=== PATIENT | male | born 1970 | race Caucasian/White ===

== ENCOUNTER 2017-10-17 17:39 | Emergency (ER) | payer MEDICAID, SELFPAY ==
[2017-10-17 17:40] VITALS: BP 142/98; PULSE 127; RESP 16; TEMP 36.4; O2SAT 98; BMI 27.8
[2017-10-17 18:51] LABS: Absolute Lymphocyte Count 3.68 X10^3/ul (0.83-4.51); Absolute Neutrophil Count 2.9 X10^3/uL (2.0-7.7); Basophil# 0.07 X10^3/uL; Eosinophil# 0.08 X10^3/uL; Eosinophils% 1.1 % (0-5); Hematocrit 49.2 % (40-54); Hemoglobin 17.4 g/dl (13.0-16.5); Lymphocyte # 3.68 X10^3/ul (4.0); Lymphocyte % 50.8 % (19-41); Mean Corp Hgb Conc 35.4 g/gl (32-36); Mean Corpuscular Hgb 30.7 pg (27.0-32.0); Mean Corpuscular Volume 86.9 fL (80-94); Mean Platelet Vol. 9.2 fl (6.2-12.0); Monocyte# 0.54 X10^3/uL; Monocyte% 7.4 % (0-10); Neutrophil # 2.88 X10^3/uL (2.7-7.7); Neutrophil % 39.7 % (47-70); Platelet Count 320 K/mm3 (150-450); RBC Distribution Width CV 14.2 % (11.6-14.6); RBC Distribution Width SD 45.2 fl (35.1-43.9); Red Blood Count 5.66 M/mm3 (4.6-6.2); White Blood Count 7.3 K/mm3 (4.4-11.0)
[2017-10-17 18:55] LABS: ALB/GLOB Ratio 0.8 RATIO (0.9-2.4); AST(SGOT) 22 U/L (15-37); Alanine Aminotransfer ALT/SGPT 29 U/L (16-61); Albumin, Serum 3.9 g/dL (3.2-5.0); Alkaline Phosphatase 132 U/L (45-117); Anion Gap 9 (5-15); BUN 7 mg/dL (7-18); BUN/Creat Ratio 7.9 RATIO (10-20); Calcium,Total 8.8 mg/dL (8.5-10.1); Chloride 102 mmol/L (98-107); Creatinine, Serum 0.88 mg/dL (0.70-1.30); EST Glomerular Filtration Rate 99 mL/min (>60); Est Glom Filt Rate - Afr Amer 120 mL/min (>60); Estimated Creatinine Clearance 111.71 ml/min; Globulin 4.6 g/dL (2.2-4.2); Glucose 233 mg/dL (74-106); Potassium 3.8 mmol/L (3.5-5.1); Protein, Total 8.5 g/dL (6.4-8.2); Sodium Level 135 mmol/L (136-145)
[2017-10-17 18:59] LABS: POSITIVE COUNT NO; POSITIVE DIFFERENTIAL NO; POSITIVE MORPHOLOGY NO
--- NOTE | 2017-10-17 19:07 | ED.RN ---
DR GONZALES NOTIFIED OF ETOH RESULTS
[2017-10-17] MEDS: LORazepam 2 MG/ML Syringe 1 MG IV (19:34)
[2017-10-17 19:46] VITALS: PULSE 105; RESP 18; O2SAT 98
--- NOTE | 2017-10-17 19:57 | ED.VISSUMM ---
- ER Visit Summary Date of Service: 10/17/17 Chief Complaint: Alcoholism History of Present Illness: The patient is a 47 M who presents with alcoholism. He has been an alcoholic for at least 30 years. He feels anxious. He states I am drinking myself to . He is not suicidal or homicidal. He has been through detox before with [facility]. He states he drinks at least a 12 pack of beer per day. His last drink was about an hour before presentation. He otherwise denies fevers chest pain shortness of breath nausea vomiting diarrhea. Physical Examination: Afebrile initial heart rate 127 otherwise unremarkable Moist mucous membranes Heart regular rhythm tachycardia Lungs are clear Abdomen soft Alert Patient is very anxious and tearful Test Results: CBC normal. Chemistry notable for glucose 233 sodium 135. Alkaline phosphatase 132. Alcohol 361. Emergency Department Course and Treatment: Patient is currently severely intoxicated. His tachycardia is not due to alcohol withdrawal. It is related to his anxiety. He was given a dose of IV Ativan here for anxiety. He is much more calm and cooperative on reevaluation. Heart rate is normal on evaluation. He is currently intoxicated and not an alcohol withdrawal so does not meet admission criteria. Therefore he was advised to follow-up as an outpatient with [facility]. He was instructed on signs and symptoms to monitor for, conditions under which to return to the emergency department was discharged home. He is agreeable to this plan. Treatment Plan: [] Disposition: Discharge Impression: Acute alcohol intoxication Anxiety This note was generated with WeShow dictation software. It may contain incorrect words, spelling, and punctuation that were not noted in review of the chart prior to signing ED Disposition - Plan for ED Patient: Chief Complaint: Substance Abuse Referrals: Jose Enrique Shoemaker MD [Primary Care Provider] -
--- NOTE | 2017-10-17 19:59 | ED.DEP ---
ED Disposition - Plan for ED Patient: Chief Complaint: Substance Abuse Instructions: ED Alcohol Abuse Referrals: Jose Enrique Shoemaker MD [Primary Care Provider] - [facility] [GROUP OF PHYSICIANS] -
[2017-10-17 20:06] VITALS: BP 164/88; PULSE 105; RESP 16; O2SAT 98
[2017-10-17 20:18] LABS: Amphetamine Urine VISTA NEGATIVE (<1000 ng/mL); Barbiturate Urine VISTA NEGATIVE (< 200 ng/mL); Benzodiazepine Urine VISTA NEGATIVE (< 200 ng/mL); Cocaine Urine VISTA NEGATIVE (< 300 ng/mL); Ecstacy Urine VISTA NEGATIVE (< 500 ng/mL); Methadone Urine VISTA NEGATIVE (< 300 ng/mL); PCP Urine VISTA NEGATIVE (< 25 ng/mL); THC Urine VISTA NEGATIVE (< 50 ng/mL); Vista UDS pH Range 7
== END 2017-10-17 20:10 | disposition home or self-care (01) ==
LOC: ED 18:53
PROVIDERS: Emergency Provider Emergency Medicine; Family Provider Family Medicine; PCP Family Medicine
DX: F10.229 Alcohol dependence with intoxication, unspecified (principal); Y90.8 Blood alcohol level of 240 mg/100 ml or more; F41.9 Anxiety disorder, unspecified; K21.9 Gastro-esophageal reflux disease without esophagitis; E11.9 Type 2 diabetes mellitus without complications; I10 Essential (primary) hypertension; E78.00 Pure hypercholesterolemia, unspecified
CPT/HCPCS: 80053; 80307; 80320; 85025; 96374; 99284; A4216; G0480

== ENCOUNTER 2017-11-04 09:46 | Inpatient (IN) | payer MEDICAID, SELFPAY ==
[2017-11-04] VITALS (21 sets, daily range): BP systolic 127–185; BP diastolic 78–126; PULSE 73–109; RESP 14–29; TEMP 36.3–37.3; O2SAT 93–99; BMI 30.3
[2017-11-04] MEDS: LORazepam 2 MG/ML Syringe 1 MG IV (10:18)
--- NOTE | 2017-11-04 10:18 | ED.DCSUM_ITS ---
- ER Visit Summary Date of Service: 11/04/17 Chief Complaint: Alcohol withdrawal History of Present Illness: The patient is a 47 M with a history of alcoholism. He drinks 18-24 beers per day. His last use was yesterday evening around 9 PM , approximately 13 hours ago. He is having headache, anxiety, and tremors. He has a history of DTs and withdrawal seizures. Physical Examination: Afebrile. Heart rate 109 and blood pressure 163/107. Otherwise vitals unremarkable. He appears anxious and has a diffuse 2 Hz tremor. No focal or lateralizing neurologic abnormalities. Skin appears normal without jaundice. Heart tachycardic but regular. Lungs clear. Abdomen soft and nontender. No suicidal or homicidal ideation. Test Results: CBC, CMP, tox screen, alcohol testing are pending. EKG showed sinus rhythm at a rate of 96 with a left anterior fascicular block. Emergency Department Course and Treatment: Patient placed on a monitor. He had seizure precautions. He was treated with Ativan while awaiting results. Workup was unremarkable. Glucose is 302. He received additional Ativan, but his vitals and symptoms improved. Patient was discussed with the hospitalist and will be admitted to PCU. Treatment Plan: As above Disposition: Admission Impression: 1. Alcohol withdrawal This note was generated with WakeMate dictation software. It may contain incorrect words, spelling, and punctuation that were not noted in review of the chart prior to signing ED Disposition - Plan for ED Patient: Chief Complaint: Substance Abuse Referrals: Jose Enrique Shoemaker MD [Primary Care Provider] -
[2017-11-04 10:22] LABS: Absolute Lymphocyte Count 2.78 X10^3/ul (0.83-4.51); Absolute Neutrophil Count 6.4 X10^3/uL (2.0-7.7); Basophil# 0.09 X10^3/uL; Basophil% 0.9 % (0-1); Hematocrit 40.5 % (40-54); Hemoglobin 13.9 g/dl (13.0-16.5); Lymphocyte # 2.78 X10^3/ul (4.0); Mean Corp Hgb Conc 34.3 g/gl (32-36); Mean Corpuscular Hgb 30.5 pg (27.0-32.0); Mean Corpuscular Volume 88.8 fL (80-94); Mean Platelet Vol. 9.2 fl (6.2-12.0); Monocyte# 0.96 X10^3/uL; Monocyte% 9.3 % (0-10); Neutrophil # 6.35 X10^3/uL (2.7-7.7); Neutrophil % 61.5 % (47-70); POSITIVE COUNT NO; POSITIVE DIFFERENTIAL NO; POSITIVE MORPHOLOGY NO; Platelet Count 437 K/mm3 (150-450); RBC Distribution Width CV 14.9 % (11.6-14.6); RBC Distribution Width SD 47.6 fl (35.1-43.9); Red Blood Count 4.56 M/mm3 (4.6-6.2); White Blood Count 10.3 K/mm3 (4.4-11.0)
[2017-11-04 10:38] LABS: AST(SGOT) 14 U/L (15-37); Alanine Aminotransfer ALT/SGPT 28 U/L (16-61); Alkaline Phosphatase 109 U/L (45-117); Anion Gap 13 (5-15); BUN 12 mg/dL (7-18); BUN/Creat Ratio 15.6 RATIO (10-20); Chloride 101 mmol/L (98-107); Creatinine, Serum 0.77 mg/dL (0.70-1.30); EST Glomerular Filtration Rate 115 mL/min (>60); Est Glom Filt Rate - Afr Amer 140 mL/min (>60); Estimated Creatinine Clearance 127.67 ml/min; Globulin 3.9 g/dL (2.2-4.2); Glucose 302 mg/dL (74-106); Potassium 4.1 mmol/L (3.5-5.1); Protein, Total 7.9 g/dL (6.4-8.2); Sodium Level 138 mmol/L (136-145)
[2017-11-04 11:14] LABS: Alcohol, Blood (Medical)-Serum < 3.0 mg/dL
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
[2017-11-04] MEDS: 0.9% Normal Saline 1,000 ML 75 ML IV (14:32)
[2017-11-04] MEDS: hydroCHLOROthiazide 25 MG Tablet PO (14:37)
[2017-11-04] MEDS: Lisinopril 20 MG Tablet PO (14:37)
[2017-11-04] MEDS: amLODIPine 5 MG Tablet PO (14:37)
[2017-11-04] MEDS: Multivitamins,Ther W-Minerals Tablet 1 TABLET PO (14:37)
[2017-11-04] MEDS: Enoxaparin 40 MG/0.4 ML Syringe SC (14:38)
[2017-11-04] MEDS: LORazepam 2 MG/ML Syringe IV ×3 (14:57→21:12)
[2017-11-04 15:07] LABS: M R Staph aureus DNA By PCR Negative (Negative); Probe Check PASS; Specimen Processing Control PASS
[2017-11-04] MEDS: Insulin Lispro 100 UNIT/ML INSULN.PEN SC ×2 (16:19→21:07)
[2017-11-04 16:20] LABS: Bedside Glucose 263 mg/dL (70-110)
[2017-11-04] MEDS: LORazepam 1 MG Tablet 2 MG PO (19:46)
[2017-11-04] MEDS: 0.9% NaCl Peripheral Flush Adult/Peds IV (21:12)
[2017-11-04 21:15] LABS: Bedside Glucose 328 mg/dL (70-110)
[2017-11-05] VITALS (29 sets, daily range): BP systolic 98–156; BP diastolic 68–136; PULSE 70–109; RESP 12–30; TEMP 35.8–36.6; O2SAT 90–100
[2017-11-05 00:40] LABS: Amphetamine Urine VISTA NEGATIVE (<1000 ng/mL); Barbiturate Urine VISTA POSITIVE (< 200 ng/mL); Benzodiazepine Urine VISTA NEGATIVE (< 200 ng/mL); Cocaine Urine VISTA NEGATIVE (< 300 ng/mL); Ecstacy Urine VISTA NEGATIVE (< 500 ng/mL); Methadone Urine VISTA NEGATIVE (< 300 ng/mL); PCP Urine VISTA NEGATIVE (< 25 ng/mL); THC Urine VISTA NEGATIVE (< 50 ng/mL); Vista UDS pH Range 6
[2017-11-05] MEDS: LORazepam 2 MG/ML Syringe IV ×7 (02:12→23:47)
[2017-11-05] MEDS: 0.9% NaCl Peripheral Flush Adult/Peds IV ×8 (04:53→23:48)
[2017-11-05 05:01] LABS: Absolute Neutrophil Count 5.8 X10^3/uL (2.0-7.7); Basophil# 0.09 X10^3/uL; Basophil% 0.9 % (0-1); Eosinophils% 2.9 % (0-5); Hematocrit 42.5 % (40-54); Hemoglobin 14.6 g/dl (13.0-16.5); Lymphocyte % 33.2 % (19-41); Mean Corp Hgb Conc 34.4 g/gl (32-36); Mean Corpuscular Hgb 30.7 pg (27.0-32.0); Mean Corpuscular Volume 89.3 fL (80-94); Mean Platelet Vol. 9.5 fl (6.2-12.0); Monocyte# 0.69 X10^3/uL; Monocyte% 6.7 % (0-10); Neutrophil # 5.75 X10^3/uL (2.7-7.7); Neutrophil % 56.1 % (47-70); POSITIVE COUNT NO; POSITIVE DIFFERENTIAL NO; POSITIVE MORPHOLOGY NO; Platelet Count 452 K/mm3 (150-450); RBC Distribution Width CV 14.7 % (11.6-14.6); RBC Distribution Width SD 47.6 fl (35.1-43.9); Red Blood Count 4.76 M/mm3 (4.6-6.2); White Blood Count 10.3 K/mm3 (4.4-11.0)
[2017-11-05 06:31] LABS: Anion Gap 10 (5-15); BUN 14 mg/dL (7-18); BUN/Creat Ratio 19.6 RATIO (10-20); Calcium,Total 8.7 mg/dL (8.5-10.1); Chloride 98 mmol/L (98-107); Creatinine, Serum 0.72 mg/dL (0.70-1.30); EST Glomerular Filtration Rate 125 mL/min (>60); Est Glom Filt Rate - Afr Amer 152 mL/min (>60); Estimated Creatinine Clearance 136.54 ml/min; Glucose 227 mg/dL (74-106); Potassium 3.8 mmol/L (3.5-5.1); Sodium Level 137 mmol/L (136-145)
[2017-11-05 06:50] LABS: Bedside Glucose 238 mg/dL (70-110)
--- NOTE | 2017-11-05 06:54 | PN_ITS ---
Subjective: Patient did okay overnight. Patient did require 6 mg of Ativan in addition to 2 doses of Librium as directed by CICO protocol. Patient recently dosed with Ativan and is not very interactive at this time. Nursing staff did note significant snoring and periods of obstructive sleep apnea overnight. General: No apparent distress, - - RASS -2. Appears older than stated age. HEENT: Atraumatic, PERRLA, EOMI, Normocephalic, - - Scleral injection without icterus Oral: Moist Mucosa, No Gingival or Mucosal Lesions/ Ulcerations Neck: Supple, No JVD, No Nodes, Trachea Midline Lungs: Clear to auscultation, Normal air movement, No rhonchi, No wheeze, No rales, - - Symmetric expansion. No dullness to percussion. Cardiovascular: Regular rate, Regular Rhythm, Normal S1, Normal S2, No murmurs, No rub noted, No Gallop Abdomen: Bowel Sounds Present, Soft, Non Tender, Non-Distended, Obese Extremities: No clubbing, No cyanosis, Edema - Trace lower extremity Skin: No rashes, No breakdown Musculoskeletal: No Tenderness to Palpation of Joints or Extremities Lymphatic: No Cervical, Supraclavicular, or Inguinal Adenopathy Neurological: Cranial nerves II-XII grossly intact, Neuro grossly intact Psych/Mental Status: Flat Affect, Restless Vital Signs Temp Pulse Resp BP Pulse Ox 35.8 C L 72 18 150/103 H 90 11/05/17 04:00 11/05/17 06:00 11/05/17 06:00 11/05/17 06:00 11/05/17 06:12 Oxygen Flow Rate (L/min) 2 Oxygen Delivery Method Nasal Cannula Weight: 98 kg Body Mass Index (BMI) 30.0 Intake and Output for Last 24 Hours 11/03/17 11/04/17 11/05/17 23:59 23:59 23:59 Intake Total 1621 / 1621 317 / 317 Output Total 1350 / 1350 500 / 500 Balance 271 / 271 -183 / -183 Labs (Last 48 Hours) 11/04/17 11/04/17 11/04/17 13:45 16:14 21:05 WBC RBC Hgb Hct MCV MCH MCHC RDW RDW Differential Plt Count MPV Immature Gran % (Auto) Neut % (Auto) Lymph % (Auto) [place] % (Auto) Eos % (Auto) Baso % (Auto) Absolute Neuts (auto) Absolute Lymphs (auto) Total Counted Sodium Potassium Chloride Carbon Dioxide Anion Gap BUN Creatinine Estim Creat Clear Calc Est GFR (MDRD) Af Amer Est GFR (MDRD) Non-Af BUN/Creatinine Ratio Glucose Calcium Urine Opiates Screen Urine Methadone Screen Ur Barbiturates Screen Ur Phencyclidine Scrn Ur Amphetamines Screen U Methamphetamin-MDMA U Benzodiazepines Scrn Urine Cocaine Screen U Cannabinoids Screen Ur Drug Screen Comment MRSA (PCR) Negative POC Glucose 263 H 328 H 11/05/17 11/05/17 11/05/17 00:10 04:45 04:45 WBC 10.3 RBC 4.76 Hgb 14.6 Hct 42.5 MCV 89.3 MCH 30.7 MCHC 34.4 RDW 14.7 H RDW Differential 47.6 H Plt Count 452 H MPV 9.5 Immature Gran % (Auto) 0.200 Neut % (Auto) 56.1 Lymph % (Auto) 33.2 [place] % (Auto) 6.7 Eos % (Auto) 2.9 Baso % (Auto) 0.9 Absolute Neuts (auto) 5.8 Absolute Lymphs (auto) 3.40 Total Counted Not Reportable Sodium Cancelled Potassium Cancelled Chloride Cancelled Carbon Dioxide Cancelled Anion Gap Cancelled BUN Cancelled Creatinine Cancelled Estim Creat Clear Calc Cancelled Est GFR (MDRD) Af Amer Cancelled Est GFR (MDRD) Non-Af Cancelled BUN/Creatinine Ratio Cancelled Glucose Cancelled Calcium Cancelled Urine Opiates Screen NEGATIVE Urine Methadone Screen NEGATIVE Ur Barbiturates Screen POSITIVE H Ur Phencyclidine Scrn NEGATIVE Ur Amphetamines Screen NEGATIVE U Methamphetamin-MDMA NEGATIVE U Benzodiazepines Scrn NEGATIVE Urine Cocaine Screen NEGATIVE U Cannabinoids Screen NEGATIVE Ur Drug Screen Comment MRSA (PCR) POC Glucose 11/05/17 06:00 WBC RBC Hgb Hct MCV MCH MCHC RDW RDW Differential Plt Count MPV Immature Gran % (Auto) Neut % (Auto) Lymph % (Auto) [place] % (Auto) Eos % (Auto) Baso % (Auto) Absolute Neuts (auto) Absolute Lymphs (auto) Total Counted Sodium 137 Potassium 3.8 Chloride 98 Carbon Dioxide 29.0 Anion Gap 10 BUN 14 Creatinine 0.72 Estim Creat Clear Calc 136.54 Est GFR (MDRD) Af Amer 152 Est GFR (MDRD) Non-Af 125 BUN/Creatinine Ratio 19.6 Glucose 227 H Calcium 8.7 Urine Opiates Screen Urine Methadone Screen Ur Barbiturates Screen Ur Phencyclidine Scrn Ur Amphetamines Screen U Methamphetamin-MDMA U Benzodiazepines Scrn Urine Cocaine Screen U Cannabinoids Screen Ur Drug Screen Comment MRSA (PCR) POC Glucose Medical Necessity - Tobacco Use Smoking Status: Current every day smoker Tobacco Use: Cigarettes Assessment/Plan All Active Problems Alcohol withdrawal (Acute) RECOMMENDATIONS: 1. Continue Librium therapy as needed and CIWA protocol 2. Supplemental oxygen as necessary with sleep 3. Reinitiate baseline antihypertensive medications 4. Continue basal insulin with sliding scale insulin 5. Seizure precautions IMPRESSIONS: 1. Alcohol withdrawal with history of DTs Patient appears to be responding well to Librium and Ativan therapy. Anticipate peak symptoms in the next 24-48 hours. Increase in oxygen demand likely secondary to the development of sleep apnea that would be exacerbated by Librium and Ativan. No seizure activity or other complications have been noted that this time. Anticipate transfer from the intensive care unit tomorrow. 2. 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 Patient is on 50 units of Lantus with sliding scale insulin at home. Patient appears to be tolerating elevated dose of Lantus well. Continue to use sliding scale insulin as necessary. 3. Obesity/anxiety/depression/hypertension/tobacco abuse Complicates care, management, recovery and prognosis. Reinitiated patient 's baseline antihypertensive medications. Patient will be offered a nicotine patch. Code Visit Inpatient E&M: 03316 [facility] Hosp L3
[2017-11-05] MEDS: Insulin Lispro 100 UNIT/ML INSULN.PEN SC ×4 (07:49→21:53)
[2017-11-05] MEDS: Multivitamins,Ther W-Minerals Tablet 1 TABLET PO (07:55)
[2017-11-05] MEDS: hydroCHLOROthiazide 25 MG Tablet PO (07:55)
[2017-11-05] MEDS: Lisinopril 20 MG Tablet PO (07:56)
[2017-11-05] MEDS: amLODIPine 5 MG Tablet PO (07:56)
[2017-11-05] MEDS: Enoxaparin 40 MG/0.4 ML Syringe SC (07:56)
--- NOTE | 2017-11-05 08:29 | PCM.PROGNOTE ---
Subjective: Chief complaint: Follow-up after admission for acute alcohol withdrawal. Patient seen and examined. No acute events overnight. He still symptomatic, complaining of anxiety, restlessness, tremors and feeling jittery. He denies any more abdominal cramps or diarrhea. All over, he mentioned that there is no significant improvement. He received a total of 16 mg of IV Ativan since admission. This morning, he is slightly tachycardic, blood pressure on the higher side, other vital signs are stable. - Physical Exam General: Alert, Oriented x3, Cooperative, - - Restless, tremulous. HEENT: Atraumatic, PERRLA, EOMI, Normocephalic Oral: Moist Mucosa, No Gingival or Mucosal Lesions/ Ulcerations Neck: Supple, No JVD, Negative Carotid Bruits, Trachea Midline, Thyroid Normal Size and Texture Lungs: Clear to auscultation, Normal air movement, No rhonchi, No wheeze, No rales Cardiovascular: Regular rate, Regular Rhythm, Normal S1, Normal S2, PMI Normal Abdomen: Bowel Sounds Present, Soft, Non Tender, Non-Distended, No Hepato-splenomegaly Extremities: No clubbing, No cyanosis, No edema Skin: No rashes, No breakdown Lymphatic: No Cervical, Supraclavicular, or Inguinal Adenopathy Neurological: Cranial nerves II-XII grossly intact, Motor Exam 5/5 strength throughout Psych/Mental Status: Anxious, Restless, Alert and oriented to time, place, person, mood and affect Vital Signs Temp Pulse Resp BP Pulse Ox 97.6 F L 79 16 150/136 H 93 11/05/17 07:30 11/05/17 08:00 11/05/17 08:00 11/05/17 08:00 11/05/17 08:00 Oxygen Flow Rate (L/min) 2 Oxygen Delivery Method Room Air Weight: 216 lb 0.848 oz Body Mass Index (BMI) 30.0 Intake and Output for Last 24 Hours 11/03/17 11/04/17 11/05/17 23:59 23:59 23:59 Intake Total 1621 / 1621 317 / 317 Output Total 1350 / 1350 500 / 500 Balance 271 / 271 -183 / -183 Laboratory Tests Past 24 Hrs 11/04/17 11/05/17 11/05/17 13:45 00:10 04:45 WBC 10.3 RBC 4.76 Hgb 14.6 Hct 42.5 MCV 89.3 MCH 30.7 MCHC 34.4 RDW 14.7 H RDW Differential 47.6 H Plt Count 452 H MPV 9.5 Immature Gran % (Auto) 0.200 Neut % (Auto) 56.1 Lymph % (Auto) 33.2 [place] % (Auto) 6.7 Eos % (Auto) 2.9 Baso % (Auto) 0.9 Absolute Neuts (auto) 5.8 Absolute Lymphs (auto) 3.40 Total Counted Not Reportable Sodium Potassium Chloride Carbon Dioxide Anion Gap BUN Creatinine Estim Creat Clear Calc Est GFR (MDRD) Af Amer Est GFR (MDRD) Non-Af BUN/Creatinine Ratio Glucose Calcium Urine Opiates Screen NEGATIVE Urine Methadone Screen NEGATIVE Ur Barbiturates Screen POSITIVE H Ur Phencyclidine Scrn NEGATIVE Ur Amphetamines Screen NEGATIVE U Methamphetamin-MDMA NEGATIVE U Benzodiazepines Scrn NEGATIVE Urine Cocaine Screen NEGATIVE U Cannabinoids Screen NEGATIVE Ur Drug Screen Comment MRSA (PCR) Negative 11/05/17 11/05/17 04:45 06:00 WBC RBC Hgb Hct MCV MCH MCHC RDW RDW Differential Plt Count MPV Immature Gran % (Auto) Neut % (Auto) Lymph % (Auto) [place] % (Auto) Eos % (Auto) Baso % (Auto) Absolute Neuts (auto) Absolute Lymphs (auto) Total Counted Sodium Cancelled 137 Potassium Cancelled 3.8 Chloride Cancelled 98 Carbon Dioxide Cancelled 29.0 Anion Gap Cancelled 10 BUN Cancelled 14 Creatinine Cancelled 0.72 Estim Creat Clear Calc Cancelled 136.54 Est GFR (MDRD) Af Amer Cancelled 152 Est GFR (MDRD) Non-Af Cancelled 125 BUN/Creatinine Ratio Cancelled 19.6 Glucose Cancelled 227 H Calcium Cancelled 8.7 Urine Opiates Screen Urine Methadone Screen Ur Barbiturates Screen Ur Phencyclidine Scrn Ur Amphetamines Screen U Methamphetamin-MDMA U Benzodiazepines Scrn Urine Cocaine Screen U Cannabinoids Screen Ur Drug Screen Comment MRSA (PCR) POC Glucose 11/05/17 11/04/17 11/04/17 06:47 21:05 16:14 POC Glucose 238 H 328 H 263 H Medical Necessity - Tobacco Use Smoking Status: Current every day smoker Tobacco Use: Cigarettes Assessment/Plan All Active Problems Alcohol withdrawal (Acute) This is a 47 years old male patient presented to the medicine because of anxiety, restlessness, tremors, abdominal cramps and diarrhea as well as nausea and vomiting due to alcohol withdrawal and he requested to be admitted for stabilization. #1 acute alcohol withdrawal: He is on IV Ativan protocol, thiamine and folic acid supplement, on Librium, Bentyl, Vistaril and methocarbamol. He is still symptomatic, tremulous, anxious and restless. Slightly tachycardic, blood pressure on the higher side. Repeat routine blood work from today reviewed, was unremarkable. Urine drug screen was positive for barbiturates. Plan to continue same treatment. #2 alcohol abuse/history of alcohol withdrawal seizure: Plan as above, continue same treatment, close monitoring, seizure precautions. #3 type 2 diabetes mellitus: Uncontrolled, hemoglobin A1c was 10.9 on February,. Blood sugar has been in the range of 200-300. Continue ADA diet, Accu-Cheks, insulin sliding scale, Lantus insulin. #4 hypertension: Blood pressure is elevated which is likely secondary to alcohol withdrawal. continue Norvasc, continue IV labetalol as needed. #5 Anxiety/depression: Continue Seroquel. #6 DVT prophylaxis: Subcu Lovenox. This note was generated with [employer] dictation software. It may contain incorrect words, spelling, and punctuation that were not noted in checking the note before signing. Code Visit Inpatient E&M: 16161 Subs Hosp L2
--- NOTE | 2017-11-05 08:34 | PN_ITS ---
Subjective: Chief complaint: Follow-up after admission for acute alcohol withdrawal. Patient seen and examined. No acute events overnight. He still symptomatic, complaining of anxiety, restlessness, tremors and feeling jittery. He denies any more abdominal cramps or diarrhea. All over, he mentioned that there is no significant improvement. He received a total of 16 mg of IV Ativan since admission. This morning, he is slightly tachycardic, blood pressure on the higher side, other vital signs are stable. - Physical Exam General: Alert, Oriented x3, Cooperative, - - Restless, tremulous. HEENT: Atraumatic, PERRLA, EOMI, Normocephalic Oral: Moist Mucosa, No Gingival or Mucosal Lesions/ Ulcerations Neck: Supple, No JVD, Negative Carotid Bruits, Trachea Midline, Thyroid Normal Size and Texture Lungs: Clear to auscultation, Normal air movement, No rhonchi, No wheeze, No rales Cardiovascular: Regular rate, Regular Rhythm, Normal S1, Normal S2, PMI Normal Abdomen: Bowel Sounds Present, Soft, Non Tender, Non-Distended, No Hepato- splenomegaly Extremities: No clubbing, No cyanosis, No edema Skin: No rashes, No breakdown Lymphatic: No Cervical, Supraclavicular, or Inguinal Adenopathy Neurological: Cranial nerves II-XII grossly intact, Motor Exam 5/5 strength throughout Psych/Mental Status: Anxious, Restless, Alert and oriented to time, place, person, mood and affect Vital Signs Temp Pulse Resp BP Pulse Ox 97.6 F L 79 16 150/136 H 93 11/05/17 07:30 11/05/17 08:00 11/05/17 08:00 11/05/17 08:00 11/05/17 08:00 Oxygen Flow Rate (L/min) 2 Oxygen Delivery Method Room Air Weight: 216 lb 0.848 oz Body Mass Index (BMI) 30.0 Intake and Output for Last 24 Hours 11/03/17 11/04/17 11/05/17 23:59 23:59 23:59 Intake Total 1621 / 1621 317 / 317 Output Total 1350 / 1350 500 / 500 Balance 271 / 271 -183 / -183 Laboratory Tests Past 24 Hrs 11/04/17 11/05/17 11/05/17 13:45 00:10 04:45 WBC 10.3 RBC 4.76 Hgb 14.6 Hct 42.5 MCV 89.3 MCH 30.7 MCHC 34.4 RDW 14.7 H RDW Differential 47.6 H Plt Count 452 H MPV 9.5 Immature Gran % (Auto) 0.200 Neut % (Auto) 56.1 Lymph % (Auto) 33.2 [place] % (Auto) 6.7 Eos % (Auto) 2.9 Baso % (Auto) 0.9 Absolute Neuts (auto) 5.8 Absolute Lymphs (auto) 3.40 Total Counted Not Reportable Sodium Potassium Chloride Carbon Dioxide Anion Gap BUN Creatinine Estim Creat Clear Calc Est GFR (MDRD) Af Amer Est GFR (MDRD) Non-Af BUN/Creatinine Ratio Glucose Calcium Urine Opiates Screen NEGATIVE Urine Methadone Screen NEGATIVE Ur Barbiturates Screen POSITIVE H Ur Phencyclidine Scrn NEGATIVE Ur Amphetamines Screen NEGATIVE U Methamphetamin-MDMA NEGATIVE U Benzodiazepines Scrn NEGATIVE Urine Cocaine Screen NEGATIVE U Cannabinoids Screen NEGATIVE Ur Drug Screen Comment MRSA (PCR) Negative 11/05/17 11/05/17 04:45 06:00 WBC RBC Hgb Hct MCV MCH MCHC RDW RDW Differential Plt Count MPV Immature Gran % (Auto) Neut % (Auto) Lymph % (Auto) [place] % (Auto) Eos % (Auto) Baso % (Auto) Absolute Neuts (auto) Absolute Lymphs (auto) Total Counted Sodium Cancelled 137 Potassium Cancelled 3.8 Chloride Cancelled 98 Carbon Dioxide Cancelled 29.0 Anion Gap Cancelled 10 BUN Cancelled 14 Creatinine Cancelled 0.72 Estim Creat Clear Calc Cancelled 136.54 Est GFR (MDRD) Af Amer Cancelled 152 Est GFR (MDRD) Non-Af Cancelled 125 BUN/Creatinine Ratio Cancelled 19.6 Glucose Cancelled 227 H Calcium Cancelled 8.7 Urine Opiates Screen Urine Methadone Screen Ur Barbiturates Screen Ur Phencyclidine Scrn Ur Amphetamines Screen U Methamphetamin-MDMA U Benzodiazepines Scrn Urine Cocaine Screen U Cannabinoids Screen Ur Drug Screen Comment MRSA (PCR) POC Glucose 11/05/17 11/04/17 11/04/17 06:47 21:05 16:14 POC Glucose 238 H 328 H 263 H Medical Necessity - Tobacco Use Smoking Status: Current every day smoker Tobacco Use: Cigarettes Assessment/Plan All Active Problems Alcohol withdrawal (Acute) This is a 47 years old male patient presented to the medicine because of anxiety , restlessness, tremors, abdominal cramps and diarrhea as well as nausea and vomiting due to alcohol withdrawal and he requested to be admitted for stabilization. #1 acute alcohol withdrawal: He is on IV Ativan protocol, thiamine and folic acid supplement, on Librium, Bentyl, Vistaril and methocarbamol. He is still symptomatic, tremulous, anxious and restless. Slightly tachycardic, blood pressure on the higher side. Repeat routine blood work from today reviewed, was unremarkable. Urine drug screen was positive for barbiturates. Plan to continue same treatment. #2 alcohol abuse/history of alcohol withdrawal seizure: Plan as above, continue same treatment, close monitoring, seizure precautions. #3 type 2 diabetes mellitus: Uncontrolled, hemoglobin A1c was 10.9 on February,. Blood sugar has been in the range of 200-300. Continue ADA diet, Accu- Cheks, insulin sliding scale, Lantus insulin. #4 hypertension: Blood pressure is elevated which is likely secondary to alcohol withdrawal. continue Norvasc, continue IV labetalol as needed. #5 Anxiety/depression: Continue Seroquel. #6 DVT prophylaxis: Subcu Lovenox. This note was generated with [employer] dictation software. It may contain incorrect words, spelling, and punctuation that were not noted in checking the note before signing. Code Visit Inpatient E&M: 30382 Subs Hosp L2
[2017-11-05] MEDS: 0.9% NaCl IVPB Med Flush (250 mL) 15 ML IV (10:21)
[2017-11-05] MEDS: Glucerna Shake 120 ML LIQUID PO ×4 (10:22→21:49)
[2017-11-05 11:26] LABS: Bedside Glucose 296 mg/dL (70-110)
--- NOTE | 2017-11-05 12:21 | CASEMGMT ---
SOCIAL WORK: Referral received from teacher assistant this date for SW consult due to admitting diagnosis of alcohol withdrawal. Collaboration with RN who reports that patient had hoped to be admitted under [facility] however due to risk factors of seizures and intubation he was not a candidate. This SW met with patient in his room to introduce self and SW role at [facility]. Patient reports that he lives at home with Carin and that he has a good support system. He states that he is active with [facility] already and that he attends 12 Step Meetings. He has a sponsor however has not talked to him in quite awhile. SW encouraged patient to call sponsor while he is here to re-connect and make plans to meet after discharge; he agreed to do so. Patient states that he is able to work and drive when he is not drinking. He has history of being sober for 1.5 years however is not currently in recovery. His goal is to attend the IOP at [facility] upon hospital discharge. PLAN: Patient denies any needs or concerns for SW intervention. He is already active with [facility] and plans to attend their IOP upon hospital discharge. SW encouraged patient to contact his sponsor. Reina FERRIS,MONY
[2017-11-05] MEDS: LORazepam 1 MG Tablet 2 MG PO (15:08)
[2017-11-05 17:26] LABS: Bedside Glucose 302 mg/dL (70-110)
[2017-11-05 22:11] LABS: Bedside Glucose 255 mg/dL (70-110)
[2017-11-06] VITALS (22 sets, daily range): BP systolic 106–133; BP diastolic 68–110; PULSE 74–101; RESP 16–26; TEMP 35.9–37.3; O2SAT 91–99
[2017-11-06] MEDS: 0.9% NaCl Peripheral Flush Adult/Peds IV ×10 (01:48→23:18)
[2017-11-06] MEDS: LORazepam 2 MG/ML Syringe IV ×6 (01:48→23:17)
[2017-11-06 05:26] LABS: Absolute Lymphocyte Count 3.42 X10^3/ul (0.83-4.51); Absolute Neutrophil Count 7.2 X10^3/uL (2.0-7.7); Basophil# 0.09 X10^3/uL; Basophil% 0.7 % (0-1); Eosinophil# 0.34 X10^3/uL; Eosinophils% 2.8 % (0-5); Hematocrit 44.2 % (40-54); Hemoglobin 15.7 g/dl (13.0-16.5); Lymphocyte # 3.42 X10^3/ul (4.0); Mean Corp Hgb Conc 35.5 g/gl (32-36); Mean Corpuscular Volume 87.4 fL (80-94); Mean Platelet Vol. 9.6 fl (6.2-12.0); Monocyte# 1.07 X10^3/uL; Monocyte% 8.8 % (0-10); Platelet Count 478 K/mm3 (150-450); RBC Distribution Width CV 15.2 % (11.6-14.6); RBC Distribution Width SD 48.2 fl (35.1-43.9); Red Blood Count 5.06 M/mm3 (4.6-6.2); White Blood Count 12.2 K/mm3 (4.4-11.0)
[2017-11-06 05:27] LABS: POSITIVE COUNT NO; POSITIVE DIFFERENTIAL NO; POSITIVE MORPHOLOGY NO
[2017-11-06 05:52] LABS: Anion Gap 11 (5-15); BUN 18 mg/dL (7-18); BUN/Creat Ratio 24.5 RATIO (10-20); Chloride 97 mmol/L (98-107); Creatinine, Serum 0.74 mg/dL (0.70-1.30); EST Glomerular Filtration Rate 122 mL/min (>60); Est Glom Filt Rate - Afr Amer 147 mL/min (>60); Estimated Creatinine Clearance 132.85 ml/min; Glucose 213 mg/dL (74-106); Magnesium 1.9 mg/dL (1.6-2.6); Phosphorus 4.7 mg/dL (2.5-4.9); Sodium Level 135 mmol/L (136-145)
--- NOTE | 2017-11-06 06:29 | PCM.PN.INT ---
Subjective: Patient did okay overnight. Patient has had tremor noted and is reporting mild nausea. No emesis has been reported. No seizure activity has been reported. Patient has been tolerating a full diet without complications. Nursing continues to use 2 L nasal cannula with sleep and reports clinical sleep apnea. Objective: Patient has received 22 mg of Ativan and 3 as needed doses of Librium over the last 24 hours. General: Alert, Oriented x3, Cooperative, No apparent distress, - - RASS -1. Appears older than stated age. HEENT: Atraumatic, PERRLA, EOMI, - - No scleral icterus or injection noted. Oral: Moist Mucosa, No Gingival or Mucosal Lesions/ Ulcerations Neck: Supple, No JVD, No Nodes, Trachea Midline Lungs: Clear to auscultation, Normal air movement, No rhonchi, No wheeze, No rales, - - Symmetric expansion. No dullness to percussion. Cardiovascular: Regular rate, Regular Rhythm, Normal S1, Normal S2, No murmurs, No rub noted, No Gallop Abdomen: Bowel Sounds Present, Soft, Non Tender, Non-Distended Extremities: No clubbing, No cyanosis, No edema, Capillary Refill Less than 3 Seconds Skin: No rashes, No breakdown Musculoskeletal: No Tenderness to Palpation of Joints or Extremities Lymphatic: No Cervical, Supraclavicular, or Inguinal Adenopathy Neurological: Cranial nerves II-XII grossly intact, Neuro grossly intact, - - Slight tremor noted with movement. Psych/Mental Status: Flat Affect, Restless Vital Signs Temp Pulse Resp BP Pulse Ox 36.0 C L 74 26 H 114/93 H 91 11/06/17 00:00 11/06/17 05:00 11/06/17 05:00 11/06/17 05:00 11/06/17 05:00 Oxygen Flow Rate (L/min) 2 Oxygen Delivery Method Nasal Cannula Weight: 96.4 kg Body Mass Index (BMI) 30.0 Intake and Output for Last 24 Hours 11/04/17 11/05/17 11/06/17 23:59 23:59 23:59 Intake Total 1621 / 1621 1397 / 1397 Output Total 1350 / 1350 3350 / 3350 Balance 271 / 271 -1953 / -1952 Labs (Last 48 Hours) 11/04/17 11/04/17 11/04/17 13:45 16:14 21:05 WBC RBC Hgb Hct MCV MCH MCHC RDW RDW Differential Plt Count MPV Immature Gran % (Auto) Neut % (Auto) Lymph % (Auto) [place] % (Auto) Eos % (Auto) Baso % (Auto) Absolute Neuts (auto) Absolute Lymphs (auto) Total Counted Sodium Potassium Chloride Carbon Dioxide Anion Gap BUN Creatinine Estim Creat Clear Calc Est GFR (MDRD) Af Amer Est GFR (MDRD) Non-Af BUN/Creatinine Ratio Glucose Calcium Phosphorus Magnesium Urine Opiates Screen Urine Methadone Screen Ur Barbiturates Screen Ur Phencyclidine Scrn Ur Amphetamines Screen U Methamphetamin-MDMA U Benzodiazepines Scrn Urine Cocaine Screen U Cannabinoids Screen Ur Drug Screen Comment MRSA (PCR) Negative POC Glucose 263 H 328 H 11/05/17 11/05/17 11/05/17 00:10 04:45 04:45 WBC 10.3 RBC 4.76 Hgb 14.6 Hct 42.5 MCV 89.3 MCH 30.7 MCHC 34.4 RDW 14.7 H RDW Differential 47.6 H Plt Count 452 H MPV 9.5 Immature Gran % (Auto) 0.200 Neut % (Auto) 56.1 Lymph % (Auto) 33.2 [place] % (Auto) 6.7 Eos % (Auto) 2.9 Baso % (Auto) 0.9 Absolute Neuts (auto) 5.8 Absolute Lymphs (auto) 3.40 Total Counted Not Reportable Sodium Cancelled Potassium Cancelled Chloride Cancelled Carbon Dioxide Cancelled Anion Gap Cancelled BUN Cancelled Creatinine Cancelled Estim Creat Clear Calc Cancelled Est GFR (MDRD) Af Amer Cancelled Est GFR (MDRD) Non-Af Cancelled BUN/Creatinine Ratio Cancelled Glucose Cancelled Calcium Cancelled Phosphorus Magnesium Urine Opiates Screen NEGATIVE Urine Methadone Screen NEGATIVE Ur Barbiturates Screen POSITIVE H Ur Phencyclidine Scrn NEGATIVE Ur Amphetamines Screen NEGATIVE U Methamphetamin-MDMA NEGATIVE U Benzodiazepines Scrn NEGATIVE Urine Cocaine Screen NEGATIVE U Cannabinoids Screen NEGATIVE Ur Drug Screen Comment MRSA (PCR) POC Glucose 11/05/17 11/05/17 11/05/17 06:00 06:47 11:23 WBC RBC Hgb Hct MCV MCH MCHC RDW RDW Differential Plt Count MPV Immature Gran % (Auto) Neut % (Auto) Lymph % (Auto) [place] % (Auto) Eos % (Auto) Baso % (Auto) Absolute Neuts (auto) Absolute Lymphs (auto) Total Counted Sodium 137 Potassium 3.8 Chloride 98 Carbon Dioxide 29.0 Anion Gap 10 BUN 14 Creatinine 0.72 Estim Creat Clear Calc 136.54 Est GFR (MDRD) Af Amer 152 Est GFR (MDRD) Non-Af 125 BUN/Creatinine Ratio 19.6 Glucose 227 H Calcium 8.7 Phosphorus Magnesium Urine Opiates Screen Urine Methadone Screen Ur Barbiturates Screen Ur Phencyclidine Scrn Ur Amphetamines Screen U Methamphetamin-MDMA U Benzodiazepines Scrn Urine Cocaine Screen U Cannabinoids Screen Ur Drug Screen Comment MRSA (PCR) POC Glucose 238 H 296 H 11/05/17 11/05/17 11/06/17 17:22 21:52 05:05 WBC 12.2 H RBC 5.06 Hgb 15.7 Hct 44.2 MCV 87.4 MCH 31.0 MCHC 35.5 RDW 15.2 H RDW Differential 48.2 H Plt Count 478 H MPV 9.6 Immature Gran % (Auto) 0.700 Neut % (Auto) 59.0 Lymph % (Auto) 28.0 [place] % (Auto) 8.8 Eos % (Auto) 2.8 Baso % (Auto) 0.7 Absolute Neuts (auto) 7.2 Absolute Lymphs (auto) 3.42 Total Counted Not Reportable Sodium Potassium Chloride Carbon Dioxide Anion Gap BUN Creatinine Estim Creat Clear Calc Est GFR (MDRD) Af Amer Est GFR (MDRD) Non-Af BUN/Creatinine Ratio Glucose Calcium Phosphorus Magnesium Urine Opiates Screen Urine Methadone Screen Ur Barbiturates Screen Ur Phencyclidine Scrn Ur Amphetamines Screen U Methamphetamin-MDMA U Benzodiazepines Scrn Urine Cocaine Screen U Cannabinoids Screen Ur Drug Screen Comment MRSA (PCR) POC Glucose 302 H 255 H 11/06/17 05:05 WBC RBC Hgb Hct MCV MCH MCHC RDW RDW Differential Plt Count MPV Immature Gran % (Auto) Neut % (Auto) Lymph % (Auto) [place] % (Auto) Eos % (Auto) Baso % (Auto) Absolute Neuts (auto) Absolute Lymphs (auto) Total Counted Sodium 135 L Potassium 4.0 Chloride 97 L Carbon Dioxide 27.0 Anion Gap 11 BUN 18 Creatinine 0.74 Estim Creat Clear Calc 132.85 Est GFR (MDRD) Af Amer 147 Est GFR (MDRD) Non-Af 122 BUN/Creatinine Ratio 24.5 H Glucose 213 H Calcium 9.0 Phosphorus 4.7 Magnesium 1.9 Urine Opiates Screen Urine Methadone Screen Ur Barbiturates Screen Ur Phencyclidine Scrn Ur Amphetamines Screen U Methamphetamin-MDMA U Benzodiazepines Scrn Urine Cocaine Screen U Cannabinoids Screen Ur Drug Screen Comment MRSA (PCR) POC Glucose Medical Necessity - Tobacco Use Smoking Status: Current every day smoker Tobacco Use: Cigarettes Assessment/Plan All Active Problems Alcohol withdrawal (Acute) RECOMMENDATIONS: 1. Continue Librium therapy as needed and CIWA protocol 2. Supplemental oxygen as necessary with sleep 3. Continue baseline antihypertensive medications 4. Increase basal insulin with sliding scale insulin 5. Seizure precautions 6. Okay to leave the intensive care unit 7. Hemodynamically stable on room air. Will sign off from a critical care perspective IMPRESSIONS: 1. Alcohol withdrawal with history of DTs Patient has required 22 mg of Ativan and 3 as needed doses of Librium over the last 24 hours. That being said, patient has not had any seizure activity or airway compromise. Nocturnal oxygen likely secondary to untreated sleep apnea. Patient can likely be transferred to the PCU to continue weaning of Ativan therapy. 2. 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 Patient is on 50 units of Lantus with sliding scale insulin at home. Blood sugars have been somewhat elevated throughout the hospital stay. Despite reported nausea, patient is taking a full diet. Will increase to 60 units of Lantus. 3. Obesity/anxiety/depression/hypertension/tobacco abuse Complicates care, management, recovery and prognosis. Reinitiated patient's baseline antihypertensive medications. Patient will be offered a nicotine patch. Code Visit Inpatient E&M: 16832 Subs Hosp L2
[2017-11-06 06:55] LABS: Bedside Glucose 207 mg/dL (70-110)
--- NOTE | 2017-11-06 08:06 | PCM.PROGNOTE ---
Subjective: Chief complaint: Follow-up after admission for acute alcohol withdrawal. Patient seen and examined. No acute events overnight. Today, he felt better, less anxious and shaky. All over, he is improving. His vital signs are stable. - Physical Exam General: Alert, Oriented x3, Cooperative, No apparent distress HEENT: Atraumatic, PERRLA, EOMI, Normocephalic Oral: Moist Mucosa, No Gingival or Mucosal Lesions/ Ulcerations Neck: Supple, No JVD, Negative Carotid Bruits, Trachea Midline, Thyroid Normal Size and Texture Lungs: Clear to auscultation, Normal air movement, No rhonchi, No wheeze, No rales Cardiovascular: Regular rate, Regular Rhythm, Normal S1, Normal S2, No murmurs Abdomen: Bowel Sounds Present, Soft, Non Tender, Non-Distended, No Hepato-splenomegaly Extremities: No clubbing, No cyanosis, No edema Skin: No rashes, No breakdown Lymphatic: No Cervical, Supraclavicular, or Inguinal Adenopathy Neurological: Cranial nerves II-XII grossly intact, Neuro grossly intact Psych/Mental Status: Normal Affect, Appropriate, Alert and oriented to time, place, person, mood and affect Vital Signs Temp Pulse Resp BP Pulse Ox 96.6 F L 94 23 H 121/84 H 95 11/06/17 06:00 11/06/17 07:00 11/06/17 06:00 11/06/17 07:00 11/06/17 07:00 Oxygen Flow Rate (L/min) 2 Oxygen Delivery Method Nasal Cannula Weight: 212 lb 8.41 oz Body Mass Index (BMI) 30.0 Intake and Output for Last 24 Hours 11/04/17 11/05/17 11/06/17 23:59 23:59 23:59 Intake Total 1621 / 1621 1397 / 1397 Output Total 1350 / 1350 3350 / 3350 Balance 271 / 271 -1953 / -1952 Laboratory Tests Past 24 Hrs 11/06/17 11/06/17 05:05 05:05 WBC 12.2 H RBC 5.06 Hgb 15.7 Hct 44.2 MCV 87.4 MCH 31.0 MCHC 35.5 RDW 15.2 H RDW Differential 48.2 H Plt Count 478 H MPV 9.6 Immature Gran % (Auto) 0.700 Neut % (Auto) 59.0 Lymph % (Auto) 28.0 [place] % (Auto) 8.8 Eos % (Auto) 2.8 Baso % (Auto) 0.7 Absolute Neuts (auto) 7.2 Absolute Lymphs (auto) 3.42 Total Counted Not Reportable Sodium 135 L Potassium 4.0 Chloride 97 L Carbon Dioxide 27.0 Anion Gap 11 BUN 18 Creatinine 0.74 Estim Creat Clear Calc 132.85 Est GFR (MDRD) Af Amer 147 Est GFR (MDRD) Non-Af 122 BUN/Creatinine Ratio 24.5 H Glucose 213 H Calcium 9.0 Phosphorus 4.7 Magnesium 1.9 POC Glucose 11/06/17 11/05/17 11/05/17 06:52 21:52 17:22 POC Glucose 207 H 255 H 302 H 11/05/17 11:23 POC Glucose 296 H Medical Necessity - Tobacco Use Smoking Status: Current every day smoker Tobacco Use: Cigarettes Assessment/Plan All Active Problems Alcohol withdrawal (Acute) This is a 47 years old male patient presented to the medicine because of anxiety, restlessness, tremors, abdominal cramps and diarrhea as well as nausea and vomiting due to alcohol withdrawal and he requested to be admitted for stabilization. #1 acute alcohol withdrawal: He is on IV Ativan protocol, as needed Librium, thiamine and folic acid supplement, on Librium, Bentyl, Vistaril and methocarbamol. Today, he reported improvement of his symptoms, feeling less anxious and less restless. His vital signs are stable. Urine drug screen was positive for barbiturates. Plan: Transfer to [place] [id number] with telemetry. #2 alcohol abuse/history of alcohol withdrawal seizure: Plan as above, continue same treatment, close monitoring, seizure precautions. #3 type 2 diabetes mellitus: Uncontrolled, hemoglobin A1c was 10.9 on February,. Blood sugar has been in the range of 200-300. Continue ADA diet, Accu-Cheks, insulin sliding scale, Lantus insulin. Dose of Lantus increased to 60 units daily, plan to monitor. #4 hypertension: Blood pressure under better control, continue Norvasc, continue IV labetalol as needed. #5 Anxiety/depression: Continue Seroquel. #6 DVT prophylaxis: Subcu Lovenox. This note was generated with [employer] software. It may contain incorrect words, spelling, and punctuation that were not noted in checking the note before signing. Code Visit Inpatient E&M: 24988 Subs Hosp L2
--- NOTE | 2017-11-06 08:09 | PN_ITS ---
Subjective: Chief complaint: Follow-up after admission for acute alcohol withdrawal. Patient seen and examined. No acute events overnight. Today, he felt better, less anxious and shaky. All over, he is improving. His vital signs are stable. - Physical Exam General: Alert, Oriented x3, Cooperative, No apparent distress HEENT: Atraumatic, PERRLA, EOMI, Normocephalic Oral: Moist Mucosa, No Gingival or Mucosal Lesions/ Ulcerations Neck: Supple, No JVD, Negative Carotid Bruits, Trachea Midline, Thyroid Normal Size and Texture Lungs: Clear to auscultation, Normal air movement, No rhonchi, No wheeze, No rales Cardiovascular: Regular rate, Regular Rhythm, Normal S1, Normal S2, No murmurs Abdomen: Bowel Sounds Present, Soft, Non Tender, Non-Distended, No Hepato- splenomegaly Extremities: No clubbing, No cyanosis, No edema Skin: No rashes, No breakdown Lymphatic: No Cervical, Supraclavicular, or Inguinal Adenopathy Neurological: Cranial nerves II-XII grossly intact, Neuro grossly intact Psych/Mental Status: Normal Affect, Appropriate, Alert and oriented to time, place, person, mood and affect Vital Signs Temp Pulse Resp BP Pulse Ox 96.6 F L 94 23 H 121/84 H 95 11/06/17 06:00 11/06/17 07:00 11/06/17 06:00 11/06/17 07:00 11/06/17 07:00 Oxygen Flow Rate (L/min) 2 Oxygen Delivery Method Nasal Cannula Weight: 212 lb 8.41 oz Body Mass Index (BMI) 30.0 Intake and Output for Last 24 Hours 11/04/17 11/05/17 11/06/17 23:59 23:59 23:59 Intake Total 1621 / 1621 1397 / 1397 Output Total 1350 / 1350 3350 / 3350 Balance 271 / 271 -1953 / -1952 Laboratory Tests Past 24 Hrs 11/06/17 11/06/17 05:05 05:05 WBC 12.2 H RBC 5.06 Hgb 15.7 Hct 44.2 MCV 87.4 MCH 31.0 MCHC 35.5 RDW 15.2 H RDW Differential 48.2 H Plt Count 478 H MPV 9.6 Immature Gran % (Auto) 0.700 Neut % (Auto) 59.0 Lymph % (Auto) 28.0 [place] % (Auto) 8.8 Eos % (Auto) 2.8 Baso % (Auto) 0.7 Absolute Neuts (auto) 7.2 Absolute Lymphs (auto) 3.42 Total Counted Not Reportable Sodium 135 L Potassium 4.0 Chloride 97 L Carbon Dioxide 27.0 Anion Gap 11 BUN 18 Creatinine 0.74 Estim Creat Clear Calc 132.85 Est GFR (MDRD) Af Amer 147 Est GFR (MDRD) Non-Af 122 BUN/Creatinine Ratio 24.5 H Glucose 213 H Calcium 9.0 Phosphorus 4.7 Magnesium 1.9 POC Glucose 11/06/17 11/05/17 11/05/17 06:52 21:52 17:22 POC Glucose 207 H 255 H 302 H 11/05/17 11:23 POC Glucose 296 H Medical Necessity - Tobacco Use Smoking Status: Current every day smoker Tobacco Use: Cigarettes Assessment/Plan All Active Problems Alcohol withdrawal (Acute) This is a 47 years old male patient presented to the medicine because of anxiety , restlessness, tremors, abdominal cramps and diarrhea as well as nausea and vomiting due to alcohol withdrawal and he requested to be admitted for stabilization. #1 acute alcohol withdrawal: He is on IV Ativan protocol, as needed Librium, thiamine and folic acid supplement, on Librium, Bentyl, Vistaril and methocarbamol. Today, he reported improvement of his symptoms, feeling less anxious and less restless. His vital signs are stable. Urine drug screen was positive for barbiturates. Plan: Transfer to [place] [id number] with telemetry. #2 alcohol abuse/history of alcohol withdrawal seizure: Plan as above, continue same treatment, close monitoring, seizure precautions. #3 type 2 diabetes mellitus: Uncontrolled, hemoglobin A1c was 10.9 on February,. Blood sugar has been in the range of 200-300. Continue ADA diet, Accu- Cheks, insulin sliding scale, Lantus insulin. Dose of Lantus increased to 60 units daily, plan to monitor. #4 hypertension: Blood pressure under better control, continue Norvasc, continue IV labetalol as needed. #5 Anxiety/depression: Continue Seroquel. #6 DVT prophylaxis: Subcu Lovenox. This note was generated with [employer] software. It may contain incorrect words, spelling, and punctuation that were not noted in checking the note before signing. Code Visit Inpatient E&M: 78952 Subs Hosp L2
[2017-11-06] MEDS: hydroCHLOROthiazide 25 MG Tablet PO (08:18)
[2017-11-06] MEDS: amLODIPine 5 MG Tablet PO (08:18)
[2017-11-06] MEDS: Enoxaparin 40 MG/0.4 ML Syringe SC (08:18)
[2017-11-06] MEDS: Multivitamins,Ther W-Minerals Tablet 1 TABLET PO (08:18)
[2017-11-06] MEDS: Lisinopril 20 MG Tablet PO (08:18)
[2017-11-06] MEDS: Insulin Lispro 100 UNIT/ML INSULN.PEN SC ×4 (08:19→21:32)
[2017-11-06] MEDS: 0.9% NaCl IVPB Med Flush (250 mL) 15 ML IV (11:23)
[2017-11-06] MEDS: hydrOXYzine PAM 25 MG Capsule 50 MG PO (11:33)
[2017-11-06 12:15] LABS: Bedside Glucose 297 mg/dL (70-110)
[2017-11-06] MEDS: Glucerna Shake 120 ML LIQUID PO ×3 (14:29→21:34)
[2017-11-06] MEDS: LORazepam 1 MG Tablet 2 MG PO ×2 (14:38→18:12)
[2017-11-06 16:31] LABS: Bedside Glucose 320 mg/dL (70-110)
[2017-11-06] MEDS: Methocarbamol 750 MG Tablet PO (20:23)
[2017-11-06 21:25] LABS: Bedside Glucose 195 mg/dL (70-110)
[2017-11-06] MEDS: Acetaminophen 325 MG Tablet 650 MG PO (23:14)
[2017-11-07] VITALS (16 sets, daily range): BP systolic 97–121; BP diastolic 65–84; PULSE 43–93; RESP 16–24; TEMP 36.1–37.2; O2SAT 92–100
--- NOTE | 2017-11-07 01:06 | NURSING ---
applied O2 at 2L nc d/t sat 92% and has hx of sleep apnea. Does not have cpap here
[2017-11-07] MEDS: LORazepam 1 MG Tablet 2 MG PO (05:05)
[2017-11-07] MEDS: Acetaminophen 325 MG Tablet 650 MG PO (05:13)
[2017-11-07 06:50] LABS: Bedside Glucose 117 mg/dL (70-110)
--- NOTE | 2017-11-07 08:27 | PCM.PROGNOTE ---
Subjective: Chief complaint: Follow-up after admission for acute alcohol withdrawal. Patient seen and examined. No acute events overnight. He mentioned that he is getting better every day, having less anxiety and restlessness. His vital signs are stable, less tachycardic and blood pressure under better control. - Physical Exam General: Alert, Oriented x3, Cooperative, No apparent distress HEENT: Atraumatic, PERRLA, EOMI, Normocephalic Oral: Moist Mucosa, No Gingival or Mucosal Lesions/ Ulcerations Neck: Supple, No JVD, Negative Carotid Bruits, Trachea Midline, Thyroid Normal Size and Texture Lungs: Clear to auscultation, No rhonchi, No wheeze, No rales Cardiovascular: Regular rate, Regular Rhythm, Normal S1, Normal S2, PMI Normal Abdomen: Bowel Sounds Present, Soft, Non Tender, Non-Distended, No Hepato-splenomegaly Extremities: No clubbing, No cyanosis, No edema Skin: No rashes, No breakdown Lymphatic: No Cervical, Supraclavicular, or Inguinal Adenopathy Neurological: Cranial nerves II-XII grossly intact, Motor Exam 5/5 strength throughout Psych/Mental Status: Normal Affect, Appropriate Vital Signs Temp Pulse Resp BP Pulse Ox 97.7 F L 70 16 97/68 94 11/07/17 06:43 11/07/17 07:30 11/07/17 06:43 11/07/17 06:43 11/07/17 07:37 Oxygen Flow Rate (L/min) 2 Oxygen Delivery Method Nasal Cannula Weight: 216 lb 14.958 oz Body Mass Index (BMI) 30.0 Intake and Output for Last 24 Hours 11/05/17 11/06/17 11/07/17 23:59 23:59 23:59 Intake Total 1397 / 1397 220 / 220 1250 / 1250 Output Total 3350 / 3350 400 / 400 Balance -1953 / -1953 -180 / -180 1250 / 1250 POC Glucose 11/07/17 11/06/17 11/06/17 06:41 21:19 16:28 POC Glucose 117 H 195 H 320 H 11/06/17 11:43 POC Glucose 297 H Medical Necessity - Tobacco Use Smoking Status: Current every day smoker Tobacco Use: Cigarettes Assessment/Plan All Active Problems Alcohol withdrawal (Acute) This is a 47 years old male patient presented to the medicine because of anxiety, restlessness, tremors, abdominal cramps and diarrhea as well as nausea and vomiting due to alcohol withdrawal and he requested to be admitted for stabilization. #1 acute alcohol withdrawal: He is on IV Ativan protocol, as needed Librium, thiamine and folic acid supplement, on Librium, Bentyl, Vistaril and methocarbamol. His symptoms continued to improve every day. His vital signs are stable. Urine drug screen was positive for barbiturates. Because of his alcohol abuse and heavy drinking, recurrent admissions for alcohol withdrawal and delirium tremens as well as history of withdrawal seizure, I think patient should stay 1 more day and probably can avoid relapse. Plan: Continue same treatment, anticipate discharge home tomorrow. #2 alcohol abuse/history of alcohol withdrawal seizure: Plan as above, continue same treatment, close monitoring, seizure precautions. #3 type 2 diabetes mellitus: Uncontrolled, hemoglobin A1c was 10.9 on February,. Blood sugar has been in the range of 200-300. Continue ADA diet, Accu-Cheks, insulin sliding scale, Lantus insulin. Dose of Lantus increased to 60 units daily, plan to monitor. #4 hypertension: Blood pressure under better control, continue Norvasc, continue IV labetalol as needed. #5 Anxiety/depression: Continue Seroquel. #6 DVT prophylaxis: Subcu Lovenox. This note was generated with [employer] dictation software. It may contain incorrect words, spelling, and punctuation that were not noted in checking the note before signing. Code Visit Inpatient E&M: 87198 Subs Hosp L2
[2017-11-07] MEDS: 0.9% NaCl Peripheral Flush Adult/Peds IV ×5 (10:05→20:23)
[2017-11-07] MEDS: Glucerna Shake 120 ML LIQUID PO ×4 (10:06→22:15)
[2017-11-07] MEDS: amLODIPine 5 MG Tablet PO (10:12)
[2017-11-07] MEDS: hydroCHLOROthiazide 25 MG Tablet PO (10:12)
[2017-11-07] MEDS: Lisinopril 20 MG Tablet PO (10:12)
[2017-11-07] MEDS: Methocarbamol 750 MG Tablet PO ×2 (10:12→22:20)
[2017-11-07] MEDS: Multivitamins,Ther W-Minerals Tablet 1 TABLET PO (10:12)
[2017-11-07] MEDS: Enoxaparin 40 MG/0.4 ML Syringe SC (10:13)
[2017-11-07] MEDS: Dicyclomine 10 MG Capsule 20 MG PO ×2 (10:25→16:24)
[2017-11-07] MEDS: LORazepam 2 MG/ML Syringe IV ×4 (10:26→20:22)
[2017-11-07] MEDS: Insulin Lispro 100 UNIT/ML INSULN.PEN SC ×3 (11:37→22:14)
[2017-11-07 12:16] LABS: Bedside Glucose 249 mg/dL (70-110)
--- NOTE | 2017-11-07 14:15 | CHAPLAIN ---
Type of Pastoral Visit _x__ Initial Visit ___ Follow-up Visit ___ On-call Visit ___ General Patient Visit ___ Spiritual Assessment ___ Family Conference ___ Bereavement ___ Rapid Response ___ Code Blue ___ Other (describe below) Pastoral Care Referral From _x__ Patient ___ Family ___ Nurse ___ Physician ___ Child Specialist ___ Instructor Technical Training ___ Other (describe below) Sacrament/Intervention _x__ Active listening ___ Anointing ___ Bahai ___ Bereavement ___ Communion _x__ Sarina exploration ___ _x__ Life review _x__ Prayer ___ Reconciliation ___ Sacrament of Sick _x__ Supportive presence ___ Wedding ___ Other (describe below) Pastoral Comments Patient has good understanding of his problem and what can be effective for him but admits to needing help in follow through; pt describes some life history, spiritual perspective, and where he gets his support; pt seeks spiritual support and prayer; pt asks about finding a local holiness in [place] rather than driving out of [facility] for his former holiness
[2017-11-07 16:36] LABS: Bedside Glucose 268 mg/dL (70-110)
[2017-11-07] MEDS: Famotidine 20 MG Tablet PO (22:14)
[2017-11-07 22:21] LABS: Bedside Glucose 212 mg/dL (70-110)
[2017-11-08] VITALS (8 sets, daily range): BP systolic 103–117; BP diastolic 75–87; PULSE 67–82; RESP 16–18; TEMP 36.2–36.7; O2SAT 95–98
[2017-11-08] MEDS: LORazepam 2 MG/ML Syringe IV (02:33)
[2017-11-08] MEDS: 0.9% NaCl Peripheral Flush Adult/Peds IV (02:33)
[2017-11-08 07:15] LABS: Bedside Glucose 146 mg/dL (70-110)
[2017-11-08] MEDS: LORazepam 1 MG Tablet 2 MG PO (07:24)
[2017-11-08] MEDS: hydroCHLOROthiazide 25 MG Tablet PO (08:20)
[2017-11-08] MEDS: Multivitamins,Ther W-Minerals Tablet 1 TABLET PO (08:20)
[2017-11-08] MEDS: Thiamine Hydrochloride 100 MG Tablet PO (08:20)
[2017-11-08] MEDS: Folic Acid 1 MG Tablet PO (08:20)
[2017-11-08] MEDS: Famotidine 20 MG Tablet PO (08:21)
[2017-11-08] MEDS: amLODIPine 5 MG Tablet PO (08:21)
[2017-11-08] MEDS: Lisinopril 20 MG Tablet PO (08:21)
[2017-11-08] MEDS: Glucerna Shake 120 ML LIQUID PO (08:24)
--- NOTE | 2017-11-08 09:37 | PCM.DC ---
You will use the following diet at home:: Calorie/Carbohydrate Controlled (specify 1200, 1400, etc) - 1800 rocío., Cardiac Your food should be the consistency of: Regular Discharge Activity: Return to Normal Activity Weight Bearing Status: Full weight bearing Call your doctor if you observe: Fever of 101 or Higher, Shortness of breath, Dizziness, Fainting spells, Chest pain, Increased palpitations (irregular heartbeat), Uncontrolled pain Instructions: Diabetes and Alcohol Consumption, Alcoholism: How to be Part of the Solution, Alcohol Withdrawal: What to Expect Allergies/Adverse Reactions: Allergies bupropion HCl [From Wellbutrin] Allergy (Verified 11/04/17 09:47) Other seizures Medications to take at Discharge Amlodipine [Norvasc] 5 mg PO DAILY 09/05/13 Insulin Regular, Human [Humulin R] See Protocol SC TID 09/05/13 Lisinopril/Hydrochlorothiazide [Zestoretic 20/25 Tablet] 1 tablet PO DAILY 09/05/13 Omeprazole [Prilosec] 20 mg PO DAILY 09/05/13 Methocarbamol 250 mg PO DAILY 04/16/17 Meloxicam 15 mg PO BID 10/17/17 Insulin Glargine,Hum.rec.anlog [Lantus] 50 unit SQ QHS 11/04/17 Seroquel 50 mg PO QHS PRN 11/04/17 Chlordiazepoxide [Librium] 10 mg PO TID PRN PRN #30 cap 11/08/17 Folic Acid 1 mg PO DAILY@0800 #30 tab 11/08/17 Thiamine Hydrochloride [Vitamin B1] 100 mg PO DAILYCM #30 tab 11/08/17 The following prescriptions were given: Chlordiazepoxide [Librium] 10 mg PO TID PRN PRN #30 cap PRN Reason: Alcohol Withdrawal Folic Acid 1 mg PO DAILY@0800 #30 tab Thiamine Hydrochloride [Vitamin B1] 100 mg PO DAILYCM #30 tab Primary Care Physician: Jose Enrique Shoemaker MD [Primary Care Provider] - Please follow up with your Primary Care Physician in: 1-2 weeks. Test Results: Test results from this visit will be discussed in further detail at your follow-up appointment, if applicable.
--- NOTE | 2017-11-08 12:45 | PCM.DC.SUM ---
Discharge Date and Diagnosis Date of Admission: 11/04/17 Date of Discharge: 11/08/17 - Primary Discharge Diagnosis #1 acute alcohol withdrawal. #2 uncontrolled type 2 diabetes mellitus. - Secondary Discharge Diagnosis Chronic Problems Alcoholic hepatitis (Chronic) Alcohol-induced seizure (Chronic) Anxiety and depression (Chronic) Obesity (BMI 30.0-34.9) (Chronic) Chronic pain syndrome (Chronic) Diabetes mellitus, type II (Chronic) HTN (hypertension) (Chronic) HLD (hyperlipidemia) (Chronic) Alcohol abuse (Chronic) Hospital Course and Treatment Dr. Ross, critical care. Operations: None Procedures: None Summary of Care Provided: Patient seen and examined on the day of discharge and appeared to be stable to be discharged home. He remained comfortable, resting and able to sleep overnight. He is less anxious and restless. His vital signs are stable. - Physical Exam General: Alert, Oriented x3, Cooperative, No apparent distress. HEENT: Atraumatic, PERRLA, EOMI. Neck: Supple, No JVD, Negative Carotid Bruits, Trachea Midline, Thyroid Normal. Lungs: Clear to auscultation, Normal air movement, No rhonchi, No wheeze, No rales. Cardiovascular: Regular rate, Regular Rhythm, Normal S1, Normal S2, PMI Normal. Abdomen: Bowel Sounds Present, Soft, Non Tender, Non-Distended, No Hepato-splenomegaly. Extremities: No clubbing, No cyanosis, No edema Skin: No rashes, No breakdown Neurological: Neuro grossly intact Vital Signs are stable. Hospital course: The patient is a 47 year old M with past medical history including alcohol abuse, recurrent alcohol withdrawal with recurrent admissions as well as alcohol withdrawal seizure admitted for symptoms of anxiety, restlessness, tremors, abdominal cramps and diarrhea secondary to acute alcohol withdrawal. Initially, patient was admitted to intensive care unit for treatment of acute alcohol withdrawal because of history of withdrawal seizure as well as need for intubation and sedation for alcohol withdrawal in the past. He was treated with Ativan as needed, Librium as needed, folic acid and thiamine supplement as well as multivitamins, methocarbamol, Bentyl and Vistaril. His routine blood work was unremarkable. His LFT was normal. His urine drug screen was positive for barbiturates. His EKG revealed sinus tachycardia, no acute changes. Blood alcohol level was less than 3. Patient remained in the intensive care unit for 2 days because of significant restlessness, anxiety and tremors as well as tachycardia and hypertension. With treatment, patient symptoms improved and he was transferred to the [facility] floor. He was continued on above-mentioned treatment and his symptoms continue to improve. His vital signs have been stable and normal tachycardia hypertension for the last 24 hours. Anxiety, restlessness and tremors significantly improved. He does have history of type 2 diabetes mellitus and his blood sugar has been not well controlled. At home, patient has been on Lantus 50 units nightly as well as insulin sliding scale. During this admission, blood sugar has been in the range of 200-300. Dose of Lantus increased to 60 units nightly. Patient's discharged home in a stable medical condition, discharged on thiamine and folic acid supplement as well as multivitamin, discharged on Librium as needed, dose of Lantus increased to 60 units nightly, continued his other chronic home medication without any changes, recommended follow-up with PCP in 1-2 weeks. Discharge Activity: Return to Normal Activity Weight Bearing Status: Full weight bearing Call your doctor if you observe: Fever of 101 or Higher, Shortness of breath, Dizziness, Fainting spells, Chest pain, Increased palpitations (irregular heartbeat), Uncontrolled pain Home Medications: Medications to take at Discharge Amlodipine [Norvasc] 5 mg PO DAILY 09/05/13 Insulin Regular, Human [Humulin R] See Protocol SC TID 09/05/13 Lisinopril/Hydrochlorothiazide [Zestoretic 20/25 Tablet] 1 tablet PO DAILY 09/05/13 Omeprazole [Prilosec] 20 mg PO DAILY 09/05/13 Methocarbamol 250 mg PO DAILY 04/16/17 Meloxicam 15 mg PO BID 10/17/17 Insulin Glargine,Hum.rec.anlog [Lantus] 50 unit SQ QHS 11/04/17 Seroquel 50 mg PO QHS PRN 11/04/17 Chlordiazepoxide [Librium] 10 mg PO TID PRN PRN #30 cap 11/08/17 Folic Acid 1 mg PO DAILY@0800 #30 tab 11/08/17 Thiamine Hydrochloride [Vitamin B1] 100 mg PO DAILYCM #30 tab 11/08/17 Following Prescrptions Were Given to Patient: Chlordiazepoxide [Librium] 10 mg PO TID PRN PRN #30 cap PRN Reason: Alcohol Withdrawal Folic Acid 1 mg PO DAILY@0800 #30 tab Thiamine Hydrochloride [Vitamin B1] 100 mg PO DAILYCM #30 tab Primary Care Physician: Jose Enrique Shoemaker MD [Primary Care Provider] - Please follow up with your Primary Care Physician in: 1-2 weeks. Patient Instructions: Diabetes and Alcohol Consumption, Alcoholism: How to be Part of the Solution, Alcohol Withdrawal: What to Expect Disposition: Home Minutes spent on discharge:: 32 Patient Condition:: Stable Medical Necessity - Tobacco Use Smoking Status: Current every day smoker Tobacco Use: Cigarettes Meaningful Use Info Meaningful Use Diagnoses (Choose all that apply): None applicable Code Visit Inpatient E&M: 92276 Disch Hosp
== END 2017-11-08 09:58 | disposition home or self-care (01) | DRG 434 ==
LOC: ED 11:03 → ICU 15:48 → MS3 11-07 04:58 → ICU 11-07 11:41 → MS3 11-07 11:41
PROVIDERS: Internal Medicine Critical Care Medicine; Admitting Provider Hospitalist; Emergency Provider Emergency Medicine; Family Provider Family Medicine; PCP Family Medicine; Visit Provider Hospitalist
DX: F10.239 Alcohol dependence with withdrawal, unspecified (principal); E11.65 Type 2 diabetes mellitus with hyperglycemia; G89.4 Chronic pain syndrome; E78.5 Hyperlipidemia, unspecified; I10 Essential (primary) hypertension; E66.9 Obesity, unspecified; Z68.30 Body mass index [BMI] 30.0-30.9, adult; F41.9 Anxiety disorder, unspecified; F32.9 Major depressive disorder, single episode, unspecified; Z79.4 Long term (current) use of insulin; F17.210 Nicotine dependence, cigarettes, uncomplicated
CPT/HCPCS: 80048; 80053; 80307; 80320; 82962; 83735; 84100; 85025; 87641; 93005; 99283; 99406; J7030; J7050; A4216; G0480; J3490

== ENCOUNTER 2017-12-06 18:13 | Inpatient (IN) | payer MEDICAID, SELFPAY ==
[2017-12-06] VITALS (7 sets, daily range): BP systolic 132–149; BP diastolic 82–105; PULSE 100–131; RESP 12–19; TEMP 37.2–37.3; O2SAT 94–98; BMI 31.5; BMI 29.9
[2017-12-06] MEDS: 0.9% Normal Saline 1,000 ML 150 ML IV (19:38)
[2017-12-06] MEDS: 0.9% Normal Saline 1,000 ML 1000 ML IV (19:38)
[2017-12-06] MEDS: LORazepam 2 MG/ML Syringe IV ×2 (19:38→23:55)
[2017-12-06 20:25] LABS: Absolute Lymphocyte Count 2.07 X10^3/ul (0.83-4.51); Absolute Neutrophil Count 4.4 X10^3/uL (2.0-7.7); Basophil# 0.04 X10^3/uL; Basophil% 0.5 % (0-1); Hemoglobin 15.4 g/dl (13.0-16.5); Lymphocyte # 2.07 X10^3/ul (4.0); Lymphocyte % 28.2 % (19-41); Mean Corp Hgb Conc 35.8 g/gl (32-36); Mean Corpuscular Hgb 31.2 pg (27.0-32.0); Mean Corpuscular Volume 87.2 fL (80-94); Mean Platelet Vol. 9.8 fl (6.2-12.0); Monocyte# 0.82 X10^3/uL; Monocyte% 11.2 % (0-10); Neutrophil # 4.42 X10^3/uL (2.7-7.7); Neutrophil % 60.1 % (47-70); Platelet Count 228 K/mm3 (150-450); RBC Distribution Width CV 14.1 % (11.6-14.6); RBC Distribution Width SD 45.1 fl (35.1-43.9); Red Blood Count 4.93 M/mm3 (4.6-6.2); White Blood Count 7.4 K/mm3 (4.4-11.0)
[2017-12-06 20:28] LABS: POSITIVE COUNT NO; POSITIVE DIFFERENTIAL NO; POSITIVE MORPHOLOGY NO
[2017-12-06 20:33] LABS: Partial Thromboplast Time 28.3 Seconds (24.1-36.2); Prothrombin Time (Protime)PT. 13.6 SECONDS (11.7-14.9)
[2017-12-06 20:38] LABS: AST(SGOT) 58 U/L (15-37); Alanine Aminotransfer ALT/SGPT 48 U/L (16-61); Alkaline Phosphatase 143 U/L (45-117); Anion Gap 19 (5-15); BUN 9 mg/dL (7-18); Bilirubin, Direct 0.29 mg/dL (0.00-0.30); Calcium,Total 8.2 mg/dL (8.5-10.1); Chloride 90 mmol/L (98-107); EST Glomerular Filtration Rate 86 mL/min (>60); Est Glom Filt Rate - Afr Amer 104 mL/min (>60); Globulin 4.5 g/dL (2.2-4.2); Glucose 332 mg/dL (74-106); Lipase 1040 U/L (73-393); Potassium 3.6 mmol/L (3.5-5.1); Protein, Total 8.5 g/dL (6.4-8.2); Sodium Level 128 mmol/L (136-145)
[2017-12-06 21:03] LABS: Amphetamine Urine VISTA NEGATIVE (<1000 ng/mL); Barbiturate Urine VISTA NEGATIVE (< 200 ng/mL); Benzodiazepine Urine VISTA POSITIVE (< 200 ng/mL); Cocaine Urine VISTA NEGATIVE (< 300 ng/mL); Ecstacy Urine VISTA NEGATIVE (< 500 ng/mL); Methadone Urine VISTA NEGATIVE (< 300 ng/mL); PCP Urine VISTA NEGATIVE (< 25 ng/mL); THC Urine VISTA NEGATIVE (< 50 ng/mL); Vista UDS pH Range 6
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
[2017-12-06] MEDS: LORazepam 2 MG/ML Syringe 1 MG IV (22:02)
[2017-12-06] MEDS: Lactated Ringers 1,000 ML 250 ML IV (23:30)
[2017-12-06 23:35] LABS: Bedside Glucose 264 mg/dL (70-110)
[2017-12-06] MEDS: 0.9% NaCl Peripheral Flush Adult/Peds IV (23:55)
[2017-12-07] VITALS (30 sets, daily range): BP systolic 117–173; BP diastolic 69–106; PULSE 50–109; RESP 15–29; TEMP 36.4–37.3; O2SAT 90–98
[2017-12-07] MEDS: Insulin Lispro 100 UNIT/ML INSULN.PEN SQ ×5 (00:08→23:28)
[2017-12-07] MEDS: LORazepam 2 MG/ML Syringe IV ×6 (01:46→23:23)
[2017-12-07] MEDS: Lactated Ringers 1,000 ML 250 ML IV ×2 (03:29→07:31)
[2017-12-07 04:13] LABS: Hematocrit 36.6 % (40-54); Mean Corp Hgb Conc 35.5 g/gl (32-36); Mean Corpuscular Hgb 31.2 pg (27.0-32.0); Mean Corpuscular Volume 87.8 fL (80-94); Mean Platelet Vol. 9.3 fl (6.2-12.0); Platelet Count 170 K/mm3 (150-450); RBC Distribution Width CV 14.3 % (11.6-14.6); RBC Distribution Width SD 45.8 fl (35.1-43.9); Red Blood Count 4.17 M/mm3 (4.6-6.2); White Blood Count 8.5 K/mm3 (4.4-11.0)
[2017-12-07 04:14] LABS: Scan Indicated on CBC? Y/N NO
[2017-12-07 04:21] LABS: Anion Gap 15 (5-15); BUN 7 mg/dL (7-18); BUN/Creat Ratio 11.1 RATIO (10-20); Calcium,Total 7.7 mg/dL (8.5-10.1); Chloride 98 mmol/L (98-107); Creatinine, Serum 0.63 mg/dL (0.70-1.30); EST Glomerular Filtration Rate 146 mL/min (>60); Est Glom Filt Rate - Afr Amer 176 mL/min (>60); Estimated Creatinine Clearance 156.04 ml/min; Glucose 170 mg/dL (74-106); Potassium 3.3 mmol/L (3.5-5.1); Sodium Level 138 mmol/L (136-145)
[2017-12-07 04:49] LABS: Magnesium 1.9 mg/dL (1.6-2.6)
[2017-12-07] MEDS: Heparin Injection (Vial) 5,000 UNIT/ML VIAL 5000 UNIT SC ×3 (05:12→21:59)
[2017-12-07 05:31] LABS: Bedside Glucose 157 mg/dL (70-110)
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
[2017-12-07 07:26] LABS: Lipase 496 U/L (73-393)
--- NOTE | 2017-12-07 07:34 | PCM.PN.HOSP ---
Patient Problems: Active and Suspected Problems Alcohol intoxication (Acute) Pancreatitis (Acute) Subjective: 47-year-old gentleman with history of alcohol dependence who presented with abdominal pain. Patient was found to be intoxicated with alcohol levels of 465. He was also found to have acute pancreatitis admitted to the intensive care unit for subsequent management Objective: GENERAL: appears restless HEENT: Clear conjunctiva, moist oral mucosa NECK; supple, normal thyroid, no distended JVD. CHEST: Clear to auscultation bilaterally, HEART: Regular S1 S2, tachycardic ABDOMEN: soft, non-tender, normoactive bowel sounds, RECTAL: deferred EXTREMITIES: No edema, no clubbing, no cyanosis. 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 SKIN: No Rash Vitals/I&O's: Vital Signs Temp Pulse Resp BP Pulse Ox 99.1 F 98 20 H 132/88 H 95 12/07/17 00:00 12/07/17 06:00 12/07/17 06:00 12/07/17 06:00 12/07/17 06:00 Oxygen Delivery Method Room Air Weight: 98.1 kg Body Mass Index (BMI) 29.9 Intake and Output for Last 24 Hours 12/05/17 12/06/17 12/07/17 23:59 23:59 23:59 Intake Total 2125 / 2125 1391.3 / 1391.3 Output Total 250 / 250 Balance 2125 / 2125 1141.3 / 1141.3 Laboratory Results 12/06/17 23:27: POC Glucose 264 H 12/07/17 04:00: Sodium 138, Potassium 3.3 L, Chloride 98, Carbon Dioxide 25.0, Anion Gap 15, BUN 7, Creatinine 0.63 L, Estim Creat Clear Calc 156.04, Est GFR (MDRD) Af Amer 176, Est GFR (MDRD) Non-Af 146, BUN/Creatinine Ratio 11.1, Glucose 170 H, Calcium 7.7 L 12/07/17 04:00: WBC 8.5, RBC 4.17 L, Hgb 13.0, Hct 36.6 L, MCV 87.8, MCH 31.2, MCHC 35.5, RDW 14.3, RDW Differential 45.8 H, Plt Count 170, MPV 9.3 12/07/17 04:00: Magnesium 1.9 12/07/17 04:00: Lipase 496 H 12/07/17 05:17: POC Glucose 157 H Current Medications Amlodipine Besylate (Norvasc) 5 mg PO DAILY [facility] Bisacodyl (Dulcolax) 5 mg PO DAILY PRN PRN PRN Reason: Constipation Dextrose (D50w Syringe) 0 gm IV X1 PRN; Protocol PRN Reason: Hypoglycemia Fluoxetine HCl (Prozac) 60 mg PO DAILY [facility] Folic Acid (Folic Acid) 1 mg PO DAILYCM [facility] Glucagon () 1 mg IM .X1 PRN PRN Reason: Hypoglycemia Heparin Sodium (Porcine) (Heparin Na) 5,000 unit SC Q8 [facility] Last Admin: 12/07/17 05:12 Dose: 5,000 unit Hydrochlorothiazide (Hctz) 25 mg PO DAILY [facility] Lactated Ringer's () 1,000 mls @ 250 mls/hr IV .Q4H [facility] Stop: 12/07/17 11:21 Last Admin: 12/07/17 07:31 Dose: 250 mls/hr Thiamine HCl 200 mg/ Sodium (Chloride) 52 mls @ 200 mls/hr IV DAILY [facility] Potassium Chloride (Kcl 10meq/100ml) 10 meq in 100 mls @ 100 mls/hr IV BOLUS Q1H [facility] Stop: 12/07/17 08:59 Last Admin: 12/07/17 06:19 Dose: 100 mls/hr Insulin Glargine (Lantus (Bkc)) 50 units SC QHS [facility] Insulin Human Lispro (Humalog Kwikpen (Bkc)) 0 unit SQ Q6 [facility] PRN Reason: Protocol Last Admin: 12/07/17 05:17 Dose: 2 units Lisinopril (Zestril) 20 mg PO DAILY [facility] Lorazepam (Ativan) 2 mg PO Q2H PRN PRN; Protocol PRN Reason: CIWA score > 8 but <15 Lorazepam (Ativan) 2 mg PO UD PRN; Protocol PRN Reason: CIWA score >/=15. Lorazepam (Ativan) 2 mg IV Q2H PRN PRN; Protocol PRN Reason: CIWA score > 8 but <15 Lorazepam (Ativan) 2 mg IV UD PRN; Protocol PRN Reason: CIWA score >/=15. Last Admin: 12/07/17 01:46 Dose: 2 mg Magnesium Hydroxide (Milk Of Magnesia) 30 ml PO DAILY PRN PRN PRN Reason: Constipation Meloxicam (Mobic) 15 mg PO BID [facility] Methocarbamol (Robaxin) 250 mg PO DAILY [facility] Multivitamins (Multivitamin) 1 tablet PO DAILYCM [facility] Nicotine (Nicoderm Cq (Pbkc)) 21 mg TRANSDERM. DAILY [facility] Ondansetron HCl (Zofran) 4 mg IV Q6H PRN PRN PRN Reason: NAUSEA/VOMITING Pantoprazole Sodium (Protonix) 20 mg PO DAILY [facility] Quetiapine Fumarate (Seroquel) 50 mg PO QHS PRN PRN Reason: insomnia Sodium Chloride () 5 - 30 ml IV UD PRN PRN Reason: SALINE FLUSH Last Admin: 12/06/17 23:55 Dose: 20 ml Medical Necessity - Tobacco Use Smoking Status: Current every day smoker - Smokes cigarettes. Assessment/Plan All Active Problems Alcohol intoxication (Acute) Pancreatitis (Acute) Alcohol withdrawal (Acute) 47-year-old gentleman with history of alcohol dependence who presented with abdominal pain. Patient was found to be intoxicated with alcohol levels of 465. He was also found to have acute pancreatitis admitted to the intensive care unit for subsequent management 1. Abdominal pain secondary to alcohol induced pancreatitis admitted to intensive care unit where patient is currently being managed conservatively 2. Chronic alcohol dependence with acute intoxication upon presentation 3. Early withdrawal; be managed with Lorazepam using the CIWA protocol patient was also placed on multivitamin thiamine as well as folic acid 4. Diabetes mellitus type II: uncontrolle. Placed on long acting insulin, Accu-Cheks a.c. and at bedtime and covered with sliding scale insulin 5. Hypertension-blood pressure controlled, home medications continued with dose adjustment as needed 6. Depression with anxiety patient is on SSRI as well as Seroquel 7. Obesity with BMI of 30.2 8. DVT prophylaxis SC heparin Active Medications Amlodipine Besylate (Norvasc) 5 mg PO DAILY [facility] Bisacodyl (Dulcolax) 5 mg PO DAILY PRN PRN PRN Reason: Constipation Dextrose (D50w Syringe) 0 gm IV X1 PRN; Protocol PRN Reason: Hypoglycemia Fluoxetine HCl (Prozac) 60 mg PO DAILY [facility] Folic Acid (Folic Acid) 1 mg PO DAILYCM [facility] Glucagon () 1 mg IM .X1 PRN PRN Reason: Hypoglycemia Heparin Sodium (Porcine) (Heparin Na) 5,000 unit SC Q8 [facility] Last Admin: 12/07/17 05:12 Dose: 5,000 unit Hydrochlorothiazide (Hctz) 25 mg PO DAILY [facility] Lactated Ringer's () 1,000 mls @ 250 mls/hr IV .Q4H [facility] Stop: 12/07/17 11:21 Last Admin: 12/07/17 07:31 Dose: 250 mls/hr Thiamine HCl 200 mg/ Sodium (Chloride) 52 mls @ 200 mls/hr IV DAILY [facility] Potassium Chloride (Kcl 10meq/100ml) 10 meq in 100 mls @ 100 mls/hr IV BOLUS Q1H [facility] Stop: 12/07/17 08:59 Last Admin: 12/07/17 06:19 Dose: 100 mls/hr Insulin Glargine (Lantus (Bkc)) 50 units SC QHS [facility] Insulin Human Lispro (Humalog Kwikpen (Bkc)) 0 unit SQ Q6 [facility] PRN Reason: Protocol Last Admin: 12/07/17 05:17 Dose: 2 units Lisinopril (Zestril) 20 mg PO DAILY [facility] Lorazepam (Ativan) 2 mg PO Q2H PRN PRN; Protocol PRN Reason: CIWA score > 8 but <15 Lorazepam (Ativan) 2 mg PO UD PRN; Protocol PRN Reason: CIWA score >/=15. Lorazepam (Ativan) 2 mg IV Q2H PRN PRN; Protocol PRN Reason: CIWA score > 8 but <15 Lorazepam (Ativan) 2 mg IV UD PRN; Protocol PRN Reason: CIWA score >/=15. Last Admin: 12/07/17 01:46 Dose: 2 mg Magnesium Hydroxide (Milk Of Magnesia) 30 ml PO DAILY PRN PRN PRN Reason: Constipation Meloxicam (Mobic) 15 mg PO BID [facility] Methocarbamol (Robaxin) 250 mg PO DAILY [facility] Multivitamins ([facility]itamin) [facility] Nicotine (Nicoderm Cq (Pbkc)) 21 mg TRANSDERM. DAILY [facility] Ondansetron HCl (Zofran) 4 mg IV Q6H PRN PRN PRN Reason: NAUSEA/VOMITING Pantoprazole Sodium (Protonix) 20 mg PO DAILY [facility] Quetiapine Fumarate (Seroquel) 50 mg PO QHS PRN PRN Reason: insomnia Sodium Chloride () 5 - 30 ml IV UD PRN PRN Reason: SALINE FLUSH Last Admin: 12/06/17 23:55 Dose: 20 ml Code Visit Inpatient E&M: 05260 Subs Hosp L3
[2017-12-07 07:37] LABS: Osmolality, Serum 381 mOsm/KG (275-295)
--- NOTE | 2017-12-07 07:39 | PN_ITS ---
Patient Problems: Active and Suspected Problems Alcohol intoxication (Acute) Pancreatitis (Acute) Subjective: 47-year-old gentleman with history of alcohol dependence who presented with abdominal pain. Patient was found to be intoxicated with alcohol levels of 465. He was also found to have acute pancreatitis admitted to the intensive care unit for subsequent management Objective: GENERAL: appears restless HEENT: Clear conjunctiva, moist oral mucosa NECK; supple, normal thyroid, no distended JVD. CHEST: Clear to auscultation bilaterally, HEART: Regular S1 S2, tachycardic ABDOMEN: soft, non-tender, normoactive bowel sounds, RECTAL: deferred EXTREMITIES: No edema, no clubbing, no cyanosis. 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 SKIN: No Rash Vitals/I&O's: Vital Signs Temp Pulse Resp BP Pulse Ox 99.1 F 98 20 H 132/88 H 95 12/07/17 00:00 12/07/17 06:00 12/07/17 06:00 12/07/17 06:00 12/07/17 06:00 Oxygen Delivery Method Room Air Weight: 98.1 kg Body Mass Index (BMI) 29.9 Intake and Output for Last 24 Hours 12/05/17 12/06/17 12/07/17 23:59 23:59 23:59 Intake Total 2125 / 2125 1391.3 / 1391.3 Output Total 250 / 250 Balance 2125 / 2125 1141.3 / 1141.3 Laboratory Results 12/06/17 23:27: POC Glucose 264 H 12/07/17 04:00: Sodium 138, Potassium 3.3 L, Chloride 98, Carbon Dioxide 25.0, Anion Gap 15, BUN 7, Creatinine 0.63 L, Estim Creat Clear Calc 156.04, Est GFR ( MDRD) Af Amer 176, Est GFR (MDRD) Non-Af 146, BUN/Creatinine Ratio 11.1, Glucose 170 H, Calcium 7.7 L 12/07/17 04:00: WBC 8.5, RBC 4.17 L, Hgb 13.0, Hct 36.6 L, MCV 87.8, MCH 31.2, MCHC 35.5, RDW 14.3, RDW Differential 45.8 H, Plt Count 170, MPV 9.3 12/07/17 04:00: Magnesium 1.9 12/07/17 04:00: Lipase 496 H 12/07/17 05:17: POC Glucose 157 H Current Medications Amlodipine Besylate (Norvasc) 5 mg PO DAILY [facility] Bisacodyl (Dulcolax) 5 mg PO DAILY PRN PRN PRN Reason: Constipation Dextrose (D50w Syringe) 0 gm IV X1 PRN; Protocol PRN Reason: Hypoglycemia Fluoxetine HCl (Prozac) 60 mg PO DAILY [facility] Folic Acid (Folic Acid) 1 mg PO DAILYCM [facility] Glucagon () 1 mg IM .X1 PRN PRN Reason: Hypoglycemia Heparin Sodium (Porcine) (Heparin Na) 5,000 unit SC Q8 [facility] Last Admin: 12/07/17 05:12 Dose: 5,000 unit Hydrochlorothiazide (Hctz) 25 mg PO DAILY [facility] Lactated Ringer's () 1,000 mls @ 250 mls/hr IV .Q4H [facility] Stop: 12/07/17 11:21 Last Admin: 12/07/17 07:31 Dose: 250 mls/hr Thiamine HCl 200 mg/ Sodium (Chloride) 52 mls @ 200 mls/hr IV DAILY [facility] Potassium Chloride (Kcl 10meq/100ml) 10 meq in 100 mls @ 100 mls/hr IV BOLUS Q1H [facility] Stop: 12/07/17 08:59 Last Admin: 12/07/17 06:19 Dose: 100 mls/hr Insulin Glargine (Lantus (Bkc)) 50 units SC QHS [facility] Insulin Human Lispro (Humalog Kwikpen (Bkc)) 0 unit SQ Q6 [facility] PRN Reason: Protocol Last Admin: 12/07/17 05:17 Dose: 2 units Lisinopril (Zestril) 20 mg PO DAILY [facility] Lorazepam (Ativan) 2 mg PO Q2H PRN PRN; Protocol PRN Reason: CIWA score > 8 but <15 Lorazepam (Ativan) 2 mg PO UD PRN; Protocol PRN Reason: CIWA score >/=15. Lorazepam (Ativan) 2 mg IV Q2H PRN PRN; Protocol PRN Reason: CIWA score > 8 but <15 Lorazepam (Ativan) 2 mg IV UD PRN; Protocol PRN Reason: CIWA score >/=15. Last Admin: 12/07/17 01:46 Dose: 2 mg Magnesium Hydroxide (Milk Of Magnesia) 30 ml PO DAILY PRN PRN PRN Reason: Constipation Meloxicam (Mobic) 15 mg PO BID [facility] Methocarbamol (Robaxin) 250 mg PO DAILY [facility] Multivitamins (Multivitamin) 1 tablet PO DAILYCM [facility] Nicotine (Nicoderm Cq (Pbkc)) 21 mg TRANSDERM. DAILY [facility] Ondansetron HCl (Zofran) 4 mg IV Q6H PRN PRN PRN Reason: NAUSEA/VOMITING Pantoprazole Sodium (Protonix) 20 mg PO DAILY [facility] Quetiapine Fumarate (Seroquel) 50 mg PO QHS PRN PRN Reason: insomnia Sodium Chloride () 5 - 30 ml IV UD PRN PRN Reason: SALINE FLUSH Last Admin: 12/06/17 23:55 Dose: 20 ml Medical Necessity - Tobacco Use Smoking Status: Current every day smoker - Smokes cigarettes. Assessment/Plan All Active Problems Alcohol intoxication (Acute) Pancreatitis (Acute) Alcohol withdrawal (Acute) 47-year-old gentleman with history of alcohol dependence who presented with abdominal pain. Patient was found to be intoxicated with alcohol levels of 465. He was also found to have acute pancreatitis admitted to the intensive care unit for subsequent management 1. Abdominal pain secondary to alcohol induced pancreatitis admitted to intensive care unit where patient is currently being managed conservatively 2. Chronic alcohol dependence with acute intoxication upon presentation 3. Early withdrawal; be managed with Lorazepam using the CIWA protocol patient was also placed on multivitamin thiamine as well as folic acid 4. Diabetes mellitus type II: uncontrolle. Placed on long acting insulin, Accu -Cheks a.c. and at bedtime and covered with sliding scale insulin 5. Hypertension-blood pressure controlled, home medications continued with dose adjustment as needed 6. Depression with anxiety patient is on SSRI as well as Seroquel 7. Obesity with BMI of 30.2 8. DVT prophylaxis SC heparin Active Medications Amlodipine Besylate (Norvasc) 5 mg PO DAILY [facility] Bisacodyl (Dulcolax) 5 mg PO DAILY PRN PRN PRN Reason: Constipation Dextrose (D50w Syringe) 0 gm IV X1 PRN; Protocol PRN Reason: Hypoglycemia Fluoxetine HCl (Prozac) 60 mg PO DAILY [facility] Folic Acid (Folic Acid) 1 mg PO DAILYCM [facility] Glucagon () 1 mg IM .X1 PRN PRN Reason: Hypoglycemia Heparin Sodium (Porcine) (Heparin Na) 5,000 unit SC Q8 [facility] Last Admin: 12/07/17 05:12 Dose: 5,000 unit Hydrochlorothiazide (Hctz) 25 mg PO DAILY [facility] Lactated Ringer's () 1,000 mls @ 250 mls/hr IV .Q4H [facility] Stop: 12/07/17 11:21 Last Admin: 12/07/17 07:31 Dose: 250 mls/hr Thiamine HCl 200 mg/ Sodium (Chloride) 52 mls @ 200 mls/hr IV DAILY [facility] Potassium Chloride (Kcl 10meq/100ml) 10 meq in 100 mls @ 100 mls/hr IV BOLUS Q1H [facility] Stop: 12/07/17 08:59 Last Admin: 12/07/17 06:19 Dose: 100 mls/hr Insulin Glargine (Lantus (Bkc)) 50 units SC QHS [facility] Insulin Human Lispro (Humalog Kwikpen (Bkc)) 0 unit SQ Q6 [facility] PRN Reason: Protocol Last Admin: 12/07/17 05:17 Dose: 2 units Lisinopril (Zestril) 20 mg PO DAILY [facility] Lorazepam (Ativan) 2 mg PO Q2H PRN PRN; Protocol PRN Reason: CIWA score > 8 but <15 Lorazepam (Ativan) 2 mg PO UD PRN; Protocol PRN Reason: CIWA score >/=15. Lorazepam (Ativan) 2 mg IV Q2H PRN PRN; Protocol PRN Reason: CIWA score > 8 but <15 Lorazepam (Ativan) 2 mg IV UD PRN; Protocol PRN Reason: CIWA score >/=15. Last Admin: 12/07/17 01:46 Dose: 2 mg Magnesium Hydroxide (Milk Of Magnesia) 30 ml PO DAILY PRN PRN PRN Reason: Constipation Meloxicam (Mobic) 15 mg PO BID [facility] Methocarbamol (Robaxin) 250 mg PO DAILY [facility]) [facility] Nicotine (Nicoderm Cq (Pbkc)) 21 mg TRANSDERM. DAILY [facility] Ondansetron HCl (Zofran) 4 mg IV Q6H PRN PRN PRN Reason: NAUSEA/VOMITING Pantoprazole Sodium (Protonix) 20 mg PO DAILY [facility] Quetiapine Fumarate (Seroquel) 50 mg PO QHS PRN PRN Reason: insomnia Sodium Chloride () 5 - 30 ml IV UD PRN PRN Reason: SALINE FLUSH Last Admin: 12/06/17 23:55 Dose: 20 ml Code Visit Inpatient E&M: [id number] Subs Hosp L3
--- NOTE | 2017-12-07 09:59 | CASEMGMT ---
Addendum entered by Kenyetta Worthy 12/07/17 12:41: Vamshi from [employer] gave this SW a list of inpt programs that may be options for this pt. Vamshi states pt will need to call himself however. SW attempted to speak w/pt, however he is asleep at present. SW will follow up w/pt when he is able to speak w/this SW. BARRINGTON Junior, PASSENGER ATTENDANT Original Note: Vamshi from [employer] will go see pt for resources regarding alcohol abuse. BARRINGTON Junior, PASSENGER ATTENDANT
[2017-12-07] MEDS: Ondansetron 4 MG/2 ML Vial IV (10:00)
[2017-12-07] MEDS: 0.9% NaCl Peripheral Flush Adult/Peds IV ×3 (10:04→23:25)
[2017-12-07] MEDS: CHLORHEXIDINE GLUC 2% CLOTH 1 EACH TOWELETTE TOPICAL (10:26)
[2017-12-07 10:42] LABS: Urine Sodium 58 mmol/L (Not Establ.)
[2017-12-07] MEDS: Lactated Ringers 1,000 ML 125 ML IV ×2 (11:42→19:56)
[2017-12-07 11:46] LABS: Osmolality, Urine 473 mOsm/KG
[2017-12-07 11:51] LABS: Bedside Glucose 166 mg/dL (70-110)
[2017-12-07 18:31] LABS: Bedside Glucose 184 mg/dL (70-110)
[2017-12-07 22:11] LABS: Bedside Glucose 191 mg/dL (70-110)
[2017-12-07 23:36] LABS: Bedside Glucose 185 mg/dL (70-110)
[2017-12-08] VITALS (45 sets, daily range): BP systolic 87–165; BP diastolic 59–114; PULSE 51–79; RESP 12–30; TEMP 36.2–37; O2SAT 92–100
[2017-12-08] MEDS: LORazepam 2 MG/ML Syringe IV ×3 (01:54→08:10)
[2017-12-08] MEDS: 0.9% NaCl Peripheral Flush Adult/Peds IV ×5 (01:56→08:10)
[2017-12-08 04:01] LABS: Hematocrit 38.3 % (40-54); Hemoglobin 13.7 g/dl (13.0-16.5); Mean Corp Hgb Conc 35.8 g/gl (32-36); Mean Corpuscular Hgb 31.4 pg (27.0-32.0); Mean Corpuscular Volume 87.8 fL (80-94); Mean Platelet Vol. 10.2 fl (6.2-12.0); Platelet Count 171 K/mm3 (150-450); RBC Distribution Width CV 13.8 % (11.6-14.6); RBC Distribution Width SD 43.9 fl (35.1-43.9); Red Blood Count 4.36 M/mm3 (4.6-6.2); White Blood Count 7.9 K/mm3 (4.4-11.0)
[2017-12-08 04:07] LABS: Scan Indicated on CBC? Y/N NO
[2017-12-08] MEDS: Lactated Ringers 1,000 ML 125 ML IV (04:17)
[2017-12-08 04:24] LABS: AST(SGOT) 57 U/L (15-37); Alanine Aminotransfer ALT/SGPT 46 U/L (16-61); Albumin, Serum 3.3 g/dL (3.2-5.0); Alkaline Phosphatase 113 U/L (45-117); Anion Gap 12 (5-15); BUN 9 mg/dL (7-18); Calcium,Total 8.4 mg/dL (8.5-10.1); Chloride 97 mmol/L (98-107); EST Glomerular Filtration Rate 153 mL/min (>60); Est Glom Filt Rate - Afr Amer 186 mL/min (>60); Estimated Creatinine Clearance 163.85 ml/min; Globulin 3.9 g/dL (2.2-4.2); Glucose 129 mg/dL (74-106); Magnesium 1.8 mg/dL (1.6-2.6); Potassium 3.4 mmol/L (3.5-5.1); Protein, Total 7.2 g/dL (6.4-8.2); Sodium Level 137 mmol/L (136-145)
[2017-12-08] MEDS: Heparin Injection (Vial) 5,000 UNIT/ML VIAL 5000 UNIT SC ×3 (04:52→21:18)
[2017-12-08] MEDS: Ondansetron 4 MG/2 ML Vial IV (05:14)
[2017-12-08 06:10] LABS: Bedside Glucose 142 mg/dL (70-110)
--- NOTE | 2017-12-08 07:12 | PN_ITS ---
Subjective: The patient was seen and examined at the bedside this morning. Events from the last 24 hours have been reviewed. The patient is currently afebrile, hemodynamically stable and maintaining appropriate oxygen saturations on room air. The patient has been experiencing significant restlessness, agitation and hallucinations overnight. He is currently on Precedex at 1.1 mcg. Despite this , CIWA scores remain elevated. Fortunately, despite the patient's agitation, he remains largely redirectable at this time. Objective: The patient's most recent lab work, culture data and imaging studies have all been personally reviewed. General: Alert, Confused, Disoriented HEENT: Atraumatic, PERRLA, Normocephalic Oral: No Gingival or Mucosal Lesions/ Ulcerations Neck: Supple, No Nodes, Trachea Midline Lungs: No rhonchi, No wheeze, No rales, Diminished Cardiovascular: Regular rate, Regular Rhythm, Normal S1, Normal S2, No murmurs Abdomen: Bowel Sounds Present, Soft, Non Tender Extremities: No clubbing, No cyanosis, No edema Skin: No breakdown Musculoskeletal: No Muscle Wasting Lymphatic: No Cervical, Supraclavicular, or Inguinal Adenopathy Neurological: - - No focal neurological deficits. Psych/Mental Status: Agitated, Hallucinations, Impulsive, Restless Vital Signs Temp Pulse Resp BP Pulse Ox 97.9 F 59 L 21 H 120/91 H 92 12/08/17 04:00 12/08/17 06:00 12/08/17 06:00 12/08/17 06:00 12/08/17 06:00 Oxygen Delivery Method Room Air Weight: 216 lb 7.903 oz Body Mass Index (BMI) 29.9 Intake and Output for Last 24 Hours 12/06/17 12/07/17 12/08/17 23:59 23:59 23:59 Intake Total 2125 / 2125 4920.2 / 4920.2 866 / 866 Output Total 3200 / 3200 1000 / 1000 Balance 2125 1720.2 / 1720.2 -134 / -134 Labs (Last 48 Hours) 12/06/17 12/07/17 12/07/17 23:27 04:00 04:00 WBC 8.5 RBC 4.17 L Hgb 13.0 Hct 36.6 L MCV 87.8 MCH 31.2 MCHC 35.5 RDW 14.3 RDW Differential 45.8 H Plt Count 170 MPV 9.3 Sodium 138 Potassium 3.3 L Chloride 98 Carbon Dioxide 25.0 Anion Gap 15 BUN 7 Creatinine 0.63 L Estim Creat Clear Calc 156.04 Est GFR (MDRD) Af Amer 176 Est GFR (MDRD) Non-Af 146 BUN/Creatinine Ratio 11.1 Glucose 170 H Calcium 7.7 L Magnesium Total Bilirubin Direct Bilirubin AST ALT Alkaline Phosphatase Total Protein Albumin Globulin Lipase Urine Osmolality Ur Random Sodium POC Glucose 264 H 12/07/17 12/07/17 12/07/17 04:00 04:00 05:17 WBC RBC Hgb Hct MCV MCH MCHC RDW RDW Differential Plt Count MPV Sodium Potassium Chloride Carbon Dioxide Anion Gap BUN Creatinine Estim Creat Clear Calc Est GFR (MDRD) Af Amer Est GFR (MDRD) Non-Af BUN/Creatinine Ratio Glucose Calcium Magnesium 1.9 Total Bilirubin Direct Bilirubin AST ALT Alkaline Phosphatase Total Protein Albumin Globulin Lipase 496 H Urine Osmolality Ur Random Sodium POC Glucose 157 H 12/07/17 12/07/17 12/07/17 09:50 09:50 11:41 WBC RBC Hgb Hct MCV MCH MCHC RDW RDW Differential Plt Count MPV Sodium Potassium Chloride Carbon Dioxide Anion Gap BUN Creatinine Estim Creat Clear Calc Est GFR (MDRD) Af Amer Est GFR (MDRD) Non-Af BUN/Creatinine Ratio Glucose Calcium Magnesium Total Bilirubin Direct Bilirubin AST ALT Alkaline Phosphatase Total Protein Albumin Globulin Lipase Urine Osmolality 473 Ur Random Sodium 58 POC Glucose 166 H 12/07/17 12/07/17 12/07/17 18:22 22:00 23:28 WBC RBC Hgb Hct MCV MCH MCHC RDW RDW Differential Plt Count MPV Sodium Potassium Chloride Carbon Dioxide Anion Gap BUN Creatinine Estim Creat Clear Calc Est GFR (MDRD) Af Amer Est GFR (MDRD) Non-Af BUN/Creatinine Ratio Glucose Calcium Magnesium Total Bilirubin Direct Bilirubin AST ALT Alkaline Phosphatase Total Protein Albumin Globulin Lipase Urine Osmolality Ur Random Sodium POC Glucose 184 H 191 H 185 H 12/08/17 12/08/17 12/08/17 03:50 03:50 06:05 WBC 7.9 RBC 4.36 L Hgb 13.7 Hct 38.3 L MCV 87.8 MCH 31.4 MCHC 35.8 RDW 13.8 RDW Differential 43.9 Plt Count 171 MPV 10.2 Sodium 137 Potassium 3.4 L Chloride 97 L Carbon Dioxide 28.0 Anion Gap 12 BUN 9 Creatinine 0.60 L Estim Creat Clear Calc 163.85 Est GFR (MDRD) Af Amer 186 Est GFR (MDRD) Non-Af 153 BUN/Creatinine Ratio 15.0 Glucose 129 H Calcium 8.4 L Magnesium 1.8 Total Bilirubin 1.70 H Direct Bilirubin 0.50 H AST 57 H ALT 46 Alkaline Phosphatase 113 Total Protein 7.2 Albumin 3.3 Globulin 3.9 Lipase Urine Osmolality Ur Random Sodium POC Glucose 142 H Medical Necessity - Tobacco Use Smoking Status: Current every day smoker - Smokes cigarettes. Assessment/Plan All Active Problems Alcohol intoxication (Acute) Pancreatitis (Acute) Alcohol withdrawal (Acute) RECOMMENDATIONS: 1. Obtain arterial blood gas in [address] patient on Unasyn for empiric coverage for aspiration pneumonia. 3. Obtain sputum culture. 4. Transition from Precedex to propofol for sedation, given that the patient is now intubated. 5. Obtain nutrition recommendations with regards to tube feed initiation. 6. Continue appropriate ICU prophylaxis. IMPRESSIONS: 1. Alcoholic pancreatitis Patient to remain n.p.o. for now with supplemental IV fluid hydration. Trend lipase levels and monitor for improvement in abdominal pain complaints. Alcohol cessation is strongly advised. The patient's mentation and active alcohol withdrawal symptoms, will limit his ability for his diet to be advanced. 2. Chronic alcohol dependency with acute withdrawal Continue monitoring with CIWA protocol. Continue thiamine and folate repletion. Continue Precedex as ordered. 3. Hypokalemia Electrolyte repletion underway. Given the patient's prolonged alcohol dependence history, he will be at risk for refeeding syndrome. Recommend checking magnesium and phosphorus levels as well and repeating as necessary. 4. Diabetes mellitus/hypertension/depression/anxiety tobacco dependency Complicates care, management, recovery and prognosis. The patient's baseline antihypertensive medications are currently on hold, given his n.p.o. status. Continue Lantus and sliding scale insulin coverage every 6 hours. Continue nicotine replacement therapy. ADDENDUM: Over the course of this morning, the patient continued to experience progressive hallucinations, agitation and restlessness. His Precedex infusion rate was maximized. Despite this, the patient became difficult to control and could not be redirected. Therefore, the decision was made to proceed with elective intubation, given the profound agitation noted. Bedside Intubation Note: The patient was placed in appropriate positioning. He was premedicated with a small amount of propofol. Preoxygenation was accomplished with bag valve mask ventilation. Rapid sequence intubation was performed using succinylcholine. Video laryngoscopy revealed a grade 1 view with a significant amount of dried, purulent appearing secretions in the patient's posterior oropharynx, partially obstructing the view of the patient's vocal cords. Despite this, a #8 endotracheal tube was able to be placed without complication. Good color change was noted along with bilateral breath sounds. TIME: 45 minutes of critical care time, inclusive of procedures, was spent addressing the patient's acute alcohol withdrawal/delirium tremens, alcoholic pancreatitis , hypokalemia, diabetes mellitus, review of all data and collaboration with the care team. ([id number]) Code Visit [id number]: [id number] Critical care first hour
--- NOTE | 2017-12-08 07:30 | PCM.PN.HOSP ---
Patient Problems: Active and Suspected Problems Alcohol intoxication (Acute) Pancreatitis (Acute) Subjective: Patient went into full-blown delirium tremens. Currently on Precedex per nursing staff patient has remained agitated restless and apparently hallucinating Objective: GENERAL: Lethargic HEENT: Clear conjunctiva, NECK; supple, normal thyroid, . CHEST: Clear to auscultation bilaterally, HEART: Regular S1 S2, ABDOMEN: soft, normoactive bowel sounds, RECTAL: deferred EXTREMITIES: No edema, no clubbing, no cyanosis. 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 assess SKIN: No Rash Vitals/I&O's: Vital Signs Temp Pulse Resp BP Pulse Ox 97.9 F 59 L 21 H 120/91 H 92 12/08/17 04:00 12/08/17 06:00 12/08/17 06:00 12/08/17 06:00 12/08/17 06:00 Oxygen Delivery Method Room Air Weight: 98.2 kg Body Mass Index (BMI) 29.9 Intake and Output for Last 24 Hours 12/06/17 12/07/17 12/08/17 23:59 23:59 23:59 Intake Total 2125 / 2125 4920.2 / 4920.2 866 / 866 Output Total 3200 / 3200 1000 / 1000 Balance 2125 / 2125 1720.2 / 1720.2 -134 / -134 Laboratory Results 12/07/17 09:50: Urine Osmolality 473 12/07/17 09:50: Ur Random Sodium 58 12/07/17 11:41: POC Glucose 166 H 12/07/17 18:22: POC Glucose 184 H 12/07/17 22:00: POC Glucose 191 H 12/07/17 23:28: POC Glucose 185 H 12/08/17 03:50: WBC 7.9, RBC 4.36 L, Hgb 13.7, Hct 38.3 L, MCV 87.8, MCH 31.4, MCHC 35.8, RDW 13.8, RDW Differential 43.9, Plt Count 171, MPV 10.2 12/08/17 03:50: Sodium 137, Potassium 3.4 L, Chloride 97 L, Carbon Dioxide 28.0, Anion Gap 12, BUN 9, Creatinine 0.60 L, Estim Creat Clear Calc 163.85, Est GFR (MDRD) Af Amer 186, Est GFR (MDRD) Non-Af 153, BUN/Creatinine Ratio 15.0, Glucose 129 H, Calcium 8.4 L, Magnesium 1.8, Total Bilirubin 1.70 H, Direct Bilirubin 0.50 H, AST 57 H, ALT 46, Alkaline Phosphatase 113, Total Protein 7.2, Albumin 3.3, Globulin 3.9 12/08/17 06:05: POC Glucose 142 H Current Medications Bisacodyl (Dulcolax) 5 mg PO DAILY PRN PRN PRN Reason: Constipation Chlorhexidine Gluconate () 1 each TOPICAL DAILY [facility] Last Admin: 12/07/17 10:26 Dose: 1 each Dextrose (D50w Syringe) 0 gm IV X1 PRN; Protocol PRN Reason: Hypoglycemia Folic Acid (Folic Acid) 1 mg PO DAILYCM [facility] Last Admin: 12/07/17 08:27 Dose: Not Given Glucagon () 1 mg IM .X1 PRN PRN Reason: Hypoglycemia Heparin Sodium (Porcine) (Heparin Na) 5,000 unit SC Q8 [facility] Last Admin: 12/08/17 04:52 Dose: 5,000 unit Thiamine HCl 200 mg/ Sodium (Chloride) 52 mls @ 200 mls/hr IV DAILY [facility] Last Admin: 12/07/17 10:33 Dose: 200 mls/hr Dexmedetomidine HCl 400 mcg/ (Sodium Chloride) 100 mls @ 12.26 mls/hr IV .Q8H10M NIRMAL; 0.5 MCG/KG/HR PRN Reason: Protocol Last Admin: 12/08/17 07:28 Dose: 12.26 mls/hr Potassium Chloride (Kcl 10meq/100ml) 10 meq in 100 mls @ 100 mls/hr IV BOLUS Q1H NIRMAL Stop: 12/08/17 11:59 Potassium Chloride/Dextrose/Sod Cl (Kcl 20meq In D5.45ns 1000ml) 1,000 mls @ 125 mls/hr IV .Q8H [facility] Last Admin: 12/08/17 07:27 Dose: 125 mls/hr Magnesium Sulfate 2 gm/ Sodium (Chloride) 104 mls @ 52 mls/hr IV X1 ONE Stop: 12/08/17 09:59 Insulin Glargine (Lantus (Bkc)) 25 units SC QHS [facility] Last Admin: 12/07/17 22:01 Dose: 25 units Insulin Human Lispro (Humalog Kwikpen (Bkc)) 0 unit SQ Q6 NIRMAL PRN Reason: Protocol Last Admin: 12/08/17 06:07 Dose: Not Given Lorazepam (Ativan) 2 mg PO Q2H PRN PRN; Protocol PRN Reason: CIWA score > 8 but <15 Lorazepam (Ativan) 2 mg PO UD PRN; Protocol PRN Reason: CIWA score >/=15. Lorazepam (Ativan) 2 mg IV Q2H PRN PRN; Protocol PRN Reason: CIWA score > 8 but <15 Last Admin: 12/08/17 01:54 Dose: 2 mg Lorazepam (Ativan) 2 mg IV UD PRN; Protocol PRN Reason: CIWA score >/=15. Last Admin: 12/08/17 03:01 Dose: 2 mg Magnesium Hydroxide (Milk Of Magnesia) 30 ml PO DAILY PRN PRN PRN Reason: Constipation [facility] Admin: 12/07/17 08:27 Dose: Not Given Nicotine (Nicoderm Cq (Pbkc)) 21 mg TRANSDERM. DAILY [facility] Last Admin: 12/07/17 07:53 Dose: 21 mg Ondansetron HCl (Zofran) 4 mg IV Q6H PRN PRN PRN Reason: NAUSEA/VOMITING Last Admin: 12/08/17 05:14 Dose: 4 mg Pantoprazole Sodium (Protonix) 20 mg PO DAILY [facility] Last Admin: 12/07/17 09:41 Dose: Not Given Sodium Chloride () 5 - 30 ml IV UD PRN PRN Reason: SALINE FLUSH Last Admin: 12/08/17 05:14 Dose: 10 ml Medical Necessity - Tobacco Use Smoking Status: Current every day smoker - Smokes cigarettes. Assessment/Plan All Active Problems Alcohol intoxication (Acute) Pancreatitis (Acute) Alcohol withdrawal (Acute) 47-year-old gentleman with history of alcohol dependence who presented with abdominal pain. Patient was found to be intoxicated with alcohol levels of 465. He was also found to have acute pancreatitis admitted to the intensive care unit for subsequent management 1. Abdominal pain secondary to alcohol induced pancreatitis admitted to intensive care unit where patient is currently being managed conservatively 2. Acute delirium tremens secondary to alcohol abuse; managed with Lorazepam using the CIWA protocol patient was also placed on multivitamin thiamine as well as folic acid patient managed on Precedex 3. Chronic alcohol dependence with acute intoxication upon presentation 4. Diabetes mellitus type II: uncontrolled. Placed on long acting insulin, Accu-Cheks a.c. and at bedtime and covered with sliding scale insulin 5. Hypertension-blood pressure controlled, home medications continued with dose adjustment as needed 6. Depression with anxiety patient is on SSRI as well as Seroquel 7. Obesity with BMI of 30.2 8. DVT prophylaxis SC heparin Active Medications Bisacodyl (Dulcolax) 5 mg PO DAILY PRN PRN PRN Reason: Constipation Chlorhexidine Gluconate () 1 each TOPICAL DAILY [facility] Last Admin: 12/07/17 10:26 Dose: 1 each Dextrose (D50w Syringe) 0 gm IV X1 PRN; Protocol PRN Reason: Hypoglycemia Folic Acid (Folic Acid) 1 mg PO DAILYCM [facility] Last Admin: 12/08/17 07:32 Dose: Not Given Glucagon () 1 mg IM .X1 PRN PRN Reason: Hypoglycemia Heparin Sodium (Porcine) (Heparin Na) 5,000 unit SC Q8 [facility] Last Admin: 12/08/17 04:52 Dose: 5,000 unit Thiamine HCl 200 mg/ Sodium (Chloride) 52 mls @ 200 mls/hr IV DAILY [facility] Last Admin: 12/07/17 10:33 Dose: 200 mls/hr Dexmedetomidine HCl 400 mcg/ (Sodium Chloride) 100 mls @ 12.26 mls/hr IV .Q8H10M NIRMAL; 0.5 MCG/KG/HR PRN Reason: Protocol Last Admin: 12/08/17 07:28 Dose: 12.26 mls/hr Potassium Chloride (Kcl 10meq/100ml) 10 meq in 100 mls @ 100 mls/hr IV BOLUS Q1H [facility] Stop: 12/08/17 11:59 Potassium Chloride/Dextrose/Sod Cl (Kcl 20meq In D5.45ns 1000ml) 1,000 mls @ 125 mls/hr IV .Q8H [facility] Last Admin: 12/08/17 07:27 Dose: 125 mls/hr Magnesium Sulfate 2 gm/ Sodium (Chloride) 104 mls @ 52 mls/hr IV X1 ONE Stop: 12/08/17 09:59 Insulin Glargine (Lantus (Bkc)) 25 units SC QHS [facility] Last Admin: 12/07/17 22:01 Dose: 25 units Insulin Human Lispro (Humalog Kwikpen (Bkc)) 0 unit SQ Q6 [facility] PRN Reason: Protocol Last Admin: 12/08/17 06:07 Dose: Not Given Lorazepam (Ativan) 2 mg PO Q2H PRN PRN; Protocol PRN Reason: CIWA score > 8 but <15 Lorazepam (Ativan) 2 mg PO UD PRN; Protocol PRN Reason: CIWA score >/=15. Lorazepam (Ativan) 2 mg IV Q2H PRN PRN; Protocol PRN Reason: CIWA score > 8 but <15 Last Admin: 12/08/17 01:54 Dose: 2 mg Lorazepam (Ativan) 2 mg IV UD PRN; Protocol PRN Reason: CIWA score >/=15. Last Admin: 12/08/17 03:01 Dose: 2 mg Magnesium Hydroxide (Milk Of Magnesia) 30 ml PO DAILY PRN PRN PRN Reason: Constipation [facility]ivit[facility] ([facility]amin) [facility] Last Admin: 12/08/17 07:33 Dose: Not Given Nicotine (Nicoderm Cq (Pbkc)) 21 mg TRANSDERM. DAILY [facility] Last Admin: 12/07/17 07:53 Dose: 21 mg Ondansetron HCl (Zofran) 4 mg IV Q6H PRN PRN PRN Reason: NAUSEA/VOMITING Last Admin: 12/08/17 05:14 Dose: 4 mg Pantoprazole Sodium (Protonix) 20 mg PO DAILY [facility] Last Admin: 12/07/17 09:41 Dose: Not Given Sodium Chloride () 5 - 30 ml IV UD PRN PRN Reason: SALINE FLUSH Last Admin: 12/08/17 05:14 Dose: 10 ml Code Visit Inpatient E&M: 34176 Subs Hosp L3
[2017-12-08 08:05] LABS: Lipase 474 U/L (73-393)
[2017-12-08] MEDS: CHLORHEXIDINE GLUC 2% CLOTH 1 EACH TOWELETTE TOPICAL (10:11)
--- NOTE | 2017-12-08 10:35 | NURSING ---
Dr. Sadler at bedside preparing to intubate 1040: Propofol drip initiated at 25 mcg/kg/min per MD order. 100mg Succinycholine given IVP. 1042: Intubated by Dr. Sadler without difficulty. #8 ETT, 22 at the lip. + color change. bilat breath sounds per RT 1045: ETT secured. OGT inserted and verified w/ auscultation. Stat CXR ordered for placement verification.
[2017-12-08] MEDS: Propofol 10MG/Ml 1,000 MG/100 ML Bottle 2.946 MG CONT INF ×3 (10:40→20:47)
[2017-12-08] MEDS: Succinylcholine Chloride 200 MG/10 ML Vial 100 MG IV (10:40)
--- NOTE | 2017-12-08 11:00 | RAD_ITS ---
STUDY: X-RAY CHEST REASON FOR EXAM: Male, 47 years old. Endotracheal tube and oral gastric tube placement. TECHNIQUE: Single AP portable view of the chest. COMPARISON: None. FINDINGS: An endotracheal tube is in situ. The tip is at 5 cm proximal to the lucila. An oral gastric tube is seen with tip in the fundal portion of the stomach. EKG electrodes are seen. Mild increased markings at the left lung base with blunting of the left costophrenic angle. This may represent either atelectasis and/or an early left basilar infiltrate. The right lung is clear. Normal size heart. Normal mediastinum and dinorah. Normal visualized pulmonary arteries. Normal visualized aortic arch and descending thoracic aorta. Normal visualized thoracic spine. Normal visualized ribs, clavicles, and shoulders. There is no demonstrated abnormality of the visualized soft tissue structures of the upper abdomen. RAD/Chest 1 View (Portable) IMPRESSION: The tip of the endotracheal tube is at 5 cm proximal to the lucila. The tip of the orogastric tube is in the fundal portion of the stomach. Increased markings at the left lung base with blunting of the left costophrenic angle. Electronically Signed: Karan Talbert MD at 11:22 EDT Tel [phone], Service support ,
[2017-12-08 11:50] LABS: Bedside Glucose 178 mg/dL (70-110)
[2017-12-08] MEDS: Insulin Lispro 100 UNIT/ML INSULN.PEN SQ ×3 (11:52→23:39)
[2017-12-08 12:20] LABS: CPK Total, Creatine Kinase 507 U/L (39-308); Triglycerides 327 mg/dL
--- NOTE | 2017-12-08 12:51 | NS ---
Rec Vital AF 1.2 at goal rate of 75cc/hour w/ 115cc flush every 4 hours to provide 2160 calories, 135 g protein, and 2150cc free fluid per day. Would start TF at 25cc/hour and increase by 20cc every 6 to 8 hours as pt tolerates until goal rate achieved.
[2017-12-08 12:56] LABS: Allen Test POS; Base Excess 3 mmol/L (-2 to +2); Bicarbonate 27.2 mmol/L (22-26); Blood Gas Specimen Type ART; FI02 50; Mode A-C; O2 Delivery Device Vent; PEEP 5; PO2 166 mmHG (75-100); RR 14; SITE R Radial; SO2 100 % (95-99); Time Given 1247; Total Carbon Dioxide 28 mmol/L; Vt 500; pCO2 38.4 mmHg (35-45); pH 7.46 (7.35-7.45)
[2017-12-08] MEDS: Famotidine 20 MG Tablet GT ×2 (12:58→21:18)
--- NOTE | 2017-12-08 13:16 | CASEMGMT ---
Pt is now intubated. SW will speak w/pt when appropriate regarding resources for alcohol abuse. BARRINGTON Junior, [employer] MECH[employer]IC
[2017-12-08] MEDS: Chlorhexidine 15 ML PO ×2 (13:37→21:18)
[2017-12-08 17:40] LABS: Bedside Glucose 187 mg/dL (70-110)
[2017-12-08] MEDS: Vital AF 1.2 Cal Liquid 1,000 ML 25 ML GT (19:32)
[2017-12-08] MEDS: Senna/Docusate Sodium 1 Tablet 2 TABLET GT (21:18)
[2017-12-08 21:46] LABS: Bedside Glucose 128 mg/dL (70-110)
[2017-12-08 23:56] LABS: Bedside Glucose 152 mg/dL (70-110)
[2017-12-09] VITALS (32 sets, daily range): BP systolic 97–137; BP diastolic 66–92; PULSE 63–94; RESP 12–19; TEMP 36.7–37.6; O2SAT 95–98
[2017-12-09] MEDS: Propofol 10MG/Ml 1,000 MG/100 ML Bottle 2.946 MG CONT INF ×6 (01:57→21:50)
[2017-12-09] MEDS: CHLORHEXIDINE GLUC 2% CLOTH 1 EACH TOWELETTE TOPICAL (04:14)
[2017-12-09 04:26] LABS: Hematocrit 38.3 % (40-54); Hemoglobin 13.4 g/dl (13.0-16.5); Mean Corpuscular Hgb 31.8 pg (27.0-32.0); Mean Corpuscular Volume 90.8 fL (80-94); Mean Platelet Vol. 10.4 fl (6.2-12.0); Platelet Count 156 K/mm3 (150-450); RBC Distribution Width CV 14.7 % (11.6-14.6); RBC Distribution Width SD 48.1 fl (35.1-43.9); Red Blood Count 4.22 M/mm3 (4.6-6.2); White Blood Count 12.7 K/mm3 (4.4-11.0)
[2017-12-09 04:27] LABS: Scan Indicated on CBC? Y/N NO
[2017-12-09 04:39] LABS: Anion Gap 9 (5-15); BUN 10 mg/dL (7-18); BUN/Creat Ratio 15.7 RATIO (10-20); Calcium,Total 8.1 mg/dL (8.5-10.1); Chloride 102 mmol/L (98-107); Creatinine, Serum 0.64 mg/dL (0.70-1.30); EST Glomerular Filtration Rate 144 mL/min (>60); Est Glom Filt Rate - Afr Amer 174 mL/min (>60); Estimated Creatinine Clearance 153.61 ml/min; Glucose 172 mg/dL (74-106); Magnesium 2.2 mg/dL (1.6-2.6); Potassium 3.4 mmol/L (3.5-5.1); Sodium Level 140 mmol/L (136-145)
[2017-12-09 04:58] LABS: Phosphorus 3.5 mg/dL (2.5-4.9)
[2017-12-09] MEDS: Insulin Lispro 100 UNIT/ML INSULN.PEN SQ ×4 (05:25→23:01)
[2017-12-09] MEDS: Heparin Injection (Vial) 5,000 UNIT/ML VIAL 5000 UNIT SC ×3 (05:25→21:51)
[2017-12-09 05:40] LABS: Bedside Glucose 191 mg/dL (70-110)
--- NOTE | 2017-12-09 07:49 | PN_ITS ---
Subjective: The patient was seen and examined at the bedside this morning. Events from the last 24 hours have been reviewed. The patient is currently afebrile, hemodynamically stable and maintaining appropriate oxygen saturations with an FiO2 requirement of 30%. The patient was electively intubated yesterday due to profound agitation, which was refractory to the use of Precedex. The patient is much more comfortable this morning, currently sedated with propofol and fentanyl. Upon intubation, the patient was noted to have thick, tenacious dried secretions in his posterior oropharynx. Therefore, he was placed empirically on Unasyn for possible aspiration. Objective: The patient's most recent lab work, culture data and imaging studies have all been personally reviewed. Sputum cultures currently pending. General: - - Intubated, sedated and mechanically ventilated. HEENT: Atraumatic, PERRLA, Normocephalic Oral: No Gingival or Mucosal Lesions/ Ulcerations, - - Endotracheal and OG tubes in place. Neck: Supple, No Nodes, Trachea Midline Lungs: No rhonchi, No wheeze, No rales, Diminished Cardiovascular: Regular rate, Regular Rhythm, Normal S1, Normal S2, No murmurs Abdomen: Bowel Sounds Present, Soft, Non Tender Extremities: No clubbing, No cyanosis, No edema Skin: No breakdown Musculoskeletal: No Tenderness to Palpation of Joints or Extremities Lymphatic: No Cervical, Supraclavicular, or Inguinal Adenopathy Neurological: - - No focal neurological deficits. Attempts to move extremities spontaneously. Psych/Mental Status: - - Intermittently agitated and restless Vital Signs Temp Pulse Resp BP Pulse Ox 99.0 F 79 12 110/76 98 12/09/17 04:00 12/09/17 06:30 12/09/17 06:30 12/09/17 06:00 12/09/17 06:30 Oxygen Delivery Method Mechanical Ventilator Weight: 207 lb 14.334 oz Body Mass Index (BMI) 29.9 Intake and Output for Last 24 Hours 12/07/17 12/08/17 12/09/17 23:59 23:59 23:59 Intake Total 4920.2 / 4920.2 4545.1 / 4545.1 1550.1 / 1550.1 Output Total 3200 / 3200 4730 / 4730 500 / 500 Balance 1720.2 / 1720.2 -184.9 / -184.9 1050.1 / 1050.1 Labs (Last 48 Hours) 12/07/17 12/07/17 12/07/17 09:50 09:50 11:41 WBC RBC Hgb Hct MCV MCH MCHC RDW RDW Differential Plt Count MPV Specimen Type Sample Site pH Bicarbonate Actual POC Total CO2 Base Excess O2 Saturation O2 % ABG pCO2 ABG pO2 Willi Test Respiration Rate O2 Delivery Device Minute Volume Vent Mode Tidal Volume POC PEEP Blood Gas Notified Whom Blood Gas Notified Time Sodium Potassium Chloride Carbon Dioxide Anion Gap BUN Creatinine Estim Creat Clear Calc Est GFR (MDRD) Af Amer Est GFR (MDRD) Non-Af BUN/Creatinine Ratio Glucose Calcium Phosphorus Magnesium Total Bilirubin Direct Bilirubin AST ALT Alkaline Phosphatase Total Creatine Kinase Total Protein Albumin Globulin Triglycerides Lipase Urine Osmolality 473 Ur Random Sodium 58 POC Glucose 166 H 12/07/17 12/07/17 12/07/17 18:22 22:00 23:28 WBC RBC Hgb Hct MCV MCH MCHC RDW RDW Differential Plt Count MPV Specimen Type Sample Site pH Bicarbonate Actual POC Total CO2 Base Excess O2 Saturation O2 % ABG pCO2 ABG pO2 Willi Test Respiration Rate O2 Delivery Device Minute Volume Vent Mode Tidal Volume POC PEEP Blood Gas Notified Whom Blood Gas Notified Time Sodium Potassium Chloride Carbon Dioxide Anion Gap BUN Creatinine Estim Creat Clear Calc Est GFR (MDRD) Af Amer Est GFR (MDRD) Non-Af BUN/Creatinine Ratio Glucose Calcium Phosphorus Magnesium Total Bilirubin Direct Bilirubin AST ALT Alkaline Phosphatase Total Creatine Kinase Total Protein Albumin Globulin Triglycerides Lipase Urine Osmolality Ur Random Sodium POC Glucose 184 H 191 H 185 H 12/08/17 12/08/17 12/08/17 03:50 03:50 03:50 WBC 7.9 RBC 4.36 L Hgb 13.7 Hct 38.3 L MCV 87.8 MCH 31.4 MCHC 35.8 RDW 13.8 RDW Differential 43.9 Plt Count 171 MPV 10.2 Specimen Type Sample Site pH Bicarbonate Actual POC Total CO2 Base Excess O2 Saturation O2 % ABG pCO2 ABG pO2 Willi Test Respiration Rate O2 Delivery Device Minute Volume Vent Mode Tidal Volume POC PEEP Blood Gas Notified Whom Blood Gas Notified Time Sodium 137 Potassium 3.4 L Chloride 97 L Carbon Dioxide 28.0 Anion Gap 12 BUN 9 Creatinine 0.60 L Estim Creat Clear Calc 163.85 Est GFR (MDRD) Af Amer 186 Est GFR (MDRD) Non-Af 153 BUN/Creatinine Ratio 15.0 Glucose 129 H Calcium 8.4 L Phosphorus 2.0 L Magnesium 1.8 Total Bilirubin 1.70 H Direct Bilirubin 0.50 H AST 57 H ALT 46 Alkaline Phosphatase 113 Total Creatine Kinase Total Protein 7.2 Albumin 3.3 Globulin 3.9 Triglycerides Lipase 474 H Urine Osmolality Ur Random Sodium POC Glucose 12/08/17 12/08/17 12/08/17 03:50 06:05 11:47 WBC RBC Hgb Hct MCV MCH MCHC RDW RDW Differential Plt Count MPV Specimen Type Sample Site pH Bicarbonate Actual POC Total CO2 Base Excess O2 Saturation O2 % ABG pCO2 ABG pO2 Willi Test Respiration Rate O2 Delivery Device Minute Volume Vent Mode Tidal Volume POC PEEP Blood Gas Notified Whom Blood Gas Notified Time Sodium Potassium Chloride Carbon Dioxide Anion Gap BUN Creatinine Estim Creat Clear Calc Est GFR (MDRD) Af Amer Est GFR (MDRD) Non-Af BUN/Creatinine Ratio Glucose Calcium Phosphorus Magnesium Total Bilirubin Direct Bilirubin AST ALT Alkaline Phosphatase Total Creatine Kinase 507 H Total Protein Albumin Globulin Triglycerides 327 H Lipase Urine Osmolality Ur Random Sodium POC Glucose 142 H 178 H 12/08/17 12/08/17 12/08/17 12:50 17:26 21:20 WBC RBC Hgb Hct MCV MCH MCHC RDW RDW Differential Plt Count MPV Specimen Type ART Sample Site R Radial pH 7.46 H Bicarbonate Actual 27.2 H POC Total CO2 28 Base Excess 3 H O2 Saturation 100 H O2 % 50 ABG pCO2 38.4 ABG pO2 166 H Willi Test POS Respiration Rate 14 O2 Delivery Device Vent Minute Volume 7.00 Vent Mode A-C Tidal Volume 500 POC PEEP 5 Blood Gas Notified Whom ICU MD Blood Gas Notified Time 1247 Sodium Potassium Chloride Carbon Dioxide Anion Gap BUN Creatinine Estim Creat Clear Calc Est GFR (MDRD) Af Amer Est GFR (MDRD) Non-Af BUN/Creatinine Ratio Glucose Calcium Phosphorus Magnesium Total Bilirubin Direct Bilirubin AST ALT Alkaline Phosphatase Total Creatine Kinase Total Protein Albumin Globulin Triglycerides Lipase Urine Osmolality Ur Random Sodium POC Glucose 187 H 128 H 12/08/17 12/09/17 12/09/17 23:38 04:15 04:15 WBC 12.7 H RBC 4.22 L Hgb 13.4 Hct 38.3 L MCV 90.8 MCH 31.8 MCHC 35.0 RDW 14.7 H RDW Differential 48.1 H Plt Count 156 MPV 10.4 Specimen Type Sample Site pH Bicarbonate Actual POC Total CO2 Base Excess O2 Saturation O2 % ABG pCO2 ABG pO2 Willi Test Respiration Rate O2 Delivery Device Minute Volume Vent Mode Tidal Volume POC PEEP Blood Gas Notified Whom Blood Gas Notified Time Sodium 140 Potassium 3.4 L Chloride 102 Carbon Dioxide 29.0 Anion Gap 9 BUN 10 Creatinine 0.64 L Estim Creat Clear Calc 153.61 Est GFR (MDRD) Af Amer 174 Est GFR (MDRD) Non-Af 144 BUN/Creatinine Ratio 15.7 Glucose 172 H Calcium 8.1 L Phosphorus Magnesium 2.2 Total Bilirubin Direct Bilirubin AST ALT Alkaline Phosphatase Total Creatine Kinase Total Protein Albumin Globulin Triglycerides Lipase Urine Osmolality Ur Random Sodium POC Glucose 152 H 12/09/17 12/09/17 04:15 05:25 WBC RBC Hgb Hct MCV MCH MCHC RDW RDW Differential Plt Count MPV Specimen Type Sample Site pH Bicarbonate Actual POC Total CO2 Base Excess O2 Saturation O2 % ABG pCO2 ABG pO2 Willi Test Respiration Rate O2 Delivery Device Minute Volume Vent Mode Tidal Volume POC PEEP Blood Gas Notified Whom Blood Gas Notified Time Sodium Potassium Chloride Carbon Dioxide Anion Gap BUN Creatinine Estim Creat Clear Calc Est GFR (MDRD) Af Amer Est GFR (MDRD) Non-Af BUN/Creatinine Ratio Glucose Calcium Phosphorus 3.5 Magnesium Total Bilirubin Direct Bilirubin AST ALT Alkaline Phosphatase Total Creatine Kinase Total Protein Albumin Globulin Triglycerides Lipase Urine Osmolality Ur Random Sodium POC Glucose 191 H Microbiology 12/08/17 11:07 Sputum, Induced/Lukens Gram Stain - Final Clinical Impression(s) from Imaging Studies Chest X-Ray 12/08/17 11:00 IMPRESSION: The tip of the endotracheal tube is at 5 cm proximal to the lucila. The tip of the orogastric tube is in the fundal portion of the stomach. Increased markings at the left lung base with blunting of the left costophrenic angle. Electronically Signed: Karan Talbert MD at 11:22 EDT Tel [phone], Service support , Medical Necessity - Tobacco Use Smoking Status: Current every day smoker - Smokes cigarettes. Assessment/Plan All Active Problems Alcohol intoxication (Acute) Pancreatitis (Acute) Alcohol withdrawal (Acute) RECOMMENDATIONS: 1. Continue current supportive measures with mechanical ventilation. 2. Continue propofol and fentanyl for sedation. 3. Perform spontaneous breathing trial tomorrow morning, as I anticipate that the patient should be out of his withdrawal window by that time. 4. Continue tube feeds as ordered. 5. Additional potassium repletion ordered 6. Continue thiamine and folate replacement 7. Continue Unasyn, pending infectious workup. 8. Continue appropriate ICU prophylaxis IMPRESSIONS: 1. Acute respiratory failure The patient was electively intubated on December 08, due to profound agitation and delirium in the setting of alcohol withdrawal, which was refractory to the use of Precedex. The patient was noted to have thick, tenacious dried secretions in his posterior oropharynx, raising the concern for aspiration. Therefore, he was placed empirically on Unasyn, pending infectious workup. He will be continued on propofol and fentanyl for sedation, with a goal to maintain a RASS of -1 to 1. We will plan to continue tube feeds as ordered. Plan for daily paired spontaneous awakening and breathing trials, beginning tomorrow. 2. Alcoholic pancreatitis The patient was initially treated with n.p.o. status and supplemental IV fluids. His pain and lipase levels improved. Following intubation, he was started on tube feeds, which he is currently tolerating. 3. Chronic alcohol dependency with acute withdrawal/delirium tremens The patient did have to be electively intubated on December 08, after he developed refractory agitation and delirium. He is currently much more comfortable and is sedated on propofol and fentanyl, which will be continued. Continue thiamine and folate. 4. Hypokalemia Electrolyte repletion underway. Given the patient's prolonged alcohol dependence history, he will be at risk for refeeding syndrome. 5. Diabetes mellitus/hypertension/depression/anxiety tobacco dependency Complicates care, management, recovery and prognosis. Continue Lantus and sliding scale insulin coverage. Continue nicotine replacement therapy. TIME: 38 minutes of critical care time, inclusive of procedures, was spent addressing the patient's acute alcohol withdrawal/delirium tremens, alcoholic pancreatitis , hypokalemia, diabetes mellitus, review of all data and collaboration with the care team. ([id number]) Code Visit [id number]: [id number] Critical care first hour
[2017-12-09 08:07] LABS: Lipase 537 U/L (73-393)
--- NOTE | 2017-12-09 08:18 | PCM.PN.HOSP ---
Patient Problems: Active and Suspected Problems Alcohol intoxication (Acute) Pancreatitis (Acute) Subjective: Patient is intubated on ventilator, 30% FiO2/500 mL tidal volume/03/01. Patient is on propofol and fentanyl drip but currently awake. Vitals/I&O's: Vital Signs Temp Pulse Resp BP Pulse Ox 99.0 F 79 12 110/76 98 12/09/17 04:00 12/09/17 06:30 12/09/17 06:30 12/09/17 06:00 12/09/17 06:30 Oxygen Delivery Method Mechanical Ventilator Weight: 207 lb 14.334 oz Body Mass Index (BMI) 29.9 Intake and Output for Last 24 Hours 12/07/17 12/08/17 12/09/17 23:59 23:59 23:59 Intake Total 4920.2 / 4920.2 4545.1 / 4545.1 1550.1 / 1550.1 Output Total 3200 / 3200 4730 / 4730 500 / 500 Balance 1720.2 / 1720.2 -184.9 / -184.9 1050.1 / 1050.1 General: Lethargic, - - Divided HEENT: Atraumatic, PERRLA, EOMI, Normocephalic Neck: Supple Lungs: Clear to auscultation, No rhonchi, No wheeze, No rales Cardiovascular: Regular rate, Regular Rhythm, Normal S1, No murmurs Abdomen: Bowel Sounds Present, Soft, Tender, - - Old midline surgical scar present in the upper abdomen Skin: No rashes, No breakdown Musculoskeletal: No Tenderness to Palpation of Joints or Extremities Neurological: Cranial nerves II-XII grossly intact, - - Currently on light sedation Microbiology Past 72 Hours 12/08/17 11:07 Sputum, Induced/Lukens Gram Stain - Final Laboratory Results 12/08/17 03:50: Total Creatine Kinase 507 H, Triglycerides 327 H 12/08/17 11:47: POC Glucose 178 H 12/08/17 12:50: Specimen Type ART, Sample Site R Radial, pH 7.46 H, Bicarbonate Actual 27.2 H, POC Total CO2 28, Base Excess 3 H, O2 Saturation 100 H, O2 % 50, ABG pCO2 38.4, ABG pO2 166 H, Willi Test POS, Respiration Rate 14, O2 Delivery Device Vent, Minute Volume 7.00, Vent Mode A-C, Tidal Volume 500, POC PEEP 5, Blood Gas Notified Whom ICU MD, Blood Gas Notified Time 1247 12/08/17 17:26: POC Glucose 187 H 12/08/17 21:20: POC Glucose 128 H 12/08/17 23:38: POC Glucose 152 H 12/09/17 04:15: WBC 12.7 H, RBC 4.22 L, Hgb 13.4, Hct 38.3 L, MCV 90.8, MCH 31.8, MCHC 35.0, RDW 14.7 H, RDW Differential 48.1 H, Plt Count 156, MPV 10.4 12/09/17 04:15: Sodium 140, Potassium 3.4 L, Chloride 102, Carbon Dioxide 29.0, Anion Gap 9, BUN 10, Creatinine 0.64 L, Estim Creat Clear Calc 153.61, Est GFR (MDRD) Af Amer 174, Est GFR (MDRD) Non-Af 144, BUN/Creatinine Ratio 15.7, Glucose 172 H, Calcium 8.1 L, Magnesium 2.2 12/09/17 04:15: Phosphorus 3.5 12/09/17 04:15: Lipase 537 H 12/09/17 05:25: POC Glucose 191 H Current Medications Bisacodyl (Dulcolax) 5 mg PO DAILY PRN PRN PRN Reason: Constipation Chlorhexidine Gluconate () 1 each TOPICAL DAILY [facility] Last Admin: 12/09/17 04:14 Dose: 1 each Chlorhexidine Gluconate () 15 ml PO BID [facility] Last Admin: 12/08/17 21:18 Dose: 15 ml Dextrose (D50w Syringe) 0 gm IV X1 PRN; Protocol PRN Reason: Hypoglycemia Famotidine (Pepcid) 20 mg GT BID [facility] Last Admin: 12/08/17 21:18 Dose: 20 mg Folic Acid (Folic Acid) 1 mg GT DAILYCM [facility] Glucagon () 1 mg IM .X1 PRN PRN Reason: Hypoglycemia Heparin Sodium (Porcine) (Heparin Na) 5,000 unit SC Q8 [facility] Last Admin: 12/09/17 05:25 Dose: 5,000 unit Ampicillin Sodium/Sulbactam (Sodium 3 gm/ Sodium Chloride) 112 mls @ 150 mls/hr IV Q6 [facility] Last Admin: 12/09/17 05:26 Dose: 150 mls/hr Propofol (Diprivan) 1,000 mg in 100 mls @ 2.946 mls/hr CONT INF .Q12H [facility]; 5 MCG/KG/MIN PRN Reason: Protocol Last Admin: 12/09/17 06:22 Dose: 2.946 mls/hr Fentanyl () 100 mls @ 5 mls/hr IV .Q20H [facility] PRN Reason: Protocol Last Admin: 12/09/17 06:43 Dose: 5 mls/hr Enteral Nutritional Formula (Vital Af 1.2 Alejandro Liquid) 1,000 mls @ 25 mls/hr GT .Q40H [facility] PRN Reason: Protocol Last Admin: 12/08/17 19:32 Dose: 25 mls/hr Potassium Chloride (Kcl 10meq/100ml) 10 meq in 100 mls @ 100 mls/hr IV BOLUS Q1H [facility] Stop: 12/09/17 13:59 Insulin Glargine (Lantus (Bkc)) 25 units SC QHS [facility] Last Admin: 12/08/17 21:18 Dose: 25 units Insulin Human Lispro (Humalog Kwikpen (Bkc)) 0 unit SQ Q6 [facility] PRN Reason: Protocol Last Admin: 12/09/17 05:25 Dose: 2 units Lorazepam (Ativan) 2 mg IV Q2H PRN PRN; Protocol PRN Reason: CIWA score > 8 but <15 Last Admin: 12/08/17 01:54 Dose: 2 mg Lorazepam (Ativan) 2 mg IV UD PRN; Protocol PRN Reason: CIWA score >/=15. Last Admin: 12/08/17 08:10 Dose: 2 mg Lorazepam (Ativan) 2 mg GT Q2H PRN PRN; Protocol PRN Reason: CIWA score > 8 but <15 Lorazepam (Ativan) 2 mg GT UD PRN; Protocol PRN Reason: CIWA score >/=15. Magnesium Hydroxide (Milk Of Magnesia) 30 ml GT DAILY PRN PRN PRN Reason: Constipation Multivitamins (Multivitamin) 1 tablet GT DAILYCM [facility] Nicotine (Nicoderm Cq (Pbkc)) 21 mg TRANSDERM. DAILY [facility] Last Admin: 12/08/17 10:11 Dose: 21 mg Ondansetron HCl (Zofran) 4 mg IV Q6H PRN PRN PRN Reason: NAUSEA/VOMITING Last Admin: 12/08/17 05:14 Dose: 4 mg Senna/Docusate Sodium (Senokot-S, Eugenie-Colace) 2 tablet GT BID [facility] Last Admin: 12/08/17 21:18 Dose: 2 tablet Sodium Chloride () 5 - 30 ml IV UD PRN PRN Reason: SALINE FLUSH Last Admin: 12/08/17 08:10 Dose: 10 ml Thiamine HCl (Vitamin B1) 200 mg GT DAILY [facility] Medical Necessity - Tobacco Use Smoking Status: Current every day smoker - Smokes cigarettes. Assessment/Plan All Active Problems Alcohol intoxication (Acute) Pancreatitis (Acute) Alcohol withdrawal (Acute) 47-year-old gentleman with history of alcohol dependence who presented with abdominal pain. Patient was found to be intoxicated with alcohol levels of 465. He was also found to have acute pancreatitis admitted to the intensive care unit for subsequent management 1. Acute alcoholol withdrawal/DT with chronic alcohol use and dependency: Initially, patient was managed with Ativan and then Precedex drip as he continued to be agitated, he was electively intubated. Currently patient is on 30% FiO2. On light sedation. On thiamine and folic acid. The patient was found to have thick secretions the posterior oropharynx which raised the concern for aspiration pneumonia; therefore started on Unasyn. Preliminary sputum Gram stain shows 2+ gram-positive cocci. Chest x-ray shows blunting of left costophrenic angle; may represent either atelectasis or early left basilar infiltrate. Mild hypokalemia: Potassium being monitored and replaced accordingly. 2. Acute alcoholic pancreatitis. Currently on tube feed after intubation. 3. Chronic alcohol dependence with acute intoxication upon presentation 4. Diabetes mellitus type II: uncontrolled. Placed on long acting insulin, Accu-Cheks a.c. and at bedtime and covered with sliding scale insulin 5. Hypertension-blood pressure controlled, home medications continued with dose adjustment as needed 6. Depression with anxiety patient is on SSRI as well as Seroquel 7. Obesity with BMI of 30.2 8. DVT prophylaxis SC heparin Active Medications Bisacodyl (Dulcolax) 5 mg PO DAILY PRN PRN PRN Reason: Constipation Chlorhexidine Gluconate () 1 each TOPICAL DAILY [facility] Last Admin: 12/09/17 04:14 Dose: 1 each Chlorhexidine Gluconate () 15 ml PO BID [facility] Last Admin: 12/08/17 21:18 Dose: 15 ml Dextrose (D50w Syringe) 0 gm IV X1 PRN; Protocol PRN Reason: Hypoglycemia Famotidine (Pepcid) 20 mg GT BID [facility] Last Admin: 12/08/17 21:18 Dose: 20 mg Folic Acid (Folic Acid) 1 mg GT DAILYCM [facility] Glucagon () 1 mg IM .X1 PRN PRN Reason: Hypoglycemia Heparin Sodium (Porcine) (Heparin Na) 5,000 unit SC Q8 [facility] Last Admin: 12/09/17 05:25 Dose: 5,000 unit Ampicillin Sodium/Sulbactam (Sodium 3 gm/ Sodium Chloride) 112 mls @ 150 mls/hr IV Q6 [facility] Last Admin: 12/09/17 05:26 Dose: 150 mls/hr Propofol (Diprivan) 1,000 mg in 100 mls @ 2.946 mls/hr CONT INF .Q12H [facility]; 5 MCG/KG/MIN PRN Reason: Protocol Last Admin: 12/09/17 06:22 Dose: 2.946 mls/hr Fentanyl () 100 mls @ 5 mls/hr IV .Q20H [facility] PRN Reason: Protocol Last Admin: 12/09/17 06:43 Dose: 5 mls/hr Enteral Nutritional Formula (Vital Af 1.2 Alejandro Liquid) 1,000 mls @ 25 mls/hr GT .Q40H [facility] PRN Reason: Protocol Last Admin: 12/08/17 19:32 Dose: 25 mls/hr Potassium Chloride (Kcl 10meq/100ml) 10 meq in 100 mls @ 100 mls/hr IV BOLUS Q1H [facility] Stop: 12/09/17 13:59 Insulin Glargine (Lantus (Bkc)) 25 units SC QHS [facility] Last Admin: 12/08/17 21:18 Dose: 25 units Insulin Human Lispro (Humalog Kwikpen (Bkc)) 0 unit SQ Q6 [facility] PRN Reason: Protocol Last Admin: 12/09/17 05:25 Dose: 2 units Lorazepam (Ativan) 2 mg IV Q2H PRN PRN; Protocol PRN Reason: CIWA score > 8 but <15 Last Admin: 12/08/17 01:54 Dose: 2 mg Lorazepam (Ativan) 2 mg IV UD PRN; Protocol PRN Reason: CIWA score >/=15. Last Admin: 12/08/17 08:10 Dose: 2 mg Lorazepam (Ativan) 2 mg GT Q2H PRN PRN; Protocol PRN Reason: CIWA score > 8 but <15 Lorazepam (Ativan) 2 mg GT UD PRN; Protocol PRN Reason: CIWA score >/=15. Magnesium Hydroxide (Milk Of Magnesia) 30 ml GT DAILY PRN PRN PRN Reason: Constipation Multivitamins (Multivitamin) 1 tablet GT DAILYCM [facility] Nicotine (Nicoderm Cq (Pbkc)) 21 mg TRANSDERM. DAILY [facility] Last Admin: 12/08/17 10:11 Dose: 21 mg Ondansetron HCl (Zofran) 4 mg IV Q6H PRN PRN PRN Reason: NAUSEA/VOMITING Last Admin: 12/08/17 05:14 Dose: 4 mg Senna/Docusate Sodium (Senokot-S, Eugenie-Colace) 2 tablet GT BID [facility] Last Admin: 12/08/17 21:18 Dose: 2 tablet Sodium Chloride () 5 - 30 ml IV UD PRN PRN Reason: SALINE FLUSH Last Admin: 12/08/17 08:10 Dose: 10 ml Thiamine HCl (Vitamin B1) 200 mg GT DAILY [facility] Clinical Impression(s) from Imaging Studies Chest X-Ray 12/08/17 11:00 IMPRESSION: The tip of the endotracheal tube is at 5 cm proximal to the lucila. The tip of the orogastric tube is in the fundal portion of the stomach. Increased markings at the left lung base with blunting of the left costophrenic angle. Microbiology Past 72 Hours 12/08/17 11:07 Sputum, Induced/Lukens Gram Stain - Final Laboratory Results 12/08/17 03:50: Total Creatine Kinase 507 H, Triglycerides 327 H 12/08/17 11:47: POC Glucose 178 H 12/08/17 12:50: Specimen Type ART, Sample Site R Radial, pH 7.46 H, Bicarbonate Actual 27.2 H, POC Total CO2 28, Base Excess 3 H, O2 Saturation 100 H, O2 % 50, ABG pCO2 38.4, ABG pO2 166 H, Willi Test POS, Respiration Rate 14, O2 Delivery Device Vent, Minute Volume 7.00, Vent Mode A-C, Tidal Volume 500, POC PEEP 5, Blood Gas Notified Whom ICU , Blood Gas Notified Time 1247 12/08/17 17:26: POC Glucose 187 H 12/08/17 21:20: POC Glucose 128 H 12/08/17 23:38: POC Glucose 152 H 12/09/17 04:15: WBC 12.7 H, RBC 4.22 L, Hgb 13.4, Hct 38.3 L, MCV 90.8, MCH 31.8, MCHC 35.0, RDW 14.7 H, RDW Differential 48.1 H, Plt Count 156, MPV 10.4 12/09/17 04:15: Sodium 140, Potassium 3.4 L, Chloride 102, Carbon Dioxide 29.0, Anion Gap 9, BUN 10, Creatinine 0.64 L, Estim Creat Clear Calc 153.61, Est GFR (MDRD) Af Amer 174, Est GFR (MDRD) Non-Af 144, BUN/Creatinine Ratio 15.7, Glucose 172 H, Calcium 8.1 L, Magnesium 2.2 12/09/17 04:15: Phosphorus 3.5 12/09/17 04:15: Lipase 537 H 12/09/17 05:25: POC Glucose 191 H Code Visit Inpatient E&M: 73824 Init Hosp L3
--- NOTE | 2017-12-09 08:28 | PN_ITS ---
Patient Problems: Active and Suspected Problems Alcohol intoxication (Acute) Pancreatitis (Acute) Subjective: Patient is intubated on ventilator, 30% FiO2/500 mL tidal volume/03/01. Patient is on propofol and fentanyl drip but currently awake. Vitals/I&O's: Vital Signs Temp Pulse Resp BP Pulse Ox 99.0 F 79 12 110/76 98 12/09/17 04:00 12/09/17 06:30 12/09/17 06:30 12/09/17 06:00 12/09/17 06:30 Oxygen Delivery Method Mechanical Ventilator Weight: 207 lb 14.334 oz Body Mass Index (BMI) 29.9 Intake and Output for Last 24 Hours 12/07/17 12/08/17 12/09/17 23:59 23:59 23:59 Intake Total 4920.2 / 4920.2 4545.1 / 4545.1 1550.1 / 1550.1 Output Total 3200 / 3200 4730 / 4730 500 / 500 Balance 1720.2 / 1720.2 -184.9 / -184.9 1050.1 / 1050.1 General: Lethargic, - - Divided HEENT: Atraumatic, PERRLA, EOMI, Normocephalic Neck: Supple Lungs: Clear to auscultation, No rhonchi, No wheeze, No rales Cardiovascular: Regular rate, Regular Rhythm, Normal S1, No murmurs Abdomen: Bowel Sounds Present, Soft, Tender, - - Old midline surgical scar present in the upper abdomen Skin: No rashes, No breakdown Musculoskeletal: No Tenderness to Palpation of Joints or Extremities Neurological: Cranial nerves II-XII grossly intact, - - Currently on light sedation Microbiology Past 72 Hours 12/08/17 11:07 Sputum, Induced/Lukens Gram Stain - Final Laboratory Results 12/08/17 03:50: Total Creatine Kinase 507 H, Triglycerides 327 H 12/08/17 11:47: POC Glucose 178 H 12/08/17 12:50: Specimen Type ART, Sample Site R Radial, pH 7.46 H, Bicarbonate Actual 27.2 H, POC Total CO2 28, Base Excess 3 H, O2 Saturation 100 H, O2 % 50, ABG pCO2 38.4, ABG pO2 166 H, Willi Test POS, Respiration Rate 14, O2 Delivery Device Vent, Minute Volume 7.00, Vent Mode A-C, Tidal Volume 500, POC PEEP 5, Blood Gas Notified Whom ICU MD, Blood Gas Notified Time 1247 12/08/17 17:26: POC Glucose 187 H 12/08/17 21:20: POC Glucose 128 H 12/08/17 23:38: POC Glucose 152 H 12/09/17 04:15: WBC 12.7 H, RBC 4.22 L, Hgb 13.4, Hct 38.3 L, MCV 90.8, MCH 31.8 , MCHC 35.0, RDW 14.7 H, RDW Differential 48.1 H, Plt Count 156, MPV 10.4 12/09/17 04:15: Sodium 140, Potassium 3.4 L, Chloride 102, Carbon Dioxide 29.0, Anion Gap 9, BUN 10, Creatinine 0.64 L, Estim Creat Clear Calc 153.61, Est GFR ( MDRD) Af Amer 174, Est GFR (MDRD) Non-Af 144, BUN/Creatinine Ratio 15.7, Glucose 172 H, Calcium 8.1 L, Magnesium 2.2 12/09/17 04:15: Phosphorus 3.5 12/09/17 04:15: Lipase 537 H 12/09/17 05:25: POC Glucose 191 H Current Medications Bisacodyl (Dulcolax) 5 mg PO DAILY PRN PRN PRN Reason: Constipation Chlorhexidine Gluconate () 1 each TOPICAL DAILY [facility] Last Admin: 12/09/17 04:14 Dose: 1 each Chlorhexidine Gluconate () 15 ml PO BID [facility] Last Admin: 12/08/17 21:18 Dose: 15 ml Dextrose (D50w Syringe) 0 gm IV X1 PRN; Protocol PRN Reason: Hypoglycemia Famotidine (Pepcid) 20 mg GT BID [facility] Last Admin: 12/08/17 21:18 Dose: 20 mg Folic Acid (Folic Acid) 1 mg GT DAILYCM [facility] Glucagon () 1 mg IM .X1 PRN PRN Reason: Hypoglycemia Heparin Sodium (Porcine) (Heparin Na) 5,000 unit SC Q8 [facility] Last Admin: 12/09/17 05:25 Dose: 5,000 unit Ampicillin Sodium/Sulbactam (Sodium 3 gm/ Sodium Chloride) 112 mls @ 150 mls/ hr IV Q6 [facility] Last Admin: 12/09/17 05:26 Dose: 150 mls/hr Propofol (Diprivan) 1,000 mg in 100 mls @ 2.946 mls/hr CONT INF .Q12H [facility]; 5 MCG/KG/MIN PRN Reason: Protocol Last Admin: 12/09/17 06:22 Dose: 2.946 mls/hr Fentanyl () 100 mls @ 5 mls/hr IV .Q20H [facility] PRN Reason: Protocol Last Admin: 12/09/17 06:43 Dose: 5 mls/hr Enteral Nutritional Formula (Vital Af 1.2 Alejandro Liquid) 1,000 mls @ 25 mls/hr GT .Q40H [facility] PRN Reason: Protocol Last Admin: 12/08/17 19:32 Dose: 25 mls/hr Potassium Chloride (Kcl 10meq/100ml) 10 meq in 100 mls @ 100 mls/hr IV BOLUS Q1H [facility] Stop: 12/09/17 13:59 Insulin Glargine (Lantus (Bkc)) 25 units SC QHS [facility] Last Admin: 12/08/17 21:18 Dose: 25 units Insulin Human Lispro (Humalog Kwikpen (Bkc)) 0 unit SQ Q6 [facility] PRN Reason: Protocol Last Admin: 12/09/17 05:25 Dose: 2 units Lorazepam (Ativan) 2 mg IV Q2H PRN PRN; Protocol PRN Reason: CIWA score > 8 but <15 Last Admin: 12/08/17 01:54 Dose: 2 mg Lorazepam (Ativan) 2 mg IV UD PRN; Protocol PRN Reason: CIWA score >/=15. Last Admin: 12/08/17 08:10 Dose: 2 mg Lorazepam (Ativan) 2 mg GT Q2H PRN PRN; Protocol PRN Reason: CIWA score > 8 but <15 Lorazepam (Ativan) 2 mg GT UD PRN; Protocol PRN Reason: CIWA score >/=15. Magnesium Hydroxide (Milk Of Magnesia) 30 ml GT DAILY PRN PRN PRN Reason: Constipation Multivitamins (Multivitamin) 1 tablet GT DAILYCM [facility] Nicotine (Nicoderm Cq (Pbkc)) 21 mg TRANSDERM. DAILY [facility] Last Admin: 12/08/17 10:11 Dose: 21 mg Ondansetron HCl (Zofran) 4 mg IV Q6H PRN PRN PRN Reason: NAUSEA/VOMITING Last Admin: 12/08/17 05:14 Dose: 4 mg Senna/Docusate Sodium (Senokot-S, Eugenie-Colace) 2 tablet GT BID [facility] Last Admin: 12/08/17 21:18 Dose: 2 tablet Sodium Chloride () 5 - 30 ml IV UD PRN PRN Reason: SALINE FLUSH Last Admin: 12/08/17 08:10 Dose: 10 ml Thiamine HCl (Vitamin B1) 200 mg GT DAILY [facility] Medical Necessity - Tobacco Use Smoking Status: Current every day smoker - Smokes cigarettes. Assessment/Plan All Active Problems Alcohol intoxication (Acute) Pancreatitis (Acute) Alcohol withdrawal (Acute) 47-year-old gentleman with history of alcohol dependence who presented with abdominal pain. Patient was found to be intoxicated with alcohol levels of 465. He was also found to have acute pancreatitis admitted to the intensive care unit for subsequent management 1. Acute alcoholol withdrawal/DT with chronic alcohol use and dependency: Initially, patient was managed with Ativan and then Precedex drip as he continued to be agitated, he was electively intubated. Currently patient is on 30% FiO2. On light sedation. On thiamine and folic acid. The patient was found to have thick secretions the posterior oropharynx which raised the concern for aspiration pneumonia; therefore started on Unasyn. Preliminary sputum Gram stain shows 2+ gram-positive cocci. Chest x-ray shows blunting of left costophrenic angle; may represent either atelectasis or early left basilar infiltrate. Mild hypokalemia: Potassium being monitored and replaced accordingly. 2. Acute alcoholic pancreatitis. Currently on tube feed after intubation. 3. Chronic alcohol dependence with acute intoxication upon presentation 4. Diabetes mellitus type II: uncontrolled. Placed on long acting insulin, Accu-Cheks a.c. and at bedtime and covered with sliding scale insulin 5. Hypertension-blood pressure controlled, home medications continued with dose adjustment as needed 6. Depression with anxiety patient is on SSRI as well as Seroquel 7. Obesity with BMI of 30.2 8. DVT prophylaxis SC heparin Active Medications Bisacodyl (Dulcolax) 5 mg PO DAILY PRN PRN PRN Reason: Constipation Chlorhexidine Gluconate () 1 each TOPICAL DAILY [facility] Last Admin: 12/09/17 04:14 Dose: 1 each Chlorhexidine Gluconate () 15 ml PO BID [facility] Last Admin: 12/08/17 21:18 Dose: 15 ml Dextrose (D50w Syringe) 0 gm IV X1 PRN; Protocol PRN Reason: Hypoglycemia Famotidine (Pepcid) 20 mg GT BID [facility] Last Admin: 12/08/17 21:18 Dose: 20 mg Folic Acid (Folic Acid) 1 mg GT DAILYCM [facility] Glucagon () 1 mg IM .X1 PRN PRN Reason: Hypoglycemia Heparin Sodium (Porcine) (Heparin Na) 5,000 unit SC Q8 [facility] Last Admin: 12/09/17 05:25 Dose: 5,000 unit Ampicillin Sodium/Sulbactam (Sodium 3 gm/ Sodium Chloride) 112 mls @ 150 mls/ hr IV Q6 [facility] Last Admin: 12/09/17 05:26 Dose: 150 mls/hr Propofol (Diprivan) 1,000 mg in 100 mls @ 2.946 mls/hr CONT INF .Q12H [facility]; 5 MCG/KG/MIN PRN Reason: Protocol Last Admin: 12/09/17 06:22 Dose: 2.946 mls/hr Fentanyl () 100 mls @ 5 mls/hr IV .Q20H [facility] PRN Reason: Protocol Last Admin: 12/09/17 06:43 Dose: 5 mls/hr Enteral Nutritional Formula (Vital Af 1.2 Alejandro Liquid) 1,000 mls @ 25 mls/hr GT .Q40H [facility] PRN Reason: Protocol Last Admin: 12/08/17 19:32 Dose: 25 mls/hr Potassium Chloride (Kcl 10meq/100ml) 10 meq in 100 mls @ 100 mls/hr IV BOLUS Q1H [facility] Stop: 12/09/17 13:59 Insulin Glargine (Lantus (Bkc)) 25 units SC QHS [facility] Last Admin: 12/08/17 21:18 Dose: 25 units Insulin Human Lispro (Humalog Kwikpen (Bkc)) 0 unit SQ Q6 [facility] PRN Reason: Protocol Last Admin: 12/09/17 05:25 Dose: 2 units Lorazepam (Ativan) 2 mg IV Q2H PRN PRN; Protocol PRN Reason: CIWA score > 8 but <15 Last Admin: 12/08/17 01:54 Dose: 2 mg Lorazepam (Ativan) 2 mg IV UD PRN; Protocol PRN Reason: CIWA score >/=15. Last Admin: 12/08/17 08:10 Dose: 2 mg Lorazepam (Ativan) 2 mg GT Q2H PRN PRN; Protocol PRN Reason: CIWA score > 8 but <15 Lorazepam (Ativan) 2 mg GT UD PRN; Protocol PRN Reason: CIWA score >/=15. Magnesium Hydroxide (Milk Of Magnesia) 30 ml GT DAILY PRN PRN PRN Reason: Constipation Multivitamins (Multivitamin) 1 tablet GT DAILYCM [facility] Nicotine (Nicoderm Cq (Pbkc)) 21 mg TRANSDERM. DAILY [facility] Last Admin: 12/08/17 10:11 Dose: 21 mg Ondansetron HCl (Zofran) 4 mg IV Q6H PRN PRN PRN Reason: NAUSEA/VOMITING Last Admin: 12/08/17 05:14 Dose: 4 mg Senna/Docusate Sodium (Senokot-S, Eugenie-Colace) 2 tablet GT BID [facility] Last Admin: 12/08/17 21:18 Dose: 2 tablet Sodium Chloride () 5 - 30 ml IV UD PRN PRN Reason: SALINE FLUSH Last Admin: 12/08/17 08:10 Dose: 10 ml Thiamine HCl (Vitamin B1) 200 mg GT DAILY [facility] Clinical Impression(s) from Imaging Studies Chest X-Ray 12/08/17 11:00 IMPRESSION: The tip of the endotracheal tube is at 5 cm proximal to the lucila. The tip of the orogastric tube is in the fundal portion of the stomach. Increased markings at the left lung base with blunting of the left costophrenic angle. Microbiology Past 72 Hours 12/08/17 11:07 Sputum, Induced/Lukens Gram Stain - Final Laboratory Results 12/08/17 03:50: Total Creatine Kinase 507 H, Triglycerides 327 H 12/08/17 11:47: POC Glucose 178 H 12/08/17 12:50: Specimen Type ART, Sample Site R Radial, pH 7.46 H, Bicarbonate Actual 27.2 H, POC Total CO2 28, Base Excess 3 H, O2 Saturation 100 H, O2 % 50, ABG pCO2 38.4, ABG pO2 166 H, Willi Test POS, Respiration Rate 14, O2 Delivery Device Vent, Minute Volume 7.00, Vent Mode A-C, Tidal Volume 500, POC PEEP 5, Blood Gas Notified Whom ICU , Blood Gas Notified Time 1247 12/08/17 17:26: POC Glucose 187 H 12/08/17 21:20: POC Glucose 128 H 12/08/17 23:38: POC Glucose 152 H 12/09/17 04:15: WBC 12.7 H, RBC 4.22 L, Hgb 13.4, Hct 38.3 L, MCV 90.8, MCH 31.8 , MCHC 35.0, RDW 14.7 H, RDW Differential 48.1 H, Plt Count 156, MPV 10.4 12/09/17 04:15: Sodium 140, Potassium 3.4 L, Chloride 102, Carbon Dioxide 29.0, Anion Gap 9, BUN 10, Creatinine 0.64 L, Estim Creat Clear Calc 153.61, Est GFR ( MDRD) Af Amer 174, Est GFR (MDRD) Non-Af 144, BUN/Creatinine Ratio 15.7, Glucose 172 H, Calcium 8.1 L, Magnesium 2.2 12/09/17 04:15: Phosphorus 3.5 12/09/17 04:15: Lipase 537 H 12/09/17 05:25: POC Glucose 191 H Code Visit Inpatient E&M: 17105 Init Hosp L3
--- NOTE | 2017-12-09 09:35 | CASEMGMT ---
Pt is still on a vent at this time. SW will follow up w/pt regarding resources for alcohol abuse once appropriate. BARRINGTON Junior, HELP DESK COORDINATOR
[2017-12-09] MEDS: Folic Acid 1 MG Tablet GT (09:39)
[2017-12-09] MEDS: Famotidine 20 MG Tablet GT ×2 (09:39→21:51)
[2017-12-09] MEDS: Multivitamins,Therapeutic Tablet 1 TABLET GT (09:40)
[2017-12-09] MEDS: Chlorhexidine 15 ML PO ×2 (09:42→21:50)
[2017-12-09] MEDS: Thiamine Hydrochloride 100 MG Tablet 200 MG GT (09:43)
[2017-12-09] MEDS: Senna/Docusate Sodium 1 Tablet 2 TABLET GT ×2 (09:43→21:51)
[2017-12-09 10:38] LABS: M R Staph aureus DNA By PCR Negative (Negative); Probe Check PASS; Specimen Processing Control PASS
[2017-12-09 11:46] LABS: Bedside Glucose 164 mg/dL (70-110)
--- NOTE | 2017-12-09 15:52 | CASEMGMT ---
ARTURO GARCIA NOTE: Received voicemail message from BEN Clarke, @ [email or web address] @ [phone] re: discharge plan. ARTURO GARCIA returned call to her and message left stating discharge plan undetermined at this time as pt is still intubated. Call back number for this ARTURO GARCIA left as well. Teto GLOVER RN, CM
[2017-12-09] MEDS: Vital AF 1.2 Cal Liquid 1,000 ML 25 ML GT (18:17)
[2017-12-09 18:31] LABS: Bedside Glucose 164 mg/dL (70-110)
[2017-12-09] MEDS: LORazepam 2 MG/ML Syringe IV (23:46)
[2017-12-09] MEDS: 0.9% NaCl Peripheral Flush Adult/Peds IV (23:47)
[2017-12-10] VITALS (33 sets, daily range): BP systolic 99–138; BP diastolic 66–97; PULSE 57–91; RESP 12–21; TEMP 36.8–37.6; O2SAT 92–100
[2017-12-10 00:16] LABS: Bedside Glucose 190 mg/dL (70-110)
[2017-12-10] MEDS: Propofol 10MG/Ml 1,000 MG/100 ML Bottle 2.946 MG CONT INF ×7 (01:19→22:18)
[2017-12-10] MEDS: CHLORHEXIDINE GLUC 2% CLOTH 1 EACH TOWELETTE TOPICAL (04:20)
[2017-12-10] MEDS: 0.9% NaCl Peripheral Flush Adult/Peds IV ×3 (04:49→19:51)
[2017-12-10] MEDS: LORazepam 2 MG/ML Syringe IV ×3 (04:49→19:50)
[2017-12-10] MEDS: Heparin Injection (Vial) 5,000 UNIT/ML VIAL 5000 UNIT SC ×3 (05:13→21:47)
[2017-12-10 05:37] LABS: Anion Gap 7 (5-15); BUN 12 mg/dL (7-18); BUN/Creat Ratio 16.7 RATIO (10-20); Calcium,Total 8.4 mg/dL (8.5-10.1); Chloride 103 mmol/L (98-107); Creatinine, Serum 0.72 mg/dL (0.70-1.30); EST Glomerular Filtration Rate 125 mL/min (>60); Est Glom Filt Rate - Afr Amer 151 mL/min (>60); Estimated Creatinine Clearance 136.54 ml/min; Glucose 133 mg/dL (74-106); Sodium Level 143 mmol/L (136-145)
[2017-12-10 05:51] LABS: Bedside Glucose 129 mg/dL (70-110)
--- NOTE | 2017-12-10 06:58 | PN_ITS ---
Subjective: The patient was seen and examined at the bedside this morning. Events from the last 24 hours have been reviewed. The patient is currently afebrile, hemodynamically stable and maintaining appropriate oxygen saturations with an FiO2 requirement of 30%. The patient continues to experience significant withdrawal symptoms and elevated CIWA scores, despite current sedation regimen. He failed his spontaneous breathing trial this morning. Objective: The patient's most recent lab work, culture data and imaging studies have all been personally reviewed. Sputum Gram stain revealed 1+ staphylococcal species and 3+ Streptococcus group B. General: - - Remains intubated, sedated and mechanically ventilated. HEENT: Atraumatic, PERRLA, Normocephalic Oral: No Gingival or Mucosal Lesions/ Ulcerations, - - Endotracheal and OG tubes remain in place. Neck: Supple, No Nodes, Trachea Midline Lungs: No rhonchi, No wheeze, No rales, Diminished Cardiovascular: Regular rate, Regular Rhythm, Normal S1, Normal S2, No murmurs Abdomen: Bowel Sounds Present, Soft, Non Tender Extremities: No clubbing, No cyanosis, No edema Skin: No breakdown Musculoskeletal: No Tenderness to Palpation of Joints or Extremities, No Muscle Wasting Lymphatic: No Cervical, Supraclavicular, or Inguinal Adenopathy Neurological: - - No focal neurological deficits. Moves all extremities spontaneously. Easily arousable and agitated. Psych/Mental Status: Agitated, Restless Vital Signs Temp Pulse Resp BP Pulse Ox 98.9 F 83 12 110/75 93 12/10/17 04:00 12/10/17 06:00 12/10/17 06:00 12/10/17 06:00 12/10/17 06:00 Oxygen Delivery Method Mechanical Ventilator Weight: 207 lb 14.334 oz Body Mass Index (BMI) 29.9 Intake and Output for Last 24 Hours 12/08/17 12/09/17 12/10/17 23:59 23:59 23:59 Intake Total 4545.1 / 4545.1 5482.3 / 5482.3 797.7 / 797.7 Output Total 4730 / 4730 2625 / 2625 475 / 475 Balance -184.9 / -184.9 2857.3 / 2857.3 322.7 / 322.7 Labs (Last 48 Hours) 12/08/17 12/08/17 12/08/17 03:50 03:50 11:47 WBC RBC Hgb Hct MCV MCH MCHC RDW RDW Differential Plt Count MPV Specimen Type Sample Site pH Bicarbonate Actual POC Total CO2 Base Excess O2 Saturation O2 % ABG pCO2 ABG pO2 Willi Test Respiration Rate O2 Delivery Device Minute Volume Vent Mode Tidal Volume POC PEEP Blood Gas Notified Whom Blood Gas Notified Time Sodium Potassium Chloride Carbon Dioxide Anion Gap BUN Creatinine Estim Creat Clear Calc Est GFR (MDRD) Af Amer Est GFR (MDRD) Non-Af BUN/Creatinine Ratio Glucose Calcium Phosphorus 2.0 L Magnesium Total Creatine Kinase 507 H Triglycerides 327 H Lipase 474 H MRSA (PCR) POC Glucose 178 H 12/08/17 12/08/17 12/08/17 12:50 17:26 21:20 WBC RBC Hgb Hct MCV MCH MCHC RDW RDW Differential Plt Count MPV Specimen Type ART Sample Site R Radial pH 7.46 H Bicarbonate Actual 27.2 H POC Total CO2 28 Base Excess 3 H O2 Saturation 100 H O2 % 50 ABG pCO2 38.4 ABG pO2 166 H Willi Test POS Respiration Rate 14 O2 Delivery Device Vent Minute Volume 7.00 Vent Mode A-C Tidal Volume 500 POC PEEP 5 Blood Gas Notified Whom ICU MD Blood Gas Notified Time 1247 Sodium Potassium Chloride Carbon Dioxide Anion Gap BUN Creatinine Estim Creat Clear Calc Est GFR (MDRD) Af Amer Est GFR (MDRD) Non-Af BUN/Creatinine Ratio Glucose Calcium Phosphorus Magnesium Total Creatine Kinase Triglycerides Lipase MRSA (PCR) POC Glucose 187 H 128 H 12/08/17 12/09/17 12/09/17 23:38 04:15 04:15 WBC 12.7 H RBC 4.22 L Hgb 13.4 Hct 38.3 L MCV 90.8 MCH 31.8 MCHC 35.0 RDW 14.7 H RDW Differential 48.1 H Plt Count 156 MPV 10.4 Specimen Type Sample Site pH Bicarbonate Actual POC Total CO2 Base Excess O2 Saturation O2 % ABG pCO2 ABG pO2 Willi Test Respiration Rate O2 Delivery Device Minute Volume Vent Mode Tidal Volume POC PEEP Blood Gas Notified Whom Blood Gas Notified Time Sodium 140 Potassium 3.4 L Chloride 102 Carbon Dioxide 29.0 Anion Gap 9 BUN 10 Creatinine 0.64 L Estim Creat Clear Calc 153.61 Est GFR (MDRD) Af Amer 174 Est GFR (MDRD) Non-Af 144 BUN/Creatinine Ratio 15.7 Glucose 172 H Calcium 8.1 L Phosphorus Magnesium 2.2 Total Creatine Kinase Triglycerides Lipase MRSA (PCR) POC Glucose 152 H 12/09/17 12/09/17 12/09/17 04:15 04:15 05:25 WBC RBC Hgb Hct MCV MCH MCHC RDW RDW Differential Plt Count MPV Specimen Type Sample Site pH Bicarbonate Actual POC Total CO2 Base Excess O2 Saturation O2 % ABG pCO2 ABG pO2 Willi Test Respiration Rate O2 Delivery Device Minute Volume Vent Mode Tidal Volume POC PEEP Blood Gas Notified Whom Blood Gas Notified Time Sodium Potassium Chloride Carbon Dioxide Anion Gap BUN Creatinine Estim Creat Clear Calc Est GFR (MDRD) Af Amer Est GFR (MDRD) Non-Af BUN/Creatinine Ratio Glucose Calcium Phosphorus 3.5 Magnesium Total Creatine Kinase Triglycerides Lipase 537 H MRSA (PCR) POC Glucose 191 H 12/09/17 12/09/17 12/09/17 08:30 11:43 18:15 WBC RBC Hgb Hct MCV MCH MCHC RDW RDW Differential Plt Count MP Specimen Type Sample Site pH Bicarbonate Actual POC Total CO2 Base Excess O2 Saturation O2 % ABG pCO2 ABG pO2 Willi Test Respiration Rate O2 Delivery Device Minute Volume Vent Mode Tidal Volume POC PEEP Blood Gas Notified Whom Blood Gas Notified Time Sodium Potassium Chloride Carbon Dioxide Anion Gap BUN Creatinine Estim Creat Clear Calc Est GFR (MDRD) Af Amer Est GFR (MDRD) Non-Af BUN/Creatinine Ratio Glucose Calcium Phosphorus Magnesium Total Creatine Kinase Triglycerides Lipase MRSA (PCR) Negative POC Glucose 164 H 164 H 12/09/17 12/10/17 12/10/17 23:00 05:05 05:11 WBC RBC Hgb Hct MCV MCH MCHC RDW RDW Differential Plt Count MPV Specimen Type Sample Site pH Bicarbonate Actual POC Total CO2 Base Excess O2 Saturation O2 % ABG pCO2 ABG pO2 Willi Test Respiration Rate O2 Delivery Device Minute Volume Vent Mode Tidal Volume POC PEEP Blood Gas Notified Whom Blood Gas Notified Time Sodium 143 Potassium 4.0 Chloride 103 Carbon Dioxide 33.0 H Anion Gap 7 BUN 12 Creatinine 0.72 Estim Creat Clear Calc 136.54 Est GFR (MDRD) Af Amer 151 Est GFR (MDRD) Non-Af 125 BUN/Creatinine Ratio 16.7 Glucose 133 H Calcium 8.4 L Phosphorus Magnesium Total Creatine Kinase Triglycerides Lipase MRSA (PCR) POC Glucose 190 H 129 H Microbiology 12/08/17 11:07 Sputum, Induced/Lukens Gram Stain - Final 12/08/17 11:07 Sputum, Induced/Lukens Respiratory Culture - Preliminary Staphylococcus species Streptococcus group B Clinical Impression(s) from Imaging Studies Chest X-Ray 12/08/17 11:00 IMPRESSION: The tip of the endotracheal tube is at 5 cm proximal to the lucila. The tip of the orogastric tube is in the fundal portion of the stomach. Increased markings at the left lung base with blunting of the left costophrenic angle. Electronically Signed: Karan Talbert MD at 11:22 EDT Tel [phone], Service support , Medical Necessity - Tobacco Use Smoking Status: Current every day smoker - Smokes cigarettes. Assessment/Plan All Active Problems Alcohol intoxication (Acute) Pancreatitis (Acute) Alcohol withdrawal (Acute) RECOMMENDATIONS: 1. Continue current supportive measures with mechanical ventilation. 2. Continue propofol and fentanyl for sedation. 3. Continue tube feeds as ordered. 4. Continue thiamine and folate replacement 5. Continue Unasyn, pending finalized infectious workup. 6. Continue appropriate ICU prophylaxis IMPRESSIONS: 1. Acute respiratory failure The patient was electively intubated on December 08, due to profound agitation and delirium in the setting of alcohol withdrawal, which was refractory to the use of Precedex. The patient was noted to have thick, tenacious dried secretions in his posterior oropharynx, raising the concern for aspiration. Therefore, he was placed empirically on Unasyn, pending infectious workup. He will be continued on propofol and fentanyl for sedation, with a goal to maintain a RASS of -1 to 1. We will plan to continue tube feeds as ordered. Plan for daily paired spontaneous awakening and breathing trials. Active withdrawal symptoms currently preclude attempts at liberation from mechanical ventilation. 2. Alcoholic pancreatitis The patient was initially treated with n.p.o. status and supplemental IV fluids. His pain and lipase levels improved. Following intubation, he was started on tube feeds, which he is currently tolerating. 3. Chronic alcohol dependency with acute withdrawal/delirium tremens The patient did have to be electively intubated on December 08, after he developed refractory agitation and delirium. He is currently much more comfortable and is sedated on propofol and fentanyl, which will be continued. Continue thiamine and folate. 4. Diabetes mellitus/hypertension/depression/anxiety tobacco dependency Complicates care, management, recovery and prognosis. Continue Lantus and sliding scale insulin coverage. Continue nicotine replacement therapy. TIME: 35 minutes of critical care time, inclusive of procedures, was spent addressing the patient's acute alcohol withdrawal/delirium tremens, alcoholic pancreatitis , diabetes mellitus, review of all data and collaboration with the care team. ( [id number]) Code Visit 9xxxx: [id number] Critical care first hour
--- NOTE | 2017-12-10 09:34 | PCM.PN.HOSP ---
Patient Problems: Active and Suspected Problems Alcohol intoxication (Acute) Pancreatitis (Acute) Subjective: Overall, patient is still agitated and restless and requires intermittent Ativan even on IV propofol and fentanyl drip. On FiO2 30%. Patient was taking high amount of liquor and currently still on DT with elevated CIWA score Vitals/I&O's: Vital Signs Temp Pulse Resp BP Pulse Ox 98.9 F 74 15 110/75 96 12/10/17 04:00 12/10/17 09:00 12/10/17 09:00 12/10/17 06:00 12/10/17 09:00 Oxygen Delivery Method Mechanical Ventilator Weight: 207 lb 14.334 oz Body Mass Index (BMI) 29.9 Intake and Output for Last 24 Hours 12/08/17 12/09/17 12/10/17 23:59 23:59 23:59 Intake Total 4545.1 / 4545.1 5482.3 / 5482.3 797.7 / 797.7 Output Total 4730 / 4730 2625 / 2625 475 / 475 Balance -184.9 / -184.9 2857.3 / 2857.3 322.7 / 322.7 General: Cooperative, Confused, Disoriented, - - Restless HEENT: Atraumatic, PERRLA, EOMI, Normocephalic Oral: - - With ET tube and OG tube Neck: Supple, No JVD, Negative Carotid Bruits Lungs: Clear to auscultation, No rhonchi, No wheeze, No rales, - - On vent support Cardiovascular: Regular rate, Regular Rhythm, Normal S1, Normal S2, No murmurs Abdomen: Bowel Sounds Present, Soft, Non Tender, Non-Distended Extremities: No edema, Capillary Refill Less than 3 Seconds, Edema, - - Mattson catheter Skin: No rashes, No breakdown Musculoskeletal: No Tenderness to Palpation of Joints or Extremities Neurological: Cranial nerves II-XII grossly intact Psych/Mental Status: Normal Affect, Appropriate Microbiology Past 72 Hours 12/08/17 11:07 Sputum, Induced/Lukens Gram Stain - Final 12/08/17 11:07 Sputum, Induced/Lukens Respiratory Culture - Preliminary Staphylococcus aureus Streptococcus group B Laboratory Results 12/09/17 08:30: MRSA (PCR) Negative 12/09/17 11:43: POC Glucose 164 H 12/09/17 18:15: POC Glucose 164 H 12/09/17 23:00: POC Glucose 190 H 12/10/17 05:05: Sodium 143, Potassium 4.0, Chloride 103, Carbon Dioxide 33.0 H, Anion Gap 7, BUN 12, Creatinine 0.72, Estim Creat Clear Calc 136.54, Est GFR (MDRD) Af Amer 151, Est GFR (MDRD) Non-Af 125, BUN/Creatinine Ratio 16.7, Glucose 133 H, Calcium 8.4 L 12/10/17 05:11: POC Glucose 129 H Current Medications Bisacodyl (Dulcolax) 5 mg PO DAILY PRN PRN PRN Reason: Constipation Chlorhexidine Gluconate () 1 each TOPICAL DAILY [facility] Last Admin: 12/10/17 04:20 Dose: 1 each Chlorhexidine Gluconate () 15 ml PO BID [facility] Last Admin: 12/09/17 21:50 Dose: 15 ml Dextrose (D50w Syringe) 0 gm IV X1 PRN; Protocol PRN Reason: Hypoglycemia Famotidine (Pepcid) 20 mg GT BID [facility] Last Admin: 12/09/17 21:51 Dose: 20 mg Folic Acid (Folic Acid) 1 mg GT DAILYCM [facility] Last Admin: 12/09/17 09:39 Dose: 1 mg Glucagon () 1 mg IM .X1 PRN PRN Reason: Hypoglycemia Heparin Sodium (Porcine) (Heparin Na) 5,000 unit SC Q8 [facility] Last Admin: 12/10/17 05:13 Dose: 5,000 unit Ampicillin Sodium/Sulbactam (Sodium 3 gm/ Sodium Chloride) 112 mls @ 150 mls/hr IV Q6 [facility] Last Admin: 12/10/17 05:12 Dose: 150 mls/hr Propofol (Diprivan) 1,000 mg in 100 mls @ 2.946 mls/hr CONT INF .Q12H [facility]; 5 MCG/KG/MIN PRN Reason: Protocol Last Admin: 12/10/17 08:31 Dose: 2.946 mls/hr Fentanyl () 100 mls @ 5 mls/hr IV .Q20H [facility] PRN Reason: Protocol Last Admin: 12/09/17 23:55 Dose: 5 mls/hr Enteral Nutritional Formula (Vital Af 1.2 Alejandro Liquid) 1,000 mls @ 25 mls/hr GT .Q40H [facility] PRN Reason: Protocol Last Admin: 12/10/17 09:20 Dose: Not Given Insulin Glargine (Lantus (Bkc)) 25 units SC QHS [facility] Last Admin: 12/09/17 23:02 Dose: 25 units Insulin Human Lispro (Humalog Kwikpen (Bkc)) 0 unit SQ Q6 [facility] PRN Reason: Protocol Last Admin: 12/10/17 05:12 Dose: Not Given Lorazepam (Ativan) 2 mg IV Q2H PRN PRN; Protocol PRN Reason: CIWA score > 8 but <15 Last Admin: 12/10/17 09:10 Dose: 2 mg Lorazepam (Ativan) 2 mg IV UD PRN; Protocol PRN Reason: CIWA score >/=15. Last Admin: 12/08/17 08:10 Dose: 2 mg Lorazepam (Ativan) 2 mg GT Q2H PRN PRN; Protocol PRN Reason: CIWA score > 8 but <15 Lorazepam (Ativan) 2 mg GT UD PRN; Protocol PRN Reason: CIWA score >/=15. Magnesium Hydroxide (Milk Of Magnesia) 30 ml GT DAILY PRN PRN PRN Reason: Constipation [facility] Last Admin: 12/09/17 09:40 Dose: 1 tablet Nicotine (Nicoderm Cq (Pbkc)) 21 mg TRANSDERM. DAILY [facility] Last Admin: 12/09/17 09:44 Dose: 21 mg Ondansetron HCl (Zofran) 4 mg IV Q6H PRN PRN PRN Reason: NAUSEA/VOMITING Last Admin: 12/08/17 05:14 Dose: 4 mg Senna/Docusate Sodium (Senokot-S, Eugenie-Colace) 2 tablet GT BID [facility] Last Admin: 12/09/17 21:51 Dose: 2 tablet Sodium Chloride () 5 - 30 ml IV UD PRN PRN Reason: SALINE FLUSH Last Admin: 12/10/17 09:10 Dose: 10 ml Thiamine HCl (Vitamin B1) 200 mg GT DAILY [facility] Last Admin: 12/09/17 09:43 Dose: 200 mg Medical Necessity - Tobacco Use Smoking Status: Current every day smoker - Smokes cigarettes. Assessment/Plan All Active Problems Alcohol intoxication (Acute) Pancreatitis (Acute) Alcohol withdrawal (Acute) 47-year-old gentleman with history of alcohol dependence who presented with abdominal pain. Patient was found to be intoxicated with alcohol levels of 465. He was also found to have acute pancreatitis admitted to the intensive care unit for subsequent management 1. Acute alcohol withdrawal/DT with chronic alcohol use and dependency: Initially, patient was managed with Ativan and then Precedex drip as he continued to be agitated, he was electively intubated. Currently patient is on 30% FiO2. CIWA score is high. Requires intermittent Ativan on top of IV propofol and fentanyl drip. On thiamine and folic acid. Concern of possible aspiration pneumonia: The patient was found to have thick secretions the posterior oropharynx which raised the concern for aspiration pneumonia; therefore started on Unasyn. Preliminary sputum Gram stain shows 2+ gram-positive cocci showing staph aureus and strep group B. Chest x-ray shows blunting of left costophrenic angle; may represent either atelectasis or early left basilar infiltrate. Mild hypokalemia: Potassium being monitored and replaced accordingly. 2. Acute alcoholic pancreatitis. Currently on tube feed after intubation. 3. Chronic alcohol dependence with acute intoxication upon presentation 4. Diabetes mellitus type II: uncontrolled. Placed on long acting insulin, Accu-Cheks a.c. and at bedtime and covered with sliding scale insulin 5. Hypertension-blood pressure controlled, home medications continued with dose adjustment as needed 6. Depression with anxiety patient is on SSRI as well as Seroquel 7. Obesity with BMI of 30.2 8. DVT prophylaxis SC heparin Microbiology Past 72 Hours 12/08/17 11:07 Sputum, Induced/Lukens Gram Stain - Final 12/08/17 11:07 Sputum, Induced/Lukens Respiratory Culture - Preliminary Staphylococcus aureus Streptococcus group B Laboratory Results 12/09/17 08:30: MRSA (PCR) Negative 12/09/17 11:43: POC Glucose 164 H 12/09/17 18:15: POC Glucose 164 H 12/09/17 23:00: POC Glucose 190 H 12/10/17 05:05: Sodium 143, Potassium 4.0, Chloride 103, Carbon Dioxide 33.0 H, Anion Gap 7, BUN 12, Creatinine 0.72, Estim Creat Clear Calc 136.54, Est GFR (MDRD) Af Amer 151, Est GFR (MDRD) Non-Af 125, BUN/Creatinine Ratio 16.7, Glucose 133 H, Calcium 8.4 L 12/10/17 05:11: POC Glucose 129 H Active Medications Bisacodyl (Dulcolax) 5 mg PO DAILY PRN PRN PRN Reason: Constipation Chlorhexidine Gluconate () 1 each TOPICAL DAILY [facility] Last Admin: 12/10/17 04:20 Dose: 1 each Chlorhexidine Gluconate () 15 ml PO BID [facility] Last Admin: 12/09/17 21:50 Dose: 15 ml Dextrose (D50w Syringe) 0 gm IV X1 PRN; Protocol PRN Reason: Hypoglycemia Famotidine (Pepcid) 20 mg GT BID [facility] Last Admin: 12/09/17 21:51 Dose: 20 mg Folic Acid (Folic Acid) 1 mg GT DAILYCM [facility] Last Admin: 12/09/17 09:39 Dose: 1 mg Glucagon () 1 mg IM .X1 PRN PRN Reason: Hypoglycemia Heparin Sodium (Porcine) (Heparin Na) 5,000 unit SC Q8 [facility] Last Admin: 12/10/17 05:13 Dose: 5,000 unit Ampicillin Sodium/Sulbactam (Sodium 3 gm/ Sodium Chloride) 112 mls @ 150 mls/hr IV Q6 [facility] Last Admin: 12/10/17 05:12 Dose: 150 mls/hr Propofol (Diprivan) 1,000 mg in 100 mls @ 2.946 mls/hr CONT INF .Q12H [facility]; 5 MCG/KG/MIN PRN Reason: Protocol Last Admin: 12/10/17 08:31 Dose: 2.946 mls/hr Fentanyl () 100 mls @ 5 mls/hr IV .Q20H [facility] PRN Reason: Protocol Last Admin: 12/09/17 23:55 Dose: 5 mls/hr Enteral Nutritional Formula (Vital Af 1.2 Alejandro Liquid) 1,000 mls @ 25 mls/hr GT .Q40H [facility] PRN Reason: Protocol Last Admin: 12/10/17 09:20 Dose: Not Given Insulin Glargine (Lantus (Bkc)) 25 units SC QHS [facility] Last Admin: 12/09/17 23:02 Dose: 25 units Insulin Human Lispro (Humalog Kwikpen (Bk)) 0 unit SQ Q6 [facility] PRN Reason: Protocol Last Admin: 12/10/17 05:12 Dose: Not Given Lorazepam (Ativan) 2 mg IV Q2H PRN PRN; Protocol PRN Reason: CIWA score > 8 but <15 Last Admin: 12/10/17 09:10 Dose: 2 mg Lorazepam (Ativan) 2 mg IV UD PRN; Protocol PRN Reason: CIWA score >/=15. Last Admin: 12/08/17 08:10 Dose: 2 mg Lorazepam (Ativan) 2 mg GT Q2H PRN PRN; Protocol PRN Reason: CIWA score > 8 but <15 Lorazepam (Ativan) 2 mg GT UD PRN; Protocol PRN Reason: CIWA score >/=15. Magnesium Hydroxide (Milk Of Magnesia) 30 ml GT DAILY PRN PRN PRN Reason: Constipation [facility]) [facility] Last Admin: 12/09/17 09:40 Dose: 1 tablet Nicotine (Nicoderm Cq (Pbkc)) 21 mg TRANSDERM. DAILY [facility] Last Admin: 12/09/17 09:44 Dose: 21 mg Ondansetron HCl (Zofran) 4 mg IV Q6H PRN PRN PRN Reason: NAUSEA/VOMITING Last Admin: 12/08/17 05:14 Dose: 4 mg Senna/Docusate Sodium (Senokot-S, Eugenie-Colace) 2 tablet GT BID [facility] Last Admin: 12/09/17 21:51 Dose: 2 tablet Sodium Chloride () 5 - 30 ml IV UD PRN PRN Reason: SALINE FLUSH Last Admin: 12/10/17 09:10 Dose: 10 ml Thiamine HCl (Vitamin B1) 200 mg GT DAILY [facility] Last Admin: 12/09/17 09:43 Dose: 200 mg This note was generated with [employer] dictation software. Every effort was made to ensure accuracy, however computerized shop mechanic mistakes may persist. Code Visit Inpatient E&M: 77254 Subs Hosp L3
--- NOTE | 2017-12-10 09:39 | PN_ITS ---
Patient Problems: Active and Suspected Problems Alcohol intoxication (Acute) Pancreatitis (Acute) Subjective: Overall, patient is still agitated and restless and requires intermittent Ativan even on IV propofol and fentanyl drip. On FiO2 30%. Patient was taking high amount of liquor and currently still on DT with elevated CIWA score Vitals/I&O's: Vital Signs Temp Pulse Resp BP Pulse Ox 98.9 F 74 15 110/75 96 12/10/17 04:00 12/10/17 09:00 12/10/17 09:00 12/10/17 06:00 12/10/17 09:00 Oxygen Delivery Method Mechanical Ventilator Weight: 207 lb 14.334 oz Body Mass Index (BMI) 29.9 Intake and Output for Last 24 Hours 12/08/17 12/09/17 12/10/17 23:59 23:59 23:59 Intake Total 4545.1 / 4545.1 5482.3 / 5482.3 797.7 / 797.7 Output Total 4730 / 4730 2625 / 2625 475 / 475 Balance -184.9 / -184.9 2857.3 / 2857.3 322.7 / 322.7 General: Cooperative, Confused, Disoriented, - - Restless HEENT: Atraumatic, PERRLA, EOMI, Normocephalic Oral: - - With ET tube and OG tube Neck: Supple, No JVD, Negative Carotid Bruits Lungs: Clear to auscultation, No rhonchi, No wheeze, No rales, - - On vent support Cardiovascular: Regular rate, Regular Rhythm, Normal S1, Normal S2, No murmurs Abdomen: Bowel Sounds Present, Soft, Non Tender, Non-Distended Extremities: No edema, Capillary Refill Less than 3 Seconds, Edema, - - Mattson catheter Skin: No rashes, No breakdown Musculoskeletal: No Tenderness to Palpation of Joints or Extremities Neurological: Cranial nerves II-XII grossly intact Psych/Mental Status: Normal Affect, Appropriate Microbiology Past 72 Hours 12/08/17 11:07 Sputum, Induced/Lukens Gram Stain - Final 12/08/17 11:07 Sputum, Induced/Lukens Respiratory Culture - Preliminary Staphylococcus aureus Streptococcus group B Laboratory Results 12/09/17 08:30: MRSA (PCR) Negative 12/09/17 11:43: POC Glucose 164 H 12/09/17 18:15: POC Glucose 164 H 12/09/17 23:00: POC Glucose 190 H 12/10/17 05:05: Sodium 143, Potassium 4.0, Chloride 103, Carbon Dioxide 33.0 H, Anion Gap 7, BUN 12, Creatinine 0.72, Estim Creat Clear Calc 136.54, Est GFR ( MDRD) Af Amer 151, Est GFR (MDRD) Non-Af 125, BUN/Creatinine Ratio 16.7, Glucose 133 H, Calcium 8.4 L 12/10/17 05:11: POC Glucose 129 H Current Medications Bisacodyl (Dulcolax) 5 mg PO DAILY PRN PRN PRN Reason: Constipation Chlorhexidine Gluconate () 1 each TOPICAL DAILY [facility] Last Admin: 12/10/17 04:20 Dose: 1 each Chlorhexidine Gluconate () 15 ml PO BID [facility] Last Admin: 12/09/17 21:50 Dose: 15 ml Dextrose (D50w Syringe) 0 gm IV X1 PRN; Protocol PRN Reason: Hypoglycemia Famotidine (Pepcid) 20 mg GT BID [facility] Last Admin: 12/09/17 21:51 Dose: 20 mg Folic Acid (Folic Acid) 1 mg GT DAILYCM [facility] Last Admin: 12/09/17 09:39 Dose: 1 mg Glucagon () 1 mg IM .X1 PRN PRN Reason: Hypoglycemia Heparin Sodium (Porcine) (Heparin Na) 5,000 unit SC Q8 [facility] Last Admin: 12/10/17 05:13 Dose: 5,000 unit Ampicillin Sodium/Sulbactam (Sodium 3 gm/ Sodium Chloride) 112 mls @ 150 mls/ hr IV Q6 [facility] Last Admin: 12/10/17 05:12 Dose: 150 mls/hr Propofol (Diprivan) 1,000 mg in 100 mls @ 2.946 mls/hr CONT INF .Q12H [facility]; 5 MCG/KG/MIN PRN Reason: Protocol Last Admin: 12/10/17 08:31 Dose: 2.946 mls/hr Fentanyl () 100 mls @ 5 mls/hr IV .Q20H [facility] PRN Reason: Protocol Last Admin: 12/09/17 23:55 Dose: 5 mls/hr Enteral Nutritional Formula (Vital Af 1.2 Alejandro Liquid) 1,000 mls @ 25 mls/hr GT .Q40H [facility] PRN Reason: Protocol Last Admin: 12/10/17 09:20 Dose: Not Given Insulin Glargine (Lantus (Bkc)) 25 units SC QHS [facility] Last Admin: 12/09/17 23:02 Dose: 25 units Insulin Human Lispro (Humalog Kwikpen (Bkc)) 0 unit SQ Q6 [facility] PRN Reason: Protocol Last Admin: 12/10/17 05:12 Dose: Not Given Lorazepam (Ativan) 2 mg IV Q2H PRN PRN; Protocol PRN Reason: CIWA score > 8 but <15 Last Admin: 12/10/17 09:10 Dose: 2 mg Lorazepam (Ativan) 2 mg IV UD PRN; Protocol PRN Reason: CIWA score >/=15. Last Admin: 12/08/17 08:10 Dose: 2 mg Lorazepam (Ativan) 2 mg GT Q2H PRN PRN; Protocol PRN Reason: CIWA score > 8 but <15 Lorazepam (Ativan) 2 mg GT UD PRN; Protocol PRN Reason: CIWA score >/=15. Magnesium Hydroxide (Milk Of Magnesia) 30 ml GT DAILY PRN PRN PRN Reason: Constipation [facility]ivitamins ([facility]ivitamin) [facility] Last Admin: 12/09/17 09:40 Dose: 1 tablet Nicotine (Nicoderm Cq (Pbkc)) 21 mg TRANSDERM. DAILY [facility] Last Admin: 12/09/17 09:44 Dose: 21 mg Ondansetron HCl (Zofran) 4 mg IV Q6H PRN PRN PRN Reason: NAUSEA/VOMITING Last Admin: 12/08/17 05:14 Dose: 4 mg Senna/Docusate Sodium (Senokot-S, Eugenie-Colace) 2 tablet GT BID [facility] Last Admin: 12/09/17 21:51 Dose: 2 tablet Sodium Chloride () 5 - 30 ml IV UD PRN PRN Reason: SALINE FLUSH Last Admin: 12/10/17 09:10 Dose: 10 ml Thiamine HCl (Vitamin B1) 200 mg GT DAILY [facility] Last Admin: 12/09/17 09:43 Dose: 200 mg Medical Necessity - Tobacco Use Smoking Status: Current every day smoker - Smokes cigarettes. Assessment/Plan All Active Problems Alcohol intoxication (Acute) Pancreatitis (Acute) Alcohol withdrawal (Acute) 47-year-old gentleman with history of alcohol dependence who presented with abdominal pain. Patient was found to be intoxicated with alcohol levels of 465. He was also found to have acute pancreatitis admitted to the intensive care unit for subsequent management 1. Acute alcohol withdrawal/DT with chronic alcohol use and dependency: Initially, patient was managed with Ativan and then Precedex drip as he continued to be agitated, he was electively intubated. Currently patient is on 30% FiO2. CIWA score is high. Requires intermittent Ativan on top of IV propofol and fentanyl drip. On thiamine and folic acid. Concern of possible aspiration pneumonia: The patient was found to have thick secretions the posterior oropharynx which raised the concern for aspiration pneumonia; therefore started on Unasyn. Preliminary sputum Gram stain shows 2+ gram-positive cocci showing staph aureus and strep group B. Chest x-ray shows blunting of left costophrenic angle; may represent either atelectasis or early left basilar infiltrate. Mild hypokalemia: Potassium being monitored and replaced accordingly. 2. Acute alcoholic pancreatitis. Currently on tube feed after intubation. 3. Chronic alcohol dependence with acute intoxication upon presentation 4. Diabetes mellitus type II: uncontrolled. Placed on long acting insulin, Accu-Cheks a.c. and at bedtime and covered with sliding scale insulin 5. Hypertension-blood pressure controlled, home medications continued with dose adjustment as needed 6. Depression with anxiety patient is on SSRI as well as Seroquel 7. Obesity with BMI of 30.2 8. DVT prophylaxis SC heparin Microbiology Past 72 Hours 12/08/17 11:07 Sputum, Induced/Lukens Gram Stain - Final 12/08/17 11:07 Sputum, Induced/Lukens Respiratory Culture - Preliminary Staphylococcus aureus Streptococcus group B Laboratory Results 12/09/17 08:30: MRSA (PCR) Negative 12/09/17 11:43: POC Glucose 164 H 12/09/17 18:15: POC Glucose 164 H 12/09/17 23:00: POC Glucose 190 H 12/10/17 05:05: Sodium 143, Potassium 4.0, Chloride 103, Carbon Dioxide 33.0 H, Anion Gap 7, BUN 12, Creatinine 0.72, Estim Creat Clear Calc 136.54, Est GFR ( MDRD) Af Amer 151, Est GFR (MDRD) Non-Af 125, BUN/Creatinine Ratio 16.7, Glucose 133 H, Calcium 8.4 L 12/10/17 05:11: POC Glucose 129 H Active Medications Bisacodyl (Dulcolax) 5 mg PO DAILY PRN PRN PRN Reason: Constipation Chlorhexidine Gluconate () 1 each TOPICAL DAILY [facility] Last Admin: 12/10/17 04:20 Dose: 1 each Chlorhexidine Gluconate () 15 ml PO BID [facility] Last Admin: 12/09/17 21:50 Dose: 15 ml Dextrose (D50w Syringe) 0 gm IV X1 PRN; Protocol PRN Reason: Hypoglycemia Famotidine (Pepcid) 20 mg GT BID [facility] Last Admin: 12/09/17 21:51 Dose: 20 mg Folic Acid (Folic Acid) 1 mg GT DAILYCM [facility] Last Admin: 12/09/17 09:39 Dose: 1 mg Glucagon () 1 mg IM .X1 PRN PRN Reason: Hypoglycemia Heparin Sodium (Porcine) (Heparin Na) 5,000 unit SC Q8 [facility] Last Admin: 12/10/17 05:13 Dose: 5,000 unit Ampicillin Sodium/Sulbactam (Sodium 3 gm/ Sodium Chloride) 112 mls @ 150 mls/ hr IV Q6 [facility] Last Admin: 12/10/17 05:12 Dose: 150 mls/hr Propofol (Diprivan) 1,000 mg in 100 mls @ 2.946 mls/hr CONT INF .Q12H [facility]; 5 MCG/KG/MIN PRN Reason: Protocol Last Admin: 12/10/17 08:31 Dose: 2.946 mls/hr Fentanyl () 100 mls @ 5 mls/hr IV .Q20H [facility] PRN Reason: Protocol Last Admin: 12/09/17 23:55 Dose: 5 mls/hr Enteral Nutritional Formula (Vital Af 1.2 Alejandro Liquid) 1,000 mls @ 25 mls/hr GT .Q40H [facility] PRN Reason: Protocol Last Admin: 12/10/17 09:20 Dose: Not Given Insulin Glargine (Lantus (Bkc)) 25 units SC QHS [facility] Last Admin: 12/09/17 23:02 Dose: 25 units Insulin Human Lispro (Humalog Kwikpen (Bk)) 0 unit SQ Q6 [facility] PRN Reason: Protocol Last Admin: 12/10/17 05:12 Dose: Not Given Lorazepam (Ativan) 2 mg IV Q2H PRN PRN; Protocol PRN Reason: CIWA score > 8 but <15 Last Admin: 12/10/17 09:10 Dose: 2 mg Lorazepam (Ativan) 2 mg IV UD PRN; Protocol PRN Reason: CIWA score >/=15. Last Admin: 12/08/17 08:10 Dose: 2 mg Lorazepam (Ativan) 2 mg GT Q2H PRN PRN; Protocol PRN Reason: CIWA score > 8 but <15 Lorazepam (Ativan) 2 mg GT UD PRN; Protocol PRN Reason: CIWA score >/=15. Magnesium Hydroxide (Milk Of Magnesia) 30 ml GT DAILY PRN PRN PRN Reason: Constipation Multivitamins (Multivitamin) [facility] Last Admin: 12/09/17 09:40 Dose: 1 tablet Nicotine (Nicoderm Cq (Pbkc)) 21 mg TRANSDERM. DAILY [facility] Last Admin: 12/09/17 09:44 Dose: 21 mg Ondansetron HCl (Zofran) 4 mg IV Q6H PRN PRN PRN Reason: NAUSEA/VOMITING Last Admin: 12/08/17 05:14 Dose: 4 mg Senna/Docusate Sodium (Senokot-S, Eugenie-Colace) 2 tablet GT BID [facility] Last Admin: 12/09/17 21:51 Dose: 2 tablet Sodium Chloride () 5 - 30 ml IV UD PRN PRN Reason: SALINE FLUSH Last Admin: 12/10/17 09:10 Dose: 10 ml Thiamine HCl (Vitamin B1) 200 mg GT DAILY [facility] Last Admin: 12/09/17 09:43 Dose: 200 mg This note was generated with [employer] dictation software. Every effort was made to ensure accuracy, however computerized retail sales representative mistakes may persist. Code Visit Inpatient E&M: 16153 Subs Hosp L3
[2017-12-10] MEDS: Senna/Docusate Sodium 1 Tablet 2 TABLET GT ×2 (10:31→21:48)
[2017-12-10] MEDS: Folic Acid 1 MG Tablet GT (10:31)
[2017-12-10] MEDS: Thiamine Hydrochloride 100 MG Tablet 200 MG GT (10:31)
[2017-12-10] MEDS: Famotidine 20 MG Tablet GT ×2 (10:31→21:48)
[2017-12-10] MEDS: Multivitamins,Therapeutic Tablet 1 TABLET GT (10:31)
--- NOTE | 2017-12-10 11:51 | CASEMGMT ---
SOCIAL WORK: Chart reviewed. Patient failed spontaneous breathing trial and continues to require mechanical ventilation with Propofol and Fentanyl. Discharge needs uncertain at this time. Social work will continue to follow and assess. MONY Shaw
[2017-12-10] MEDS: Chlorhexidine 15 ML PO ×2 (12:02→21:47)
[2017-12-10] MEDS: Insulin Lispro 100 UNIT/ML INSULN.PEN SQ ×2 (12:08→23:08)
[2017-12-10 12:10] LABS: Bedside Glucose 198 mg/dL (70-110)
[2017-12-10] MEDS: Vital AF 1.2 Cal Liquid 1,000 ML 25 ML GT (16:11)
[2017-12-10 19:01] LABS: Bedside Glucose 143 mg/dL (70-110)
[2017-12-10 22:11] LABS: Bedside Glucose 168 mg/dL (70-110)
[2017-12-10 23:16] LABS: Bedside Glucose 187 mg/dL (70-110)
[2017-12-11] VITALS (39 sets, daily range): BP systolic 90–143; BP diastolic 65–105; PULSE 57–70; RESP 12–17; TEMP 36.7–37.1; O2SAT 92–97
[2017-12-11] MEDS: Propofol 10MG/Ml 1,000 MG/100 ML Bottle 2.946 MG CONT INF ×6 (01:46→20:06)
[2017-12-11] MEDS: CHLORHEXIDINE GLUC 2% CLOTH 1 EACH TOWELETTE TOPICAL (02:45)
--- NOTE | 2017-12-11 04:24 | NURSING ---
At 0400 patient was RASS -1 resting relaxed and calm in bed, propofol and fentanyl was placed on hold. At 0415 patient became restless and agitated, thrashing in bed, and attempting to pull out ETT, propofol and fentanyl restarted.
[2017-12-11 04:25] LABS: Absolute Lymphocyte Count 3.23 X10^3/ul (0.83-4.51); Absolute Neutrophil Count 3.3 X10^3/uL (2.0-7.7); Basophil# 0.05 X10^3/uL; Basophil% 0.6 % (0-1); Eosinophil# 0.43 X10^3/uL; Eosinophils% 5.5 % (0-5); Hemoglobin 11.7 g/dl (13.0-16.5); Lymphocyte # 3.23 X10^3/ul (4.0); Lymphocyte % 41.3 % (19-41); Mean Corp Hgb Conc 32.5 g/gl (32-36); Mean Corpuscular Hgb 30.9 pg (27.0-32.0); Monocyte% 10.2 % (0-10); Neutrophil % 42.1 % (47-70); POSITIVE COUNT NO; POSITIVE DIFFERENTIAL NO; POSITIVE MORPHOLOGY NO; Platelet Count 155 K/mm3 (150-450); RBC Distribution Width CV 15.6 % (11.6-14.6); RBC Distribution Width SD 53.8 fl (35.1-43.9); Red Blood Count 3.79 M/mm3 (4.6-6.2); White Blood Count 7.8 K/mm3 (4.4-11.0)
[2017-12-11] MEDS: Heparin Injection (Vial) 5,000 UNIT/ML VIAL 5000 UNIT SC ×3 (05:00→22:20)
[2017-12-11] MEDS: Insulin Lispro 100 UNIT/ML INSULN.PEN SQ ×4 (05:00→23:10)
[2017-12-11 05:01] LABS: Bedside Glucose 172 mg/dL (70-110)
[2017-12-11 05:20] LABS: Anion Gap 9 (5-15); BUN 10 mg/dL (7-18); BUN/Creat Ratio 15.6 RATIO (10-20); Calcium,Total 8.4 mg/dL (8.5-10.1); Chloride 106 mmol/L (98-107); Creatinine, Serum 0.64 mg/dL (0.70-1.30); EST Glomerular Filtration Rate 142 mL/min (>60); Est Glom Filt Rate - Afr Amer 172 mL/min (>60); Estimated Creatinine Clearance 153.61 ml/min; Glucose 193 mg/dL (74-106); Magnesium 2.2 mg/dL (1.6-2.6); Phosphorus 4.3 mg/dL (2.5-4.9); Potassium 3.6 mmol/L (3.5-5.1); Sodium Level 146 mmol/L (136-145)
[2017-12-11] MEDS: Vital AF 1.2 Cal Liquid 1,000 ML 25 ML GT ×2 (05:57→19:26)
[2017-12-11] MEDS: LORazepam 2 MG/ML Syringe IV (06:01)
--- NOTE | 2017-12-11 06:49 | PCM.PN.INT ---
Subjective: Patient did okay overnight. Patient did fail his SAT this morning, so no spontaneous breathing trial was attempted. Patient remains on high sedation, but continually attempts to extubate himself. Patient has been noted to have several PVCs overnight, but electrolytes were acceptable. No fever is been reported. Patient tolerating tube feeds. General: - - Intubated and sedated. RASS -2. Appears older than stated age. No jaundice appreciated. HEENT: Atraumatic, PERRLA, EOMI, Normocephalic, - - No scleral icterus or injection noted. Oral: Moist Mucosa, No Gingival or Mucosal Lesions/ Ulcerations Neck: Supple, No JVD, No Nodes, Trachea Midline Lungs: Clear to auscultation, Normal air movement, No rhonchi, No wheeze, No rales Cardiovascular: Regular rate, Regular Rhythm, Normal S1, Normal S2, No murmurs, No rub noted, No Gallop Abdomen: Bowel Sounds Present, Soft, Non Tender, Non-Distended Extremities: No clubbing, No cyanosis, Edema Skin: No rashes, No breakdown Musculoskeletal: No Tenderness to Palpation of Joints or Extremities Lymphatic: No Cervical, Supraclavicular, or Inguinal Adenopathy Neurological: Cranial nerves II-XII grossly intact, Neuro grossly intact, Motor Exam 5/5 strength throughout Psych/Mental Status: Flat Affect Vital Signs Temp Pulse Resp BP Pulse Ox 36.7 C 59 L 13 96/69 97 12/11/17 00:00 12/11/17 06:00 12/11/17 06:00 12/11/17 06:00 12/11/17 06:00 Oxygen Delivery Method Mechanical Ventilator Weight: 98.1 kg Body Mass Index (BMI) 29.9 Intake and Output for Last 24 Hours 12/09/17 12/10/17 12/11/17 23:59 23:59 23:59 Intake Total 5482.3 / 5482.3 3126.7 / 3126.7 2156.6 / 2156.6 Output Total 2625 / 2625 2225 / 2225 1200 / 1200 Balance 2857.3 / 2857.3 901.7 / 901.7 956.6 / 956.6 Labs (Last 48 Hours) 12/09/17 12/09/17 12/09/17 04:15 08:30 11:43 WBC RBC Hgb Hct MCV MCH MCHC RDW RDW Differential Plt Count MPV Immature Gran % (Auto) Neut % (Auto) Lymph % (Auto) [place] % (Auto) Eos % (Auto) Baso % (Auto) Absolute Neuts (auto) Absolute Lymphs (auto) Total Counted Sodium Potassium Chloride Carbon Dioxide Anion Gap BUN Creatinine Estim Creat Clear Calc Est GFR (MDRD) Af Amer Est GFR (MDRD) Non-Af BUN/Creatinine Ratio Glucose Calcium Phosphorus Magnesium Lipase 537 H MRSA (PCR) Negative POC Glucose 164 H 18 12/09/17 12/10/17 18:15 23:00 05:05 WBC RBC Hgb Hct MCV MCH MCHC RDW RDW Differential Plt Count MPV Immature Gran % (Auto) Neut % (Auto) Lymph % (Auto) [place] % (Auto) Eos % (Auto) Baso % (Auto) Absolute Neuts (auto) Absolute Lymphs (auto) Total Counted Sodium 143 Potassium 4.0 Chloride 103 Carbon Dioxide 33.0 H Anion Gap 7 BUN 12 Creatinine 0.72 Estim Creat Clear Calc 136.54 Est GFR (MDRD) Af Amer 151 Est GFR (MDRD) Non-Af 125 BUN/Creatinine Ratio 16.7 Glucose 133 H Calcium 8.4 L Phosphorus Magnesium Lipase MRSA (PCR) POC Glucose 164 H 190 H 12/10/17 12/10/17 12/10/17 05:11 12:08 18:54 WBC RBC Hgb Hct MCV MCH MCHC RDW RDW Differential Plt Count MPV Immature Gran % (Auto) Neut % (Auto) Lymph % (Auto) [place] % (Auto) Eos % (Auto) Baso % (Auto) Absolute Neuts (auto) Absolute Lymphs (auto) Total Counted Sodium Potassium Chloride Carbon Dioxide Anion Gap BUN Creatinine Estim Creat Clear Calc Est GFR (MDRD) Af Amer Est GFR (MDRD) Non-Af BUN/Creatinine Ratio Glucose Calcium Phosphorus Magnesium Lipase MRSA (PCR) POC Glucose 129 H 198 H 143 H 12/10/17 12/10/17 12/11/17 21:55 23:07 04:10 WBC 7.8 RBC 3.79 L Hgb 11.7 L Hct 36.0 L MCV 95.0 H MCH 30.9 MCHC 32.5 RDW 15.6 H RDW Differential 53.8 H Plt Count 155 MPV 10.0 Immature Gran % (Auto) 0.300 Neut % (Auto) 42.1 L Lymph % (Auto) 41.3 H [place] % (Auto) 10.2 H Eos % (Auto) 5.5 H Baso % (Auto) 0.6 Absolute Neuts (auto) 3.3 Absolute Lymphs (auto) 3.23 Total Counted Not Reportable Sodium Potassium Chloride Carbon Dioxide Anion Gap BUN Creatinine Estim Creat Clear Calc Est GFR (MDRD) Af Amer Est GFR (MDRD) Non-Af BUN/Creatinine Ratio Glucose Calcium Phosphorus Magnesium Lipase MRSA (PCR) POC Glucose 168 H 187 H 12/11/17 12/11/17 04:10 04:54 WBC RBC Hgb Hct MCV MCH MCHC RDW RDW Differential Plt Count MPV Immature Gran % (Auto) Neut % (Auto) Lymph % (Auto) [place] % (Auto) Eos % (Auto) Baso % (Auto) Absolute Neuts (auto) Absolute Lymphs (auto) Total Counted Sodium 146 H Potassium 3.6 Chloride 106 Carbon Dioxide 31.0 Anion Gap 9 BUN 10 Creatinine 0.64 L Estim Creat Clear Calc 153.61 Est GFR (MDRD) Af Amer 172 Est GFR (MDRD) Non-Af 142 BUN/Creatinine Ratio 15.6 Glucose 193 H Calcium 8.4 L Phosphorus 4.3 Magnesium 2.2 Lipase MRSA (PCR) POC Glucose 172 H Microbiology 12/08/17 11:07 Sputum, Induced/Lukens Gram Stain - Final 12/08/17 11:07 Sputum, Induced/Lukens Respiratory Culture - Preliminary Staphylococcus aureus Streptococcus group B Medical Necessity - Tobacco Use Smoking Status: Current every day smoker - Smokes cigarettes. Assessment/Plan All Active Problems Alcohol intoxication (Acute) Pancreatitis (Acute) Alcohol withdrawal (Acute) RECOMMENDATIONS: 1. Continue current supportive measures with mechanical ventilation. 2. Continue propofol and fentanyl for sedation. Add Librium and Precedex 3. Continue tube feeds as ordered. 4. Okay to discontinue thiamine and folate given 5 days replacement 5. Continue Unasyn, pending finalized infectious workup. 6. Continue appropriate ICU prophylaxis IMPRESSIONS: 1. Acute respiratory failure Patient continues to be very difficult to sedate. Patient currently on propofol at high doses, despite the use of supplemental Ativan therapy. Patient is also on a fentanyl drip. Patient unable to have a spontaneous breathing trial this morning, but oxygenating well. Patient does have staph and strep growing in his sputum and is on Unasyn therapy. Will attempt to transition to Precedex therapy. Add Librium. 2. Alcoholic pancreatitis The patient was initially treated with n.p.o. status and supplemental IV fluids. His pain and lipase levels improved. Following intubation, he was started on tube feeds, which he is currently tolerating. 3. Chronic alcohol dependency with acute withdrawal/delirium tremens The patient did have to be electively intubated on December 08, after he developed refractory agitation and delirium. Patient is still having significant difficulty with agitation. It is unclear how much of this is related to active withdrawal and how much is related to intolerance of the endotracheal tube. Will attempt to transition to Precedex therapy with Librium to allow for dissociative effect. 4. Diabetes mellitus/hypertension/depression/anxiety tobacco dependency Complicates care, management, recovery and prognosis. Continue Lantus and sliding scale insulin coverage. Continue nicotine replacement therapy. TIME: 34 minutes of critical care time, inclusive of procedures, was spent addressing the patient's acute alcohol withdrawal/delirium tremens, alcoholic pancreatitis, diabetes mellitus, review of all data and collaboration with the care team. (6 AM to 7 AM) Code Visit 9xxxx: [id number] Critical care first hour
[2017-12-11] MEDS: Multivitamins,Therapeutic Tablet 1 TABLET GT (08:30)
[2017-12-11] MEDS: chlordiazePOXIDE 25 MG Capsule GT ×3 (08:30→22:19)
[2017-12-11] MEDS: 0.9% NaCl Peripheral Flush Adult/Peds IV ×3 (08:39→14:04)
[2017-12-11] MEDS: Chlorhexidine 15 ML PO ×2 (10:11→22:20)
[2017-12-11] MEDS: Famotidine 20 MG Tablet GT ×2 (10:12→22:19)
[2017-12-11] MEDS: Senna/Docusate Sodium 1 Tablet 2 TABLET GT ×2 (10:12→22:19)
--- NOTE | 2017-12-11 11:54 | PCM.RX.CS ---
Consult Pharmacy has been consulted to manage selected antiobiotic: Vancomycin Type of Consult: New start Suspected Infection: Other Labs: Sodium 146 mmol/L (136-145) H 12/11/17 04:10 Potassium 3.6 mmol/L (3.5-5.1) 12/11/17 04:10 Chloride 106 mmol/L (98-107) 12/11/17 04:10 Carbon Dioxide 31.0 mmol/L (21.0-32.0) 12/11/17 04:10 Anion Gap 9 (5-15) 12/11/17 04:10 BUN 10 mg/dL (7-18) 12/11/17 04:10 Creatinine 0.64 mg/dL (0.70-1.30) L 12/11/17 04:10 Est GFR (MDRD) Af Amer 172 mL/min (>60) 12/11/17 04:10 Est GFR (MDRD) Non-Af 142 mL/min (>60) 12/11/17 04:10 BUN/Creatinine Ratio 15.6 RATIO (10-20) 12/11/17 04:10 Glucose 193 mg/dL (74-106) H 12/11/17 04:10 Microbiology: Microbiology 12/08/17 11:07 Sputum, Induced/Lukens Gram Stain - Final 12/08/17 11:07 Sputum, Induced/Lukens Respiratory Culture - Final Meth. resistant Staph. aureus Streptococcus agalactiae (B) Weight used for dosin.1 kg Estimated Creatinine Clearance: 154 ML/MIN Goal Trough: 15-20 mcg/mL Pharmacy Plan for Drug Dosing: Load with 2000mg IV x1, then continue with 1250mg IV q8h. Obtain trough before the 4th total dose. Pharmacy Service will continue to monitor and adjust dosing as required. Follow-Up Labs: Trough Vancomycin Labs to be done on [date and time ordered]: 12/12/17 at 10:30 before the dose at 11:00
[2017-12-11 11:55] LABS: Bedside Glucose 160 mg/dL (70-110)
--- NOTE | 2017-12-11 11:55 | PCM.PN.HOSP ---
Patient Problems: Active and Suspected Problems Alcohol intoxication (Acute) Pancreatitis (Acute) Subjective: Patient is still intubated. Patient has been agitated and required intermittent Ativan even on high-dose propofol and fentanyl drip. Started on Precedex drip in the morning. Currently being sedated. Patient had PVCs intermittently last night. Vitals/I&O's: Vital Signs Temp Pulse Resp BP Pulse Ox 98.7 F 62 15 126/91 H 96 12/11/17 10:00 12/11/17 11:15 12/11/17 11:00 12/11/17 11:00 12/11/17 11:00 Oxygen Delivery Method Mechanical Ventilator Weight: 216 lb 4.375 oz Body Mass Index (BMI) 29.9 Intake and Output for Last 24 Hours 12/09/17 12/10/17 12/11/17 23:59 23:59 23:59 Intake Total 5482.3 / 5482.3 3126.7 / 3126.7 2386.6 / 2386.6 Output Total 2625 / 2625 2225 / 2225 1200 / 1200 Balance 2857.3 / 2857.3 901.7 / 901.7 1186.6 / 1186.6 General: - - Sedated on propofol, fentanyl and Precedex drip HEENT: Atraumatic, PERRLA, EOMI, Normocephalic Neck: Supple, No JVD, Negative Carotid Bruits Lungs: No rhonchi, No wheeze, - - On vent support Cardiovascular: Regular rate, Normal S1, Normal S2, No murmurs, - - PVCs on monitor Abdomen: Bowel Sounds Present, Soft, Non Tender Extremities: Capillary Refill Less than 3 Seconds, Edema Skin: No rashes, No breakdown Musculoskeletal: No Tenderness to Palpation of Joints or Extremities Neurological: Cranial nerves II-XII grossly intact Psych/Mental Status: Normal Affect, Appropriate Microbiology Past 72 Hours 12/08/17 11:07 Sputum, Induced/Lukens Gram Stain - Final 12/08/17 11:07 Sputum, Induced/Lukens Respiratory Culture - Final Meth. resistant Staph. aureus Streptococcus agalactiae (B) Laboratory Results 12/10/17 12:08: POC Glucose 198 H 12/10/17 18:54: POC Glucose 143 H 12/10/17 21:55: POC Glucose 168 H 12/10/17 23:07: POC Glucose 187 H 12/11/17 04:10: WBC 7.8, RBC 3.79 L, Hgb 11.7 L, Hct 36.0 L, MCV 95.0 H, MCH 30.9, MCHC 32.5, RDW 15.6 H, RDW Differential 53.8 H, Plt Count 155, MPV 10.0, Immature Gran % (Auto) 0.300, Neut % (Auto) 42.1 L, Lymph % (Auto) 41.3 H, [place] % (Auto) 10.2 H, Eos % (Auto) 5.5 H, Baso % (Auto) 0.6, Absolute Neuts (auto) 3.3, Absolute Lymphs (auto) 3.23, Total Counted Not Reportable 12/11/17 04:10: Sodium 146 H, Potassium 3.6, Chloride 106, Carbon Dioxide 31.0, Anion Gap 9, BUN 10, Creatinine 0.64 L, Estim Creat Clear Calc 153.61, Est GFR (MDRD) Af Amer 172, Est GFR (MDRD) Non-Af 142, BUN/Creatinine Ratio 15.6, Glucose 193 H, Calcium 8.4 L, Phosphorus 4.3, Magnesium 2.2 12/11/17 04:54: POC Glucose 172 H Current Medications Bisacodyl (Dulcolax) 5 mg PO DAILY PRN PRN PRN Reason: Constipation Chlordiazepoxide (Librium) 25 mg GT Q8 [facility] Last Admin: 12/11/17 08:30 Dose: 25 mg Chlorhexidine Gluconate () 1 each TOPICAL DAILY [facility] Last Admin: 12/11/17 02:45 Dose: 1 each Chlorhexidine Gluconate () 15 ml PO BID [facility] Last Admin: 12/11/17 10:11 Dose: 15 ml Dextrose (D50w Syringe) 0 gm IV X1 PRN; Protocol PRN Reason: Hypoglycemia Famotidine (Pepcid) 20 mg GT BID [facility] Last Admin: 12/11/17 10:12 Dose: 20 mg Glucagon () 1 mg IM .X1 PRN PRN Reason: Hypoglycemia Heparin Sodium (Porcine) (Heparin Na) 5,000 unit SC Q8 [facility] Last Admin: 12/11/17 05:00 Dose: 5,000 unit Propofol (Diprivan) 1,000 mg in 100 mls @ 2.946 mls/hr CONT INF .Q12H [facility]; 5 MCG/KG/MIN PRN Reason: Protocol Last Admin: 12/11/17 08:54 Dose: 2.946 mls/hr Fentanyl () 100 mls @ 5 mls/hr IV .Q20H [facility] PRN Reason: Protocol Last Admin: 12/11/17 09:12 Dose: 5 mls/hr Enteral Nutritional Formula (Vital Af 1.2 Alejandro Liquid) 1,000 mls @ 25 mls/hr GT .Q40H [facility] PRN Reason: Protocol Last Admin: 12/11/17 05:57 Dose: 25 mls/hr Dexmedetomidine HCl 400 mcg/ (Sodium Chloride) 100 mls @ 12.26 mls/hr IV .Q8H10M [facility] PRN Reason: 0.5 MCG/KG/HR Last Admin: 12/11/17 06:31 Dose: 12.26 mls/hr Vancomycin IV Pharmacy to Dose (1 ea/ Sodium Chloride) 500 mls @ 250 mls/hr IV X1 PRN; Protocol PRN Reason: Rx to Dose Vancomycin HCl 1,250 mg/ (Sodium Chloride) 275 mls @ 167 mls/hr IV Q8H [facility] Insulin Glargine (Lantus (Bkc)) 25 units SC QHS [facility] Last Admin: 12/10/17 21:48 Dose: 25 units Insulin Human Lispro (Humalog Kwikpen (Bkc)) 0 unit SQ Q6 [facility] PRN Reason: Protocol Last Admin: 12/11/17 05:00 Dose: 2 units Lorazepam (Ativan) 2 mg IV Q2H PRN PRN; Protocol PRN Reason: CIWA score > 8 but <15 Last Admin: 12/11/17 06:01 Dose: 2 mg Lorazepam (Ativan) 2 mg IV UD PRN; Protocol PRN Reason: CIWA score >/=15. Last Admin: 12/08/17 08:10 Dose: 2 mg Lorazepam (Ativan) 2 mg GT Q2H PRN PRN; Protocol PRN Reason: CIWA score > 8 but <15 Lorazepam (Ativan) 2 mg GT UD PRN; Protocol PRN Reason: CIWA score >/=15. Magnesium Hydroxide (Milk Of Magnesia) 30 ml GT DAILY PRN PRN PRN Reason: Constipation Multivitamins (Multivitamin) 1 tablet GT DAILYCM [facility] Last Admin: 12/11/17 08:30 Dose: 1 tablet Nicotine (Nicoderm Cq (Pbkc)) 21 mg TRANSDERM. DAILY [facility] Last Admin: 12/11/17 10:12 Dose: 21 mg Ondansetron HCl (Zofran) 4 mg IV Q6H PRN PRN PRN Reason: NAUSEA/VOMITING Last Admin: 12/08/17 05:14 Dose: 4 mg Senna/Docusate Sodium (Senokot-S, Eugenie-Colace) 2 tablet GT BID [facility] Last Admin: 12/11/17 10:12 Dose: 2 tablet Sodium Chloride () 5 - 30 ml IV UD PRN PRN Reason: SALINE FLUSH Last Admin: 12/11/17 10:17 Dose: 10 ml Medical Necessity - Tobacco Use Smoking Status: Current every day smoker - Smokes cigarettes. Assessment/Plan All Active Problems Alcohol intoxication (Acute) Pancreatitis (Acute) Alcohol withdrawal (Acute) 47-year-old gentleman with history of alcohol dependence who presented with abdominal pain. Patient was found to be intoxicated with alcohol levels of 465. He was also found to have acute pancreatitis admitted to the intensive care unit for subsequent management 1. Acute alcohol withdrawal/DT with chronic alcohol use and dependency: Initially, patient was managed with Ativan a Currently patient is on 30% FiO2. CIWA score is high. Yesterday, patient requires intermittent Ativan on top of IV propofol and fentanyl drip and therefore Precedex drip added. On thiamine and folic acid. Concern of possible aspiration pneumonia: The patient was found to have thick secretions the posterior oropharynx which raised the concern for aspiration pneumonia; therefore was on Unasyn. Respiratory culture shows MRSA and strep group B. Chest x-ray shows blunting of left costophrenic angle; may represent either atelectasis or early left basilar infiltrate. Started on vancomycin and Unasyn discontinued Mild hypokalemia: Potassium being monitored and replaced accordingly. 2. Acute alcoholic pancreatitis. Currently on tube feed after intubation. 3. Chronic alcohol dependence with acute intoxication upon presentation 4. Diabetes mellitus type II: uncontrolled. Placed on long acting insulin, Accu-Cheks a.c. and at bedtime and covered with sliding scale insulin 5. Hypertension-blood pressure controlled, home medications continued with dose adjustment as needed 6. Depression with anxiety patient is on SSRI as well as Seroquel 7. Obesity with BMI of 30.2 8. DVT prophylaxis SC heparin Microbiology Past 72 Hours 12/08/17 11:07 Sputum, Induced/Lukens Gram Stain - Final 12/08/17 11:07 Sputum, Induced/Lukens Respiratory Culture - Final Meth. resistant Staph. aureus Streptococcus agalactiae (B) Laboratory Results 12/10/17 12:08: POC Glucose 198 H 12/10/17 18:54: POC Glucose 143 H 12/10/17 21:55: POC Glucose 168 H 12/10/17 23:07: POC Glucose 187 H 12/11/17 04:10: WBC 7.8, RBC 3.79 L, Hgb 11.7 L, Hct 36.0 L, MCV 95.0 H, MCH 30.9, MCHC 32.5, RDW 15.6 H, RDW Differential 53.8 H, Plt Count 155, MPV 10.0, Immature Gran % (Auto) 0.300, Neut % (Auto) 42.1 L, Lymph % (Auto) 41.3 H, [place] % (Auto) 10.2 H, Eos % (Auto) 5.5 H, Baso % (Auto) 0.6, Absolute Neuts (auto) 3.3, Absolute Lymphs (auto) 3.23, Total Counted Not Reportable 12/11/17 04:10: Sodium 146 H, Potassium 3.6, Chloride 106, Carbon Dioxide 31.0, Anion Gap 9, BUN 10, Creatinine 0.64 L, Estim Creat Clear Calc 153.61, Est GFR (MDRD) Af Amer 172, Est GFR (MDRD) Non-Af 142, BUN/Creatinine Ratio 15.6, Glucose 193 H, Calcium 8.4 L, Phosphorus 4.3, Magnesium 2.2 12/11/17 04:54: POC Glucose 172 H 12/11/17 11:44: POC Glucose 160 H Active Medications Bisacodyl (Dulcolax) 5 mg PO DAILY PRN PRN PRN Reason: Constipation Chlordiazepoxide (Librium) 25 mg GT Q8 [facility] Last Admin: 12/11/17 08:30 Dose: 25 mg Chlorhexidine Gluconate () 1 each TOPICAL DAILY [facility] Last Admin: 12/11/17 02:45 Dose: 1 each Chlorhexidine Gluconate () 15 ml PO BID [facility] Last Admin: 12/11/17 10:11 Dose: 15 ml Dextrose (D50w Syringe) 0 gm IV X1 PRN; Protocol PRN Reason: Hypoglycemia Famotidine (Pepcid) 20 mg GT BID [facility] Last Admin: 12/11/17 10:12 Dose: 20 mg Glucagon () 1 mg IM .X1 PRN PRN Reason: Hypoglycemia Heparin Sodium (Porcine) (Heparin Na) 5,000 unit SC Q8 [facility] Last Admin: 12/11/17 05:00 Dose: 5,000 unit Propofol (Diprivan) 1,000 mg in 100 mls @ 2.946 mls/hr CONT INF .Q12H [facility]; 5 MCG/KG/MIN PRN Reason: Protocol Last Admin: 12/11/17 08:54 Dose: 2.946 mls/hr Fentanyl () 100 mls @ 5 mls/hr IV .Q20H [facility] PRN Reason: Protocol Last Admin: 12/11/17 09:12 Dose: 5 mls/hr Enteral Nutritional Formula (Vital Af 1.2 Alejandro Liquid) 1,000 mls @ 25 mls/hr GT .Q40H [facility] PRN Reason: Protocol Last Admin: 12/11/17 05:57 Dose: 25 mls/hr Dexmedetomidine HCl 400 mcg/ (Sodium Chloride) 100 mls @ 12.26 mls/hr IV .Q8H10M [facility] PRN Reason: 0.5 MCG/KG/HR Last Admin: 12/11/17 06:31 Dose: 12.26 mls/hr Vancomycin IV Pharmacy to Dose (1 ea/ Sodium Chloride) 500 mls @ 250 mls/hr IV X1 PRN; Protocol PRN Reason: Rx to Dose Vancomycin HCl 1,250 mg/ (Sodium Chloride) 275 mls @ 167 mls/hr IV Q8H [facility] Insulin Glargine (Lantus (Bkc)) 25 units SC QHS [facility] Last Admin: 12/10/17 21:48 Dose: 25 units Insulin Human Lispro (Humalog Kwikpen (Bkc)) 0 unit SQ Q6 [facility] PRN Reason: Protocol Last Admin: 12/11/17 05:00 Dose: 2 units Lorazepam (Ativan) 2 mg IV Q2H PRN PRN; Protocol PRN Reason: CIWA score > 8 but <15 Last Admin: 12/11/17 06:01 Dose: 2 mg Lorazepam (Ativan) 2 mg IV UD PRN; Protocol PRN Reason: CIWA score >/=15. Last Admin: 12/08/17 08:10 Dose: 2 mg Lorazepam (Ativan) 2 mg GT Q2H PRN PRN; Protocol PRN Reason: CIWA score > 8 but <15 Lorazepam (Ativan) 2 mg GT UD PRN; Protocol PRN Reason: CIWA score >/=15. Magnesium Hydroxide (Milk Of Magnesia) 30 ml GT DAILY PRN PRN PRN Reason: Constipation Multivitamins (Multivitamin) 1 tablet GT DAILYCM [facility] Last Admin: 12/11/17 08:30 Dose: 1 tablet Nicotine (Nicoderm Cq (Pbkc)) 21 mg TRANSDERM. DAILY [facility] Last Admin: 12/11/17 10:12 Dose: 21 mg Ondansetron HCl (Zofran) 4 mg IV Q6H PRN PRN PRN Reason: NAUSEA/VOMITING Last Admin: 12/08/17 05:14 Dose: 4 mg Senna/Docusate Sodium (Senokot-S, Eugenie-Colace) 2 tablet GT BID [facility] Last Admin: 12/11/17 10:12 Dose: 2 tablet Sodium Chloride () 5 - 30 ml IV UD PRN PRN Reason: SALINE FLUSH Last Admin: 12/11/17 10:17 Dose: 10 ml Code Visit Inpatient E&M: 23651 Subs Hosp L3
[2017-12-11 18:46] LABS: Bedside Glucose 189 mg/dL (70-110)
--- NOTE | 2017-12-11 19:11 | NURSING ---
update given to Carin from [facility] Silva
[2017-12-11 22:51] LABS: Bedside Glucose 209 mg/dL (70-110)
[2017-12-12] VITALS (37 sets, daily range): BP systolic 90–151; BP diastolic 66–96; PULSE 63–80; RESP 12–16; TEMP 36.6–37.2; O2SAT 93–98
[2017-12-12] MEDS: Propofol 10MG/Ml 1,000 MG/100 ML Bottle 2.946 MG CONT INF ×4 (01:24→19:56)
[2017-12-12] MEDS: CHLORHEXIDINE GLUC 2% CLOTH 1 EACH TOWELETTE TOPICAL (03:51)
[2017-12-12] MEDS: Magnesium Hydroxide 30 ML UDC GT (03:51)
[2017-12-12 04:47] LABS: Absolute Lymphocyte Count 3.21 X10^3/ul (0.83-4.51); Absolute Neutrophil Count 3.9 X10^3/uL (2.0-7.7); Anion Gap 7 (5-15); BUN 13 mg/dL (7-18); BUN/Creat Ratio 18.2 RATIO (10-20); Basophil# 0.04 X10^3/uL; Basophil% 0.5 % (0-1); Calcium,Total 8.4 mg/dL (8.5-10.1); Chloride 105 mmol/L (98-107); Creatinine, Serum 0.71 mg/dL (0.70-1.30); EST Glomerular Filtration Rate 126 mL/min (>60); Eosinophil# 0.44 X10^3/uL; Est Glom Filt Rate - Afr Amer 152 mL/min (>60); Estimated Creatinine Clearance 138.46 ml/min; Glucose 221 mg/dL (74-106); Hematocrit 40.8 % (40-54); Hemoglobin 13.3 g/dl (13.0-16.5); Lymphocyte # 3.21 X10^3/ul (4.0); Lymphocyte % 36.2 % (19-41); Mean Corp Hgb Conc 32.6 g/gl (32-36); Mean Corpuscular Hgb 31.1 pg (27.0-32.0); Mean Corpuscular Volume 95.3 fL (80-94); Mean Platelet Vol. 10.4 fl (6.2-12.0); Monocyte# 1.28 X10^3/uL; Monocyte% 14.4 % (0-10); Neutrophil # 3.87 X10^3/uL (2.7-7.7); Neutrophil % 43.6 % (47-70); Phosphorus 3.4 mg/dL (2.5-4.9); Platelet Count 195 K/mm3 (150-450); Potassium 4.1 mmol/L (3.5-5.1); RBC Distribution Width CV 15.4 % (11.6-14.6); RBC Distribution Width SD 53.5 fl (35.1-43.9); Red Blood Count 4.28 M/mm3 (4.6-6.2); Sodium Level 142 mmol/L (136-145); White Blood Count 8.9 K/mm3 (4.4-11.0)
[2017-12-12 04:48] LABS: POSITIVE COUNT NO; POSITIVE DIFFERENTIAL NO; POSITIVE MORPHOLOGY NO
[2017-12-12] MEDS: Heparin Injection (Vial) 5,000 UNIT/ML VIAL 5000 UNIT SC ×3 (05:13→22:51)
[2017-12-12] MEDS: Insulin Lispro 100 UNIT/ML INSULN.PEN SQ ×4 (05:13→22:59)
[2017-12-12] MEDS: chlordiazePOXIDE 25 MG Capsule GT (05:14)
[2017-12-12 05:36] LABS: Bedside Glucose 237 mg/dL (70-110)
[2017-12-12] MEDS: chlordiazePOXIDE 25 MG Capsule PO (06:04)
--- NOTE | 2017-12-12 06:22 | PCM.PN.INT ---
Subjective: Patient did okay overnight. Patient has been initiated on Precedex therapy, but is still requiring propofol at 30, in addition to fentanyl at max dosing. Patient did receive Librium, but was unable to tolerate spontaneous awakening trial this morning. Nursing does report some endotracheal secretions. No hemodynamic instability is been reported. Patient's ectopy on telemetry is improved. General: - - RASS -2. Good ventilator synchrony. Slightly diaphoretic. HEENT: Atraumatic, PERRLA, EOMI, Normocephalic, - - No scleral icterus or injection noted. Oral: Moist Mucosa, No Gingival or Mucosal Lesions/ Ulcerations Neck: Supple, No JVD, No Nodes, Trachea Midline Lungs: No rhonchi, No wheeze, No rales, Diminished, - - Symmetric expansion. No dullness to percussion. Cardiovascular: Regular rate, Regular Rhythm, Normal S1, Normal S2, No murmurs, No rub noted, No Gallop Abdomen: Bowel Sounds Present, Soft, Non Tender, Distended, Obese Extremities: No clubbing, No cyanosis, Capillary Refill Less than 3 Seconds, Edema Skin: No rashes, No breakdown Musculoskeletal: No Tenderness to Palpation of Joints or Extremities Lymphatic: No Cervical, Supraclavicular, or Inguinal Adenopathy Neurological: Cranial nerves II-XII grossly intact, Neuro grossly intact Psych/Mental Status: Flat Affect, Impulsive Vital Signs Temp Pulse Resp BP Pulse Ox 36.9 C 67 12 133/81 H 94 12/12/17 00:00 12/12/17 06:00 12/12/17 06:00 12/12/17 06:00 12/12/17 06:00 Oxygen Delivery Method Mechanical Ventilator Weight: 99.1 kg Body Mass Index (BMI) 29.9 Intake and Output for Last 24 Hours 12/10/17 12/11/17 12/12/17 23:59 23:59 23:59 Intake Total 3126.7 / 3126.7 6609.0 / 6609.0 1212 / 1212 Output Total 2225 / 2225 3825 / 3825 350 / 350 Balance 901.7 / 901.7 2784.0 / 2784.0 862 / 862 Labs (Last 48 Hours) 12/10/17 12/10/17 12/10/17 12:08 18:54 21:55 WBC RBC Hgb Hct MCV MCH MCHC RDW RDW Differential Plt Count MPV Immature Gran % (Auto) Neut % (Auto) Lymph % (Auto) [place] % (Auto) Eos % (Auto) Baso % (Auto) Absolute Neuts (auto) Absolute Lymphs (auto) Total Counted Sodium Potassium Chloride Carbon Dioxide Anion Gap BUN Creatinine Estim Creat Clear Calc Est GFR (MDRD) Af Amer Est GFR (MDRD) Non-Af BUN/Creatinine Ratio Glucose Calcium Phosphorus Magnesium POC Glucose 198 H 143 H 168 H 12/10/17 12/11/17 12/11/17 23:07 04:10 04:10 WBC 7.8 RBC 3.79 L Hgb 11.7 L Hct 36.0 L MCV 95.0 H MCH 30.9 MCHC 32.5 RDW 15.6 H RDW Differential 53.8 H Plt Count 155 MPV 10.0 Immature Gran % (Auto) 0.300 Neut % (Auto) 42.1 L Lymph % (Auto) 41.3 H [place] % (Auto) 10.2 H Eos % (Auto) 5.5 H Baso % (Auto) 0.6 Absolute Neuts (auto) 3.3 Absolute Lymphs (auto) 3.23 Total Counted Not Reportable Sodium 146 H Potassium 3.6 Chloride 106 Carbon Dioxide 31.0 Anion Gap 9 BUN 10 Creatinine 0.64 L Estim Creat Clear Calc 153.61 Est GFR (MDRD) Af Amer 172 Est GFR (MDRD) Non-Af 142 BUN/Creatinine Ratio 15.6 Glucose 193 H Calcium 8.4 L Phosphorus 4.3 Magnesium 2.2 POC Glucose 187 H 12/11/17 12/11/17 12/11/17 04:54 11:44 18:25 WBC RBC Hgb Hct MCV MCH MCHC RDW RDW Differential Plt Count MPV Immature Gran % (Auto) Neut % (Auto) Lymph % (Auto) [place] % (Auto) Eos % (Auto) Baso % (Auto) Absolute Neuts (auto) Absolute Lymphs (auto) Total Counted Sodium Potassium Chloride Carbon Dioxide Anion Gap BUN Creatinine Estim Creat Clear Calc Est GFR (MDRD) Af Amer Est GFR (MDRD) Non-Af BUN/Creatinine Ratio Glucose Calcium Phosphorus Magnesium POC Glucose 172 H 160 H 189 H 12/11/17 12/12/17 12/12/17 22:26 04:20 04:20 WBC 8.9 RBC 4.28 L Hgb 13.3 Hct 40.8 MCV 95.3 H MCH 31.1 MCHC 32.6 RDW 15.4 H RDW Differential 53.5 H Plt Count 195 MPV 10.4 Immature Gran % (Auto) 0.300 Neut % (Auto) 43.6 L Lymph % (Auto) 36.2 [place] % (Auto) 14.4 H Eos % (Auto) 5.0 Baso % (Auto) 0.5 Absolute Neuts (auto) 3.9 Absolute Lymphs (auto) 3.21 Total Counted Not Reportable Sodium 142 Potassium 4.1 Chloride 105 Carbon Dioxide 30.0 Anion Gap 7 BUN 13 Creatinine 0.71 Estim Creat Clear Calc 138.46 Est GFR (MDRD) Af Amer 152 Est GFR (MDRD) Non-Af 126 BUN/Creatinine Ratio 18.2 Glucose 221 H Calcium 8.4 L Phosphorus 3.4 Magnesium 2.0 POC Glucose 209 H 12/12/17 05:13 WBC RBC Hgb Hct MCV MCH MCHC RDW RDW Differential Plt Count MPV Immature Gran % (Auto) Neut % (Auto) Lymph % (Auto) [place] % (Auto) Eos % (Auto) Baso % (Auto) Absolute Neuts (auto) Absolute Lymphs (auto) Total Counted Sodium Potassium Chloride Carbon Dioxide Anion Gap BUN Creatinine Estim Creat Clear Calc Est GFR (MDRD) Af Amer Est GFR (MDRD) Non-Af BUN/Creatinine Ratio Glucose Calcium Phosphorus Magnesium POC Glucose 237 H Microbiology 12/08/17 11:07 Sputum, Induced/Lukens Gram Stain - Final 12/08/17 11:07 Sputum, Induced/Lukens Respiratory Culture - Final Meth. resistant Staph. aureus Streptococcus agalactiae (B) Medical Necessity - Tobacco Use Smoking Status: Current every day smoker - Smokes cigarettes. Assessment/Plan All Active Problems Alcohol intoxication (Acute) Pancreatitis (Acute) Alcohol withdrawal (Acute) RECOMMENDATIONS: 1. Continue current supportive measures with mechanical ventilation. 2. Continue propofol, fentanyl, Precedex and Librium. Add Seroquel 3. Continue tube feeds as ordered. 4. Continue vancomycin for now 5. Continue Unasyn, pending finalized infectious workup. 6. Continue appropriate ICU prophylaxis IMPRESSIONS: 1. Acute respiratory failure Patient continues to be very difficult to sedate. Patient currently on propofol at high doses, despite the use of supplemental Ativan therapy. Patient is also on a fentanyl drip. Attempted adding Librium and Precedex yesterday, but still having episodes of agitation despite significant propofol dosing. Will initiate patient on Seroquel therapy and titrate up as QT will allow. Patient is growing MRSA in his sputum. Patient was initiated on vancomycin yesterday. 2. Alcoholic pancreatitis The patient was initially treated with n.p.o. status and supplemental IV fluids. His pain and lipase levels improved. Following intubation, he was started on tube feeds, which he is currently tolerating. Patient is on significant amounts of fentanyl. Patient has not had a bowel movement in quite some time. Will give MiraLAX. 3. Chronic alcohol dependency with acute withdrawal/delirium tremens The patient did have to be electively intubated on December 08, after he developed refractory agitation and delirium. Patient is still having significant difficulty with agitation. It is unclear how much of this is related to active withdrawal and how much is related to intolerance of the endotracheal tube. Sedative trials have not been very successful to this point. Unclear if patient will have to be woken up with acute discontinuation of endotracheal tube. 4. Diabetes mellitus/hypertension/depression/anxiety tobacco dependency Complicates care, management, recovery and prognosis. Continue Lantus and sliding scale insulin coverage. Continue nicotine replacement therapy. TIME: 32 minutes of critical care time, inclusive of procedures, was spent addressing the patient's acute alcohol withdrawal/delirium tremens, alcoholic pancreatitis, diabetes mellitus, review of all data and collaboration with the care team. (5:20 AM to 6:20 AM) Code Visit 9xxxx: [id number] Critical care first hour
[2017-12-12] MEDS: Polyethylene Glycol 3350 17 GM PACKET PO (06:40)
--- NOTE | 2017-12-12 07:25 | PCM.PN.HOSP ---
Patient Problems: Active and Suspected Problems Alcohol intoxication (Acute) Pancreatitis (Acute) Subjective: Patient was seen and examined. Remains intubated, on mechanical ventilator. and under sedation-propofol, fentanyl, Precedex. No acute events overnight. Objective: Physical exam: General: - - Sedated on propofol, fentanyl and Precedex drip HEENT: Atraumatic, PERRLA, EOMI, Normocephalic Neck: Supple, No JVD, Negative Carotid Bruits Lungs: No rhonchi, No wheeze, - - On vent support Cardiovascular: Regular rate, Normal S1, Normal S2, No murmurs, - - PVCs on monitor Abdomen: Bowel Sounds Present, Soft, Non Tender Extremities: Capillary Refill Less than 3 Seconds, Edema Skin: No rashes, No breakdown Musculoskeletal: No Tenderness to Palpation of Joints or Extremities Neurological: Cranial nerves II-XII grossly intact Psych/Mental Status: Normal Affect, Appropriate Vitals/I&O's: Vital Signs Temp Pulse Resp BP Pulse Ox 98.5 F 67 12 133/81 H 94 12/12/17 00:00 12/12/17 06:00 12/12/17 06:00 12/12/17 06:00 12/12/17 06:00 Oxygen Delivery Method Mechanical Ventilator Weight: 99.1 kg Body Mass Index (BMI) 29.9 Intake and Output for Last 24 Hours 12/10/17 12/11/17 12/12/17 23:59 23:59 23:59 Intake Total 3126.7 / 3126.7 6609.0 / 6609.0 1212 / 1212 Output Total 2225 / 2225 3825 / 3825 350 / 350 Balance 901.7 / 901.7 2784.0 / 2784.0 862 / 862 Microbiology Past 72 Hours 12/08/17 11:07 Sputum, Induced/Lukens Gram Stain - Final 12/08/17 11:07 Sputum, Induced/Lukens Respiratory Culture - Final Meth. resistant Staph. aureus Streptococcus agalactiae (B) Laboratory Results 12/11/17 11:44: POC Glucose 160 H 12/11/17 18:25: POC Glucose 189 H 12/11/17 22:26: POC Glucose 209 H 12/12/17 04:20: WBC 8.9, RBC 4.28 L, Hgb 13.3, Hct 40.8, MCV 95.3 H, MCH 31.1, MCHC 32.6, RDW 15.4 H, RDW Differential 53.5 H, Plt Count 195, MPV 10.4, Immature Gran % (Auto) 0.300, Neut % (Auto) 43.6 L, Lymph % (Auto) 36.2, [place] % (Auto) 14.4 H, Eos % (Auto) 5.0, Baso % (Auto) 0.5, Absolute Neuts (auto) 3.9, Absolute Lymphs (auto) 3.21, Total Counted Not Reportable 12/12/17 04:20: Sodium 142, Potassium 4.1, Chloride 105, Carbon Dioxide 30.0, Anion Gap 7, BUN 13, Creatinine 0.71, Estim Creat Clear Calc 138.46, Est GFR (MDRD) Af Amer 152, Est GFR (MDRD) Non-Af 126, BUN/Creatinine Ratio 18.2, Glucose 221 H, Calcium 8.4 L, Phosphorus 3.4, Magnesium 2.0 12/12/17 05:13: POC Glucose 237 H Current Medications Bisacodyl (Dulcolax) 5 mg PO DAILY PRN PRN PRN Reason: Constipation Chlordiazepoxide (Librium) 50 mg GT Q8 [facility] Chlorhexidine Gluconate () 1 each TOPICAL DAILY [facility] Last Admin: 12/12/17 03:51 Dose: 1 each Chlorhexidine Gluconate () 15 ml PO BID [facility] Last Admin: 12/11/17 22:20 Dose: 15 ml Dextrose (D50w Syringe) 0 gm IV X1 PRN; Protocol PRN Reason: Hypoglycemia Famotidine (Pepcid) 20 mg GT BID [facility] Last Admin: 12/11/17 22:19 Dose: 20 mg Glucagon () 1 mg IM .X1 PRN PRN Reason: Hypoglycemia Heparin Sodium (Porcine) (Heparin Na) 5,000 unit SC Q8 [facility] Last Admin: 12/12/17 05:13 Dose: 5,000 unit Propofol (Diprivan) 1,000 mg in 100 mls @ 2.946 mls/hr CONT INF .Q12H [facility]; 5 MCG/KG/MIN PRN Reason: Protocol Last Admin: 12/12/17 05:13 Dose: 2.946 mls/hr Fentanyl () 100 mls @ 5 mls/hr IV .Q20H [facility] PRN Reason: Protocol Last Admin: 12/12/17 07:03 Dose: 5 mls/hr Enteral Nutritional Formula (Vital Af 1.2 Alejandro Liquid) 1,000 mls @ 25 mls/hr GT .Q40H [facility] PRN Reason: Protocol Last Admin: 12/12/17 00:41 Dose: Not Given Dexmedetomidine HCl 400 mcg/ (Sodium Chloride) 100 mls @ 12.26 mls/hr IV .Q8H10M [facility] PRN Reason: 0.5 MCG/KG/HR Last Admin: 12/12/17 04:21 Dose: 12.26 mls/hr Vancomycin IV Pharmacy to Dose (1 ea/ Sodium Chloride) 500 mls @ 250 mls/hr IV X1 PRN; Protocol PRN Reason: Rx to Dose Vancomycin HCl 1,250 mg/ (Sodium Chloride) 275 mls @ 167 mls/hr IV Q8H [facility] Last Admin: 12/12/17 03:51 Dose: 167 mls/hr Insulin Glargine (Lantus (Bkc)) 25 units SC QHS [facility] Last Admin: 12/11/17 22:26 Dose: 25 units Insulin Human Lispro (Humalog Kwikpen (Bkc)) 0 unit SQ Q6 [facility] PRN Reason: Protocol Last Admin: 12/12/17 05:13 Dose: 4 units Lorazepam (Ativan) 2 mg IV Q2H PRN PRN; Protocol PRN Reason: CIWA score > 8 but <15 Last Admin: 12/11/17 06:01 Dose: 2 mg Lorazepam (Ativan) 2 mg IV UD PRN; Protocol PRN Reason: CIWA score >/=15. Last Admin: 12/08/17 08:10 Dose: 2 mg Lorazepam (Ativan) 2 mg GT Q2H PRN PRN; Protocol PRN Reason: CIWA score > 8 but <15 Lorazepam (Ativan) 2 mg GT UD PRN; Protocol PRN Reason: CIWA score >/=15. Magnesium Hydroxide (Milk Of Magnesia) 30 ml GT DAILY PRN PRN PRN Reason: Constipation Last Admin: 12/12/17 03:51 Dose: 30 ml Multivitamins (Multivitamin) 1 tablet GT DAILYCM [facility] Last Admin: 12/11/17 08:30 Dose: 1 tablet Nicotine (Nicoderm Cq (Pbkc)) 21 mg TRANSDERM. DAILY [facility] Last Admin: 12/11/17 10:12 Dose: 21 mg Ondansetron HCl (Zofran) 4 mg IV Q6H PRN PRN PRN Reason: NAUSEA/VOMITING Last Admin: 12/08/17 05:14 Dose: 4 mg Quetiapine Fumarate (Seroquel) 50 mg PO BID [facility] Senna/Docusate Sodium (Senokot-S, Eugenie-Colace) 2 tablet GT BID [facility] Last Admin: 12/11/17 22:19 Dose: 2 tablet Sodium Chloride () 5 - 30 ml IV UD PRN PRN Reason: SALINE FLUSH Last Admin: 12/11/17 14:04 Dose: 10 ml Medical Necessity - Tobacco Use Smoking Status: Current every day smoker - Smokes cigarettes. Assessment/Plan All Active Problems Alcohol intoxication (Acute) Pancreatitis (Acute) Alcohol withdrawal (Acute) 47-year-old male with history of alcohol dependence, hypertension, type II DM who was admitted on 12/06/2017 after a binge of alcohol with abdominal pain . He was found to be intoxicated with alcohol levels of 365, elevated lipase and also managed as acute pancreatitis in the ICU. He was initially started on Precedex, got progressively worse with worsening CIWA scores, subsequently got intubated and sedated. 1. Acute respiratory failure, patient electively intubated for worsening, difficult to control, alcohol withdrawal symptoms, and is intubated on propofol, fentanyl, Precedex. 2. Acute alcohol withdrawal/DT with chronic alcohol use and dependency, sedated, intubated, on Librium and also prn Ativan. 3. Possible aspiration pneumonia, CXR on 12/08/17 showed increased markings at left lung base with blunting of the left costophrenic angle, sputum is growing MRSA and strep agalactiae, previous nasopharyngeal cultures growing staph aureus and streptococcal pneumoniae Remains on vancomycin iv (day 2). Has remained afebrile, no leukocytosis Will repeat chest x-ray today. 3. Hypokalemia, resolved, will trend BMP in a.m 4. Acute alcoholic pancreatitis, resolving, on tube feeds 5. Diabetes mellitus type II, blood sugars are fairly uncontrolled, will increase Lantus to 27 units QHS as well as ISS with accuhecks. 6. Hypertension, controlled, not on medications 7. Depression, off Prozac, on home Seroquel 8. Obesity, BMI of 30.5 9. DVT prophylaxis - Heparin Sc Code Visit Inpatient E&M: 94661 Subs Hosp L2
[2017-12-12] MEDS: Famotidine 20 MG Tablet GT ×2 (09:12→22:49)
[2017-12-12] MEDS: Senna/Docusate Sodium 1 Tablet 2 TABLET GT ×2 (09:12→22:49)
[2017-12-12] MEDS: Multivitamins,Therapeutic Tablet 1 TABLET GT (09:13)
[2017-12-12] MEDS: QUEtiapine 25 MG Tablet 50 MG PO (09:16)
[2017-12-12] MEDS: Chlorhexidine 15 ML PO ×2 (09:17→22:51)
--- NOTE | 2017-12-12 10:25 | RAD_ITS ---
STUDY: X-RAY CHEST REASON FOR EXAM: Male, 47 years old. Pancreatitis. Shortness of breath. TECHNIQUE: Single AP portable view of the chest. COMPARISON: Comparison is made with prior examination dated December 08, 2017. FINDINGS: An endotracheal tube is in situ. The tip is at 4.4 cm proximal to the lucila. An orogastric tube is seen with the tip in the body of the stomach. EKG electrode are seen. Limited inspiratory effort. Left lower lobe atelectasis and/or infiltrate with a small left pleural effusion. Mild vascular congestion. There is moderate cardiac enlargement. Normal mediastinum and dinorah. Normal visualized pulmonary arteries. Normal visualized aortic arch and descending thoracic aorta. Normal visualized thoracic spine. Normal visualized ribs, clavicles, and shoulders. There is no demonstrated abnormality of the visualized soft tissue structures of the upper abdomen. RAD/Chest 1 View (Portable) IMPRESSION: All the support tubes are in good position. Left basilar atelectasis and/or infiltrate with small left pleural effusion. Mild degree of vascular congestion. Electronically Signed: Karan Talbert MD at 12:54 EDT Tel [phone], Service support ,
[2017-12-12] MEDS: Magnesium Citrate 300 ML 150 ML GT ×2 (11:49→14:26)
[2017-12-12] MEDS: Vital AF 1.2 Cal Liquid 1,000 ML 25 ML GT (11:49)
[2017-12-12 12:15] LABS: Bedside Glucose 254 mg/dL (70-110)
[2017-12-12] MEDS: chlordiazePOXIDE 25 MG Capsule 50 MG GT ×2 (14:15→22:50)
[2017-12-12 19:12] LABS: Vancomycin, Trough Level 11.7 ug/mL (5.0-15.0)
--- NOTE | 2017-12-12 19:55 | PCM.RX.CS ---
Consult Pharmacy has been consulted to manage selected antiobiotic: Vancomycin Type of Consult: Follow-up Labs: Sodium 142 mmol/L (136-145) 12/12/17 04:20 Potassium 4.1 mmol/L (3.5-5.1) 12/12/17 04:20 Chloride 105 mmol/L (98-107) 12/12/17 04:20 Carbon Dioxide 30.0 mmol/L (21.0-32.0) 12/12/17 04:20 Anion Gap 7 (5-15) 12/12/17 04:20 BUN 13 mg/dL (7-18) 12/12/17 04:20 Creatinine 0.71 mg/dL (0.70-1.30) 12/12/17 04:20 Est GFR (MDRD) Af Amer 152 mL/min (>60) 12/12/17 04:20 Est GFR (MDRD) Non-Af 126 mL/min (>60) 12/12/17 04:20 BUN/Creatinine Ratio 18.2 RATIO (10-20) 12/12/17 04:20 Glucose 221 mg/dL (74-106) H 12/12/17 04:20 Vancomycin Trough 11.7 ug/mL (5.0-15.0) 12/12/17 18:30 Microbiology: Microbiology 12/08/17 11:07 Sputum, Induced/Lukens Gram Stain - Final 12/08/17 11:07 Sputum, Induced/Lukens Respiratory Culture - Final Meth. resistant Staph. aureus Streptococcus agalactiae (B) Goal Trough: 15-20 mcg/mL Pharmacy Plan for Drug Dosing: Pharmacy Service will continue to monitor and adjust dosing as required. 12/12 18:30 Trough is 11.7. Will increase Vancomycin dose to 1250mg q6h and recheck trough on 12/13 at 18:30
[2017-12-12 20:15] LABS: Bedside Glucose 266 mg/dL (70-110)
[2017-12-12] MEDS: QUEtiapine 100 MG Tablet PO (22:49)
[2017-12-12 23:06] LABS: Bedside Glucose 213 mg/dL (70-110)
[2017-12-13] VITALS (38 sets, daily range): BP systolic 87–127; BP diastolic 47–89; PULSE 60–141; RESP 7–25; TEMP 36.6–37.3; O2SAT 90–100
[2017-12-13] MEDS: 0.9% NaCl Peripheral Flush Adult/Peds IV (02:01)
[2017-12-13] MEDS: LORazepam 2 MG/ML Syringe IV (02:01)
[2017-12-13] MEDS: Propofol 10MG/Ml 1,000 MG/100 ML Bottle 2.946 MG CONT INF ×2 (03:00→07:00)
[2017-12-13] MEDS: CHLORHEXIDINE GLUC 2% CLOTH 1 EACH TOWELETTE TOPICAL (03:01)
[2017-12-13] MEDS: chlordiazePOXIDE 25 MG Capsule 50 MG GT (05:11)
[2017-12-13] MEDS: Heparin Injection (Vial) 5,000 UNIT/ML VIAL 5000 UNIT SC ×3 (05:12→21:33)
[2017-12-13] MEDS: Insulin Lispro 100 UNIT/ML INSULN.PEN SQ ×2 (05:12→11:28)
[2017-12-13 05:15] LABS: Absolute Lymphocyte Count 2.77 X10^3/ul (0.83-4.51); Absolute Neutrophil Count 3.7 X10^3/uL (2.0-7.7); Basophil# 0.04 X10^3/uL; Basophil% 0.5 % (0-1); Eosinophil# 0.38 X10^3/uL; Eosinophils% 4.3 % (0-5); Hematocrit 39.3 % (40-54); Hemoglobin 12.9 g/dl (13.0-16.5); Lymphocyte # 2.77 X10^3/ul (4.0); Lymphocyte % 31.6 % (19-41); Mean Corp Hgb Conc 32.8 g/gl (32-36); Mean Corpuscular Hgb 31.1 pg (27.0-32.0); Mean Corpuscular Volume 94.7 fL (80-94); Mean Platelet Vol. 9.7 fl (6.2-12.0); Monocyte# 1.85 X10^3/uL; Monocyte% 21.1 % (0-10); Neutrophil # 3.65 X10^3/uL (2.7-7.7); Neutrophil % 41.7 % (47-70); Platelet Count 215 K/mm3 (150-450); RBC Distribution Width CV 15.1 % (11.6-14.6); RBC Distribution Width SD 51.8 fl (35.1-43.9); Red Blood Count 4.15 M/mm3 (4.6-6.2); White Blood Count 8.8 K/mm3 (4.4-11.0)
[2017-12-13 05:16] LABS: Differential Indicated SCAN CRITERIA MET; POSITIVE COUNT NO; POSITIVE DIFFERENTIAL YES; POSITIVE MORPHOLOGY NO
[2017-12-13 05:23] LABS: Anion Gap 10 (5-15); BUN 14 mg/dL (7-18); BUN/Creat Ratio 23.2 RATIO (10-20); Calcium,Total 8.8 mg/dL (8.5-10.1); Chloride 102 mmol/L (98-107); EST Glomerular Filtration Rate 153 mL/min (>60); Est Glom Filt Rate - Afr Amer 185 mL/min (>60); Estimated Creatinine Clearance 163.85 ml/min; Glucose 203 mg/dL (74-106); Potassium 4.1 mmol/L (3.5-5.1); Sodium Level 141 mmol/L (136-145)
[2017-12-13 05:41] LABS: Bedside Glucose 196 mg/dL (70-110)
[2017-12-13 05:49] LABS: Anisocytosis RARE; Macrocytosis RARE; Platelet Estimate ADEQUATE (ADEQ)
--- NOTE | 2017-12-13 06:34 | PCM.PN.INT ---
Subjective: Patient did okay overnight. Patient did receive significant bowel regimen yesterday and did have a bowel movement overnight. Patient continues to tolerate tube feeds. Attempts at coming off of the propofol have not been successful. Patient continues to have periodic impulsiveness with attempts to extubate himself. General: - - RASS -2. Good vent synchrony noted. Appears older than stated age. HEENT: Atraumatic, PERRLA, EOMI, Normocephalic, - - Slight scleral injection without icterus Oral: Moist Mucosa, No Gingival or Mucosal Lesions/ Ulcerations, - - Fair dentition Neck: Supple, No Nodes, Trachea Midline, JVD, Right Lungs: No rhonchi, No wheeze, Diminished, Rales - Left base, - - Symmetric expansion. No dullness to percussion. Cardiovascular: Regular rate, Regular Rhythm, Normal S1, Normal S2, No murmurs, No rub noted, No Gallop Abdomen: Bowel Sounds Present, Soft, Non Tender, Non-Distended, Obese Extremities: No clubbing, No cyanosis, Capillary Refill Less than 3 Seconds, Edema Skin: No rashes, No breakdown Musculoskeletal: No Tenderness to Palpation of Joints or Extremities Lymphatic: No Cervical, Supraclavicular, or Inguinal Adenopathy Neurological: Cranial nerves II-XII grossly intact, Neuro grossly intact, Motor Exam 5/5 strength throughout Psych/Mental Status: Flat Affect, Impulsive Vital Signs Temp Pulse Resp BP Pulse Ox 37.3 C H 63 12 117/85 H 95 12/13/17 06:00 12/13/17 06:00 12/13/17 06:00 12/13/17 06:00 12/13/17 06:00 Oxygen Delivery Method Mechanical Ventilator Weight: 98.6 kg Body Mass Index (BMI) 29.9 Intake and Output for Last 24 Hours 12/11/17 12/12/17 12/13/17 23:59 23:59 23:59 Intake Total 6609.0 / 6609.0 4582 / 4582 1710 / 1710 Output Total 3825 / 3825 1700 / 1700 500 / 500 Balance 2784.0 / 2784.0 2882 / 2882 1210 / 1210 Labs (Last 48 Hours) 12/11/17 12/11/17 12/11/17 11:44 18:25 22:26 WBC RBC Hgb Hct MCV MCH MCHC RDW RDW Differential Plt Count MPV Immature Gran % (Auto) Neut % (Auto) Lymph % (Auto) [place] % (Auto) Eos % (Auto) Baso % (Auto) Absolute Neuts (auto) Absolute Lymphs (auto) Total Counted Differential Comment Diff Path Review Platelet Estimate Anisocytosis Macrocytosis Sodium Potassium Chloride Carbon Dioxide Anion Gap BUN Creatinine Estim Creat Clear Calc Est GFR (MDRD) Af Amer Est GFR (MDRD) Non-Af BUN/Creatinine Ratio Glucose Calcium Phosphorus Magnesium Vancomycin Trough POC Glucose 160 H 189 H 209 H 12/12/17 12/12/17 12/12/17 04:20 04:20 05:13 WBC 8.9 RBC 4.28 L Hgb 13.3 Hct 40.8 MCV 95.3 H MCH 31.1 MCHC 32.6 RDW 15.4 H RDW Differential 53.5 H Plt Count 195 MPV 10.4 Immature Gran % (Auto) 0.300 Neut % (Auto) 43.6 L Lymph % (Auto) 36.2 [place] % (Auto) 14.4 H Eos % (Auto) 5.0 Baso % (Auto) 0.5 Absolute Neuts (auto) 3.9 Absolute Lymphs (auto) 3.21 Total Counted Not Reportable Differential Comment Diff Path Review Platelet Estimate Anisocytosis Macrocytosis Sodium 142 Potassium 4.1 Chloride 105 Carbon Dioxide 30.0 Anion Gap 7 BUN 13 Creatinine 0.71 Estim Creat Clear Calc 138.46 Est GFR (MDRD) Af Amer 152 Est GFR (MDRD) Non-Af 126 BUN/Creatinine Ratio 18.2 Glucose 221 H Calcium 8.4 L Phosphorus 3.4 Magnesium 2.0 Vancomycin Trough POC Glucose 237 H 12/12/17 12/12/17 12/12/17 11:53 18:26 18:30 WBC RBC Hgb Hct MCV MCH MCHC RDW RDW Differential Plt Count MPV Immature Gran % (Auto) Neut % (Auto) Lymph % (Auto) [place] % (Auto) Eos % (Auto) Baso % (Auto) Absolute Neuts (auto) Absolute Lymphs (auto) Total Counted Differential Comment Diff Path Review Platelet Estimate Anisocytosis Macrocytosis Sodium Potassium Chloride Carbon Dioxide Anion Gap BUN Creatinine Estim Creat Clear Calc Est GFR (MDRD) Af Amer Est GFR (MDRD) Non-Af BUN/Creatinine Ratio Glucose Calcium Phosphorus Magnesium Vancomycin Trough 11.7 POC Glucose 254 H 266 H 12/12/17 12/13/17 12/13/17 22:44 04:53 05:00 WBC 8.8 RBC 4.15 L Hgb 12.9 L Hct 39.3 L MCV 94.7 H MCH 31.1 MCHC 32.8 RDW 15.1 H RDW Differential 51.8 H Plt Count 215 MPV 9.7 Immature Gran % (Auto) 0.800 Neut % (Auto) 41.7 L Lymph % (Auto) 31.6 [place] % (Auto) 21.1 H Eos % (Auto) 4.3 Baso % (Auto) 0.5 Absolute Neuts (auto) 3.7 Absolute Lymphs (auto) 2.77 Total Counted Not Reportable Differential Comment SEE COMMENT Diff Path Review May foll Platelet Estimate ADEQUATE Anisocytosis RARE Macrocytosis RARE Sodium Potassium Chloride Carbon Dioxide Anion Gap BUN Creatinine Estim Creat Clear Calc Est GFR (MDRD) Af Amer Est GFR (MDRD) Non-Af BUN/Creatinine Ratio Glucose Calcium Phosphorus Magnesium Vancomycin Trough POC Glucose 213 H 196 H 12/13/17 05:00 WBC RBC Hgb Hct MCV MCH MCHC RDW RDW Differential Plt Count MPV Immature Gran % (Auto) Neut % (Auto) Lymph % (Auto) [place] % (Auto) Eos % (Auto) Baso % (Auto) Absolute Neuts (auto) Absolute Lymphs (auto) Total Counted Differential Comment Diff Path Review Platelet Estimate Anisocytosis Macrocytosis Sodium 141 Potassium 4.1 Chloride 102 Carbon Dioxide 29.0 Anion Gap 10 BUN 14 Creatinine 0.60 L Estim Creat Clear Calc 163.85 Est GFR (MDRD) Af Amer 185 Est GFR (MDRD) Non-Af 153 BUN/Creatinine Ratio 23.2 H Glucose 203 H Calcium 8.8 Phosphorus Magnesium Vancomycin Trough POC Glucose Microbiology 12/08/17 11:07 Sputum, Induced/Lukens Gram Stain - Final 12/08/17 11:07 Sputum, Induced/Lukens Respiratory Culture - Final Meth. resistant Staph. aureus Streptococcus agalactiae (B) Clinical Impression(s) from Imaging Studies Chest X-Ray 12/12/17 10:25 IMPRESSION: All the support tubes are in good position. Left basilar atelectasis and/or infiltrate with small left pleural effusion. Mild degree of vascular congestion. Electronically Signed: Karan Talbert MD at 12:54 EDT Tel [phone], Service support , Medical Necessity - Tobacco Use Smoking Status: Current every day smoker - Smokes cigarettes. Assessment/Plan All Active Problems Alcohol intoxication (Acute) Pancreatitis (Acute) Alcohol withdrawal (Acute) RECOMMENDATIONS: 1. Continue current supportive measures with mechanical ventilation. 2. Continue propofol, fentanyl, Precedex and Librium. Increase Seroquel 3. Continue tube feeds as ordered. 4. Initiate diuretic therapy 5. Continue vancomycin, dosing per pharmacy 6. Continue appropriate ICU prophylaxis IMPRESSIONS: 1. Acute respiratory failure Patient continues to be very difficult to sedate. Patient on multiple sedating medications at this time, but still has impulsive episodes where he tries to extubate himself. Patient is +12-13 L over the course of his hospitalization and fluid balance. Will attempt to increase Seroquel to facilitate a spontaneous awakening trial, but will also initiate diuretic therapy to approach dry weight. Patient may require extubation without full spontaneous breathing trial. Chest x-ray did show left basilar atelectasis versus effusion. 2. Alcoholic pancreatitis The patient was initially treated with n.p.o. status and supplemental IV fluids. His pain and lipase levels improved. Following intubation, he was started on tube feeds, which he is currently tolerating. Patient is on significant amounts of fentanyl. Patient did have bowel movement yesterday and continues to tolerate tube feeds. 3. Chronic alcohol dependency with acute withdrawal/delirium tremens The patient did have to be electively intubated on December 08, after he developed refractory agitation and delirium. Patient is still having significant difficulty with agitation. It is unclear how much of this is related to active withdrawal and how much is related to intolerance of the endotracheal tube. Sedative trials have not been very successful to this point. Unclear if patient will have to be woken up with acute discontinuation of endotracheal tube. 4. Diabetes mellitus/hypertension/depression/anxiety tobacco dependency Complicates care, management, recovery and prognosis. Continue Lantus and sliding scale insulin coverage. Continue nicotine replacement therapy. Addendum 1421: I was called to the patient's room emergently at 11:55 AM secondary to self extubation. Patient was evaluated and was noted to have decreased respiratory rate and hypoxemia. Patient was given blow-by oxygen with some improvement in oxygenation. No Narcan was given, but patient was saturating well. Later, patient started to have decreased respiratory rate, so BiPAP was added with backup rate. Patient has remained hemodynamically stable. Fentanyl, propofol, Precedex and Librium were all discontinued. TIME: 64 minutes of critical care time, inclusive of procedures, was spent addressing the patient's acute alcohol withdrawal/delirium tremens, alcoholic pancreatitis, diabetes mellitus, review of all data and collaboration with the care team. (5:30 AM to 6:30 AM, 12 PM to 1 PM) Code Visit 9xxxx: [id number] Critical care first hour
[2017-12-13] MEDS: Furosemide 20 MG/2 ML VIAL IV (07:00)
--- NOTE | 2017-12-13 08:07 | PN_ITS ---
Patient Problems: Active and Suspected Problems Alcohol intoxication (Acute) Pancreatitis (Acute) Subjective: Patient was seen and examined. Remains intubated. He failed attempts at weaning off ventilator, intermittently agitated. Objective: Physical exam: General: - - Sedated on propofol, fentanyl and Precedex drip HEENT: Atraumatic, PERRLA, EOMI, Normocephalic Neck: Supple, No JVD, Negative Carotid Bruits Lungs: No rhonchi, No wheeze, - - On vent support Cardiovascular: Regular rate, Normal S1, Normal S2, No murmurs, - - PVCs on monitor Abdomen: Bowel Sounds Present, Soft, Non Tender Extremities: Capillary Refill Less than 3 Seconds, Edema Skin: No rashes, No breakdown Musculoskeletal: No Tenderness to Palpation of Joints or Extremities Neurological: Cranial nerves II-XII grossly intact Psych/Mental Status: Normal Affect, Appropriate Vitals/I&O's: Vital Signs Temp Pulse Resp BP Pulse Ox 99.2 F H 64 16 105/73 93 12/13/17 06:00 12/13/17 08:00 12/13/17 08:00 12/13/17 08:00 12/13/17 08:00 Oxygen Delivery Method Mechanical Ventilator Weight: 98.6 kg Body Mass Index (BMI) 29.9 Intake and Output for Last 24 Hours 12/11/17 12/12/17 12/13/17 23:59 23:59 23:59 Intake Total 6609.0 / 6609.0 4582 / 4582 1710 / 1710 Output Total 3825 / 3825 1700 / 1700 500 / 500 Balance 2784.0 / 2784.0 2882 / 2882 1210 / 1210 Microbiology Past 72 Hours 12/08/17 11:07 Sputum, Induced/Lukens Gram Stain - Final 12/08/17 11:07 Sputum, Induced/Lukens Respiratory Culture - Final Meth. resistant Staph. aureus Streptococcus agalactiae (B) Laboratory Results 12/12/17 11:53: POC Glucose 254 H 12/12/17 18:26: POC Glucose 266 H 12/12/17 18:30: Vancomycin Trough 11.7 12/12/17 22:44: POC Glucose 213 H 12/13/17 04:53: POC Glucose 196 H 12/13/17 05:00: WBC 8.8, RBC 4.15 L, Hgb 12.9 L, Hct 39.3 L, MCV 94.7 H, MCH 31.1, MCHC 32.8, RDW 15.1 H, RDW Differential 51.8 H, Plt Count 215, MPV 9.7, Immature Gran % (Auto) 0.800, Neut % (Auto) 41.7 L, Lymph % (Auto) 31.6, [place] % (Auto) 21.1 H, Eos % (Auto) 4.3, Baso % (Auto) 0.5, Absolute Neuts (auto) 3.7, Absolute Lymphs (auto) 2.77, Total Counted Not Reportable, Differential Comment SEE COMMENT, Diff Path Review July foll, Platelet Estimate ADEQUATE, Anisocytosis RARE, Macrocytosis RARE 12/13/17 05:00: Sodium 141, Potassium 4.1, Chloride 102, Carbon Dioxide 29.0, Anion Gap 10, BUN 14, Creatinine 0.60 L, Estim Creat Clear Calc 163.85, Est GFR (MDRD) Af Amer 185, Est GFR (MDRD) Non-Af 153, BUN/Creatinine Ratio 23.2 H, Glucose 203 H, Calcium 8.8 Current Medications Bisacodyl (Dulcolax) 5 mg PO DAILY PRN PRN PRN Reason: Constipation Chlordiazepoxide (Librium) 50 mg GT Q8 [facility] Last Admin: 12/13/17 05:11 Dose: 50 mg Chlorhexidine Gluconate () 1 each TOPICAL DAILY [facility] Last Admin: 12/13/17 03:01 Dose: 1 each Chlorhexidine Gluconate () 15 ml PO BID [facility] Last Admin: 12/12/17 22:51 Dose: 15 ml Dextrose (D50w Syringe) 0 gm IV X1 PRN; Protocol PRN Reason: Hypoglycemia Famotidine (Pepcid) 20 mg GT BID [facility] Last Admin: 12/12/17 22:49 Dose: 20 mg Furosemide (Lasix) 20 mg IV Q8 [facility] Last Admin: 12/13/17 07:00 Dose: 20 mg Glucagon () 1 mg IM .X1 PRN PRN Reason: Hypoglycemia Heparin Sodium (Porcine) (Heparin Na) 5,000 unit SC Q8 [facility] Last Admin: 12/13/17 05:12 Dose: 5,000 unit Propofol (Diprivan) 1,000 mg in 100 mls @ 2.946 mls/hr CONT INF .Q12H [facility]; 5 MCG/KG/MIN PRN Reason: Protocol Last Admin: 12/13/17 07:00 Dose: 2.946 mls/hr Fentanyl () 100 mls @ 5 mls/hr IV .Q20H [facility] PRN Reason: Protocol Last Admin: 12/13/17 05:13 Dose: 5 mls/hr Enteral Nutritional Formula (Vital Af 1.2 Alejandro Liquid) 1,000 mls @ 25 mls/hr GT .Q40H [facility] PRN Reason: Protocol Last Admin: 12/12/17 11:49 Dose: 25 mls/hr Vancomycin IV Pharmacy to Dose (1 ea/ Sodium Chloride) 500 mls @ 250 mls/hr IV X1 PRN; Protocol PRN Reason: Rx to Dose Dexmedetomidine HCl 1,000 mcg/ (Sodium Chloride) 250 mls @ 12.26 mls/hr IV .[id number] [facility] PRN Reason: 0.5 MCG/KG/HR Last Admin: 12/13/17 03:01 Dose: 12.26 mls/hr Vancomycin HCl 1,250 mg/ (Sodium Chloride) 275 mls @ 167 mls/hr IV Q6H [facility] Last Admin: 12/13/17 07:00 Dose: 167 mls/hr Insulin Glargine (Lantus (Bkc)) 27 units SC QHS [facility] Last Admin: 12/12/17 22:50 Dose: 27 u Insulin Human Lispro (Humalog Kwikpen (Bkc)) 0 unit SQ Q6 [facility] PRN Reason: Protocol Last Admin: 12/13/17 05:12 Dose: 2 units Lorazepam (Ativan) 2 mg IV Q2H PRN PRN; Protocol PRN Reason: CIWA score > 8 but <15 Last Admin: 12/13/17 02:01 Dose: 2 mg Lorazepam (Ativan) 2 mg IV UD PRN; Protocol PRN Reason: CIWA score >/=15. Last Admin: 12/08/17 08:10 Dose: 2 mg Lorazepam (Ativan) 2 mg GT Q2H PRN PRN; Protocol PRN Reason: CIWA score > 8 but <15 Lorazepam (Ativan) 2 mg GT UD PRN; Protocol PRN Reason: CIWA score >/=15. Magnesium Hydroxide (Milk Of Magnesia) 30 ml GT DAILY PRN PRN PRN Reason: Constipation Last Admin: 12/12/17 03:51 Dose: 30 ml Multivitamins (Multivitamin) 1 tablet GT DAILYCM [facility] Last Admin: 12/12/17 09:13 Dose: 1 tablet Nicotine (Nicoderm Cq (Pbkc)) 21 mg TRANSDERM. DAILY [facility] Last Admin: 12/12/17 09:12 Dose: 21 mg Ondansetron HCl (Zofran) 4 mg IV Q6H PRN PRN PRN Reason: NAUSEA/VOMITING Last Admin: 12/08/17 05:14 Dose: 4 mg Quetiapine Fumarate 100 mg/ (Quetiapine Fumarate 50 mg) 150 mg PO BID [facility] Senna/Docusate Sodium (Senokot-S, Eugenie-Colace) 2 tablet GT BID [facility] Last Admin: 12/12/17 22:49 Dose: 2 tablet Sodium Chloride () 5 - 30 ml IV UD PRN PRN Reason: SALINE FLUSH Last Admin: 12/13/17 02:01 Dose: 10 ml Medical Necessity - Tobacco Use Smoking Status: Current every day smoker - Smokes cigarettes. Assessment/Plan All Active Problems Alcohol intoxication (Acute) Pancreatitis (Acute) Alcohol withdrawal (Acute) 47-year-old male with history of alcohol dependence, hypertension, type II DM who was admitted on 12/06/2017 after a binge of alcohol with abdominal pain . He was found to be intoxicated with alcohol levels of 365, elevated lipase and also managed as acute pancreatitis in the ICU. He was initially started on Precedex, got progressively worse with worsening CIWA scores, subsequently got intubated and sedated. 1. Acute respiratory failure, patient electively intubated for worsening, difficult to control, alcohol withdrawal symptoms, and is intubated on propofol , fentanyl, Precedex, active management per web operations lead team. 2. Acute alcohol withdrawal/DT with chronic alcohol use and dependency, sedated , intubated, on Librium and also prn Ativan. 3. Possible aspiration pneumonia, CXR on 12/08/17 showed increased markings at left lung base with blunting of the left costophrenic angle, Repeat chest x-ray shows left basilar atelectasis and/or infiltrate with small left pleural effusion Sputum is growing MRSA and strep agalactiae, previous nasopharyngeal cultures growing staph aureus and streptococcal pneumoniae, sensitive to both vancomycin. MRSA sensitive to early clindamycin for streptococcus agalactiae resistant to clindamycin, off vancomycin, 3. Hypokalemia, resolved 4. Acute alcoholic pancreatitis, resolving, on tube feeds 5. Diabetes mellitus type II, blood sugars are electively better controlled, will continue on Lantus to 27 units QHS as well as ISS with accuhecks. 6. Hypertension, controlled, not on medications 7. Depression, off Prozac, on home Seroquel 8. Obesity, BMI of 30.5 9. DVT prophylaxis - Heparin Sc Code Visit Inpatient E&M: 86204 Subs Hosp L2
[2017-12-13] MEDS: Vital AF 1.2 Cal Liquid 1,000 ML 25 ML GT (09:45)
[2017-12-13] MEDS: Chlorhexidine 15 ML PO (09:46)
[2017-12-13] MEDS: Famotidine 20 MG Tablet GT (09:46)
[2017-12-13] MEDS: Multivitamins,Therapeutic Tablet 1 TABLET GT (09:47)
[2017-12-13] MEDS: Senna/Docusate Sodium 1 Tablet 2 TABLET GT (09:48)
[2017-12-13 11:35] LABS: Bedside Glucose 174 mg/dL (70-110)
--- NOTE | 2017-12-13 11:55 | NURSING ---
Responded to vent alarm in patients room. Pt found to have self-extubated, OG tube and ETT both completely out and found in patients hand. Patient was placed on supplemental O2, sedation stopped and mouth suctioned while rn charge contact Dr Ross and respiratory therapy. Pt pulse ox increased from 80% on RA to 94% on 4L NC. Vitals remain stable,pt is breather spontaneously but is not responding appropriately at this time and does not follow commands. Dr Ross came to bedside and assessed patient, continue on NC at this time, continue holding sedation, wean oxygen if possible.
[2017-12-13 13:34] LABS: Pathologist Review Reviewed
--- NOTE | 2017-12-13 13:53 | CASEMGMT ---
ARTURO GARCIA NOTE: Tricia GARCIA from [facility] called to inquire about pt. Medical Update given. -Tricia GARCIA, from [facility] contact #: [phone]. Teto GLOVER RN CM
[2017-12-13] MEDS: Furosemide 40 MG/4 ML Vial IV ×2 (15:50→21:34)
[2017-12-13 19:31] LABS: Bedside Glucose 84 mg/dL (70-110)
[2017-12-13] MEDS: chlordiazePOXIDE 25 MG Capsule 50 MG PO (21:33)
[2017-12-13] MEDS: Senna/Docusate Sodium 1 Tablet 2 TABLET PO (21:33)
[2017-12-13] MEDS: Famotidine 20 MG Tablet PO (21:35)
[2017-12-13 23:35] LABS: Bedside Glucose 109 mg/dL (70-110)
[2017-12-14] VITALS (23 sets, daily range): BP systolic 108–165; BP diastolic 75–98; PULSE 56–114; RESP 12–24; TEMP 36.8–37.6; O2SAT 92–99
[2017-12-14 04:21] LABS: Absolute Lymphocyte Count 3.07 X10^3/ul (0.83-4.51); Absolute Neutrophil Count 5.8 X10^3/uL (2.0-7.7); Basophil# 0.03 X10^3/uL; Basophil% 0.3 % (0-1); Differential Indicated SCAN CRITERIA MET; Eosinophil# 0.16 X10^3/uL; Eosinophils% 1.4 % (0-5); Hematocrit 37.8 % (40-54); Hemoglobin 12.3 g/dl (13.0-16.5); Lymphocyte # 3.07 X10^3/ul (4.0); Lymphocyte % 26.5 % (19-41); Mean Corp Hgb Conc 32.5 g/gl (32-36); Mean Corpuscular Hgb 31.1 pg (27.0-32.0); Mean Corpuscular Volume 95.5 fL (80-94); Mean Platelet Vol. 9.8 fl (6.2-12.0); Monocyte# 2.49 X10^3/uL; Monocyte% 21.5 % (0-10); Neutrophil # 5.79 X10^3/uL (2.7-7.7); Neutrophil % 49.9 % (47-70); POSITIVE COUNT NO; POSITIVE DIFFERENTIAL YES; POSITIVE MORPHOLOGY NO; Platelet Count 261 K/mm3 (150-450); RBC Distribution Width CV 15.2 % (11.6-14.6); RBC Distribution Width SD 52.8 fl (35.1-43.9); Red Blood Count 3.96 M/mm3 (4.6-6.2); White Blood Count 11.6 K/mm3 (4.4-11.0)
[2017-12-14 04:29] LABS: Anion Gap 11 (5-15); BUN 19 mg/dL (7-18); BUN/Creat Ratio 15.6 RATIO (10-20); Chloride 96 mmol/L (98-107); Creatinine, Serum 1.22 mg/dL (0.70-1.30); EST Glomerular Filtration Rate 68 mL/min (>60); Est Glom Filt Rate - Afr Amer 82 mL/min (>60); Estimated Creatinine Clearance 80.58 ml/min; Glucose 91 mg/dL (74-106); Potassium 3.6 mmol/L (3.5-5.1); Sodium Level 140 mmol/L (136-145)
[2017-12-14 04:58] LABS: Anisocytosis RARE; Platelet Estimate ADEQUATE (ADEQ)
[2017-12-14 04:59] LABS: Macrocytosis RARE
[2017-12-14] MEDS: Furosemide 40 MG/4 ML Vial IV (05:01)
[2017-12-14] MEDS: CHLORHEXIDINE GLUC 2% CLOTH 1 EACH TOWELETTE TOPICAL (05:01)
[2017-12-14] MEDS: chlordiazePOXIDE 25 MG Capsule 50 MG PO (05:01)
[2017-12-14] MEDS: Heparin Injection (Vial) 5,000 UNIT/ML VIAL 5000 UNIT SC ×3 (05:01→21:39)
[2017-12-14] MEDS: 0.9% NaCl Peripheral Flush Adult/Peds IV (05:02)
[2017-12-14 05:16] LABS: Bedside Glucose 76 mg/dL (70-110)
--- NOTE | 2017-12-14 06:56 | PCM.PN.INT ---
Subjective: Patient self extubated yesterday. Patient did require BiPAP rescue transiently following extubation, but tolerated nasal cannula overnight. No as needed Ativan is been required. Patient does have some slight confusion. Patient was able to pass a bedside swallow evaluation. Patient denies any pain at this time. General: Alert, Cooperative, No apparent distress, - - Speaking in full sentences. Slightly mumbled voice without hoarseness. HEENT: Atraumatic, PERRLA, EOMI, Normocephalic, - - Pleural injection without icterus Oral: Moist Mucosa, No Gingival or Mucosal Lesions/ Ulcerations Neck: Supple, No Nodes, Trachea Midline, JVD, Right Lungs: No rhonchi, No wheeze, No rales, Diminished, - - Fair effort Cardiovascular: Regular rate, Regular Rhythm, Normal S1, Normal S2, No murmurs, No rub noted, No Gallop Abdomen: Bowel Sounds Present, Soft, Non Tender, Distended - Slightly Extremities: No clubbing, No cyanosis, Capillary Refill Less than 3 Seconds, Edema Skin: - - No significant change compared to previous Musculoskeletal: No Tenderness to Palpation of Joints or Extremities, No Muscle Wasting Lymphatic: No Cervical, Supraclavicular, or Inguinal Adenopathy Neurological: Cranial nerves II-XII grossly intact, Neuro grossly intact, Motor Exam 5/5 strength throughout, - - No asterixis appreciated Psych/Mental Status: Flat Affect, Restless Vital Signs Temp Pulse Resp BP Pulse Ox 37.2 C 101 H 12 111/82 H 93 12/14/17 06:00 12/14/17 06:00 12/14/17 06:00 12/14/17 06:00 12/14/17 06:00 Oxygen Flow Rate (L/min) 3 Oxygen Delivery Method Nasal Cannula Weight: 99.2 kg Body Mass Index (BMI) 29.9 Intake and Output for Last 24 Hours 12/12/17 12/13/17 12/14/17 23:59 23:59 23:59 Intake Total 4722 / 4722 3122 / 3122 385 / 385 Output Total 1700 / 1700 2850 / 2850 900 / 900 Balance 3022 / 3022 272 / 272 -515 / -515 Labs (Last 48 Hours) 12/12/17 12/12/17 12/12/17 11:53 18:26 18:30 WBC RBC Hgb Hct MCV MCH MCHC RDW RDW Differential Plt Count MPV Immature Gran % (Auto) Neut % (Auto) Lymph % (Auto) [place] % (Auto) Eos % (Auto) Baso % (Auto) Absolute Neuts (auto) Absolute Lymphs (auto) Total Counted Differential Comment Diff Path Review Platelet Estimate Anisocytosis Macrocytosis Sodium Potassium Chloride Carbon Dioxide Anion Gap BUN Creatinine Estim Creat Clear Calc Est GFR (MDRD) Af Amer Est GFR (MDRD) Non-Af BUN/Creatinine Ratio Glucose Calcium Vancomycin Trough 11.7 POC Glucose 254 H 266 H 12/12/17 12/13/17 12/13/17 22:44 04:53 05:00 WBC 8.8 RBC 4.15 L Hgb 12.9 L Hct 39.3 L MCV 94.7 H MCH 31.1 MCHC 32.8 RDW 15.1 H RDW Differential 51.8 H Plt Count 215 MPV 9.7 Immature Gran % (Auto) 0.800 Neut % (Auto) 41.7 L Lymph % (Auto) 31.6 [place] % (Auto) 21.1 H Eos % (Auto) 4.3 Baso % (Auto) 0.5 Absolute Neuts (auto) 3.7 Absolute Lymphs (auto) 2.77 Total Counted Not Reportable Differential Comment SEE COMMENT Diff Path Review Reviewed Platelet Estimate ADEQUATE Anisocytosis RARE Macrocytosis RARE Sodium Potassium Chloride Carbon Dioxide Anion Gap BUN Creatinine Estim Creat Clear Calc Est GFR (MDRD) Af Amer Est GFR (MDRD) Non-Af BUN/Creatinine Ratio Glucose Calcium Vancomycin Trough POC Glucose 213 H 196 H 12/13/17 12/13/17 12/13/17 05:00 11:27 18:30 WBC RBC Hgb Hct MCV MCH MCHC RDW RDW Differential Plt Count MPV Immature Gran % (Auto) Neut % (Auto) Lymph % (Auto) [place] % (Auto) Eos % (Auto) Baso % (Auto) Absolute Neuts (auto) Absolute Lymphs (auto) Total Counted Differential Comment Diff Path Review Platelet Estimate Anisocytosis Macrocytosis Sodium 141 Potassium 4.1 Chloride 102 Carbon Dioxide 29.0 Anion Gap 10 BUN 14 Creatinine 0.60 L Estim Creat Clear Calc 163.85 Est GFR (MDRD) Af Amer 185 Est GFR (MDRD) Non-Af 153 BUN/Creatinine Ratio 23.2 H Glucose 203 H Calcium 8.8 Vancomycin Trough POC Glucose 174 H 84 12/13/17 12/14/17 12/14/17 23:05 04:00 04:00 WBC 11.6 H RBC 3.96 L Hgb 12.3 L Hct 37.8 L MCV 95.5 H MCH 31.1 MCHC 32.5 RDW 15.2 H RDW Differential 52.8 H Plt Count 261 MPV 9.8 Immature Gran % (Auto) 0.400 Neut % (Auto) 49.9 Lymph % (Auto) 26.5 [place] % (Auto) 21.5 H Eos % (Auto) 1.4 Baso % (Auto) 0.3 Absolute Neuts (auto) 5.8 Absolute Lymphs (auto) 3.07 Total Counted Pending Differential Comment SEE COMMENT Diff Path Review May foll Platelet Estimate ADEQUATE Anisocytosis RARE Macrocytosis RARE Sodium 140 Potassium 3.6 Chloride 96 L Carbon Dioxide 33.0 H Anion Gap 11 BUN 19 H Creatinine 1.22 Estim Creat Clear Calc 80.58 Est GFR (MDRD) Af Amer 82 Est GFR (MDRD) Non-Af 68 BUN/Creatinine Ratio 15.6 Glucose 91 Calcium 9.0 Vancomycin Trough POC Glucose 109 12/14/17 04:50 WBC RBC Hgb Hct MCV MCH MCHC RDW RDW Differential Plt Count MPV Immature Gran % (Auto) Neut % (Auto) Lymph % (Auto) [place] % (Auto) Eos % (Auto) Baso % (Auto) Absolute Neuts (auto) Absolute Lymphs (auto) Total Counted Differential Comment Diff Path Review Platelet Estimate Anisocytosis Macrocytosis Sodium Potassium Chloride Carbon Dioxide Anion Gap BUN Creatinine Estim Creat Clear Calc Est GFR (MDRD) Af Amer Est GFR (MDRD) Non-Af BUN/Creatinine Ratio Glucose Calcium Vancomycin Trough POC Glucose 76 Medical Necessity - Tobacco Use Smoking Status: Current every day smoker - Smokes cigarettes. Assessment/Plan All Active Problems Alcohol intoxication (Acute) Pancreatitis (Acute) Alcohol withdrawal (Acute) RECOMMENDATIONS: 1. Wean oxygen as tolerated 2. Discontinue Seroquel and Lasix 3. Continue tube feeds as ordered. 4. Possibly reinitiate p.o. Lasix therapy tomorrow 5. Continue clindamycin 6. Okay to leave the intensive care unit from my perspective IMPRESSIONS: 1. Acute respiratory failure Patient self extubated yesterday, but appears to be doing well. Patient currently on minimal nasal cannula oxygen. We will continue with antibiotics. Patient would likely benefit from some diuresis, but creatinine elevated over the last 24 hours. Possibly reinitiate p.o. Lasix tomorrow. Encourage incentive spirometer. Will discontinue Seroquel. 2. Alcoholic pancreatitis The patient was initially treated with n.p.o. status and supplemental IV fluids. His pain and lipase levels improved. Following intubation, he was started on tube feeds, which he is currently tolerating. Patient is on significant amounts of fentanyl. Patient did have bowel movement yesterday and continues to tolerate tube feeds. 3. Chronic alcohol dependency with acute withdrawal/delirium tremens The patient did have to be electively intubated on December 08, after he developed refractory agitation and delirium. Patient is still having significant difficulty with agitation. Patient appears to be doing well. CIWA protocol still present, but likely discontinue tomorrow if no Ativan requirements 4. Diabetes mellitus/hypertension/depression/anxiety tobacco dependency Complicates care, management, recovery and prognosis. Transition to sliding scale insulin with meals only. Likely okay to discontinue insulin if blood sugars appropriate over the next 24 hours. Continue nicotine replacement therapy. Code Visit Inpatient E&M: 11100 Subs Hosp L3
[2017-12-14] MEDS: Multivitamins,Therapeutic Tablet 1 TABLET PO (07:42)
--- NOTE | 2017-12-14 07:51 | PN_ITS ---
Patient Problems: Active and Suspected Problems Alcohol intoxication (Acute) Pancreatitis (Acute) Subjective: Patient was seen and examined. He self extubated himself and was supported for a short time on BiPAP. No acute events overnight. Patient denied any new complaints, denied with any shortness of breath, chest pain, dizziness or palpitations. Appears to be on 4 L of oxygen. Vitals/I&O's: Vital Signs Temp Pulse Resp BP Pulse Ox 99.0 F 108 H 23 H 111/78 93 12/14/17 06:00 12/14/17 07:00 12/14/17 07:00 12/14/17 07:00 12/14/17 07:02 Oxygen Flow Rate (L/min) 2 Oxygen Delivery Method Nasal Cannula Weight: 99.2 kg Body Mass Index (BMI) 29.9 Intake and Output for Last 24 Hours 12/12/17 12/13/17 12/14/17 23:59 23:59 23:59 Intake Total 4722 / 4722 3122 / 3122 385 / 385 Output Total 1700 / 1700 2850 / 2850 900 / 900 Balance 3022 / 3022 272 / 272 -515 / -515 General: Alert, Oriented x3, Cooperative, - - Mild respiratory distress, on 4 L of oxygen HEENT: Atraumatic, PERRLA, EOMI, Normocephalic Oral: Moist Mucosa Neck: Supple, No JVD, Negative Carotid Bruits Lungs: Clear to auscultation, Normal air movement Cardiovascular: Regular rate, Regular Rhythm, Normal S1, Normal S2, No murmurs Abdomen: Bowel Sounds Present, Soft, Non Tender, Non-Distended, No Hepato- splenomegaly Extremities: No edema Skin: No rashes, No breakdown Musculoskeletal: No Tenderness to Palpation of Joints or Extremities Lymphatic: No Cervical, Supraclavicular, or Inguinal Adenopathy Neurological: Cranial nerves II-XII grossly intact Psych/Mental Status: Normal Affect, Appropriate Microbiology Past 72 Hours 12/08/17 11:07 Sputum, Induced/Lukens Gram Stain - Final 12/08/17 11:07 Sputum, Induced/Lukens Respiratory Culture - Final Meth. resistant Staph. aureus Streptococcus agalactiae (B) Laboratory Results 12/13/17 05:00: Diff Path Review Reviewed 12/13/17 11:27: POC Glucose 174 H 12/13/17 18:30: POC Glucose 84 12/13/17 23:05: POC Glucose 109 12/14/17 04:00: WBC 11.6 H, RBC 3.96 L, Hgb 12.3 L, Hct 37.8 L, MCV 95.5 H, MCH 31.1, MCHC 32.5, RDW 15.2 H, RDW Differential 52.8 H, Plt Count 261, MPV 9.8, Immature Gran % (Auto) 0.400, Neut % (Auto) 49.9, Lymph % (Auto) 26.5, [place] % ( Auto) 21.5 H, Eos % (Auto) 1.4, Baso % (Auto) 0.3, Absolute Neuts (auto) 5.8, Absolute Lymphs (auto) 3.07, Total Counted Pending, Differential Comment SEE COMMENT, Diff Path Review July foll, Platelet Estimate ADEQUATE, Anisocytosis RARE, Macrocytosis RARE 12/14/17 04:00: Sodium 140, Potassium 3.6, Chloride 96 L, Carbon Dioxide 33.0 H , Anion Gap 11, BUN 19 H, Creatinine 1.22, Estim Creat Clear Calc 80.58, Est GFR (MDRD) Af Amer 82, Est GFR (MDRD) Non-Af 68, BUN/Creatinine Ratio 15.6, Glucose 91, Calcium 9.0 12/14/17 04:50: POC Glucose 76 Current Medications Bisacodyl (Dulcolax) 5 mg PO DAILY PRN PRN PRN Reason: Constipation Chlordiazepoxide (Librium) 50 mg PO Q8 [facility] Last Admin: 12/14/17 05:01 Dose: 50 mg Chlorhexidine Gluconate () 1 each TOPICAL DAILY [facility] Last Admin: 12/14/17 05:01 Dose: 1 each Dextrose (D50w Syringe) 0 gm IV X1 PRN; Protocol PRN Reason: Hypoglycemia Famotidine (Pepcid) 20 mg PO BID [facility] Last Admin: 12/13/17 21:35 Dose: 20 mg Glucagon () 1 mg IM .X1 PRN PRN Reason: Hypoglycemia Heparin Sodium (Porcine) (Heparin Na) 5,000 unit SC Q8 [facility] Last Admin: 12/14/17 05:01 Dose: 5,000 unit Clindamycin Phosphate 600 mg/ (Dextrose) 54 mls @ 100 mls/hr IV Q8 [facility] Last Admin: 12/14/17 05:02 Dose: 100 mls/hr Insulin Human Lispro (Humalog Kwikpen (Bkc)) 0 unit SQ ACHS [facility] PRN Reason: Protocol Last Admin: 12/14/17 07:42 Dose: Not Given Lorazepam (Ativan) 2 mg IV Q2H PRN PRN; Protocol PRN Reason: CIWA score > 8 but <15 Last Admin: 12/13/17 02:01 Dose: 2 mg Lorazepam (Ativan) 2 mg IV UD PRN; Protocol PRN Reason: CIWA score >/=15. Last Admin: 12/08/17 08:10 Dose: 2 mg Lorazepam (Ativan) 2 mg PO Q2H PRN PRN; Protocol PRN Reason: CIWA score > 8 but <15 Lorazepam (Ativan) 2 mg PO UD PRN; Protocol PRN Reason: CIWA score >/=15. Magnesium Hydroxide (Milk Of Magnesia) 30 ml PO DAILY PRN PRN PRN Reason: Constipation Multivitamins (Multivitamin) 1 tablet PO DAILYCM [facility] Last Admin: 12/14/17 07:42 Dose: 1 tablet Nicotine (Nicoderm Cq (Pbkc)) 21 mg TRANSDERM. DAILY [facility] Last Admin: 12/13/17 09:45 Dose: 21 mg Ondansetron HCl (Zofran) 4 mg IV Q6H PRN PRN PRN Reason: NAUSEA/VOMITING Last Admin: 12/08/17 05:14 Dose: 4 mg Senna/Docusate Sodium (Senokot-S, Eugenie-Colace) 2 tablet PO BID [facility] Last Admin: 12/13/17 21:33 Dose: 2 tablet Sodium Chloride () 5 - 30 ml IV UD PRN PRN Reason: SALINE FLUSH Last Admin: 12/14/17 05:02 Dose: 10 ml Medical Necessity - Tobacco Use Smoking Status: Current every day smoker - Smokes cigarettes. Assessment/Plan All Active Problems Alcohol intoxication (Acute) Pancreatitis (Acute) Alcohol withdrawal (Acute) 47-year-old male with history of alcohol dependence, hypertension, type II DM who was admitted on 12/06/2017 after a binge of alcohol with abdominal pain . He was found to be intoxicated with alcohol levels of 365, elevated lipase and also managed as acute pancreatitis in the ICU. He was initially started on Precedex, got progressively worse with worsening CIWA scores, subsequently got intubated and sedated. 1. Acute respiratory failure, resolving, status post extubation, will continue to wean off oxygen, encourage use of incentive spirometer 2. Acute alcohol withdrawal/DT with chronic alcohol use and dependency, appears to be fairly stable, will continue on Ativan as needed as well as CIWA 3. Possible aspiration pneumonia, on clindamycin 3. Hypokalemia, resolved 4. Acute alcoholic pancreatitis, resolving, on tube feeds 5. Diabetes mellitus type II, blood sugars are electively better controlled, will continue on Lantus to 27 units QHS as well as ISS with accuhecks. 6. Hypertension, controlled, not on medications 7. Depression, off Prozac, on home Seroquel 8. Obesity, BMI of 30.5 9. DVT prophylaxis - Heparin Sc Code Visit Inpatient E&M: 76501 Subs Hosp L2
[2017-12-14 10:56] LABS: Magnesium 2.1 mg/dL (1.6-2.6)
[2017-12-14] MEDS: Famotidine 20 MG Tablet PO ×2 (11:05→21:39)
[2017-12-14] MEDS: Insulin Lispro 100 UNIT/ML INSULN.PEN SQ ×2 (11:06→21:39)
--- NOTE | 2017-12-14 11:52 | CASEMGMT ---
Addendum entered by Kenyetta Worthy 12/14/17 13:36: Pt did tell this SW if he were to go to alcohol rehab from here, his significant other would likely take him. BARRINGTON Junior, BIAS BINDING CUTTER Original Note: Addendum entered by Kenyetta Worthy 12/14/17 12:51: Pt will not need to be in contact precautions when he leaves here. BARRINGTON Junior, BIAS BINDING CUTTER Original Note: SW spoke w/pt in room in regard to discharge planning, home situation. Pt states had been living the last four months with his significant other Carin on [facility] in [place]. Pt does not think he can go back home however. Pt is interested in placement for his alcohol abuse. Pt was in [facility], he thinks in spring. Pt was to follow up with outpt services at [facility], but was not. Pt denies using any other drugs. Pt states he drinks 24 beers/day, has been drinking since the age of 17. Pt states has tried to stop drinking in the past. SW asked pt about depression and anxiety, pt confirms these diagnoses. Pt states has been to [facility] in the past, just recently had an assessment there and would like to follow up. He has not seen the psychiatrist yet, they were to call him with an appointment time, pt states they were very backed up. Pt states Dr. Shoemaker has put him on Prozac in the past but after a month it still did not help. Pt denies being suicidal, denies ever feeling suicidal. Pt states he has never had any hospitalizations for psychiatric reasons. SW asked about family, pt has a 12 year old son who stays with his mother, pt does owe child support and is trying to catch up. Otherwise, pt denies any Children's Services involvement. Pt agreeable to placement for alcohol rehab, but also asked about longterm placement, pt states his legs are atrophied. SW explained will see how pt does w/PT and OT. PT and OT did see pt, they state he walked about 10 feet. Pt has poor endurance but is strong. SW will check in w/pt regarding discharge plan, also need to find out if being on precautions for MRSA in the sputum will be a hindrance to getting pt placed in an alcohol rehab. SW called Vamshi from [facility], he states to call Roel Shore([phone]) from [facility] for options for this pt. SW will also check w/RN regarding how long pt needs to be on precautions, will follow up shortly. BARRINGTON Junior, BIAS BINDING CUTTER
[2017-12-14 12:30] LABS: Bedside Glucose 165 mg/dL (70-110)
--- NOTE | 2017-12-14 13:22 | CASEMGMT ---
SW spoke with patient and asked if he would like to go to a nursing facility for rehab or alcohol rehab. He said he [place] go [place] [facility] [place] and then [place] rehab. He had no preference for [place]. SW to work on [place] for patient. Jaylene CHACKO MSW
--- NOTE | 2017-12-14 13:31 | CASEMGMT ---
Addendum entered by Kenyetta Worthy 12/14/17 13:45: SCOUT also called [facility], amol w/Carin and faxed referral. BARRINGTON Junior, ENTRY LEVEL FINANCE Original Note: SCOUT called [facility] and faxed referral. SCOUT will continue to follow. BARRINGTON Junior, ENTRY LEVEL FINANCE
[2017-12-14] MEDS: Clindamycin HCl 150 MG Capsule 600 MG PO ×2 (13:36→21:39)
[2017-12-14 13:51] LABS: Pathologist Review Reviewed
[2017-12-14 16:40] LABS: Bedside Glucose 147 mg/dL (70-110)
[2017-12-14] MEDS: Acetaminophen 325 MG Tablet 650 MG PO (17:11)
[2017-12-14 21:51] LABS: Bedside Glucose 246 mg/dL (70-110)
[2017-12-15] VITALS (12 sets, daily range): BP systolic 127–141; BP diastolic 76–87; PULSE 66–87; RESP 14–23; TEMP 36.7–37.5; O2SAT 93–98
[2017-12-15] MEDS: Acetaminophen 325 MG Tablet 650 MG PO (00:34)
[2017-12-15] MEDS: Clindamycin HCl 150 MG Capsule 600 MG PO ×3 (05:40→22:08)
[2017-12-15] MEDS: Heparin Injection (Vial) 5,000 UNIT/ML VIAL 5000 UNIT SC ×3 (05:40→22:08)
[2017-12-15 06:23] LABS: Albumin, Serum 2.7 g/dL (3.2-5.0); BUN 21 mg/dL (7-18); BUN/Creat Ratio 17.1 RATIO (10-20); Calcium,Total 8.9 mg/dL (8.5-10.1); Chloride 100 mmol/L (98-107); Creatinine, Serum 1.23 mg/dL (0.70-1.30); EST Glomerular Filtration Rate 67 mL/min (>60); Est Glom Filt Rate - Afr Amer 81 mL/min (>60); Estimated Creatinine Clearance 79.93 ml/min; Glucose 242 mg/dL (74-106); Phosphorus 4.3 mg/dL (2.5-4.9); Potassium 3.7 mmol/L (3.5-5.1); Sodium Level 139 mmol/L (136-145)
[2017-12-15 06:25] LABS: Absolute Lymphocyte Count 2.64 X10^3/ul (0.83-4.51); Absolute Neutrophil Count 4.1 X10^3/uL (2.0-7.7); Basophil# 0.08 X10^3/uL; Basophil% 0.8 % (0-1); Eosinophil# 0.29 X10^3/uL; Hematocrit 36.1 % (40-54); Hemoglobin 12.2 g/dl (13.0-16.5); Lymphocyte # 2.64 X10^3/ul (4.0); Lymphocyte % 27.6 % (19-41); Mean Corp Hgb Conc 33.8 g/gl (32-36); Mean Corpuscular Hgb 31.8 pg (27.0-32.0); Mean Platelet Vol. 10.2 fl (6.2-12.0); Monocyte# 2.38 X10^3/uL; Monocyte% 24.9 % (0-10); Neutrophil # 4.11 X10^3/uL (2.7-7.7); Platelet Count 372 K/mm3 (150-450); RBC Distribution Width CV 14.4 % (11.6-14.6); RBC Distribution Width SD 47.9 fl (35.1-43.9); Red Blood Count 3.84 M/mm3 (4.6-6.2); White Blood Count 9.6 K/mm3 (4.4-11.0)
[2017-12-15 06:27] LABS: Differential Indicated SCAN CRITERIA MET; POSITIVE COUNT NO; POSITIVE DIFFERENTIAL YES; POSITIVE MORPHOLOGY NO
[2017-12-15 06:55] LABS: Bedside Glucose 219 mg/dL (70-110)
[2017-12-15] MEDS: Insulin Lispro 100 UNIT/ML INSULN.PEN SQ ×3 (07:42→22:08)
[2017-12-15] MEDS: Multivitamins,Therapeutic Tablet 1 TABLET PO (07:42)
[2017-12-15] MEDS: Famotidine 20 MG Tablet PO ×2 (07:42→22:10)
--- NOTE | 2017-12-15 10:03 | CASEMGMT ---
SCOUT faxed a referral to [facility]. SCOUT called [facility] and spoke with Rehana who is covering for Mary. She will get back to regarding patient. SCOUT then called [facility] and Carin was in her morning meeting. Jaylene CHACKO MSW
--- NOTE | 2017-12-15 10:24 | PN_ITS ---
Patient Problems: Active and Suspected Problems Alcohol intoxication (Acute) Pancreatitis (Acute) Subjective: Patient did well overnight. Patient was transferred from the intensive care unit was able to be weaned to room air. No complaints this morning. Patient tolerating p.o. diet. - Physical Exam General: Alert, Oriented x3, Cooperative, No apparent distress, - - Speaking in full sentences. HEENT: Atraumatic, PERRLA, EOMI, Normocephalic, - - Slight scleral injection without icterus Oral: Moist Mucosa, No Gingival or Mucosal Lesions/ Ulcerations Neck: Supple, No JVD, No Nodes, Trachea Midline Lungs: No rhonchi, No wheeze, No rales, Diminished, - - Symmetric expansion. No dullness to percussion. Cardiovascular: Regular rate, Regular Rhythm, Normal S1, Normal S2, No murmurs, No rub noted, No Gallop Abdomen: Bowel Sounds Present, Soft, Non Tender, Non-Distended Extremities: No clubbing, No cyanosis, Capillary Refill Less than 3 Seconds, Edema - Trace lower extremity Skin: No rashes, No breakdown Musculoskeletal: No Tenderness to Palpation of Joints or Extremities, No Muscle Wasting Lymphatic: No Cervical, Supraclavicular, or Inguinal Adenopathy Neurological: Cranial nerves II-XII grossly intact, Neuro grossly intact, Motor Exam 5/5 strength throughout Psych/Mental Status: Normal Affect, Appropriate Vital Signs Temp Pulse Resp BP Pulse Ox 36.7 C 68 16 133/84 H 94 12/15/17 08:00 12/15/17 08:00 12/15/17 08:00 12/15/17 08:00 12/15/17 08:00 Oxygen Flow Rate (L/min) 2 Oxygen Delivery Method Room Air Weight: 97.5 kg Body Mass Index (BMI) 29.9 Intake and Output for Last 24 Hours 12/13/17 12/14/17 12/15/17 23:59 23:59 23:59 Intake Total 3122 / 3122 1125 / 1125 360 / 360 Output Total 2850 / 2850 3125 / 3125 450 / 450 Balance 272 / 272 -1999 / -1999 - / Laboratory Tests Past 24 Hrs 12/14/17 12/14/17 12/15/17 04:00 04:00 05:30 WBC 9.6 RBC 3.84 L Hgb 12.2 L Hct 36.1 L MCV 94.0 MCH 31.8 MCHC 33.8 RDW 14.4 RDW Differential 47.9 H Plt Count 372 MPV 10.2 Immature Gran % (Auto) 0.700 Neut % (Auto) 43.0 L Lymph % (Auto) 27.6 [place] % (Auto) 24.9 H Eos % (Auto) 3.0 Baso % (Auto) 0.8 Absolute Neuts (auto) 4.1 Absolute Lymphs (auto) 2.64 Total Counted Not Reportable Not Reportable Diff Path Review Reviewed Sodium Potassium Chloride Carbon Dioxide BUN Creatinine Estim Creat Clear Calc Est GFR (MDRD) Af Amer Est GFR (MDRD) Non-Af BUN/Creatinine Ratio Glucose Calcium Phosphorus Magnesium 2.1 Albumin 12/15/17 05:30 WBC RBC Hgb Hct MCV MCH MCHC RDW RDW Differential Plt Count MPV Immature Gran % (Auto) Neut % (Auto) Lymph % (Auto) [place] % (Auto) Eos % (Auto) Baso % (Auto) Absolute Neuts (auto) Absolute Lymphs (auto) Total Counted Diff Path Review Sodium 139 Potassium 3.7 Chloride 100 Carbon Dioxide 30.0 BUN 21 H Creatinine 1.23 Estim Creat Clear Calc 79.93 Est GFR (MDRD) Af Amer 81 Est GFR (MDRD) Non-Af 67 BUN/Creatinine Ratio 17.1 Glucose 242 H Calcium 8.9 Phosphorus 4.3 Magnesium Albumin 2.7 L POC Glucose 12/15/17 12/14/17 12/14/17 06:45 21:37 16:29 POC Glucose 219 H 246 H 147 H 12/14/17 10:59 POC Glucose 165 H Medical Necessity - Tobacco Use Smoking Status: Current every day smoker - Smokes cigarettes. Assessment/Plan All Active Problems Alcohol intoxication (Acute) Pancreatitis (Acute) Alcohol withdrawal (Acute) RECOMMENDATIONS: 1. Walking oximetry prior to discharge 2. Continue with incentive spirometer 3. Hemodynamically stable on room air, will sign off from a critical care perspective 4. Transition to Omnicef given resistance pattern IMPRESSIONS: 1. Acute respiratory failure Patient self extubated, but appears to be doing well. Patient has been weaned to room air at rest. Patient will need a walking oximetry prior to discharge, but with aggressive incentive spirometer this will likely not require supplemental oxygen. No outpatient follow-up would be indicated. Hemodynamically stable on room air. Will sign off from a critical care perspective. 2. Alcoholic pancreatitis The patient was initially treated with n.p.o. status and supplemental IV fluids. His pain and lipase levels improved. Following intubation, he was started on tube feeds, which he is currently tolerating. Patient did have bowel movement yesterday and continues to tolerate tube feeds. 3. Chronic alcohol dependency with acute withdrawal/delirium tremens The patient did have to be electively intubated on December 08, after he developed refractory agitation and delirium. Patient is still having significant difficulty with agitation. Patient appears to be doing well. Likely okay to discontinue CIWA protocol 4. Diabetes mellitus/hypertension/depression/anxiety tobacco dependency Complicates care, management, recovery and prognosis. Transition to sliding scale insulin with meals only. Likely okay to discontinue insulin if blood sugars appropriate over the next 24 hours. Continue nicotine replacement therapy. Code Visit Inpatient E&M: 00931 Subs Hosp L2
[2017-12-15] MEDS: Cefdinir 300 MG Capsule PO ×2 (11:11→22:09)
[2017-12-15 11:15] LABS: Bedside Glucose 108 mg/dL (70-110)
--- NOTE | 2017-12-15 12:42 | PCM.PN.HOSP ---
Patient Problems: Active and Suspected Problems Alcohol intoxication (Acute) Pancreatitis (Acute) Subjective: Patient was seen and examined. He appears improved. Complained of heartburn, improved with mylanta. Waiting for insurance precertification for discharge to [facility] facility Objective: General: Alert, Oriented x3, Cooperative, off oxygen HEENT: Atraumatic, PERRLA, EOMI, Normocephalic Oral: Moist Mucosa Neck: Supple, No JVD, Negative Carotid Bruits Lungs: Clear to auscultation, Normal air movement Cardiovascular: Regular rate, Regular Rhythm, Normal S1, Normal S2, No murmurs Abdomen: Bowel Sounds Present, Soft, Non Tender, Non-Distended, No Hepato-splenomegaly Extremities: No edema Skin: No rashes, No breakdown Musculoskeletal: No Tenderness to Palpation of Joints or Extremities Lymphatic: No Cervical, Supraclavicular, or Inguinal Adenopathy Neurological: Cranial nerves II-XII grossly intact Psych/Mental Status: Normal Affect, Appropriate Vitals/I&O's: Vital Signs Temp Pulse Resp BP Pulse Ox 98.0 F 69 16 133/84 H 94 12/15/17 08:00 12/15/17 11:00 12/15/17 08:00 12/15/17 08:00 12/15/17 08:00 Oxygen Flow Rate (L/min) 2 Oxygen Delivery Method Room Air Weight: 97.5 kg Body Mass Index (BMI) 29.9 Intake and Output for Last 24 Hours 12/13/17 12/14/17 12/15/17 23:59 23:59 23:59 Intake Total 3122 / 3122 1125 / 1125 660 / 660 Output Total 2850 / 2850 3125 / 3125 800 / 800 Balance 272 / 272 -2000 / -2000 -140 / -140 Laboratory Results 12/14/17 04:00: Total Counted Not Reportable, Diff Path Review Reviewed 12/14/17 16:29: POC Glucose 147 H 12/14/17 21:37: POC Glucose 246 H 12/15/17 05:30: WBC 9.6, RBC 3.84 L, Hgb 12.2 L, Hct 36.1 L, MCV 94.0, MCH 31.8, MCHC 33.8, RDW 14.4, RDW Differential 47.9 H, Plt Count 372, MPV 10.2, Immature Gran % (Auto) 0.700, Neut % (Auto) 43.0 L, Lymph % (Auto) 27.6, Delta % (Auto) 24.9 H, Eos % (Auto) 3.0, Baso % (Auto) 0.8, Absolute Neuts (auto) 4.1, Absolute Lymphs (auto) 2.64, Total Counted Not Reportable 12/15/17 05:30: Sodium 139, Potassium 3.7, Chloride 100, Carbon Dioxide 30.0, BUN 21 H, Creatinine 1.23, Estim Creat Clear Calc 79.93, Est GFR (MDRD) Af Amer 81, Est GFR (MDRD) Non-Af 67, BUN/Creatinine Ratio 17.1, Glucose 242 H, Calcium 8.9, Phosphorus 4.3, Albumin 2.7 L 12/15/17 06:45: POC Glucose 219 H 12/15/17 11:09: POC Glucose 108 Current Medications Acetaminophen (Tylenol) 650 mg PO Q6H PRN PRN PRN Reason: PAIN Last Admin: 12/15/17 00:34 Dose: 650 mg Bisacodyl (Dulcolax) 5 mg PO DAILY PRN PRN PRN Reason: Constipation Cefdinir (Omnicef [Equiv]) 300 mg PO BID [facility] Last Admin: 12/15/17 11:11 Dose: 300 mg Clindamycin HCl (Cleocin) 600 mg PO Q8 [facility] Last Admin: 12/15/17 05:40 Dose: 600 mg Dextrose (D50w Syringe) 0 gm IV X1 PRN; Protocol PRN Reason: Hypoglycemia Famotidine (Pepcid) 20 mg PO BID [facility] Stop: 12/15/17 22:01 Last Admin: 12/15/17 07:42 Dose: 20 mg Glucagon () 1 mg IM .X1 PRN PRN Reason: Hypoglycemia Heparin Sodium (Porcine) (Heparin Na) 5,000 unit SC Q8 [facility] Last Admin: 12/15/17 05:40 Dose: 5,000 unit Insulin Human Lispro (Humalog Kwikpen (Bkc)) 0 unit SQ ACHS NIRMAL PRN Reason: Protocol Last Admin: 12/15/17 11:10 Dose: Not Given Lorazepam (Ativan) 2 mg IV Q2H PRN PRN; Protocol PRN Reason: CIWA score > 8 but <15 Last Admin: 12/13/17 02:01 Dose: 2 mg Lorazepam (Ativan) 2 mg IV UD PRN; Protocol PRN Reason: CIWA score >/=15. Last Admin: 12/08/17 08:10 Dose: 2 mg Lorazepam (Ativan) 2 mg PO Q2H PRN PRN; Protocol PRN Reason: CIWA score > 8 but <15 Lorazepam (Ativan) 2 mg PO UD PRN; Protocol PRN Reason: CIWA score >/=15. Magnesium Hydroxide (Milk Of Magnesia) 30 ml PO DAILY PRN PRN PRN Reason: Constipation Multivitamins (Multivitamin) 1 tablet PO DAILYCM NIRMAL Last Admin: 12/15/17 07:42 Dose: 1 tablet Nicotine (Nicoderm Cq (Pbkc)) 21 mg TRANSDERM. DAILY NIRMAL Last Admin: 12/15/17 07:42 Dose: 21 mg Ondansetron HCl (Zofran) 4 mg IV Q6H PRN PRN PRN Reason: NAUSEA/VOMITING Last Admin: 12/08/17 05:14 Dose: 4 mg Sodium Chloride () 5 - 30 ml IV UD PRN PRN Reason: SALINE FLUSH Last Admin: 12/14/17 05:02 Dose: 10 ml Medical Necessity - Tobacco Use Smoking Status: Current every day smoker - Smokes cigarettes. Assessment/Plan All Active Problems Alcohol intoxication (Acute) Pancreatitis (Acute) Alcohol withdrawal (Acute) 47-year-old male with history of alcohol dependence, hypertension, type II DM who was admitted on 12/06/2017 after a binge of alcohol with abdominal pain . He was found to be intoxicated with alcohol levels of 365, elevated lipase and also managed as acute pancreatitis in the ICU. He was initially started on Precedex, got progressively worse with worsening CIWA scores, subsequently got intubated and sedated. 1. Acute respiratory failure, resolving, status post extubation, will continue to wean off oxygen, encourage use of incentive spirometer 2. Acute alcohol withdrawal/DT with chronic alcohol use and dependency, resolved, CIWA scores are very low 3. Possible aspiration pneumonia, on clindamycin and cefdinir 3. Hypokalemia, resolved 4. Acute alcoholic pancreatitis, resolved, tolerating regular diet 5. Diabetes mellitus type II, blood sugars are slightly better controlled, on Lantus to 27 units QHS as well as ISS with accuhecks. 6. Hypertension, controlled, not on medications 7. Depression, off Prozac, on home Seroquel 8. Obesity, BMI of 30.5 9. DVT prophylaxis - Heparin Sc Code Visit Inpatient E&M: 04541 Subs Hosp L2
--- NOTE | 2017-12-15 16:14 | CASEMGMT ---
Per Lila BUTTERFIELD, [facility] has accepted pt at this time and is starting precert for pt at this time. SStreza MORRIS CM
[2017-12-15] MEDS: Bisacodyl 5 MG Tablet PO (17:29)
[2017-12-15 17:30] LABS: Bedside Glucose 230 mg/dL (70-110)
[2017-12-15 22:46] LABS: Bedside Glucose 278 mg/dL (70-110)
[2017-12-16] VITALS (11 sets, daily range): BP systolic 115–137; BP diastolic 70–88; PULSE 64–84; RESP 16–24; TEMP 36.6–37.4; O2SAT 94–96
[2017-12-16] MEDS: Clindamycin HCl 150 MG Capsule 600 MG PO ×3 (06:02→21:24)
[2017-12-16] MEDS: Heparin Injection (Vial) 5,000 UNIT/ML VIAL 5000 UNIT SC ×3 (06:03→21:24)
[2017-12-16 06:37] LABS: Albumin, Serum 2.7 g/dL (3.2-5.0); BUN 19 mg/dL (7-18); BUN/Creat Ratio 17.4 RATIO (10-20); Calcium,Total 9.2 mg/dL (8.5-10.1); Chloride 102 mmol/L (98-107); Creatinine, Serum 1.09 mg/dL (0.70-1.30); EST Glomerular Filtration Rate 77 mL/min (>60); Est Glom Filt Rate - Afr Amer 93 mL/min (>60); Estimated Creatinine Clearance 90.19 ml/min; Glucose 140 mg/dL (74-106); Phosphorus 3.2 mg/dL (2.5-4.9); Potassium 3.7 mmol/L (3.5-5.1); Sodium Level 138 mmol/L (136-145)
[2017-12-16] MEDS: Insulin Lispro 100 UNIT/ML INSULN.PEN SQ ×4 (08:09→21:24)
[2017-12-16] MEDS: Multivitamins,Therapeutic Tablet 1 TABLET PO (08:10)
[2017-12-16] MEDS: Acetaminophen 325 MG Tablet 650 MG PO ×2 (08:10→20:23)
[2017-12-16] MEDS: Cefdinir 300 MG Capsule PO ×2 (09:05→21:24)
--- NOTE | 2017-12-16 10:47 | CASEMGMT ---
[facility] was going to send someone to see patient. SCOUT called [facility] and told them that patient is going to [facility]. SCOUT confirmed with Kandi at [facility] they started the pre-cert. SW will notify patient. Plan: [facility] under skilled level of care pending pre-cert. Jaylene CHACKO MSW
[2017-12-16 11:21] LABS: Bedside Glucose 160 mg/dL (70-110)
[2017-12-16 11:45] LABS: Bedside Glucose 199 mg/dL (70-110)
--- NOTE | 2017-12-16 14:52 | CASEMGMT ---
SCOUT let patient know that [facility] will take him at d/c and we are just waiting on insurance to approve. SCOUT told him if we don't hear today it won't be until Tuesday or Tuesday. Patient was fine with this. Plan: d/c to [facility] pending insurance approval. Jaylene DAWN
--- NOTE | 2017-12-16 15:59 | CASEMGMT ---
Still have not received insurance approval for patient to go to [facility]. Green sheet on chart in case [facility] gets pre-cert and calls PCU. Jaylene DAWN Patient cannot go to [facility] unless [facility] calls with pre-cert. Jaylene CHACKO MSW
--- NOTE | 2017-12-16 16:45 | PCM.TXEXTCAR ---
- Diet 12/14/17 06:04 Diet: Cardiac diet, 2200 calorie controlled Is pt able to select menu?: Yes - Routine Orders/Code Status Routine Lab Work: CBC - in 3 days, BMP - in 3 days Code Status: Full Code - Wound(s) Right foot, third-fifth digits Wound Type: Amputation - Therapies Physical Therapy: Eval and Treat Occupational Therapy: Eval and Treat Speech Therapy: Eval and Treat - Allergies/Procedures Done in Hospital Allergies/Adverse Reactions: Allergies bupropion HCl [From Wellbutrin] Allergy (Verified 12/06/17 18:18) Other seizures Procedures: Intubation - Type of Care/Length of Stay Estimated LOS: Convalescent Care Less Than 30 days Type of Care Needed: Skilled Rehab Potential: Good Prognosis: Good - Additional Orders/Day of Discharge Additional Orders: Accucheks ACHS, may need to titrate insulin. Day of Discharge: 12/16/17 - Dietary and Speech Recommendations Dietitian Recommendations/Changes: Rec diet change to 2200 rocío / Cardiac d/t PMH. - Follow Up Care Primary Care Physician: Jose Enrique Shoemaker MD [Primary Care Provider] - Please follow up with your Primary Care Physician in: within 2 weeks of discharge Please Follow Up With: candie Ambrocio, N.P.
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
[2017-12-16] MEDS: Mag Hydrox/Al Hydrox/Simeth 30 ML UDC PO (16:59)
[2017-12-16 17:05] LABS: Bedside Glucose 203 mg/dL (70-110)
[2017-12-16] MEDS: MELATONIN 3 MG TABLET PO (21:24)
[2017-12-16] MEDS: traZODone 50 MG Tablet PO (21:24)
[2017-12-16 22:10] LABS: Bedside Glucose 296 mg/dL (70-110)
[2017-12-17 03:00] VITALS: PULSE 70
[2017-12-17 03:10] VITALS: BP 133/95; PULSE 67; RESP 14; TEMP 36.3; O2SAT 95
[2017-12-17] MEDS: Clindamycin HCl 150 MG Capsule 600 MG PO (06:36)
[2017-12-17 07:01] LABS: Bedside Glucose 186 mg/dL (70-110)
[2017-12-17 07:50] VITALS: BP 116/81; PULSE 96; RESP 18; TEMP 36.6; O2SAT 95
--- NOTE | 2017-12-17 08:18 | NURSING ---
Discharge order reviewed and report called to receiving ARTURO Noe at [facility]. Pt given locked up personal items back, including cigarettes and insulin pens. Pt given discharge packet and taken down in a wheelchair by this RN. Pt escorted into [facility] by this RN and pt's girlfriend with paperwork in hand. You MORRIS
== END 2017-12-17 08:10 | disposition skilled nursing facility (03) | DRG 204 ==
LOC: ED 20:10 → ICU 22:15 → PCU 12-14 11:33
PROVIDERS: Internal Medicine; Internal Medicine Critical Care Medicine; Admitting Provider Hospitalist; Emergency Provider Emergency Medicine; Family Provider Family Medicine; PCP Family Medicine; Visit Provider Internal Medicine
DX: K85.20 Alcohol induced acute pancreatitis without necrosis or infection (principal); F10.231 Alcohol dependence with withdrawal delirium; F10.229 Alcohol dependence with intoxication, unspecified; J96.00 Acute respiratory failure, unspecified whether with hypoxia or hypercapnia; E11.65 Type 2 diabetes mellitus with hyperglycemia; T51.0X1A Toxic effect of ethanol, accidental (unintentional), initial encounter; Y90.8 Blood alcohol level of 240 mg/100 ml or more; E87.6 Hypokalemia; K70.10 Alcoholic hepatitis without ascites; E66.9 Obesity, unspecified; Z68.29 Body mass index [BMI] 29.0-29.9, adult; G89.4 Chronic pain syndrome; I10 Essential (primary) hypertension; E78.5 Hyperlipidemia, unspecified; F17.210 Nicotine dependence, cigarettes, uncomplicated; F41.9 Anxiety disorder, unspecified; F32.9 Major depressive disorder, single episode, unspecified; Z90.81 Acquired absence of spleen
CPT/HCPCS: 31500; 31720; 36415; 36600; 71045; 80048; 80069; 80076; 80202; 80307; 80320; 82550; 82803; 82962; 83690; 83735; 83930; 83935; 84100; 84300; 84478; 85025; 85027; 85610; 85730; 87070; 87077; 87186; 87205; 87641; 94002; 94003; 97110; 97162; 97166; 97530; 97535; 97802; 97803; 99251; 99285; J7030; J7040; J7050; J7120; A4216; G0463; G0480; J0295; J0330; J0610; J1940; J2405; J3490

== ENCOUNTER 2017-12-29 10:34 | Inpatient (IN) | payer MEDICAID, SELFPAY ==
[2017-12-29] VITALS (10 sets, daily range): BP systolic 140–170; BP diastolic 86–117; PULSE 102–120; RESP 16; TEMP 36.2–37.1; O2SAT 93–97; BMI 25.1; BMI 28.2
--- NOTE | 2017-12-29 10:48 | EKG12_ITS ---
Test Reason : SUBSTANCE ABUSE Blood Pressure : / mmHG Vent. Rate : 110 BPM Atrial Rate : 110 BPM P-R Int : 152 ms QRS Dur : 088 ms QT Int : 360 ms P-R-T Axes : 060 -69 052 degrees QTc Int : 487 ms Sinus tachycardia Possible Left atrial enlargement Left anterior fascicular block Abnormal ECG Confirmed by ANGELINA TRAMMELL, FIORELLA ([id number]), editorial director RACHEL CALDERÓN ([id number]) on 01/02/2018 2:25:17 PM Referred By: SOREN Confirmed By:FIORELLA ALFARO MD
--- NOTE | 2017-12-29 10:49 | ED.VISSUMM ---
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 Previous withdrawal episodes have resulted in DTs and seizures, he was detoxed recently at [facility] did not stay sober for a long, he indicates that he has a brother who lives in [place] and the brother found a detox facility inpatient, 1 year duration, that he is eligible for but he must be sober when he presents to this facility, patient is asking to be detoxed week and to obtain care at this facility in [place] He also has hypertension diabetes he is a smoker he is taken no meds for at least 3 or 4 days, he has no complaints of head neck chest or abdominal pain Physical Examination: [] His blood pressure is 150/110 his heart rate is 120 he smells of alcohol he has a slight slurred speech she is awake and alert directable cooperative moving all 4 extremities he has an obvious deformity to his left foot from the prior prior partial irritation as above his HEENT exam is unremarkable no jaundice neck supple the lungs are clear the heart tones are tachycardic to 120 the abdomen soft nontender he has a midline scar from the above neurologically he is awake alert moving all 4 cooperative at this time no delirium no confusion no current signs of DTs he does have a slight tremor Test Results: [] Emergency Department Course and Treatment: [] Given all of the above and his age his complaints we will start with a conference of medical evaluation, he was started on IV fluids Ativan and phenobarbital, we will attempt to control his blood pressure, check his diabetes, and have asked the detox service team to see him for admission The patient's troponin returned slightly elevated at 0.05, see that report, his glucose was 500, the alcohol was about 430, he had a slight anion gap, he was given IV fluids and IV insulin, serum ketones are pending, the [facility] detox team has seen the patient they spoke with the hospitalist and arrange for his admission, I discussed all of the above findings with the hospitalist they are aware of the above and will further monitor his troponin chemistry panels glucose etc. and provide appropriate care. The patient's resting comforting the bed at this time in no distress Treatment Plan: [] Disposition: [] Admit stable Impression: [] Alcohol withdrawal, alcohol abuse, history of alcohol-related seizures and DTs diabetes noncompliance This note was generated with Marqui dictation software. It may contain incorrect words, spelling, and punctuation that were not noted in review of the chart prior to signing ED Disposition - Plan for ED Patient: Chief Complaint: Substance Abuse Referrals: Jose Enrique Shoemaker MD [Primary Care Provider] -
--- NOTE | 2017-12-29 10:52 | ED.DCSUM_ITS ---
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 Previous withdrawal episodes have resulted in DTs and seizures, he was detoxed recently at [facility] did not stay sober for a long, he indicates that he has a brother who lives in [place] and the brother found a detox facility inpatient, 1 year duration, that he is eligible for but he must be sober when he presents to this facility, patient is asking to be detoxed week and to obtain care at this facility in [place] He also has hypertension diabetes he is a smoker he is taken no meds for at least 3 or 4 days, he has no complaints of head neck chest or abdominal pain Physical Examination: [] His blood pressure is 150/110 his heart rate is 120 he smells of alcohol he has a slight slurred speech she is awake and alert directable cooperative moving all 4 extremities he has an obvious deformity to his left foot from the prior prior partial irritation as above his HEENT exam is unremarkable no jaundice neck supple the lungs are clear the heart tones are tachycardic to 120 the abdomen soft nontender he has a midline scar from the above neurologically he is awake alert moving all 4 cooperative at this time no delirium no confusion no current signs of DTs he does have a slight tremor Test Results: [] Emergency Department Course and Treatment: [] Given all of the above and his age his complaints we will start with a conference of medical evaluation, he was started on IV fluids Ativan and phenobarbital, we will attempt to control his blood pressure, check his diabetes, and have asked the detox service team to see him for admission The patient's troponin returned slightly elevated at 0.05, see that report, his glucose was 500, the alcohol was about 430, he had a slight anion gap, he was given IV fluids and IV insulin, serum ketones are pending, the [facility] detox team has seen the patient they spoke with the hospitalist and arrange for his admission, I discussed all of the above findings with the hospitalist they are aware of the above and will further monitor his troponin chemistry panels glucose etc. and provide appropriate care. The patient's resting comforting the bed at this time in no distress Treatment Plan: [] Disposition: [] Admit stable Impression: [] Alcohol withdrawal, alcohol abuse, history of alcohol-related seizures and DTs diabetes noncompliance This note was generated with Wanna Migrate dictation software. It may contain incorrect words, spelling, and punctuation that were not noted in review of the chart prior to signing ED Disposition - Plan for ED Patient: Chief Complaint: Substance Abuse Referrals: Jose Enrique Shoemaker MD [Primary Care Provider] -
[2017-12-29] MEDS: amLODIPine 10 MG Tablet PO (11:35)
[2017-12-29] MEDS: 0.9% Normal Saline 1,000 ML 125 ML IV (11:35)
[2017-12-29 11:40] LABS: Absolute Neutrophil Count 8.3 X10^3/uL (2.0-7.7); Basophil% 0.8 % (0-1); Eosinophil# 0.07 X10^3/uL; Eosinophils% 0.6 % (0-5); Hematocrit 44.3 % (40-54); Hemoglobin 15.3 g/dl (13.0-16.5); Mean Corp Hgb Conc 34.5 g/gl (32-36); Mean Corpuscular Hgb 31.4 pg (27.0-32.0); Mean Platelet Vol. 9.6 fl (6.2-12.0); Monocyte# 1.08 X10^3/uL; Neutrophil # 8.31 X10^3/uL (2.7-7.7); Neutrophil % 69.4 % (47-70); Platelet Count 727 K/mm3 (150-450); RBC Distribution Width CV 14.9 % (11.6-14.6); RBC Distribution Width SD 48.4 fl (35.1-43.9); Red Blood Count 4.87 M/mm3 (4.6-6.2)
[2017-12-29 11:42] LABS: POSITIVE COUNT NO; POSITIVE DIFFERENTIAL NO; POSITIVE MORPHOLOGY NO
--- NOTE | 2017-12-29 11:45 | ED.RN ---
[facility] ADVISED NOT TO GIVE MEDICATIONS AT THIS TIME DUE TO PATIENT HAS TO BE IN WITHDRAWL. SPOKE WITH DR. MATA. OKAY TO HOLD OFF ON MEDICATION FOR NOW.
[2017-12-29 11:59] LABS: AST(SGOT) 37 U/L (15-37); Alanine Aminotransfer ALT/SGPT 35 U/L (16-61); Albumin, Serum 3.6 g/dL (3.2-5.0); Alkaline Phosphatase 143 U/L (45-117); Anion Gap 19 (5-15); BUN 6 mg/dL (7-18); BUN/Creat Ratio 5.4 RATIO (10-20); Bilirubin, Direct 0.18 mg/dL (0.00-0.30); Calcium,Total 8.3 mg/dL (8.5-10.1); Chloride 92 mmol/L (98-107); Creatinine, Serum 1.11 mg/dL (0.70-1.30); EST Glomerular Filtration Rate 76 mL/min (>60); Est Glom Filt Rate - Afr Amer 91 mL/min (>60); Estimated Creatinine Clearance 88.57 ml/min; Globulin 4.8 g/dL (2.2-4.2); Glucose 505 mg/dL (74-106); Lipase 404 U/L (73-393); Potassium 3.3 mmol/L (3.5-5.1); Protein, Total 8.4 g/dL (6.4-8.2); Sodium Level 133 mmol/L (136-145)
[2017-12-29] MEDS: Ondansetron 4 MG/2 ML Vial IV (12:09)
[2017-12-29] MEDS: LORazepam 2 MG/ML Syringe IV ×5 (12:10→22:05)
--- NOTE | 2017-12-29 12:13 | ED.RN ---
ETOH 431 PER LAB, AND PRIMARY RN NOTIFIED
[2017-12-29] MEDS: Phenobarbital Sodium 130 MG/ML Vial 100 MG IV (12:20)
[2017-12-29] MEDS: 0.9% Normal Saline 1,000 ML 999 ML IV (12:27)
[2017-12-29] MEDS: Insulin Lispro 100 UNIT/ML INSULN.PEN 10 UNIT IV (12:32)
[2017-12-29 12:43] LABS: Mucous, Urine 0 SEEN /hpf (<or=2+); Red Blood Cells-Urine 0 SEEN /hpf (0-5); Squamous Epithelial Cells - UA 0 SEEN /hpf (0-5); White Blood Cells 0 SEEN /hpf (0-5)
[2017-12-29 12:48] LABS: Color, Urine Yellow (Yellow); Glucose, Dipstick 1000 mg/dl (Normal); Ketone-Dipstick 50 mg/dl (Negative); Leukocyte Esterase-Dipstick Negative /ul (Negative); Nitrite-Dipstick Negative (Negative); Occult Blood-Urine 50 /ul (Negative); Protein-Dipstick 30 mg/dl (Negative); Urine Bilirubin Dipstick Negative (Negative); Urine Clarity Clear (Clear); Urine Urobilinogen Normal (Normal)
[2017-12-29 13:06] LABS: Bacteria RARE /hpf (None Seen)
[2017-12-29 14:30] LABS: Bedside Glucose 360 mg/dL (70-110)
[2017-12-29 14:39] LABS: Amphetamine Urine VISTA NEGATIVE (<1000 ng/mL); Barbiturate Urine VISTA NEGATIVE (< 200 ng/mL); Benzodiazepine Urine VISTA POSITIVE (< 200 ng/mL); Cocaine Urine VISTA NEGATIVE (< 300 ng/mL); Ecstacy Urine VISTA NEGATIVE (< 500 ng/mL); Methadone Urine VISTA NEGATIVE (< 300 ng/mL); PCP Urine VISTA NEGATIVE (< 25 ng/mL); THC Urine VISTA NEGATIVE (< 50 ng/mL); Vista UDS pH Range 5
[2017-12-29] MEDS: 0.9% NaCl Peripheral Flush Adult/Peds IV ×2 (15:00→22:05)
[2017-12-29] MEDS: chlordiazePOXIDE 25 MG Capsule 50 MG PO ×2 (15:00→19:04)
[2017-12-29] MEDS: Insulin Lispro 100 UNIT/ML INSULN.PEN SQ ×2 (15:00→22:04)
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
[2017-12-29 17:10] LABS: Bedside Glucose 301 mg/dL (70-110)
[2017-12-29] MEDS: Insulin Lispro 100 UNIT/ML INSULN.PEN 20 UNIT SC (17:12)
[2017-12-29] MEDS: Glucerna Shake 120 ML LIQUID PO ×2 (18:00→22:06)
[2017-12-29 18:17] LABS: Anion Gap 13 (5-15); BUN 7 mg/dL (7-18); BUN/Creat Ratio 7.8 RATIO (10-20); Calcium,Total 8.4 mg/dL (8.5-10.1); Chloride 98 mmol/L (98-107); EST Glomerular Filtration Rate 96 mL/min (>60); Est Glom Filt Rate - Afr Amer 116 mL/min (>60); Estimated Creatinine Clearance 109.23 ml/min; Glucose 319 mg/dL (74-106); Potassium 3.2 mmol/L (3.5-5.1); Sodium Level 139 mmol/L (136-145)
[2017-12-29] MEDS: 0.9% Normal Saline 1,000 ML 150 ML IV (19:05)
[2017-12-29] MEDS: MELATONIN 3 MG TABLET PO (22:05)
[2017-12-29] MEDS: traZODone 50 MG Tablet PO (22:05)
[2017-12-29] MEDS: Heparin Injection (Vial) 5,000 UNIT/ML VIAL 5000 UNIT SC (22:05)
[2017-12-29] MEDS: Fluticasone 0.05% 1 SPRAY NASAL.SRY 2 SPRAY NASAL (22:05)
[2017-12-29] MEDS: Acetaminophen 325 MG Tablet 650 MG PO (22:06)
[2017-12-29 22:21] LABS: Bedside Glucose 206 mg/dL (70-110)
[2017-12-30] VITALS (12 sets, daily range): BP systolic 109–143; BP diastolic 76–98; PULSE 73–102; RESP 16–20; TEMP 36.6–37.2; O2SAT 92–100
[2017-12-30] MEDS: chlordiazePOXIDE 25 MG Capsule 50 MG PO ×4 (01:59→21:33)
[2017-12-30] MEDS: 0.9% NaCl Peripheral Flush Adult/Peds IV ×3 (02:00→23:07)
[2017-12-30] MEDS: LORazepam 2 MG/ML Syringe IV ×10 (02:00→23:06)
[2017-12-30] MEDS: 0.9% Normal Saline 1,000 ML 150 ML IV (02:14)
[2017-12-30 05:54] LABS: Absolute Lymphocyte Count 3.07 X10^3/ul (0.83-4.51); Absolute Neutrophil Count 4.7 X10^3/uL (2.0-7.7); Basophil# 0.05 X10^3/uL; Basophil% 0.6 % (0-1); Eosinophil# 0.45 X10^3/uL; Eosinophils% 5.1 % (0-5); Hematocrit 38.3 % (40-54); Hemoglobin 13.2 g/dl (13.0-16.5); Lymphocyte # 3.07 X10^3/ul (4.0); Lymphocyte % 34.6 % (19-41); Mean Corp Hgb Conc 34.5 g/gl (32-36); Mean Corpuscular Hgb 31.5 pg (27.0-32.0); Mean Corpuscular Volume 91.4 fL (80-94); Mean Platelet Vol. 9.5 fl (6.2-12.0); Monocyte# 0.61 X10^3/uL; Monocyte% 6.9 % (0-10); Neutrophil # 4.67 X10^3/uL (2.7-7.7); Neutrophil % 52.6 % (47-70); POSITIVE COUNT NO; POSITIVE DIFFERENTIAL NO; POSITIVE MORPHOLOGY NO; Platelet Count 508 K/mm3 (150-450); RBC Distribution Width CV 14.8 % (11.6-14.6); RBC Distribution Width SD 47.8 fl (35.1-43.9); Red Blood Count 4.19 M/mm3 (4.6-6.2); White Blood Count 8.9 K/mm3 (4.4-11.0)
[2017-12-30 06:16] LABS: Anion Gap 7 (5-15); BUN 9 mg/dL (7-18); Calcium,Total 8.1 mg/dL (8.5-10.1); Chloride 105 mmol/L (98-107); Creatinine, Serum 0.69 mg/dL (0.70-1.30); EST Glomerular Filtration Rate 131 mL/min (>60); Est Glom Filt Rate - Afr Amer 158 mL/min (>60); Estimated Creatinine Clearance 142.48 ml/min; Glucose 171 mg/dL (74-106); Magnesium 1.3 mg/dL (1.6-2.6); Phosphorus 2.5 mg/dL (2.5-4.9); Potassium 3.4 mmol/L (3.5-5.1); Sodium Level 141 mmol/L (136-145)
[2017-12-30 07:11] LABS: Bedside Glucose 165 mg/dL (70-110)
[2017-12-30] MEDS: Insulin Lispro 100 UNIT/ML INSULN.PEN SQ ×3 (08:11→21:35)
[2017-12-30] MEDS: Folic Acid 1 MG Tablet PO (08:12)
[2017-12-30] MEDS: Multivitamins,Therapeutic Tablet 1 TABLET PO (08:16)
[2017-12-30] MEDS: Thiamine Hydrochloride 100 MG Tablet PO (08:17)
[2017-12-30] MEDS: hydroCHLOROthiazide 25 MG Tablet PO (08:18)
[2017-12-30] MEDS: Heparin Injection (Vial) 5,000 UNIT/ML VIAL 5000 UNIT SC ×2 (08:18→21:34)
[2017-12-30] MEDS: amLODIPine 5 MG Tablet PO (08:20)
[2017-12-30] MEDS: FLUoxetine 20 MG Capsule 60 MG PO (08:20)
[2017-12-30] MEDS: Lisinopril 20 MG Tablet PO (08:20)
[2017-12-30] MEDS: Pantoprazole Sodium 20 MG Tablet PO (08:34)
--- NOTE | 2017-12-30 09:51 | PN_ITS ---
Subjective: Sleeping, continues to be diaphoretic but less agitated and restless Objective: General: Alert, Oriented x3, Cooperative, HEENT: Atraumatic, PERRLA, EOMI, Normocephalic Oral: Dry Mucosa Neck: Supple, No JVD Lungs: Clear to auscultation, Normal air movement, No rhonchi, No wheeze, No rales Cardiovascular: Regular rate, Regular Rhythm, Normal S1, Normal S2, No murmurs Abdomen: Soft, Non Tender, Non-Distended, No Hepato-splenomegaly Extremities: No edema, Capillary Refill Less than 3 Seconds Skin: No rashes, No breakdown Neurological: Neuro grossly intact, Sensory exam intact to light touch and pain Vitals/I&O's: Vital Signs Temp Pulse Resp BP Pulse Ox 98.0 F 79 17 136/86 H 92 12/30/17 08:10 12/30/17 08:10 12/30/17 08:10 12/30/17 08:10 12/30/17 08:10 Oxygen Delivery Method Room Air Weight: 202 lb 6.15 oz Body Mass Index (BMI) 28.2 Finger Stick Blood Glucose 234 Intake and Output for Last 24 Hours 12/28/17 12/29/17 12/30/17 23:59 23:59 23:59 Intake Total 1253 / 1253 2052 Balance 1253 / 1253 2052 Laboratory Results 12/29/17 11:20: WBC 12.0 H, RBC 4.87, Hgb 15.3, Hct 44.3, MCV 91.0, MCH 31.4, MCHC 34.5, RDW 14.9 H, RDW Differential 48.4 H, Plt Count 727 H, MPV 9.6, Immature Gran % (Auto) 0.200, Neut % (Auto) 69.4, Lymph % (Auto) 20.0, Mcnairy % (Auto) 9.0, Eos % (Auto) 0.6, Baso % (Auto) 0.8, Absolute Neuts (auto) 8.3 H, Absolute Lymphs (auto) 2.40, Total Counted Not Reportable 12/29/17 11:20: Sodium 133 L, Potassium 3.3 L, Chloride 92 L, Carbon Dioxide 22.0, Anion Gap 19 H, BUN 6 L, Creatinine 1.11, Estim Creat Clear Calc 88.57, Est GFR (MDRD) Af Amer 91, Est GFR (MDRD) Non-Af 76, BUN/Creatinine Ratio 5.4 L, Glucose 505 H*, Calcium 8.3 L, Total Bilirubin 0.50, Direct Bilirubin 0.18, AST 37, ALT 35, Alkaline Phosphatase 143 H, Troponin I 0.056 H, Total Protein 8.4 H, Albumin 3.6, Globulin 4.8 H, Lipase 404 H 12/29/17 11:20: Ethyl Alcohol 431.0 H* 12/29/17 11:20: Acetone Level NEGATIVE 12/29/17 12:39: Urine Opiates Screen Cancelled, Urine Methadone Screen Cancelled, Ur Barbiturates Screen Cancelled, Ur Phencyclidine Scrn Cancelled, Ur Amphetamines Screen Cancelled, U Methamphetamin-MDMA Cancelled, U Benzodiazepines Scrn Cancelled, Urine Cocaine Screen Cancelled, U Cannabinoids Screen Cancelled, Ur Drug Screen Comment Cancelled 12/29/17 12:39: Urine Color Yellow, Urine Clarity Clear, Urine pH 6.0, Ur Specific [place] 1.010, Urine Protein 30 H, Urine Glucose (UA) 1000 H, Urine K etones 50 H, Urine Occult Blood 50 H, Urine Nitrite Negative, Urine Bilirubin Negative, Urine Urobilinogen Normal, Ur Leukocyte Esterase Negative, Urine RBC 0 SEEN, Urine WBC 0 SEEN, Ur Squamous Epith Cells 0 SEEN, Urine Bacteria RARE, Urine Mucus 0 SEEN 12/29/17 14:00: Urine Opiates Screen NEGATIVE, Urine Methadone Screen NEGATIVE, Ur Barbiturates Screen NEGATIVE, Ur Phencyclidine Scrn NEGATIVE, Ur Amphetamines Screen NEGATIVE, U Methamphetamin-MDMA NEGATIVE, U Benzodiazepines Scrn POSITIVE H, Urine Cocaine Screen NEGATIVE, U Cannabinoids Screen NEGATIVE, Ur Drug Screen Comment 12/29/17 14:22: POC Glucose 360 H 12/29/17 16:52: POC Glucose 301 H 12/29/17 17:44: Sodium 139, Potassium 3.2 L, Chloride 98, Carbon Dioxide 28.0, Anion Gap 13, BUN 7, Creatinine 0.90, Estim Creat Clear Calc 109.23, Est GFR (MDRD) Af Amer 116, Est GFR (MDRD) Non-Af 96, BUN/Creatinine Ratio 7.8 L, Glucose 319 H, Calcium 8.4 L 12/29/17 17:44: Troponin I 0.068 H 12/29/17 21:00: Troponin I 0.069 H 12/29/17 22:03: POC Glucose 206 H 12/30/17 05:45: WBC 8.9, RBC 4.19 L, Hgb 13.2, Hct 38.3 L, MCV 91.4, MCH 31.5, MCHC 34.5, RDW 14.8 H, RDW Differential 47.8 H, Plt Count 508 H, MPV 9.5, Immature Gran % (Auto) 0.200, Neut % (Auto) 52.6, Lymph % (Auto) 34.6, Mcnairy % (Auto) 6.9, Eos % (Auto) 5.1 H, Baso % (Auto) 0.6, Absolute Neuts (auto) 4.7, Absolute Lymphs (auto) 3.07, Total Counted Not Reportable 12/30/17 05:45: Sodium 141, Potassium 3.4 L, Chloride 105, Carbon Dioxide 29.0, Anion Gap 7, BUN 9, Creatinine 0.69 L, Estim Creat Clear Calc 142.48, Est GFR (MDRD) Af Amer 158, Est GFR (MDRD) Non-Af 131, BUN/Creatinine Ratio 13.0, Glucose 171 H, Calcium 8.1 L, Phosphorus 2.5, Magnesium 1.3 L 12/30/17 06:57: POC Glucose 165 H Current Medications Acetaminophen (Tylenol) 650 mg PO Q6H PRN PRN PRN Reason: PAIN Last Admin: 12/29/17 22:06 Dose: 650 mg Amlodipine Besylate (Norvasc) 5 mg PO DAILY [facility] Last Admin: 12/30/17 08:20 Dose: 5 mg Chlordiazepoxide (Librium) 50 mg PO Q8H [facility]; Taper Stop: 01/01/18 14:59 Last Admin: 12/30/17 06:54 Dose: 50 mg Dextrose (D50w Syringe) 0 gm IV X1 PRN; Protocol PRN Reason: Hypoglycemia Dicyclomine HCl (Bentyl) 20 mg PO Q6H PRN PRN PRN Reason: abdominal discomfort Fluoxetine HCl (Prozac) 60 mg PO DAILY [facility] Last Admin: 12/30/17 08:20 Dose: 60 mg Fluticasone Propionate (Flonase Nasal [place]) 2 spray NASAL QHS [facility] Last Admin: 12/29/17 22:05 Dose: 2 spray Folic Acid (Folic Acid) 1 mg PO DAILYCM [facility] Last Admin: 12/30/17 08:12 Dose: 1 mg Glucagon () 1 mg IM .X1 PRN PRN Reason: Hypoglycemia Heparin Sodium (Porcine) (Heparin Na) 5,000 unit SC Q12 [facility] Last Admin: 12/30/17 08:18 Dose: 5,000 unit Hydrochlorothiazide (Hctz) 25 mg PO DAILY [facility] Last Admin: 12/30/17 08:18 Dose: 25 mg Hydroxyzine Pamoate (Vistaril Pamoate Capsule) 50 mg PO Q6H PRN PRN PRN Reason: Mild Anxiety (score 1/3) Sodium Chloride () 1,000 mls @ 150 mls/hr IV .Q6H40M [facility] Last Admin: 12/30/17 02:14 Dose: 150 mls/hr Potassium Chloride (Kcl 10meq/100ml) 10 meq in 100 mls @ 100 mls/hr IV BOLUS Q1H [facility] Stop: 12/30/17 15:59 Magnesium Sulfate (4 Gm/100 Ml) 4 gm in 100 mls @ 25 mls/hr IV X1 ONE Stop: 12/30/17 13:59 Influenza Virus Vaccine Quadrival (Fluarix/Fluzone) 0.5 ml IM .ONCE ONE Stop: 12/30/17 10:01 Last Admin: 12/30/17 08:17 Dose: 0.5 ml Insulin Glargine (Lantus (Bkc)) 50 units SC QHS [facility] Last Admin: 12/29/17 22:16 Dose: 50 u Insulin Human Lispro (Humalog Kwikpen (Bkc)) 0 unit SQ ACHS [facility]; Protocol Last Admin: 12/30/17 08:11 Dose: 2 u Insulin Human Lispro (Humalog Kwikpen (Bkc)) 20 unit SC TIDCM [facility] Last Admin: 12/30/17 08:13 Dose: Not Given Lisinopril (Zestril) 20 mg PO DAILY [facility] Last Admin: 12/30/17 08:20 Dose: 20 mg Lorazepam (Ativan) 1 - 2 mg IV Q2H PRN PRN PRN Reason: Severe Anxiety Last Admin: 12/30/17 02:00 Dose: 2 mg Magnesium Hydroxide (Milk Of Magnesia) 30 ml PO DAILY PRN PRN PRN Reason: Constipation Melatonin (Melatonin) 3 mg PO QHS [facility] Last Admin: 12/29/17 22:05 Dose: 3 mg Meloxicam (Mobic) 15 mg PO DAILY [facility] Methocarbamol (Methocarbamol) 750 mg PO Q6H PRN PRN PRN Reason: Muscle Aches [facility]it[facility] ([facility]) [facility] Last Admin: 12/30/17 08:16 Dose: 1 tablet Nicotine (Nicoderm Cq (Pbkc)) 14 mg TRANSDERM. DAILY [facility] Last Admin: 12/30/17 08:19 Dose: 14 mg Nutritional Formula (Lactose Free) (Glucerna Shake) 120 ml PO 4X/DAY [facility] Last Admin: 12/30/17 08:18 Dose: Not Given Pantoprazole Sodium (Protonix) 20 mg PO DAILY [facility] Last Admin: 12/30/17 08:34 Dose: 20 mg Quetiapine Fumarate (Seroquel) 50 mg PO QHS PRN PRN Reason: INSOMNIA Sodium Chloride () 5 - 30 ml IV UD PRN PRN Reason: SALINE FLUSH Last Admin: 12/30/17 02:00 Dose: 10 ml Thiamine HCl (Vitamin B1) [facility] Last Admin: 12/30/17 08:17 Dose: 100 mg Trazodone HCl (Desyrel) 50 mg PO QHS [facility] Last Admin: 12/29/17 22:05 Dose: 50 mg Medical Necessity - Tobacco Use Smoking Status: Current every day smoker Assessment/Plan All Active Problems Alcohol intoxication (Acute) Pancreatitis (Acute) Alcohol withdrawal (Acute) 1. Alcohol intoxications - Will start on the EtOH withdrawal protocol - Given his past history, very low threshold for transfer to the ICU for a precedex drip, he has also had good response in the past to phenobarb - Librium taper and will be aggressive with the ativan - IVF@100 2. Uncontrolled DM2 with severe hyperglycemia/Hypokalemia - He received insulin in the ER - Will resume his home insulin with SSI - He was given 100 meq of potassium, Mag is 1.3, will replace and give more PO KCl - IVF@100, acetone is negative, gap has closed 3. HTN/HLD - Will restart his home medications - continue to monitor 4. Depression/Anxiety - Will resume his home medications - Hopefully with the addition of the ativan for the EtOH, his mood should stabilize DVT: Heparin Diet: DM Code Visit Inpatient E&M: 32669 Subs Hosp L2
[2017-12-30] MEDS: 0.9% Normal Saline 1,000 ML 100 ML IV ×2 (09:57→20:20)
[2017-12-30] MEDS: Meloxicam 15 MG Tablet PO (11:04)
[2017-12-30 11:30] LABS: Bedside Glucose 167 mg/dL (70-110)
[2017-12-30] MEDS: Insulin Lispro 100 UNIT/ML INSULN.PEN 20 UNIT SC ×2 (13:44→17:00)
[2017-12-30 16:31] LABS: Bedside Glucose 116 mg/dL (70-110)
[2017-12-30] MEDS: Methocarbamol 750 MG Tablet PO ×2 (16:56→23:06)
[2017-12-30] MEDS: hydrOXYzine PAM 25 MG Capsule 50 MG PO ×2 (16:59→23:06)
--- NOTE | 2017-12-30 17:12 | NURSING ---
pt crying and mod anxiety noted. tv very loud and told pt to turn it down or off d/t nerves. dr. bateman and ryan roach increased prn. vistaril given.
[2017-12-30] MEDS: Glucerna Shake 120 ML LIQUID PO ×2 (17:39→21:34)
[2017-12-30] MEDS: Acetaminophen 325 MG Tablet 650 MG PO (20:20)
[2017-12-30] MEDS: MELATONIN 3 MG TABLET PO (21:32)
[2017-12-30] MEDS: traZODone 50 MG Tablet PO (21:32)
[2017-12-30] MEDS: Fluticasone 0.05% 1 SPRAY NASAL.SRY 2 SPRAY NASAL (21:37)
[2017-12-30 21:51] LABS: Bedside Glucose 237 mg/dL (70-110)
[2017-12-30] MEDS: QUEtiapine 25 MG Tablet 50 MG PO (23:06)
[2017-12-31] VITALS (11 sets, daily range): BP systolic 116–140; BP diastolic 78–96; PULSE 72–94; RESP 16–20; TEMP 35.9–36.6; O2SAT 95–96
[2017-12-31] MEDS: 0.9% NaCl Peripheral Flush Adult/Peds IV ×5 (02:02→23:07)
[2017-12-31] MEDS: LORazepam 2 MG/ML Syringe IV ×9 (02:03→23:09)
[2017-12-31] MEDS: 0.9% Normal Saline 1,000 ML 100 ML IV ×2 (06:04→15:49)
[2017-12-31] MEDS: chlordiazePOXIDE 25 MG Capsule 50 MG PO ×3 (06:05→21:52)
[2017-12-31 07:11] LABS: Bedside Glucose 105 mg/dL (70-110)
[2017-12-31 07:40] LABS: Anion Gap 8 (5-15); BUN 6 mg/dL (7-18); BUN/Creat Ratio 9.7 RATIO (10-20); Calcium,Total 8.2 mg/dL (8.5-10.1); Chloride 106 mmol/L (98-107); Creatinine, Serum 0.62 mg/dL (0.70-1.30); EST Glomerular Filtration Rate 149 mL/min (>60); Est Glom Filt Rate - Afr Amer 180 mL/min (>60); Estimated Creatinine Clearance 158.56 ml/min; Glucose 87 mg/dL (74-106); Magnesium 1.8 mg/dL (1.6-2.6); Potassium 2.9 mmol/L (3.5-5.1); Sodium Level 143 mmol/L (136-145)
[2017-12-31] MEDS: Folic Acid 1 MG Tablet PO (08:45)
[2017-12-31] MEDS: Multivitamins,Therapeutic Tablet 1 TABLET PO (08:45)
[2017-12-31] MEDS: Thiamine Hydrochloride 100 MG Tablet PO (08:45)
[2017-12-31] MEDS: Glucerna Shake 120 ML LIQUID PO ×3 (10:12→16:51)
[2017-12-31] MEDS: Meloxicam 15 MG Tablet PO (10:14)
[2017-12-31] MEDS: Heparin Injection (Vial) 5,000 UNIT/ML VIAL 5000 UNIT SC ×2 (10:14→21:43)
[2017-12-31] MEDS: Pantoprazole Sodium 20 MG Tablet PO (10:14)
[2017-12-31] MEDS: hydroCHLOROthiazide 25 MG Tablet PO (10:14)
[2017-12-31] MEDS: amLODIPine 5 MG Tablet PO (10:18)
[2017-12-31] MEDS: FLUoxetine 20 MG Capsule 60 MG PO (10:18)
[2017-12-31] MEDS: Insulin Lispro 100 UNIT/ML INSULN.PEN 20 UNIT SC ×2 (10:19→16:50)
[2017-12-31] MEDS: Lisinopril 20 MG Tablet PO (10:19)
--- NOTE | 2017-12-31 10:27 | PCM.PN.HOSP ---
Subjective: still restless but not as agitated or labile emotionally. Objective: General: Alert, Oriented x3, Cooperative, HEENT: Atraumatic, PERRLA, EOMI, Normocephalic Oral: Dry Mucosa Neck: Supple, No JVD Lungs: Clear to auscultation, Normal air movement, No rhonchi, No wheeze, No rales Cardiovascular: Regular rate, Regular Rhythm, Normal S1, Normal S2, No murmurs Abdomen: Soft, Non Tender, Non-Distended, No Hepato-splenomegaly Extremities: No edema, Capillary Refill Less than 3 Seconds Skin: No rashes, No breakdown Vitals/I&O's: Vital Signs Temp Pulse Resp BP Pulse Ox 97.8 F 81 20 H 127/86 H 95 12/31/17 06:11 12/31/17 07:00 12/31/17 06:11 12/31/17 06:11 12/31/17 06:11 Oxygen Delivery Method Room Air Weight: 202 lb 6.15 oz Body Mass Index (BMI) 28.2 Finger Stick Blood Glucose 234 Intake and Output for Last 24 Hours 12/29/17 12/30/17 12/31/17 23:59 23:59 23:59 Intake Total 1253 / 1253 4279 / 4279 1789 / 1789 Output Total 1075 / 1075 1750 / 1750 Balance 1253 / 1253 3204 / 3204 39 / 39 Laboratory Results 12/30/17 11:22: POC Glucose 167 H 12/30/17 16:26: POC Glucose 116 H 12/30/17 21:32: POC Glucose 237 H 12/31/17 06:40: Sodium 143, Potassium 2.9 L, Chloride 106, Carbon Dioxide 29.0, Anion Gap 8, BUN 6 L, Creatinine 0.62 L, Estim Creat Clear Calc 158.56, Est GFR (MDRD) Af Amer 180, Est GFR (MDRD) Non-Af 149, BUN/Creatinine Ratio 9.7 L, Glucose 87, Calcium 8.2 L, Magnesium 1.8 12/31/17 07:07: POC Glucose 105 Current Medications Acetaminophen (Tylenol) 650 mg PO Q6H PRN PRN PRN Reason: PAIN Last Admin: 12/30/17 20:20 Dose: 650 mg Amlodipine Besylate (Norvasc) 5 mg PO DAILY [facility] Last Admin: 12/30/17 08:20 Dose: 5 mg Chlordiazepoxide (Librium) 50 mg PO Q8 [facility] Last Admin: 12/31/17 06:05 Dose: 50 mg Dextrose (D50w Syringe) 0 gm IV X1 PRN; Protocol PRN Reason: Hypoglycemia Dicyclomine HCl (Bentyl) 20 mg PO Q6H PRN PRN PRN Reason: abdominal discomfort Fluoxetine HCl (Prozac) 60 mg PO DAILY [facility] Last Admin: 12/30/17 08:20 Dose: 60 mg Fluticasone Propionate (Flonase Nasal [place]) 2 spray NASAL QHS [facility] Last Admin: 12/30/17 21:37 Dose: 2 spray [facility] Last Admin: 12/31/17 08:45 Dose: 1 mg Glucagon () 1 mg IM .X1 PRN PRN Reason: Hypoglycemia Heparin Sodium (Porcine) (Heparin Na) 5,000 unit SC Q12 [facility] Last Admin: 12/30/17 21:34 Dose: 5,000 unit Hydrochlorothiazide (Hctz) 25 mg PO DAILY [facility] Last Admin: 12/30/17 08:18 Dose: 25 mg Hydroxyzine Pamoate (Vistaril Pamoate Capsule) 50 mg PO Q6H PRN PRN PRN Reason: Mild Anxiety (score 1/3) Last Admin: 12/30/17 23:06 Dose: 50 mg Sodium Chloride () 1,000 mls @ 100 mls/hr IV .Q10H [facility] Last Admin: 12/31/17 06:04 Dose: 100 mls/hr Magnesium Sulfate 2 gm/ Sodium (Chloride) 104 mls @ 52 mls/hr IV X1 ONE Stop: 12/31/17 10:48 Insulin Glargine (Lantus (Bkc)) 50 units SC QHS [facility] Last Admin: 12/30/17 21:34 Dose: 50 u Insulin Human Lispro (Humalog Kwikpen (Bkc)) 0 unit SQ ACHS [facility]; Protocol Last Admin: 12/31/17 08:06 Dose: Not Given Insulin Human Lispro (Humalog Kwikpen (Bkc)) 20 unit SC TIDCM [facility] Last Admin: 12/30/17 17:00 Dose: 207 u Lisinopril (Zestril) 20 mg PO DAILY [facility] Last Admin: 12/30/17 08:20 Dose: 20 mg Lorazepam (Ativan) 1 - 2 mg IV Q1H PRN PRN Reason: Severe Anxiety Last Admin: 12/31/17 08:40 Dose: 2 mg Magnesium Hydroxide (Milk Of Magnesia) 30 ml PO DAILY PRN PRN PRN Reason: Constipation Melatonin (Melatonin) 3 mg PO QHS [facility] Last Admin: 12/30/17 21:32 Dose: 3 mg Meloxicam (Mobic) 15 mg PO DAILY [facility] Last Admin: 12/30/17 11:04 Dose: 15 mg Methocarbamol (Methocarbamol) 750 mg PO Q6H PRN PRN PRN Reason: Muscle Aches Last Admin: 12/30/17 23:06 Dose: 750 mg [facility]ivitamins ([facility]amin) [facility] Last Admin: 12/31/17 08:45 Dose: 1 tablet Nicotine (Nicoderm Cq (Pbkc)) 14 mg TRANSDERM. DAILY [facility] Last Admin: 12/30/17 08:19 Dose: 14 mg Nutritional Formula (Lactose Free) (Glucerna Shake) 120 ml PO 4X/DAY [facility] Last Admin: 12/30/17 21:34 Dose: 120 ml Pantoprazole Sodium (Protonix) 20 mg PO DAILY [facility] Last Admin: 12/30/17 08:34 Dose: 20 mg Quetiapine Fumarate (Seroquel) 50 mg PO QHS PRN PRN Reason: INSOMNIA Last Admin: 12/30/17 23:06 Dose: 50 mg Sodium Chloride () 5 - 30 ml IV UD PRN PRN Reason: SALINE FLUSH Last Admin: 12/31/17 08:40 Dose: 10 ml Thiamine HCl (Vitamin B1) [facility] Last Admin: 12/31/17 08:45 Dose: 100 mg Trazodone HCl (Desyrel) 50 mg PO QHS [facility] Last Admin: 12/30/17 21:32 Dose: 50 mg Medical Necessity - Tobacco Use Smoking Status: Current every day smoker Assessment/Plan All Active Problems Alcohol intoxication (Acute) Pancreatitis (Acute) Alcohol withdrawal (Acute) 1. Alcohol intoxications - Will start on the EtOH withdrawal protocol - Given his past history, very low threshold for transfer to the ICU for a precedex drip, he has also had good response in the past to phenobarb - Librium 50 mg TID and will be aggressive with the ativan, currently 2 mg IV q1 hour - He is terrified of going to the ICU and being intubated again - IVF@100 2. Uncontrolled DM2 with severe hyperglycemia-resolved/Hypokalemia - He received insulin in the ER - Will resume his home insulin with SSI - Potassium is 2.9, Mag is 1.8, will replace both and have a f/u BMP this afternoon - IVF@100, acetone is negative, gap has closed 3. HTN/HLD - Will restart his home medications - continue to monitor 4. Depression/Anxiety - Will resume his home medications - Hopefully with the addition of the ativan for the EtOH, his mood should stabilize DVT: Heparin Diet: DM Code Visit Inpatient E&M: 17614 Subs Hosp L2
[2017-12-31] MEDS: Insulin Lispro 100 UNIT/ML INSULN.PEN SQ ×2 (10:31→16:49)
--- NOTE | 2017-12-31 10:31 | PN_ITS ---
Subjective: still restless but not as agitated or labile emotionally. Objective: General: Alert, Oriented x3, Cooperative, HEENT: Atraumatic, PERRLA, EOMI, Normocephalic Oral: Dry Mucosa Neck: Supple, No JVD Lungs: Clear to auscultation, Normal air movement, No rhonchi, No wheeze, No rales Cardiovascular: Regular rate, Regular Rhythm, Normal S1, Normal S2, No murmurs Abdomen: Soft, Non Tender, Non-Distended, No Hepato-splenomegaly Extremities: No edema, Capillary Refill Less than 3 Seconds Skin: No rashes, No breakdown Vitals/I&O's: Vital Signs Temp Pulse Resp BP Pulse Ox 97.8 F 81 20 H 127/86 H 95 12/31/17 06:11 12/31/17 07:00 12/31/17 06:11 12/31/17 06:11 12/31/17 06:11 Oxygen Delivery Method Room Air Weight: 202 lb 6.15 oz Body Mass Index (BMI) 28.2 Finger Stick Blood Glucose 234 Intake and Output for Last 24 Hours 12/29/17 12/30/17 12/31/17 23:59 23:59 23:59 Intake Total 1253 / 1253 4279 / 4279 1789 / 1789 Output Total 1075 / 1075 1750 / 1750 Balance 1253 / 1253 3204 / 3204 39 / 39 Laboratory Results 12/30/17 11:22: POC Glucose 167 H 12/30/17 16:26: POC Glucose 116 H 12/30/17 21:32: POC Glucose 237 H 12/31/17 06:40: Sodium 143, Potassium 2.9 L, Chloride 106, Carbon Dioxide 29.0, Anion Gap 8, BUN 6 L, Creatinine 0.62 L, Estim Creat Clear Calc 158.56, Est GFR (MDRD) Af Amer 180, Est GFR (MDRD) Non-Af 149, BUN/Creatinine Ratio 9.7 L, Glucose 87, Calcium 8.2 L, Magnesium 1.8 12/31/17 07:07: POC Glucose 105 Current Medications Acetaminophen (Tylenol) 650 mg PO Q6H PRN PRN PRN Reason: PAIN Last Admin: 12/30/17 20:20 Dose: 650 mg Amlodipine Besylate (Norvasc) 5 mg PO DAILY [facility] Last Admin: 12/30/17 08:20 Dose: 5 mg Chlordiazepoxide (Librium) 50 mg PO Q8 [facility] Last Admin: 12/31/17 06:05 Dose: 50 mg Dextrose (D50w Syringe) 0 gm IV X1 PRN; Protocol PRN Reason: Hypoglycemia Dicyclomine HCl (Bentyl) 20 mg PO Q6H PRN PRN PRN Reason: abdominal discomfort Fluoxetine HCl (Prozac) 60 mg PO DAILY [facility] Last Admin: 12/30/17 08:20 Dose: 60 mg Fluticasone Propionate (Flonase Nasal [place]) 2 spray NASAL QHS [facility] Last Admin: 12/30/17 21:37 Dose: 2 spray [facility] ([facility]) [facility] Last Admin: 12/31/17 08:45 Dose: 1 mg Glucagon () 1 mg IM .X1 PRN PRN Reason: Hypoglycemia Heparin Sodium (Porcine) (Heparin Na) 5,000 unit SC Q12 [facility] Last Admin: 12/30/17 21:34 Dose: 5,000 unit Hydrochlorothiazide (Hctz) 25 mg PO DAILY [facility] Last Admin: 12/30/17 08:18 Dose: 25 mg Hydroxyzine Pamoate (Vistaril Pamoate Capsule) 50 mg PO Q6H PRN PRN PRN Reason: Mild Anxiety (score 1/3) Last Admin: 12/30/17 23:06 Dose: 50 mg Sodium Chloride () 1,000 mls @ 100 mls/hr IV .Q10H [facility] Last Admin: 12/31/17 06:04 Dose: 100 mls/hr Magnesium Sulfate 2 gm/ Sodium (Chloride) 104 mls @ 52 mls/hr IV X1 ONE Stop: 12/31/17 10:48 Insulin Glargine (Lantus (Bkc)) 50 units SC QHS [facility] Last Admin: 12/30/17 21:34 Dose: 50 u Insulin Human Lispro (Humalog Kwikpen (Bkc)) 0 unit SQ ACHS [facility]; Protocol Last Admin: 12/31/17 08:06 Dose: Not Given Insulin Human Lispro (Humalog Kwikpen (Bkc)) 20 unit SC TIDCM [facility] Last Admin: 12/30/17 17:00 Dose: 207 u Lisinopril (Zestril) 20 mg PO DAILY [facility] Last Admin: 12/30/17 08:20 Dose: 20 mg Lorazepam (Ativan) 1 - 2 mg IV Q1H PRN PRN Reason: Severe Anxiety Last Admin: 12/31/17 08:40 Dose: 2 mg Magnesium Hydroxide (Milk Of Magnesia) 30 ml PO DAILY PRN PRN PRN Reason: Constipation Melatonin (Melatonin) 3 mg PO QHS [facility] Last Admin: 12/30/17 21:32 Dose: 3 mg Meloxicam (Mobic) 15 mg PO DAILY [facility] Last Admin: 12/30/17 11:04 Dose: 15 mg Methocarbamol (Methocarbamol) 750 mg PO Q6H PRN PRN PRN Reason: Muscle Aches Last Admin: 12/30/17 23:06 Dose: 750 mg Multivitamins (Multivitamin) [facility] Last Admin: 12/31/17 08:45 Dose: 1 tablet Nicotine (Nicoderm Cq (Pbkc)) 14 mg TRANSDERM. DAILY [facility] Last Admin: 12/30/17 08:19 Dose: 14 mg Nutritional Formula (Lactose Free) (Glucerna Shake) 120 ml PO 4X/DAY [facility] Last Admin: 12/30/17 21:34 Dose: 120 ml Pantoprazole Sodium (Protonix) 20 mg PO DAILY [facility] Last Admin: 12/30/17 08:34 Dose: 20 mg Quetiapine Fumarate (Seroquel) 50 mg PO QHS PRN PRN Reason: INSOMNIA Last Admin: 12/30/17 23:06 Dose: 50 mg Sodium Chloride () 5 - 30 ml IV UD PRN PRN Reason: SALINE FLUSH Last Admin: 12/31/17 08:40 Dose: 10 ml Thiamine HCl (Vitamin B1) [facility] Last Admin: 12/31/17 08:45 Dose: 100 mg Trazodone HCl (Desyrel) 50 mg PO QHS [facility] Last Admin: 12/30/17 21:32 Dose: 50 mg Medical Necessity - Tobacco Use Smoking Status: Current every day smoker Assessment/Plan All Active Problems Alcohol intoxication (Acute) Pancreatitis (Acute) Alcohol withdrawal (Acute) 1. Alcohol intoxications - Will start on the EtOH withdrawal protocol - Given his past history, very low threshold for transfer to the ICU for a precedex drip, he has also had good response in the past to phenobarb - Librium 50 mg TID and will be aggressive with the ativan, currently 2 mg IV q1 hour - He is terrified of going to the ICU and being intubated again - IVF@100 2. Uncontrolled DM2 with severe hyperglycemia-resolved/Hypokalemia - He received insulin in the ER - Will resume his home insulin with SSI - Potassium is 2.9, Mag is 1.8, will replace both and have a f/u BMP this afternoon - IVF@100, acetone is negative, gap has closed 3. HTN/HLD - Will restart his home medications - continue to monitor 4. Depression/Anxiety - Will resume his home medications - Hopefully with the addition of the ativan for the EtOH, his mood should stabilize DVT: Heparin Diet: DM Code Visit Inpatient E&M: 42230 Subs Hosp L2
[2017-12-31 10:46] LABS: Bedside Glucose 231 mg/dL (70-110)
[2017-12-31 12:56] LABS: Bedside Glucose 138 mg/dL (70-110)
[2017-12-31 15:18] LABS: Anion Gap 7 (5-15); BUN 6 mg/dL (7-18); BUN/Creat Ratio 9.1 RATIO (10-20); Calcium,Total 8.4 mg/dL (8.5-10.1); Chloride 106 mmol/L (98-107); Creatinine, Serum 0.66 mg/dL (0.70-1.30); EST Glomerular Filtration Rate 137 mL/min (>60); Est Glom Filt Rate - Afr Amer 166 mL/min (>60); Estimated Creatinine Clearance 148.95 ml/min; Glucose 100 mg/dL (74-106); Potassium 3.4 mmol/L (3.5-5.1); Sodium Level 141 mmol/L (136-145)
[2017-12-31 16:55] LABS: Bedside Glucose 235 mg/dL (70-110)
[2017-12-31] MEDS: MELATONIN 3 MG TABLET PO (21:43)
[2017-12-31] MEDS: QUEtiapine 25 MG Tablet 50 MG PO (21:43)
[2017-12-31] MEDS: traZODone 50 MG Tablet PO (21:43)
[2017-12-31 23:00] LABS: Bedside Glucose 132 mg/dL (70-110)
[2018-01-01] VITALS (12 sets, daily range): BP systolic 130–146; BP diastolic 89–100; PULSE 71–97; RESP 18; TEMP 36.6–37.2; O2SAT 92–96
[2018-01-01] MEDS: 0.9% NaCl Peripheral Flush Adult/Peds IV ×11 (00:41→23:50)
[2018-01-01] MEDS: LORazepam 2 MG/ML Syringe IV ×17 (00:42→22:39)
[2018-01-01] MEDS: 0.9% Normal Saline 1,000 ML 100 ML IV ×3 (03:12→23:50)
[2018-01-01] MEDS: chlordiazePOXIDE 25 MG Capsule 50 MG PO ×3 (05:55→20:40)
[2018-01-01 07:00] LABS: Bedside Glucose 78 mg/dL (70-110)
[2018-01-01 07:01] LABS: BUN 6 mg/dL (7-18); Creatinine, Serum 0.66 mg/dL (0.70-1.30); Glucose 70 mg/dL (74-106)
[2018-01-01 07:02] LABS: Anion Gap 9 (5-15); BUN/Creat Ratio 9.1 RATIO (10-20); Calcium,Total 8.5 mg/dL (8.5-10.1); Chloride 103 mmol/L (98-107); EST Glomerular Filtration Rate 138 mL/min (>60); Est Glom Filt Rate - Afr Amer 167 mL/min (>60); Estimated Creatinine Clearance 148.95 ml/min; Magnesium 1.6 mg/dL (1.6-2.6); Potassium 2.9 mmol/L (3.5-5.1); Sodium Level 140 mmol/L (136-145)
[2018-01-01] MEDS: Multivitamins,Therapeutic Tablet 1 TABLET PO (08:07)
[2018-01-01] MEDS: Thiamine Hydrochloride 100 MG Tablet PO (08:07)
[2018-01-01] MEDS: Folic Acid 1 MG Tablet PO (08:07)
--- NOTE | 2018-01-01 08:37 | PCM.PN.HOSP ---
Subjective: A little restless, and admits to hallucinations both auditory and visual. No seizure activity per the nurse Objective: General: Alert, Oriented x3, Cooperative, HEENT: Atraumatic, PERRLA, EOMI, Normocephalic Oral: Dry Mucosa Neck: Supple, No JVD Lungs: Clear to auscultation, Normal air movement, No rhonchi, No wheeze, No rales Cardiovascular: Regular rate, Regular Rhythm, Normal S1, Normal S2, No murmurs Abdomen: Soft, Non Tender, Non-Distended, No Hepato-splenomegaly Extremities: No edema, Capillary Refill Less than 3 Seconds Skin: No rashes, No breakdown Neurological: Neuro grossly intact, Sensory exam intact to light touch and pain Vitals/I&O's: Vital Signs Temp Pulse Resp BP Pulse Ox 98.0 F 74 18 142/100 H 96 01/01/18 04:32 01/01/18 04:32 01/01/18 04:32 01/01/18 04:32 01/01/18 04:32 Oxygen Delivery Method Room Air Weight: 202 lb 6.15 oz Body Mass Index (BMI) 28.2 Finger Stick Blood Glucose 234 Intake and Output for Last 24 Hours 12/30/17 12/31/17 01/01/18 23:59 23:59 23:59 Intake Total 4279 / 4279 5226 / 5226 2999 / 2999 Output Total 1075 / 1075 2250 / 2250 1650 / 1650 Balance 3204 / 3204 2976 / 2976 1349 / 1349 Laboratory Results 12/31/17 10:28: POC Glucose 231 H 12/31/17 12:49: POC Glucose 138 H 12/31/17 14:35: Sodium 141, Potassium 3.4 L, Chloride 106, Carbon Dioxide 28.0, Anion Gap 7, BUN 6 L, Creatinine 0.66 L, Estim Creat Clear Calc 148.95, Est GFR (MDRD) Af Amer 166, Est GFR (MDRD) Non-Af 137, BUN/Creatinine Ratio 9.1 L, Glucose 100, Calcium 8.4 L 12/31/17 16:47: POC Glucose 235 H 12/31/17 21:37: POC Glucose 132 H 01/01/18 06:29: Sodium 140, Potassium 2.9 L, Chloride 103, Carbon Dioxide 28.0, Anion Gap 9, BUN 6 L, Creatinine 0.66 L, Estim Creat Clear Calc 148.95, Est GFR (MDRD) Af Amer 167, Est GFR (MDRD) Non-Af 138, BUN/Creatinine Ratio 9.1 L, Glucose 70 L, Calcium 8.5, Magnesium 1.6 01/01/18 06:54: POC Glucose 78 Current Medications Acetaminophen (Tylenol) 650 mg PO Q6H PRN PRN PRN Reason: PAIN Last Admin: 12/30/17 20:20 Dose: 650 mg Amlodipine Besylate (Norvasc) 5 mg PO DAILY [facility] Last Admin: 12/31/17 10:18 Dose: 5 mg Chlordiazepoxide (Librium) 50 mg PO Q8 [facility] Last Admin: 01/01/18 05:55 Dose: 50 mg Dextrose (D50w Syringe) 0 gm IV X1 PRN; Protocol PRN Reason: Hypoglycemia Dicyclomine HCl (Bentyl) 20 mg PO Q6H PRN PRN PRN Reason: abdominal discomfort Fluoxetine HCl (Prozac) 60 mg PO DAILY [facility] Last Admin: 12/31/17 10:18 Dose: 60 mg Fluticasone Propionate (Flonase Nasal [place]) 2 spray NASAL QHS [facility] Last Admin: 12/31/17 21:38 Dose: Not Given [facility] Last Admin: 01/01/18 08:07 Dose: 1 mg Glucagon () 1 mg IM .X1 PRN PRN Reason: Hypoglycemia Heparin Sodium (Porcine) (Heparin Na) 5,000 unit SC Q12 [facility] Last Admin: 12/31/17 21:43 Dose: 5,000 unit Hydrochlorothiazide (Hctz) 25 mg PO DAILY [facility] Last Admin: 12/31/17 10:14 Dose: 25 mg Hydroxyzine Pamoate (Vistaril Pamoate Capsule) 50 mg PO Q6H PRN PRN PRN Reason: Mild Anxiety (score 1/3) Last Admin: 12/30/17 23:06 Dose: 50 mg Sodium Chloride () 1,000 mls @ 100 mls/hr IV .Q10H [facility] Last Admin: 01/01/18 03:12 Dose: 100 mls/hr Insulin Glargine (Lantus (Bkc)) 50 units SC QHS [facility] Last Admin: 12/31/17 21:43 Dose: 50 u Insulin Human Lispro (Humalog Kwikpen (Bkc)) 0 unit SQ ACHS [facility]; Protocol Last Admin: 01/01/18 07:50 Dose: Not Given Insulin Human Lispro (Humalog Kwikpen (Bkc)) 20 unit SC TIDCM [facility] Last Admin: 12/31/17 16:50 Dose: 20 u Lisinopril (Zestril) 20 mg PO DAILY [facility] Last Admin: 12/31/17 10:19 Dose: 20 mg Lorazepam (Ativan) 2 - 4 mg IV Q1H PRN PRN Reason: Severe Anxiety Magnesium Hydroxide (Milk Of Magnesia) 30 ml PO DAILY PRN PRN PRN Reason: Constipation Melatonin (Melatonin) 3 mg PO QHS [facility] Last Admin: 12/31/17 21:43 Dose: 3 mg Meloxicam (Mobic) 15 mg PO DAILY [facility] Last Admin: 12/31/17 10:14 Dose: 15 mg Methocarbamol (Methocarbamol) 750 mg PO Q6H PRN PRN PRN Reason: Muscle Aches Last Admin: 12/30/17 23:06 Dose: 750 mg Multivitamins ([facility]ivitamin) [facility] Last Admin: 01/01/18 08:07 Dose: 1 tablet Nicotine (Nicoderm Cq (Pbkc)) 14 mg TRANSDERM. DAILY [facility] Last Admin: 12/31/17 10:18 Dose: 14 mg Nutritional Formula (Lactose Free) (Glucerna Shake) 120 ml PO 4X/DAY [facility] Last Admin: 12/31/17 21:38 Dose: Not Given Pantoprazole Sodium (Protonix) 20 mg PO DAILY [facility] Last Admin: 12/31/17 10:14 Dose: 20 mg Potassium Chloride (K-Dur) 60 meq PO X1 ONE Stop: 01/01/18 08:30 Quetiapine Fumarate (Seroquel) 50 mg PO QHS PRN PRN Reason: INSOMNIA Last Admin: 12/31/17 21:43 Dose: 50 mg Sodium Chloride () 5 - 30 ml IV UD PRN PRN Reason: SALINE FLUSH Last Admin: 01/01/18 07:43 Dose: 10 ml Thiamine HCl (Vitamin B1) [facility] Last Admin: 01/01/18 08:07 Dose: 100 mg Trazodone HCl (Desyrel) 50 mg PO QHS [facility] Last Admin: 12/31/17 21:43 Dose: 50 mg Medical Necessity - Tobacco Use Smoking Status: Current every day smoker Assessment/Plan All Active Problems Alcohol intoxication (Acute) Pancreatitis (Acute) Alcohol withdrawal (Acute) 1. Alcohol intoxications - Will start on the EtOH withdrawal protocol - Given his past history, very low threshold for transfer to the ICU for a precedex drip, he has also had good response in the past to phenobarb - Librium 50 mg TID and will be aggressive with the ativan, currently 2 mg IV q1 hour will increase to 2-4 mg q1 - He is terrified of going to the ICU and being intubated again - IVF@100 2. Uncontrolled DM2 with severe hyperglycemia-resolved/Hypokalemia - He received insulin in the ER - Will resume his home insulin with SSI - Potassium is 2.9 will replace - IVF@100, acetone is negative, gap has closed 3. HTN/HLD - Will restart his home medications - continue to monitor 4. Depression/Anxiety - Will resume his home medications - Hopefully with the addition of the ativan for the EtOH, his mood should stabilize DVT: Heparin Diet: DM Code Visit Inpatient E&M: 06739 Subs Hosp L2
--- NOTE | 2018-01-01 08:40 | PN_ITS ---
Subjective: A little restless, and admits to hallucinations both auditory and visual. No seizure activity per the nurse Objective: General: Alert, Oriented x3, Cooperative, HEENT: Atraumatic, PERRLA, EOMI, Normocephalic Oral: Dry Mucosa Neck: Supple, No JVD Lungs: Clear to auscultation, Normal air movement, No rhonchi, No wheeze, No rales Cardiovascular: Regular rate, Regular Rhythm, Normal S1, Normal S2, No murmurs Abdomen: Soft, Non Tender, Non-Distended, No Hepato-splenomegaly Extremities: No edema, Capillary Refill Less than 3 Seconds Skin: No rashes, No breakdown Neurological: Neuro grossly intact, Sensory exam intact to light touch and pain Vitals/I&O's: Vital Signs Temp Pulse Resp BP Pulse Ox 98.0 F 74 18 142/100 H 96 01/01/18 04:32 01/01/18 04:32 01/01/18 04:32 01/01/18 04:32 01/01/18 04:32 Oxygen Delivery Method Room Air Weight: 202 lb 6.15 oz Body Mass Index (BMI) 28.2 Finger Stick Blood Glucose 234 Intake and Output for Last 24 Hours 12/30/17 12/31/17 01/01/18 23:59 23:59 23:59 Intake Total 4279 / 4279 5226 / 5226 2999 / 2999 Output Total 1075 / 1075 2250 / 2250 1650 / 1650 Balance 3204 / 3204 2976 / 2976 1349 / 1349 Laboratory Results 12/31/17 10:28: POC Glucose 231 H 12/31/17 12:49: POC Glucose 138 H 12/31/17 14:35: Sodium 141, Potassium 3.4 L, Chloride 106, Carbon Dioxide 28.0, Anion Gap 7, BUN 6 L, Creatinine 0.66 L, Estim Creat Clear Calc 148.95, Est GFR (MDRD) Af Amer 166, Est GFR (MDRD) Non-Af 137, BUN/Creatinine Ratio 9.1 L, Gluco se 100, Calcium 8.4 L 12/31/17 16:47: POC Glucose 235 H 12/31/17 21:37: POC Glucose 132 H 01/01/18 06:29: Sodium 140, Potassium 2.9 L, Chloride 103, Carbon Dioxide 28.0, Anion Gap 9, BUN 6 L, Creatinine 0.66 L, Estim Creat Clear Calc 148.95, Est GFR (MDRD) Af Amer 167, Est GFR (MDRD) Non-Af 138, BUN/Creatinine Ratio 9.1 L, Glucose 70 L, Calcium 8.5, Magnesium 1.6 01/01/18 06:54: POC Glucose 78 Current Medications Acetaminophen (Tylenol) 650 mg PO Q6H PRN PRN PRN Reason: PAIN Last Admin: 12/30/17 20:20 Dose: 650 mg Amlodipine Besylate (Norvasc) 5 mg PO DAILY [facility] Last Admin: 12/31/17 10:18 Dose: 5 mg Chlordiazepoxide (Librium) 50 mg PO Q8 [facility] Last Admin: 01/01/18 05:55 Dose: 50 mg Dextrose (D50w Syringe) 0 gm IV X1 PRN; Protocol PRN Reason: Hypoglycemia Dicyclomine HCl (Bentyl) 20 mg PO Q6H PRN PRN PRN Reason: abdominal discomfort Fluoxetine HCl (Prozac) 60 mg PO DAILY [facility] Last Admin: 12/31/17 10:18 Dose: 60 mg Fluticasone Propionate (Flonase Nasal [place]) 2 spray NASAL QHS [facility] Last Admin: 12/31/17 21:38 Dose: Not Given Folic [facility] ([facility]) [facility] Last Admin: 01/01/18 08:07 Dose: 1 mg Glucagon () 1 mg IM .X1 PRN PRN Reason: Hypoglycemia Heparin Sodium (Porcine) (Heparin Na) 5,000 unit SC Q12 [facility] Last Admin: 12/31/17 21:43 Dose: 5,000 unit Hydrochlorothiazide (Hctz) 25 mg PO DAILY [facility] Last Admin: 12/31/17 10:14 Dose: 25 mg Hydroxyzine Pamoate (Vistaril Pamoate Capsule) 50 mg PO Q6H PRN PRN PRN Reason: Mild Anxiety (score 1/3) Last Admin: 12/30/17 23:06 Dose: 50 mg Sodium Chloride () 1,000 mls @ 100 mls/hr IV .Q10H [facility] Last Admin: 01/01/18 03:12 Dose: 100 mls/hr Insulin Glargine (Lantus (Bkc)) 50 units SC QHS [facility] Last Admin: 12/31/17 21:43 Dose: 50 u Insulin Human Lispro (Humalog Kwikpen (Bkc)) 0 unit SQ ACHS [facility]; Protocol Last Admin: 01/01/18 07:50 Dose: Not Given Insulin Human Lispro (Humalog Kwikpen (Bkc)) 20 unit SC TIDCM [facility] Last Admin: 12/31/17 16:50 Dose: 20 u Lisinopril (Zestril) 20 mg PO DAILY [facility] Last Admin: 12/31/17 10:19 Dose: 20 mg Lorazepam (Ativan) 2 - 4 mg IV Q1H PRN PRN Reason: Severe Anxiety Magnesium Hydroxide (Milk Of Magnesia) 30 ml PO DAILY PRN PRN PRN Reason: Constipation Melatonin (Melatonin) 3 mg PO QHS [facility] Last Admin: 12/31/17 21:43 Dose: 3 mg Meloxicam (Mobic) 15 mg PO DAILY [facility] Last Admin: 12/31/17 10:14 Dose: 15 mg Methocarbamol (Methocarbamol) 750 mg PO Q6H PRN PRN PRN Reason: Muscle Aches Last Admin: 12/30/17 23:06 Dose: 750 mg Multivitamins (Multivitamin) [facility] Last Admin: 01/01/18 08:07 Dose: 1 tablet Nicotine (Nicoderm Cq (Pbkc)) 14 mg TRANSDERM. DAILY [facility] Last Admin: 12/31/17 10:18 Dose: 14 mg Nutritional Formula (Lactose Free) (Glucerna Shake) 120 ml PO 4X/DAY [facility] Last Admin: 12/31/17 21:38 Dose: Not Given Pantoprazole Sodium (Protonix) 20 mg PO DAILY [facility] Last Admin: 12/31/17 10:14 Dose: 20 mg Potassium Chloride (K-Dur) 60 meq PO X1 ONE Stop: 01/01/18 08:30 Quetiapine Fumarate (Seroquel) 50 mg PO QHS PRN PRN Reason: INSOMNIA Last Admin: 12/31/17 21:43 Dose: 50 mg Sodium Chloride () 5 - 30 ml IV UD PRN PRN Reason: SALINE FLUSH Last Admin: 01/01/18 07:43 Dose: 10 ml Thiamine HCl (Vitamin B1) [facility] Last Admin: 01/01/18 08:07 Dose: 100 mg Trazodone HCl (Desyrel) 50 mg PO QHS [facility] Last Admin: 12/31/17 21:43 Dose: 50 mg Medical Necessity - Tobacco Use Smoking Status: Current every day smoker Assessment/Plan All Active Problems Alcohol intoxication (Acute) Pancreatitis (Acute) Alcohol withdrawal (Acute) 1. Alcohol intoxications - Will start on the EtOH withdrawal protocol - Given his past history, very low threshold for transfer to the ICU for a precedex drip, he has also had good response in the past to phenobarb - Librium 50 mg TID and will be aggressive with the ativan, currently 2 mg IV q1 hour will increase to 2-4 mg q1 - He is terrified of going to the ICU and being intubated again - IVF@100 2. Uncontrolled DM2 with severe hyperglycemia-resolved/Hypokalemia - He received insulin in the ER - Will resume his home insulin with SSI - Potassium is 2.9 will replace - IVF@100, acetone is negative, gap has closed 3. HTN/HLD - Will restart his home medications - continue to monitor 4. Depression/Anxiety - Will resume his home medications - Hopefully with the addition of the ativan for the EtOH, his mood should stabilize DVT: Heparin Diet: DM Code Visit Inpatient E&M: 29655 Subs Hosp L2
[2018-01-01] MEDS: Glucerna Shake 120 ML LIQUID PO ×3 (09:03→15:58)
[2018-01-01] MEDS: Heparin Injection (Vial) 5,000 UNIT/ML VIAL 5000 UNIT SC ×2 (09:04→20:39)
[2018-01-01] MEDS: Lisinopril 20 MG Tablet PO (09:05)
[2018-01-01] MEDS: Pantoprazole Sodium 20 MG Tablet PO (09:05)
[2018-01-01] MEDS: Meloxicam 15 MG Tablet PO (09:05)
[2018-01-01] MEDS: FLUoxetine 20 MG Capsule 60 MG PO (09:05)
[2018-01-01] MEDS: amLODIPine 5 MG Tablet PO (09:06)
[2018-01-01] MEDS: hydroCHLOROthiazide 25 MG Tablet PO (09:06)
[2018-01-01] MEDS: Insulin Lispro 100 UNIT/ML INSULN.PEN 20 UNIT SC ×2 (09:16→15:59)
[2018-01-01 09:26] LABS: Bedside Glucose 187 mg/dL (70-110)
[2018-01-01 13:31] LABS: Bedside Glucose 146 mg/dL (70-110)
[2018-01-01 13:31] LABS: Bedside Glucose 68 mg/dL (70-110)
[2018-01-01] MEDS: Insulin Lispro 100 UNIT/ML INSULN.PEN SQ (15:58)
[2018-01-01 16:06] LABS: Bedside Glucose 245 mg/dL (70-110)
--- NOTE | 2018-01-01 19:23 | NURSING ---
01/01/20181810 Call, Pankaj, in pharmacy to make certain 4mg of Ativan q1 hour [total of 34mg this shift] is not something that I should be concerned with. Advised nothing to be concerned with.
[2018-01-01] MEDS: QUEtiapine 25 MG Tablet 50 MG PO (20:38)
[2018-01-01] MEDS: Fluticasone 0.05% 1 SPRAY NASAL.SRY 2 SPRAY NASAL (20:38)
[2018-01-01] MEDS: MELATONIN 3 MG TABLET PO (20:40)
[2018-01-01] MEDS: traZODone 50 MG Tablet PO (20:40)
[2018-01-01 21:55] LABS: Bedside Glucose 129 mg/dL (70-110)
[2018-01-02] VITALS (12 sets, daily range): BP systolic 112–136; BP diastolic 84–98; PULSE 71–89; RESP 16–20; TEMP 36.6–37.4; O2SAT 92–98
[2018-01-02 06:10] LABS: Anion Gap 9 (5-15); BUN 9 mg/dL (7-18); Calcium,Total 8.6 mg/dL (8.5-10.1); Chloride 107 mmol/L (98-107); Creatinine, Serum 0.64 mg/dL (0.70-1.30); EST Glomerular Filtration Rate 142 mL/min (>60); Est Glom Filt Rate - Afr Amer 172 mL/min (>60); Estimated Creatinine Clearance 153.61 ml/min; Glucose 128 mg/dL (74-106); Magnesium 1.9 mg/dL (1.6-2.6); Potassium 3.8 mmol/L (3.5-5.1); Sodium Level 141 mmol/L (136-145)
--- NOTE | 2018-01-02 06:55 | NURSING ---
Pt sleeping deeply, and not awakened to give 06:00 Librium.
[2018-01-02 06:56] LABS: Bedside Glucose 112 mg/dL (70-110)
[2018-01-02] MEDS: chlordiazePOXIDE 25 MG Capsule 50 MG PO (11:25)
[2018-01-02] MEDS: Folic Acid 1 MG Tablet PO (11:26)
[2018-01-02] MEDS: Multivitamins,Therapeutic Tablet 1 TABLET PO (11:26)
[2018-01-02] MEDS: 0.9% Normal Saline 1,000 ML 100 ML IV (11:27)
[2018-01-02] MEDS: Thiamine Hydrochloride 100 MG Tablet PO (11:27)
[2018-01-02] MEDS: hydroCHLOROthiazide 25 MG Tablet PO (11:27)
[2018-01-02] MEDS: Heparin Injection (Vial) 5,000 UNIT/ML VIAL 5000 UNIT SC ×2 (11:27→21:31)
[2018-01-02] MEDS: Meloxicam 15 MG Tablet PO (11:27)
[2018-01-02] MEDS: Glucerna Shake 120 ML LIQUID PO ×2 (11:27→17:18)
[2018-01-02] MEDS: FLUoxetine 20 MG Capsule 60 MG PO (11:28)
[2018-01-02] MEDS: Pantoprazole Sodium 20 MG Tablet PO (11:28)
[2018-01-02] MEDS: amLODIPine 5 MG Tablet PO (11:28)
[2018-01-02] MEDS: Lisinopril 20 MG Tablet PO (11:29)
[2018-01-02] MEDS: Insulin Lispro 100 UNIT/ML INSULN.PEN 20 UNIT SC ×2 (11:47→17:15)
[2018-01-02 11:55] LABS: Bedside Glucose 112 mg/dL (70-110)
--- NOTE | 2018-01-02 13:45 | CASEMGMT ---
[facility] came and spoke with patient. [facility] offered a couple of times and a couple different places to go for inpatient rehab for alcoholism and patient had reasons for why he could not do this. [facility] will check in with patient in am again. Jaylene CHACKO MSW
[2018-01-02] MEDS: Insulin Lispro 100 UNIT/ML INSULN.PEN SQ (17:15)
[2018-01-02 17:21] LABS: Bedside Glucose 161 mg/dL (70-110)
--- NOTE | 2018-01-02 19:40 | PN_ITS ---
Subjective: She was seen and examined today, he appears lethargic from benzodiazepines, I have decided to reduce his dose of Librium and Ativan, I had some brief conversations with him today about what his plans are after leaving the hospital, he stated that he plans to go to [place] to his brothers home and then go into what he calls a rehab facility [place] where he can stay for a year-he states his brother is going to pay for the cost of this. I had Gordy Nolan come in today and talk with the patient, they are going to get back with the patient tomorrow about recommendations if he decides to go to an inpatient facility in [place]. I am very skeptical that the patient actually is going to clean up after several failures of trying to quit alcohol. I told the patient today that I would be glad to discharge him on some temporary Librium on a program basis if he would agree to stop drinking altogether, the patient stated that he would. For now, I think the patient is too lethargic and sedated from benzodiazepines to discharge him at this time and also there may be a possibility depending on what [facility]y Nolan finds out that he could go into an inpatient rehab facility set up by Gordy Nolan if he agrees to it. I have adjusted the patient's medications today. - Physical Exam General: Alert, Oriented x3, Cooperative, No apparent distress, Well developed, Well nourished HEENT: Atraumatic, PERRLA, EOMI, Normocephalic Oral: Moist Mucosa Neck: Supple, No Nuchal Rigidity, Trachea Midline Lungs: Clear to auscultation, Normal air movement, No rhonchi, No wheeze, No rales Cardiovascular: Regular rate, Regular Rhythm, Normal S1, Normal S2, No murmurs, No Ectopic Activity Abdomen: Bowel Sounds Present, Soft, Non Tender, Non-Distended Extremities: No clubbing, No cyanosis, No edema, Capillary Refill Less than 3 Seconds Skin: No rashes, No breakdown Musculoskeletal: No Tenderness to Palpation of Joints or Extremities Neurological: Cranial nerves II-XII grossly intact, Neuro grossly intact, Sensory exam intact to light touch and pain, Coordination normal Psych/Mental Status: Appropriate, Flat Affect, Alert and oriented to time, place, person, mood and affect Vital Signs Temp Pulse Resp BP Pulse Ox 98.7 F 89 16 128/84 H 98 01/02/18 13:52 10/08/18 15:08 01/02/18 13:52 01/02/18 13:52 01/02/18 13:52 Oxygen Delivery Method Room Air Weight: 91.8 kg Body Mass Index (BMI) 28.2 Finger Stick Blood Glucose 234 Intake and Output for Last 24 Hours 12/31/17 01/01/18 01/02/18 23:59 23:59 23:59 Intake Total 5226 / 5226 6916 / 6916 3676 / 3676 Output Total 2250 / 2250 5050 / 5050 725 / 725 Balance 2976 / 2976 1866 / 1866 2951 / 2951 Laboratory Tests Past 24 Hrs 01/02/18 05:36 Sodium 141 Potassium 3.8 Chloride 107 Carbon Dioxide 25.0 Anion Gap 9 BUN 9 Creatinine 0.64 L Estim Creat Clear Calc 153.61 Est GFR (MDRD) Af Amer 172 Est GFR (MDRD) Non-Af 142 BUN/Creatinine Ratio 14.0 Glucose 128 H Calcium 8.6 Magnesium 1.9 POC Glucose 01/02/18 01/02/18 01/02/18 17:13 11:46 06:51 POC Glucose 161 H 112 H 112 H 01/01/18 20:36 POC Glucose 129 H Medical Necessity - Tobacco Use Smoking Status: Current every day smoker Assessment/Plan All Active Problems Alcohol intoxication (Acute) Pancreatitis (Resolved) Alcohol withdrawal (Acute) #1 acute alcohol withdrawal-patient's symptoms seem to be controlled on be nzodiazepines at this point, I think it would be love to de-escalate the benzodiazepines and see how the patient tolerates it, orders were put in. #2 alcohol intoxication-resolved, patient's blood alcohol level was mildly elevated when he was admitted #3 type 2 diabetes-appears to be under control during this hospitalization #4 hypertension #5 chronic alcoholism #6 chronic depression #7 hyperlipidemia Patient will be reevaluated tomorrow for possible discharge home or if the patient consents and it can be arranged, he will be admitted to an inpatient alcohol detox facility if [facility] can arrange this Code Visit Inpatient E&M: 00882 Subs Hosp L2
[2018-01-02 21:25] LABS: Bedside Glucose 97 mg/dL (70-110)
[2018-01-02] MEDS: chlordiazePOXIDE 25 MG Capsule PO (21:31)
[2018-01-03] MEDS: QUEtiapine 25 MG Tablet 50 MG PO (00:18)
[2018-01-03 02:00] VITALS: BP 139/84; PULSE 68; RESP 16; TEMP 36.8; O2SAT 97
[2018-01-03 03:12] VITALS: PULSE 80
[2018-01-03 06:43] VITALS: BP 118/85; PULSE 65; RESP 18; TEMP 36.4; O2SAT 97
[2018-01-03] MEDS: chlordiazePOXIDE 25 MG Capsule PO (06:49)
[2018-01-03 06:56] LABS: Bedside Glucose 170 mg/dL (70-110)
[2018-01-03 06:57] VITALS: PULSE 70
[2018-01-03 09:22] VITALS: BP 130/76; PULSE 75; RESP 16; TEMP 36.5; O2SAT 98
[2018-01-03] MEDS: Insulin Lispro 100 UNIT/ML INSULN.PEN SQ (09:23)
[2018-01-03] MEDS: Insulin Lispro 100 UNIT/ML INSULN.PEN 20 UNIT SC (09:23)
[2018-01-03] MEDS: Heparin Injection (Vial) 5,000 UNIT/ML VIAL 5000 UNIT SC (09:23)
[2018-01-03] MEDS: Lisinopril 20 MG Tablet PO (09:25)
[2018-01-03] MEDS: Pantoprazole Sodium 20 MG Tablet PO (09:25)
[2018-01-03] MEDS: Glucerna Shake 120 ML LIQUID PO (09:25)
[2018-01-03] MEDS: Thiamine Hydrochloride 100 MG Tablet PO (09:25)
[2018-01-03] MEDS: Meloxicam 15 MG Tablet PO (09:26)
[2018-01-03] MEDS: Folic Acid 1 MG Tablet PO (09:26)
[2018-01-03] MEDS: FLUoxetine 20 MG Capsule 60 MG PO (09:26)
[2018-01-03] MEDS: Multivitamins,Therapeutic Tablet 1 TABLET PO (09:26)
[2018-01-03] MEDS: hydroCHLOROthiazide 25 MG Tablet PO (09:26)
[2018-01-03] MEDS: amLODIPine 5 MG Tablet PO (09:26)
--- NOTE | 2018-01-03 10:23 | DCINST_ITS ---
You will use the following diet at home:: No restrictions Your food should be the consistency of: Regular Your liquids should be the consistency of: Regular/Thin Discharge Activity: Return to Normal Activity Weight Bearing Status: Full weight bearing Additional Instructions: DO NOT DRINK Allergies/Adverse Reactions: Allergies bupropion HCl [From Wellbutrin] Allergy (Verified 12/29/17 10:53) Other seizures Medications to take at Discharge Amlodipine [Norvasc] 5 mg PO DAILY 09/05/13 Omeprazole [Prilosec] 20 mg PO DAILY 09/05/13 Meloxicam 15 mg PO DAILY 10/17/17 Fluoxetine [Prozac] 60 mg PO DAILY 12/06/17 Quetiapine Fumarate [Seroquel] 50 mg PO QHS PRN 12/06/17 Acetaminophen [Tylenol Tablet] 650 mg PO Q6H PRN PRN tablet 12/16/17 Folic Acid 1 mg PO DAILY@0800 12/29/17 Insulin Glargine,Hum.rec.anlog [Lantus] 50 unit SC QHS 12/29/17 Insulin Lispro [Humalog KwikPen] 20 units SQ TIDCM 12/29/17 Lisinopril/Hydrochlorothiazide [Zestoretic 20-25 mg Tablet] 1 each PO DAILY 12/29/17 Melatonin 3 mg PO QHS 12/29/17 traZODone [Desyrel] 50 mg PO QHS 12/29/17 Chlordiazepoxide [Librium] 25 mg PO 4X/DAY PRN PRN 14 Days #56 cap 01/03/18 The following prescriptions were given: Chlordiazepoxide [Librium] 25 mg PO 4X/DAY PRN PRN 14 Days #56 cap PRN Reason: Agitation Primary Care Physician: Jose Enrique Shoemaker MD [Primary Care Provider] - Please follow up with your Primary Care Physician in: [place] 7-10 DAYS Test Results: Test results from this visit will be discussed in further detail at your follow- up appointment, if applicable.
[2018-01-03 10:44] VITALS: PULSE 86
--- NOTE | 2018-01-05 08:52 | DS.PCM_ITS ---
Discharge Date and Diagnosis Date of Admission: 12/29/17 Date of Discharge: 01/03/18 - Primary Discharge Diagnosis #1 alcohol intoxication #2 alcohol withdrawal-acute #3 chronic alcoholism #4 type 2 diabetes #5 hypertension #6 hyperlipidemia #7 anxiety and depression #8 noncompliance with medical regimen #9 hypomagnesemia #10 hypokalemia - Secondary Discharge Diagnosis Chronic Problems Alcoholic hepatitis (Chronic) Alcohol-induced seizure (Chronic) Anxiety and depression (Chronic) Obesity (BMI 30.0-34.9) (Chronic) Chronic pain syndrome (Chronic) Diabetes mellitus, type II (Chronic) HTN (hypertension) (Chronic) HLD (hyperlipidemia) (Chronic) Alcohol abuse (Chronic) Hospital Course and Treatment Operations: None Procedures: None Summary of Care Provided: The patient is a 47 year old M was seen in the emergency room at [facility] with a chief complaint of alcohol intoxication and desire to quit drinking. Patient had been admitted before to this institution and had gone through DTs and was in the ICU at one time during one episode of DTs. Labs were remarkable for a low magnesium of 1.3, potassium was 3.4, glucose was 171 and troponin was 0.056. Patient's blood alcohol level was 431 and his tox screen was positive for benzodiazepines. Patient was admitted to PCU for alcohol intoxication and was given benzodiazepines for alcohol withdrawal. Patient's potassium and magnesium was corrected with medication. There were no major complications with his alcohol withdrawal and the patient had no seizures or agitation. 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 It became evident that the patient was probably not even about wanting to go into an inpatient detox center. I had multiple conversations with the patient and stated that I would discharge him to home on Librium if he would promise not to have any alcohol intake until he went to [place] to be with his brother. Patient confirmed this. On 01/03/18 patient was seen and examined and felt to be in stable condition for discharge home Physical exam: On examination he appeared in good health and spirits. Vital signs as documented. Skin warm and dry and without overt rashes. Neck without JVD. Lungs clear. Heart exam notable for regular rhythm, normal sounds and absence of murmurs, rubs or gallops. Abdomen unremarkable and without evidence of organomegaly, masses, or abdominal aortic enlargement. Extremities nonedematous. Neuro: Cranial nerves II through XII are intact, no focal motor deficits were noted, patient has a slight tremor at rest. Psych: Patient is alert and oriented x3 and appropriate, he does not appear to be anxious or depressed. - Physical Exam Vital Signs Temp Pulse Resp BP Pulse Ox 97.7 F L 86 16 130/76 H 98 01/03/18 09:22 01/03/18 10:44 01/03/18 09:22 01/03/18 09:22 01/03/18 09:22 Oxygen Delivery Method Room Air Weight: 91.8 kg Body Mass Index (BMI) 28.2 Finger Stick Blood Glucose 234 Intake and Output for Last 24 Hours 01/03/18 01/04/18 01/05/18 23:59 23:59 23:59 Intake Total 720 / 720 Output Total 2600 / 2600 Balance -1880 / -1880 Discharge Activity: Return to Normal Activity Weight Bearing Status: Full weight bearing Home Medications: Medications to take at Discharge Amlodipine [Norvasc] 5 mg PO DAILY 09/05/13 Omeprazole [Prilosec] 20 mg PO DAILY 09/05/13 Meloxicam 15 mg PO DAILY 10/17/17 Fluoxetine [Prozac] 60 mg PO DAILY 12/06/17 Quetiapine Fumarate [Seroquel] 50 mg PO QHS PRN 12/06/17 Acetaminophen [Tylenol Tablet] 650 mg PO Q6H PRN PRN tablet 12/16/17 Folic Acid 1 mg PO DAILY@0800 12/29/17 Insulin Glargine,Hum.rec.anlog [Lantus] 50 unit SC QHS 12/29/17 Insulin Lispro [Humalog KwikPen] 20 units SQ TIDCM 12/29/17 Lisinopril/Hydrochlorothiazide [Zestoretic 20-25 mg Tablet] 1 each PO DAILY 12/29/17 Melatonin 3 mg PO QHS 12/29/17 traZODone [Desyrel] 50 mg PO QHS 12/29/17 Chlordiazepoxide [Librium] 25 mg PO 4X/DAY PRN PRN 14 Days #56 cap 01/03/18 Following Prescrptions Were Given to Patient: Chlordiazepoxide [Librium] 25 mg PO 4X/DAY PRN PRN 14 Days #56 cap PRN Reason: Agitation Primary Care Physician: Jose Enrique Shoemaker MD [Primary Care Provider] - Please follow up with your Primary Care Physician in: [place] 7-10 DAYS Please Follow Up With: Jose Enrique Shoemaker MD When: 7-10 days Disposition: Home Minutes spent on discharge:: 32 Patient Condition:: Stable Medical Necessity - Tobacco Use Smoking Status: Current every day smoker Meaningful Use Info Meaningful Use Diagnoses (Choose all that apply): None applicable Code Visit Inpatient E&M: 21591 Disch Hosp
== END 2018-01-03 11:07 | disposition home or self-care (01) | DRG 434 ==
LOC: ED 11:05 → MS2 13:14 → PCU 13:33
PROVIDERS: Admitting Provider Family Medicine; Emergency Provider Emergency Medicine; Family Provider Family Medicine; PCP Family Medicine; Visit Provider Internal Medicine
DX: F10.229 Alcohol dependence with intoxication, unspecified (principal); E11.65 Type 2 diabetes mellitus with hyperglycemia; F10.239 Alcohol dependence with withdrawal, unspecified; Z79.4 Long term (current) use of insulin; E87.6 Hypokalemia; E78.5 Hyperlipidemia, unspecified; I10 Essential (primary) hypertension; F32.9 Major depressive disorder, single episode, unspecified; F41.9 Anxiety disorder, unspecified; Z23 Encounter for immunization
CPT/HCPCS: 36415; 80048; 80076; 80307; 80320; 81001; 82009; 82962; 83690; 83735; 84100; 84484; 85025; 93005; 97802; 99285; 99406; J7030; 90686; A4216; G0480; J2405

== ENCOUNTER 2018-01-03 23:25 | Emergency (ER) | payer MEDICAID, SELFPAY ==
[2018-01-03 23:26] VITALS: BP 125/85; PULSE 106; RESP 16; TEMP 36.7; O2SAT 98; BMI 30.7
[2018-01-04 01:30] VITALS: BP 116/82; PULSE 87; RESP 23; O2SAT 94
[2018-01-04 01:45] LABS: Amphetamine Urine VISTA NEGATIVE (<1000 ng/mL); Barbiturate Urine VISTA NEGATIVE (< 200 ng/mL); Benzodiazepine Urine VISTA POSITIVE (< 200 ng/mL); Cocaine Urine VISTA NEGATIVE (< 300 ng/mL); Ecstacy Urine VISTA NEGATIVE (< 500 ng/mL); Methadone Urine VISTA NEGATIVE (< 300 ng/mL); PCP Urine VISTA NEGATIVE (< 25 ng/mL); THC Urine VISTA NEGATIVE (< 50 ng/mL); Vista UDS pH Range 6
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
[2018-01-04 02:49] VITALS: BP 109/71; PULSE 86; RESP 14; O2SAT 97
[2018-01-04 03:01] LABS: Bedside Glucose 87 mg/dL (70-110)
[2018-01-04 04:02] VITALS: BP 107/76; PULSE 85; RESP 27; O2SAT 95
[2018-01-04 06:01] LABS: Absolute Lymphocyte Count 5.12 X10^3/ul (0.83-4.51); Absolute Neutrophil Count 4.1 X10^3/uL (2.0-7.7); Basophil# 0.04 X10^3/uL; Basophil% 0.4 % (0-1); Differential Indicated SCAN CRITERIA MET; Eosinophil# 0.38 X10^3/uL; Eosinophils% 3.5 % (0-5); Hematocrit 45.1 % (40-54); Hemoglobin 15.2 g/dl (13.0-16.5); Lymphocyte # 5.12 X10^3/ul (4.0); Lymphocyte % 46.8 % (19-41); Mean Corp Hgb Conc 33.7 g/gl (32-36); Mean Corpuscular Hgb 32.2 pg (27.0-32.0); Mean Corpuscular Volume 95.6 fL (80-94); Mean Platelet Vol. 9.9 fl (6.2-12.0); Monocyte# 1.24 X10^3/uL; Monocyte% 11.3 % (0-10); Neutrophil # 4.13 X10^3/uL (2.7-7.7); Neutrophil % 37.6 % (47-70); POSITIVE COUNT NO; POSITIVE DIFFERENTIAL YES; POSITIVE MORPHOLOGY NO; Platelet Count 207 K/mm3 (150-450); RBC Distribution Width CV 17.3 % (11.6-14.6); RBC Distribution Width SD 58.6 fl (35.1-43.9); Red Blood Count 4.72 M/mm3 (4.6-6.2)
[2018-01-04 06:08] LABS: Anion Gap 10 (5-15); BUN 9 mg/dL (7-18); BUN/Creat Ratio 9.4 RATIO (10-20); Calcium,Total 9.2 mg/dL (8.5-10.1); Chloride 102 mmol/L (98-107); Creatinine, Serum 0.96 mg/dL (0.70-1.30); EST Glomerular Filtration Rate 90 mL/min (>60); Est Glom Filt Rate - Afr Amer 109 mL/min (>60); Glucose 100 mg/dL (74-106); Potassium 3.8 mmol/L (3.5-5.1); Sodium Level 141 mmol/L (136-145)
[2018-01-04 06:21] VITALS: RESP 18
[2018-01-04 06:39] LABS: Atypical Lymphocyte RARE %; Differential Comment SCANNED
[2018-01-04 07:45] VITALS: RESP 20
--- NOTE | 2018-01-04 07:50 | ED.RN ---
pT SLEEPING AND STIRRING WITHOUT DISTRESS NOTED.
--- NOTE | 2018-01-04 09:37 | ED.RN ---
VALERIE CALLED FROM [facility]. HE SAID HE LITERALLY JUST LEFT [facility] SO HE IS NOT APPROPRIATE FOR ADMISSION.
--- NOTE | 2018-01-04 10:15 | ED.DEP ---
ED Disposition - Plan for ED Patient: Disposition: Home or Assisted Living Chief Complaint: Substance Abuse Diagnosis: Alcohol dependence Instructions: ED Alcohol Abuse Referrals: Jose Enrique Shoemaker MD [Primary Care Provider] - As Needed Additional Instructions: Follow-up with your 180 appointment later today. Plenty fluids and rest.
--- NOTE | 2018-01-04 10:31 | ED.RN ---
Pt left room and returned and spoke with rn in the [facility]. alert and gait steady. verified has appt at 180 today at 1530. verbalized commitment to not drinkbefore meeting today. states he'll stay at [facility] today. he understood why he wasn't admitted to [facility] again.
== END 2018-01-04 10:33 | disposition home or self-care (01) ==
PROVIDERS: Emergency Provider Emergency Medicine; Family Provider Family Medicine; PCP Family Medicine
DX: F10.20 Alcohol dependence, uncomplicated (principal); I10 Essential (primary) hypertension; E11.9 Type 2 diabetes mellitus without complications; Y90.4 Blood alcohol level of 80-99 mg/100 ml
CPT/HCPCS: 80048; 80307; 80320; 82962; 85025; 99282; G0480

== ENCOUNTER → 2018-01-04 21:33 | Outpatient (REF) | payer SELFPAY ==
[2018-01-04 16:24] VITALS: BP 116/78; PULSE 103; RESP 14; RESP 16; TEMP 37.5; O2SAT 96; BMI 28.4
--- NOTE | 2018-01-04 17:46 | EKG12_ITS ---
Test Reason : DYSRHYTHMIA Blood Pressure : / mmHG Vent. Rate : 086 BPM Atrial Rate : 086 BPM P-R Int : 222 ms QRS Dur : 092 ms QT Int : 402 ms P-R-T Axes : 050 -43 026 degrees QTc Int : 481 ms Sinus rhythm with 1st degree A-V block Left axis deviation Inferior infarct , age undetermined Abnormal ECG Confirmed by ANGELINA TRAMMELL, FIORELLA ([id number]), video effects editor RACHEL CALDERÓN ([id number]) on 01/09/2018 3:01:03 PM Referred By: ROSEMARY Confirmed By:FIORELLA ALFARO MD
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
[2018-01-04 18:09] LABS: Bacteria 0 SEEN /hpf (None Seen); Mucous, Urine 0 SEEN /hpf (<or=2+); Red Blood Cells-Urine 0 SEEN /hpf (0-5); Squamous Epithelial Cells - UA 0 SEEN /hpf (0-5); White Blood Cells 0 SEEN /hpf (0-5)
[2018-01-04] MEDS: 0.9% Normal Saline 1,000 ML 999 ML IV (18:11)
[2018-01-04] MEDS: Ondansetron 4 MG/2 ML Vial IV (18:12)
[2018-01-04] MEDS: Diphth,Pertuss(Acell),Tet Vac 0.5 ML Vial IM (18:12)
[2018-01-04 18:17] LABS: Color, Urine Yellow (Yellow); Glucose, Dipstick Normal (Normal); Ketone-Dipstick Negative (Negative); Leukocyte Esterase-Dipstick Negative /ul (Negative); Nitrite-Dipstick Negative (Negative); Occult Blood-Urine Negative /ul (Negative); Protein-Dipstick Negative (Negative); Specific Gravity, Urine 1.005 (1.002-1.030); Urine Bilirubin Dipstick Negative (Negative); Urine Clarity Clear (Clear); Urine Urobilinogen Normal (Normal)
[2018-01-04 18:20] LABS: Bedside Glucose 141 mg/dL (70-110)
[2018-01-04 18:24] LABS: Absolute Lymphocyte Count 3.05 X10^3/ul (0.83-4.51); Basophil# 0.03 X10^3/uL; Basophil% 0.4 % (0-1); Eosinophil# 0.14 X10^3/uL; Eosinophils% 1.7 % (0-5); Hematocrit 43.9 % (40-54); Hemoglobin 15.2 g/dl (13.0-16.5); Lymphocyte # 3.05 X10^3/ul (4.0); Lymphocyte % 37.3 % (19-41); Mean Corp Hgb Conc 34.6 g/gl (32-36); Mean Corpuscular Hgb 32.4 pg (27.0-32.0); Mean Corpuscular Volume 93.6 fL (80-94); Mean Platelet Vol. 10.2 fl (6.2-12.0); Monocyte# 0.92 X10^3/uL; Monocyte% 11.2 % (0-10); Neutrophil % 48.9 % (47-70); Platelet Count 217 K/mm3 (150-450); RBC Distribution Width CV 17.1 % (11.6-14.6); RBC Distribution Width SD 57.1 fl (35.1-43.9); Red Blood Count 4.69 M/mm3 (4.6-6.2); White Blood Count 8.2 K/mm3 (4.4-11.0)
[2018-01-04 18:25] LABS: Prothrombin Time (Protime)PT. 13.5 SECONDS (11.7-14.9)
[2018-01-04 18:32] LABS: POSITIVE COUNT NO; POSITIVE DIFFERENTIAL NO; POSITIVE MORPHOLOGY NO
[2018-01-04 18:41] LABS: AST(SGOT) 68 U/L (15-37); Alanine Aminotransfer ALT/SGPT 106 U/L (16-61); Albumin, Serum 3.5 g/dL (3.2-5.0); Alkaline Phosphatase 97 U/L (45-117); Anion Gap 10 (5-15); BUN 9 mg/dL (7-18); BUN/Creat Ratio 9.8 RATIO (10-20); Bilirubin, Direct 0.11 mg/dL (0.00-0.30); Chloride 106 mmol/L (98-107); Creatinine, Serum 0.92 mg/dL (0.70-1.30); EST Glomerular Filtration Rate 94 mL/min (>60); Est Glom Filt Rate - Afr Amer 114 mL/min (>60); Estimated Creatinine Clearance 110.12 ml/min; Globulin 4.2 g/dL (2.2-4.2); Glucose 137 mg/dL (74-106); Potassium 4.2 mmol/L (3.5-5.1); Protein, Total 7.7 g/dL (6.4-8.2); Sodium Level 142 mmol/L (136-145)
[2018-01-04 18:42] LABS: Amphetamine Urine VISTA NEGATIVE (<1000 ng/mL); Barbiturate Urine VISTA NEGATIVE (< 200 ng/mL); Benzodiazepine Urine VISTA POSITIVE (< 200 ng/mL); Cocaine Urine VISTA NEGATIVE (< 300 ng/mL); Ecstacy Urine VISTA NEGATIVE (< 500 ng/mL); Methadone Urine VISTA NEGATIVE (< 300 ng/mL); PCP Urine VISTA NEGATIVE (< 25 ng/mL); THC Urine VISTA NEGATIVE (< 50 ng/mL); Vista UDS pH Range 5
[2018-01-04 19:27] VITALS: BP 140/78; PULSE 110; RESP 14; O2SAT 96
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
[2018-01-04] MEDS: Acetaminophen 500 MG Tablet 1000 MG PO (21:09)
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
[2018-01-04 21:29] VITALS: BP 132/90; PULSE 95; RESP 16; O2SAT 98
== END ==
LOC: ED 21:33
PROVIDERS: Family Provider Family Medicine; PCP Family Medicine; Visit Provider Emergency Medicine
DX: S01.511A Laceration without foreign body of lip, initial encounter (principal); V49.88XA Car occupant (driver) (passenger) injured in other specified transport accidents, initial encounter; E11.9 Type 2 diabetes mellitus without complications; Z59.0 Homelessness; F10.229 Alcohol dependence with intoxication, unspecified
CPT/HCPCS: 70450; 71250; 72125; 74176; 80048; 80076; 80307; 80320; 81001; 82962; 85025; 85610; 90715; 93005; J7030; A4216; G0480; J2405

== ENCOUNTER 2018-01-05 17:18 | Emergency (ER) | payer MEDICAID, SELFPAY ==
[2018-01-05 17:20] VITALS: BP 112/81; PULSE 85; RESP 18; TEMP 36.6; O2SAT 96; BMI 28.5
--- NOTE | 2018-01-05 17:24 | CT_ITS ---
STUDY: CT BRAIN WITHOUT CONTRAST REASON FOR EXAM: Male, 47 years old. PT INTOXICATED, FELL DOWN 5 STEPS RADIATION DOSAGE (If Supplied By Facility): CTDIvol = ( 44.99 ) mGy, DLP = ( 812.98 ) mGycm TECHNIQUE: Transaxial CT imaging of the brain was performed without administration of intravenous contrast material. Individualized dose optimization techniques were used for this CT. COMPARISON: 01.04.18 FINDINGS: Normal soft tissue structures. Normal calvarium. Normal size ventricles and extra-axial spaces for the patient's age. Normal white matter tracts of the cerebral hemispheres. Normal basal ganglia and thalami. Normal brainstem. Normal cerebellum. There is no intracranial hemorrhage. There are no findings of an acute ischemic infarction. Normal visualized paranasal sinuses. CT/Brain/Head without Contrast IMPRESSION: Normal unenhanced CT scan of the brain. Electronically Signed: Hunter Reynoso MD at 18:11 EDT , Service support ,
--- NOTE | 2018-01-05 17:25 | EKG12_ITS ---
Test Reason : INTOX Blood Pressure : / mmHG Vent. Rate : 096 BPM Atrial Rate : 096 BPM P-R Int : 176 ms QRS Dur : 090 ms QT Int : 386 ms P-R-T Axes : 045 -34 034 degrees QTc Int : 487 ms Normal sinus rhythm Possible Left atrial enlargement Left axis deviation Inferior infarct , age undetermined Abnormal ECG Confirmed by ANGELINA TRAMMELL, FIORELLA ([id number]), videotape editor RACHEL CALDERÓN ([id number]) on 01/09/2018 3:40:30 PM Referred By: ROGER Confirmed By:FIORELLA ALFARO MD
--- NOTE | 2018-01-05 17:26 | CT_ITS ---
EXAM: CT SPINE - CERVICAL WITHOUT IV REASON FOR EXAM: Male, 47 years old. PT INTOXICATED, FELL DOWN 5 STEPS RADIATION DOSAGE (If Supplied By Facility): CTDIvol = ( 26.35 ) mGy, DLP = ( 636.64 ) mGycm Individualized dose optimization techniques were used for this CT. TECHNIQUE: Multiplanar images were obtained of the cervical spine. IV contrast was not utilized. COMPARISON: None. FINDINGS: The vertebral bodies do maintain their height. The odontoid process is intact. There is no anterolisthesis or fracture. No pre-vertebral soft tissue swelling is seen. The intravertebral disc height is lost. There are scattered lymph nodes in the neck. There are degenerative changes of the osseous structures. There is bilateral facet arthropathy. There are scattered levels of foraminal stenosis. CT/Spine Cervical without Contras IMPRESSION: Degenerative changes of the cervical spine. No acute abnormality of the spine. Electronically Signed: Hunter Reynoso MD at 18:12 EDT , Service support ,
[2018-01-05] MEDS: Diphth,Pertuss(Acell),Tet Vac 0.5 ML Vial IM (17:36)
[2018-01-05 18:04] LABS: Absolute Neutrophil Count 4.1 X10^3/uL (2.0-7.7); Basophil# 0.03 X10^3/uL; Basophil% 0.4 % (0-1); Eosinophil# 0.05 X10^3/uL; Eosinophils% 0.6 % (0-5); Hematocrit 47.6 % (40-54); Hemoglobin 15.9 g/dl (13.0-16.5); Lymphocyte % 28.4 % (19-41); Mean Corp Hgb Conc 33.4 g/gl (32-36); Mean Corpuscular Hgb 32.1 pg (27.0-32.0); Mean Corpuscular Volume 96.2 fL (80-94); Mean Platelet Vol. 10.3 fl (6.2-12.0); Monocyte# 1.41 X10^3/uL; Monocyte% 18.2 % (0-10); Neutrophil # 4.05 X10^3/uL (2.7-7.7); Neutrophil % 52.1 % (47-70); Platelet Count 225 K/mm3 (150-450); RBC Distribution Width CV 16.8 % (11.6-14.6); Red Blood Count 4.95 M/mm3 (4.6-6.2); White Blood Count 7.8 K/mm3 (4.4-11.0)
[2018-01-05 18:06] LABS: POSITIVE COUNT NO; POSITIVE DIFFERENTIAL NO; POSITIVE MORPHOLOGY NO
[2018-01-05 18:08] LABS: Prothrombin Time (Protime)PT. 13.2 SECONDS (11.7-14.9)
[2018-01-05 18:19] LABS: ALB/GLOB Ratio 0.8 RATIO (0.9-2.4); AST(SGOT) 47 U/L (15-37); Alanine Aminotransfer ALT/SGPT 88 U/L (16-61); Albumin, Serum 3.8 g/dL (3.2-5.0); Alkaline Phosphatase 102 U/L (45-117); Anion Gap 8 (5-15); BUN 7 mg/dL (7-18); Calcium,Total 8.9 mg/dL (8.5-10.1); Chloride 103 mmol/L (98-107); Creatinine, Serum 0.87 mg/dL (0.70-1.30); EST Glomerular Filtration Rate 100 mL/min (>60); Est Glom Filt Rate - Afr Amer 121 mL/min (>60); Globulin 4.7 g/dL (2.2-4.2); Glucose 211 mg/dL (74-106); Protein, Total 8.5 g/dL (6.4-8.2); Sodium Level 140 mmol/L (136-145)
[2018-01-05 18:55] VITALS: BP 135/96; PULSE 84; RESP 12; O2SAT 95
[2018-01-05 20:11] VITALS: BP 128/76; PULSE 84; RESP 17; O2SAT 96
[2018-01-05] MEDS: Acetaminophen 325 MG Tablet 650 MG PO (21:33)
--- NOTE | 2018-01-05 21:48 | ED.VISSUMM ---
- ER Visit Summary Date of Service: 01/05/18 Chief Complaint: Head injury status post fall History of Present Illness: The patient is a 47 M who was recently brought to the emergency room for intoxication and reported injury. Workup at that time was negative. He states he fell down 5 or more steps. He is amnestic. He complains of headache. He complains of pain and injury to his right ear. He denies any double vision, blurred vision or loss of vision. He denies muffled hearing or ringing in his ears. He denies drainage from his nose. He denies neck pain. He denies paresthesia, anesthesia motors. He denies chest pain, shortness of breath or difficulty breathing. He does report nausea without vomiting. He has no other complaints Physical Examination: Vital signs noted and blood pressure is slightly elevated. There is a 3.5 cm complex laceration of the right ear with involvement of cartilage. The external auditory canal is intact. The TM is normal with no hemotympanum. There is no clinical findings of basal skull fracture. Pupils equal round reactive. Extraocular muscles are intact. Sclerae anicteric. There is no subconjunctival hemorrhage noted. Dentition is normal. No evidence of malocclusion and no pain abrasion over the TMJ with palpation and opening closing his mouth. Trachea midline. He was placed in a c-collar since clinically he cannot be cleared. Heart is regular without murmur, gallop or rub. S1 and S2 are normal. Lungs are clear to auscultation with good movement of air bilaterally. Abdomen is soft nontender. Bowel sounds are present normal. There is no pain palpation of the pelvis. No pain palpation of the dorsal, lumbar or sacral vertebrae. There is no pain palpation of the upper extremity or lower extremity. Distal pulses noted and symmetric. GCS is 15. He is alert and is oriented. Motor spiral 5. Sensation intact. Gait was not assessed. Test Results: CT of the head reviewed by me interpreted by radiologist as negative for fracture, subdural hematoma, epidural hematoma, subarachnoid hemorrhage, intraparenchymal bleed or pneumocranium. CT of the spine was interpreted by radiologist as negative for any acute findings. EKG sinus rhythm rate of 86 with a first-degree AV block, IA interval 222 ms. QRS duration and QT interval normal. Free [place]il is normal. CBC is unremarkable. ALT and AST are elevated at 85 and 47 respectively. INR is normal. Glucose is elevated, 211. Emergency Department Course and Treatment: Since patient is clinically intoxicated and alcohol level was elevated. He was placed in a c-collar and CT of the head and neck were obtained. Patient will require observation until he is clinically not intoxicated and can be cleared for discharge. Treatment Plan: Patient is here laceration was anesthetized. The wound was irrigated. The cartilage was approximated sutured using 5-0 Vicryl. 1 simple interrupted suture was placed. Skin was closed using 5-0 Ethilon. Disposition: Disposition pending reevaluation when patient is clinically sober Impression: 1. Mechanical fall with injury initial encounter 2. Closed head injury 3. Acute alcohol intoxication 4. Complex 3.5 cm ear laceration with involvement of cartilage This note was generated with [employer] dictation software. It may contain incorrect words, spelling, and punctuation that were not noted in review of the chart prior to signing ED Disposition - Plan for ED Patient: Disposition: Home or Assisted Living Chief Complaint: Laceration Instructions: ED Laceration All, ED Head Injury Closed, ED Alcohol Intoxication Referrals: Jose Enrique Shoemaker MD [Primary Care Provider] - 7 Days for suture removal
[2018-01-05 22:05] VITALS: BP 121/80; PULSE 105; RESP 17; O2SAT 96
--- NOTE | 2018-01-05 22:23 | ED.RN ---
PT REMOVED MONITOR AND GOT OUT OF BED. THIS RN REDIRECTED PT, CHANGED BEDDING AND GOWN AND ASSISTED PT BACK INTO BED. PT REPORTS PAIN AND WAS GIVEN TYLENOL. PT EDUCATED ON TYLENOL. PT INFORMED THAT HE HAS THREE HOURS TO BE PHYSICALLY CLEARED FROM C-COLLAR WHEN HE IS LEGALLY SOBER. PT BECAME TEARFUL STATING, I HAVE NO WHERE TO GO. I HAVE NOT BEEN SLEEPING, AND I HAVE BEEN MORE DEPRESSED. THIS RN ASKS PT IF HE IS SUICIDAL, WHICH PT DENIES AT THIS TIME. CHARGE NURSE MOOK AND DR. RILEY INFORMED OF PT PLAN OF CARE AT THIS TIME. PT MOVED TO ROOM 4 TO BE CLOSE TO THE NURSES STATION FOR MONITORING. WILL CONTINUE TO MONITOR.
[2018-01-06] VITALS: BP 162/89; PULSE 107; RESP 16
--- NOTE | 2018-01-06 00:58 | ED.RN ---
PT REMOVED C-COLLAR AND PT WAS ADVISED BEFORE HE FELL ASLEEP TO KEEP C-COLLAR ON AT ALL TIMES. PT REPLY I CAN'T SLEEP WITH IT ON PT CURRENTLY RESTING QUIETLY IN BED WITH EYES CLOSED AND SNORING.
[2018-01-06 02:51] VITALS: PULSE 67; RESP 18; O2SAT 94
[2018-01-06 03:58] VITALS: BP 138/76; PULSE 69; RESP 18; O2SAT 97
== END 2018-01-06 04:00 | disposition home or self-care (01) ==
PROVIDERS: Emergency Provider Emergency Medicine; Family Provider Family Medicine; PCP Family Medicine
DX: S01.311A Laceration without foreign body of right ear, initial encounter (principal); S09.90XA Unspecified injury of head, initial encounter; F10.129 Alcohol abuse with intoxication, unspecified; Y90.9 Presence of alcohol in blood, level not specified; W10.9XXA Fall (on) (from) unspecified stairs and steps, initial encounter; Y93.9 Activity, unspecified; Y92.9 Unspecified place or not applicable; Y99.9 Unspecified external cause status; I44.0 Atrioventricular block, first degree
CPT/HCPCS: 12013; 70450; 72125; 80053; 80320; 85025; 85610; 90715; 93005; 99285; A4216; G0480

== ENCOUNTER 2018-01-06 11:20 | Emergency (ER) | payer MEDICAID, SELFPAY ==
[2018-01-06] VITALS (10 sets, daily range): BP systolic 99–130; BP diastolic 66–99; PULSE 82–107; RESP 14–24; TEMP 36.6; O2SAT 94–97; BMI 26.8
[2018-01-06 11:56] LABS: Absolute Lymphocyte Count 2.16 X10^3/ul (0.83-4.51); Absolute Neutrophil Count 4.6 X10^3/uL (2.0-7.7); Basophil# 0.04 X10^3/uL; Basophil% 0.5 % (0-1); Eosinophil# 0.05 X10^3/uL; Eosinophils% 0.6 % (0-5); Hematocrit 46.3 % (40-54); Hemoglobin 15.3 g/dl (13.0-16.5); Lymphocyte # 2.16 X10^3/ul (4.0); Lymphocyte % 26.2 % (19-41); Mean Corpuscular Hgb 31.9 pg (27.0-32.0); Mean Corpuscular Volume 96.5 fL (80-94); Mean Platelet Vol. 10.3 fl (6.2-12.0); Monocyte# 1.38 X10^3/uL; Monocyte% 16.8 % (0-10); Neutrophil # 4.58 X10^3/uL (2.7-7.7); Neutrophil % 55.7 % (47-70); POSITIVE COUNT NO; POSITIVE DIFFERENTIAL NO; POSITIVE MORPHOLOGY NO; Platelet Count 244 K/mm3 (150-450); RBC Distribution Width CV 16.6 % (11.6-14.6); RBC Distribution Width SD 57.5 fl (35.1-43.9); White Blood Count 8.2 K/mm3 (4.4-11.0)
[2018-01-06 11:59] LABS: Anion Gap 8 (5-15); BUN 8 mg/dL (7-18); BUN/Creat Ratio 10.2 RATIO (10-20); Calcium,Total 8.9 mg/dL (8.5-10.1); Chloride 103 mmol/L (98-107); Creatinine, Serum 0.79 mg/dL (0.70-1.30); EST Glomerular Filtration Rate 113 mL/min (>60); Est Glom Filt Rate - Afr Amer 136 mL/min (>60); Estimated Creatinine Clearance 124.44 ml/min; Glucose 203 mg/dL (74-106); Potassium 3.7 mmol/L (3.5-5.1); Sodium Level 141 mmol/L (136-145)
--- NOTE | 2018-01-06 12:16 | ED.RN ---
SI precautions initiated. Sitter at bedside.
[2018-01-06 12:21] LABS: Amphetamine Urine VISTA NEGATIVE (<1000 ng/mL); Barbiturate Urine VISTA NEGATIVE (< 200 ng/mL); Benzodiazepine Urine VISTA POSITIVE (< 200 ng/mL); Cocaine Urine VISTA NEGATIVE (< 300 ng/mL); Ecstacy Urine VISTA NEGATIVE (< 500 ng/mL); Methadone Urine VISTA NEGATIVE (< 300 ng/mL); PCP Urine VISTA NEGATIVE (< 25 ng/mL); THC Urine VISTA NEGATIVE (< 50 ng/mL); Vista UDS pH Range 6
--- NOTE | 2018-01-06 12:30 | ED.RN ---
etoh [address] called from the lab. dr dupont aware
--- NOTE | 2018-01-06 17:10 | ED.DCSUM_ITS ---
- ER Visit Summary Date of Service: 01/06/18 Chief Complaint: Suicidal ideation History of Present Illness: The patient is a 47 M presenting with suicidal ideation. Patient was discharged from the ER several hours ago. He has been drinking alcohol since he left. He returns stating that he is suicidal. He states he wants to jump in front of a car. He states he does not want to live anymore. He has a history of alcohol abuse. He was recently admitted to the [facility]. Physical Examination: Vitals are stable. Patient is afebrile. Alert no acute distress. HEENT exam is unremarkable. Neck is supple. Lungs are clear and equal bilaterally. Heart is regular rate and rhythm. Abdomen is soft nontender nondistended. Extremities are unremarkable. Skin is warm and dry. No focal neurologic deficit. Alcohol intoxication, suicidal ideation Remainder of exam is unremarkable. Emergency Department Course and Treatment: Alcohol level 333, tox positive for benzos. CBC and chemistries unremarkable. Patient will be observed until sober. He will be seen by the counseling center for evaluation. Disposition: Per counseling center Impression: Suicidal ideation, alcohol intoxication This note was generated with [employer] dictation software. It may contain incorrect words, spelling, and punctuation that were not noted in review of the chart prior to signing ED Disposition - Plan for ED Patient: Chief Complaint: Suicidal Referrals: Jose Enrique Shoemaker MD [Primary Care Provider] -
--- NOTE | 2018-01-06 20:55 | ED.RN ---
PT IS LYING ON HIS BACK AND PULSE OX READING 89% ON R.A. PT HX OF SLEEP APNEA AND OXYGEN 2LNC APPLIED PULSE OX INCREASED TO 94%SITTER AT BEDSIDE.
[2018-01-06] MEDS: LORazepam 1 MG Tablet PO (23:03)
[2018-01-07] VITALS: BP 119/88; PULSE 94; RESP 20; O2SAT 98
--- NOTE | 2018-01-07 01:03 | ED.RN ---
PER COUNSELING CENTER WORKER AND DR ALMANZAR, PT IS NO LONGER SUICIDAL. SITTER DISCONTINUED
[2018-01-07 01:15] VITALS: BP 141/102; PULSE 91; RESP 22; O2SAT 96
--- NOTE | 2018-01-07 01:24 | ED.DCSUM_ITS ---
- ER Visit Summary Date of Service: 01/07/18 Addendum: Patient remained stable here. Given 1 dose of Ativan. Seen by crisis. Patient no longer suicidal upon sobriety. Requesting detox. [facility] will not take him as he was just discharged. He will be discharged to the [facility] given a short course of Ativan to prevent him from going into withdrawal. He will hold off on using alcohol and follow-up as an outpatient with 180 This note was generated with [employer] dictation software. It may contain incorrect words, spelling, and punctuation that were not noted in review of the chart prior to signing ED Disposition - Plan for ED Patient: Chief Complaint: Suicidal Referrals: Jose Enrique Shoemaker MD [Primary Care Provider] -
--- NOTE | 2018-01-07 01:24 | ED.DEP ---
ED Disposition - Plan for ED Patient: Disposition: Home or Assisted Living Chief Complaint: Suicidal Diagnosis: Alcohol abuse Prescriptions: Lorazepam [Ativan] 1 mg PO TID #10 tab Referrals: Jose Enrique Shoemaker MD [Primary Care Provider] -
[2018-01-07 01:38] VITALS: BP 130/97; PULSE 86; RESP 15; O2SAT 96
== END 2018-01-07 01:39 | disposition home or self-care (01) ==
PROVIDERS: Emergency Medicine; Emergency Provider Emergency Medicine; Family Provider Family Medicine; PCP Family Medicine
DX: R45.851 Suicidal ideations (principal); F10.129 Alcohol abuse with intoxication, unspecified; Y90.8 Blood alcohol level of 240 mg/100 ml or more
CPT/HCPCS: 80048; 80307; 80320; 85025; 99285; G0480

== ENCOUNTER 2018-01-07 12:56 | Emergency (ER) | payer MEDICAID, SELFPAY ==
[2018-01-07 12:59] VITALS: BP 155/95; PULSE 80; RESP 14; TEMP 36.6; O2SAT 98; BMI 30.7
--- NOTE | 2018-01-07 13:42 | ED.RN ---
PT DENIES SUICIDAL IDEATION. PT STATES HE WANTED TO DETOX FOR ADMISSION TO [facility]. PT LABS AND URINE OBTAINED AND PT GIVEN FOOD. PT ARRIVES COOPERATIVE.
--- NOTE | 2018-01-07 13:59 | EKG12_ITS ---
Test Reason : MHC Blood Pressure : / mmHG Vent. Rate : 086 BPM Atrial Rate : 086 BPM P-R Int : 228 ms QRS Dur : 098 ms QT Int : 394 ms P-R-T Axes : 053 -50 045 degrees QTc Int : 471 ms Sinus rhythm with 1st degree A-V block Possible Left atrial enlargement Left anterior fascicular block Abnormal ECG Confirmed by ANGELINA TRAMMELL, FIORELLA ([id number]), editorial manager RACHEL CALDERÓN ([id number]) on 01/09/2018 3:32:44 PM Referred By: BIPIN Confirmed By:FIORELLA ALFARO MD
[2018-01-07] MEDS: LORazepam 1 MG Tablet PO (14:25)
[2018-01-07 14:29] LABS: Absolute Lymphocyte Count 2.15 X10^3/ul (0.83-4.51); Absolute Neutrophil Count 3.4 X10^3/uL (2.0-7.7); Basophil# 0.03 X10^3/uL; Basophil% 0.4 % (0-1); Eosinophil# 0.03 X10^3/uL; Eosinophils% 0.4 % (0-5); Hematocrit 45.1 % (40-54); Hemoglobin 15.1 g/dl (13.0-16.5); Lymphocyte # 2.15 X10^3/ul (4.0); Mean Corp Hgb Conc 33.5 g/gl (32-36); Mean Corpuscular Hgb 31.9 pg (27.0-32.0); Mean Corpuscular Volume 95.1 fL (80-94); Mean Platelet Vol. 10.2 fl (6.2-12.0); Monocyte# 1.27 X10^3/uL; Monocyte% 18.3 % (0-10); Neutrophil # 3.44 X10^3/uL (2.7-7.7); Neutrophil % 49.8 % (47-70); POSITIVE COUNT NO; POSITIVE DIFFERENTIAL NO; POSITIVE MORPHOLOGY NO; Platelet Count 268 K/mm3 (150-450); RBC Distribution Width CV 16.1 % (11.6-14.6); RBC Distribution Width SD 54.7 fl (35.1-43.9); Red Blood Count 4.74 M/mm3 (4.6-6.2); White Blood Count 6.9 K/mm3 (4.4-11.0)
[2018-01-07 14:35] LABS: Amphetamine Urine VISTA NEGATIVE (<1000 ng/mL); Barbiturate Urine VISTA NEGATIVE (< 200 ng/mL); Benzodiazepine Urine VISTA POSITIVE (< 200 ng/mL); Cocaine Urine VISTA NEGATIVE (< 300 ng/mL); Ecstacy Urine VISTA NEGATIVE (< 500 ng/mL); Methadone Urine VISTA NEGATIVE (< 300 ng/mL); PCP Urine VISTA NEGATIVE (< 25 ng/mL); THC Urine VISTA NEGATIVE (< 50 ng/mL); Vista UDS pH Range 6
[2018-01-07 14:36] LABS: International Normalized Ratio 1.1; Prothrombin Time (Protime)PT. 13.7 SECONDS (11.7-14.9)
[2018-01-07 14:37] LABS: ALB/GLOB Ratio 0.8 RATIO (0.9-2.4); AST(SGOT) 25 U/L (15-37); Alanine Aminotransfer ALT/SGPT 60 U/L (16-61); Albumin, Serum 3.5 g/dL (3.2-5.0); Alkaline Phosphatase 99 U/L (45-117); Anion Gap 12 (5-15); BUN 8 mg/dL (7-18); BUN/Creat Ratio 9.3 RATIO (10-20); Calcium,Total 8.9 mg/dL (8.5-10.1); Chloride 99 mmol/L (98-107); Creatinine, Serum 0.86 mg/dL (0.70-1.30); EST Glomerular Filtration Rate 101 mL/min (>60); Est Glom Filt Rate - Afr Amer 123 mL/min (>60); Estimated Creatinine Clearance 114.31 ml/min; Globulin 4.2 g/dL (2.2-4.2); Glucose 337 mg/dL (74-106); Potassium 3.5 mmol/L (3.5-5.1); Protein, Total 7.7 g/dL (6.4-8.2); Sodium Level 138 mmol/L (136-145)
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
[2018-01-07 20:54] VITALS: BP 148/60; PULSE 80; RESP 14; O2SAT 98
--- NOTE | 2018-01-07 22:43 | ED.RN ---
CALLED CRISIS TO SEE THIS PT, VICKI IS [employer]
[2018-01-08 00:13] VITALS: BP 140/98; PULSE 96; RESP 18; O2SAT 94
[2018-01-08] MEDS: LORazepam 1 MG Tablet PO ×3 (00:54→12:33)
[2018-01-08 03:54] VITALS: BP 154/103; PULSE 82; RESP 15; O2SAT 99
[2018-01-08 05:39] LABS: Alcohol, Blood (Medical)-Serum < 3.0 mg/dL
--- NOTE | 2018-01-08 07:56 | ED.RN ---
Pt awake, alert and cooperative at start of shift, sitter exchange.
[2018-01-08 08:28] VITALS: BP 143/107; PULSE 94; RESP 18; O2SAT 92
[2018-01-08 08:41] LABS: Bedside Glucose 306 mg/dL (70-110)
[2018-01-08] MEDS: FLUoxetine 20 MG Capsule 60 MG PO (09:09)
[2018-01-08] MEDS: Pantoprazole Sodium 20 MG Tablet PO (09:09)
[2018-01-08] MEDS: hydroCHLOROthiazide 25 MG Tablet PO (09:10)
[2018-01-08] MEDS: Lisinopril 20 MG Tablet PO (09:10)
[2018-01-08] MEDS: amLODIPine 5 MG Tablet PO (09:10)
[2018-01-08] MEDS: Insulin Lispro 100 UNIT/ML INSULN.PEN 20 UNIT SC (09:11)
[2018-01-08 10:36] LABS: Bedside Glucose 197 mg/dL (70-110)
--- NOTE | 2018-01-08 10:42 | NURSING ---
[facility] FOR RN
[2018-01-08 11:24] VITALS: BP 150/98; PULSE 94; RESP 16; O2SAT 96
== END 2018-01-08 13:19 ==
PROVIDERS: Emergency Medicine; Emergency Provider Emergency Medicine; Family Provider Family Medicine; PCP Family Medicine
DX: F10.239 Alcohol dependence with withdrawal, unspecified (principal); F10.229 Alcohol dependence with intoxication, unspecified; Y90.8 Blood alcohol level of 240 mg/100 ml or more; R45.851 Suicidal ideations; I44.0 Atrioventricular block, first degree; I10 Essential (primary) hypertension; E78.5 Hyperlipidemia, unspecified; E11.9 Type 2 diabetes mellitus without complications; G89.4 Chronic pain syndrome; F41.9 Anxiety disorder, unspecified; F32.9 Major depressive disorder, single episode, unspecified; Z59.0 Homelessness
CPT/HCPCS: 80053; 80307; 80320; 82962; 85025; 85610; 93005; 99283; G0480

== ENCOUNTER 2018-01-18 17:05 | Emergency (ER) | payer MEDICAID, SELFPAY ==
[2018-01-18 17:06] VITALS: BP 117/72; PULSE 106; RESP 18; TEMP 37.1; O2SAT 96; BMI 29.9
[2018-01-18] MEDS: Ondansetron 4 MG/2 ML Vial IV (18:22)
[2018-01-18] MEDS: 0.9% Normal Saline 1,000 ML 999 ML IV (18:22)
--- NOTE | 2018-01-18 18:59 | ED.VISSUMM ---
- ER Visit Summary Date of Service: 01/18/18 Chief Complaint: Alcohol intoxication History of Present Illness: The patient is a 47 M presenting requesting alcohol detox. Patient is requesting 30-day inpatient alcohol treatment. He has recently been admitted to [facility]. Advised by nursing staff that [facility] is aware of the patient and they will not readmit him at this time. He complains of nausea with no vomiting. He drank 1/5 of vodka just prior to arrival. Physical Examination: Vitals are stable. Patient is afebrile. Alert no acute distress. HEENT exam is unremarkable. Neck is supple. Lungs are clear and equal bilaterally. Heart is regular rate and rhythm. Abdomen is soft nontender nondistended. Extremities are unremarkable. Skin is warm and dry. No focal neurologic deficit. Remainder of exam is unremarkable. ED Course and Treatment: Patient was given IV fluids and Zofran. He was observed in the ED. He was given a meal. He is able to ambulate with a steady gait. He is advised to follow-up at 180. Advised return to ED for worsening complaints. Disposition: Discharge home Impression: Alcohol intoxication This note was generated with [employer] dictation software. It may contain incorrect words, spelling, and punctuation that were not noted in review of the chart prior to signing ED Disposition - Plan for ED Patient: Disposition: Home or Assisted Living Chief Complaint: Substance Abuse Instructions: ED Alcohol Abuse Referrals: Jose Enrique Shoemaker MD [Primary Care Provider] -
--- NOTE | 2018-01-18 19:01 | ED.DEP ---
ED Disposition - Plan for ED Patient: Chief Complaint: Substance Abuse Instructions: ED Alcohol Abuse Referrals: Jose Enrique Shoemaker MD [Primary Care Provider] -
[2018-01-18 20:01] VITALS: BP 111/70; PULSE 93; RESP 16; O2SAT 93
[2018-01-18 20:14] VITALS: BP 111/70; PULSE 93; RESP 16; O2SAT 93
== END 2018-01-18 20:16 | disposition home or self-care (01) ==
PROVIDERS: Emergency Provider Emergency Medicine; Family Provider Family Medicine; PCP Family Medicine
DX: F10.129 Alcohol abuse with intoxication, unspecified (principal); Y90.9 Presence of alcohol in blood, level not specified; E11.9 Type 2 diabetes mellitus without complications; I10 Essential (primary) hypertension; E78.00 Pure hypercholesterolemia, unspecified; Z72.0 Tobacco use; Z79.4 Long term (current) use of insulin
CPT/HCPCS: 96361; 96374; 99283; J7030; J2405

== ENCOUNTER 2018-01-21 10:56 | Emergency (ER) | payer MEDICAID, SELFPAY ==
[2018-01-21 10:57] VITALS: BP 161/110; PULSE 121; RESP 18; TEMP 36.6; O2SAT 95; BMI 29.4
--- NOTE | 2018-01-21 12:01 | ED.DCSUM_ITS ---
- ER Visit Summary Date of Service: 01/21/18 Chief Complaint: Alcoholism History of Present Illness: The patient is a 47 M who was pulled over by the police today given a breathalyzer and was assisted to the emergency department after he requested help with his alcoholism. He has had numerous visits to the emergency department this month including an admission. He states that since his girlfriend broke up 3 weeks ago. He states that prior to that he was only drinking maybe 1-2 pints a week. Since then he has been doing 4 to 5-6 pints a day. States he has not had any sleep for 6 days. This information seems to be contrary to prior statements/medical documentation. His plan is to go to [place] to a detox center where his brother lives. He has a history of diabetes last checked his blood sugar yesterday. Physical Examination: Afebrile vital signs are stable (initial heart rate 121 in triage on my examination he is 95) Gen: Well-nourished well-developed Head: Normocephalic atraumatic Eyes: Perrl EOMI ENT: TMs clear no rhinorrhea moist mucous membranes Neck: Supple no lymphadenopathy no JVD nontender CVS: Regular rate rhythm no murmurs normal S1-S2 Respiratory: No distress clear to auscultation bilaterally chest nontender Abdomen: Soft nontender nondistended normal bowel sounds no masses Back: Nontender Extremity: Nontender no edema Skin: Normal color no rash Neuro: alert orientated ?3 CN II-XII intact normal strength sensation reflexes gait cerebellar Psych: Tearful at times. No suicidal homicidal ideation Test Results: Blood sugar 171 Emergency Department Course and Treatment: Patient is not under arrest. He has plan for detox. He is not appear to be in acute alcohol withdrawal. He can be discharged. Impression: 1. Alcoholism This note was generated with [employer] dictation software. It may contain incorrect words, spelling, and punctuation that were not noted in review of the chart prior to signing ED Disposition - Plan for ED Patient: Disposition: Home or Assisted Living Chief Complaint: ETOH Intox Instructions: ED Alcohol Abuse Referrals: Jose Enrique Shoemaker MD [Primary Care Provider] - As soon as possible EIGHTY,ONE [STAFF PHYSICIAN] -
[2018-01-21 12:05] LABS: Bedside Glucose 171 mg/dL (70-110)
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
--- NOTE | 2018-01-21 12:45 | ED.RN ---
PT REFUSED DISCHARGE VITAL SIGNS.
== END 2018-01-21 12:45 | disposition home or self-care (01) ==
PROVIDERS: Emergency Provider Emergency Medicine; Family Provider Family Medicine; PCP Family Medicine
DX: F10.20 Alcohol dependence, uncomplicated (principal); Y90.9 Presence of alcohol in blood, level not specified; F32.9 Major depressive disorder, single episode, unspecified; F41.9 Anxiety disorder, unspecified; E11.9 Type 2 diabetes mellitus without complications; I10 Essential (primary) hypertension; Z72.0 Tobacco use
CPT/HCPCS: 82962; 99282

== ENCOUNTER → 2018-06-16 08:13 | Outpatient (CLI) | payer MEDICAID, SELFPAY ==
[2018-06-02 10:37] VITALS: BMI 29.4
--- NOTE | 2018-06-16 08:16 | RAD_ITS ---
STUDY: X-RAY - RIGHT KNEE REASON FOR EXAM: Male, 48 years old. Pain TECHNIQUE: 3 view(s) of the knee. COMPARISON: None. FINDINGS: The quadriceps and patellar tendons are normal. There is no knee joint effusion. There are no acute fractures or dislocations. Small spurs from the cuneiform or condyles are seen about the tricompartments are well-maintained.. RAD/Knee 3 Views IMPRESSION: Mild osteoarthritis of the knee. No fracture Electronically Signed: Keith Liz MD at 5:08 EDT Tel , Service support ,
--- NOTE | 2018-06-16 08:16 | RAD_ITS ---
STUDY: X-RAY - LUMBAR SPINE REASON FOR EXAM: Male, 48 years old. Back pain TECHNIQUE: 6 view(s) of the lumbar spine were obtained. COMPARISON: None FINDINGS: Disc diseases at L4-5 and L5-S1. These are demonstrated by narrowing of the disc spaces. There are no acute fractures. There is normal alignment and curvature of the lumbosacral spine. The facet joints are normal RAD/L/S Spine Min 4 Views IMPRESSION: . Intervertebral osteochondrosis at L4-5 and L5-S1. No fracture Electronically Signed: Keith Liz MD at 5:09 EDT Tel , Service support ,
--- NOTE | 2018-06-16 08:16 | RAD_ITS ---
STUDY: X-RAY - RIGHT HIP REASON FOR EXAM: Male, 48 years old. Hip pain TECHNIQUE: 2 views of the hip. COMPARISON: None. FINDINGS: Normal femoral head, neck, intertrochanteric region and visualized proximal femur. Normal acetabulum. Normal hip joint. Normal visualized superior and inferior pubic rami and ischial tuberosities. RAD/HIP, UNI W/ Pelvis 2-3 Views IMPRESSION: Normal x-ray examination of the hip. No fracture. No osteoarthritis. Electronically Signed: Keith Liz MD at 5:03 EDT Tel , Service support ,
== END ==
PROVIDERS: Family Provider Internal Medicine; PCP Internal Medicine; Referring Provider Internal Medicine; Visit Provider Internal Medicine
DX: M19.90 Unspecified osteoarthritis, unspecified site (principal); M54.9 Dorsalgia, unspecified; G89.29 Other chronic pain
CPT/HCPCS: 72110; 73502; 73562

== ENCOUNTER → 2018-06-26 16:11 | Outpatient (CLI) | payer MEDICAID, SELFPAY ==
[2018-06-02 10:37] VITALS: BMI 29.4
[2018-06-26 18:28] LABS: Amphetamine Urine VISTA POSITIVE (<1000 ng/mL); Barbiturate Urine VISTA NEGATIVE (< 200 ng/mL); Benzodiazepine Urine VISTA NEGATIVE (< 200 ng/mL); Cocaine Urine VISTA NEGATIVE (< 300 ng/mL); Ecstacy Urine VISTA NEGATIVE (< 500 ng/mL); Methadone Urine VISTA NEGATIVE (< 300 ng/mL); PCP Urine VISTA NEGATIVE (< 25 ng/mL); THC Urine VISTA NEGATIVE (< 50 ng/mL); Vista UDS pH Range 5
== END ==
PROVIDERS: Family Provider Internal Medicine; PCP Internal Medicine; Referring Provider Anesthesiology Pain Medicine; Visit Provider Anesthesiology Pain Medicine
DX: F11.20 Opioid dependence, uncomplicated (principal)
CPT/HCPCS: 80307

== ENCOUNTER → 2018-06-27 19:53 | Outpatient (CLI) | payer MEDICAID, SELFPAY ==
[2018-06-02 10:37] VITALS: BMI 29.4
== END ==
PROVIDERS: Family Provider Internal Medicine; PCP Internal Medicine; Referring Provider Internal Medicine; Visit Provider Internal Medicine
DX: G47.33 Obstructive sleep apnea (adult) (pediatric) (principal); M54.9 Dorsalgia, unspecified; M79.606 Pain in leg, unspecified
CPT/HCPCS: 95811; 97161

== ENCOUNTER → 2018-06-28 05:37 | Outpatient (CLI) | payer MEDICAID, SELFPAY ==
[2018-06-02 10:37] VITALS: BMI 29.4
[2018-06-28 06:34] LABS: ALB/GLOB Ratio 0.9 RATIO (0.9-2.4); AST(SGOT) 24 U/L (15-37); Alanine Aminotransfer ALT/SGPT 39 U/L (16-61); Albumin, Serum 3.3 g/dL (3.2-5.0); Alkaline Phosphatase 48 U/L (45-117); Anion Gap 6 (5-15); BUN 16 mg/dL (7-18); BUN/Creat Ratio 14.8 RATIO (10-20); Calcium,Total 8.7 mg/dL (8.5-10.1); Chloride 105 mmol/L (98-107); Cholesterol 174 mg/dL (200); Creatinine, Serum 1.08 mg/dL (0.70-1.30); EST Glomerular Filtration Rate 78 mL/min (>60); Est Glom Filt Rate - Afr Amer 94 mL/min (>60); Globulin 3.6 g/dL (2.2-4.2); Glucose 101 mg/dL (74-106); High Density Lipoprotein 30 mg/dL; Potassium 4.2 mmol/L (3.5-5.1); Protein, Total 6.9 g/dL (6.4-8.2); Sodium Level 143 mmol/L (136-145); Triglycerides 188 mg/dL; Very Low Density Lipoprotein 38 mg/dL (5-40)
[2018-06-28 07:04] LABS: Absolute Neutrophil Count 3.8 X10^3/uL (2.0-7.7); Basophil# 0.14 X10^3/uL; Basophil% 1.2 % (0-1); Eosinophil# 0.76 X10^3/uL; Eosinophils% 6.7 % (0-5); Hematocrit 40.7 % (40-54); Hemoglobin 13.1 g/dl (13.0-16.5); Lymphocyte % 44.1 % (19-41); Mean Corp Hgb Conc 32.2 g/gl (32-36); Mean Corpuscular Hgb 29.1 pg (27.0-32.0); Mean Corpuscular Volume 90.4 fL (80-94); Mean Platelet Vol. 9.3 fl (6.2-12.0); Monocyte# 1.61 X10^3/uL; Monocyte% 14.2 % (0-10); Neutrophil # 3.76 X10^3/uL (2.7-7.7); Neutrophil % 33.3 % (47-70); Platelet Count 605 K/mm3 (150-450); RBC Distribution Width CV 14.3 % (11.6-14.6); RBC Distribution Width SD 47.6 fl (35.1-43.9); White Blood Count 11.3 K/mm3 (4.4-11.0)
[2018-06-28 07:05] LABS: Differential Indicated SCAN CRITERIA MET; POSITIVE COUNT NO; POSITIVE DIFFERENTIAL YES; POSITIVE MORPHOLOGY NO
[2018-06-28 07:46] LABS: Platelet Morphology LARGE
[2018-06-28 09:47] LABS: Microalbumin,Random Urine 5.1 mg/L (NO RANGE EST.); Microalbumin:Creatinine Ratio 3.7 mg/g CRE (<30 mg/g CRE)
[2018-06-28 13:53] LABS: Pathologist Review Reviewed
== END ==
PROVIDERS: Family Provider Internal Medicine; PCP Internal Medicine; Referring Provider Internal Medicine; Visit Provider Internal Medicine
DX: E11.9 Type 2 diabetes mellitus without complications (principal); E78.5 Hyperlipidemia, unspecified; I10 Essential (primary) hypertension
CPT/HCPCS: 36415; 80053; 80061; 82043; 82570; 85025

== ENCOUNTER 2018-07-06 17:22 | Emergency (ER) | payer MEDICAID, SELFPAY ==
[2018-06-30 10:18] VITALS: BMI 29.4
[2018-07-06 17:23] VITALS: BP 151/91; PULSE 99; RESP 20; TEMP 36.3; O2SAT 93; BMI 38.2
--- NOTE | 2018-07-06 17:33 | ED.DCSUM_ITS ---
- ER Visit Summary Date of Service: 07/06/18 Chief Complaint: Back pain History of Present Illness: The patient is a 48 M presents to the emergency department with left-sided back pain. Patient states on Tuesday, he had a dull ache in his back. He states it lasted about an hour and then went away. He states it happened again today. He states he was getting up from bed and felt some tightness in his left back and felt like it locked up. The pain does not radiate down his leg. He denies any difficulty urinating. He denies any trouble moving his bowels. He denies any trauma. He states that he called his primary care who sent him in for further evaluation. Physical Examination: Afebrile, vitals unremarkable. Well-appearing male no acute distress. Head is normocephalic, atraumatic. Pupil's equal round reactive, extraocular muscles intact. Neck supple. Heart regular rate and rhythm. Lungs clear, chest nontender. Abdomen soft, nontender, nondistended. No pulsatile mass. Patient has paraspinal tenderness in the lumbar area, but no bony tenderness. Straight leg raise is negative bilaterally. 2+ symmetric lower extremity pulses. 2+ reflexes. No clonus. No weakness of dorsiflexion, plantar flexion, or extensor hallucis longus bilaterally. Test Results: [] Emergency Department Course and Treatment: The patient has no red flag symptoms. He has a normal steady gait. The pulses in his popliteal area are normal. 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 Reflexes were normal. We did obtain a blood sugars the patient states that he did take his insulin but has not eaten. It was 45. He was given orange juice and food. His repeat was 94 and he was feeling markedly improved. I did treat him with antispasmodics and anti-inflammatories. His pain is totally resolved. At this point, I do feel that he is safe for further outpatient workup. I do not suspect that he needs admitted. The patient is comfortable with this plan of care. Treatment Plan: [] Disposition: Discharge Impression: 1. Acute left lumbosacral strain This note was generated with [employer] software. It may contain incorrect words, spelling, and punctuation that were not noted in review of the chart prior to signing ED Disposition - Plan for ED Patient: Instructions: ED Sprain Strain Lumbar Prescriptions: Naproxen [Naprosyn] 500 mg PO BID #14 tab Cyclobenzaprine [Flexeril] 10 mg PO TID PRN #20 tab PRN Reason: Muscle Spasm Referrals: Magdi Sweeney MD [STAFF PHYSICIAN] -
[2018-07-06 17:40] LABS: Bedside Glucose 45 mg/dL (70-110)
--- NOTE | 2018-07-06 17:46 | ED.RN ---
pt blood sugar 45. dr aware. pt drinks oj,coke and peanut butter crackers. iv established
[2018-07-06] MEDS: Morphine 4 MG/ML Syringe IM (17:47)
[2018-07-06] MEDS: Ketorolac 60 MG/2 ML Vial IM (17:47)
[2018-07-06] MEDS: Orphenadrine 60 MG/2 ML Ampul IM (17:48)
[2018-07-06 18:10] LABS: Bedside Glucose 94 mg/dL (70-110)
[2018-07-06 18:28] VITALS: BP 131/87; PULSE 89; RESP 15; O2SAT 98
== END 2018-07-06 18:40 | disposition home or self-care (01) ==
LOC: ED 17:40
PROVIDERS: Emergency Provider Emergency Medicine; Family Provider Internal Medicine; PCP Internal Medicine
DX: S39.012A Strain of muscle, fascia and tendon of lower back, initial encounter (principal); X58.XXXA Exposure to other specified factors, initial encounter; Y93.9 Activity, unspecified; Y92.89 Other specified places as the place of occurrence of the external cause; Y99.9 Unspecified external cause status; E11.9 Type 2 diabetes mellitus without complications; I10 Essential (primary) hypertension; E78.00 Pure hypercholesterolemia, unspecified; Z72.0 Tobacco use
CPT/HCPCS: 82962; 96372; 99282; A4216

== ENCOUNTER → 2018-07-13 10:43 | Outpatient (CLI) | payer MEDICAID, SELFPAY ==
[2018-07-13 08:19] VITALS: BMI 38.2
[2018-07-13 10:46] LABS: Pathologist Comment May follow
[2018-07-13 11:14] LABS: Synovial Fld Polynuclear WBC # 0.046 10^3/ul
[2018-07-13 12:08] LABS: AUTO B FLUID DILUENT BKGD CT WBC <0.1 RBC <0.01 (W<.1,R<.01); Appearance /Synovial Fluid Clear (CLEAR); Color / Synovial Fluid Yellow (Pale Yellow); RBC /Synovial Fluid 42 /mm3 (0); Source / Synovial Fluid R KNEE; Source- Body Fluid SYNOVIAL
[2018-07-13 12:55] LABS: Lymph 47 %; Monocyte /Synovial Fluid 28 %; Neutrophil 3 % (0-25); Other Cell /Synovial Fluid 22 %
[2018-07-14 13:18] LABS: GLUCOSE, SYNOVIAL FLUID 254 mg/dL (.); PROTEIN, SYNOVIAL FLUID 3.2 g/dL (.)
[2018-07-18 12:13] LABS: Pathologist Review Reviewed
== END ==
PROVIDERS: Orthopaedic Surgery; Family Provider Internal Medicine; PCP Internal Medicine; Visit Provider Psychiatry & Neurology Psychiatry
DX: M17.11 Unilateral primary osteoarthritis, right knee (principal)
CPT/HCPCS: 82945; 84157; 87070; 87075; 87205; 89050; 89051; 89060

== ENCOUNTER → 2018-07-14 09:01 | Outpatient (CLI) | payer MEDICAID, SELFPAY ==
[2018-07-13 08:19] VITALS: BMI 38.2
[2018-07-14 12:51] LABS: Absolute Lymphocyte Count 2.56 X10^3/ul (0.83-4.51); Absolute Neutrophil Count 13.6 X10^3/uL (2.0-7.7); Basophil# 0.02 X10^3/uL; Basophil% 0.1 % (0-1); Hematocrit 40.8 % (40-54); Hemoglobin 13.5 g/dl (13.0-16.5); Lymphocyte # 2.56 X10^3/ul (4.0); Lymphocyte % 14.6 % (19-41); Mean Corp Hgb Conc 33.1 g/gl (32-36); Mean Corpuscular Hgb 29.4 pg (27.0-32.0); Mean Corpuscular Volume 88.9 fL (80-94); Mean Platelet Vol. 10.4 fl (6.2-12.0); Monocyte# 1.32 X10^3/uL; Monocyte% 7.5 % (0-10); Neutrophil # 13.56 X10^3/uL (2.7-7.7); Neutrophil % 77.6 % (47-70); Platelet Count 497 K/mm3 (150-450); RBC Distribution Width CV 14.2 % (11.6-14.6); Red Blood Count 4.59 M/mm3 (4.6-6.2); White Blood Count 17.5 K/mm3 (4.4-11.0)
[2018-07-14 12:56] LABS: POSITIVE COUNT NO; POSITIVE DIFFERENTIAL NO; POSITIVE MORPHOLOGY NO
== END ==
LOC: EPLAB 09:02 → BIMLAB 07-17 08:50
PROVIDERS: Family Provider Internal Medicine; PCP Internal Medicine; Visit Provider Nurse Practitioner Family
DX: D47.3 Essential (hemorrhagic) thrombocythemia (principal)
CPT/HCPCS: 36415; 85025

== ENCOUNTER 2018-07-17 14:00 | Outpatient (RCR) | payer MEDICAID, SELFPAY ==
[2018-06-02 10:37] VITALS: BMI 29.4
[2018-06-28 08:54] VITALS: BMI 29.4
== END 2018-07-17 23:59 | disposition home or self-care (01) ==
LOC: DC 14:00
PROVIDERS: Family Provider Internal Medicine; PCP Internal Medicine; Visit Provider Internal Medicine
DX: E66.9 Obesity, unspecified (principal); E11.9 Type 2 diabetes mellitus without complications; Z71.3 Dietary counseling and surveillance
CPT/HCPCS: 97802; 97803; G0108

== ENCOUNTER → 2018-07-24 11:00 | Outpatient (CLI) | payer MEDICAID, SELFPAY ==
[2018-07-18 09:13] VITALS: BMI 37.3
== END ==
PROVIDERS: Family Provider Internal Medicine; PCP Internal Medicine; Visit Provider Nurse Practitioner Acute Care
DX: Z00.00 Encounter for general adult medical examination without abnormal findings (principal)

== ENCOUNTER → 2018-08-04 09:17 | Outpatient (CLI) | payer MEDICAID, SELFPAY ==
[2018-08-04 08:48] VITALS: BMI 38.6
[2018-08-04 12:18] LABS: Absolute Neutrophil Count 4.1 X10^3/uL (2.0-7.7); Basophil# 0.07 X10^3/uL; Basophil% 0.8 % (0-1); Eosinophil# 0.28 X10^3/uL; Eosinophils% 3.1 % (0-5); Hematocrit 40.6 % (40-54); Hemoglobin 13.3 g/dl (13.0-16.5); Lymphocyte % 39.1 % (19-41); Mean Corp Hgb Conc 32.8 g/gl (32-36); Mean Corpuscular Hgb 28.9 pg (27.0-32.0); Mean Corpuscular Volume 88.1 fL (80-94); Mean Platelet Vol. 9.7 fl (6.2-12.0); Monocyte# 1.01 X10^3/uL; Monocyte% 11.3 % (0-10); Neutrophil # 4.06 X10^3/uL (2.7-7.7); Neutrophil % 45.5 % (47-70); Platelet Count 537 K/mm3 (150-450); RBC Distribution Width CV 14.4 % (11.6-14.6); RBC Distribution Width SD 46.3 fl (35.1-43.9); Red Blood Count 4.61 M/mm3 (4.6-6.2); White Blood Count 8.9 K/mm3 (4.4-11.0)
[2018-08-04 12:19] LABS: POSITIVE COUNT NO; POSITIVE DIFFERENTIAL NO; POSITIVE MORPHOLOGY NO
== END ==
PROVIDERS: Family Provider Internal Medicine; PCP Internal Medicine; Visit Provider Internal Medicine
DX: D72.829 Elevated white blood cell count, unspecified (principal)
CPT/HCPCS: 36415; 85025

== ENCOUNTER → 2018-08-10 10:00 | Outpatient (CLI) | payer MEDICAID, SELFPAY ==
[2018-07-18 09:13] VITALS: BMI 37.3
[2018-08-04 08:48] VITALS: BMI 38.6
--- NOTE | 2018-08-10 16:18 | PFTCOMP_ITS ---
COMPLETE PULMONARY FUNCTION TEST INTERPRETATION Brief HPI: Patient is a 48 year old male, currently under the care of myself, who presents to [facility] for complete pulmonary function tests secondary to diagnosis of dyspnea. Respiratory therapist reports good effort and reproducible results. Interpretation: Forced expiration spirometry shows no large airways obstructive ventilatory defect with an FEV1 of 66% predicted. There is no significant bronchodilator response by strict ATS criteria. Spirograms are of good quality and plateau normally. The respiratory flow volume loop shows a normal pattern. Lung volumes by body plethysmography show a decreased total lung capacity at 5.3 L, 75% predicted. All other lung volumes are reduced symmetrically. Diffusion capacity by carbon monoxide is decreased at 70% predicted. The airway resistance is slightly elevated. No previous pulmonary function tests were available for review. Impression: Mild restrictive ventilatory defect with a symmetric reduction diffusing capacity, in a pattern consistent with possible interstitial lung disease.
== END ==
PROVIDERS: Family Provider Internal Medicine; PCP Internal Medicine; Referring Provider Nurse Practitioner Acute Care; Visit Provider Nurse Practitioner Acute Care
DX: R06.02 Shortness of breath (principal)
CPT/HCPCS: 94060; 94726; 94729

== ENCOUNTER → 2018-08-31 | Outpatient (CLI) | payer MEDICAID, SELFPAY ==
[2018-08-11 08:29] VITALS: BMI 38.6
[2018-08-29 09:31] VITALS: BMI 38.9
--- NOTE | 2018-08-31 17:41 | MRI_ITS ---
STUDY: MRI RIGHT KNEE REASON FOR EXAM: Male, 48 years old. Medial knee pain. TECHNIQUE: Standardized fat and water weighted pulse sequences were obtained in all 3 orthogonal planes. COMPARISON: June 16, 2018. FINDINGS: Grade 2 cartilage loss at the patellar apex. Lateral compartment articular cartilage preserved. Medial compartment grade 4 cartilage loss. No acute fracture, dislocation or osseous destruction. Mild reactive bone marrow edema/contusion at the medial compartment (sagittal image 19 series 5). Lateral meniscus intact. Medial meniscus extensive free edge tear with truncation of the meniscal body (coronal image 16 series 7). Chronic low-grade medial collateral ligament complex sprain with superficial edema (coronal image 16 series 7). Moderate volume joint effusion. No popliteal cyst. Mild soft tissue swelling. Thin suprapatellar plica. Normal distal semimembranosus, gracilis and semitendinosus tendons. Normal proximal tibiofibular articulation. Normal lateral collateral (fibular) ligament. Normal popliteus tendon. Normal biceps femoris tendon. Normal anterior cruciate ligament (ACL). Normal posterior cruciate ligament (PCL). Normal medial and lateral patellar retinaculum. Normal quadriceps tendon. Normal patellar tendon. Normal Hoffa's fat pad. MRI/Lower Ext Joint Only (Routine) IMPRESSION: Extensive medial meniscal free edge tear with meniscal truncation Chronic low-grade MCL sprain without tear Medial compartment severe cartilage loss with reactive bone marrow edema Patellar apex mild cartilage loss Moderate volume joint effusion and mild soft tissue swelling Electronically Signed: Bill Go DO at 11:54 EDT Tel , Service support ,
== END | disposition home or self-care (01) ==
PROVIDERS: Family Provider Internal Medicine; PCP Internal Medicine; Referring Provider Orthopaedic Surgery; Visit Provider Orthopaedic Surgery
DX: S83.241A Other tear of medial meniscus, current injury, right knee, initial encounter (principal)
CPT/HCPCS: 73721

== ENCOUNTER 2018-09-06 14:30 | Outpatient (RCR) | payer MEDICAID, SELFPAY ==
[2018-06-02 10:37] VITALS: BMI 29.4
--- NOTE | 2018-07-07 13:33 | HP.PTEVAL ---
Patient's Visit Information OLGA PLASENCIA is a 48 year old M referred to Physical Therapy by Miguel Arteaga MD with a diagnosis of Low back and leg pain. Date of Evaluation: 06/27/18 Physical Therapist: Sam Hansen DPT - Visit Plan Frequency: 2x /Week Duration: 4 Weeks Plan: Start with core stability, BLE strengthening in aquatic setting. - Subjective Findings: Pt. is here today for his initial evaluation with diagnosis of back pain and leg pain. Pt. reports having back pain for 20+ years, but feeling like his pain got worse when he gained wt. after having his mid foot ampuatation last Dec. Pt. is also have R knee pain, it feels like my knee is going to give out on me. Pt. reports intermittent low back pain that worsens with standing and walking. He reports walking off after foot surgery. Pt. also reprots that his R knee pops out of joint, at times. Pt. is able to walk a bit and it relocates. Pt. reports not leaving home except for doctors appointments and grocery stores. He uses motorized cart for mobility in grocery store. Pt. has been seen by his pain management doctor who would like him to start PT with focus on BLE and core stability to reduce stress on lumbar spine and B knees. Pt. is hopeful to reduce symptoms in order to get back to walking with out limitations. Pt. has had lumbar xray showing DDD at lower segments of lumbar spine. - Pain R knee Pain Intensity (Out of 10): 0 Pain Intensity Range: 0, 10 Lumbar spine Pain Intensity (Out of 10): 2 Pain Intensity Range: 10 - Objective POSTURE: Pt. is over wt. He has general flexed posture. Pt. has sway back posture. Pt. has wide KAYODE and has a tendency to wt. shift to L side due to mid foot amputation on R foot. PALPATION: Pt. has increased pain with palpation througout lumbar spine, with palpation of lumbar erector spine and with spring testing. NEURO: Pt. has normal sensation and DTR of bilateral LEs. ROM: Pt. has full knee ROM bilaterally, except lacks 5 deg of TKE on R side. Pt. has tightness noted throughout bilateral HS and hip flexors. LUMBAR SPINE: flexion nil loss NE, ext mod loss NE, SB min loss bilat NE, rotation mod loss to R side increase NE, rotation L- min loss NE. MMT: RLE- knee- ext 4+/5, flexion 4+/5; hip- flexion 4/5, abd 4/5, ext 4/5. LLE- ankle 5 throughout; knee- ext 4+/5, flexion 4+/5; hip- flexion 4/5, adb 4/5, ext 4/5. Core strength- poor. GAIT: Pt. ambulates with decreased step length and flexed posture. Pt. has increased KAYODE in stance. STAIRS: Pt. negotiates with step to pattern - Goals Goal 1:: Pt. to be I with HEP. Goal Time Frame: 4-6 Weeks Goal 2:: Pt. to have increased core and BLE strength increased by 1/2 grade of all effected musculature. Goal Time Frame: 4-6 Weeks Goal 3:: Pt. to ambulate unlimited distances with 0-2/10 pain. Goal Time Frame: 4-6 Weeks Goal 4:: Pt. to sleep throughout the night without increase in symptoms. Goal Time Frame: 4-6 Weeks Goal 5:: Pt. to complete all ADLs and IADLs with 0-2/10 pain in R leg and lumbar spine. Goal Time Frame: 4-6 Weeks - Rehabilitation Potential Physical Therapy Diagnosis: Pt. has signs and symptoms consistent with low back and leg pain. Pt. reports that his R knee locks on him which sounds more joint mechanical, but did not have any signs of that. Pt. had increased lowback pain with all movements and palaption. Pt. would benefit from PT to increase core stability and lumbar ROM in order to reduce stress applied to R leg and lumbar spine with all mobility. Rehabilitation Potential: Fair - Anticipated Interventions Patient/Client Instruction: Educate patient on: Condition, Plan of Care, Risk Factors, Benefits of Fitness Program For the Purpose of:: To improve decision making, To facilitate caregiver knowledge, To improve self management, To prevent re-injury, To improve ability to perform tasks related to life management, To improve tolerance to ADL's Therapeutic Exercise to Include: Strength training, Power training, Body mechanics, Postural training, Flexibilty training, In an aquatic setting, Passive ROM, Active ROM, Dynamic Lumbar Stabilization, Hilda Exercises For the Purpose of:: To decrease pain, To increase ROM, To improve nutrient delivery to tissue, To increase oxygenation perfusion, To improve muscle performance and motor function, To improve ability to perform ADL's, To increase tolerance to activity/condition/position, To improve performance and independence with ADL's, To improve health of tissue, To increase flexibility/ROM Thank you for the opportunity to evaluate your patient. For Medicare and Medicare HMO plans, please review the plan of care and approve it. It will need to be FAXED BACK to us at [phone] for Medicare purposes. For Medicare only, by signing this I certify the plan of care. Please let me know if there are questions or concerns regarding this plan of care. Physician Signature: Date:
--- NOTE | 2018-08-07 10:50 | HP.PTREVAL_ITS ---
Miguel Arteaga MD, It has been my pleasure to treat OLGA PLASENCIA over the last 9 visits for Low back and leg pain. Please see the progress note below for an update on the physical therapy plan of care! Subjective: Pt. reports my back still bothers me a lot and my rigth knee as well. He reports having 1-2 hours of relief with pool therapy, but symptoms do come back. Pt. did have appointment with ortho who thinks he may have a degenerative meniscal tear. Objective/Function: Lumbar ROM: flexion mod loss increase NW, ext min/mod loss increase nW, SB min loss NE, rotation min loss NE. R knee ROM- 0-5-100deg increased pain at endrange of motion. Pt. had positive Deneen and disco test of R knee this date. Core strength- poor+. RLE- ankle 5/5 throughout; knee- ext 4/5, flexion 4/5; hip- flexon 4/5, abd 4/5, ext 4/5. GAIT: Pt. ambulates with antalgic pattern during R stance phase. Pt. has slight flexion with R lateral lean. Pt. reprots increased R knee and low back pain during gait, reduces during sitting Plan Plan: Pt. would benefit from PT in aquatic setting with focus on core strenght, BLE stretngthening, priogressing to functional strengthening as tolerated. Add in postural control/awareness. Progress HEP with supine neutral spine core stability exercises. Goals Goal 1:: Pt. to be I with HEP. Goal Time Frame: 4-6 Weeks Goal Progress: Progressing Goal 2:: Pt. to have increased core and BLE strength increased by 1/2 grade of all effected musculature. Goal Time Frame: 4-6 Weeks Goal Progress: Progressing Goal 3:: Pt. to ambulate unlimited distances with 0-2/10 pain. Goal Time Frame: 4-6 Weeks Goal Progress: Progressing Goal 4:: Pt. to sleep throughout the night without increase in symptoms. Goal Time Frame: 4-6 Weeks Goal Progress: Progressing Goal 5:: Pt. to complete all ADLs and IADLs with 0-2/10 pain in R leg and lumbar spine. Goal Time Frame: 4-6 Weeks Goal Progress: Progressing Anticipated Interventions Patient/Client Instruction: Educate patient on: Condition, Plan of Care, Risk Factors, Benefits of Fitness Program For the Purpose of:: To improve decision making, To facilitate caregiver knowledge, To improve self management, To prevent re-injury, To improve ability to perform tasks related to life management, To improve tolerance to ADL's Therapeutic Exercise to Include: Strength training, Power training, Body mechanics, Postural training, Flexibilty training, In an aquatic setting, Passive ROM, Active ROM, Dynamic Lumbar Stabilization, Hilda Exercises For the Purpose of:: To decrease pain, To increase ROM, To improve nutrient delivery to tissue, To increase oxygenation perfusion, To improve muscle performance and motor function, To improve ability to perform ADL's, To increase tolerance to activity/condition/position, To improve performance and independence with ADL's, To improve health of tissue, To increase flexibility/ROM Please do not hesitate to contact me at [phone] by phone or Fax: if you have questions or concerns regarding this new plan of care! Sincerely, Sam Hansen DPT
--- NOTE | 2018-09-07 07:11 | HP.PTDCSUM ---
HP - PT D/C Summary It has been my pleasure to treat OLGA PLASENCIA under orders from Miguel Arteaga MD, for the diagnosis of Low back and leg pain for a total of 17 visit(s). Discharge Date: 09/06/18 Please see the following information for a summary of their discharge status. - Subjective Subjective: Pt. reports my back is doing better, but my knee is still really painful and gives out on my.' Pt. reports being HEP compliant. He has been remodling a room in his house, painting etc and has noticing some more discomfort. Pt. reports being 75% better in his back. R knee unchanged. - Pain R knee Pain Intensity (Out of 10): 3 Lumbar spine Pain Intensity (Out of 10): 1 R foot Pain Intensity (Out of 10): 0 - Overall Improvement % Improvement: 75 - Objective Objective/Function: ROM: Knee 0-2-110deg. Pain at endranges of motion. Lumbar spine: flexion min loss, ext min loss, SB/rotaiton min los bilat/ea. MME: RLE- ext 4+/5, flexion 4/5, increase NW, hip- flexion 4+/5, abd 4/5, ext 4+/5. LLE- ankle 5/5 throuhgout; knee- 5/5 througout; hip- 5/5 throughout, except hip abd 4+/5. Core strength- fair-/5. GAIT: Pt. ambulates with antalgic pattern during R stance phase. Pt. has incraesed R lateral lean during stance phase. Pt. reports increased R knee pain as well. Pt. did have R kne buckle on him x2, but able to self correct. Pt. had MRI, awaiting results. - Goals Goal 1:: Pt. to be I with HEP. Goal Progress: Goal Met Goal 2:: Pt. to have increased core and BLE strength increased by 1/2 grade of all effected musculature. Goal Progress: Goal Met Goal 3:: Pt. to ambulate unlimited distances with 0-2/10 pain. Goal Progress: Progressing Goal 4:: Pt. to sleep throughout the night without increase in symptoms. Goal Progress: Goal Met Goal 5:: Pt. to complete all ADLs and IADLs with 0-2/10 pain in R leg and lumbar spine. Goal Progress: Progressing - Plan Plan: Pt. to be DC to physician for knee pain, awaiting MRI result. Lumbar spine pain has reduced, but PT did not effect R knee pain. - D/C Information Discharge Comments: Pt. was seen in aquatic setting for PT. PT. was treated with core strenthening and BLE strengtheing. Pt. had marked relief with his back pain, but did not effect his R knee pain. Pt. continue to have increased R knee pain during standing and walking. Pt. has had an MRI, awaiting results. Pt. to follow back up with physician about knee pain and how to proceed. Pt. will be DC from PT at this point in time. If there are questions or concerns regarding this patient's physical therapy, please feel free to call me at [phone]. Thank you for the referral of this patient. Sincerely, Sam Hansen DPT
== END 2018-09-06 19:00 | disposition home or self-care (01) ==
LOC: PT 14:30
PROVIDERS: Family Provider Internal Medicine; PCP Internal Medicine; Referring Provider Anesthesiology Pain Medicine; Visit Provider Anesthesiology Pain Medicine
DX: M54.9 Dorsalgia, unspecified (principal); M79.606 Pain in leg, unspecified; M51.36 Other intervertebral disc degeneration, lumbar region
CPT/HCPCS: 97113; 97161; 97530

== ENCOUNTER → 2018-10-17 10:10 | Outpatient (CLI) | payer MEDICAID, SELFPAY ==
[2018-10-10 12:59] VITALS: BMI 38.6
[2018-10-17 11:04] LABS: Valproic Acid (Depakene) Level 45 ug/mL (50-100)
[2018-10-17 11:07] LABS: ALB/GLOB Ratio 0.8 RATIO (0.9-2.4); AST(SGOT) 18 U/L (15-37); Alanine Aminotransfer ALT/SGPT 29 U/L (16-61); Albumin, Serum 3.4 g/dL (3.2-5.0); Alkaline Phosphatase 88 U/L (45-117); Anion Gap 4 (5-15); BUN 21 mg/dL (7-18); BUN/Creat Ratio 16.3 RATIO (10-20); Calcium,Total 9.2 mg/dL (8.5-10.1); Chloride 95 mmol/L (98-107); Creatinine, Serum 1.29 mg/dL (0.70-1.30); EST Glomerular Filtration Rate 63 mL/min (>60); Est Glom Filt Rate - Afr Amer 77 mL/min (>60); Globulin 4.3 g/dL (2.2-4.2); Glucose 356 mg/dL (74-106); Potassium 4.2 mmol/L (3.5-5.1); Protein, Total 7.7 g/dL (6.4-8.2); Sodium Level 131 mmol/L (136-145)
== END ==
PROVIDERS: Family Provider Internal Medicine; PCP Internal Medicine; Referring Provider Nurse Practitioner Family; Visit Provider Nurse Practitioner Family
DX: Z79.899 Other long term (current) drug therapy (principal)
CPT/HCPCS: 36415; 80053; 80164; 82140

== ENCOUNTER → 2018-10-31 11:00 | Outpatient (CLI) | payer MEDICAID, SELFPAY ==
[2018-08-29 09:31] VITALS: BMI 38.9
== END ==
PROVIDERS: Family Provider Internal Medicine; PCP Internal Medicine; Referring Provider Nurse Practitioner Acute Care; Visit Provider Nurse Practitioner Acute Care
DX: G47.30 Sleep apnea, unspecified (principal)
CPT/HCPCS: 98960; G0463

== ENCOUNTER → 2018-11-14 13:55 | Outpatient (CLI) | payer MEDICAID, SELFPAY ==
[2018-11-06 15:18] VITALS: BMI 39.3
--- NOTE | 2018-11-14 13:56 | RAD_ITS ---
STUDY: X-RAY - LEFT KNEE REASON FOR EXAM: Pain. TECHNIQUE: 4 view(s) of the knee. COMPARISON: None. FINDINGS: There is an osteochondral lesion of the posterior aspect of the medial femoral condyle. Normal visualized proximal tibia and fibula. Normal proximal tibiofibular articulation. Normal medial femorotibial compartment. Normal lateral femorotibial compartment. Normal patellofemoral articulation. There is a small joint effusion. RAD/Knee 4 or More Views IMPRESSION: Osteochondral lesion of the posterior medial femoral condyle. Small joint effusion. Electronically Signed: Bryan Watters MD at 14:29 EDT Tel , Service support ,
== END ==
PROVIDERS: Family Provider Internal Medicine; PCP Internal Medicine; Referring Provider Orthopaedic Surgery; Visit Provider Orthopaedic Surgery
DX: M25.562 Pain in left knee (principal)
CPT/HCPCS: 73564

== ENCOUNTER → 2019-05-03 11:06 | Outpatient (CLI) | payer MEDICAID, SELFPAY ==
[2019-04-24 13:38] VITALS: BMI 37.3
== END ==
PROVIDERS: PCP Nurse Practitioner Family; Referring Provider Nurse Practitioner Family; Visit Provider Nurse Practitioner Family
DX: R00.2 Palpitations (principal)
CPT/HCPCS: 93225; 93226

== ENCOUNTER → 2019-05-16 08:02 | Outpatient (CLI) | payer MEDICAID, SELFPAY ==
[2019-04-24 13:38] VITALS: BMI 37.3
[2019-05-16 08:39] LABS: Hematocrit 44.9 % (40-54); Hemoglobin 14.9 g/dL (13.0-16.5); Mean Corp Hgb Conc 33.2 g/dL (32-36); Mean Corpuscular Hgb 29.2 pg (27.0-32.0); Mean Platelet Vol. 9.9 fl (6.2-12.0); Platelet Count 484 K/mm3 (150-450); RBC Distribution Width CV 15.5 % (11.6-14.6); RBC Distribution Width SD 50.2 fl (35.1-43.9); White Blood Count 11.2 K/mm3 (4.4-11.0)
[2019-05-16 09:11] LABS: ALB/GLOB Ratio 0.8 RATIO (0.9-2.4); AST(SGOT) 41 U/L (15-37); Alanine Aminotransfer ALT/SGPT 65 U/L (16-61); Albumin, Serum 3.8 g/dL (3.2-5.0); Alkaline Phosphatase 65 U/L (45-117); Amphetamine Urine VISTA POSITIVE (<1000 ng/mL); Anion Gap 5 (5-15); BUN 27 mg/dL (7-18); BUN/Creat Ratio 23.1 RATIO (10-20); Barbiturate Urine VISTA NEGATIVE (< 200 ng/mL); Benzodiazepine Urine VISTA NEGATIVE (< 200 ng/mL); Calcium,Total 9.6 mg/dL (8.5-10.1); Chloride 101 mmol/L (98-107); Cholesterol 204 mg/dL (200); Cocaine Urine VISTA NEGATIVE (< 300 ng/mL); Creatinine, Serum 1.17 mg/dL (0.70-1.30); EST Glomerular Filtration Rate 71 mL/min (>60); Ecstacy Urine VISTA POSITIVE (< 500 ng/mL); Est Glom Filt Rate - Afr Amer 86 mL/min (>60); Globulin 4.7 g/dL (2.2-4.2); Glucose 176 mg/dL (74-106); High Density Lipoprotein 36 mg/dL; Magnesium 2.3 mg/dL (1.6-2.6); Methadone Urine VISTA NEGATIVE (< 300 ng/mL); PCP Urine VISTA NEGATIVE (< 25 ng/mL); Potassium 4.2 mmol/L (3.5-5.1); Protein, Total 8.5 g/dL (6.4-8.2); Sodium Level 137 mmol/L (136-145); T4 Free Direct 1.08 ng/dL (0.76-1.46); THC Urine VISTA NEGATIVE (< 50 ng/mL); Thyroid Stim Hormone (TSH) 3.57 uIU/mL (0.358-3.74); Triglycerides 213 mg/dL; Very Low Density Lipoprotein 43 mg/dL (5-40); Vista UDS pH Range 6
[2019-05-16 09:15] LABS: Microalbumin,Random Urine < 5.0 mg/L (NO RANGE EST.)
== END ==
PROVIDERS: PCP Nurse Practitioner Family; Referring Provider Anesthesiology Pain Medicine; Visit Provider Anesthesiology Pain Medicine
DX: R00.2 Palpitations (principal); I10 Essential (primary) hypertension; E11.9 Type 2 diabetes mellitus without complications; F11.20 Opioid dependence, uncomplicated
CPT/HCPCS: 36415; 80053; 80061; 80307; 82043; 82570; 83735; 84439; 84443; 85027

== ENCOUNTER → 2019-10-25 13:48 | Outpatient (CLI) | payer MEDICAID, SELFPAY ==
[2019-10-25 13:29] VITALS: BMI 36.7
[2019-10-25 16:09] LABS: AST(SGOT) 18 U/L (15-37); Alanine Aminotransfer ALT/SGPT 31 U/L (16-61); Albumin, Serum 3.9 g/dL (3.2-5.0); Alkaline Phosphatase 78 U/L (45-117); Anion Gap 6 (5-15); BUN 26 mg/dL (7-18); BUN/Creat Ratio 20.3 RATIO (10-20); Calcium,Total 9.5 mg/dL (8.5-10.1); Chloride 102 mmol/L (98-107); Creatinine, Serum 1.28 mg/dL (0.70-1.30); EST Glomerular Filtration Rate 64 mL/min (>60); Est Glom Filt Rate - Afr Amer 77 mL/min (>60); Globulin 4.1 g/dL (2.2-4.2); Glucose 178 mg/dL (74-106); Potassium 4.4 mmol/L (3.5-5.1); Sodium Level 138 mmol/L (136-145)
[2019-10-25 16:59] LABS: Microalbumin,Random Urine < 5.0 mg/L (NO RANGE EST.)
== END ==
PROVIDERS: PCP Internal Medicine; Referring Provider Internal Medicine; Visit Provider Internal Medicine
DX: E11.9 Type 2 diabetes mellitus without complications (principal)
CPT/HCPCS: 36415; 80053; 82043; 82570

== ENCOUNTER → 2019-11-12 13:45 | Outpatient (CLI) | payer MEDICAID, SELFPAY ==
[2019-11-12 10:26] VITALS: BMI 36.7
--- NOTE | 2019-11-12 13:45 | RAD_ITS ---
STUDY: X-RAY - RIGHT KNEE REASON FOR EXAM: Male, 49 years old. PAIN IN BOTH KNEES FOR SOME TIME NOW GETTING WORSE WITH CRACKING AND CLICKING. NO KNOWN INJURY. TECHNIQUE: 4 view(s) of the knee. COMPARISON: None. FINDINGS: Normal visualized distal femur. Normal visualized proximal tibia and fibula. Normal proximal tibiofibular articulation. There is severe degenerative arthrosis of the medial femorotibial compartment with severe joint space narrowing. Normal lateral femorotibial compartment. There is mild degenerative arthrosis of the patellofemoral articulation. The soft tissue structures are unremarkable. RAD/Knee 4 or More Views IMPRESSION: Degenerative arthrosis. Electronically Signed: Jasper Prince MD at 15:42 EDT , Service support ,
--- NOTE | 2019-11-12 13:46 | RAD_ITS ---
STUDY: X-RAY - LEFT KNEE REASON FOR EXAM: Male, 49 years old. PAIN IN BOTH KNEES FOR SOME TIME NOW GETTING WORSE WITH CRACKING AND CLICKING. NO KNOWN INJURY. TECHNIQUE: 4 view(s) of the knee. COMPARISON: None. FINDINGS: Normal visualized distal femur. Normal visualized proximal tibia and fibula. Normal proximal tibiofibular articulation. There is moderate degenerative arthrosis of the medial femorotibial compartment with moderate joint space narrowing. Normal lateral femorotibial compartment. There is mild degenerative arthrosis of the patellofemoral articulation. The soft tissue structures are unremarkable. RAD/Knee 4 or More Views IMPRESSION: Degenerative arthrosis. Electronically Signed: Jasper Prince MD at 15:42 EDT , Service support ,
== END ==
PROVIDERS: PCP Internal Medicine; Referring Provider Orthopaedic Surgery; Visit Provider Orthopaedic Surgery
DX: M25.562 Pain in left knee (principal); M25.561 Pain in right knee
CPT/HCPCS: 73564

== ENCOUNTER → 2019-11-17 07:14 | Outpatient (CLI) | payer MEDICAID, SELFPAY ==
[2019-11-12 10:26] VITALS: BMI 36.7
--- NOTE | 2019-11-17 07:15 | MRI_ITS ---
STUDY: MRI LEFT KNEE REASON FOR EXAM: Male, 49 years old. Knee pain TECHNIQUE: Standardized fat and water weighted pulse sequences were obtained in all 3 orthogonal planes. COMPARISON: X-ray 11/12/2019 FINDINGS: Meniscectomy change of the medial meniscus without remnant re-tear. Pseudoextrusion of the body the medial meniscus. There is diffuse, full thickness articular cartilage loss of the medial femorotibial compartment. There is reactive marrow edema of the medial femoral condyle and tibial plateau. Associated medial capsulitis. Normal medial collateral ligamentous complex (MCL). Normal distal semimembranosus, gracilis and semitendinosus tendons. Normal lateral meniscus. Normal hyaline cartilage of the lateral femorotibial compartment. Normal lateral femoral condyle and tibial plateau. Normal proximal tibiofibular articulation. Normal lateral collateral (fibular) ligament. Normal popliteus tendon. Normal biceps femoris tendon. Normal anterior cruciate ligament (ACL). Normal posterior cruciate ligament (PCL). Normal congruent patellofemoral articulation. Normal hyaline cartilage of the patellofemoral compartment. Normal medial and lateral patellar retinaculum. Normal quadriceps tendon. Normal patellar tendon. Normal Hoffa''s fat pad. There is a large volume joint effusion. The soft tissues are unremarkable. The otherwise visualized osseous structures are unremarkable. MRI/Lower Ext Joint Only (Routine) IMPRESSION: Meniscectomy change in the medial meniscus without remnant re-tear. Pseudoextrusion of the body the meniscus with full-thickness chondral loss of the weightbearing medial femoral condyle medial tibial plateau with subchondral edema, medial capsulitis, and large joint effusion. Electronically Signed: Andres Sapp MD at 13:02 EDT Tel , Service support ,
== END ==
PROVIDERS: PCP Internal Medicine; Referring Provider Orthopaedic Surgery; Visit Provider Orthopaedic Surgery
DX: M25.562 Pain in left knee (principal)
CPT/HCPCS: 73721

== ENCOUNTER → 2020-01-22 11:12 | Outpatient (CLI) | payer MEDICAID, SELFPAY ==
[2019-10-25 13:29] VITALS: BMI 36.7
[2019-11-21 08:06] VITALS: BMI 36.7
[2020-01-22 12:04] LABS: Valproic Acid (Depakene) Level 50 ug/mL (50-100)
== END ==
PROVIDERS: PCP Internal Medicine; Visit Provider Nurse Practitioner Family
DX: F19.10 Other psychoactive substance abuse, uncomplicated (principal); R53.83 Other fatigue; Z79.899 Other long term (current) drug therapy
CPT/HCPCS: 36415; 80164; 82140

== ENCOUNTER → 2020-02-25 08:30 | Outpatient (CLI) | payer MEDICAID, SELFPAY ==
[2020-02-20 11:16] VITALS: BMI 37.3
--- NOTE | 2020-02-25 08:31 | CT_ITS ---
STUDY: CT SCAN LOWER EXTREMITY RIGHT REASON FOR EXAM: Male, 49 years old. RT KNEE CLAUS RADIATION DOSAGE (If Supplied By Facility): CTDIvol = ( 18.76 ) mGy, DLP = ( 1156.44 ) mGycm. Individualized dose optimization techniques were used for this CT.? TECHNIQUE: Multiple axial tomographic images of the right hip, right knee and right ankle joints were obtained. Sagittal and coronal reconstruction was obtained as well. COMPARISON: None. FINDINGS: The right hip joint is unremarkable. No significant joint space narrowing is seen. There is a marked degree of joint space narrowing involving the medial compartment of the knee joint with degenerative spurring and subchondral sclerosis of the medial femoral condyle and medial tibial plateau. Degenerative spurring is also seen along the lateral femoral condyle and lateral tibial plateau. There is a 1 cm well-corticated bony density in the anterior lateral aspect of the knee joint. Moderate sized joint effusion. Imaging of the ankle was obtained as well. No significant abnormality is seen. CT/Extremity Lower without Contra IMPRESSION: Degenerative changes at the level of the knee joint as described. Moderate-sized joint effusion Electronically Signed: Karan Talbert, at 13:28 EST , Service support ,
--- NOTE | 2020-02-25 08:31 | CT_ITS ---
STUDY: CT SCAN LOWER EXTREMITY LEFT REASON FOR EXAM: Male, 49 years old. LT KNEE CLAUS RADIATION DOSAGE (If Supplied By Facility): CTDIvol = ( 18.76 ) mGy, DLP = ( 1103.17 ) mGycm. Individualized dose optimization techniques were used for this CT.? TECHNIQUE: Multiple axial tomographic images of the left hip joint, knee joint and ankle joint were obtained. Sagittal and coronal reconstruction was obtained as well. COMPARISON: None. FINDINGS: Imaging of the left hip joint was obtained. There is good alignment. No significant joint space narrowing is seen. Imaging of the left knee joint was obtained. There is a marked degree of joint space narrowing with small degenerative spur formation along the medial femoral condyle and medial tibial plateau. There is a moderate-sized joint effusion. Cystic changes are seen in the posterior aspect of the distal femoral medial condyle. Imaging of the ankle joint was obtained. No abnormality is seen. CT/Extremity Lower without Contra IMPRESSION: Marked degree of joint space narrowing involving the medial compartment of knee joint with degenerative spur formation of the distal medial femoral condyle and medial tibial plateau. Moderate size joint effusion. Electronically Signed: Karan Talbert, at 10:38 EST , Service support ,
== END ==
PROVIDERS: PCP Internal Medicine; Referring Provider Orthopaedic Surgery; Visit Provider Orthopaedic Surgery
DX: M17.0 Bilateral primary osteoarthritis of knee (principal)
CPT/HCPCS: 73700

== ENCOUNTER 2020-03-04 08:19 | Inpatient (IN) | payer MEDICAID, SELFPAY ==
[2020-02-20 11:16] VITALS: BMI 37.3
--- NOTE | 2020-02-25 08:28 | EKG12_ITS ---
Test Reason : PRE OP Blood Pressure : / mmHG Vent. Rate : 091 BPM Atrial Rate : 091 BPM P-R Int : 172 ms QRS Dur : 096 ms QT Int : 368 ms P-R-T Axes : 044 -44 043 degrees QTc Int : 452 ms Normal sinus rhythm Left axis deviation Abnormal ECG Confirmed by ANGELINA TRAMMELL, FIORELLA ([id number]), technical writer and editor WARNER VILLANUEVA ([id number]) on 02/26/2020 9:24:40 AM Referred By: Mathieu Murphy Confirmed By:FIORELLA ALFARO MD
--- NOTE | 2020-02-25 08:42 | RAD_ITS ---
STUDY: X-RAY CHEST REASON FOR EXAM: Male, 49 years old. PATIENT STATES HAVING SAI KNEE REPLACEMENT NEXT WEEK. TECHNIQUE: PA and lateral views of the chest. COMPARISON: Comparison is made with prior examination dated 12/12/2017. FINDINGS: Hyperinflation. There is blunting of the left phrenic angle with the mild increased markings at the left lung base suggestive of a scarring. Normal size heart. Normal mediastinum and dinorah. Normal visualized pulmonary arteries. Normal visualized aortic arch and descending thoracic aorta. There are diffuse degenerative changes of the visualized thoracic spine. Normal visualized ribs, clavicles, and shoulders. There is no demonstrated abnormality of the visualized soft tissue structures of the upper abdomen. RAD/Chest PA and Lateral IMPRESSION: Hyperinflation. Blunting of the left costal phrenic angle with findings suggesting mild linear scarring at the left lung base. Electronically Signed: Karan Talbert, at 16:04 EST , Service support ,
[2020-02-25 08:50] LABS: Absolute Lymphocyte Count 3.43 X10^3/uL (0.83-4.51); Absolute Neutrophil Count 4.6 X10^3/uL (2.0-7.7); Basophil# 0.12 X10^3/uL; Basophil% 1.2 % (0-1); Eosinophil# 0.24 X10^3/uL; Eosinophils% 2.4 % (0-5); Hematocrit 42.6 % (40-54); Hemoglobin 13.9 g/dL (13.0-16.5); Lymphocyte # 3.43 X10^3/ul (4.0); Lymphocyte % 34.9 % (19-41); Mean Corp Hgb Conc 32.6 g/dL (32-36); Mean Corpuscular Hgb 29.1 pg (27.0-32.0); Mean Corpuscular Volume 89.1 fL (80-94); Mean Platelet Vol. 9.2 fl (6.2-12.0); Monocyte# 1.42 X10^3/uL; Monocyte% 14.4 % (0-10); NRBC Flagged by Analyzer 0 % (0-5); Neutrophil # 4.57 X10^3/uL (2.7-7.7); Neutrophil % 46.6 % (47-70); Platelet Count 508 K/mm3 (150-450); RBC Distribution Width SD 45.1 fl (35.1-43.9); Red Blood Count 4.78 M/mm3 (4.6-6.2); White Blood Count 9.8 K/mm3 (4.4-11.0)
[2020-02-25 09:00] LABS: International Normalized Ratio 1.1; Prothrombin Time (Protime)PT. 13.5 SECONDS (11.7-14.9)
[2020-02-25 09:01] LABS: Partial Thromboplast Time 27.2 Seconds (24.1-36.2)
[2020-02-25 09:11] LABS: Anion Gap 6 (5-15); BUN 18 mg/dL (7-18); BUN/Creat Ratio 17.1 RATIO (10-20); Calcium,Total 9.4 mg/dL (8.5-10.1); Chloride 104 mmol/L (98-107); Creatinine, Serum 1.05 mg/dL (0.70-1.30); EST Glomerular Filtration Rate 80 mL/min (>60); Est Glom Filt Rate - Afr Amer 97 mL/min (>60); Glucose 90 mg/dL (74-106); Magnesium 1.6 mg/dL (1.6-2.6); Potassium 3.3 mmol/L (3.5-5.1); Sodium Level 140 mmol/L (136-145)
[2020-02-25 09:57] LABS: Hemoglobin A1c 6.2 % (3.8-5.6)
[2020-03-04] VITALS (10 sets, daily range): BP systolic 112–125; BP diastolic 65–90; PULSE 75–99; RESP 16–20; TEMP 36.1–36.9; O2SAT 93–100; BMI 35.6; BMI 37.8
--- NOTE | 2020-03-04 06:00 | HP_ITS ---
Intake Intake Visit Reasons: bilateral knee Chief Complaint: FU Chronic Conditions Allergies No Known Allergies Allergy (Verified 02/20/20 11:15) [facility] Medical History (Updated 02/11/20 @ 11:37 by Maureen Bright) Seizure disorder (Chronic) Diabetes (Chronic) Depression (Chronic) HTN (hypertension), benign (Chronic) Sleep apnea (Chronic) Arthritis (Chronic) GERD (gastroesophageal reflux disease) (Chronic) Chronic pain (Chronic) Surgical History History of amputation (Resolved) Post-splenectomy (Resolved) cyst removed from pancreas (Resolved) Family History Father Diabetes Mother Multiple sclerosis Other CVA (cerebral vascular accident) Social History (Updated 02/22/20 @ 13:21 by Fernie BENNETT, PA) Smoking Status: Former smoker Tobacco: How many years used: 30 Smokeless tobacco user: snuff how long ago did patient quit smokin, 1ppd second hand exposure: Yes alcohol intake: former year quit: 2018 substance use type: does not use what type of physical activity do you participate in: none HPI bilateral knee: Details: Parts of this documentation were recorded by a scribe, this documentation accurately reflects the service provided and the decisions made by me, SABRINA Yo 02/22/20 0905. OLGA PLASENCIA is a 49 year old M here today for BL knee IOVERA treatment. Patient continues to have generalized BL knee pain. He plans to undergo BL TKA on 03/04/2020. Denies numbness, tingling or other associated symptoms. Patient has already signed his consent form for surgery and already received his ensure drinks and the required soap for cleansing. ROS Const Reports weakness Musc Reports system reviewed and no additional complaints, except as docu, Reports abnormal walking, Reports joint pain, Reports joint swelling, Denies numbness, Denies tingling Skin/Breast Reports system reviewed and no additional complaints, except as docu, Denies dry skin, Denies redness, Denies lesions, Denies new lesions, Denies non-healing lesions, Denies itching, Denies rash, Denies skin ulcer, Reports sores, Denies unusual bruising, Denies wounds Neuro Yes system reviewed and no additional complaints, except as docu, Yes abnormal walking, No numbness, No restless legs, No tingling, No tremor(s), Yes weakness Ortho Exam Right Knee Skin/Wound: No erythema, No ecchymosis Knee ROM: Yes ROM-Extension -20 to 0, No ROM-Flexion 0-140 (approx 120) Examination: No Med jt line tenderness, No Lat jt line tenderness Patella Grind: Yes KNEE: No acute abnormalities on inspection. Patient has evident osteophytic growth on the medial aspect of the knee. No other gross deformities noted. He is neurovascularly intact throughout the extremity with soft compartments and no calf tenderness. Left Knee Skin/Wound: No ecchymosis, No erythema Homans Sign: No 3+: Effusion (grade 3) Knee ROM: Yes ROM-Extension -20 to 0, Yes ROM-Flexion 0-140 Examination: Yes med jt line tenderness (Minor), Yes Lat jt line tenderness, Yes Crepitus, Yes Pain with flexion KNEE: No acute abnormalities on inspection. No erythema, warmth, swelling, or other signs of acute infection. He is neurovascularly intact throughout the extremity with soft compartments and no calf tenderness. Assessment & Plan Problems 1. Primary osteoarthritis of left knee M17.12 2. Primary osteoarthritis of right knee M17.11 Plan Preoperative diagnosis : Postoperative diagnosis: Same Procedure: Cryotherapy with Iovera device to anterior femoral cutaneous nerve and 2 branches of the infrapatellar saphenous nerve III nerves in total Description of procedure: Patient was brought back to the procedure room the operative extremity was identified by both patient and physician. The PIP flexion crease was measured to the midpoint of the patella and this distance was divided in 3 resulting in 12 cm location proximal to the midpoint of the patella. This line was extended medial and lateral to the extent of the edges of the patella. This was our treatment line for the anterior femoral cutaneous nerve. A second treatment line was made 5 cm medial to the inferior pole of the patella and 5 cm distally. The leg was prepped with alcohol and Betadine. Lidocaine with epi was used along the treatment lines. Using the Iovera device treatment lines were treated with 1 minute cycles. Reproduction of paresthesias was monitored in the area of nerve distribution. Once all 3 nerves were treated across the 2 treatment lines patient was cleaned and a light dressing with 4 x 4 and Yoshi wrap was applied. Patient tolerated the procedure without complication. Orders Orders: Iovera Today M25.569 Coding Level of Care Code Attention Jeronimo Diagnoses Primary osteoarthritis of left knee M17.12 Primary osteoarthritis of right knee M17.11 Comment Iovera treatment bilateral knees -
--- NOTE | 2020-03-04 08:07 | HP.PCM_ITS ---
History and Physical Date of Admission: 03/04/20 Intake Intake Visit Reasons: bilateral knee Chief Complaint: FU Chronic Conditions Allergies No Known Allergies Allergy (Verified 02/20/20 11:15) [facility] Medical History (Updated 02/11/20 @ 11:37 by Maureen Bright) Seizure disorder (Chronic) Diabetes (Chronic) Depression (Chronic) HTN (hypertension), benign (Chronic) Sleep apnea (Chronic) Arthritis (Chronic) GERD (gastroesophageal reflux disease) (Chronic) Chronic pain (Chronic) Surgical History History of amputation (Resolved) Post-splenectomy (Resolved) cyst removed from pancreas (Resolved) Family History Father Diabetes Mother Multiple sclerosis Other CVA (cerebral vascular accident) Social History (Updated 02/22/20 @ 13:21 by Fernie BENNETT, PA) Smoking Status: Former smoker Tobacco: How many years used: 30 Smokeless tobacco user: snuff how long ago did patient quit smokin, 1ppd second hand exposure: Yes alcohol intake: former year quit: 2018 substance use type: does not use what type of physical activity do you participate in: none HPI bilateral knee: Details: Parts of this documentation were recorded by a scribe, this documentation accurately reflects the service provided and the decisions made by me, SABRINA Yo 02/22/20 0905. OLGA PLASENCIA is a 49 year old M here today for BL knee IOVERA treatment. Patient continues to have generalized BL knee pain. He plans to undergo BL TKA on 03/04/2020. Denies numbness, tingling or other associated symptoms. Patient has already signed his consent form for surgery and already received his ensure drinks and the required soap for cleansing. ROS Const Reports weakness Musc Reports system reviewed and no additional complaints, except as docu, Reports abnormal walking, Reports joint pain, Reports joint swelling, Denies numbness, Denies tingling Skin/Breast Reports system reviewed and no additional complaints, except as docu, Denies dry skin, Denies redness, Denies lesions, Denies new lesions, Denies non-healing lesions, Denies itching, Denies rash, Denies skin ulcer, Reports sores, Denies unusual bruising, Denies wounds Neuro Yes system reviewed and no additional complaints, except as docu, Yes abnormal walking, No numbness, No restless legs, No tingling, No tremor(s), Yes weakness Ortho Exam Right Knee Skin/Wound: No erythema, No ecchymosis Knee ROM: Yes ROM-Extension -20 to 0, No ROM-Flexion 0-140 (approx 120) Examination: No Med jt line tenderness, No Lat jt line tenderness Patella Grind: Yes KNEE: No acute abnormalities on inspection. Patient has evident osteophytic growth on the medial aspect of the knee. No other gross deformities noted. He is neurovascularly intact throughout the extremity with soft compartments and no calf tenderness. Left Knee Skin/Wound: No ecchymosis, No erythema Homans Sign: No 3+: Effusion (grade 3) Knee ROM: Yes ROM-Extension -20 to 0, Yes ROM-Flexion 0-140 Examination: Yes med jt line tenderness (Minor), Yes Lat jt line tenderness, Yes Crepitus, Yes Pain with flexion KNEE: No acute abnormalities on inspection. No erythema, warmth, swelling, or other signs of acute infection. He is neurovascularly intact throughout the extremity with soft compartments and no calf tenderness. Assessment & Plan Problems 1. Primary osteoarthritis of left knee M17.12 2. Primary osteoarthritis of right knee M17.11 Plan Preoperative diagnosis : Postoperative diagnosis: Same Procedure: Cryotherapy with Iovera device to anterior femoral cutaneous nerve and 2 branches of the infrapatellar saphenous nerve III nerves in total Description of procedure: Patient was brought back to the procedure room the operative extremity was identified by both patient and physician. The PIP flexion crease was measured to the midpoint of the patella and this distance was divided in 3 resulting in 12 cm location proximal to the midpoint of the patella. This line was extended medial and lateral to the extent of the edges of the patella. This was our treatment line for the anterior femoral cutaneous nerve. A second treatment line was made 5 cm medial to the inferior pole of the patella and 5 cm distally. The leg was prepped with alcohol and Betadine. Lidocaine with epi was used along the treatment lines. Using the Iovera device treatment lines were treated with 1 minute cycles. Reproduction of paresthesias was monitored in the area of nerve distribution. Once all 3 nerves were treated across the 2 treatment lines patient was cleaned and a light dressing with 4 x 4 and Yoshi wrap was applied. Patient tolerated the procedure without complication. Orders Orders: Iovera Today M25.569 Coding Level of Care Code Attention Jeronimo Diagnoses Primary osteoarthritis of left knee M17.12 Primary osteoarthritis of right knee M17.11 Comment Iovera treatment bilateral knees - I have re-examined the patient. There are no clinical changes since date of exam Procedure Criteria Procedure Type: Elective COVID Risk Discussion: The surgeon/proceduralist and patient have discussed in detail the risk of exposure to and/or potential harm posed by the COVID-19 virus with having a surgery/procedure at this time versus the risk of delaying the surgery/procedure. It is not possible to know either the risk of delaying the surgery or procedure or chance of getting an infection with perfect accuracy, but a joint decision was made between the patient and the surgeon/proceduralist to proceed at this time with the scheduled surgery/procedure as indicated on the consent form.
[2020-03-04] MEDS: Gabapentin 600 MG Tablet PO (09:48)
[2020-03-04] MEDS: Scopolamine 1mg/72hr Patch 1 PATCH TD (09:48)
[2020-03-04] MEDS: Acetaminophen 500 MG Tablet 1000 MG PO ×2 (09:48→22:12)
[2020-03-04] MEDS: Celecoxib 200 MG Capsule 400 MG PO (09:49)
[2020-03-04] MEDS: Lactated Ringers 1,000 ML 125 ML IV (09:49)
[2020-03-04 10:21] LABS: Bedside Glucose 129 mg/dL (70-110)
[2020-03-04] MEDS: Cefazolin 2 GM in 0.9% Normal Saline 100 ML IV (11:05)
[2020-03-04] MEDS: dexAMETHasone 10 MG/ML Vial IV (11:34)
[2020-03-04] MEDS: Epinephrine (1 mg/ml) 1 MG/ML VIAL (14:35)
[2020-03-04] MEDS: Bupivacaine Mpf 0.5% 30 ML VIAL (14:35)
[2020-03-04] MEDS: Betamethasone/Betamethasone 30 MG/5 ML Vial (14:35)
[2020-03-04] MEDS: 0.9% Normal Saline (Pres. free 10 ML Vial (14:35)
--- NOTE | 2020-03-04 15:11 | RAD_ITS ---
STUDY: X-RAY - LEFT KNEE REASON FOR EXAM: Male, 49 years old. POST OP LEFT KNEE TECHNIQUE: 4 view(s) of the knee. COMPARISON: 11/12/2019 FINDINGS: Status post left total knee arthroplasty with associated expected postsurgical changes in the soft tissues. Hardware appears intact and normally aligned. RAD/Knee 1 or 2 Views IMPRESSION: Status post left total knee arthroplasty. Electronically Signed: Aguila Kahn, at 16:40 EST Tel , Service support ,
--- NOTE | 2020-03-04 15:20 | OP.PCM_ITS ---
Report of Operation Date of Procedure: 03/04/20 Description of Surgical Findings:: Preoperative diagnosis: Bilateral knee DJD Postoperative diagnosis: Same Procedure: Bilateral total knee arthroplasty CT guided Robotic Assisted Implant: Left :Klever triathlon press fit femoral component size[ 5 press-fit tibial baseplate size 5, press fit asymmetric patella size 35, polyethylene X3 size 9 CS right:Klever triathlon press fit femoral component size 5, press-fit tibial baseplate size 6, press fit asymmetric patella size 35, polyethylene X3 size 9 CS Anesthesia: Spinal with adductor canal block Tourniquet time: 13 minutes at 300 mmHg left knee 12 minutes right knee Complications: None Condition: Stable to PACU Estimated blood loss: 200 cc Indication for procedure: This is a 49-year-old male with long standing degenerative joint disease of the knee who has failed conservative treatment and wished to proceed with elective total knee arthroplasty. Risk benefits and alternatives were reviewed including; risk of bleeding, infection, nerve artery and tissue damage, continued pain, postoperative stiffness, venous thromboembolism, need for postoperative rehabilitation, mechanical feel to the knee, and expected postoperative course. The operative CT and templating was performed with component sizing Procedure: The patient was met in the preoperative holding area. The operative extremity was identified by both patient and physician and was marked. Patient was met by anesthesia. An adductor canal block was placed by anesthesia postoperatively the patient was brought back to the operating room on a wheeled cart and transferred to the operating table in the supine position. Anesthesia was started. A well-padded tourniquet was placed on the operative extremity. The patient was prepped and draped in the usual sterile fashion. A timeout was called to ensure the proper patient procedure and extremity were being contemplated. An Esmarch was used to exsanguinate the extremity. The tourniquet was inflated. A 10 blade scalpel was used to make a midline incision down through the skin and subcutaneous tissue. Skin retractors placed. Bovie was used to perform meticulous hemostasis. full-thickness flaps were elevated medial and lateral along the joint capsule. A deep blade scalpel was used to perform a medial parapatellar arthrotomy. The knee was brought to full extension. A Bovie was used to release the soft tissues off the most proximal aspect of the medial tibial plateau, a three-quarter inch curved osteotome was also used for this process. The infrapatellar fat pad was excised. The superior fat pad was excised partially anteriorolateraly and portion the anterioromedial pad was elevated from the femur. At this point our intra- articular femoral array was placed of a 45 degree angle proximal and posterior to the medial epicondyle. Our tibial array was placed greater than 1 hands breath below the incision at a 20 degree angle stab incisions were used for this case were attached and checked with the robotic software. Tourniquet was let down. At this point registration bingham were taken throughout the knee as well as checkpoints placed in the femur and tibia once the knee was registered then tensioned the medial and lateral ligaments in extension and 90 degrees of flexion. We then used these numbers to adjust our components within parameters to balance the knee in both flexion and extension once this was done on our monitor we then proceeded with using the robotic arm to make our tibial plateau cut and anterior posterior and chamfer cuts and distal on the femur we then trialed and achieved the desired plan with a well-balanced knee. Lug holes were drilled in the femur the tibia preparation was completed with a fin punch and the patella was prepared by first using a caliper to ensure sufficient bone stock and a patellar reamer to remove the desired amount of bone locals were drilled for an asymmetric poly-. We then brought the knee through range of motion with excellent patellar tracking. We thoroughly irrigated the knee with a trial components were removed a posterior capsular injection with her standard cocktail was performed the aqua Mantis was also used to aid in hemostasis. Betadine rinse was allowed to sit and washed out components were press-fit into place. Aricept rinse was then used followed by several more rate liters of irrigation after it was allowed to sit. Joint capsule was closed with #1 Ethibond [id number] followed by Vicryl in the subcutaneous tissues staple in the skin arrays and checkpoints were removed prior to closure all counts were correct stab incisions were closed with a stable standard dressing in the form of Mepilex for the main incision Xeroform 4 x 4 and Tegaderm over pin site holes. Thigh-high JENNIFER hose applied over top of dressing. Procedure was repeated on the right knee after dressings were completely taken down and new set up performed .patient tolerated the procedures well and was directed to PACU in stable condition no intraoperative complications
--- NOTE | 2020-03-04 15:45 | RAD_ITS ---
STUDY: X-RAY - RIGHT KNEE REASON FOR EXAM: Male, 49 years old. POST OP RIGHT KNEE TECHNIQUE: 2 view(s) of the knee. COMPARISON: 11/12/2019 FINDINGS: Status post right total knee arthroplasty with expected post surgical soft tissue changes. Hardware appears intact and normally aligned. RAD/Knee 1 or 2 Views IMPRESSION: Status post right total knee arthroplasty. Electronically Signed: Aguila Kahn, at 16:42 EST Tel , Service support ,
[2020-03-04 15:51] LABS: Bedside Glucose 151 mg/dL (70-110)
[2020-03-04] MEDS: Cefazolin 1 GM/50 ML BAG IV ×2 (16:01→22:10)
--- NOTE | 2020-03-04 17:08 | PCM.PROGNOTE ---
<Emily Virk FINANCIAL SERVICE REP - Last Filed: 03/04/20 17:46> Subjective: Patient seen and examined. Underwent bilateral total knee arthroplasty. Arrived to floor approximately 30 minutes ago. Drowsy on assessment however easily awakens. No apparent distress. - Physical Exam Vitals/I&O's: Vital Signs Temp Pulse Resp BP Pulse Ox 97.4 F L 89 20 H 119/81 H 93 03/04/20 17:02 03/04/20 17:02 03/04/20 17:02 03/04/20 17:02 03/04/20 17:02 Oxygen Flow Rate (L/min) 6 Oxygen Delivery Method Room Air Weight: 255 lb 1.197 oz Body Mass Index (BMI) 35.6 Finger Stick Blood Glucose 94 Intake and Output for Last 24 Hours 03/02/20 03/03/20 03/04/20 23:59 23:59 23:59 Intake Total 487 / 487 Balance 487 / 487 General: No apparent distress, - - Drowsy HEENT: Atraumatic, PERRLA, EOMI, Normocephalic Neck: Supple, No JVD, Negative Carotid Bruits Lungs: Clear to auscultation, Normal air movement Cardiovascular: Regular rate, No murmurs Abdomen: Bowel Sounds Present, Soft, Non Tender, Non-Distended Extremities: No clubbing, No cyanosis, No edema, Capillary Refill Less than 3 Seconds Skin: No rashes, No breakdown, - - Postop dressings intact Musculoskeletal: No Tenderness to Palpation of Joints or Extremities Neurological: Cranial nerves II-XII grossly intact, Neuro grossly intact Psych/Mental Status: Normal Affect, Appropriate Microbiology Past 72 Hours 03/03/20 09:05 Interface Orders SARS-CoV-2 Antigen (Rapid) - Final Laboratory Results 03/04/20 10:07: POC Glucose 129 H 03/04/20 15:46: POC Glucose 151 H Current Medications Acetaminophen (Acetaminophen 500 Mg Tablet) 1,000 mg PO Q8 [facility] Amlodipine Besylate (Amlodipine 10 Mg Tablet) 10 mg PO DAILY [facility] Apixaban (Apixaban 2.5 Mg Tablet) 2.5 mg PO BID [facility] Buspirone HCl (Buspirone 15 Mg Tablet) 30 mg PO BID [facility] Divalproex Sodium (Divalproex (Er) 500 Mg Tablet) 1,000 mg PO QHS [facility] Doxazosin Mesylate (Doxazosin 1 Mg Tablet) 2 mg PO QHS [facility] Duloxetine HCl (Duloxetine Hcl 60 Mg Capsule) 60 mg PO QHS [facility] Hydromorphone HCl (Hydromorphone 0.5 Mg/0.5 Ml Syringe) 0.5 mg IV Q2H PRN PRN PRN Reason: Pain Score 6-10 Lactated Ringer's () 1,000 mls @ 125 mls/hr IV .Q8H [facility] Stop: 03/04/20 19:59 Last Admin: 03/04/20 09:49 Dose: 125 mls/hr Documented by: Cefazolin Sodium () 1 gm in 50 mls @ 100 mls/hr IV Q8 [facility] Last Infusion: 03/04/20 16:31 Dose: Infused Documented by: Ketorolac Tromethamine (Ketorolac 30 Mg/Ml Syringe) 15 mg IV Q6H PRN PRN PRN Reason: Pain Score 1-5 Stop: 03/06/20 15:12 Non-Formulary Medication (Dextroamphetamine/Amphetamine [Mydayis Er 50 Mg Capsule]) 50 mg PO DAILY [facility] Ondansetron HCl (Ondansetron 4 Mg/2 Ml Vial) 4 mg IV Q6H PRN PRN PRN Reason: NAUSEA Oxycodone HCl (Oxycodone 5 Mg Tablet) 5 - 10 mg PO Q4H PRN PRN PRN Reason: Pain Score 4-10 Senna/Docusate Sodium (Senna/Docusate Sodium 1 Tablet) 2 tablet PO BID [facility] Trazodone HCl (Trazodone 100 Mg Tablet) 200 mg PO QHS [facility] Medical Necessity - Tobacco Use Smoking Status: Former smoker Assessment/Plan All Active Problems (Last Reviewed 01/24/20 @ 14:24 by Adrianna Coats) Primary osteoarthritis of right knee (Acute) Primary osteoarthritis of left knee (Acute) Segmental and somatic dysfunction of thoracic region (Acute) Segmental and somatic dysfunction of cervical region (Acute) Segmental and somatic dysfunction of lumbar region (Acute) Shortness of breath (Acute) History of amputation (Resolved) 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 Bilateral knee osteoarthritis-status post bilateral total knee arthroplasty by Dr. Murphy postop day #0. Management per Ortho. 2. Type 2 diabetes mellitus-hemoglobin A1c 02/25/2020 6.2%. Accu-Cheks with sliding scale insulin. Continue home insulin regimen. 3. Hypertension-stable, continue amlodipine, HCTZ, Cardura. 4. Hyperlipidemia-on fenofibrate. 5. Anxiety/depression-continue buspirone, divalproex, duloxetine. 6. History of chronic alcoholism-in remission. 7. GERD-continue PPI. DVT prophylaxis-Eliquis This patient was seen by DENEEN Zambrano under the supervision of Dr. Nova. <Jami Nova - Last Filed: 03/04/20 20:31> - Physical Exam Vitals/I&O's: Vital Signs Temp Pulse Resp BP Pulse Ox 97.3 F L 99 20 H 118/85 H 95 03/04/20 18:58 03/04/20 18:58 03/04/20 18:58 03/04/20 18:58 03/04/20 18:58 Oxygen Flow Rate (L/min) 3 Oxygen Delivery Method Nasal Cannula Weight: 123.037 kg Body Mass Index (BMI) 37.8 Finger Stick Blood Glucose 94 Intake and Output for Last 24 Hours 03/02/20 03/03/20 03/04/20 23:59 23:59 23:59 Intake Total 1727 / 1727 Output Total 475 / 475 Balance 1252 / 1252 Microbiology Past 72 Hours 03/03/20 09:05 Interface Orders SARS-CoV-2 Antigen (Rapid) - Final Laboratory Results 03/04/20 10:07: POC Glucose 129 H 03/04/20 15:46: POC Glucose 151 H 03/04/20 17:20: POC Glucose 142 H Current Medications Acetaminophen (Acetaminophen 500 Mg Tablet) 1,000 mg PO Q8 [facility] Amlodipine Besylate (Amlodipine 10 Mg Tablet) 10 mg PO DAILY [facility] Apixaban (Apixaban 2.5 Mg Tablet) 2.5 mg PO BID [facility] Buspirone HCl (Buspirone 15 Mg Tablet) 30 mg PO BID [facility] Divalproex Sodium (Divalproex (Er) 500 Mg Tablet) 1,000 mg PO QHS [facility] Doxazosin Mesylate (Doxazosin 1 Mg Tablet) 2 mg PO QHS [facility] Duloxetine HCl (Duloxetine Hcl 60 Mg Capsule) 60 mg PO QHS [facility] Fenofibrate (Fenofibrate 145 Mg Tablet) 145 mg PO DAILYCM [facility] Hydrochlorothiazide (Hydrochlorothiazide 25 Mg Tablet) 25 mg PO DAILY [facility] Hydromorphone HCl (Hydromorphone 0.5 Mg/0.5 Ml Syringe) 0.5 mg IV Q2H PRN PRN PRN Reason: Pain Score 6-10 Last Admin: 03/04/20 19:32 Dose: 0.5 mg Documented by: Cefazolin Sodium () 1 gm in 50 mls @ 100 mls/hr IV Q8 [facility] Last Infusion: 03/04/20 16:31 Dose: Infused Documented by: Lactated Ringer's () 1,000 mls @ 75 mls/hr IV .[id number] [facility] Last Admin: 03/04/20 18:56 Dose: 75 mls/hr Documented by: Insulin Glargine (Insulin Glargine 100 Units/Ml Pen) 60 units SC QHS [facility] Insulin Human Lispro (Insulin Lispro 100 Unit/Ml Insuln.Pen) 0 unit SC ACHS [facility]; Protocol Ketorolac Tromethamine (Ketorolac 30 Mg/Ml Syringe) 15 mg IV Q6H PRN PRN PRN Reason: Pain Score 1-5 Stop: 03/06/20 15:12 Non-Formulary Medication (Dextroamphetamine/Amphetamine [Mydayis Er 50 Mg Capsule]) 50 mg PO DAILY [facility] Ondansetron HCl (Ondansetron 4 Mg/2 Ml Vial) 4 mg IV Q6H PRN PRN PRN Reason: NAUSEA Oxycodone HCl (Oxycodone 5 Mg Tablet) 5 - 10 mg PO Q4H PRN PRN PRN Reason: Pain Score 4-10 Pantoprazole Sodium (Pantoprazole Sodium 40 Mg Tablet) 40 mg PO DAILY [facility] Senna/Docusate Sodium (Senna/Docusate Sodium 1 Tablet) 2 tablet PO BID [facility] Sodium Chloride (0.9% Saline Lock 10 Ml Syringe) 10 - 40 ml IV UD PRN PRN Reason: SALINE FLUSH Trazodone HCl (Trazodone 100 Mg Tablet) 200 mg PO QHS [facility] Assessment/Plan This patient was seen in conjunction with Emily Virk NP. I have independently interviewed and examined the patient and reviewed pertinent historical, laboratory, and other data. Please refer to her note for patient's presentation, findings, and recommendations. Consult for postop management: 49-year-old with past medical history of seizure disorder, type II DM, depression, hypertension, CASE, obesity who had bilateral total knee arthroplasty today, 03/04/20. Patient was seen within 30 minutes of arriving to the floor. He was still drowsy from anesthesia. He had a Ventimask on. His vitals was being reassessed. Blood sugar was 142. He denied any pain. Physical Exam: Gen: Appeared slightly drowsy, not pale, not jaundiced, alert oriented x3 CVS:HS I +II, regular, no murmurs RESP: Diminished at lung bases GI: BS present and normal, nontender, no palpable organs EXT:No edema, bilateral knee cooling mats in place Labs reviewed: ASSESSMENT: 1. Postop day #0 status post bilateral total knee arthroplasty 2. Type II DM 3. Hypertension 4. Hyperlipidemia 5. Anxiety/depression Meds reviewed Plan: Continue to monitor vitals Continue on insulin regimen Monitor for hypoglycemia Labs tomorrow Inpatient E&M: [id number] Subs Hosp L2
[2020-03-04 17:25] LABS: Bedside Glucose 142 mg/dL (70-110)
--- NOTE | 2020-03-04 17:27 | NURSING ---
PT JUST ARRIVED FROM PACU @ 2911 - NOT OOB YET
[2020-03-04] MEDS: Lactated Ringers 1,000 ML 75 ML IV (18:56)
[2020-03-04] MEDS: HYDROmorphone 0.5 MG/0.5 ML SYRINGE IV ×2 (19:32→23:21)
[2020-03-04] MEDS: oxyCODONE 5 MG Tablet PO (22:10)
[2020-03-04] MEDS: Divalproex (ER) 500 MG Tablet 1000 MG PO (22:11)
[2020-03-04] MEDS: Senna/Docusate Sodium 1 Tablet 2 TABLET PO (22:12)
[2020-03-04] MEDS: traZODone 100 MG Tablet 200 MG PO (22:13)
[2020-03-04] MEDS: busPIRone 15 MG TABLET 30 MG PO (22:13)
[2020-03-04] MEDS: Doxazosin 1 MG Tablet 2 MG PO (22:14)
[2020-03-04] MEDS: DULoxetine Hcl 60 MG Capsule PO (22:14)
[2020-03-04] MEDS: Insulin Lispro 100 UNIT/ML INSULN.PEN SC (22:22)
[2020-03-04 22:26] LABS: Bedside Glucose 210 mg/dL (70-110)
[2020-03-05] MEDS: oxyCODONE 5 MG Tablet PO ×2 (04:16→10:13)
[2020-03-05 04:17] VITALS: BP 115/81; PULSE 88; RESP 18; TEMP 37; O2SAT 95
[2020-03-05] MEDS: Cefazolin 1 GM/50 ML BAG IV ×2 (05:36→14:41)
[2020-03-05 05:53] LABS: Hematocrit 33.8 % (40-54); Hemoglobin 10.9 g/dL (13.0-16.5); Mean Corp Hgb Conc 32.2 g/dL (32-36); Mean Corpuscular Hgb 28.9 pg (27.0-32.0); Mean Corpuscular Volume 89.7 fL (80-94); Mean Platelet Vol. 9.6 fl (6.2-12.0); Platelet Count 445 K/mm3 (150-450); RBC Distribution Width CV 14.1 % (11.6-14.6); RBC Distribution Width SD 45.6 fl (35.1-43.9); Red Blood Count 3.77 M/mm3 (4.6-6.2); White Blood Count 13.3 K/mm3 (4.4-11.0)
[2020-03-05 06:35] LABS: Anion Gap 3 (5-15); BUN 16 mg/dL (7-18); BUN/Creat Ratio 18.9 RATIO (10-20); Calcium,Total 8.2 mg/dL (8.5-10.1); Chloride 107 mmol/L (98-107); Creatinine, Serum 0.84 mg/dL (0.70-1.30); EST Glomerular Filtration Rate 103 mL/min (>60); Est Glom Filt Rate - Afr Amer 124 mL/min (>60); Estimated Creatinine Clearance 114.54 ml/min; Glucose 194 mg/dL (74-106); Potassium 4.2 mmol/L (3.5-5.1); Sodium Level 140 mmol/L (136-145)
[2020-03-05] MEDS: HYDROmorphone 0.5 MG/0.5 ML SYRINGE IV (06:42)
[2020-03-05 06:45] VITALS: O2SAT 95
[2020-03-05] MEDS: APIXABAN 2.5 MG TABLET PO ×2 (06:49→09:14)
[2020-03-05] MEDS: Acetaminophen 500 MG Tablet 1000 MG PO ×2 (06:49→14:41)
[2020-03-05] MEDS: Insulin Lispro 100 UNIT/ML INSULN.PEN SC ×3 (06:53→16:41)
[2020-03-05 07:00] LABS: Bedside Glucose 212 mg/dL (70-110)
[2020-03-05] MEDS: Fenofibrate 145 MG Tablet PO (07:33)
[2020-03-05] MEDS: busPIRone 15 MG TABLET 30 MG PO (09:14)
[2020-03-05] MEDS: amLODIPine 10 MG Tablet PO (09:14)
[2020-03-05] MEDS: hydroCHLOROthiazide 25 MG Tablet PO (09:15)
[2020-03-05] MEDS: Senna/Docusate Sodium 1 Tablet 2 TABLET PO (09:15)
[2020-03-05] MEDS: Pantoprazole Sodium 40 MG Tablet PO (09:15)
[2020-03-05 09:53] VITALS: BP 128/70; PULSE 74; RESP 18; TEMP 37; O2SAT 95
--- NOTE | 2020-03-05 10:30 | CASEMGMT ---
ARTURO GARCIA Face to Face with patient for initial transition planning/care coordination assessment. RN CM introduced self and role at [facility]. Patient sitting in chair, alert and oriented. Patient willing to participate in assessment and is able to answer all questions appropriately. Care providers, pharmacy, and demographics verified. Patient wishes to discharge to [facility] for additional therapy. Patient states he has no further needs or concerns at this time. SW updated regarding request for [facility] at discharge. CM to follow for discharge planning needs that may arise. PCP: [facility] Specialists: [facility] ortho; Basali, pain Preferred Pharm[facility]: [facility] Pres[facility] Benef[facility]: yes Living Will/HPOA: yes, brother Bill Bethea LNOK: brother, significant other Living Arrangements: Patient lives with significant other in a 2 story home with bedroom on second floor. 5 steps and railing to enter the home. Patient states he was independent prior to surgery. Transportation: Significant other DME/HHC: Patient states he has walker, wheelchair, and bipap at home. Patient has previously been to [facility] Disposition Plan: [facility] pending acceptance and precert. Sandra GLOVER, RN, CM
[2020-03-05 11:26] LABS: Bedside Glucose 259 mg/dL (70-110)
--- NOTE | 2020-03-05 12:34 | PCM.TXEXTCAR ---
- Diet 03/04/20 17:34 ADA [Diet: Consistent Carb - Calorie Controlled] Food consistency:: Regular Liquid Consistency:: Regular/Thin How many daily calories?: 1999 calorie - Routine Orders/Code Status Code Status: Full Code - Wound(s) right knee Wound Type: Surgical Incision left knee Wound Type: Surgical Incision - Therapies Weight Bearing: Weight bearing as tolerated Extremity Affected:: Bilateral Lower Physical Therapy: Eval and Treat Occupational Therapy: Eval and Treat - Allergies/Procedures Done in Hospital Allergies/Adverse Reactions: Allergies No Known Allergies Allergy (Verified 02/20/20 11:15) - Type of Care/Length of Stay Estimated LOS: Convalescent Care Less Than 30 days Type of Care Needed: Skilled Rehab Potential: Good Prognosis: Good - Additional Orders/Day of Discharge Day of Discharge: 03/05/20 - Follow Up Care Primary Care Physician: Asha Arreaga MD [Primary Care Provider] - Please Follow Up With: Mathieu Murphy DO When: 2 weeks
--- NOTE | 2020-03-05 12:38 | DCINST_ITS ---
Discharge Diet: 2000 Calorie Control Diet Weight Bearing Status: Weight bearing as tolerated Keep extremity elevated above heart level: Operative Extremity Call your doctor if you observe: Shortness of breath, Chest pain Additional Instructions: Ice and elevate one week while not ambulating. Ambulation is encouraged. Weightbearing as tolerated. Use assistive devise for stability. Encourage FULL knee extension and flexion 1 time EVERY time you get up and down and MULTIPLE times per day. No showering 72 hours after surgery. Begin showering postop day #3. Remove the dressing prior to shower and gently wash with warm water and antibacterial soap then pat dry and place abdominal pad (or plain gauze) and JENNIFER hose over top. This is to be done daily. Do not submerge for 3 weeks. If not showering daily after the initial 72 hours then you must clean incision and change dressing daily. Do not allow animals near the incision area. Keep clean. Follow anticoagulation recommendations as prescribed. Do not take any NSAIDs while on blood thinner. Do not take any additional narcotic pain medication other than what was prescribed on you surgery day without discussing with physician. Start physical therapy. If you are not currently scheduled for ph ysical therapy or you are unsure of appointment time please call office [place] to arrange. Call Dr. Murphy with any concerns. Allergies/Adverse Reactions: Allergies No Known Allergies Allergy (Verified 02/20/20 11:15) Medications to take at Discharge compress.stocking,knee,reg,lrg See Dose Instructions .ROUTE .MEDSUPPLY #2 ea 05/18/18 duloxetine 60 mg capsule,delayed release 60 mg PO QHS 05/18/18 dextroamphetamine-amphetamine ER 50 mg capsule,3 bead,ext release 24hr 50 mg PO DAILY 01/23/19 lancets 28 gauge See Dose Instructions .ROUTE .MEDSUPPLY #200 ea 01/23/19 amlodipine 10 mg tablet 10 mg PO DAILY #90 tab 12/05/19 divalproex 500 mg tablet,delayed release 1,000 mg PO QHS tab 01/24/20 pen needle, diabetic 31 gauge x 08/10 See Rx Instructions .ROUTE .COMPLEX #200 ea 02/07/20 Blood Sugar Diagnostic [[facility] Blood Glucose Test Strip] .ROUTE .MEDSUPPLY 02/15/20 Buspirone HCl 30 mg PO BID 02/15/20 Doxazosin Mesylate [Cardura] 2 mg PO QHS 02/15/20 Empagliflozin [Jardiance] 25 mg PO QAM 02/15/20 Fenofibrate 160 mg PO DAILY 02/15/20 Fluticasone Propionate 2 spray INTRANASAL DAILY PRN 02/15/20 Hydrochlorothiazide [Hctz] 25 mg PO DAILY 02/15/20 Insulin Lispro [Humalog KwikPen] See Protocol SQ 02/15/20 Metformin HCl [Metformin ER Osmotic] 1,000 mg PO BID 02/15/20 Pantoprazole Sodium 40 mg PO DAILY 02/15/20 Trazodone HCl 200 mg PO QHS 02/15/20 alcohol swabs 4 pad TOPICAL .qid #200 ea 02/20/20 insulin degludec 100 unit/mL (3 mL) subcutaneous pen 60 unit SC QHS #15 ml 02/20/20 Acetaminophen [Tylenol] 1,000 mg PO Q8 #60 tablet 03/05/20 Apixaban [Eliquis] 2.5 mg PO BID #42 tablet 03/05/20 Oxycodone [Oxyir] 5 mg PO Q4H PRN PRN #60 tab 03/05/20 The following prescriptions were given: Apixaban [Eliquis] 2.5 mg PO BID #42 tablet Oxycodone [Oxyir] 5 mg PO Q4H PRN PRN #60 tab PRN Reason: Pain Score 6-10 Prescription Printed Acetaminophen [Tylenol] 1,000 mg PO Q8 #60 tablet Orders to be completed after discharge: 12 Lead EKG [[facility]] Time Frame: 02/25/20, Location: None Selected Primary Care Physician: Asha Arreaga MD [Primary Care Provider] - Test Results: Test results from this visit will be discussed in further detail at your follow- up appointment, if applicable. Please Follow Up With: Mathieu Murphy DO When: 2 weeks
--- NOTE | 2020-03-05 12:38 | PCM.PN.ORT ---
Subjective: Patient complaint of pain bilateral knees no other complaints, denies fever chills nausea vomiting shortness of breath chest pain - Physical Exam Vitals/I&O's: Vital Signs Temp Pulse Resp BP Pulse Ox 98.6 F 74 18 128/70 H 95 03/05/20 09:53 03/05/20 09:53 03/05/20 09:53 03/05/20 09:53 03/05/20 09:53 Oxygen Flow Rate (L/min) 3 Oxygen Delivery Method Nasal Cannula Weight: 271 lb 4 oz Body Mass Index (BMI) 37.8 Finger Stick Blood Glucose 94 Intake and Output for Last 24 Hours 03/03/20 03/04/20 03/05/20 23:59 23:59 23:59 Intake Total 1777 / 2777 3928.75 / 3928.75 Output Total 475 / 1325 2350 / 2350 Balance 1302 / 1452 1578.75 / 1578.75 General: Alert, Oriented x3, Cooperative, No apparent distress Extremities: - - Dressings clean dry and intact neurovascular intact compartments soft bilateral lower extremities Microbiology Past 72 Hours 03/03/20 09:05 Interface Orders SARS-CoV-2 Antigen (Rapid) - Final Laboratory Results 03/04/20 15:46: POC Glucose 151 H 03/04/20 17:20: POC Glucose 142 H 03/04/20 22:09: POC Glucose 210 H 03/05/20 05:10: WBC 13.3 H, RBC 3.77 L, Hgb 10.9 L, Hct 33.8 L, MCV 89.7, MCH 28.9, MCHC 32.2, RDW Std Deviation 45.6 H, RDW Coeff of Eliezer 14.1, Plt Count 445, MPV 9.6 03/05/20 05:10: Sodium 140, Potassium 4.2, Chloride 107, Carbon Dioxide 30.0, Anion Gap 3 L, BUN 16, Creatinine 0.84, Estim Creat Clear Calc 114.54, Est GFR (MDRD) Af Amer 124, Est GFR (MDRD) Non-Af 103, BUN/Creatinine Ratio 18.9, Glucose 194 H, Calcium 8.2 L 03/05/20 06:53: POC Glucose 212 H 03/05/20 11:21: POC Glucose 259 H Current Medications Acetaminophen (Acetaminophen 500 Mg Tablet) 1,000 mg PO Q8 [facility] Last Admin: 03/05/20 06:49 Dose: 1,000 mg Documented by: Amlodipine Besylate (Amlodipine 10 Mg Tablet) 10 mg PO DAILY [facility] Last Admin: 03/05/20 09:14 Dose: 10 mg Documented by: Apixaban (Apixaban 2.5 Mg Tablet) 2.5 mg PO BID [facility] Last Admin: 03/05/20 09:14 Dose: 2.5 mg Documented by: Buspirone HCl (Buspirone 15 Mg Tablet) 30 mg PO BID [facility] Last Admin: 03/05/20 09:14 Dose: 30 mg Documented by: Divalproex Sodium (Divalproex (Er) 500 Mg Tablet) 1,000 mg PO QHS [facility] Last Admin: 03/04/20 22:11 Dose: 1,000 mg Documented by: Doxazosin Mesylate (Doxazosin 1 Mg Tablet) 2 mg PO QHS [facility] Last Admin: 03/04/20 22:14 Dose: 1 mg Documented by: Duloxetine HCl (Duloxetine Hcl 60 Mg Capsule) 60 mg PO QHS [facility] Last Admin: 03/04/20 22:14 Dose: 60 mg Documented by: [facility]ibrate ([facility] 145 Mg Tablet) [facility] Last Admin: 03/05/20 07:33 Dose: 145 mg Documented by: Hydrochlorothiazide (Hydrochlorothiazide 25 Mg Tablet) 25 mg PO DAILY [facility] Last Admin: 03/05/20 09:15 Dose: 25 mg Documented by: Hydromorphone HCl (Hydromorphone 0.5 Mg/0.5 Ml Syringe) 0.5 mg IV Q2H PRN PRN PRN Reason: Pain Score 6-10 Last Admin: 03/05/20 06:42 Dose: 0.5 mg Documented by: Cefazolin Sodium () 1 gm in 50 mls @ 100 mls/hr IV Q8 [facility] Last Infusion: 03/05/20 06:06 Dose: Infused Documented by: Insulin Glargine (Insulin Gl[facility]ine 100 Units/Ml Pen) [facility] Last Admin: 03/04/20 22:23 Dose: 60 units Documented by: Insulin Human Lispro (Insulin Lispro 100 Unit/Ml Insuln.Pen) 0 unit SC [facility]; Protocol Last Admin: 03/05/20 12:27 Dose: 2 units Documented by: Ketorolac Tromethamine (Ketorolac 30 Mg/Ml Syringe) 15 mg IV Q6H PRN PRN PRN Reason: Pain Score 1-5 Stop: 03/06/20 15:12 Non-Formulary Medication (Dextroamphetamine/Amphetamine [Mydayis Er 50 Mg Capsule]) 50 mg PO DAILY [facility] Ondansetron HCl (Ondansetron 4 Mg/2 Ml Vial) 4 mg IV Q6H PRN PRN PRN Reason: NAUSEA Oxycodone HCl (Oxycodone 5 Mg Tablet) 5 - 10 mg PO Q4H PRN PRN PRN Reason: Pain Score 4-10 Last Admin: 03/05/20 10:13 Dose: 10 mg Documented by: Oxycodone HCl (Oxycodone 5 Mg Tablet) 15 mg PO Q4H PRN PRN PRN Reason: Pain Score 6-10 Pantoprazole Sodium (Pantoprazole Sodium 40 Mg Tablet) 40 mg PO DAILY [facility] Last Admin: 03/05/20 09:15 Dose: 40 mg Documented by: Senna/Docusate Sodium (Senna/Docusate Sodium 1 Tablet) 2 tablet PO BID [facility] Last Admin: 03/05/20 09:15 Dose: 2 tablet Documented by: Sodium Chloride (0.9% Saline Lock 10 Ml Syringe) 10 - 40 ml IV UD PRN PRN Reason: SALINE FLUSH Trazodone HCl (Trazodone 100 Mg Tablet) 200 mg PO QHS [facility] Last Admin: 03/04/20 22:13 Dose: 200 mg Documented by: Medical Necessity - Tobacco Use Smoking Status: Former smoker Assessment/Plan All Active Problems (Last Reviewed 01/24/20 @ 14:24 by Adrianna Coats) Primary osteoarthritis of right knee (Acute) Primary osteoarthritis of left knee (Acute) Segmental and somatic dysfunction of thoracic region (Acute) Segmental and somatic dysfunction of cervical region (Acute) Segmental and somatic dysfunction of lumbar region (Acute) Shortness of breath (Acute) History of amputation (Resolved) 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 He would benefit from continued physical therapy before returning home. He will be set up with discharge to custodial facility. I will increase his oxycodone to up to 15 mg every 4 hours as needed pain prescriptions printed he will continue his Eliquis 3 weeks he will follow-up in the office in 2.
--- NOTE | 2020-03-05 13:02 | CASEMGMT ---
Addendum entered by Sandra Olsen 03/05/20 15:59: COVID results are back, pt is negative. SCOUT faxed negative COVID results and COVID screening tool to Molly at [facility]. SCOUT accessed trip assist and arranged transportation via cot for 5:00pm. Transportation form completed and placed on SNF folder and copy on pt's chart. SCOUT updated RN and pt on transportation time. SCOUT placed a call to Molly at [facility] and updated her COVID is negative and transportation time. Plan: Discharge to [facility] skilled today with [facility] transporting via cot at 5:00pm Sandra Olsen PHLEBOTOMY SERVICES TECHNICIAN, CHIP BIN OPERATOR Addendum entered by Sandra Olsen 03/05/20 15:24: SCOUT received call from Molly at [facility] stating they are able to accept pt. Molly asked if pt was residing in detention as last time pt was discharged from [facility], their notes state pt was discharged to detention. SCOUT in to speak with pt. SCOUT introduced self and role at [facility]. Pt is alert and orientated. Pt states he has lived at his current address since he discharged from [facility] in April 2018. Pt denied ever residing in detention. SCOUT updated pt that [facility] is able to accept pt, will likely discharge today. Pt states understanding. SCOUT updated Molly on above information. SCOUT faxed completed discharge paperwork to [facility] including transfer to extended care facility, signed medication list, any scripts. Original in SNF folder and copy on pt's chart. SCOUT completed [facility] in [facility]. Original in SNF folder and copy on pt's chart. SCOUT spoke with RN. Pt can transport via cot. Pt had rapid COVID test done, should be resulted soon. SW to arrange transportation, will fax COVID results once available. Original Note: Social Work Note SCOUT updated that pt is requesting [facility] at discharge. SCOUT placed a call to Molly at [facility] and provided referral. Molly states pt's insurance caresource are waiving pre-certs so pt would admit to SNF today if [facility] is able to accept. SCOUT updated Molly that pt is medically cleared for discharge today. SCOUT faxed referral to [facility]. Molly states pt will need another COVID test. Plan: [facility] today pending acceptance Sandra Olsen PHLEBOTOMY SERVICES TECHNICIAN, CHIP BIN OPERATOR
[2020-03-05] MEDS: oxyCODONE 5 MG Tablet 15 MG PO (15:48)
[2020-03-05 15:49] VITALS: BP 133/80; PULSE 79; RESP 18; TEMP 36.2; O2SAT 94
[2020-03-05 16:25] LABS: Bedside Glucose 235 mg/dL (70-110)
--- NOTE | 2020-03-05 17:01 | PN_ITS ---
Subjective: Feels better today. Knees are little bit sore. He was a max 2 assist per nursing and he has been declined door before and would like to go back there if possible. Vitals/I&O's: Vital Signs Temp Pulse Resp BP Pulse Ox 97.2 F L 79 18 133/80 H 94 03/05/20 15:49 03/05/20 15:49 03/05/20 15:49 03/05/20 15:49 03/05/20 15:49 Oxygen Flow Rate (L/min) 3 Oxygen Delivery Method Room Air Weight: 271 lb 4 oz Body Mass Index (BMI) 37.8 Finger Stick Blood Glucose 94 Intake and Output for Last 24 Hours 03/03/20 03/04/20 03/05/20 23:59 23:59 23:59 Intake Total 1777 / 2777 3978.75 / 3978.75 Output Total 475 / 1325 2350 / 2350 Balance 1302 / 1452 1628.75 / 1628.75 General: Alert, Oriented x3, Cooperative, No apparent distress HEENT: Atraumatic, PERRLA, EOMI, Normocephalic Oral: Moist Mucosa Neck: Supple, No JVD Lungs: Clear to auscultation, Normal air movement, No rhonchi, No wheeze, No rales Cardiovascular: Regular rate, Regular Rhythm, Normal S1, Normal S2, No murmurs Abdomen: Soft, Non Tender, Non-Distended, No Hepato-splenomegaly Extremities: No edema, Capillary Refill Less than 3 Seconds Skin: No rashes, No breakdown, Incision - Dressing CDI Neurological: Neuro grossly intact, Sensory exam intact to light touch and pain Psych/Mental Status: Normal Affect, Appropriate Microbiology Past 72 Hours 03/05/20 14:50 Interface Orders SARS-CoV-2 Antigen (Rapid) - Final 03/03/20 09:05 Interface Orders SARS-CoV-2 Antigen (Rapid) - Final Laboratory Results 03/04/20 17:20: POC Glucose 142 H 03/04/20 22:09: POC Glucose 210 H 03/05/20 05:10: WBC 13.3 H, RBC 3.77 L, Hgb 10.9 L, Hct 33.8 L, MCV 89.7, MCH 28.9, MCHC 32.2, RDW Std Deviation 45.6 H, RDW Coeff of Eliezer 14.1, Plt Count 445, MPV 9.6 03/05/20 05:10: Sodium 140, Potassium 4.2, Chloride 107, Carbon Dioxide 30.0, Anion Gap 3 L, BUN 16, Creatinine 0.84, Estim Creat Clear Calc 114.54, Est GFR (MDRD) Af Amer 124, Est GFR (MDRD) Non-Af 103, BUN/Creatinine Ratio 18.9, Glu cose 194 H, Calcium 8.2 L 03/05/20 06:53: POC Glucose 212 H 03/05/20 11:21: POC Glucose 259 H 03/05/20 16:17: POC Glucose 235 H Current Medications Acetaminophen (Acetaminophen 500 Mg Tablet) 1,000 mg PO Q8 [facility] Last Admin: 03/05/20 14:41 Dose: 1,000 mg Documented by: Amlodipine Besylate (Amlodipine 10 Mg Tablet) 10 mg PO DAILY [facility] Last Admin: 03/05/20 09:14 Dose: 10 mg Documented by: Apixaban (Apixaban 2.5 Mg Tablet) 2.5 mg PO BID [facility] Last Admin: 03/05/20 09:14 Dose: 2.5 mg Documented by: Buspirone HCl (Buspirone 15 Mg Tablet) 30 mg PO BID [facility] Last Admin: 03/05/20 09:14 Dose: 30 mg Documented by: Divalproex Sodium (Divalproex (Er) 500 Mg Tablet) 1,000 mg PO QHS [facility] Last Admin: 03/04/20 22:11 Dose: 1,000 mg Documented by: Doxazosin Mesylate (Doxazosin 1 Mg Tablet) 2 mg PO QHS [facility] Last Admin: 03/04/20 22:14 Dose: 1 mg Documented by: Duloxetine HCl (Duloxetine Hcl 60 Mg Capsule) 60 mg PO QHS [facility] Last Admin: 03/04/20 22:14 Dose: 60 mg Documented by: Fenofibrate (Fenofibrate 145 Mg Tablet) [facility] Last Admin: 03/05/20 07:33 Dose: 145 mg Documented by: Hydrochlorothiazide (Hydrochlorothiazide 25 Mg Tablet) 25 mg PO DAILY [facility] Last Admin: 03/05/20 09:15 Dose: 25 mg Documented by: Hydromorphone HCl (Hydromorphone 0.5 Mg/0.5 Ml Syringe) 0.5 mg IV Q2H PRN PRN PRN Reason: Pain Score 6-10 Last Admin: 03/05/20 06:42 Dose: 0.5 mg Documented by: Cefazolin Sodium () 1 gm in 50 mls @ 100 mls/hr IV Q8 [facility] Last Infusion: 03/05/20 15:15 Dose: Infused Documented by: Insulin Glargine (Insulin Glargine 100 Units/Ml Pen) 60 units SC QHS [facility] Last Admin: 03/04/20 22:23 Dose: 60 units Documented by: Insulin Human Lispro (Insulin Lispro 100 Unit/Ml Insuln.Pen) 0 unit SC ACHS [facility]; Protocol Last Admin: 03/05/20 16:41 Dose: 2 units Documented by: Ketorolac Tromethamine (Ketorolac 30 Mg/Ml Syringe) 15 mg IV Q6H PRN PRN PRN Reason: Pain Score 1-5 Stop: 03/06/20 15:12 Non-Formulary Medication (Dextroamphetamine/Amphetamine [Mydayis Er 50 Mg Capsule]) 50 mg PO DAILY [facility] Ondansetron HCl (Ondansetron 4 Mg/2 Ml Vial) 4 mg IV Q6H PRN PRN PRN Reason: NAUSEA Oxycodone HCl (Oxycodone 5 Mg Tablet) 5 - 10 mg PO Q4H PRN PRN PRN Reason: Pain Score 4-5 Last Admin: 03/05/20 10:13 Dose: 10 mg Documented by: Oxycodone HCl (Oxycodone 5 Mg Tablet) 15 mg PO Q4H PRN PRN PRN Reason: Pain Score 6-10 Last Admin: 03/05/20 15:48 Dose: 15 mg Documented by: Pantoprazole Sodium (Pantoprazole Sodium 40 Mg Tablet) 40 mg PO DAILY [facility] Last Admin: 03/05/20 09:15 Dose: 40 mg Documented by: Senna/Docusate Sodium (Senna/Docusate Sodium 1 Tablet) 2 tablet PO BID [facility] Last Admin: 03/05/20 09:15 Dose: 2 tablet Documented by: Sodium Chloride (0.9% Saline Lock 10 Ml Syringe) 10 - 40 ml IV UD PRN PRN Reason: SALINE FLUSH Trazodone HCl (Trazodone 100 Mg Tablet) 200 mg PO QHS [facility] Last Admin: 03/04/20 22:13 Dose: 200 mg Documented by: STROKE Vital Signs/Narrative: Vital Signs Temp Pulse Resp BP Pulse Ox 03/05/20 15:49 97.2 F L 79 18 133/80 H 94 Medical Necessity - Tobacco Use Smoking Status: Former smoker Assessment/Plan All Active Problems (Last Reviewed 01/24/20 @ 14:24 by Adrianna Coats) Primary osteoarthritis of right knee (Acute) Primary osteoarthritis of left knee (Acute) Segmental and somatic dysfunction of thoracic region (Acute) Segmental and somatic dysfunction of cervical region (Acute) Segmental and somatic dysfunction of lumbar region (Acute) Shortness of breath (Acute) History of amputation (Resolved) 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 Bilateral knee arthritis status post bilateral total knee arthroplasty 03/04/2020 -He is needing max 2 person assist therefore will attempt to get him into a fdc facility -From a medical standpoint he is stable. His A1c was 6.2% -PT and OT -DVT prophylaxis per primary -Pain management per primary 2. DM 2 -A1c is stable at 6.2 -Continue with home insulin regimen as as well as his metformin -Continue with Jardiance 3. HTN/HLD -Blood pressures have been stable -Continue with his home blood pressure medications 4. Anxiety/depression -Stable -Continue with BuSpar, Depakote, Cymbalta 5. GERD -Stable -Continue with PPI DVT: [facility] Inpatient E&M: 78401 Subs Hosp L2
[2020-03-05 19:13] VITALS: BP 133/80; PULSE 79; RESP 18; TEMP 36.8; O2SAT 98
== END 2020-03-05 19:40 | disposition skilled nursing facility (03) | DRG 326 ==
LOC: ACINP 08:20 → MS3 03-05 07:07
PROVIDERS: Anesthesiology; Admitting Provider Orthopaedic Surgery; PCP Internal Medicine; Referring Provider Orthopaedic Surgery; Visit Provider Family Medicine
PROC: 0SRD0J9 Replacement of Left Knee Joint with Synthetic Substitute, Cemented, Open Approach (ICD-10-PCS; principal; 2020-03-04 10:00)
DX: M17.0 Bilateral primary osteoarthritis of knee (principal); E11.9 Type 2 diabetes mellitus without complications; E78.5 Hyperlipidemia, unspecified; I10 Essential (primary) hypertension; F32.9 Major depressive disorder, single episode, unspecified; F41.9 Anxiety disorder, unspecified; K21.9 Gastro-esophageal reflux disease without esophagitis; G40.909 Epilepsy, unspecified, not intractable, without status epilepticus; Z72.0 Tobacco use; Z79.4 Long term (current) use of insulin; Z79.01 Long term (current) use of anticoagulants; Z90.81 Acquired absence of spleen
CPT/HCPCS: 36415; 71046; 73560; 80048; 82962; 83036; 83735; 85025; 85027; 85610; 85730; 86850; 86900; 86901; 87081; 87426; 93005; 97110; 97116; 97162; 97166; 97535; 99251; C1776; C9803; J7120; G0463; J0702; J2405; J3490

== ENCOUNTER 2020-04-21 12:00 | Outpatient (RCR) | payer MEDICAID, SELFPAY ==
[2020-03-04 17:02] VITALS: BMI 37.8
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
--- NOTE | 2020-04-21 12:36 | HP.PTDCSUM ---
It has been my pleasure to treat OLGA PLASENCIA referred by Dr. Mathieu Murphy DO, with the diagnosis of B TKA 03/04 for a total of 13 visit(s). Discharge Date: 04/21/20 Please see the following information for a summary of their discharge status. Subjective: Pain britany is mostly on stairs, up 4/10 adn down 6/10. R>L. L leg feels stronger. Will get new midfoot orthotic from [employer]. May have faovred R leg due to this. Pain at rest is slight on the R and not on the left. 2/10. Sleep is OK with meds. Walking in community is OK with knees but uses electric cart due to foot. Doing alot around the house as he lives in three levels and does steps alot. Not employed. Takes online IT course. Has to get up frequently when studying online IT course but better than prior to surgery. To doctor in 4 weeks. Ex at home include steps adn stretching. Feels like he can do what he needs to do it at home. L knee Pain Intensity (Out of 10): 0 R knee Pain Intensity (Out of 10): 2 % Improvement: 70 Objective/Function: 41 WOMAC score. 6 second TUG. patella 16 inches girth and 6 sp is 21 inch B. Knee AROM 116 R adn 118 L. ) B ext. 0 ext lag with SLR. knee felxion MMT R41 with pain and R 70. Ext strenght 64# R and 76#. Walking well without antalgia. Steps are reciprocal without rail but weaker noticeably on R. Overall doing very wella dn can continue I at home with compliance. Goal 1:: Walk comunity without AD safely Goal Progress: Goal Met Goal 2:: Steps reciprocal with ;one rail I Goal Progress: Goal Met Goal 3:: 0-115 aROM to allow for full function without pain Goal Progress: Goal Met Goal 4:: Jean Marie nlevel 0-2/10 at all times Goal Progress: Progressing Goal 5:: I approp HEP to minimize future problems Goal Progress: Goal Met Plan: d/c, pt request, to doctor in 4 weeks. Will continue HEP in meantime. If there are questions or concerns regarding this patient's physical therapy, please feel free to call me at [phone]. Thank you for the referral of this patient. Sincerely, Bill Han, DPT, OCS, CSCS
== END 2020-04-21 19:00 | disposition home or self-care (01) ==
LOC: PT 12:00
PROVIDERS: PCP Internal Medicine; Referring Provider Orthopaedic Surgery; Visit Provider Orthopaedic Surgery
DX: Z47.1 Aftercare following joint replacement surgery (principal); Z96.653 Presence of artificial knee joint, bilateral
CPT/HCPCS: 97110; 97162; 97164

== ENCOUNTER 2020-11-05 15:00 | Outpatient (RCR) | payer MEDICAID, SELFPAY ==
[2020-05-27 14:13] VITALS: BMI 33.7
--- NOTE | 2020-08-27 10:37 | HP.PTEVAL_ITS ---
Patient's Visit Information OLGA PLASENCIA is a 50 year old M referred to Physical Therapy by Dr. Mathieu Murphy DO with a diagnosis of R knee pain post R TKA. Date of Evaluation: 08/27/20 Physical Therapist: Hunter Wallace, PT, ATC - Visit Plan Frequency: 2-3x /Week Duration: 4-6 Weeks Plan: R knee stretching and strengthening, core stab ex's, bike, and HEP. CP for pain - Subjective DOS: 03/04/2020. Pt reports he had a bilat TKA performed at that time. Pt reports he had severe pain in B knees after having the surgery. Pt reports he had 10 PT sessions performed at that time, but then he had issues with his R LE prosthetic (due to partial R foot amputation) and had to stop PT at that time. Pt reports he attempted to perform a HEP from that time on, but was not very compliant. Pt reports he is back at this time secondary to LE weakness and stiffness. Pt is unemployed at this time. 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 No LE tingling or numbness at this time. No sleep difficulty secondary to pain. 0/10 pain at rest, 5/10 pain at worst (after getting his knee drained) - Pain R knee Pain Intensity (Out of 10): 0 Pain Intensity Range: 5 - Objective Neuro: B LE sensation is WNL to lgiht touch. ROM: R knee ROM 0-110, L knee 0- 120. MMT: R knee is grossly 4-/5 throughout and is painful with testing. L knee 5/5 throughout. Girth at joint line. B knees are 38 cm - Goals Goal 1:: Decrease R knee pain x 50% to aid with IADL's Goal Time Frame: 4-6 Weeks Goal 2:: Increase R knee flexion ROM x 10 degrees to aid with restoring ability to perform squatting activity again Goal Time Frame: 4-6 Weeks Goal 3:: Increase R knee strength x 1 grade to aid with stair negotiation Goal Time Frame: 4-6 Weeks Goal 4:: I with HEP Goal Time Frame: 4-6 Weeks - Rehabilitation Potential Physical Therapy Diagnosis: Pt has residual weakness, limited ROM, and pain in R knee from R TKA Rehabilitation Potential: Good - Anticipated Interventions Patient/Client Instruction: Educate patient on: Condition, Plan of Care For the Purpose of:: To improve self management Therapeutic Exercise to Include: Strength training, Endurance training, Balance training, Flexibilty training, Gait and locomotor training, Active ROM, Dynamic Lumbar Stabilization For the Purpose of:: To decrease pain, To increase ROM, To improve muscle performance and motor function Cryotherapy (ice pack, ice massage): Yes For the Purpose of:: To decrease pain Thank you for the opportunity to evaluate your patient. For Medicare and Medicare HMO plans, please review the plan of care and approve it. It will need to be FAXED BACK to us at [phone] for Medicare purposes. For Medicare only, by signing this I certify the plan of care. Please let me know if there are questions or concerns regarding this plan of care. Physician Signature: Date:
--- NOTE | 2020-10-01 15:05 | HP.PTREVAL ---
Dr. Mathieu Murphy, DO, It has been my pleasure to treat OLGA PLASENCIA over the last 9 visits for R knee pain post R TKA. Please see the progress note below for an update on the physical therapy plan of care! Subjective: I havent been stretching like I should Objective/Function: R knee pain ranges from 0-8/10. R knee ROM: 0-110. R knee MMT: 4-/5. Pt is progressing well toward Rx goals Plan Plan: R knee stretching and strengthening, core stab ex's, bike, and HEP. CP for pain Goals Goal 1:: Decrease R knee pain x 50% to aid with IADL's Goal Time Frame: 4-6 Weeks Goal Progress: Progressing Goal 2:: Increase R knee flexion ROM x 10 degrees to aid with restoring ability to perform squatting activity again Goal Time Frame: 4-6 Weeks Goal Progress: Progressing Goal 3:: Increase R knee strength x 1 grade to aid with stair negotiation Goal Time Frame: 4-6 Weeks Goal Progress: Progressing Goal 4:: I with HEP Goal Time Frame: 4-6 Weeks Goal Progress: Progressing Anticipated Interventions Patient/Client Instruction: Educate patient on: Condition, Plan of Care For the Purpose of:: To improve self management Therapeutic Exercise to Include: Strength training, Endurance training, Balance training, Flexibilty training, Gait and locomotor training, Active ROM, Dynamic Lumbar Stabilization For the Purpose of:: To decrease pain, To increase ROM, To improve muscle performance and motor function Cryotherapy (ice pack, ice massage): Yes For the Purpose of:: To decrease pain Please do not hesitate to contact me at [phone] by phone or if you have questions or concerns regarding this new plan of care! Sincerely, Hunter Wallace, PT, ATC
--- NOTE | 2020-11-05 15:29 | HP.PTDCSUM ---
It has been my pleasure to treat OGLA PLASENCIA referred by Dr. Mathieu Murphy DO, with the diagnosis of R knee pain post R TKA for a total of 15 visit(s). Discharge Date: Please see the following information for a summary of their discharge status. Subjective: Pt reports he is ready for discharge R knee Pain Intensity (Out of 10): 0 Lumbar Spine Pain Intensity (Out of 10): 7 LLE Pain Intensity (Out of 10): 0 % Improvement: 50 Objective/Function: R knee pain 0/10 currently, increases to 7/10 at worst. R knee MMT: flex= 4/5 and painful, ext= 5/5. R knee ROM: 0-115. Pt is now I with HEP Goal 1:: Decrease R knee pain x 50% to aid with IADL's Goal Progress: Goal Met Goal 2:: Increase R knee flexion ROM x 10 degrees to aid with restoring ability to perform squatting activity again Goal Progress: Goal Met Goal 3:: Increase R knee strength x 1 grade to aid with stair negotiation Goal Progress: Goal Met Goal 4:: I with HEP Goal Progress: Goal Met Plan: Discharge If there are questions or concerns regarding this patient's physical therapy, please feel free to call me at [phone]. Thank you for the referral of this patient. Sincerely, Hunter Wallace, PT, ATC Balance/Gait/Functional tests - Balance/Special Test Scores Lower Extremity Functional Score: 23
== END 2020-11-05 19:00 | disposition home or self-care (01) ==
LOC: PT 15:00
PROVIDERS: PCP Internal Medicine; Referring Provider Orthopaedic Surgery; Visit Provider Orthopaedic Surgery
DX: Z47.1 Aftercare following joint replacement surgery (principal); Z96.651 Presence of right artificial knee joint
CPT/HCPCS: 97110; 97161; 97164

== ENCOUNTER 2021-03-31 11:00 | Outpatient (RCR) | payer MEDICAID, SELFPAY ==
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
--- NOTE | 2021-03-11 10:51 | HP.PT.NRP ---
OLGA PLASENCIA was seen in my office for initial evaluation on 02/02/21. The following Plan of Care was established for this patient: Initial Frequency: 1x/Week Initial Duration: 6 Weeks Patient/Client Instruction: Educate patient on: Condition, Plan of Care, Benefits of Fitness Program For the Purpose of:: To decrease pain, To increase ROM, To improve muscle performance and motor function, To improve performance and independence with ADL's Therapeutic Exercise to Include: Strength training, Postural training, Dynamic Lumbar Stabilization, Scapular Strength/Stabilization For the Purpose of:: To decrease pain, To improve ability to perform ADL's, To improve health and function, To improve self management Manual Therapy Techniques to Include: Massage, Mobilization, Manipulation, Soft tissue mobilization For the Purpose of:: To decrease pain, To improve muscle performance and motor function, To improve ability to perform ADL's, To assume or resume ADL's Thermo therapy (hot pack): Yes For the Purpose of:: To decrease pain This patient was last seen in our office 02/02/21. Pertinent comments regarding their Physical therapy will appear below: Pt. was seen for his initial evaluation with lumbar DDD. Pt. was given exercises to complete at home, by patient request. He was to follow up with PT if needed. He has not been seen in ~6 weeks and will be DC from PT at this point in time. At this point I will be discontinuing this patient from physical therapy. I would be happy to see this patient again in the future if found appropriate by the physician. Thank you! Sam Hansen, DPT Balance/Gait/Functional tests - Balance/Special Test Scores Oswestry Low Back Score: 27
--- NOTE | 2021-04-01 15:32 | HP.PTDCSUM ---
It has been my pleasure to treat OLGA PLASENCIA referred by Dr. Bladimir Hernandez DO, with the diagnosis of Lumbar DDD. spondylolisthesis for a total of 2 visit(s). Discharge Date: Please see the following information for a summary of their discharge status. Subjective: Pt. arrives today with reports of no improvement in his symptoms. He has been doing his exercises frequently including core stability and stretching exercises. He did report injections did help the pain in his legs, but did not change his back pain. He previously did have a nerve ablation which was helpful for this back. He reports no improvement with PT exercises. Back Pain Intensity (Out of 10): 8 % Improvement: 0 Objective/Function: ROM: Lumbar spine: flexion min loss NE, ext mod loss increase worse, SB mod loss bilat increase, rotation mod loss bilat increase. Tight HS noted. MMT: Pt. has good strength throughout BLEs. No myotomal weakness noted. Core strength: poor+. Pt. has fairly normal gait pattern without AD. He reports that his legs do not give out on him. STAIRS: normal pattern increase NW. Normal sensation in BLEs. PAs to lumbar spine: painful at L3-L5. No hyper mobility noted. Pt. was doing exercises with minimal effect to his symptoms. We focused on core stability and ROM. No improvement, in fact in some ways made his pain worse. Due to no progress with PT, possible need for further imaging. Goal 1:: Pt will be independent with HEP Goal Progress: Goal Met Goal 2:: STG: Pt will be able to wash dishes with 0-2 pain Goal Progress: Not Progressing Goal 3:: LTG: Pt will improve all glut med, glut max to 5/5 bilaterally. Goal Progress: Progressing Goal 4:: LTG: Pt will improve leg lowering test to 45 degrees to indicate improved abdominal strength to improve posture. Goal Progress: Not Progressing Plan: DC back to physician due to no progress. If there are questions or concerns regarding this patient's physical therapy, please feel free to call me at [phone]. Thank you for the referral of this patient. Sincerely, Sam Tiwari Sipos, DPT Balance/Gait/Functional tests - Balance/Special Test Scores Oswestry Low Back Score: 24
== END 2021-03-31 19:00 | disposition home or self-care (01) ==
LOC: PT 11:00
PROVIDERS: PCP Internal Medicine; Referring Provider Orthopaedic Surgery; Visit Provider Orthopaedic Surgery
DX: M43.16 Spondylolisthesis, lumbar region (principal); M51.36 Other intervertebral disc degeneration, lumbar region
CPT/HCPCS: 97110; 97161; 97164

== ENCOUNTER 2021-04-01 06:49 | Outpatient (CLI) | payer MEDICAID, SELFPAY ==
--- NOTE | 2021-04-01 06:51 | CT_ITS ---
STUDY: CT ABDOMEN AND PELVIS WITH CONTRAST REASON FOR EXAM: Male, 50 years old. Ventral hernia, abdominal pain -- Dr. Bender would like PO and IV contrast RADIATION DOSAGE (If Supplied By Facility): CTDIvol = ( 14.68 ) mGy, DLP = ( 1132.63 ) mGycm TECHNIQUE: Transaxial images were obtained from the dome of the diaphragm to the symphysis pubis with oral contrast. Oral and amp; IV Gastrografin and amp; 100mL Isovue-370 was administered. Sagittal and coronal images were reconstructed. Individualized dose optimization techniques were used for this CT. COMPARISON: Comparison is made with prior study dated 01/04/2018. FINDINGS: Minimal increased linear markings at the left lung base suggestive of either linear atelectasis and/or scarring. The visualized portions of the heart are within normal limits. There is decreased attenuation of the liver consistent with steatosis. Hepatomegaly. The gallbladder is contracted. Normal spleen. Normal pancreas. Normal bilateral adrenal glands. Normal right kidney. Normal left kidney. Normal visualized stomach. Normal small intestine. Normal colon. The appendix is visualized and appears normal. There is scattered atherosclerotic calcification of the abdominal aorta, without a demonstrated aneurysm. Normal inferior vena cava. Normal retroperitoneum. Small anterior ventral hernia just cephalad to the umbilicus containing fat. The neck of the hernia measures 2.5 cm. Is also evidence of a small umbilical hernia containing fat. Nondilated small bowel loops abut the hernia. There is diastases of the rectus abdominal muscles. Normal abdominal wall. There are mild degenerative changes of the visualized lumbar spine. Mild anterior listhesis of L5 on S1 with spondylolysis of the pars interarticularis of the L5 vertebrae. CT/Abdomen/Pelvis WITH Contrast IMPRESSION: Small ventral hernia containing fat. There is a small anterior ventral hernia just cephalad to the umbilicus. The neck measures 2.5 cm. Electronically Signed: Karan Talbert MD at 10:52 EST , Service support ,
[2021-04-01 07:01] LABS: CREATININE FINGERSTICK 0.7 mg/dL (0.70-1.30); EGFR FINGERSTICK > 60.0000 mL/min (>60)
== END 2021-04-01 23:59 | disposition short-term general hospital (02) ==
LOC: CT 06:49
PROVIDERS: PCP Internal Medicine; Referring Provider Surgery; Visit Provider Surgery
DX: K43.9 Ventral hernia without obstruction or gangrene (principal)
CPT/HCPCS: 74177; Q9967

== ENCOUNTER 2021-05-13 07:44 | Outpatient (CLI) | payer MEDICAID, SELFPAY ==
--- NOTE | 2021-05-13 07:45 | MRI_ITS ---
STUDY: MRI LUMBAR SPINE WITHOUT CONTRAST REASON FOR EXAM: Male, 51 years old. pain TECHNIQUE: Standardized fat and water weighted pulse sequences were obtained in the sagittal and axial planes. COMPARISON: X-ray dated 11/12/2020 FINDINGS: There is straightening of the normal lumbar lordosis. There is no substantial scoliosis. Normal conus medullaris that terminates at the L1. L1-2: Normal endplates. Normal disc height, hydration and morphology. Normal bilateral facet joints. Normal central canal and bilateral lateral recesses. Normal bilateral intervertebral neural foramina. L2-3: There is minimal disc space narrowing and endplate spondylosis. There is no significant disc herniation, central canal or foraminal stenosis L3-4: There is minimal disc space narrowing and endplate spondylosis. There is no significant disc herniation, central canal or foraminal stenosis L4-5: There is severe disc space narrowing, endplates spondylosis and fatty replacement. Moderate disc osteophyte complex and facet arthropathy asymmetric to the left with moderate left foraminal stenosis. No significant central canal or right foraminal stenosis. L5-S1: There is severe disc space narrowing, endplates spondylosis and fatty replacement. Moderate disc osteophyte complex and facet arthropathy without significant central canal stenosis. Spondylolysis with grade 1 anterolisthesis. Moderate right and moderate left foraminal stenosis. Normal visualized sacral ala. MRI/Spine Lumbar (Routine) IMPRESSION: L4/L5: Moderate left foraminal stenosis. L5/S1: Spondylolysis. Grade 1 anterolisthesis. Moderate right and moderate left foraminal stenosis. Electronically Signed: Monroe Pressley MD at 8:11 EST ,
== END 2021-05-13 23:59 | disposition home or self-care (01) ==
LOC: MRI 07:45
PROVIDERS: PCP Internal Medicine; Referring Provider Orthopaedic Surgery; Visit Provider Orthopaedic Surgery
DX: M51.36 Other intervertebral disc degeneration, lumbar region (principal); M54.50 Low back pain, unspecified; G89.29 Other chronic pain
CPT/HCPCS: 72148

== ENCOUNTER 2021-06-23 11:15 | Outpatient (CLI) | payer MEDICAID, SELFPAY ==
[2021-06-23 12:17] LABS: Absolute Lymphocyte Count 2.81 X10^3/uL (0.83-4.51); Absolute Neutrophil Count 3.5 X10^3/uL (2.0-7.7); Basophil# 0.09 X10^3/uL; Basophil% 1.1 % (0-1); Eosinophil# 0.24 X10^3/uL; Eosinophils% 3.1 % (0-5); Hematocrit 45.6 % (40-54); Hemoglobin 15.1 g/dL (13.0-16.5); Lymphocyte # 2.81 X10^3/ul (0.83-4.51); Lymphocyte % 35.8 % (19-41); Mean Corp Hgb Conc 33.1 g/dL (32-36); Mean Corpuscular Hgb 29.8 pg (27.0-32.0); Mean Corpuscular Volume 89.9 fL (80-94); Mean Platelet Vol. 10.5 fl (6.2-12.0); Monocyte# 1.24 X10^3/uL; Monocyte% 15.8 % (0-10); NRBC Flagged by Analyzer 0 % (0-5); Neutrophil # 3.45 X10^3/uL (2.7-7.7); Neutrophil % 43.9 % (47-70); Platelet Count 513 K/mm3 (150-450); RBC Distribution Width CV 13.8 % (11.6-14.6); RBC Distribution Width SD 45.2 fl (35.1-43.9); Red Blood Count 5.07 M/mm3 (4.6-6.2); White Blood Count 7.9 K/mm3 (4.4-11.0)
[2021-06-23 13:25] LABS: ALB/GLOB Ratio 0.9 RATIO (0.9-2.4); AST(SGOT) 19 U/L (15-37); Alanine Aminotransfer ALT/SGPT 43 U/L (16-61); Albumin, Serum 3.6 g/dL (3.2-5.0); Alkaline Phosphatase 80 U/L (45-117); Anion Gap 9 (5-15); BUN 16 mg/dL (7-18); BUN/Creat Ratio 13.8 RATIO (10-20); Calcium,Total 9.4 mg/dL (8.5-10.1); Chloride 96 mmol/L (98-107); Cholesterol 219 mg/dL (200); Creatinine, Serum 1.16 mg/dL (0.70-1.30); EST Glomerular Filtration Rate 71 mL/min (>60); Est Glom Filt Rate - Afr Amer 86 mL/min (>60); Globulin 3.9 g/dL (2.2-4.2); Glucose 447 mg/dL (74-106); High Density Lipoprotein 38 mg/dL; Potassium 3.8 mmol/L (3.5-5.1); Protein, Total 7.5 g/dL (6.4-8.2); Sodium Level 133 mmol/L (136-145); Thyroid Stim Hormone (TSH) 4.56 uIU/mL (0.358-3.74); Triglycerides 212 mg/dL; Very Low Density Lipoprotein 42 mg/dL (5-40)
== END 2021-06-23 23:59 | disposition home or self-care (01) ==
LOC: BIMLAB 11:15
PROVIDERS: PCP Internal Medicine; Referring Provider Physician Assistant; Visit Provider Physician Assistant
DX: E11.9 Type 2 diabetes mellitus without complications (principal); I10 Essential (primary) hypertension; E78.5 Hyperlipidemia, unspecified; F41.8 Other specified anxiety disorders
CPT/HCPCS: 36415; 80053; 80061; 84443; 85025

== ENCOUNTER → 2021-10-30 | Outpatient (CLI) | payer MEDICAID, SELFPAY ==
[2021-10-30 10:44] LABS: Bacteria 0 SEEN /hpf (None Seen); Mucous, Urine 0 SEEN /hpf (<or=2+); Red Blood Cells-Urine 0 SEEN /hpf (0-5); Squamous Epithelial Cells - UA 0 SEEN /hpf (0-5); White Blood Cells 0 SEEN /hpf (0-5)
[2021-10-30 12:13] LABS: Color, Urine Straw (Yellow); Glucose, Dipstick 1000 mg/dl (Normal); Ketone-Dipstick 5 mg/dl (Negative); Leukocyte Esterase-Dipstick Negative /ul (Negative); Nitrite-Dipstick Negative (Negative); Occult Blood-Urine Negative /ul (Negative); Protein-Dipstick Negative (Negative); Specific Gravity, Urine 1.005 (1.002-1.030); Urine Bilirubin Dipstick Negative (Negative); Urine Clarity Clear (Clear); Urine Urobilinogen Normal (Normal)
[2021-10-30 12:50] LABS: Creatinine, Urine (random) < 13.00 mg/dL (NO RANGE EST.); Microalbumin,Random Urine < 5.0 mg/L (NO RANGE EST.)
[2021-10-30 12:55] LABS: ALB/GLOB Ratio 0.9 RATIO (0.9-2.4); AST(SGOT) 10 U/L (15-37); Alanine Aminotransfer ALT/SGPT 31 U/L (16-61); Albumin, Serum 4.1 g/dL (3.2-5.0); Alkaline Phosphatase 80 U/L (45-117); Anion Gap 9 (5-15); BUN 26 mg/dL (7-18); BUN/Creat Ratio 22.4 RATIO (10-20); Calcium,Total 10.2 mg/dL (8.5-10.1); Chloride 92 mmol/L (98-107); Creatinine, Serum 1.16 mg/dL (0.70-1.30); EST Glomerular Filtration Rate 71 mL/min (>60); Est Glom Filt Rate - Afr Amer 86 mL/min (>60); Globulin 4.5 g/dL (2.2-4.2); Glucose 471 mg/dL (74-106); PSA,Total - Annual Screen 0.48 ng/mL (0.00-4.00); Potassium 4.2 mmol/L (3.5-5.1); Protein, Total 8.6 g/dL (6.4-8.2); Sodium Level 132 mmol/L (136-145)
== END | disposition home or self-care (01) ==
LOC: BIMLAB 10:41
PROVIDERS: PCP Internal Medicine; Referring Provider Internal Medicine; Visit Provider Internal Medicine
DX: R39.15 Urgency of urination (principal); E11.9 Type 2 diabetes mellitus without complications
CPT/HCPCS: 84153; 36415; 80053; 81001; 82043; 82570; G0103

== ENCOUNTER → 2021-11-19 | Outpatient (CLI) | payer MEDICAID, SELFPAY ==
--- NOTE | 2021-11-19 10:02 | RAD_ITS ---
STUDY: X-RAY - CERVICAL SPINE REASON FOR EXAM: Male, 51 years old. Neck pain and headache TECHNIQUE: 3 view(s) of the cervical spine were obtained. COMPARISON: None FINDINGS: Normal anterior atlantoaxial articulation. Normal odontoid process. There is straightening of the normal cervical lordosis. There is multi-level endplate spondylosis. There is multi-level degenerative disc disease with multilevel disc space narrowing. The soft tissue structures are unremarkable. RAD/Cerv Spine 2 or 3 Views IMPRESSION: Multilevel degenerative changes, no acute findings Electronically Signed: Jasper Prince MD at 15:22 EDT ,
== END | disposition home or self-care (01) ==
LOC: RAD 10:00
PROVIDERS: PCP Internal Medicine; Referring Provider Anesthesiology Pain Medicine; Visit Provider Anesthesiology Pain Medicine
DX: M47.812 Spondylosis without myelopathy or radiculopathy, cervical region (principal); M50.30 Other cervical disc degeneration, unspecified cervical region
CPT/HCPCS: 72040

== ENCOUNTER → 2022-07-07 | Outpatient (CLI) | payer MEDICAID, SELFPAY ==
[2022-07-07 15:26] LABS: Absolute Lymphocyte Count 2.33 X10^3/uL (0.83-4.51); Absolute Neutrophil Count 3.4 X10^3/uL (2.0-7.7); Basophil# 0.09 X10^3/uL; Basophil% 1.3 % (0-1); Eosinophil# 0.23 X10^3/uL; Eosinophils% 3.2 % (0-5); Hematocrit 49.5 % (40-54); Hemoglobin 15.8 g/dL (13.0-16.5); Lymphocyte # 2.33 X10^3/ul (0.83-4.51); Lymphocyte % 32.7 % (19-41); Mean Corp Hgb Conc 31.9 g/dL (32-36); Mean Corpuscular Volume 90.8 fL (80-94); Mean Platelet Vol. 9.6 fl (6.2-12.0); Monocyte% 15.4 % (0-10); NRBC Flagged by Analyzer 0 % (0-5); Neutrophil # 3.36 X10^3/uL (2.7-7.7); Neutrophil % 47.1 % (47-70); Platelet Count 593 K/mm3 (150-450); RBC Distribution Width CV 13.5 % (11.6-14.6); RBC Distribution Width SD 45.1 fl (35.1-43.9); Red Blood Count 5.45 M/mm3 (4.6-6.2); White Blood Count 7.1 K/mm3 (4.4-11.0)
[2022-07-07 16:13] LABS: ALB/GLOB Ratio 1.1 RATIO (0.9-2.4); AST(SGOT) 24 U/L (15-37); Alanine Aminotransfer ALT/SGPT 39 U/L (16-61); Alkaline Phosphatase 75 U/L (45-117); Anion Gap 5 (5-15); BUN 18 mg/dL (7-18); BUN/Creat Ratio 18.3 RATIO (10-20); Calcium,Total 9.7 mg/dL (8.5-10.1); Chloride 101 mmol/L (98-107); Cholesterol 211 mg/dL (200); Creatinine, Serum 0.98 mg/dL (0.70-1.30); EST Glomerular Filtration Rate 85 mL/min (>60); Est Glom Filt Rate - Afr Amer 103 mL/min (>60); Globulin 3.7 g/dL (2.2-4.2); Glucose 152 mg/dL (74-106); High Density Lipoprotein 58 mg/dL; Potassium 3.7 mmol/L (3.5-5.1); Protein, Total 7.7 g/dL (6.4-8.2); Sodium Level 136 mmol/L (136-145); Triglycerides 80 mg/dL; Very Low Density Lipoprotein 16 mg/dL (5-40)
[2022-07-07 16:24] LABS: Microalbumin,Random Urine 5.4 mg/L (NO RANGE EST.); Microalbumin:Creatinine Ratio 18.4 mg/g CRE (<30 mg/g CRE)
== END | disposition home or self-care (01) ==
LOC: IMMUN 11:57 → BIMLAB 11:58
PROVIDERS: PCP Internal Medicine; Referring Provider Internal Medicine; Visit Provider Internal Medicine
DX: I10 Essential (primary) hypertension (principal); E11.9 Type 2 diabetes mellitus without complications; E78.5 Hyperlipidemia, unspecified
CPT/HCPCS: 36415; 80053; 80061; 82043; 82570; 85025

== ENCOUNTER → 2022-08-06 | Outpatient (CLI) | payer MEDICAID, SELFPAY | END | disposition home or self-care (01) | PROVIDERS: PCP Internal Medicine; Visit Provider Internal Medicine Critical Care Medicine | DX: G47.33 Obstructive sleep apnea (adult) (pediatric) (principal) | CPT/HCPCS: 95811 ==

== ENCOUNTER 2022-08-14 12:35 | Emergency (ER) | payer MEDICAID, SELFPAY ==
[2022-08-14 12:44] VITALS: TEMP 36.6; O2SAT 93; BMI 32.0
[2022-08-14 12:49] VITALS: BP 118/84; PULSE 95; RESP 24; O2SAT 93
--- NOTE | 2022-08-14 12:56 | CT_ITS ---
INDICATION: fall EXAMINATION: CT CERVICAL SPINE - CT Spine Cervical W/O Contrast Injection TECHNIQUE: Helically acquired images were obtained of the cervical spine. 2D reformatted images were reviewed. A radiation dose optimization technique was used for this scan. IV Contrast dosage and agent: None. RADIATION DOSAGE (If Supplied By Facility): CTDIvol = ( 29.81 ) mGy, DLP = ( 608.59 ) mGycm COMPARISON: January 05, 2018 FINDINGS: VERTEBRAE: No fracture or traumatic subluxation. No discrete lytic or blastic abnormality. There is loss of the normal cervical lordosis. There is multilevel facet hypertrophy. Normal craniocervical junction and cervicothoracic junction. DISCS and SPINAL CANAL: There is multilevel degenerative disc disease. No critical stenosis. NECK SOFT TISSUES: There are vascular calcifications. No prevertebral soft tissue swelling. There is no cervical adenopathy. LUNG APICES: Clear. CT/Spine Cervical without Contras IMPRESSION: Multilevel degenerative disc disease. Atherosclerosis. Electronically Signed: Pastora Mckeon MD at 14:19 EDT ,
--- NOTE | 2022-08-14 12:56 | CT_ITS ---
INDICATION: fall EXAMINATION: CT BRAIN - CT Head or Brain W/O Contrast Injection TECHNIQUE: Multiple axial images were obtained of the head without intravenous contrast. A radiation dose optimization technique was used for this scan. IV Contrast dosage and agent: None. RADIATION DOSAGE (If Supplied By Facility): CTDIvol = ( 44.99 ) mGy, DLP = ( 812.98 ) mGycm COMPARISON: January 05, 2018 FINDINGS: BRAIN PARENCHYMA: No intra- or extra-axial hemorrhage. No evidence of acute infarct. No intracranial mass or mass effect. There is preservation of the puckett/white matter interface. Posterior fossa structures are unremarkable. CSF SPACES: Appropriate for age. No hydrocephalus. Basal cisterns are patent. CALVARIUM, SKULL BASE, PARANASAL SINUSES AND MASTOID AIR CELLS: There is minimal opacification of the frontal, ethmoid and maxillary sinuses. No discrete lytic or blastic abnormalities. ORBITS: Both globes, extraocular muscles, optic nerves and retrobulbar fat appear unremarkable. ASPECTS Score for Acute Strokes: 10 CT/Brain/Head without Contrast IMPRESSION: No acute intracranial process. Minimal opacification of the frontal, ethmoid and maxillary sinuses consistent with a history of sinusitis. Electronically Signed: Pastora Mckeon MD at 13:47 EDT ,
--- NOTE | 2022-08-14 12:57 | EKG12_ITS ---
Test Reason : WITHDRAWAL Blood Pressure : / mmHG Vent. Rate : 086 BPM Atrial Rate : 086 BPM P-R Int : 182 ms QRS Dur : 092 ms QT Int : 406 ms P-R-T Axes : 063 -55 019 degrees QTc Int : 485 ms Normal sinus rhythm Possible Left atrial enlargement Left anterior fascicular block Inferior infarct , age undetermined Abnormal ECG When compared with ECG of 25-FEB-2020 09:16, No significant change was found Confirmed by ANGELINA TRAMMELL, FIORELLA ([id number]), state editor WARNER VILLANUEVA ([id number]) on 08/17/2022 9:11:03 AM Referred By: Confirmed By:FIORELLA ALFARO MD
--- NOTE | 2022-08-14 12:59 | CT_ITS ---
INDICATION: fall EXAMINATION: CT FACIAL BONES - CT Maxillofacial W/O Contrast Injection TECHNIQUE: Helically acquired images were obtained of the facial bones. A radiation dose optimization technique was used for this scan. IV Contrast dosage and agent: None. RADIATION DOSAGE (If Supplied By Facility): CTDIvol = ( 29.38 ) mGy, DLP = ( 606.22 ) mGycm COMPARISON: FINDINGS: SOFT TISSUES: No focal subcutaneous swelling. No discrete fluid collections. VISUALIZED PARANASAL SINUSES: There is minimal opacification of the frontal, ethmoid and maxillary sinuses. VISUALIZED MASTOID AIR CELLS: Clear. FACIAL BONES, MANDIBLE AND TMJs: No displaced facial bone fracture. No lytic or blastic abnormality. VISUALIZED DENTITION: No periodontal osseous erosion. ORBITAL CONTENTS: Both globes, extraocular muscles and retrobulbar fat appear unremarkable. CT/Sinus/Facial Bone IMPRESSION: No acute osseous injury. Mild opacification of the frontal, ethmoid and maxillary sinuses consistent with a history of sinusitis. Electronically Signed: Pastora Mckeon MD at 14:09 EDT ,
[2022-08-14] MEDS: 0.9% Normal Saline 1,000 ML 1000 ML IV (13:00)
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
[2022-08-14 13:11] LABS: Absolute Lymphocyte Count 2.24 X10^3/uL (0.83-4.51); Absolute Neutrophil Count 5.6 X10^3/uL (2.0-7.7); Basophil# 0.11 X10^3/uL; Basophil% 1.3 % (0-1); Eosinophil# 0.04 X10^3/uL; Eosinophils% 0.5 % (0-5); Hematocrit 44.8 % (40-54); Hemoglobin 15.5 g/dL (13.0-16.5); Lymphocyte # 2.24 X10^3/ul (0.83-4.51); Lymphocyte % 25.7 % (19-41); Mean Corp Hgb Conc 34.6 g/dL (32-36); Mean Corpuscular Hgb 30.6 pg (27.0-32.0); Mean Corpuscular Volume 88.5 fL (80-94); Monocyte# 0.75 X10^3/uL; Monocyte% 8.6 % (0-10); NRBC Flagged by Analyzer 0 % (0-5); Neutrophil # 5.55 X10^3/uL (2.7-7.7); Neutrophil % 63.4 % (47-70); Platelet Count 500 K/mm3 (150-450); RBC Distribution Width CV 14.6 % (11.6-14.6); RBC Distribution Width SD 47.1 fl (35.1-43.9); Red Blood Count 5.06 M/mm3 (4.6-6.2); White Blood Count 8.7 K/mm3 (4.4-11.0)
[2022-08-14 13:15] VITALS: PULSE 87; RESP 22; O2SAT 97
--- NOTE | 2022-08-14 13:25 | RAD_ITS ---
INDICATION: wound EXAMINATION/TECHNIQUE: X-RAY - RIGHT XR Foot Min 3 Views 3 VIEWS COMPARISON: September 02, 2019 FINDINGS: There has been previous amputation of the proximal metatarsals. There is diffuse soft tissue swelling of the soft tissue distal to the proximal metatarsals. No acute fracture nor dislocation. No suspicious bony lesions are visualized. RAD/Foot min 3 Views IMPRESSION: No suspicious bony lesions. Soft tissue swelling of the midfoot. Electronically Signed: Pastora Mckeon MD at 14:03 EDT ,
[2022-08-14 14:17] LABS: ALB/GLOB Ratio 0.9 RATIO (0.9-2.4); AST(SGOT) 19 U/L (15-37); Alanine Aminotransfer ALT/SGPT 33 U/L (16-61); Albumin, Serum 3.7 g/dL (3.2-5.0); Alkaline Phosphatase 93 U/L (45-117); Anion Gap 11 (5-15); BUN 8 mg/dL (7-18); BUN/Creat Ratio 8.9 RATIO (10-20); Calcium,Total 8.6 mg/dL (8.5-10.1); Chloride 101 mmol/L (98-107); EST Glomerular Filtration Rate 94 mL/min (>60); Est Glom Filt Rate - Afr Amer 114 mL/min (>60); Estimated Creatinine Clearance 103.42 ml/min; Globulin 3.9 g/dL (2.2-4.2); Glucose 511 mg/dL (74-106); Lipase 175 U/L (13-75); Protein, Total 7.6 g/dL (6.4-8.2); Sodium Level 137 mmol/L (136-145)
[2022-08-14 14:23] LABS: Bacteria 0 SEEN /hpf (None Seen); Mucous, Urine 0 SEEN /hpf (<or=2+); Red Blood Cells-Urine 0 SEEN /hpf (0-5); Squamous Epithelial Cells - UA 0 SEEN /hpf (0-5); White Blood Cells 0 SEEN /hpf (0-5)
[2022-08-14 14:26] LABS: Color, Urine Yellow (Yellow); Glucose, Dipstick 1000 mg/dl (Normal); Ketone-Dipstick Negative (Negative); Leukocyte Esterase-Dipstick Negative /ul (Negative); Nitrite-Dipstick Negative (Negative); Occult Blood-Urine Negative /ul (Negative); Protein-Dipstick Negative (Negative); Specific Gravity, Urine 1.005 (1.002-1.030); Urine Bilirubin Dipstick Negative (Negative); Urine Clarity Clear (Clear); Urine Urobilinogen Normal (Normal)
--- NOTE | 2022-08-14 14:40 | ED.RN ---
PATIENT UP IN ROOM. RIPPED OUT IV STATING HE WANTED TO GO HOME.
--- NOTE | 2022-08-14 15:26 | ED.RN ---
EZE CALLED TO COME AND AREA DIRECTOR OF HOME HEALTH SALES PATIENT.
== END 2022-08-14 15:57 | disposition home or self-care (01) ==
PROVIDERS: Nurse Practitioner; Emergency Provider Student in an Organized Health Care Education/Training Program; PCP Internal Medicine; Visit Provider Student in an Organized Health Care Education/Training Program
DX: F10.129 Alcohol abuse with intoxication, unspecified (principal); E11.65 Type 2 diabetes mellitus with hyperglycemia; E11.40 Type 2 diabetes mellitus with diabetic neuropathy, unspecified; Z79.4 Long term (current) use of insulin; I10 Essential (primary) hypertension; E78.5 Hyperlipidemia, unspecified; F17.210 Nicotine dependence, cigarettes, uncomplicated; W17.89XA Other fall from one level to another, initial encounter; Z79.899 Other long term (current) drug therapy; K21.9 Gastro-esophageal reflux disease without esophagitis; Z79.84 Long term (current) use of oral hypoglycemic drugs; Z96.653 Presence of artificial knee joint, bilateral
CPT/HCPCS: 70450; 70486; 72125; 73630; 80053; 81001; 82077; 83690; 85025; 93005; 96360; 99283; J7030; A4216

== ENCOUNTER → 2022-09-09 | Outpatient (CLI) | payer MEDICAID, SELFPAY | END | disposition home or self-care (01) | LOC: SL 08:05 | PROVIDERS: PCP Internal Medicine; Visit Provider Nurse Practitioner Acute Care | DX: Z46.9 Encounter for fitting and adjustment of unspecified device (principal) ==

== ENCOUNTER 2023-02-23 19:34 | Inpatient (IN) | payer OTHER, SELFPAY ==
[2023-02-23 19:35] VITALS: BP 115/90; PULSE 89; RESP 18; TEMP 36.7; O2SAT 98
--- NOTE | 2023-02-23 19:46 | EX.ED.SAOD ---
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 He was found in his truck without his pants on and intoxicated. Patient had been drinking alcohol and told police he wants help. They went to his house and found beer cans throughout the residence. Patient poor historian and really will not say what he drinks and how much. He also has a laceration to his right upper arm for self-inflicted and stated that he wanted to . [facility] Medical History Abdominal pain Arthritis Chronic pain Depression Diabetes GERD (gastroesophageal reflux disease) HTN (hypertension), benign Hyperlipidemia Screening for colon cancer Seizure disorder Sleep apnea Urinary urgency Ventral hernia Home Medications compress.stocking,knee,reg,lrg #2 ea 05/18/18 [Rx Last Taken Unknown] dextroamphetamine-amphetamine ER 50 mg capsule,3 bead,ext release 24hr (Mydayis) 50 mg PO DAILY Adult ADD 01/23/19 [History Last Taken Unknown] blood sugar diagnostic 02/15/20 [History Last Taken Unknown] buprenorphine 10 mcg/hour weekly transdermal patch 1 patch transdermal Q7D 03/26/20 [History Last Taken Unknown] trazodone 100 mg tablet 300 mg PO QHS sleep 04/24/20 [History Last Taken Unknown] pen needle, diabetic 31 gauge x 5/16 (Unifine Pentips) #200 ea 06/16/21 [Rx Last Taken Unknown] alcohol swabs 4 pad topical .qid Check with primary doctor #200 ea 09/08/21 [Rx Last Taken Unknown] empagliflozin 25 mg tablet 25 mg PO QAM diabetes #90 tabs 10/20/21 [Rx Last Taken Unknown] fluticasone propionate 50 mcg/actuation nasal spray,suspension 2 spray intranasal DAILY PRN Congestion #16 grams 10/30/21 [Rx Last Taken Unknown] albuterol sulfate 90 mcg/actuation aerosol inhaler (ProAir HFA) 1 - 2 puff inhalation Q6H PRN shortness of breath or wheezing #8.5 grams 05/18/22 [Rx Last Taken Unknown] albuterol sulfate 90 mcg/actuation aerosol inhaler (Ventolin HFA) 2 puff inhalation Q6H PRN shortness of breath or wheezing #8.5 grams 05/18/22 [Rx Last Taken Unknown] doxazosin 2 mg tablet 2 mg PO QHS blood pressure #90 tabs 05/18/22 [Rx Last Taken Unknown] meloxicam 15 mg tablet 15 mg PO DAILY PRN pain #30 tabs 05/18/22 [Rx Last Taken Unknown] blood sugar diagnostic (True Metrix Glucose Test Strip) #100 ea 06/17/22 [Rx Last Taken Unknown] blood-glucose meter (True Metrix Glucose Meter) #1 ea 06/17/22 [Rx Last Taken Unknown] lancets 28 gauge (FreeStyle Lancets) #200 ea 06/17/22 [Rx Last Taken Unknown] flash glucose scanning reader (FreeStyle Frances 2 [place]) #1 ea 07/12/22 [Rx Last Taken Unknown] insulin lispro 100 unit/mL subcutaneous pen (Humalog KwikPen (U-100) Insulin) See Rx Instructions .Route .COMPLEX #15 mL 08/02/22 [Rx Last Taken Unknown] amlodipine 10 mg tablet See Rx Instructions .Route .COMPLEX #30 tabs 01/14/23 [Rx Last Taken Unknown] atorvastatin 40 mg tablet See Rx Instructions .Route .COMPLEX #30 tabs 01/14/23 [Rx Last Taken Unknown] fenofibrate nanocrystallized 145 mg tablet See Rx Instructions .Route .COMPLEX #30 tabs 01/14/23 [Rx Last Taken Unknown] hydrochlorothiazide 25 mg tablet See Rx Instructions .Route .COMPLEX #30 tabs 01/14/23 [Rx Last Taken Unknown] flash glucose sensor (FreeStyle Frances 2 Sensor kit) #1 ea 02/01/23 [Rx Last Taken Unknown] insulin degludec 100 unit/mL (3 mL) subcutaneous pen 65 unit (0.65 mL) subcut QHS diabetes 3 months #58.5 mL 02/01/23 [Rx Last Taken Unknown] pantoprazole 40 mg tablet,delayed release See Rx Instructions .Route .COMPLEX #60 tabs 02/10/23 [Rx Last Taken Unknown] metformin 500 mg tablet,extended release 24hr (osmotic) 1,000 mg (2 x 500 mg) PO BID diabetes 3 months #360 tabs 02/16/23 [Rx Last Taken Unknown] Allergy/AdvReac Type Severity Reaction Status Date / Time No Known Allergies Allergy Verified 02/23/23 19:37 Family History Father Diabetes Mother Multiple sclerosis Other CVA (cerebral vascular accident) Surgical History cyst removed from pancreas History of amputation History of bilateral knee replacement Post-splenectomy S/P total knee arthroplasty Social History Smoking Status: Former smoker Tobacco: How many years used: 30 Smokeless tobacco user: snuff how long ago did patient quit smokin, 1ppd second hand exposure: Yes alcohol intake: former year quit: 2018 substance use type: does not use what type of physical activity do you participate in: none ROS ROS ED Review of Systems ROS Unobtainable: other Constitutional Constitutional ED: Reports lethargy; Denies chills, fever(s), sweats or weight loss Eyes Eyes: Denies blurry vision, change in vision or diplopia ENT ENT ED: Denies rhinorrhea or sore throat Cardiovascular Cardiovascular: Denies chest pain, orthopnea or racing heartbeat Respiratory/Chest Respiratory/Chest: Denies cough, dyspnea, dyspnea on exertion, orthopnea or sputum Gastrointestinal Gastrointestinal: Denies abdominal pain, diarrhea, nausea or vomiting Genitourinary Genitourinary ED: Denies dysuria, hematuria or urinary frequency Musculoskeletal Musculoskeletal: Denies arthralgias, back pain, myalgias or neck pain Integumentary Denies abscess, Abrasions or rash Neurologic Neurologic: Denies headache(s) or weakness Psychiatric Psychiatric: Reports suicidal thoughts; Denies anxiety or depression Endocrine Endocrinology: Denies polydipsia, polyphagia or polyuria Hematologic/Lymphatic Hematologic/Lymphatic: Denies easy bleeding, easy bruising or lymphadenopathy Allergic/Immunologic Allergic/Immunologic ED: Denies mouth swelling, tongue swelling or urticaria EXAM Physical Exam Const Vital Signs: 02/23/23 19:35 02/23/23 20:46 Temperature 98.0 F Temperature Source Temporal Pulse Rate 89 105 H Respiratory Rate 18 20 H Blood Pressure 115/90 H 145/99 H Blood Pressure Mean 98 114 Pulse Ox 98 95 Oxygen Delivery Method Room Air Nasal Cannula Oxygen Flow Rate (L/min) 5 Positive well nourished and well developed General Appearance ED: well developed and NAD HEENT Reports TM's clear and moist mucous membranes normocephalic and atraumatic; Negative for trauma or tenderness Tympanic Membrane ED: Yes TM's clear Eyes PERRL and EOMs intact bilaterally General Eye ED: Negative for pale conjunctiva or scleral icterus Neck no lymphadenopathy, supple and no JVD General: Negative for tenderness Chest Wall inspection of chest normal and palpation of chest normal Chest: Negative for tenderness Resp normal respiratory effort and clear to auscultation bilaterally Effort and Inspection: Negative for respiratory distress or pain with movement Auscultation: Negative for rhonchi, wheezes or diminished lung sounds Cardio regular rate, regular rhythm, S1 normal heart sound, S2 normal heart sound and no murmurs Peripheral Pulses: pulses 2+ throughout GI normal to inspection, nondistended, normoactive bowel sounds, soft to palpation, non-tender, non-distended and no masses Back/Spine no CVA tenderness and no thoracic nor lumbar tenderness Back/Spine Narrative: Ecchymosis and bruising noted to the left buttock Extremity Extremity Narrative: Forearm-patient has a 4 cm superficial laceration with no active bleeding. General Extremety ED: Negative for edema General Extremity: Negative for edema Neuro oriented x3, CN's II-XII intact bilaterally, no sensory deficits noted and gait normal Sensorium / Orientation: awake, alert, oriented to person, oriented to place and oriented to time Motor Exam: strength 5/5 throughout and strength abnormal Psych mental status grossly normal Psych Narrative: Admits attempted self-harm. Attitude: agitated Skin no rashes or lesions noted and no wounds MDM MDM MDM Narrative Medical decision making narrative: To the emergency department with police escort and intoxicated of alcohol. He told police he wanted help but really cannot tell me exactly what he would want to happen. He is noted to have ecchymosis and bruising to his buttock and then a wound to his right upper arm which she told me was self-inflicted with a knife. Patient obviously intoxicated and was not cooperative with exam and wanting to leave his room and wander. Patient had to be chemically restrained with Haldol 5 mg IM and also Ativan 1 mg IM. Because of evidence of injury and trauma I did obtain a CT scan of the brain without contrast which was unremarkable. Lab work-up obtained showed WBC count of 9.8 with hemoglobin of 15.9 and platelet count of 476. Chemistries on the. Glucose was elevated at 594. AST was 104 and ALT 73 as well as alk phos of 102. Alcohol evaded at 425 urine tox screen was negative. Patient had a laceration repair of his right upper arm. Please see procedure note. Case will be turned over to evening physician awaiting normalization of alcohol and evaluation by crisis. Also I did give patient insulin 10 units subcu for elevated glucose and we will monitor that. If he wants alcohol detox once alcohol normalizes will offer him inpatient detox. Lab Data Attestation: I reviewed the patient's lab results. Labs: Laboratory Results - last 24 hr 02/23/23 19:48 WBC 9.8 RBC 5.27 Hgb 15.9 Hct 45.8 MCV 86.9 MCH 30.2 MCHC 34.7 RDW Std Deviation 41.1 RDW Coeff of Eliezer 13.1 Plt Count 476 H MPV 10.0 Immature Gran % (Auto) 0.200 Neut % (Auto) 64.8 Lymph % (Auto) 17.9 L Ada % (Auto) 9.7 Eos % (Auto) 6.9 H Baso % (Auto) 0.5 Absolute Neuts (auto) 6.4 Absolute Lymphs (auto) 1.75 Nucleated RBC % 0 Platelet Estimate SLT INC RBC Morphology N CHROM Anisocytosis RARE Sodium 130 L Potassium 4.5 Chloride 89 L Carbon Dioxide 26.0 Anion Gap 15 BUN 8 Creatinine 1.25 Estim Creat Clear Calc 60.82 Est GFR (MDRD) Af Amer 78 Est GFR (MDRD) Non-Af 65 BUN/Creatinine Ratio 6.4 L Glucose 594 H* Calcium 9.5 Total Bilirubin 0.60 AST 104 H ALT 73 H Alkaline Phosphatase 102 Total Protein 8.5 H Albumin 3.8 Globulin 4.7 H Albumin/Globulin Ratio 0.8 L Urine Opiates Screen NEGATIVE Urine Methadone Screen NEGATIVE Ur Barbiturates Screen NEGATIVE Ur Phencyclidine Scrn NEGATIVE Ur Amphetamines Screen NEGATIVE MDMA (Ecstasy) Screen NEGATIVE U Benzodiazepines Scrn NEGATIVE Urine Cocaine Screen NEGATIVE U Cannabinoids Screen NEGATIVE Ur Drug Screen Comment Ethyl Alcohol 425.0 H* Radiography Diagnostic Testing: Clinical Impression(s) from Imaging Studies Brain CT 02/23/23 20:31 IMPRESSION: Normal unenhanced CT scan of the brain. Electronically Signed: Mauricio Leigh MD at 21:21 EST , Procedures Lacerations Right upper arm laceration: Length: 1.97 in Depth: Sub Q Shape: Linear Prep: Sterile Conditions and Shure-Clens Laceration repair: Irrigated and Skin sutures Irrigated (ml): 100 Number of Sutures/[place]: 4 Suture Information: Ethilon, Simple and 5-0 Discharge Plan Triage Chief Complaint: Substance Abuse ED Provider: Jovanny Spear Dx/Rx/DC Orders Clinical Impression: Alcohol intoxication, Laceration of right upper arm, Hyperglycemia Prescriptions: No Action (DME) compress.stocking,knee,reg,lrg misc See Dose Instructions .ROUTE .MEDSUPPLY Qty: 2 1RF Dose Instruction: As directed Rx Instructions: wear daily for venous insufficiency 20-30 mmhg Mydayis 50 mg capsule, ER triphasic 24 hr 50 mg PO DAILY buprenorphine 10 mcg/hour patch weekly 1 patch TD Q7D fluticasone propionate 50 mcg/actuation spray,suspension 2 spray INTRANASAL DAILY PRN (Reason: Congestion) Qty: 16 2RF doxazosin 2 mg tablet 2 mg PO QHS Qty: 90 3RF meloxicam 15 mg tablet 15 mg PO DAILY PRN (Reason: pain) Qty: 30 2RF albuterol sulfate [ProAir HFA] 90 mcg/actuation HFA aerosol inhaler 1 - 2 puff inhalation Q6H PRN (Reason: shortness of breath or wheezing) Qty: 8.5 1RF (DME) blood sugar diagnostic 1 EACH strip .Route .MEDSUPPLY Rx Instructions: Use QID for Diabetes 2 trazodone 100 mg tablet 300 mg PO QHS (DME) pen needle, diabetic [Unifine Pentips] 31 gauge x 5/16 needle See Rx Instructions .ROUTE .COMPLEX Qty: 200 3RF Dose Instruction: USE DIRECTED Rx Instructions: USE DIRECTED alcohol swabs Pads, Medicated 4 pad TOPICAL .qid Qty: 200 3RF empagliflozin 25 mg tablet 25 mg PO QAM Qty: 90 3RF albuterol sulfate [Ventolin HFA] 90 mcg/actuation HFA aerosol inhaler 2 puff inhalation Q6H PRN (Reason: shortness of breath or wheezing) Qty: 8.5 0RF (DME) True Metrix Glucose Test Strip Strip See Rx Instructions .ROUTE .MEDSUPPLY Qty: 100 3RF Rx Instructions: As directed 3 times daily (DME) blood-glucose meter [True Metrix Glucose Meter] [facility] See Rx Instructions .ROUTE .MEDSUPPLY Qty: 1 0RF Rx Instructions: As directed (DME) lancets [FreeStyle Lancets] 28 gauge [facility] See Dose Instructions .ROUTE .MEDSUPPLY Qty: 200 11RF Rx Instructions: As directed (DME) FreeStyle Frances 2 [place] Mis See Rx Instructions .Route Qty: 1 3RF Rx Instructions: As directed insulin lispro [Humalog KwikPen Insulin] 100 unit/mL insulin pen See Rx Instructions .ROUTE .COMPLEX Qty: 15 3RF Dose Instruction: INJECT 25 UNITS SUBCUTANEOUSLY THREE TIMES A DAY FOR DIABETES Rx Instructions: INJECT 25 UNITS SUBCUTANEOUSLY THREE TIMES A DAY FOR DIABETES atorvastatin 40 mg tablet See Rx Instructions .ROUTE .COMPLEX Qty: 30 1RF Dose Instruction: TAKE 1 TABLET BY MOUTH DAILY Rx Instructions: TAKE 1 TABLET BY MOUTH DAILY fenofibrate nanocrystallized 145 mg tablet See Rx Instructions .ROUTE .COMPLEX Qty: 30 1RF Dose Instruction: TAKE 1 TABLET BY MOUTH DAILY Rx Instructions: TAKE 1 TABLET BY MOUTH DAILY hydrochlorothiazide 25 mg tablet See Rx Instructions .ROUTE .COMPLEX Qty: 30 1RF Dose Instruction: TAKE 1 TABLET BY MOUTH DAILY FOR WATER PILL Rx Instructions: TAKE 1 TABLET BY MOUTH DAILY FOR WATER PILL amlodipine 10 mg tablet See Rx Instructions .ROUTE .COMPLEX Qty: 30 1RF Dose Instruction: TAKE 1 TABLET BY MOUTH DAILY FOR BLOOD PRESSURE Rx Instructions: TAKE 1 TABLET BY MOUTH DAILY FOR BLOOD PRESSURE insulin degludec 100 unit/mL (3 mL) insulin pen 65 unit SC QHS 90 Days Qty: 58.5 0RF (DME) FreeStyle Frances 2 Sensor Kit See Rx Instructions .ROUTE .COMPLEX Qty: 1 3RF Dose Instruction: TEST BLOOD SUGAR FOUR TIMES A DAY Rx Instructions: TEST BLOOD SUGAR FOUR TIMES A DAY pantoprazole 40 mg tablet,delayed release (DR/EC) See Rx Instructions .ROUTE .COMPLEX Qty: 60 0RF Dose Instruction: TAKE 1 TABLET BY MOUTH DAILY FOR GERD Rx Instructions: TAKE 1 TABLET BY MOUTH DAILY FOR GERD metformin 500 mg tablet extended release 24hr 1,000 mg PO BID 90 Days Qty: 360 0RF Primary Care Provider: Asha Arreaga Referrals: Asha Arreaga MD [Primary Care Provider] -
[2023-02-23 19:57] LABS: Absolute Lymphocyte Count 1.75 X10^3/uL (0.83-4.51); Absolute Neutrophil Count 6.4 X10^3/uL (2.0-7.7); Basophil# 0.05 X10^3/uL; Basophil% 0.5 % (0-1); Eosinophil# 0.68 X10^3/uL; Eosinophils% 6.9 % (0-5); Hematocrit 45.8 % (40-54); Hemoglobin 15.9 g/dL (13.0-16.5); Lymphocyte # 1.75 X10^3/ul (0.83-4.51); Lymphocyte % 17.9 % (19-41); Mean Corp Hgb Conc 34.7 g/dL (32-36); Mean Corpuscular Hgb 30.2 pg (27.0-32.0); Mean Corpuscular Volume 86.9 fL (80-94); Monocyte# 0.95 X10^3/uL; Monocyte% 9.7 % (0-10); NRBC Flagged by Analyzer 0 % (0-5); Neutrophil # 6.35 X10^3/uL (2.7-7.7); Neutrophil % 64.8 % (47-70); POSITIVE MORPHOLOGY YES; Platelet Count 476 K/mm3 (150-450); RBC Distribution Width CV 13.1 % (11.6-14.6); RBC Distribution Width SD 41.1 fl (35.1-43.9); Red Blood Count 5.27 M/mm3 (4.6-6.2); White Blood Count 9.8 K/mm3 (4.4-11.0)
[2023-02-23] MEDS: Haloperidol Lactate 5 MG/ML Vial IM (20:03)
[2023-02-23] MEDS: LORazepam 2 MG/ML Syringe 1 MG IV (20:06)
[2023-02-23] MEDS: 0.9% Normal Saline (1000mL) 1,000 ML 150 ML IV (20:11)
[2023-02-23 20:16] VITALS: BMI 37.5
[2023-02-23 20:20] LABS: Differential Indicated SCAN CRITERIA MET
[2023-02-23 20:21] LABS: ALB/GLOB Ratio 0.8 RATIO (0.9-2.4); AST(SGOT) 104 U/L (15-37); Alanine Aminotransfer ALT/SGPT 73 U/L (16-61); Albumin, Serum 3.8 g/dL (3.2-5.0); Alkaline Phosphatase 102 U/L (45-117); Anion Gap 15 (5-15); BUN 8 mg/dL (7-18); BUN/Creat Ratio 6.4 RATIO (10-20); Calcium,Total 9.5 mg/dL (8.5-10.1); Chloride 89 mmol/L (98-107); Creatinine, Serum 1.25 mg/dL (0.70-1.30); EST Glomerular Filtration Rate 65 mL/min (>60); Est Glom Filt Rate - Afr Amer 78 mL/min (>60); Estimated Creatinine Clearance 60.82 ml/min; Globulin 4.7 g/dL (2.2-4.2); Glucose 594 mg/dL (74-106); Potassium 4.5 mmol/L (3.5-5.1); Protein, Total 8.5 g/dL (6.4-8.2); Sodium Level 130 mmol/L (136-145)
[2023-02-23 20:22] LABS: Anisocytosis RARE; Platelet Estimate SLT INC (ADEQ); Red Cell Morphology N CHROM NORMAL (NORM C&C)
--- NOTE | 2023-02-23 20:31 | CT_ITS ---
STUDY: CT BRAIN WITHOUT CONTRAST REASON FOR EXAM: Male, 52 years old. Mental status change RADIATION DOSAGE (If Supplied By Facility): CTDIvol = ( 44.99 ) mGy, DLP = ( 796.11 ) mGycm TECHNIQUE: Transaxial CT imaging of the brain was performed without administration of intravenous contrast material. Individualized dose optimization techniques were used for this CT. COMPARISON: August 14, 2022 FINDINGS: Normal soft tissue structures. Normal calvarium. Normal size ventricles and extra-axial spaces for the patient''s age. Normal white matter tracts of the cerebral hemispheres. Normal basal ganglia and thalami. Normal brainstem. Normal cerebellum. There is no intracranial hemorrhage. There are no findings of an acute ischemic infarction. Normal visualized paranasal sinuses. CT/Brain/Head without Contrast IMPRESSION: Normal unenhanced CT scan of the brain. Electronically Signed: Mauricio Leigh MD at 21:21 EST ,
[2023-02-23 20:33] LABS: Amphetamine Urine VISTA NEGATIVE (<1000 ng/mL); Barbiturate Urine VISTA NEGATIVE (< 200 ng/mL); Benzodiazepine Urine VISTA NEGATIVE (< 200 ng/mL); Cocaine Urine VISTA NEGATIVE (< 300 ng/mL); Ecstacy Urine VISTA NEGATIVE (< 500 ng/mL); Methadone Urine VISTA NEGATIVE (< 300 ng/mL); PCP Urine VISTA NEGATIVE (< 25 ng/mL); THC Urine VISTA NEGATIVE (< 50 ng/mL); Vista UDS pH Range 5
[2023-02-23] MEDS: Diphth,Pertuss(Acell),Tet Vac 0.5 ML Vial IM (20:37)
[2023-02-23] MEDS: Insulin Lispro 100 UNIT/ML INSULN.PEN 10 UNIT SC ×2 (20:41→23:21)
[2023-02-23 20:46] VITALS: BP 145/99; PULSE 105; RESP 20; O2SAT 95
[2023-02-23 21:40] VITALS: BP 142/97; PULSE 106; RESP 23; TEMP 36.7; O2SAT 94
[2023-02-23 22:00] VITALS: BP 129/96; PULSE 105; RESP 26; O2SAT 94
[2023-02-23 22:31] LABS: Bedside Glucose 462 mg/dL (74-106)
[2023-02-23 23:19] VITALS: BP 129/88; PULSE 118; RESP 17; TEMP 36.7; O2SAT 95
[2023-02-23 23:42] LABS: Bedside Glucose 334 mg/dL (74-106)
[2023-02-24] VITALS (39 sets, daily range): BP systolic 109–160; BP diastolic 66–114; PULSE 71–184; RESP 15–33; TEMP 35.6–36.8; O2SAT 89–99; BMI 31.6
--- NOTE | 2023-02-24 01:11 | EKG12_ITS ---
Test Reason : Blood Pressure : / mmHG Vent. Rate : 164 BPM Atrial Rate : 319 BPM P-R Int : 000 ms QRS Dur : 114 ms QT Int : 244 ms P-R-T Axes : 262 -63 010 degrees QTc Int : 403 ms Critical Test Result: High HR Atrial flutter with variable A-V block with premature ventricular or aberrantly conducted complexes Left anterior fascicular block Inferior infarct , age undetermined Abnormal ECG Confirmed by ANGELINA TRAMMELL, FIORELLA ([id number]), video tape editor WARNER VILLANUEVA ([id number]) on 02/24/2023 10:53:14 AM Referred By: Confirmed By:FIORELLA ALFARO MD
[2023-02-24] MEDS: LORazepam 2 MG/ML Syringe IV (01:13)
[2023-02-24 01:27] LABS: Bedside Glucose 210 mg/dL (74-106)
[2023-02-24 01:34] LABS: Magnesium 1.9 mg/dL (1.6-2.6)
[2023-02-24] MEDS: Thiamine Hydrochloride 100 MG in 0.9% Normal Saline (50mL Bag) 50 ML 200 MG IV (01:43)
[2023-02-24] MEDS: Dextrose 5%/0.9% NaCl 1,000 ML 250 ML IV (02:10)
--- NOTE | 2023-02-24 02:28 | HP.PCM.HOS_ITS ---
HPI - General General Date of Admission: 02/24/23 Date of Service: 02/24/23 Chief Complaint: streaking HPI Narrative OLGA PLASENCIA, is a 52 M who presents after being found by police streaking, running through the town with his pants off.. Patient was brought to the emergency room where he was noted to be intoxicated. Patient was also ex pressing desires to kill himself. Did sustain a laceration on his right upper arm patient tells me it was accidental but tells other that that may have been intentional to try to kill himself. That was sutured in the emergency room. After several hours, patient became more agitated and developed tachycardia. His heart rate was going up to the 160s to 170s. On EKG it appeared to be a sinus tachycardia. Patient denies any chest pain or palpitations. Additionally his blood sugar was noted to be in the 500s did receive 10 units of NovoLog. Patient states that he drinks 2 4-[place]res[place]'s, gallon of whiskey and a half a gallon of vodka daily. Denies illicit substances. FORMERLY [facility], [facility] Medical History Abdominal pain Arthritis Chronic pain Depression Diabetes GERD (gastroesophageal reflux disease) HTN (hypertension), benign Hyperlipidemia Screening for colon cancer Seizure disorder Sleep apnea Urinary urgency Ventral hernia Home Medications compress.stocking,knee,reg,lrg #2 ea 05/18/18 [Rx Last Taken Unknown] dextroamphetamine-amphetamine ER 50 mg capsule,3 bead,ext release 24hr (Mydayis) 50 mg PO DAILY Adult ADD 01/23/19 [History Last Taken Unknown] blood sugar diagnostic 02/15/20 [History Last Taken Unknown] buprenorphine 10 mcg/hour weekly transdermal patch 1 patch transdermal Q7D 03/26/20 [History Last Taken Unknown] trazodone 100 mg tablet 300 mg PO QHS sleep 04/24/20 [History Last Taken Unknown] pen needle, diabetic 31 gauge x 5/16 (Unifine Pentips) #200 ea 06/16/21 [Rx Last Taken Unknown] alcohol swabs 4 pad topical .qid Check with primary doctor #200 ea 09/08/21 [Rx Last Taken Unknown] empagliflozin 25 mg tablet 25 mg PO QAM diabetes #90 tabs 07/26/22 [Rx Last Taken Unknown] fluticasone propionate 50 mcg/actuation nasal spray,suspension 2 spray intranasal DAILY PRN Congestion #16 grams 10/30/21 [Rx Last Taken Unknown] albuterol sulfate 90 mcg/actuation aerosol inhaler (ProAir HFA) 1 - 2 puff inhalation Q6H PRN shortness of breath or wheezing #8.5 grams 05/18/22 [Rx Last Taken Unknown] albuterol sulfate 90 mcg/actuation aerosol inhaler (Ventolin HFA) 2 puff inhalation Q6H PRN shortness of breath or wheezing #8.5 grams 05/18/22 [Rx Last Taken Unknown] doxazosin 2 mg tablet 2 mg PO QHS blood pressure #90 tabs 05/18/22 [Rx Last Taken Unknown] meloxicam 15 mg tablet 15 mg PO DAILY PRN pain #30 tabs 05/18/22 [Rx Last Taken Unknown] blood sugar diagnostic (True Metrix Glucose Test Strip) #100 ea 06/17/22 [Rx Las t Taken Unknown] blood-glucose meter (True Metrix Glucose Meter) #1 ea 06/17/22 [Rx Last Taken Unknown] lancets 28 gauge (FreeStyle Lancets) #200 ea 06/17/22 [Rx Last Taken Unknown] flash glucose scanning reader (FreeStyle Frances 2 [place]) #1 ea 07/12/22 [Rx Last Taken Unknown] insulin lispro 100 unit/mL subcutaneous pen (Humalog KwikPen (U-100) Insulin) See Rx Instructions .Route .COMPLEX #15 mL 08/02/22 [Rx Last Taken Unknown] amlodipine 10 mg tablet See Rx Instructions .Route .COMPLEX #30 tabs 01/14/23 [Rx Last Taken Unknown] atorvastatin 40 mg tablet See Rx Instructions .Route .COMPLEX #30 tabs 01/14/23 [Rx Last Taken Unknown] fenofibrate nanocrystallized 145 mg tablet See Rx Instructions .Route .COMPLEX #30 tabs 01/14/23 [Rx Last Taken Unknown] hydrochlorothiazide 25 mg tablet See Rx Instructions .Route .COMPLEX #30 tabs 01/14/23 [Rx Last Taken Unknown] flash glucose sensor (FreeStyle Frances 2 Sensor kit) #1 ea 02/01/23 [Rx Last Taken Unknown] insulin degludec 100 unit/mL (3 mL) subcutaneous pen 65 unit (0.65 mL) subcut QHS diabetes 3 months #58.5 mL 02/01/23 [Rx Last Taken Unknown] pantoprazole 40 mg tablet,delayed release See Rx Instructions .Route .COMPLEX #60 tabs 02/10/23 [Rx Last Taken Unknown] metformin 500 mg tablet,extended release 24hr (osmotic) 1,000 mg (2 x 500 mg) PO BID diabetes 3 months #360 tabs 02/16/23 [Rx Last Taken Unknown] Allergy/AdvReac Type Severity Reaction Status Date / Time No Known Allergies Allergy Verified 02/23/23 19:37 Family History Father Diabetes Mother Multiple sclerosis Other CVA (cerebral vascular accident) Surgical History cyst removed from pancreas History of amputation History of bilateral knee replacement Post-splenectomy S/P total knee arthroplasty Social History Smoking Status: Former smoker Tobacco: How many years used: 30 Smokeless tobacco user: snuff how long ago did patient quit smokin, 1ppd second hand exposure: Yes alcohol intake: former year quit: 2018 substance use type: does not use what type of physical activity do you participate in: none Vital Signs Vital Signs Vital Signs: 02/23/23 19:35 02/23/23 20:46 02/23/23 21:40 Temperature 36.7 C 36.7 C Temperature Source Temporal Temporal Pulse Rate 89 105 H 106 H Respiratory Rate 18 20 H 23 H Blood Pressure 115/90 H 145/99 H 142/97 H Blood Pressure Mean 98 114 112 Pulse Ox 98 95 94 Oxygen Delivery Method Room Air Nasal Cannula Nasal Cannula Oxygen Flow Rate (L/min) 5 5 02/23/23 22:00 02/23/23 23:19 02/24/23 01:00 Temperature 36.7 C 36.7 C Temperature Source Temporal Temporal Pulse Rate 105 H 118 H 163 H Respiratory Rate 26 H 17 24 H Blood Pressure 129/96 H 129/88 H 133/102 H Blood Pressure Mean 107 101 112 Pulse Ox 94 95 96 Oxygen Delivery Method Room Air Nasal Cannula Nasal Cannula Oxygen Flow Rate (L/min) 5 6 02/24/23 02:03 02/24/23 02:06 Temperature 36.7 C 36.7 C Temperature Source Temporal Pulse Rate 184 H 164 H Respiratory Rate 15 27 H Blood Pressure 138/97 H 138/97 H Blood Pressure Mean 110 110 Pulse Ox 95 92 Oxygen Delivery Method Nasal Cannula Oxygen Flow Rate (L/min) 6 Weight Weight: 102.5 kg Body Mass Index (BMI) 37.5 Physical Exam Const Constitutional Narrative: Awake. Intoxicated. Afebrile. HEENT normocephalic and head/scalp atraumatic Neck no lymphadenopathy Resp normal respiratory effort, no retractions, no use of accessory muscles and clear to auscultation bilaterally Cardio Cardio Narrative: Tachycardic. No murmurs gallops or rubs. GI normal to inspection, nondistended, normoactive bowel sounds, soft to palpation, non-tender and non-distended Extremity Extremity Narrative: Lacerations on arm are sutured and well-approximated. Covered with bandage. Neuro moves all extremities Sensorium / Orientation: awake and oriented to place Psych Mood & Affect: anxious Results Lab / Micro Data 02/23/23 19:48 02/23/23 19:48 Labs: Laboratory Results - last 24 hr 02/23/23 19:48: WBC 9.8, RBC 5.27, Hgb 15.9, Hct 45.8, MCV 86.9, MCH 30.2, MCHC 34.7, RDW Std Deviation 41.1, RDW Coeff of Eliezer 13.1, Plt Count 476 H, MPV 10.0, Immature Gran % (Auto) 0.200, Neut % (Auto) 64.8, Lymph % (Auto) 17.9 L, [place] % (Auto) 9.7, Eos % (Auto) 6.9 H, Baso % (Auto) 0.5, Absolute Neuts (auto) 6.4, Absolute Lymphs (auto) 1.75, Nucleated RBC % 0, Platelet Estimate SLT INC, RBC Morphology N CHROM, Anisocytosis RARE, Sodium 130 L, Potassium 4.5, Chloride 89 L, Carbon Dioxide 26.0, Anion Gap 15, BUN 8, Creatinine 1.25, Estim Creat Clear Calc 60.82, Est GFR (MDRD) Af Amer 78, Est GFR (MDRD) Non-Af 65, BUN/Creatinine Ratio 6.4 L, Glucose 594 H*, Calcium 9.5, Magnesium 1.9, Total Bilirubin 0.60, AST 104 H, ALT 73 H, Alkaline Phosphatase 102, Total Protein 8.5 H, Albumin 3.8, Globulin 4.7 H, Albumin/Globulin Ratio 0.8 L, Urine Opiates Screen NEGATIVE, Urine Methadone Screen NEGATIVE, Ur Barbiturates Screen NEGATIVE, Ur Phencyclidine Scrn NEGATIVE, Ur Amphetamines Screen NEGATIVE, MDMA (Ecstasy) Screen NEGATIVE, U Benzodiazepines Scrn NEGATIVE, Urine Cocaine Screen NEGATIVE, U Cannabinoids Screen NEGATIVE, Ur Drug Screen Comment , Ethyl Alcohol 425.0 H * 02/23/23 22:12: POC Glucose 462 H* 02/23/23 23:18: POC Glucose 334 H 02/24/23 01:10: POC Glucose 210 H Imagaing Radiology Impression Brain CT 02/23/23 20:31 IMPRESSION: Normal unenhanced CT scan of the brain. Electronically Signed: Mauricio Leigh MD at 21:21 EST , Assessment & Plan Assessment/Plan (1) Alcohol withdrawal: QUALIFIERS: Complication of substance-induced condition: uncomplicated Qualified Code(s): F10.930 - Alcohol use, unspecified with withdrawal, uncomplicated PLAN: Acute. Patient has become more agitated with tachycardia is concerning for worsening alcohol withdrawal. He did receive lorazepam as well as haloperidol in the emergency room. Given the large quantities of alcohol he does consume, will initiate phenobarbital taper. I am concerned that may not be sufficient and he may require being put on a dexmedetomidine drip. Patient will be placed in the ICU as a precaution in case to further decline. If patient fares well in the ICU perhaps he could be transition to progressive care unit the following day. Thiamine and folate. (2) Suicidal ideation: PLAN: Patient has been expressing desire to kill himself. Patient will need to be stabilized and have crisis evaluate him. He has had a pink slipped written u p in the emergency room already. (3) Tachycardia: PLAN: EKG appears to be more sinus. Will treat him with metoprolol. May consider giving adenosine if it seems to be refractory. Does not appear to be atrial fibrillation or flutter. Will check an echocardiogram. (4) Diabetes mellitus with hyperglycemia: QUALIFIERS: Diabetes mellitus type: type 2 Diabetes mellitus halfway insulin use: with halfway use Qualified Code(s): E11.65 - Type 2 diabetes mellitus with hyperglycemia; Z79.4 - continuous churn buttermaker (current) use of insulin PLAN: Noncompliant most likely. Will initiate glargine scheduled twice daily at 30 units as appears to be patient takes 65 units at night plus a sliding scale insulin. Check an A1c PLAN: Plan Right arm laceration: Unclear if this was due to accident or self-induced. This was on the lateral upper arm that it was mentioned that he tried to kill himself that way the more of a unusual location to try to cure is only cutting their arms. Nonetheless it was sutured in the emergency room and will need to have sutures removed in 7 to 10 days. VTE prophylaxis with enoxaparin
--- NOTE | 2023-02-24 02:38 | ECHOCS_ITS ---
Reason For Study: Tachycardia Procedure This was a 2D Doppler, Color Flow transthoracic echocardiogram. The study was technically difficult. Exam performed portable in ICU/CCU. Left Ventricle Normal LV size. Mild concentric left ventricular hypertrophy. The estimated ejection fraction is 40 %. There is mild global hypokinesis of the left ventricle. Right Ventricle Normal RV size. Normal systolic function. Atria Normal left atrium. Normal right atrium. Mitral Valve Bileaflet diffuse mitral valve thickening. Mild (1+) eccentric mitral valve insufficiency. Tricuspid Valve The tricuspid valve is not well visualized. Mild (1+) tricuspid valve insufficiency. Pulmonary artery systolic pressure is 44 mmHg. Aortic Valve The aortic valve is not well visualized. Pulmonic Valve The pulmonic valve is not well visualized. Great Vessels Normal aortic root. The pulmonary artery is normal size. Normal inferior vena cava. Pericardium/Pleural No pericardial effusion. Medication Diluted definity 2ml given slow IV push to enhance endocardial definition. MMode/2D Measurements & Calculations LVIDd: 6.0 cm IVSd: 1.2 cm Ao root diam: 3.3 cm LVIDs: 4.9 cm LVPWd: 1.2 cm RVDd: 4.1 cm FS: 17.8 % LAV(MOD-bp): 84.7 ml LVAd ap4: 45.5 cm2 LVAd ap2: 48.4 cm2 LAV(MOD-bp) Indexed: 40.6 ml/m2 LVLd ap4: 9.5 cm LVLd ap2: 9.7 cm LAV(MOD-sp2): 77.7 ml EDV(MOD-sp4): 184.0 ml EDV(MOD-sp2): 207.8 ml LAV(MOD-sp4): 82.9 ml EDV(sp4-el): 185.0 ml EDV(sp2-el): 205.2 ml LVAs ap4: 32.9 cm2 LVAs ap2: 37.3 cm2 LVLs ap4: 8.0 cm LVLs ap2: 8.7 cm ESV(MOD-sp4): 115.0 ml ESV(MOD-sp2): 137.5 ml ESV(sp4-el): 114.3 ml ESV(sp2-el): 136.0 ml EF(MOD-sp4): 37.5 % EF(MOD-sp2): 33.8 % EF(sp4-el): 38.2 % SV(MOD-sp4): 69.0 ml SV(MOD-sp2): 70.3 ml SV(sp4-el): 70.7 ml LA A4 area: 25.8 cm2 LA dimension(2D): 4.0 cm RA A4 area: 20.3 cm2 TAPSE: 2.8 cm Time Measurements MV dec time: 0.15 sec Doppler Measurements & Calculations MV E max toribio: 101.8 cm/sec Lat Peak E' Toribio: 11.4 cm/sec Med Peak E' Toribio: 10.0 cm/sec MV A max toribio: 60.7 cm/sec E/E' lat: 8.9 E/E' med: 10.2 MV E/A: 1.7 Ao V2 max: 150.2 cm/sec LV V1 max: 106.2 cm/sec MV dec slope: 701.7 cm/sec2 Ao max P.0 mmHg LV V1 max P.6 mmHg Ao V2 mean: 111.5 cm/sec LV V1 mean P.9 mmHg Ao mean P.6 mmHg LV V1 mean: 79.3 cm/sec Ao V2 VTI: 28.6 cm LV V1 VTI: 19.8 cm AV (velocity ratio): 0.69 PA V2 max: 99.6 cm/sec TR max toribio: 295.1 cm/sec TR max P.8 mmHg ECHO/Echo Complete W/ Contrast Interpretation Summary Normal LV size. The estimated ejection fraction is 40 %. There is mild global hypokinesis of the left ventricle. Mild concentric left ventricular hypertrophy. Pulmonary artery systolic pressure is 44 mmHg. Contrast injection was performed. Ordering Physician: Bill Moran Referring Physician: Asha Arreaga Performed By: Michelle Stanley RDCS
--- NOTE | 2023-02-24 02:51 | EKG12_ITS ---
Test Reason : UNKNOWN Blood Pressure : / mmHG Vent. Rate : 175 BPM Atrial Rate : 000 BPM P-R Int : 000 ms QRS Dur : 084 ms QT Int : 268 ms P-R-T Axes : 000 -43 048 degrees QTc Int : 457 ms Critical Test Result: High HR Atrial fibrillation with rapid ventricular response Left axis deviation Nonspecific ST and T wave abnormality Abnormal ECG Confirmed by YOUSUF TRAMMELL, JAMEL ([id number]), publication editor WARNER VILLANUEVA ([id number]) on 03/08/2023 8:52:17 A M Referred By: Dean Confirmed By:SONNY TO MD
[2023-02-24] MEDS: Metoprolol Tartrate 5 MG/5 ML Vial IV (03:01)
[2023-02-24] MEDS: hydrOXYzine PAM 25 MG Capsule 50 MG PO ×3 (03:02→22:02)
[2023-02-24] MEDS: 0.9% Normal Saline (1000mL) 1,000 ML 150 ML IV ×4 (03:05→23:28)
[2023-02-24] MEDS: Phenobarbital 32.4 MG Tablet 64.8 MG PO ×6 (03:06→22:02)
[2023-02-24] MEDS: Metoprolol Tartrate 50 MG Tablet PO ×3 (03:07→19:34)
[2023-02-24] MEDS: traZODone 100 MG Tablet PO ×2 (03:10→22:02)
[2023-02-24] MEDS: 0.9% Saline Lock 10 ML Syringe IV ×2 (03:11→08:10)
[2023-02-24 03:18] LABS: Absolute Lymphocyte Count 2.45 X10^3/uL (0.83-4.51); Absolute Neutrophil Count 6.5 X10^3/uL (2.0-7.7); Basophil# 0.07 X10^3/uL; Basophil% 0.7 % (0-1); Eosinophil# 0.03 X10^3/uL; Eosinophils% 0.3 % (0-5); Hematocrit 41.6 % (40-54); Hemoglobin 14.5 g/dL (13.0-16.5); Lymphocyte # 2.45 X10^3/ul (0.83-4.51); Lymphocyte % 24.4 % (19-41); Mean Corp Hgb Conc 34.9 g/dL (32-36); Mean Corpuscular Hgb 30.3 pg (27.0-32.0); Mean Corpuscular Volume 86.8 fL (80-94); Mean Platelet Vol. 9.4 fl (6.2-12.0); Monocyte# 0.95 X10^3/uL; Monocyte% 9.5 % (0-10); NRBC Flagged by Analyzer 0 % (0-5); Neutrophil # 6.52 X10^3/uL (2.7-7.7); Neutrophil % 64.8 % (47-70); Platelet Count 413 K/mm3 (150-450); RBC Distribution Width SD 41.1 fl (35.1-43.9); Red Blood Count 4.79 M/mm3 (4.6-6.2); White Blood Count 10.1 K/mm3 (4.4-11.0)
[2023-02-24 03:22] LABS: POSITIVE COUNT NO; POSITIVE DIFFERENTIAL NO; POSITIVE MORPHOLOGY NO
[2023-02-24] MEDS: dilTIAZem 25 MG/5 ML Vial 20 MG IV BOLUS (03:29)
[2023-02-24] MEDS: Diltiazem 125 MG in Dextrose 5%-Water (100mL Bag) 100 ML CONT INF (03:30)
[2023-02-24 03:41] LABS: Anion Gap 13 (5-15); BUN 7 mg/dL (7-18); BUN/Creat Ratio 9.9 RATIO (10-20); Calcium,Total 8.4 mg/dL (8.5-10.1); Chloride 97 mmol/L (98-107); EST Glomerular Filtration Rate 125 mL/min (>60); Est Glom Filt Rate - Afr Amer 151 mL/min (>60); Estimated Creatinine Clearance 132.97 ml/min; Glucose 188 mg/dL (74-106); Potassium 3.3 mmol/L (3.5-5.1); Sodium Level 138 mmol/L (136-145)
[2023-02-24] MEDS: Potassium Chloride Oral Tablet 20 MEQ 40 MEQ PO ×2 (06:48→10:08)
[2023-02-24] MEDS: Enoxaparin 100 MG/ML Syringe SC ×2 (06:49→17:13)
[2023-02-24 06:51] LABS: Hemoglobin A1c 10.9 % (3.8-5.6)
[2023-02-24 07:49] LABS: Bedside Glucose 279 mg/dL (74-106)
[2023-02-24] MEDS: LORazepam 2 MG/ML Syringe 1 MG IV ×2 (08:10→23:21)
[2023-02-24] MEDS: Folic Acid 1 MG Tablet PO (08:44)
[2023-02-24] MEDS: Thiamine Hydrochloride 100 MG Tablet PO (08:44)
[2023-02-24] MEDS: Insulin Lispro 100 UNIT/ML INSULN.PEN SC ×2 (08:45→17:13)
[2023-02-24] MEDS: Insulin Glargine-YFGN 100 UNIT/ML Pen 30 UNIT SC ×2 (08:46→22:06)
[2023-02-24] MEDS: Gabapentin 300 MG Capsule PO ×2 (09:56→19:35)
[2023-02-24] MEDS: Phenobarbital Sodium 130 MG/ML Vial IM (11:16)
--- NOTE | 2023-02-24 13:12 | PCM.HOSP.N ---
Hospitalist Note Was seen and examined today, he was alert and oriented x3, I asked him about the narrative that was in his medical record that he threatened to hurt himself and wanted to , he flatly denies this, he states he cut his right upper arm on an object-he was drinking and he does not know what it was. Patient seems restless today, I administered 1 dose of IM phenobarbital in an effort to keep him off of Precedex drip. Patient will continue to be monitored for now in ICU, he may be able to be transferred to [place] [id number] as long as he does not show evidence of severe DTs.
[2023-02-24 13:42] LABS: Bedside Glucose 192 mg/dL (74-106)
--- NOTE | 2023-02-24 15:22 | CASEMGMT ---
ARTURO GARCIA Assessment: Face to Face with pt for initial transition planning/care coordination assessment. RN RADHA introduced self and role at [facility], pt voices understanding and consents to assessment. Pt is A&O x3 althought took a couple of times to get the year correct. Pt is very restless in bed. Care providers, pharmacy, and demographics verified/updated. Admitting Dx:alcohol withdrawal, tachycardia PCP:[facility] Specialists:Tino, psych; juan Ross Preferred Pharmacy:[facility] Insurance:Pt reports MMO but states he does not have his card with him. Prescription Benefit: yes LNOK:Carin Quiñonez, sig other Living Arrangements: Pt lives with sig other in a ground level apt with 3 steps to enter. Pt reports he is I in ADL's and denies concerns at home. Transportation: Pt drives self and denies concerns with transportation. DME:Denies HHC/SNF:Pt reports he has had HHC in the past but does not recall the name of the agency. Pt has been to [facility] in the past. Pt states no concerns with going home at time of dc. Pt states he drinks alot. When asked to describe pt states he drinks a quart of whiskey a day. Pt denies needing any resources for cessation. Pt denies smoking cigarettes or any other street or illegal drugs. Therapy to eval pt. Pt currently is on 5L oxygen. Pt states no further concerns/needs. CM to follow. Advised pt to ask CM if any further question/concerns/needs arise, voices understanding. Pt Goal:Home Plan:Home, pending therapy evals and follow for oxygen.
[2023-02-24 17:24] LABS: Bedside Glucose 209 mg/dL (74-106)
[2023-02-24] MEDS: Atorvastatin Calcium 40 MG Tablet PO (19:34)
[2023-02-24] MEDS: Dicyclomine 10 MG Capsule 20 MG PO (19:35)
[2023-02-24] MEDS: Lisinopril 40 MG Tablet PO (19:35)
[2023-02-24 22:29] LABS: Bedside Glucose 222 mg/dL (74-106)
[2023-02-25] VITALS (25 sets, daily range): BP systolic 99–141; BP diastolic 67–100; PULSE 55–107; RESP 15–31; TEMP 36.5–36.8; O2SAT 94–100; BMI 32.3
[2023-02-25] MEDS: dexMEDEtomidine 400 MCG in 0.9% Normal Saline (100mL Bag) 96 ML 12.8 MCG CONT INF (00:45)
[2023-02-25] MEDS: Phenobarbital 32.4 MG Tablet 64.8 MG PO ×6 (01:46→22:11)
--- NOTE | 2023-02-25 01:53 | NURSING ---
Pt increasingly agitated, pulling off telemetry and attempting to remove IV tubing; continuously attempting to get out of bed despite nursing redirection and medication administration; soft wrist restraints applied bilaterally.
--- NOTE | 2023-02-25 02:02 | PN.HOSP_ITS ---
Hospitalist Note Patient more agitated despite the phenobarbital. Precedex drip started. Despite the Precedex being initiated, patient still agitated requiring r estraints to protect himself from further injury due to his severe alcohol withdrawal.
[2023-02-25] MEDS: dexMEDEtomidine 1,000 MCG in 0.9% Normal Saline (250mL Bag) 240 ML 28.2 MCG CONT INF (03:00)
[2023-02-25] MEDS: 0.9% Normal Saline (1000mL) 1,000 ML 150 ML IV ×3 (05:52→18:51)
[2023-02-25] MEDS: Enoxaparin 100 MG/ML Syringe SC ×2 (05:53→17:25)
--- NOTE | 2023-02-25 07:03 | PCM.PN.HOSP ---
Reason for Visit Reason for Visit: Streaking Subjective Subjective Patient is a 52-year-old male who was brought to the emergency department on 02/24/2023 after being found by police running naked through town with his pants off. He was brought to the emergency department where he was found to be intoxicated. He also at that time expressed a desire to kill himself however he was intoxicated time. It was noted he had a laceration on his upper right arm which he reported was accidental and this was sutured in the emergency department. After several hours the patient became agitated and developed tachycardia. His heart rate was going up in the 160s and 170s and on EKG it appeared to be sinus tachycardia. He denied any associated symptoms. Additionally, his blood sugar was noted to be in the 500s and he was given 10 units of NovoLog subcu and IV fluids. Patient reported he drinks 2-4 [place], a gallon of whiskey and a half a gallon of vodka daily. He denied any other illicit substances. Vital signs on presentation showed temperature of 36 to 0.7 ?C, heart rate was 89, blood respiratory rate was 18, blood pressure was 115/90 and oxygen saturations were 98% on room air. His CBC was unremarkable other than elevated platelet count at 476,000 which has since resolved. Coags are unremarkable. His chemistry panel showed hyponatremia however this is likely pseudohyponatremia as his blood sugar was 594 and his serum sodium was 130. His serum creatinine was slightly up from baseline and he appeared to be mildly dehydrated and his transaminases were slightly elevated with an AST of 104 and an ALT of 73. Hemoglobin A1c was obtained and found to be 10.9. He was admitted to the medical floor and placed on a phenobarbital taper as well as supportive medications and thiamine and folate. An echocardiogram was obtained with his tachycardia and his EF was found to be 40% with mild global hypokinesia of the LV as well as mild concentric LVH and pulmonary artery systolic pressure of 44 mmHg. Since sobering up he adamantly denies suicidal ideation. He was significantly restless yesterday and 1 dose of IM phenobarbital was given and he was transferred to the ICU for more intensive monitoring. Unfortunately, the patient was still fairly agitated and showing signs of more significant DTs so Precedex drip was required to be initiated. He also was placed in restraints to protect him from injury to himself with his severe agitation. Precedex is currently being weaned. He was on 1 this morning and now down to 0.5. Still fairly somnolent. The goal is to get him awake but not agitated. Remains in restraints at this time Objective Data Objective Data Vital Signs: Vital Signs Temp Pulse Resp BP Pulse Ox O2 Del Method O2 Flow Rate 97.8 F 57 L 24 H 117/89 H 94 Nasal Cannula 4 02/25/23 04:00 02/25/23 07:00 02/25/23 07:00 02/25/23 07:00 02/25/23 07:00 02/25/23 07:00 02/25/23 07:00 Oxygen Flow Rate (L/min) 4 Oxygen Delivery Method Nasal Cannula Weight: 104.7 kg Body Mass Index (BMI) 32.3 Intake & Output: Intake and Output for Last 24 Hours 02/23/23 02/24/23 02/25/23 23:59 23:59 23:59 Intake Total 4442.50 / 4442.50 1094.75 / 1094.75 Output Total 1200 / 1200 1000 / 1000 Balance 3242.50 / 3242.50 94.75 / 94.75 Lab / Micro Data 02/24/23 03:10 02/24/23 03:10 Labs: Laboratory Results - last 24 hr 02/24/23 07:31: POC Glucose 279 H 02/24/23 13:24: POC Glucose 192 H 02/24/23 17:04: POC Glucose 209 H 02/24/23 22:05: POC Glucose 222 H Radiography Diagnostic Testing: Radiology Impression Echocardiogram 02/24/23 02:38 Interpretation Summary Normal LV size. The estimated ejection fraction is 40 %. There is mild global hypokinesis of the left ventricle. Mild concentric left ventricular hypertrophy. Pulmonary artery systolic pressure is 44 mmHg. Contrast injection was performed. Ordering Physician: Bill Moran Referring Physician: Oleghe, Efewongbe Performed By: Michelle Stanley RDCS Physical Exam Const no apparent distress and well nourished Constitutional Narrative: Sedated, middle-aged, white male, lying in bed, currently appears comfortable and nonagitated, nursing at bedside HEENT head/scalp atraumatic Head and Scalp: normocephalic Resp normal respiratory effort, no retractions, no use of accessory muscles and clear to auscultation bilaterally Auscultation: Negative for rales, rhonchi or wheezes Cardio regular rhythm, S1 normal heart sound, S2 normal heart sound, no murmurs, no rub, no gallops and no clicks Cardio Narrative: Mild sinus bradycardia GI normal to inspection, nondistended, normoactive bowel sounds, soft to palpation and non-tender Extremity no clubbing, cyanosis or edema Extremity Narrative: Pedal pulse is are 2+ Neuro Neuro Narrative: Sedated, intermittently moves extremities spontaneously, currently unable to follow commands Psych Psych Narrative: Unable to assess Assessment & Plan Assessment/Plan (1) Alcohol withdrawal: QUALIFIERS: Complication of substance-induced condition: uncomplicated Qualified Code(s): F10.930 - Alcohol use, unspecified with withdrawal, uncomplicated (2) Laceration of right upper arm: (3) Chronic atrial fibrillation with RVR: (4) DTs (delirium tremens): (5) Cardiomyopathy: PLAN: Plan DTs secondary to severe alcohol withdrawal -Will maintain on Precedex for now but wean -Continue phenobarbital taper -Continue thiamine and folate -Continue supportive medications for withdrawal symptoms -180 consultation is pending Atrial fibrillation -Suspect related to alcohol toxicity -Currently in sinus bradycardia -Bradycardia is likely related to his beta-jovanny and Precedex -Will transition from metoprolol to carvedilol with echo findings -Patient is on therapeutic Lovenox--> chads 2 score is 2 Cardiomyopathy -Type unclear however suspect nonischemic -EF is 40% on echocardiogram with global LV dysfunction -Suspect related to alcohol use and or tachycardia mediated with A-fib -Recommend appropriate goal-directed therapy with repeat echocardiogram in 6 to 8 weeks -Transition metoprolol to tartrate to carvedilol 12.5 mg daily -Hold lisinopril for now with borderline blood pressures given the addition of Precedex but plan on restarting after off Precedex -Will need cardiology follow-up after discharge -Would tentatively plan for 6 to 8 weeks of goal-directed therapy with repeat echocardiogram [id number] -Blood sugars were markedly elevated on presentation -Home compliance is questionable -Blood sugars are overall improved on insulin at 30 units SQ twice daily of glargine and SSI -If patient is not able to eat due to mental status on Precedex and with DTs may need to decrease insulin dosing but will monitor -Restart home Jardiance with depressed EF -Hold metformin while hospitalized -Continue to monitor sugars as ordered -Cardiac/carb controlled diet HTN -Blood pressures are on the lower side right now due to the use of Precedex -Will continue beta-jovanny but transition from metoprolol to carvedilol -Hold lisinopril -Hold home HCTZ and amlodipine Hyperlipidemia -Continue home atorvastatin GERD -Continue home PPI History of CASE -Suspect patient noncompliant -May need to utilize CPAP if more somnolent Osteoarthritis -Hold home meloxicam -As needed Tylenol History of tobacco abuse -Quit in 2018 -Recommend ongoing cessation Obesity -BMI 32.2 -Recommend weight loss -Complicates treatment, prognosis, outcomes DVT prophylaxis -Patient is on therapeutic Lovenox due to his development of A-fib -We will continue at this time with plans to transition to enoxaparin CODE STATUS Full code Charges/Coding Visit Charges Inpatient E&M: 45164 Subs Hosp L2
[2023-02-25 09:14] LABS: Bedside Glucose 173 mg/dL (74-106)
--- NOTE | 2023-02-25 09:20 | CASEMGMT ---
Social Work SW spoke w/RN, pt now on Precedex and is not able to speak w/SW at this time. SW will continue to follow. BARRINGTON Junior
[2023-02-25] MEDS: Folic Acid 1 MG Tablet PO (11:49)
[2023-02-25] MEDS: Thiamine Hydrochloride 100 MG Tablet PO (11:49)
[2023-02-25] MEDS: Fenofibrate 145 MG Tablet PO (11:52)
[2023-02-25] MEDS: Carvedilol 12.5 MG Tablet PO ×2 (11:52→22:10)
[2023-02-25 12:27] LABS: Bedside Glucose 186 mg/dL (74-106)
[2023-02-25] MEDS: Insulin Lispro 100 UNIT/ML INSULN.PEN SC ×2 (14:37→17:25)
[2023-02-25] MEDS: Insulin Glargine-YFGN 100 UNIT/ML Pen 30 UNIT SC ×2 (14:39→22:10)
[2023-02-25] MEDS: Atorvastatin Calcium 40 MG Tablet PO (22:11)
[2023-02-25 22:38] LABS: Bedside Glucose 299 mg/dL (74-106)
[2023-02-25] MEDS: 0.9% Saline Lock 10 ML Syringe IV (23:10)
[2023-02-25] MEDS: LORazepam 2 MG/ML Syringe 1 MG IV (23:11)
[2023-02-25] MEDS: dexMEDEtomidine 1,000 MCG in 0.9% Normal Saline (250mL Bag) 240 ML 33.4 MCG CONT INF (23:46)
[2023-02-25] MEDS: Gabapentin 300 MG Capsule PO (23:54)
[2023-02-25] MEDS: traZODone 100 MG Tablet PO (23:54)
[2023-02-25] MEDS: hydrOXYzine PAM 25 MG Capsule 50 MG PO (23:54)
[2023-02-26] VITALS (38 sets, daily range): BP systolic 91–135; BP diastolic 70–99; PULSE 70–88; RESP 12–39; TEMP 36.8–39.2; O2SAT 86–99; BMI 32.5
--- NOTE | 2023-02-26 00:47 | PCM.HOSP.N ---
Hospitalist Note Patient continues to be very agitated and yelling out getting out of bed. Patient is at risk for further falls and injuries from falls given his delirium tremens. Patient will continue to have restraints and restraint form was signed earlier this morning. Given his severe agitation despite the the dexmedetomidine drip, which is currently maxed out, and still agitated despite the lorazepam. Will give the patient a one-time dose of Geodon. Also increase his lorazepam from 1 mg to 2 mg IV every 4 hours as needed.
[2023-02-26] MEDS: Ziprasidone IM 20 MG/ML VIAL IM (01:06)
[2023-02-26] MEDS: 0.9% Normal Saline (1000mL) 1,000 ML 150 ML IV (01:39)
[2023-02-26] MEDS: 0.9% Saline Lock 10 ML Syringe IV ×5 (02:27→23:34)
[2023-02-26] MEDS: LORazepam 2 MG/ML Syringe IV ×2 (02:27→12:05)
[2023-02-26 05:20] LABS: Bedside Glucose 193 mg/dL (74-106)
[2023-02-26] MEDS: Enoxaparin 100 MG/ML Syringe SC ×2 (06:48→17:46)
[2023-02-26 07:04] LABS: Absolute Lymphocyte Count 1.75 X10^3/uL (0.83-4.51); Absolute Neutrophil Count 7.8 X10^3/uL (2.0-7.7); Basophil# 0.06 X10^3/uL; Basophil% 0.6 % (0-1); Eosinophil# 0.17 X10^3/uL; Eosinophils% 1.6 % (0-5); Hematocrit 36.7 % (40-54); Hemoglobin 12.4 g/dL (13.0-16.5); Lymphocyte # 1.75 X10^3/ul (0.83-4.51); Lymphocyte % 16.7 % (19-41); Mean Corp Hgb Conc 33.8 g/dL (32-36); Mean Corpuscular Hgb 30.2 pg (27.0-32.0); Mean Corpuscular Volume 89.5 fL (80-94); Mean Platelet Vol. 10.5 fl (6.2-12.0); Monocyte# 0.64 X10^3/uL; Monocyte% 6.1 % (0-10); NRBC Flagged by Analyzer 0 % (0-5); Neutrophil # 7.79 X10^3/uL (2.7-7.7); Neutrophil % 74.5 % (47-70); Platelet Count 330 K/mm3 (150-450); RBC Distribution Width CV 13.2 % (11.6-14.6); RBC Distribution Width SD 43.1 fl (35.1-43.9); White Blood Count 10.5 K/mm3 (4.4-11.0)
--- NOTE | 2023-02-26 07:13 | RAD_ITS ---
INDICATION: hypoxia EXAMINATION/TECHNIQUE: X-RAY - AP view chest COMPARISON: Two-view chest x-ray from 02/25/2020 FINDINGS: LINES/DEVICES: None. LUNGS: Bilateral perihilar interstitial prominence with bibasilar pulmonary opacities. Mild peripheral interstitial septal thickening/edema. Small pleural effusions also noted. No pneumothorax detected. MEDIASTINUM AND CARDIOVASCULAR STRUCTURES: Heart size upper limits normal, magnified by imaging technique. Central airways and mediastinal contour are unremarkable. BONES AND SOFT TISSUES: No acute findings. RAD/Chest 1 View (Portable) IMPRESSION: Mild pulmonary edema and small pleural effusions. Superimposed bibasilar atelectasis versus infiltrate. Electronically Signed: Jon Thrasher MD at 7:57 EST ,
[2023-02-26] MEDS: dexMEDEtomidine 1,000 MCG in 0.9% Normal Saline (250mL Bag) 240 ML 25.7 MCG CONT INF (07:19)
--- NOTE | 2023-02-26 07:37 | NURSING ---
1929- upon entering room pt A+Ox3, sl agitated but able to follow commands and interact. 2114- pt became very agitated, verbally abusive to staff, resistive to care, pulling and tugging at lines. Increased ativan per protocol 2310- pt continuing to be aggressive and resistive to care, ativan given per MAR, after 30 mins pt continuing as before, precedex continued to be increased. This RN staying bedside to try to decrease pt anxiety 2353- pt received PRN's vistaril, gabapentin and Neurontin 2354- Dr. Moran contacted to get order for 2 pt soft restraints to prevent pt from harming himself/ pulling lines, restraints applied and restraint order signed @ 0007 0015- precedex maxed per emar pt continually thrashing around, pulling lines and being uncooperative, Dr. Moran contacted for further orders 0106- 20mg IM Geodon given per Dr. Moran no change in pt behavior Dr. moran paged to floor d/t patient's agitation, restlessness and anger depsite being maxed on precedex and being given supplemental PRN medications. Dr. Powell bedside and signed order for 4 pt nonviolent soft restraints at 0210, restraints applied. Dr. Moran remained on the floor d/t another pt 0243- pt given 2mg IV ativan ordered verbally by Dr. Moran d/t continued agitation, ineffective to pt's behavior at approximately 0545, pt began to rest, w/ rest pt started to desat to mid 80's, repsirations increased to 30-40 per minute, Dr. moran contacted Dr. moran ordered this RN to continue to monitor the patient 0620- pt saturations dropping to 80 on 6L NC, pt placed on 10L high flow NC, pt difficult to awaken w/ sternal rub and painful stimuli, dr. moran contacted. Pt saturations improved w/ awakening, respirations remain to be high, at this time Dr. Moran stated that this RN should continue to monitor the pt and that his desaturation is most likely due to the combination of medications and likely sleep apnea. This RN remained bedside w/ sitter Terry Cm RN and PERSON[employer] Richard Rebollar. Dr. Smith, oncoming hospitalist, made aware of situation. At this time Dr. Smith gave order to this RN to obtain an ABG. Pt placed on non rebreather 8L 40% d/t open mouthed breathing, pt satting in mid 90's
[2023-02-26 08:12] LABS: Bedside Glucose 120 mg/dL (74-106)
[2023-02-26] MEDS: Ampicillin/Sulbactam 3 GM in 0.9% Normal Saline (100mL MB+) 100 ML IV ×4 (08:26→23:35)
[2023-02-26] MEDS: Furosemide 40 MG/4 ML Vial IV ×3 (08:29→17:45)
[2023-02-26 08:31] LABS: Allen Test Positive; Base Excess 0 mmol/L (-2 to +2); Blood Gas Specimen Type ART; Mode Not entered; O2 Delivery Device Venti Mask; PO2 58 mmHG (75-100); SITE L Radial; SO2 91 % (95-99); Total Carbon Dioxide 25 mmol/L; pCO2 36.1 mmHg (35-45); pH 7.43 (7.35-7.45)
[2023-02-26] MEDS: Lidocaine Jelly 2% 20 ML Syringe (URO-JET) 1 APPLIC TOPICAL (08:31)
[2023-02-26] MEDS: Phenobarbital Sodium 65 MG/ML Vial 32.4 MG IV ×4 (09:10→23:55)
[2023-02-26 09:24] LABS: ALB/GLOB Ratio 0.7 RATIO (0.9-2.4); AST(SGOT) 58 U/L (15-37); Alanine Aminotransfer ALT/SGPT 54 U/L (16-61); Albumin, Serum 2.5 g/dL (3.2-5.0); Alkaline Phosphatase 70 U/L (45-117); Anion Gap 8 (5-15); BUN 12 mg/dL (7-18); Calcium,Total 7.9 mg/dL (8.5-10.1); Chloride 111 mmol/L (98-107); Creatinine, Serum 0.67 mg/dL (0.70-1.30); EST Glomerular Filtration Rate 133 mL/min (>60); Est Glom Filt Rate - Afr Amer 161 mL/min (>60); Estimated Creatinine Clearance 138.92 ml/min; Globulin 3.5 g/dL (2.2-4.2); Glucose 125 mg/dL (74-106); Magnesium 1.5 mg/dL (1.6-2.6); Potassium 3.4 mmol/L (3.5-5.1); Sodium Level 142 mmol/L (136-145); Thyroid Stim Hormone (TSH) 4.04 uIU/mL (0.358-3.74)
[2023-02-26 09:48] LABS: BNP,B-Type NATRIURETIC PEPTIDE 662.6 pg/mL (0-100)
[2023-02-26 11:58] LABS: Allen Test Positive; Base Excess -1 mmol/L (-2 to +2); Bicarbonate 22.1 mmol/L (22-26); Blood Gas Specimen Type ART; Mode Not entered; O2 Delivery Device HFNC; PO2 69 mmHG (75-100); SITE R Radial; SO2 95 % (95-99); Total Carbon Dioxide 23 mmol/L; pCO2 28.2 mmHg (35-45)
[2023-02-26] MEDS: Ipratropium/Albuterol Sulfate 3 ML AMPUL.NEB INHALATION ×2 (12:06→20:02)
--- NOTE | 2023-02-26 12:10 | PN.HOSP_ITS ---
Reason for Visit Reason for Visit: Acute alcohol withdrawal/streaking Subjective Subjective Patient became agitated overnight and was yelling and getting out of bed. Restraints were continued and given his severe agitation despite Precedex and Ativan a one-time dose of Geodon was given. Also his lorazepam was increased in dosage from 1 to 2 mg. He did remain agitated despite the Geodon and additional lorazepam was given. This morning he is quite somnolent and tachypneic. He did develop hypoxia and was on 10 L high flow nasal cannula. Appears to be volume overloaded and diuresis was initiated. Objective Data Objective Data Vital Signs: Vital Signs Temp Pulse Resp BP Pulse Ox O2 Del Method O2 Flow Rate 98.2 F 79 35 H 122/81 H 96 Venturi Mask 4 02/26/23 06:00 02/26/23 09:08 02/26/23 09:08 02/26/23 06:00 02/26/23 09:08 02/26/23 07:42 02/26/23 04:00 FiO2 44 02/26/23 09:08 Oxygen Flow Rate (L/min) 4 Oxygen Delivery Method Venturi Mask Weight: 105.9 kg Body Mass Index (BMI) 32.5 Intake & Output: Intake and Output for Last 24 Hours 02/24/23 02/25/23 02/26/23 23:59 23:59 23:59 Intake Total 4442.50 / 4442.50 3182.00 / 3189.79 1360.42 / 1360.42 Output Total 1200 / 1200 3300 / 3300 1550 / 1550 Balance 3242.50 / 3242.50 -118.00 / -110.21 -189.58 / -189.58 Lab / Micro Data 02/26/23 06:57 02/26/23 06:57 Labs: Laboratory Results - last 24 hr 02/25/23 12:09: POC Glucose 186 H 02/25/23 17:24: POC Glucose 193 H 02/25/23 21:56: POC Glucose 299 H 02/26/23 06:57: WBC 10.5, RBC 4.10 L, Hgb 12.4 L, Hct 36.7 L, MCV 89.5, MCH 30.2, MCHC 33.8, RDW Std Deviation 43.1, RDW Coeff of Eliezer 13.2, Plt Count 330, MPV 10.5, Immature Gran % (Auto) 0.500, Neut % (Auto) 74.5 H, Lymph % (Auto) 1 6.7 L, [place] % (Auto) 6.1, Eos % (Auto) 1.6, Baso % (Auto) 0.6, Absolute Neuts (auto) 7.8 H, Absolute Lymphs (auto) 1.75, Nucleated RBC % 0, Sodium 142, Po tassium 3.4 L, Chloride 111 H, Carbon Dioxide 23.0, Anion Gap 8, BUN 12, Creatinine 0.67 L, Estim Creat Clear Calc 138.92, Est GFR (MDRD) Af Amer 161, Est GFR (MDRD) Non-Af 133, BUN/Creatinine Ratio 18.0, Glucose 125 H, Calcium 7.9 L, Phosphorus 2.0 L, Magnesium 1.5 L, Total Bilirubin 0.70, AST 58 H, ALT 54, Alkaline Phosphatase 70, Total Protein 6.0 L, Albumin 2.5 L, Globulin 3.5, Albumin/Globulin Ratio 0.7 L, TSH 4.04 H 02/26/23 07:54: POC Glucose 120 H 02/26/23 08:00: B-Natriuretic Peptide 662.6 H Micro: Microbiology 02/26/23 09:15 Nasal Secretion SARS-CoV-2 Antigen (Rapid) - Final ABG Data ABG results: ABG 02/26/23 02/26/23 08:28 11:55 Specimen Type ART ART Sample Site L Radial R Radial pH 7.43 7.50 H Bicarbonate Actual 24.0 22.1 Total CO2 25 23 Base Excess 0 -1 O2 Saturation 91 L 95 O2 % 40.0 65.0 ABG pCO2 36.1 28.2 L ABG pO2 58 L 69 L Willi Test Positive Positive O2 Delivery Device Venti Mask HFNC Vent Mode Not entered Not entered Clinical Comments AIRVO 50lpm Radiography Diagnostic Testing: Radiology Impression Chest X-Ray 02/26/23 07:13 IMPRESSION: Mild pulmonary edema and small pleural effusions. Superimposed bibasilar atelectasis versus infiltrate. Electronically Signed: Jon Thrasher MD at 7:57 EST , Physical Exam Const Constitutional Narrative: Somnolent, middle-aged, white male, with tachypnea but no signs of retractions, nontoxic-appearing Orientation / Consciousness: confused HEENT head/scalp atraumatic and moist oral mucous membranes Head and Scalp: normocephalic Resp No normal respiratory effort, no retractions, no use of accessory muscles and No clear to auscultation bilaterally Resp Narrative: Tachypneic with crackles bilaterally especially at the bases, no wheeze or rhonchi Auscultation: crackles; Negative for rhonchi or wheezes Cardio regular rate, regular rhythm, S1 normal heart sound, S2 normal heart sound, no murmurs, no rub, no gallops and no clicks GI normal to inspection, nondistended, normoactive bowel sounds, soft to palpation and non-tender GI Narrative: Old midline incision noted Extremity no clubbing, cyanosis or edema Extremity Narrative: Right transmetatarsal amputation noted from previous well-healed, pedal pulses are 2+ bilaterally Neuro Neuro Narrative: Patient extremely somnolent at this time likely related to medications given overnight, confused but does get agitated with stimuli, moves all extremities spontaneously but not to command, patient does verbalize however it is nonsensical Psych Psych Narrative: Difficult to assess Assessment & Plan Assessment/Plan (1) Cardiomyopathy: (2) DTs (delirium tremens): (3) Alcohol withdrawal: QUALIFIERS: Complication of substance-induced condition: uncomplicated Qualified Code(s): F10.930 - Alcohol use, unspecified with withdrawal, uncomplicated (4) Acute HFrEF (heart failure with reduced ejection fraction): (5) Aspiration into airway: (6) Metabolic encephalopathy: (7) Acute hypoxic respiratory failure: PLAN: Plan Acute hypoxic respiratory failure secondary to volume overload +/- aspiration -Patient may require intubation however trying to get by without having to intubate -Will continue to monitor clinical status with treatment as noted below -ABG shows hypoxia but no hypercapnia was placed on heated high flow nasal cannula -BNP is markedly elevated and chest x-ray is consistent with volume overload -Lasix IV push x 1 dose given with good response and will continue twice daily -Start Unasyn 3 g every 6 hours for possible aspiration -Patient is currently on Airvo at 65%--> wean as able -Consult critical/pulmonary medicine DTs secondary to severe alcohol withdrawal -Continue Precedex -Continue phenobarbital taper and transition to IV -Ativan as needed per CIWA -May require intubation for severe DTs depending on clinical status as noted above -Continue thiamine and folate but transition to IV -Continue supportive medications for withdrawal symptoms -180 consultation is pending Atrial fibrillation -Suspect related to alcohol toxicity -Currently in sinus bradycardia -Bradycardia is likely related to his beta-jovanyn and Precedex -Will transition from metoprolol to carvedilol with echo findings -Patient is on therapeutic Lovenox--> chads 2 score is 2 Cardiomyopathy -Type unclear however suspect nonischemic -EF is 40% on echocardiogram with global LV dysfunction -Suspect related to alcohol use and or tachycardia mediated with A-fib -Recommend appropriate goal-directed therapy with repeat echocardiogram in 6 to 8 weeks -Hold oral medication and schedule IV metoprolol -Hold lisinopril for now with borderline blood pressures given the addition of Precedex but plan on restarting after off Precedex -Will need cardiology follow-up after discharge -Would tentatively plan for 6 to 8 weeks of goal-directed therapy with repeat echocardiogram [id number] -Blood sugars were markedly elevated on presentation -Home compliance is questionable -Blood sugars are overall improved on insulin at 30 units SQ twice daily of glargine and SSI -If patient is not able to eat due to mental status on Precedex and with DTs may need to decrease insulin dosing but will monitor -Hold Jardiance -Hold metformin while hospitalized -Continue to monitor sugars as ordered -Cardiac/carb controlled diet HTN -Blood pressures are on the lower side right now due to the use of Precedex -Discontinue carvedilol and start IV metoprolol -Hold lisinopril -Hold home HCTZ and amlodipine Hyperlipidemia -Continue home atorvastatin GERD -Continue home PPI but transition to IV History of CASE -Suspect patient noncompliant -May need to utilize CPAP if more somnolent Osteoarthritis -Hold home meloxicam -As needed Tylenol History of tobacco abuse -Quit in 2018 -Recommend ongoing cessation Obesity -BMI 32.2 -Recommend weight loss -Complicates treatment, prognosis, outcomes DVT prophylaxis -Patient is on therapeutic Lovenox due to his development of A-fib -We will continue at this time with plans to transition to enoxaparin CODE STATUS Full code
[2023-02-26] MEDS: fentaNYL drip 100 ML 5 MCG CONT INF (12:30)
[2023-02-26] MEDS: Propofol 200 MG/20 ML Vial 60 MG IV BOLUS (12:35)
[2023-02-26] MEDS: Propofol 200 MG/20 ML Vial 40 MG IV BOLUS (12:45)
[2023-02-26 12:49] LABS: Bedside Glucose 96 mg/dL (74-106)
--- NOTE | 2023-02-26 12:55 | RAD_ITS ---
EXAM: XR CHEST, 1 VIEW CLINICAL INDICATION: ET Tube placement TECHNIQUE: Frontal view of the chest. COMPARISON: 02/26/2023 at 7:08 AM. FINDINGS: LUNGS AND PLEURAL SPACES: Ill-defined interstitial infiltrates in both lungs are unchanged. No pneumothorax. No effusion. HEART: Cardiomegaly is unchanged. MEDIASTINUM: Central airways and mediastinal contour are unremarkable. BONES/JOINTS: Unremarkable. No acute fracture. SOFT TISSUES: Unremarkable. TUBES, LINES AND DEVICES: ET tube tip is 4 cm above the lucila. OG tube courses down towards the abdomen. RAD/Chest 1 View (Portable) IMPRESSION: 1. Satisfactory placement of ET tube. 2. OG tube courses down towards the abdomen but exact location is uncertain since the abdomen is not included. 3. Suspicious interstitial pneumonitis in both lungs without obvious significant change. Electronically Signed: David Chowdhury MD at 13:39 EST ,
[2023-02-26] MEDS: Propofol 10MG/Ml 1,000 MG/100 ML Bottle 6.4 MG CONT INF (13:30)
[2023-02-26] MEDS: Potassium Chloride Oral Soln 20 MEQ/15 ML UDC 40 MEQ GT (13:33)
--- NOTE | 2023-02-26 13:34 | PCM.HOSP.N ---
Hospitalist Note Intubation Indication: Acute respiratory failure Consent was obtained from: Emergent The patient was placed in the appropriate sniffing position. The patient had continuous cardiac as well as pulse oximetry monitoring during the procedure. Procedure sedation was provided by the administration of propofol 60 mg. Direct laryngoscopy was then performed using a number 4 blade, which revealed a grade 2 view. A 7.5 mm endotracheal tube was visualized advancing between the cords to the level of 24 cm at the lip. The stylette was then removed and discarded. Tube placement was confirmed by fogging in the tube along with equal and bilateral breath sounds. Colorimetric change was visualized on the CO2 meter. The cuff was then inflated and the tube secured using a commercially available device. A good pulse oximetry waveform was seen on the monitor throughout the procedure. A portable chest x-ray has been ordered to confirm appropriate placement. The patient tolerated the procedure well. Procedures Hospitalists Procedures: 50420 Insert Emergency Airway
[2023-02-26] MEDS: dexMEDEtomidine 1,000 MCG in 0.9% Normal Saline (250mL Bag) 240 ML 38.5 MCG CONT INF (13:47)
[2023-02-26 14:16] LABS: Allen Test Positive; Base Excess 1 mmol/L (-2 to +2); Bicarbonate 24.4 mmol/L (22-26); Blood Gas Specimen Type ART; Mode AC; O2 Delivery Device ET Tube; PEEP 5; PO2 109 mmHG (75-100); RR 12; SITE L Radial; SO2 99 % (95-99); Total Carbon Dioxide 25 mmol/L; pCO2 34.6 mmHg (35-45); pH 7.46 (7.35-7.45)
[2023-02-26] MEDS: Thiamine Hydrochloride 200 MG in 0.9% Normal Saline (50mL Bag) 50 ML IV ×2 (15:35→23:14)
--- NOTE | 2023-02-26 16:12 | NURSING ---
Addendum entered by Deya Dumont 02/26/23 17:13: correction #7.5 OET 24cm at lip Original Note: 1230 Dr. Smith at bedside 1235 60mg propofol given #8 OET 22cm at lip good color change 1245 40mg propofol given
[2023-02-26] MEDS: Metoprolol Tartrate 5 MG/5 ML Vial IV ×2 (17:46→23:35)
[2023-02-26 18:23] LABS: Bedside Glucose 129 mg/dL (74-106)
[2023-02-26] MEDS: Propofol 10MG/Ml 1,000 MG/100 ML Bottle 15.9 MG CONT INF (22:36)
[2023-02-26] MEDS: dexMEDEtomidine 1,000 MCG in 0.9% Normal Saline (250mL Bag) 240 ML 15.4 MCG CONT INF (22:36)
[2023-02-26] MEDS: Chlorhexidine 15 ML PO (23:30)
[2023-02-27] VITALS (36 sets, daily range): BP systolic 80–128; BP diastolic 61–91; PULSE 63–88; RESP 12–20; TEMP 37.6–38.1; O2SAT 88–98; BMI 31.4
[2023-02-27] MEDS: Propofol 10MG/Ml 1,000 MG/100 ML Bottle 15.9 MG CONT INF (03:04)
[2023-02-27 04:47] LABS: Bedside Glucose 141 mg/dL (74-106)
[2023-02-27 04:49] LABS: Absolute Lymphocyte Count 2.28 X10^3/uL (0.83-4.51); Absolute Neutrophil Count 5.4 X10^3/uL (2.0-7.7); Basophil# 0.08 X10^3/uL; Basophil% 0.9 % (0-1); Eosinophil# 0.14 X10^3/uL; Eosinophils% 1.6 % (0-5); Hematocrit 41.4 % (40-54); Hemoglobin 13.8 g/dL (13.0-16.5); Lymphocyte # 2.28 X10^3/ul (0.83-4.51); Lymphocyte % 26.6 % (19-41); Mean Corp Hgb Conc 33.3 g/dL (32-36); Mean Corpuscular Hgb 30.1 pg (27.0-32.0); Mean Corpuscular Volume 90.2 fL (80-94); Mean Platelet Vol. 10.4 fl (6.2-12.0); Monocyte# 0.68 X10^3/uL; Monocyte% 7.9 % (0-10); NRBC Flagged by Analyzer 0 % (0-5); Neutrophil # 5.35 X10^3/uL (2.7-7.7); Neutrophil % 62.5 % (47-70); Platelet Count 353 K/mm3 (150-450); RBC Distribution Width CV 13.8 % (11.6-14.6); RBC Distribution Width SD 45.1 fl (35.1-43.9); Red Blood Count 4.59 M/mm3 (4.6-6.2); White Blood Count 8.6 K/mm3 (4.4-11.0)
[2023-02-27 05:07] LABS: ALB/GLOB Ratio 0.6 RATIO (0.9-2.4); AST(SGOT) 52 U/L (15-37); Alanine Aminotransfer ALT/SGPT 59 U/L (16-61); Albumin, Serum 2.6 g/dL (3.2-5.0); Alkaline Phosphatase 74 U/L (45-117); Anion Gap 12 (5-15); BUN 15 mg/dL (7-18); BUN/Creat Ratio 19.8 RATIO (10-20); Calcium,Total 7.8 mg/dL (8.5-10.1); Chloride 107 mmol/L (98-107); Creatinine, Serum 0.76 mg/dL (0.70-1.30); EST Glomerular Filtration Rate 115 mL/min (>60); Est Glom Filt Rate - Afr Amer 139 mL/min (>60); Estimated Creatinine Clearance 122.47 ml/min; Glucose 148 mg/dL (74-106); Potassium 2.9 mmol/L (3.5-5.1); Protein, Total 6.6 g/dL (6.4-8.2); Sodium Level 144 mmol/L (136-145)
[2023-02-27] MEDS: Thiamine Hydrochloride 200 MG in 0.9% Normal Saline (50mL Bag) 50 ML IV ×3 (06:17→20:27)
[2023-02-27] MEDS: Phenobarbital Sodium 65 MG/ML Vial 32.4 MG IV ×3 (06:19→18:04)
[2023-02-27] MEDS: Metoprolol Tartrate 5 MG/5 ML Vial IV ×2 (06:19→12:08)
[2023-02-27] MEDS: Enoxaparin 100 MG/ML Syringe SC ×2 (06:20→18:11)
[2023-02-27] MEDS: 0.9% Saline Lock 10 ML Syringe IV ×3 (06:24→18:19)
[2023-02-27] MEDS: Ampicillin/Sulbactam 3 GM in 0.9% Normal Saline (100mL MB+) 100 ML IV ×3 (06:24→18:14)
[2023-02-27 06:42] LABS: CPK Total, Creatine Kinase 298 U/L (39-308); Triglycerides 201 mg/dL
[2023-02-27 06:47] LABS: Bedside Glucose 135 mg/dL (74-106)
[2023-02-27] MEDS: Ipratropium/Albuterol Sulfate 3 ML AMPUL.NEB INHALATION ×2 (07:05→13:10)
--- NOTE | 2023-02-27 07:17 | EX.PCM.CONCC ---
Assessment & Plan Assessment/Plan (1) Acute hypoxic respiratory failure: PLAN: Plan RECOMMENDATIONS: 1. Continue assist-control mode of mechanical ventilation. Wean FiO2 and PEEP for saturations greater than 90%. 2. Diuresis as tolerated by hemodynamics and renal function. 3. Empiric antimicrobials, pending finalized culture results. 4. Continue scheduled bronchodilators. 5. Continue appropriate ICU prophylaxis. IMPRESSIONS: 1. Acute hypoxemic respiratory failure The patient was initially intubated in the setting of worsening hypoxemia and profound agitation secondary to acute alcohol withdrawal. Supplemental fluids have been discontinued and the patient was initiated on appropriate diuretic therapy. Plan to continue supportive measures including assist-control mode of mechanical ventilation. FiO2 and PEEP will be weaned to maintain oxygen saturations at or above 90%. Continue empiric antimicrobials, pending finalized culture results, over concerns for potential aspiration. 2. Acute alcohol withdrawal The patient had severe DTs, despite phenobarbital taper. Plan to continue current sedation regimen along with thiamine and folic acid supplementation. Nutritional support via tube feeding can be started from my perspective. The patient will need to be monitored closely for electrolyte abnormalities. 3. Cardiomyopathy/heart failure with reduced ejection fraction Continue current supportive measures along with diuretics as tolerated. 4. History of diabetes mellitus/obstructive sleep apnea/GERD/hypertension/tobacco dependency in remission Complicates care, management, recovery and prognosis. Continue home medications as indicated. TIME: 33 minutes of critical care time, independent of procedures, was spent addressing the patient's acute hypoxemic respiratory failure, acute alcohol withdrawal, review of all data and collaboration with the care team. HPI Consult Data Date of Consult: 02/27/23 HPI Narrative Reason for Consultation: Acute respiratory failure HPI Narrative: The patient is a 52-year-old male, with a history as outlined below, who presented initially to the emergency department on February 24 after being found by his local police in an altered state without any close on. He was noted to be acutely intoxicated at that time and was expressing suicidal ideations. The patient has a longstanding alcohol abuse history, and according to documentation, drinks a significant amount of whiskey, vodka and 4 [place]'s daily. The patient does have a known history of obstructive sleep apnea and is currently followed in the pulmonary medicine clinic on an outpatient basis. The patient was initially admitted to the hospital and placed on a phenobarbital taper as well as supportive medications with thiamine and folate. Subsequent echocardiogram demonstrated an ejection fraction of 40% and a pulmonary artery systolic pressure 44 mmHg. Due to his significant agitation, the patient ultimately required transfer to the ICU to be placed on a Precedex infusion. Unfortunately, the patient had been initially maintained on continuous IV fluids and appeared to have developed a volume overloaded state. Attempts were made to diurese the patient. However, the patient developed worsening hypoxemia and medication refractory agitation, which culminated in his intubation on February 26. This morning, the patient has a low-grade fever but remains otherwise hemodynamically stable on assist control mode of mechanical ventilation with an FiO2 requirement of 50%. He is currently sedated on a combination of propofol, Precedex and fentanyl. Potassium is low this morning at 2.9. Sputum culture is currently pending. [facility] Medical History Abdominal pain Arthritis Chronic pain Depression Diabetes GERD (gastroesophageal reflux disease) HTN (hypertension), benign Hyperlipidemia Screening for colon cancer Seizure disorder Sleep apnea Urinary urgency Ventral hernia Home Medications compress.stocking,knee,reg,lrg #2 ea 05/18/18 [Rx Last Taken Unknown] dextroamphetamine-amphetamine ER 50 mg capsule,3 bead,ext release 24hr (Mydayis) 50 mg PO DAILY Adult ADD 01/23/19 [History Last Taken Unknown] blood sugar diagnostic 02/15/20 [History Last Taken Unknown] buprenorphine 10 mcg/hour weekly transdermal patch 1 patch transdermal Q7D 03/26/20 [History Last Taken Unknown] trazodone 100 mg tablet 300 mg PO QHS sleep 04/24/20 [History Last Taken Unknown] pen needle, diabetic 31 gauge x 5/16 (Unifine Pentips) #200 ea 06/16/21 [Rx Last Taken Unknown] alcohol swabs 4 pad topical .qid Check with primary doctor #200 ea 09/08/21 [Rx Last Taken Unknown] empagliflozin 25 mg tablet 25 mg PO QAM diabetes #90 tabs 10/20/21 [Rx Last Taken Unknown] fluticasone propionate 50 mcg/actuation nasal spray,suspension 2 spray intranasal DAILY PRN Congestion #16 grams 10/30/21 [Rx Last Taken Unknown] albuterol sulfate 90 mcg/actuation aerosol inhaler (ProAir HFA) 1 - 2 puff inhalation Q6H PRN shortness of breath or wheezing #8.5 grams 05/18/22 [Rx Last Taken Unknown] albuterol sulfate 90 mcg/actuation aerosol inhaler (Ventolin HFA) 2 puff inhalation Q6H PRN shortness of breath or wheezing #8.5 grams 05/18/22 [Rx Last Taken Unknown] doxazosin 2 mg tablet 2 mg PO QHS blood pressure #90 tabs 05/18/22 [Rx Last Taken Unknown] meloxicam 15 mg tablet 15 mg PO DAILY PRN pain #30 tabs 05/18/22 [Rx Last Taken Unknown] blood sugar diagnostic (True Metrix Glucose Test Strip) #100 ea 06/17/22 [Rx Last Taken Unknown] blood-glucose meter (True Metrix Glucose Meter) #1 ea 06/17/22 [Rx Last Taken Unknown] lancets 28 gauge (FreeStyle Lancets) #200 ea 06/17/22 [Rx Last Taken Unknown] flash glucose scanning reader (FreeStyle Frances 2 [place]) #1 ea 07/12/22 [Rx Last Taken Unknown] insulin lispro 100 unit/mL subcutaneous pen (Humalog KwikPen (U-100) Insulin) See Rx Instructions .Route .COMPLEX #15 mL 08/02/22 [Rx Last Taken Unknown] amlodipine 10 mg tablet See Rx Instructions .Route .COMPLEX #30 tabs 01/14/23 [Rx Last Taken Unknown] atorvastatin 40 mg tablet See Rx Instructions .Route .COMPLEX #30 tabs 01/14/23 [Rx Last Taken Unknown] fenofibrate nanocrystallized 145 mg tablet See Rx Instructions .Route .COMPLEX #30 tabs 01/14/23 [Rx Last Taken Unknown] hydrochlorothiazide 25 mg tablet See Rx Instructions .Route .COMPLEX #30 tabs 01/14/23 [Rx Last Taken Unknown] flash glucose sensor (FreeStyle Frances 2 Sensor kit) #1 ea 02/01/23 [Rx Last Taken Unknown] insulin degludec 100 unit/mL (3 mL) subcutaneous pen 65 unit (0.65 mL) subcut QHS diabetes 3 months #58.5 mL 02/01/23 [Rx Last Taken Unknown] pantoprazole 40 mg tablet,delayed release See Rx Instructions .Route .COMPLEX #60 tabs 02/10/23 [Rx Last Taken Unknown] metformin 500 mg tablet,extended release 24hr (osmotic) 1,000 mg (2 x 500 mg) PO BID diabetes 3 months #360 tabs 02/16/23 [Rx Last Taken Unknown] Allergy/AdvReac Type Severity Reaction Status Date / Time No Known Allergies Allergy Verified 02/23/23 19:37 Family History Father Diabetes Mother Multiple sclerosis Other CVA (cerebral vascular accident) Surgical History cyst removed from pancreas History of amputation History of bilateral knee replacement Post-splenectomy S/P total knee arthroplasty Social History Smoking Status: Former smoker Tobacco: How many years used: 30 Smokeless tobacco user: snuff how long ago did patient quit smokin, 1ppd second hand exposure: Yes alcohol intake: former year quit: 2018 substance use type: does not use what type of physical activity do you participate in: none ROS Review of Systems ROS Unobtainable: due to endotracheal tube and due to mental status Physical Exam Const Constitutional Narrative: Currently intubated, sedated and mechanically ventilated. HEENT normocephalic and head/scalp atraumatic Mouth: endotracheal tube in place and OG tube in place Eyes PERRL and EOMs intact bilaterally Neck supple General: trachea midline Chest inspection of chest normal Resp normal respiratory effort Auscultation: rales and diminished lung sounds Cardio regular rate and regular rhythm GI normal to inspection, nondistended, normoactive bowel sounds Extremity General Extremity: amputation; Negative for clubbing or edema Skin no rashes or lesions noted Neuro moves all extremities and no focal motor deficits Psych Activity / Motor Behavior: restless Lab / Micro Data 02/27/23 04:27 02/27/23 04:27 Labs: Laboratory Results - last 24 hr 02/26/23 06:57: Sodium 142, Potassium 3.4 L, Chloride 111 H, Carbon Dioxide 23.0, Anion Gap 8, BUN 12, Creatinine 0.67 L, Estim Creat Clear Calc 138.92, Est GFR (MDRD) Af Amer 161, Est GFR (MDRD) Non-Af 133, BUN/Creatinine Ratio 18.0, Glucose 125 H, Calcium 7.9 L, Phosphorus 2.0 L, Magnesium 1.5 L, Total Bilirubin 0.70, AST 58 H, ALT 54, Alkaline Phosphatase 70, Total Protein 6.0 L, Albumin 2.5 L, Globulin 3.5, Albumin/Globulin Ratio 0.7 L, TSH 4.04 H 02/26/23 07:54: POC Glucose 120 H 02/26/23 08:00: B-Natriuretic Peptide 662.6 H 02/26/23 12:11: POC Glucose 96 02/26/23 17:44: POC Glucose 129 H 02/26/23 23:13: POC Glucose 141 H 02/27/23 04:27: WBC 8.6, RBC 4.59 L, Hgb 13.8, Hct 41.4, MCV 90.2, MCH 30.1, MCHC 33.3, RDW Std Deviation 45.1 H, RDW Coeff of Eliezer 13.8, Plt Count 353, MPV 10.4, Immature Gran % (Auto) 0.500, Neut % (Auto) 62.5, Lymph % (Auto) 26.6, [place] % (Auto) 7.9, Eos % (Auto) 1.6, Baso % (Auto) 0.9, Absolute Neuts (auto) 5.4, Absolute Lymphs (auto) 2.28, Nucleated RBC % 0, Sodium 144, Potassium 2.9 L, Chloride 107, Carbon Dioxide 25.0, Anion Gap 12, BUN 15, Creatinine 0.76, Estim Creat Clear Calc 122.47, Est GFR (MDRD) Af Amer 139, Est GFR (MDRD) Non-Af 115, BUN/Creatinine Ratio 19.8, Glucose 148 H, Calcium 7.8 L, Total Bilirubin 0.50, AST 52 H, ALT 59, Alkaline Phosphatase 74, Ammonia 30.0, Total Creatine Kinase 298, Total Protein 6.6, Albumin 2.6 L, Globulin 4.0, Albumin/Globulin Ratio 0.6 L, Triglycerides 201 H 02/27/23 06:13: POC Glucose 135 H Micro: Microbiology 02/26/23 09:15 Nasal Secretion SARS-CoV-2 Antigen (Rapid) - Final ABG Data ABG results: ABG 02/26/23 02/26/23 02/26/23 08:28 11:55 14:13 Specimen Type ART ART ART Sample Site L Radial R Radial L Radial pH 7.43 7.50 H 7.46 H Bicarbonate Actual 24.0 22.1 24.4 Total CO2 25 23 25 Base Excess 0 -1 1 O2 Saturation 91 L 95 99 O2 % 40.0 65.0 100.0 ABG pCO2 36.1 28.2 L 34.6 L ABG pO2 58 L 69 L 109 H Willi Test Positive Positive Positive Respiration Rate 12 O2 Delivery Device Venti Mask HFNC ET Tube Vent Mode Not entered Not entered AC Tidal Volume 500.0 POC PEEP 5 Clinical Comments AIRVO 50lpm Imagaing Radiology Impression Chest X-Ray 02/26/23 07:13 IMPRESSION: Mild pulmonary edema and small pleural effusions. Superimposed bibasilar atelectasis versus infiltrate. Electronically Signed: Jon Thrasher MD at 7:57 EST , Chest X-Ray 02/26/23 12:55 IMPRESSION: 1. Satisfactory placement of ET tube. 2. OG tube courses down towards the abdomen but exact location is uncertain since the abdomen is not included. 3. Suspicious interstitial pneumonitis in both lungs without obvious significant change. Electronically Signed: David Chowdhury MD at 13:39 EST , Charges/Coding Procedures Hospitalists Procedures: 30097 Critial Care 1st Hr
[2023-02-27] MEDS: Propofol 10MG/Ml 1,000 MG/100 ML Bottle 24.6 MG CONT INF (08:08)
--- NOTE | 2023-02-27 08:17 | PN.HOSP_ITS ---
Reason for Visit Reason for Visit: Streaking/alcohol intoxication Subjective Subjective No issues overnight and patient has been much more calm however somewhat agitated this morning. Breathing is stable and ventilator has been weaned to 50% Objective Data Objective Data Vital Signs: Vital Signs Temp Pulse Resp BP Pulse Ox O2 Del Method O2 Flow Rate 100.0 F H 71 15 119/86 H 96 Mechanical Ventilator 50 02/27/23 07:00 02/27/23 07:07 02/27/23 07:07 02/27/23 07:00 02/27/23 07:07 02/27/23 07:00 02/26/23 12:00 FiO2 50 02/27/23 07:07 Oxygen Flow Rate (L/min) 50 Oxygen Delivery Method Mechanical Ventilator Weight: 102.3 kg Body Mass Index (BMI) 31.4 Intake & Output: Intake and Output for Last 24 Hours 02/25/23 02/26/23 02/27/23 23:59 23:59 23:59 Intake Total 3182.00 / 3189.79 3305.66 / 3366.96 474.40 / 474.40 Output Total 3300 / 3300 4861 / 4861 332 / 332 Balance -118.00 / -110.21 -1555.34 / -1494.04 142.40 / 142.40 Lab / Micro Data 02/27/23 04:27 02/27/23 04:27 Labs: Laboratory Results - last 24 hr 02/26/23 06:57: Sodium 142, Potassium 3.4 L, Chloride 111 H, Carbon Dioxide 23.0, Anion Gap 8, BUN 12, Creatinine 0.67 L, Estim Creat Clear Calc 138.92, Est GFR (MDRD) Af Amer 161, Est GFR (MDRD) Non-Af 133, BUN/Creatinine Ratio 18.0, Glucose 125 H, Calcium 7.9 L, Phosphorus 2.0 L, Magnesium 1.5 L, Total Bilirubin 0.70, AST 58 H, ALT 54, Alkaline Phosphatase 70, Total Protein 6.0 L, Albumin 2.5 L, Globulin 3.5, Albumin/Globulin Ratio 0.7 L, TSH 4.04 H 02/26/23 08:00: B-Natriuretic Peptide 662.6 H 02/26/23 12:11: POC Glucose 96 02/26/23 17:44: POC Glucose 129 H 02/26/23 23:13: POC Glucose 141 H 02/27/23 04:27: WBC 8.6, RBC 4.59 L, Hgb 13.8, Hct 41.4, MCV 90.2, MCH 30.1, MCHC 33.3, RDW Std Deviation 45.1 H, RDW Coeff of Eliezer 13.8, Plt Count 353, MPV 10.4, Immature Gran % (Auto) 0.500, Neut % (Auto) 62.5, Lymph % (Auto) 26.6, [place] % (Auto) 7.9, Eos % (Auto) 1.6, Baso % (Auto) 0.9, Absolute Neuts (auto) 5.4, Absolute Lymphs (auto) 2.28, Nucleated RBC % 0, Sodium 144, Potassium 2.9 L , Chloride 107, Carbon Dioxide 25.0, Anion Gap 12, BUN 15, Creatinine 0.76, Estim Creat Clear Calc 122.47, Est GFR (MDRD) Af Amer 139, Est GFR (MDRD) Non-Af 115, BUN/Creatinine Ratio 19.8, Glucose 148 H, Calcium 7.8 L, Total Bilirubin 0.50, AST 52 H, ALT 59, Alkaline Phosphatase 74, Ammonia 30.0, Total Creatine Kinase 298, Total Protein 6.6, Albumin 2.6 L, Globulin 4.0, Albumin/Globulin Ratio 0.6 L, Triglycerides 201 H 02/27/23 06:13: POC Glucose 135 H Micro: Microbiology 02/26/23 09:15 Nasal Secretion SARS-CoV-2 Antigen (Rapid) - Final ABG Data ABG results: ABG 02/26/23 02/26/23 02/26/23 08:28 11:55 14:13 Specimen Type ART ART ART Sample Site L Radial R Radial L Radial pH 7.43 7.50 H 7.46 H Bicarbonate Actual 24.0 22.1 24.4 Total CO2 25 23 25 Base Excess 0 -1 1 O2 Saturation 91 L 95 99 O2 % 40.0 65.0 100.0 ABG pCO2 36.1 28.2 L 34.6 L ABG pO2 58 L 69 L 109 H Willi Test Positive Positive Positive Respiration Rate 12 O2 Delivery Device Venti Mask HFNC ET Tube Vent Mode Not entered Not entered AC Tidal Volume 500.0 POC PEEP 5 Clinical Comments AIRVO 50lpm Radiography Diagnostic Testing: Radiology Impression Chest X-Ray 02/26/23 12:55 IMPRESSION: 1. Satisfactory placement of ET tube. 2. OG tube courses down towards the abdomen but exact location is uncertain since the abdomen is not included. 3. Suspicious interstitial pneumonitis in both lungs without obvious significant change. Electronically Signed: David Chowdhury MD at 13:39 EST Reading Location ID and State: [facility] / [place] , Service support , Physical Exam Const no apparent distress and well nourished Constitutional Narrative: Obese, middle-aged, white male, intubated and sedated however mildly agitated at this time, appears comfortable and nontoxic HEENT normocephalic, head/scalp atraumatic and moist oral mucous membranes HEENT Narrative: ET tube in place, OG in place Eyes PERRL and conjunctivae normal Eyes Narrative: No scleral icterus Neck no lymphadenopathy and supple Neck Narrative: Neck is short and thick, trachea midline, no noted thyroid enlargement Resp normal respiratory effort, no retractions, no use of accessory muscles and No clear to auscultation bilaterally Resp Narrative: Still with mild crackles at the bases bilaterally but improved Auscultation: crackles; Negative for rales, rhonchi or wheezes Cardio regular rate, regular rhythm, S1 normal heart sound, S2 normal heart sound, no murmurs, no rub, no gallops and no clicks GI normal to inspection, nondistended, normoactive bowel sounds, soft to palpation and non-tender GI Narrative: Old midline incision noted, abdomen is protuberant Extremity no clubbing, cyanosis or edema Extremity Narrative: Right transmetatarsal amputation noted from previous well-healed, pedal pulses are 2+ bilaterally Skin Skin Narrative: Scattered ecchymotic lesions noted on legs and left buttocks Neuro moves all extremities Neuro Narrative: Patient agitated and moving all 4 extremities, not appropriately interactive and does not follow commands Psych Psych Narrative: Unable to assess due to current mental status Mood & Affect: anxious Assessment & Plan Assessment/Plan (1) Cardiomyopathy: (2) DTs (delirium tremens): (3) Alcohol withdrawal: QUALIFIERS: Complication of substance-induced condition: unc omplicated Qualified Code(s): F10.930 - Alcohol use, unspecified with with drawal, uncomplicated (4) Acute HFrEF (heart failure with reduced ejection fraction): (5) Aspiration into airway: (6) Metabolic encephalopathy: (7) Acute hypoxic respiratory failure: (8) Hypokalemia: (9) Hypophosphatemia: (10) Hypomagnesemia: PLAN: Plan Acute hypoxic respiratory failure secondary to volume overload +/- aspiration -Patient required intubation -Awakens appropriately with sedation vacation however is very agitated and does not follow commands -BNP was markedly elevated and chest x-ray is consistent with volume overload -Continue Lasix IV push twice daily -Continue Unasyn 3 g every 6 hours and await sputum culture and sensitivities -Critical care/pulmonary medicine following-discussed with Dr. Sadler-appreciate input DTs secondary to severe alcohol withdrawal with metabolic encephalopathy -Continue Precedex -Continue IV phenobarb taper -May require intubation for severe DTs depending on clinical status as noted above -Continue IV thiamine and folate -180 consultation is pending Atrial fibrillation -Suspect related to alcohol toxicity -Remains in sinus rhythm -Continue metoprolol IV with intent to transition back to carvedilol after extubated -Patient is on therapeutic Lovenox--> chads 2 score is 2 -Monitor for bleeding Hypokalemia -80 mill equivalents p.o. replacement down OG -Repeat in a.m. Hypomagnesemia -4 gram replacement IV -Repeat in a.m. Hypophosphatemia -IV sodium Phos replacement -Repeat a.m. Cardiomyopathy -Type unclear however suspect nonischemic -EF is 40% on echocardiogram with global LV dysfunction -Suspect related to alcohol use and or tachycardia mediated with A-fib -Recommend appropriate goal-directed therapy with repeat echocardiogram in 6 to 8 weeks -Continue IV metoprolol -Hold lisinopril for now -Will need cardiology follow-up after discharge -Would tentatively plan for 6 to 8 weeks of goal-directed therapy with repeat e chocardiogram [id number] -Blood sugars were markedly elevated on presentation -Home compliance is questionable -Continue subcu insulin 30 units twice daily -Fasting blood sugar this morning was 148 -If patient is not able to eat due to mental status on Precedex and with DTs may need to decrease insulin dosing but will monitor -Hold Jardiance -Hold metformin while hospitalized -Continue to monitor sugars as ordered -Cardiac/carb controlled diet HTN -Blood pressures are on the lower side right now due to the use of Precedex -Continue scheduled IV metoprolol with hold parameters -Hold lisinopril -Hold home HCTZ and amlodipine Hyperlipidemia -Continue home atorvastatin GERD -Continue IV PPI History of CASE -Suspect patient noncompliant -Patient currently intubated Osteoarthritis -Hold home meloxicam -As needed Tylenol History of tobacco abuse -Quit in 2018 -Recommend ongoing cessation Obesity -BMI 32.2 -Recommend weight loss -Complicates treatment, prognosis, outcomes DVT prophylaxis -Patient is on therapeutic Lovenox due to his development of A-fib -We will continue at this time with plans to transition to enoxaparin CODE STATUS Full code Charges/Coding Visit Charges Inpatient E&M: 28193 Subs Hosp L3
[2023-02-27] MEDS: TITRATION PARAMETER CHANGE 1 EACH IV ×3 (08:19→10:42)
[2023-02-27] MEDS: Fenofibrate 145 MG Tablet PO (08:20)
[2023-02-27] MEDS: CHLORHEXIDINE GLUC 2% CLOTH 1 EACH TOWELETTE TOPICAL ×2 (08:21→23:59)
[2023-02-27] MEDS: Chlorhexidine 15 ML PO ×2 (08:21→20:20)
[2023-02-27] MEDS: Furosemide 40 MG/4 ML Vial IV (08:21)
[2023-02-27] MEDS: Potassium Chloride Oral Soln 20 MEQ/15 ML UDC 80 MEQ GT (08:33)
[2023-02-27] MEDS: Magnesium Sulfate 4gm/100mL 4 GM/100 ML IV.SOLN. IV (08:45)
[2023-02-27] MEDS: Folic Acid 1 MG in 0.9% Normal Saline (50mL Bag) 50 ML 200 MG IV (10:36)
[2023-02-27] MEDS: Sodium Phosphate/Na Biphos 30 MMOL in 0.9% Normal Saline (250mL Bag) 250 ML 62.5 MMOL IV (10:42)
[2023-02-27] MEDS: Vital AF 1.2 Cal Liquid 1,000 ML 30 ML GT (10:42)
[2023-02-27] MEDS: Pantoprazole Sodium 40 MG in 0.9% Normal Saline (100mL MB+) 100 ML 330 MG IV (11:04)
[2023-02-27] MEDS: Propofol 10MG/Ml 1,000 MG/100 ML Bottle 21.5 MG CONT INF (11:05)
[2023-02-27] MEDS: fentaNYL drip 100 ML 15 MCG CONT INF (11:07)
[2023-02-27] MEDS: Insulin Glargine-YFGN 100 UNIT/ML Pen 30 UNIT SC ×2 (12:05→20:31)
[2023-02-27] MEDS: Insulin Lispro 100 UNIT/ML INSULN.PEN SC ×3 (12:06→23:59)
[2023-02-27 12:41] LABS: Bedside Glucose 189 mg/dL (74-106)
[2023-02-27] MEDS: dexMEDEtomidine 1,000 MCG in 0.9% Normal Saline (250mL Bag) 240 ML 12.8 MCG CONT INF (15:03)
[2023-02-27] MEDS: Propofol 10MG/Ml 1,000 MG/100 ML Bottle 15.3 MG CONT INF (16:35)
[2023-02-27 18:48] LABS: Bedside Glucose 158 mg/dL (74-106)
[2023-02-27] MEDS: Propofol 10MG/Ml 1,000 MG/100 ML Bottle 18.4 MG CONT INF (20:50)
[2023-02-27] MEDS: fentaNYL drip 100 ML 5 MCG CONT INF (20:51)
[2023-02-27 21:23] LABS: Bedside Glucose 171 mg/dL (74-106)
[2023-02-28] VITALS (37 sets, daily range): BP systolic 87–112; BP diastolic 61–85; PULSE 65–76; RESP 11–20; TEMP 37.4–38.3; O2SAT 91–98; BMI 31.4
[2023-02-28] MEDS: 0.9% Saline Lock 10 ML Syringe IV ×2 (00:01→06:21)
[2023-02-28 00:39] LABS: Bedside Glucose 179 mg/dL (74-106)
[2023-02-28] MEDS: Propofol 10MG/Ml 1,000 MG/100 ML Bottle 18.4 MG CONT INF (01:05)
[2023-02-28] MEDS: Ipratropium/Albuterol Sulfate 3 ML AMPUL.NEB INHALATION ×4 (01:25→19:09)
[2023-02-28] MEDS: TITRATION PARAMETER CHANGE 1 EACH IV (03:08)
[2023-02-28 03:45] LABS: Absolute Lymphocyte Count 1.93 X10^3/uL (0.83-4.51); Absolute Neutrophil Count 5.7 X10^3/uL (2.0-7.7); Basophil# 0.07 X10^3/uL; Basophil% 0.8 % (0-1); Eosinophil# 0.23 X10^3/uL; Eosinophils% 2.6 % (0-5); Hematocrit 41.5 % (40-54); Hemoglobin 13.9 g/dL (13.0-16.5); Lymphocyte # 1.93 X10^3/ul (0.83-4.51); Lymphocyte % 21.6 % (19-41); Mean Corp Hgb Conc 33.5 g/dL (32-36); Mean Corpuscular Hgb 30.9 pg (27.0-32.0); Mean Corpuscular Volume 92.2 fL (80-94); Mean Platelet Vol. 10.3 fl (6.2-12.0); Monocyte# 0.96 X10^3/uL; Monocyte% 10.8 % (0-10); NRBC Flagged by Analyzer 0 % (0-5); Neutrophil # 5.72 X10^3/uL (2.7-7.7); Platelet Count 352 K/mm3 (150-450); RBC Distribution Width CV 14.6 % (11.6-14.6); RBC Distribution Width SD 48.9 fl (35.1-43.9); White Blood Count 8.9 K/mm3 (4.4-11.0)
[2023-02-28 03:50] LABS: Anion Gap 6 (5-15); BUN 19 mg/dL (7-18); BUN/Creat Ratio 22.8 RATIO (10-20); Calcium,Total 8.1 mg/dL (8.5-10.1); Chloride 109 mmol/L (98-107); Creatinine, Serum 0.83 mg/dL (0.70-1.30); EST Glomerular Filtration Rate 103 mL/min (>60); Est Glom Filt Rate - Afr Amer 125 mL/min (>60); Estimated Creatinine Clearance 112.14 ml/min; Glucose 196 mg/dL (74-106); Phosphorus 3.8 mg/dL (2.5-4.9); Potassium 3.3 mmol/L (3.5-5.1); Sodium Level 143 mmol/L (136-145)
[2023-02-28] MEDS: Potassium Chloride 10mEq/100mL 10 MEQ/100 ML IV.SOLN. 100 MEQ IV BOLUS ×4 (06:19→09:52)
[2023-02-28] MEDS: Insulin Lispro 100 UNIT/ML INSULN.PEN SC ×4 (06:20→23:18)
[2023-02-28] MEDS: Ampicillin/Sulbactam 3 GM in 0.9% Normal Saline (100mL MB+) 100 ML IV ×3 (06:21→12:06)
[2023-02-28] MEDS: Propofol 10MG/Ml 1,000 MG/100 ML Bottle 21.7 MG CONT INF ×2 (06:21→23:08)
[2023-02-28] MEDS: Thiamine Hydrochloride 200 MG in 0.9% Normal Saline (50mL Bag) 50 ML IV ×3 (06:21→21:08)
[2023-02-28] MEDS: Phenobarbital Sodium 65 MG/ML Vial 32.4 MG IV ×2 (06:21)
[2023-02-28] MEDS: Metoprolol Tartrate 5 MG/5 ML Vial IV ×2 (06:22→12:03)
[2023-02-28] MEDS: Enoxaparin 100 MG/ML Syringe SC ×2 (06:22→18:14)
[2023-02-28 06:40] LABS: Bedside Glucose 177 mg/dL (74-106)
[2023-02-28] MEDS: Chlorhexidine 15 ML PO ×2 (08:11→21:08)
[2023-02-28] MEDS: Fenofibrate 145 MG Tablet PO (08:11)
--- NOTE | 2023-02-28 09:09 | PCM.PN.HOSP ---
Reason for Visit Reason for Visit: Diagnoses Type 2 diabetes mellitus with hyperglycemia (02/24/23) Other disorders of phosphorus metabolism (02/24/23) Hypomagnesemia (02/24/23) Hypokalemia (02/24/23) Alcohol use, unspecified with withdrawal, uncomplicated (02/24/23) Alcohol use, unspecified with withdrawal delirium (02/24/23) Metabolic encephalopathy (02/24/23) Cardiomyopathy, unspecified (02/24/23) Chronic atrial fibrillation, unspecified (02/24/23) Acute systolic (congestive) heart failure (02/24/23) Acute respiratory failure with hypoxia (02/24/23) Tachycardia, unspecified (02/24/23) Suicidal ideations (02/24/23) Laceration without foreign body of right upper arm, initial encounter (02/24/23) Unspecified foreign body in respiratory tract, part unspecified causing other injury, initial encounter (02/24/23) long-term (current) use of insulin (02/24/23) Subjective Subjective Patient either becomes very agitated if we wean sedation or is fairly somnolent with ongoing sedation. No specific issues overnight. Objective Data Objective Data Vital Signs: Vital Signs Temp Pulse Resp BP Pulse Ox O2 Del Method O2 Flow Rate 100.1 F H 67 16 108/84 H 96 Mechanical Ventilator 50 02/28/23 07:00 02/28/23 07:00 02/28/23 07:00 02/28/23 07:00 02/28/23 07:00 02/28/23 08:00 02/26/23 12:00 FiO2 35 02/28/23 08:00 Oxygen Flow Rate (L/min) 50 Oxygen Delivery Method Mechanical Ventilator Weight: 102.3 kg Body Mass Index (BMI) 31.4 Intake & Output: Intake and Output for Last 24 Hours 02/26/23 02/27/23 02/28/23 23:59 23:59 23:59 Intake Total 3305.66 / 3366.96 2422.43 / 2458.63 836.34 / 836.34 Output Total 4861 / 4861 1457 / 1489 287 / 287 Balance -1555.34 / -1494.04 965.43 / 969.63 549.34 / 549.34 Lab / Micro Data 02/28/23 03:21 02/28/23 03:21 Labs: Laboratory Results - last 24 hr 02/27/23 12:02: POC Glucose 189 H 02/27/23 18:19: POC Glucose 158 H 02/27/23 20:30: POC Glucose 171 H 02/27/23 23:59: POC Glucose 179 H 02/28/23 03:21: WBC 8.9, RBC 4.50 L, Hgb 13.9, Hct 41.5, MCV 92.2, MCH 30.9, MCHC 33.5, RDW Std Deviation 48.9 H, RDW Coeff of Eliezer 14.6, Plt Count 352, MPV 10.3, Immature Gran % (Auto) 0.200, Neut % (Auto) 64.0, Lymph % (Auto) 21.6, [place] % (Auto) 10.8 H, Eos % (Auto) 2.6, Baso % (Auto) 0.8, Absolute Neuts (auto) 5.7, Absolute Lymphs (auto) 1.93, Nucleated RBC % 0, Sodium 143, Potassium 3.3 L, Chloride 109 H, Carbon Dioxide 28.0, Anion Gap 6, BUN 19 H, Creatinine 0.83, Estim Creat Clear Calc 112.14, Est GFR (MDRD) Af Amer 125, Est GFR (MDRD) Non-Af 103, BUN/Creatinine Ratio 22.8 H, Glucose 196 H, Calcium 8.1 L, Phosphorus 3.8, Magnesium 2.0 02/28/23 06:19: POC Glucose 177 H Micro: Microbiology 02/26/23 12:45 Sputum, Induced/Lukens Gram Stain - Final 02/26/23 12:45 Sputum, Induced/Lukens Respiratory Culture - Preliminary Staphylococcus aureus 02/26/23 09:15 Nasal Secretion SARS-CoV-2 Antigen (Rapid) - Final Physical Exam Const no apparent distress and well nourished Constitutional Narrative: Obese, middle-aged, white male, intubated and sedated, currently calm but has periods of intermittent agitation, appears comfortable and nontoxic HEENT normocephalic and head/scalp atraumatic HEENT Narrative: ET tube/OG in place Eyes PERRL and conjunctivae normal Eyes Narrative: No scleral icterus Resp normal respiratory effort, no retractions, no use of accessory muscles and No clear to auscultation bilaterally Auscultation: Negative for rales, rhonchi or wheezes Cardio regular rate, regular rhythm, S1 normal heart sound, S2 normal heart sound, no murmurs, no rub, no gallops and no clicks GI normal to inspection, nondistended, normoactive bowel sounds, soft to palpation and non-tender GI Narrative: Old midline incision noted, abdomen is protuberant Extremity no clubbing, cyanosis or edema Extremity Narrative: Right transmetatarsal amputation noted from previous well-healed, pedal pulses are 2+ bilaterally Neuro moves all extremities Neuro Narrative: Patient with intermittent agitation and moves all 4 extremities spontaneously, not appropriately interactive and does not follow commands Psych Psych Narrative: Unable to assess due to current mental status Mood & Affect: anxious Assessment & Plan Assessment/Plan (1) Cardiomyopathy: (2) DTs (delirium tremens): (3) Alcohol withdrawal: QUALIFIERS: Complication of substance-induced condition: uncomplicated Qualified Code(s): F10.930 - Alcohol use, unspecified with withdrawal, uncomplicated (4) Acute HFrEF (heart failure with reduced ejection fraction): (5) Aspiration into airway: (6) Metabolic encephalopathy: (7) Acute hypoxic respiratory failure: (8) Hypokalemia: (9) Hypophosphatemia: (10) Hypomagnesemia: (11) Staphylococcus aureus pneumonia: PLAN: Plan Acute hypoxic respiratory failure secondary to acute decompensated heart failure with reduced ejection fraction and staph pneumonia -Patient required intubation on 02/26/2023 -FiO2 has been reduced to 35% -This can disc -Awakens appropriately with sedation vacation however is very agitated and does not follow commands -Patient is either very sedated or very agitated -Respiratory status has stabilized however mental status remains a problem -Volume overload appears to be compensated -Sputum culture showing Staph aureus so we will add vancomycin and continue Unasyn for now -Await final eyes cultures and sensitivities and will then narrow -Critical care/pulmonary medicine following-appreciate input Staph aureus pneumonia -Preliminary culture shows Staph aureus with sensitivities pending -Vancomycin added to Unasyn and will await sensitivities and narrow once able -Will need a total of 7 days of antibiotics DTs secondary to severe alcohol withdrawal with metabolic encephalopathy -Continue Precedex but wean as able -Continue IV phenobarb taper -Continue IV thiamine and folate -180 consultation is pending Atrial fibrillation -Suspect related to alcohol toxicity -Remains in sinus rhythm -Continue metoprolol IV with intent to transition back to carvedilol after extubated -Patient is on therapeutic Lovenox--> chads 2 score is 2 -Monitor for bleeding Hypokalemia - IV replacement -Repeat in a.m. Hypomagnesemia - resolved Hypophosphatemia -Resolved Cardiomyopathy -Type unclear however suspect nonischemic -EF is 40% on echocardiogram with global LV dysfunction -Suspect related to alcohol use and or tachycardia mediated with A-fib -Recommend appropriate goal-directed therapy with repeat echocardiogram in 6 to 8 weeks -Continue IV metoprolol -Hold lisinopril for now -Will need cardiology follow-up after discharge -Would tentatively plan for 6 to 8 weeks of goal-directed therapy with repeat echocardiogram [id number] -Blood sugars were markedly elevated on presentation -Home compliance is questionable -Increase Lantus to 36 units twice daily -If patient is not able to eat due to mental status on Precedex and with DTs may need to decrease insulin dosing but will monitor -Hold Jardiance -Hold metformin while hospitalized -Continue to monitor sugars as ordered -Cardiac/carb controlled diet HTN -Blood pressures are on the lower side right now due to the use of Precedex -Continue scheduled IV metoprolol with hold parameters -Hold lisinopril -Hold home HCTZ and amlodipine Hyperlipidemia -Continue home atorvastatin GERD -Continue IV PPI History of CASE -Suspect patient noncompliant -Patient currently intubated Osteoarthritis -Hold home meloxicam -As needed Tylenol History of tobacco abuse -Quit in 2018 -Recommend ongoing cessation Obesity -BMI 32.2 -Recommend weight loss -Complicates treatment, prognosis, outcomes DVT/GI prophylaxis -Patient is on therapeutic Lovenox due to his development of A-fib -We will continue at this time with plans to transition to Eliquis -Protonix 40 mg daily IV push CODE STATUS Full code Charges/Coding Visit Charges Inpatient E&M: 03084 Subs Hosp L2
[2023-02-28] MEDS: Folic Acid 1 MG in 0.9% Normal Saline (50mL Bag) 50 ML 200 MG IV (09:52)
[2023-02-28] MEDS: Propofol 10MG/Ml 1,000 MG/100 ML Bottle 18.6 MG CONT INF (10:03)
[2023-02-28] MEDS: Polyethylene Glycol 3350 17 GM PACKET PO (10:57)
[2023-02-28] MEDS: Pantoprazole Sodium 40 MG in 0.9% Normal Saline (100mL MB+) 100 ML 330 MG IV (10:58)
[2023-02-28] MEDS: Vancomycin HCl 1,500 MG in 0.9% Normal Saline (500mL Bag) 500 ML 250 MG IV (10:58)
[2023-02-28] MEDS: diazePAM 5 MG Tablet PO ×2 (10:58→21:08)
[2023-02-28] MEDS: Vital AF 1.2 Cal Liquid 1,000 ML 50 ML GT (10:58)
[2023-02-28] MEDS: Senna Tablet 1 TABLET GT (11:02)
[2023-02-28] MEDS: dexMEDEtomidine 1,000 MCG in 0.9% Normal Saline (250mL Bag) 240 ML 18.1 MCG CONT INF ×2 (11:24→23:08)
[2023-02-28] MEDS: Insulin Glargine-YFGN 100 UNIT/ML Pen 36 UNIT SC ×2 (11:59→21:16)
[2023-02-28 13:25] LABS: Bedside Glucose 192 mg/dL (74-106)
--- NOTE | 2023-02-28 13:58 | PN.CC_ITS ---
Assessment & Plan Assessment/Plan (1) Acute hypoxic respiratory failure: PLAN: Plan RECOMMENDATIONS: 1. Continue assist-control mode of mechanical ventilation. reduced peep to 5cm H2O 2. cont diuresis 3. He continues to be agitated despite phenobarb and drips. Will d/c phenobarb and add valium. If agitation remains difficult to control will switch to versed ggt 4 .Sputum cx +ve for MRSA. DC unasyn and cont vanc 5. Continue appropriate ICU prophylaxis. He is on lovenox bid for a fib IMPRESSIONS: 1. Acute hypoxemic respiratory failure The patient was initially intubated in the setting of worsening hypoxemia and profound agitation secondary to acute alcohol withdrawal. Supplemental fluids have been discontinued and the patient was initiated on appropriate diuretic therapy. Plan to continue supportive measures including assist-control mode of mechanical ventilation. FiO2 and PEEP will be weaned to maintain oxygen saturations at or above 90%. Continue empiric antimicrobials, pending finalized culture results, over concerns for potential aspiration. 2. Acute alcohol withdrawal The patient had severe DTs, despite phenobarbital taper. Plan to continue current sedation regimen along with thiamine and folic acid supplementation. Nutritional support via tube feeding can be started from my perspective. The patient will need to be monitored closely for electrolyte abnormalities. 3. Cardiomyopathy/heart failure with reduced ejection fraction Continue current supportive measures along with diuretics as tolerated. 4. History of diabetes mellitus/obstructive sleep apnea/GERD/hypertension/tobacco dependency in remission Complicates care, management, recovery and prognosis. Continue home medications as indicated. TIME: 33 minutes of critical care time, independent of procedures, was spent addr essing the patient's acute hypoxemic respiratory failure, acute alcohol withdrawal, review of all data and collaboration with the care team. Subjective Subjective remains on the vent, becomes agitated when sedation is weaned Objective Data Objective Data Vital Signs: Vital Signs Temp Pulse Resp BP Pulse Ox O2 Del Method O2 Flow Rate 37.9 C H 70 15 105/84 H 92 Mechanical Ventilator 50 02/28/23 12:00 02/28/23 13:08 02/28/23 13:08 02/28/23 12:00 02/28/23 13:08 02/28/23 12:00 02/26/23 12:00 FiO2 35 02/28/23 13:08 Oxygen Flow Rate (L/min) 50 Oxygen Delivery Method Mechanical Ventilator Weight: 102.3 kg Body Mass Index (BMI) 31.4 Intake & Output: Intake and Output for Last 24 Hours 02/26/23 02/27/23 02/28/23 23:59 23:59 23:59 Intake Total 3305.66 / 3366.96 2422.43 / 2458.63 2077.06 / 2077.06 Output Total 4861 / 4861 1457 / 1489 287 / 287 Balance -1555.34 / -1494.04 965.43 / 969.63 1790.06 / 1790.06 Lab / Micro Data 02/28/23 03:21 02/28/23 03:21 Labs: Laboratory Results - last 24 hr 02/27/23 18:19: POC Glucose 158 H 02/27/23 20:30: POC Glucose 171 H 02/27/23 23:59: POC Glucose 179 H 02/28/23 03:21: WBC 8.9, RBC 4.50 L, Hgb 13.9, Hct 41.5, MCV 92.2, MCH 30.9, MCHC 33.5, RDW Std Deviation 48.9 H, RDW Coeff of Eliezer 14.6, Plt Count 352, MPV 10.3, Immature Gran % (Auto) 0.200, Neut % (Auto) 64.0, Lymph % (Auto) 21.6, [place] % (Auto) 10.8 H, Eos % (Auto) 2.6, Baso % (Auto) 0.8, Absolute Neuts (auto) 5.7, Absolute Lymphs (auto) 1.93, Nucleated RBC % 0, Sodium 143, Potassium 3.3 L , Chloride 109 H, Carbon Dioxide 28.0, Anion Gap 6, BUN 19 H, Creatinine 0.83, Estim Creat Clear Calc 112.14, Est GFR (MDRD) Af Amer 125, Est GFR (MDRD) Non-Af 103, BUN/Creatinine Ratio 22.8 H, Glucose 196 H, Calcium 8.1 L, Phosphorus 3.8, Magnesium 2.0 02/28/23 06:19: POC Glucose 177 H 02/28/23 11:57: POC Glucose 192 H Micro: Microbiology 02/26/23 12:45 Sputum, Induced/Lukens Gram Stain - Final 02/26/23 12:45 Sputum, Induced/Lukens Respiratory Culture - Final Meth. resistant Staph. aureus 02/26/23 09:15 Nasal Secretion SARS-CoV-2 Antigen (Rapid) - Final Physical Exam Const Constitutional Narrative: Currently intubated, sedated and mechanically ventilated. HEENT normocephalic and head/scalp atraumatic Eyes PERRL and EOMs intact bilaterally Neck supple General: trachea midline Chest inspection of chest normal Resp normal respiratory effort Auscultation: rales and diminished lung sounds Cardio regular rate and regular rhythm GI normal to inspection, nondistended, normoactive bowel sounds Extremity General Extremity: amputation; Negative for clubbing or edema Skin no rashes or lesions noted Neuro moves all extremities and no focal motor deficits Psych Activity / Motor Behavior: restless Charges/Coding Procedures Hospitalists Procedures: 65730 Critial Care 1st Hr
[2023-02-28] MEDS: fentaNYL drip 100 ML 7.5 MCG CONT INF (14:38)
[2023-02-28] MEDS: Propofol 10MG/Ml 1,000 MG/100 ML Bottle 15.5 MG CONT INF (14:42)
[2023-02-28] MEDS: Vancomycin HCl 1,250 MG in 0.9% Normal Saline (250mL Bag) 250 ML 167 MG IV (18:22)
[2023-02-28 18:43] LABS: Bedside Glucose 241 mg/dL (74-106)
[2023-02-28] MEDS: Propofol 10MG/Ml 1,000 MG/100 ML Bottle 12.4 MG CONT INF (19:02)
[2023-02-28 23:43] LABS: Bedside Glucose 245 mg/dL (74-106)
[2023-02-28 23:44] LABS: Bedside Glucose 221 mg/dL (74-106)
[2023-03-01] VITALS (35 sets, daily range): BP systolic 79–106; BP diastolic 60–84; PULSE 65–96; RESP 12–22; TEMP 37.4–38.7; O2SAT 70–98; BMI 32.8
[2023-03-01] MEDS: Ipratropium/Albuterol Sulfate 3 ML AMPUL.NEB INHALATION ×4 (01:14→19:26)
[2023-03-01] MEDS: Vancomycin HCl 1,250 MG in 0.9% Normal Saline (250mL Bag) 250 ML 167 MG IV (02:09)
[2023-03-01] MEDS: Propofol 10MG/Ml 1,000 MG/100 ML Bottle 21.7 MG CONT INF ×2 (02:42→10:30)
[2023-03-01 03:54] LABS: Absolute Lymphocyte Count 2.15 X10^3/uL (0.83-4.51); Absolute Neutrophil Count 6.2 X10^3/uL (2.0-7.7); Basophil# 0.05 X10^3/uL; Basophil% 0.5 % (0-1); Eosinophil# 0.28 X10^3/uL; Eosinophils% 2.8 % (0-5); Hematocrit 38.1 % (40-54); Hemoglobin 12.4 g/dL (13.0-16.5); Lymphocyte # 2.15 X10^3/ul (0.83-4.51); Lymphocyte % 21.5 % (19-41); Mean Corp Hgb Conc 32.5 g/dL (32-36); Mean Corpuscular Hgb 30.2 pg (27.0-32.0); Mean Corpuscular Volume 92.9 fL (80-94); Mean Platelet Vol. 10.7 fl (6.2-12.0); Monocyte# 1.24 X10^3/uL; Monocyte% 12.4 % (0-10); NRBC Flagged by Analyzer 0 % (0-5); Neutrophil # 6.22 X10^3/uL (2.7-7.7); Neutrophil % 62.4 % (47-70); Platelet Count 348 K/mm3 (150-450); RBC Distribution Width CV 14.5 % (11.6-14.6); RBC Distribution Width SD 49.3 fl (35.1-43.9)
[2023-03-01] MEDS: fentaNYL drip 100 ML 7.5 MCG CONT INF (03:59)
[2023-03-01 04:11] LABS: ALB/GLOB Ratio 0.6 RATIO (0.9-2.4); AST(SGOT) 28 U/L (15-37); Alanine Aminotransfer ALT/SGPT 45 U/L (16-61); Albumin, Serum 2.2 g/dL (3.2-5.0); Alkaline Phosphatase 67 U/L (45-117); Anion Gap 5 (5-15); BUN 14 mg/dL (7-18); BUN/Creat Ratio 21.6 RATIO (10-20); Calcium,Total 7.8 mg/dL (8.5-10.1); Chloride 110 mmol/L (98-107); Creatinine, Serum 0.65 mg/dL (0.70-1.30); EST Glomerular Filtration Rate 138 mL/min (>60); Est Glom Filt Rate - Afr Amer 167 mL/min (>60); Globulin 3.8 g/dL (2.2-4.2); Glucose 240 mg/dL (74-106); Magnesium 1.8 mg/dL (1.6-2.6); Potassium 3.8 mmol/L (3.5-5.1); Sodium Level 142 mmol/L (136-145); Triglycerides 172 mg/dL
[2023-03-01] MEDS: Insulin Lispro 100 UNIT/ML INSULN.PEN SC ×4 (05:13→23:36)
[2023-03-01] MEDS: CHLORHEXIDINE GLUC 2% CLOTH 1 EACH TOWELETTE TOPICAL ×2 (05:14→08:43)
[2023-03-01] MEDS: Thiamine Hydrochloride 200 MG in 0.9% Normal Saline (50mL Bag) 50 ML IV ×3 (05:18→20:46)
[2023-03-01] MEDS: Enoxaparin 100 MG/ML Syringe SC ×2 (05:29→17:27)
[2023-03-01 05:35] LABS: Bedside Glucose 214 mg/dL (74-106)
[2023-03-01] MEDS: Vital AF 1.2 Cal Liquid 1,000 ML 65 ML GT (06:00)
[2023-03-01] MEDS: Propofol 10MG/Ml 1,000 MG/100 ML Bottle 24.8 MG CONT INF (06:38)
[2023-03-01] MEDS: Magnesium Sulfate 4gm/100mL 4 GM/100 ML IV.SOLN. IV (08:20)
[2023-03-01] MEDS: Potassium Chloride 10mEq/100mL 10 MEQ/100 ML IV.SOLN. 100 MEQ IV BOLUS ×2 (08:22→09:43)
[2023-03-01] MEDS: Midazolam 2 MG/2 ML Syringe 4 MG IV (08:32)
[2023-03-01] MEDS: 0.9% Saline Lock 10 ML Syringe IV ×2 (08:43→10:27)
[2023-03-01] MEDS: Chlorhexidine 15 ML PO ×2 (08:43→20:03)
[2023-03-01] MEDS: Insulin Glargine-YFGN 100 UNIT/ML Pen 42 UNIT SC ×2 (08:46→20:47)
[2023-03-01] MEDS: Folic Acid 1 MG in 0.9% Normal Saline (50mL Bag) 50 ML 200 MG IV (09:18)
[2023-03-01] MEDS: diazePAM 5 MG Tablet GT (09:18)
[2023-03-01] MEDS: Fenofibrate 145 MG Tablet GT (09:19)
[2023-03-01] MEDS: Senna Tablet 1 TABLET GT (09:19)
[2023-03-01] MEDS: Polyethylene Glycol 3350 17 GM PACKET GT (09:43)
[2023-03-01] MEDS: Pantoprazole Sodium 40 MG in 0.9% Normal Saline (100mL MB+) 100 ML 330 MG IV (10:08)
[2023-03-01] MEDS: Vital High Protein 1,000 ML 55 ML GT (11:08)
--- NOTE | 2023-03-01 11:08 | PCM.PN.HOSP ---
Reason for Visit Reason for Visit: Streaking Subjective Subjective No issues overnight. Patient remains either very sedated or agitated when we try to wean sedation. Objective Data Objective Data Vital Signs: Vital Signs Temp Pulse Resp BP Pulse Ox O2 Del Method O2 Flow Rate 100.2 F H 74 16 95/75 749 Mechanical Ventilator 50 03/01/23 07:00 03/01/23 07:20 03/01/23 07:20 03/01/23 07:00 03/01/23 07:20 03/01/23 08:00 02/26/23 12:00 FiO2 30 03/01/23 07:20 Oxygen Flow Rate (L/min) 50 Oxygen Delivery Method Mechanical Ventilator Weight: 106.6 kg Body Mass Index (BMI) 32.8 Intake & Output: Intake and Output for Last 24 Hours 02/27/23 02/28/23 03/01/23 23:59 23:59 23:59 Intake Total 2422.43 / 2458.63 4250.89 / 4392.89 2540.07 / 2540.07 Output Total 1457 / 1489 862 / 862 200 / 200 Balance 965.43 / 969.63 3388.89 / 3530.89 2340.07 / 2340.07 Lab / Micro Data 03/01/23 03:40 03/01/23 03:40 Labs: Laboratory Results - last 24 hr 02/28/23 11:57: POC Glucose 192 H 02/28/23 18:10: POC Glucose 241 H 02/28/23 21:15: POC Glucose 245 H 02/28/23 23:17: POC Glucose 221 H 03/01/23 03:40: WBC 10.0, RBC 4.10 L, Hgb 12.4 L, Hct 38.1 L, MCV 92.9, MCH 30.2, MCHC 32.5, RDW Std Deviation 49.3 H, RDW Coeff of Eliezer 14.5, Plt Count 348, MPV 10.7, Immature Gran % (Auto) 0.400, Neut % (Auto) 62.4, Lymph % (Auto) 21.5, [place] % (Auto) 12.4 H, Eos % (Auto) 2.8, Baso % (Auto) 0.5, Absolute Neuts (auto) 6.2, Absolute Lymphs (auto) 2.15, Nucleated RBC % 0, Sodium 142, Potassium 3.8, Chloride 110 H, Carbon Dioxide 27.0, Anion Gap 5, BUN 14, Creatinine 0.65 L, Estim Creat Clear Calc 143.20, Est GFR (MDRD) Af Amer 167, Est GFR (MDRD) Non-Af 138, BUN/Creatinine Ratio 21.6 H, Glucose 240 H, Calcium 7.8 L, Magnesium 1.8, Total Bilirubin 0.30, AST 28, ALT 45, Alkaline Phosphatase 67, Total Protein 6.0 L, Albumin 2.2 L, Globulin 3.8, Albumin/Globulin Ratio 0.6 L, Triglycerides 172 03/01/23 05:12: POC Glucose 214 H Micro: Microbiology 02/26/23 12:45 Sputum, Induced/Lukens Gram Stain - Final 02/26/23 12:45 Sputum, Induced/Lukens Respiratory Culture - Final Meth. resistant Staph. aureus 02/26/23 09:15 Nasal Secretion SARS-CoV-2 Antigen (Rapid) - Final Physical Exam Const no apparent distress Constitutional Narrative: Obese, middle-aged, white male, intubated and sedated, currently calm but has periods of intermittent agitation, appears comfortable and nontoxic HEENT normocephalic, head/scalp atraumatic and moist oral mucous membranes HEENT Narrative: ET tube/OG in place, Mallampati is 3 Eyes PERRL and conjunctivae normal Eyes Narrative: No scleral icterus Resp normal respiratory effort, no retractions, no use of accessory muscles and clear to auscultation bilaterally Auscultation: Negative for rales, rhonchi or wheezes Cardio regular rate, regular rhythm, S1 normal heart sound, S2 normal heart sound, no murmurs, no rub, no gallops and no clicks GI normal to inspection, nondistended, normoactive bowel sounds, soft to palpation, non-tender and non-distended GI Narrative: Old midline incision noted, abdomen is protuberant Extremity no clubbing, cyanosis or edema Extremity Narrative: Right transmetatarsal amputation noted from previous well-healed, pedal pulses are 2+ bilaterally Neuro moves all extremities Neuro Narrative: Patient with intermittent agitation and moves all 4 extremities spontaneously, not appropriately interactive and does not follow commands Psych Psych Narrative: Unable to assess due to intubation and sedation Assessment & Plan Assessment/Plan (1) Cardiomyopathy: (2) DTs (delirium tremens): (3) Alcohol withdrawal: QUALIFIERS: Complication of substance-induced condition: uncomplicated Qualified Code(s): F10.930 - Alcohol use, unspecified with withdrawal, uncomplicated (4) Acute HFrEF (heart failure with reduced ejection fraction): (5) Aspiration into airway: (6) Metabolic encephalopathy: (7) Acute hypoxic respiratory failure: (8) Hypokalemia: (9) Hypophosphatemia: (10) Hypomagnesemia: (11) Staphylococcus aureus pneumonia: PLAN: Plan Acute hypoxic respiratory failure secondary to acute decompensated heart failure with reduced ejection fraction and MRSA pneumonia -Patient required intubation on 02/26/2023 -FiO2 has been reduced to 30% -Awakens appropriately with sedation vacation however is very agitated and does not follow commands -Patient is either very sedated or very agitated -Respiratory status has stabilized however mental status remains a problem -Volume overload appears to be compensated -Sputum culture showing Staph aureus so we will add vancomycin and continue Unasyn for now -Await final eyes cultures and sensitivities and will then narrow -Critical care/pulmonary medicine following-appreciate input MRSA pneumonia -Finalized cultures show MRSA -Continue vancomycin day 2 of 7 -Could consider transition to linezolid DTs secondary to severe alcohol withdrawal with metabolic encephalopathy -Continue Precedex but wean as able -Patient has completed a phenobarb taper -Continue IV thiamine and folate -180 consultation is pending following extubation Atrial fibrillation -Suspect related to alcohol toxicity -Remains in sinus rhythm and has had no issues with reverting back into A-fib -Continue metoprolol IV with intent to transition back to carvedilol after extubated -Patient is on therapeutic Lovenox--> chads 2 score is 2 -Monitor for bleeding Hypokalemia -Resolved Cardiomyopathy -Type unclear however suspect nonischemic -EF is 40% on echocardiogram with global LV dysfunction -Suspect related to alcohol use and or tachycardia mediated with A-fib -Recommend appropriate goal-directed therapy with repeat echocardiogram in 6 to 8 weeks -Continue IV metoprolol with hold parameters -Hold lisinopril for now -Will need cardiology follow-up after discharge -Would tentatively plan for 6 to 8 weeks of goal-directed therapy with repeat echocardiogram [id number] -Blood sugars were markedly elevated on presentation -Home compliance is questionable -Fasting blood sugar this morning is 240 -Increase Lantus to 42 from 36 units twice daily -Change SSI to high-dose -Hold Jardiance -Hold metformin while hospitalized -Continue to monitor sugars as ordered -Cardiac/carb controlled diet HTN -Blood pressures are on the lower side right now due to the use of Precedex -Continue scheduled IV metoprolol with hold parameters -Hold lisinopril -Hold home HCTZ and amlodipine Hyperlipidemia -Continue home atorvastatin GERD -Continue IV PPI History of CASE -Suspect patient noncompliant -Patient currently intubated Osteoarthritis -Hold home meloxicam -As needed Tylenol History of tobacco abuse -Quit in 2018 -Recommend ongoing cessation Obesity -BMI 32.2 -Recommend weight loss -Complicates treatment, prognosis, outcomes DVT/GI prophylaxis -Patient is on therapeutic Lovenox due to his development of A-fib -We will continue at this time with plans to transition to Eliquis -Protonix 40 mg daily IV push CODE STATUS Full code Charges/Coding Visit Charges Inpatient E&M: 03345 Subs Hosp L2
[2023-03-01 11:15] LABS: Vancomycin, Trough Level 12.3 ug/mL (5.0-15.0)
[2023-03-01] MEDS: dexMEDEtomidine 1,000 MCG in 0.9% Normal Saline (250mL Bag) 240 ML 25.9 MCG CONT INF (11:15)
--- NOTE | 2023-03-01 11:33 | PN.CC_ITS ---
Assessment & Plan Assessment/Plan (1) Acute hypoxic respiratory failure: PLAN: Plan RECOMMENDATIONS: 1. Continue assist-control mode of mechanical ventilation. Increased FiO2 to 35% 2. Increased Valium to 10 3 times daily. Will consider Versed drip if patient continues to be agitated. He did not respond to phenobarb. 3. Remains hyperglycemic. A1c is over 10. Discussed with nutrition. His formula was changed. 4 Sputum cx +ve for MRSA. DC unasyn and cont vanc 5. Continue appropriate ICU prophylaxis. He is on lovenox bid for a fib IMPRESSIONS: 1. Acute hypoxemic respiratory failure The patient was initially intubated in the setting of worsening hypoxemia and profound agitation secondary to acute alcohol withdrawal. Supplemental fluids have been discontinued and the patient was initiated on appropriate diuretic therapy. Plan to continue supportive measures including assist-control mode of mechanical ventilation. FiO2 and PEEP will be weaned to maintain oxygen saturations at or above 90%. 2. Acute alcohol withdrawal The patient had severe DTs, despite phenobarbital taper. Plan to continue current sedation regimen along with thiamine and folic acid supplementation. Nutritional support via tube feeding can be started from my perspective. The patient will need to be monitored closely for electrolyte abnormalities. 3. Cardiomyopathy/heart failure with reduced ejection fraction Continue current supportive measures along with diuretics as tolerated. 4. History of diabetes mellitus/obstructive sleep apnea/GERD/hypertension/t obacco dependency in remission Complicates care, management, recovery and prognosis. Continue home medications as indicated. TIME: 33 minutes of critical care time, independent of procedures, was spent addressing the patient's acute hypoxemic respiratory failure, acute alcohol withdrawal, review of all data and collaboration with the care team. Subjective Subjective Agitated this morning and unable to tolerate sedation holiday Objective Data Objective Data Vital Signs: Vital Signs Temp Pulse Resp BP Pulse Ox O2 Del Method O2 Flow Rate 37.7 C H 80 22 H 106/84 H 86 Mechanical Ventilator 50 03/01/23 08:00 03/01/23 08:00 03/01/23 08:00 03/01/23 08:00 03/01/23 08:00 03/01/23 08:00 02/26/23 12:00 FiO2 30 03/01/23 08:00 Oxygen Flow Rate (L/min) 50 Oxygen Delivery Method Mechanical Ventilator Weight: 106.6 kg Body Mass Index (BMI) 32.8 Intake & Output: Intake and Output for Last 24 Hours 02/27/23 02/28/23 03/01/23 23:59 23:59 23:59 Intake Total 2422.43 / 2458.63 4250.89 / 4392.89 3022.50 / 3022.50 Output Total 1457 / 1489 862 / 862 525 / 525 Balance 965.43 / 969.63 3388.89 / 3530.89 2497.50 / 2497.50 Lab / Micro Data 03/01/23 03:40 03/01/23 03:40 Labs: Laboratory Results - last 24 hr 02/28/23 11:57: POC Glucose 192 H 02/28/23 18:10: POC Glucose 241 H 02/28/23 21:15: POC Glucose 245 H 02/28/23 23:17: POC Glucose 221 H 03/01/23 03:40: WBC 10.0, RBC 4.10 L, Hgb 12.4 L, Hct 38.1 L, MCV 92.9, MCH 30.2, MCHC 32.5, RDW Std Deviation 49.3 H, RDW Coeff of Eliezer 14.5, Plt Count 348, MPV 10.7, Immature Gran % (Auto) 0.400, Neut % (Auto) 62.4, Lymph % (Auto) 21.5, [place] % (Auto) 12.4 H, Eos % (Auto) 2.8, Baso % (Auto) 0.5, Absolute Neuts (auto) 6.2, Absolute Lymphs (auto) 2.15, Nucleated RBC % 0, Sodium 142, Potassium 3.8, Chloride 110 H, Carbon Dioxide 27.0, Anion Gap 5, BUN 14, Creatinine 0.65 L, Estim Creat Clear Calc 143.20, Est GFR (MDRD) Af Amer 167, Est GFR (MDRD) Non-Af 138, BUN/Creatinine Ratio 21.6 H, Glucose 240 H, Calcium 7.8 L, Magnesium 1.8, Total Bilirubin 0.30, AST 28, ALT 45, Alkaline Phosphatase 67, Total Protein 6.0 L, Albumin 2.2 L, Globulin 3.8, Albumin/Globulin Ratio 0.6 L, Triglycerides 172 03/01/23 05:12: POC Glucose 214 H 03/01/23 10:25: Vancomycin Trough 12.3 Micro: Microbiology 02/26/23 12:45 Sputum, Induced/Lukens Gram Stain - Final 02/26/23 12:45 Sputum, Induced/Lukens Respiratory Culture - Final Meth. resistant Staph. aureus 02/26/23 09:15 Nasal Secretion SARS-CoV-2 Antigen (Rapid) - Final Physical Exam Const Constitutional Narrative: Currently intubated, sedated and mechanically ventilated. HEENT normocephalic and head/scalp atraumatic Neck supple General: trachea midline Chest inspection of chest normal Resp normal respiratory effort Auscultation: rales and diminished lung sounds Cardio regular rate and regular rhythm GI normal to inspection, nondistended, normoactive bowel sounds Extremity General Extremity: amputation; Negative for clubbing or edema Skin no rashes or lesions noted Neuro moves all extremities and no focal motor deficits Psych Activity / Motor Behavior: restless Charges/Coding Procedures Hospitalists Procedures: 78263 Critial Care 1st Hr
[2023-03-01] MEDS: Metoprolol Tartrate 5 MG/5 ML Vial IV ×2 (12:00→17:27)
[2023-03-01] MEDS: 0.9% Normal Saline (250mL Bag) 250 ML 15 ML IV ×2 (12:01)
[2023-03-01] MEDS: Vancomycin HCl 1,750 MG in 0.9% Normal Saline (500mL Bag) 500 ML 250 MG IV ×2 (12:07→20:02)
[2023-03-01 12:15] LABS: Bedside Glucose 215 mg/dL (74-106)
--- NOTE | 2023-03-01 13:04 | PCM.RX.CS ---
Consult Antibiotic Management Pharmacy has been consulted to manage selected antiobiotic: Vancomycin Type of Intervention Type of Consult: Follow-up Suspected Infection Suspected Infection: Pneumonia Labs Labs: Sodium 142 mmol/L (136-145) 03/01/23 03:40 Potassium 3.8 mmol/L (3.5-5.1) 03/01/23 03:40 Chloride 110 mmol/L (98-107) H 03/01/23 03:40 Carbon Dioxide 27.0 mmol/L (21.0-32.0) 03/01/23 03:40 Anion Gap 5 (5-15) 03/01/23 03:40 BUN 14 mg/dL (7-18) 03/01/23 03:40 Creatinine 0.65 mg/dL (0.70-1.30) L 03/01/23 03:40 Est GFR (MDRD) Af Amer 167 mL/min (>60) 03/01/23 03:40 Est GFR (MDRD) Non-Af 138 mL/min (>60) 03/01/23 03:40 BUN/Creatinine Ratio 21.6 RATIO (10-20) H 03/01/23 03:40 Glucose 240 mg/dL (74-106) H 03/01/23 03:40 Vancomycin Trough 12.3 ug/mL (5.0-15.0) 03/01/23 10:25 Microbiology Microbiology: Microbiology 02/26/23 12:45 Sputum, Induced/Lukens Gram Stain - Final 02/26/23 12:45 Sputum, Induced/Lukens Respiratory Culture - Final Meth. resistant Staph. aureus 02/26/23 09:15 Nasal Secretion SARS-CoV-2 Antigen (Rapid) - Final Goal Trough Goal Trough: 15-20 mcg/mL Pharmacy Plan for Drug Dosing Pharmacy Plan for Drug Dosing: VANCOMYCIN LEVEL RECEIVED Current Vancomycin Dose: 1250mg q8h (at 03,11,19) Number of Doses Received: x1 1500mg dose, x2 1250mg doses Vancomycin Level: 12.3 Hours Since Last Dose: 8.5 hour level Renal Function: SrCr 0.65 Renal Function Trend: SrCr improving (SrCr was 0.83 on 02/28/23) Lab/Micro: Vancomycin Plan/Comments: resulted trough of 12.3 is below the ordered goal trough range of 15-20. recommend increasing dose to 1750mg q8h and checking a trough prior to the 4th dose Pending Level: 03/02/23 at 1130 Pharmacy Service will continue to monitor and adjust dosing as required. Follow-Up Labs Follow-Up Labs: Trough: Vancomycin (03/02/23 at 1130)
[2023-03-01] MEDS: fentaNYL drip 100 ML 15 MCG CONT INF ×2 (13:24→20:05)
[2023-03-01] MEDS: diazePAM 5 MG Tablet 10 MG GT ×2 (13:46→20:46)
[2023-03-01] MEDS: Propofol 10MG/Ml 1,000 MG/100 ML Bottle 16 MG CONT INF (16:00)
[2023-03-01 17:38] LABS: Bedside Glucose 178 mg/dL (74-106)
[2023-03-01] MEDS: Acetaminophen 650 MG/20 ML UDC GT (18:19)
[2023-03-01] MEDS: dexMEDEtomidine 1,000 MCG in 0.9% Normal Saline (250mL Bag) 240 ML 26.7 MCG CONT INF (20:03)
[2023-03-01 21:07] LABS: Bedside Glucose 195 mg/dL (74-106)
[2023-03-01] MEDS: Propofol 10MG/Ml 1,000 MG/100 ML Bottle 19.2 MG CONT INF (21:55)
[2023-03-01 23:56] LABS: Bedside Glucose 159 mg/dL (74-106)
[2023-03-02] VITALS (38 sets, daily range): BP systolic 78–99; BP diastolic 56–78; PULSE 66–87; RESP 10–23; TEMP 37.5–38.6; O2SAT 90–99; BMI 33.8
[2023-03-02] MEDS: Ipratropium/Albuterol Sulfate 3 ML AMPUL.NEB INHALATION ×4 (00:53→19:34)
[2023-03-02] MEDS: Acetaminophen 650 MG/20 ML UDC GT ×2 (01:22→09:42)
[2023-03-02] MEDS: fentaNYL drip 100 ML 15 MCG CONT INF ×4 (02:45→23:32)
[2023-03-02] MEDS: Propofol 10MG/Ml 1,000 MG/100 ML Bottle 19.2 MG CONT INF ×3 (02:57→12:13)
[2023-03-02] MEDS: Vancomycin HCl 1,750 MG in 0.9% Normal Saline (500mL Bag) 500 ML 250 MG IV ×3 (03:25→20:59)
[2023-03-02] MEDS: 0.9% Normal Saline (250mL Bag) 250 ML 15 ML IV (03:26)
[2023-03-02 04:25] LABS: Anion Gap 5 (5-15); BUN 14 mg/dL (7-18); BUN/Creat Ratio 22.5 RATIO (10-20); Calcium,Total 7.9 mg/dL (8.5-10.1); Chloride 109 mmol/L (98-107); Creatinine, Serum 0.62 mg/dL (0.70-1.30); EST Glomerular Filtration Rate 144 mL/min (>60); Est Glom Filt Rate - Afr Amer 175 mL/min (>60); Estimated Creatinine Clearance 150.13 ml/min; Glucose 219 mg/dL (74-106); Potassium 3.9 mmol/L (3.5-5.1); Sodium Level 139 mmol/L (136-145)
[2023-03-02] MEDS: dexMEDEtomidine 1,000 MCG in 0.9% Normal Saline (250mL Bag) 240 ML 26.7 MCG CONT INF (05:25)
[2023-03-02] MEDS: Insulin Lispro 100 UNIT/ML INSULN.PEN SC ×4 (05:26→23:33)
[2023-03-02] MEDS: diazePAM 5 MG Tablet 10 MG GT ×3 (05:27→20:58)
[2023-03-02] MEDS: Metoprolol Tartrate 5 MG/5 ML Vial IV ×4 (05:28→23:34)
[2023-03-02] MEDS: Thiamine Hydrochloride 200 MG in 0.9% Normal Saline (50mL Bag) 50 ML IV ×3 (05:30→20:53)
[2023-03-02] MEDS: Enoxaparin 100 MG/ML Syringe SC (05:51)
[2023-03-02] MEDS: Vital High Protein 1,000 ML 55 ML GT ×2 (05:51→23:35)
[2023-03-02 05:54] LABS: Bedside Glucose 187 mg/dL (74-106)
--- NOTE | 2023-03-02 08:11 | PCM.PN.HOSP ---
Reason for Visit Reason for Visit: Diagnoses Type 2 diabetes mellitus with hyperglycemia (02/24/23) Other disorders of phosphorus metabolism (02/24/23) Hypomagnesemia (02/24/23) Hypokalemia (02/24/23) Alcohol use, unspecified with withdrawal, uncomplicated (02/24/23) Alcohol use, unspecified with withdrawal delirium (02/24/23) Metabolic encephalopathy (02/24/23) Cardiomyopathy, unspecified (02/24/23) Chronic atrial fibrillation, unspecified (02/24/23) Acute systolic (congestive) heart failure (02/24/23) Pneumonia due to Methicillin susceptible Staphylococcus aureus (02/24/23) Acute respiratory failure with hypoxia (02/24/23) Tachycardia, unspecified (02/24/23) Suicidal ideations (02/24/23) Laceration without foreign body of right upper arm, initial encounter (02/24/23) Unspecified foreign body in respiratory tract, part unspecified causing other injury, initial encounter (02/24/23) [employer] (current) use of insulin (02/24/23) Objective Data Objective Data Vital Signs: Vital Signs Temp Pulse Resp BP Pulse Ox O2 Del Method O2 Flow Rate 100.4 F H 70 20 H 88/71 L 97 Mechanical Ventilator 50 03/02/23 07:00 03/02/23 07:00 03/02/23 07:00 03/02/23 07:00 03/02/23 07:00 03/02/23 07:00 02/26/23 12:00 FiO2 35 03/02/23 07:00 Oxygen Flow Rate (L/min) 50 Oxygen Delivery Method Mechanical Ventilator Weight: 242 lb 15.19 oz Body Mass Index (BMI) 33.8 Intake & Output: Intake and Output for Last 24 Hours 02/28/23 03/01/23 03/02/23 23:59 23:59 23:59 Intake Total 4250.89 / 4392.89 5189.32 / 5380.22 2558.69 / 2558.69 Output Total 862 / 862 675 / 675 300 / 300 Balance 3388.89 / 3530.89 4514.32 / 4705.22 2258.69 / 2258.69 Lab / Micro Data 03/02/23 09:30 03/02/23 04:00 Labs: Laboratory Results - last 24 hr 03/01/23 10:25: Vancomycin Trough 12.3 03/01/23 11:54: POC Glucose 215 H 03/01/23 17:19: POC Glucose 178 H 03/01/23 20:40: POC Glucose 195 H 03/01/23 23:35: POC Glucose 159 H 03/02/23 04:00: Sodium 139, Potassium 3.9, Chloride 109 H, Carbon Dioxide 25.0, Anion Gap 5, BUN 14, Creatinine 0.62 L, Estim Creat Clear Calc 150.13, Est GFR (MDRD) Af Amer 175, Est GFR (MDRD) Non-Af 144, BUN/Creatinine Ratio 22.5 H, Glucose 219 H, Calcium 7.9 L, Magnesium 2.0 03/02/23 05:25: POC Glucose 187 H Micro: Microbiology 02/26/23 12:45 Sputum, Induced/Lukens Gram Stain - Final 02/26/23 12:45 Sputum, Induced/Lukens Respiratory Culture - Final Meth. resistant Staph. aureus 02/26/23 09:15 Nasal Secretion SARS-CoV-2 Antigen (Rapid) - Final Physical Exam Narrative Seen and examined. Patient is sedated on IV propofol and fentanyl. On vent support. OG tube General: Sedated. HEENT: Atraumatic, PERRLA, EOMI, Normocephalic Oral: ET and OG tube Neck: Supple, No JVD, Negative Carotid Bruits Lungs: Air entry diminished in bilateral lung bases. On vent support. No crepitation/rhonchi Cardiovascular: Sinus rhythm, Normal S1, Normal S2, No murmurs Abdomen: On OG tube feeding. Bowel Sounds sluggish, Soft, Non Tender, Non-Distended : No renal angle tenderness. No suprapubic tenderness. Extremities: Mild dependent edema, Capillary Refill Less than 3 Seconds Skin: No rashes, No breakdown Musculoskeletal: No Tenderness to Palpation of Joints or Extremities Neurological: Sedated. Detailed neuro exam not obtainable no acute focal neurological deficit. Psych/Mental Status: Flat affect Const no apparent distress and well nourished Constitutional Narrative: Obese, middle-aged, white male, intubated and sedated, currently calm but has periods of intermittent agitation, appears comfortable and nontoxic Orientation / Consciousness: confused HEENT normocephalic, head/scalp atraumatic and moist oral mucous membranes Eyes PERRL and conjunctivae normal Eyes Narrative: No scleral icterus Neck no lymphadenopathy and supple Neck Narrative: Neck is short and thick, trachea midline, no noted thyroid enlargement Resp normal respiratory effort, no retractions, no use of accessory muscles and clear to auscultation bilaterally Resp Narrative: Still with mild crackles at the bases bilaterally but improved Auscultation: crackles; Negative for rales, rhonchi or wheezes Cardio regular rate, regular rhythm, S1 normal heart sound, S2 normal heart sound, no murmurs, no rub, no gallops and no clicks Cardio Narrative: Mild sinus bradycardia GI normal to inspection, nondistended, normoactive bowel sounds, soft to palpation, non-tender and non-distended GI Narrative: Old midline incision noted, abdomen is protuberant Extremity no clubbing, cyanosis or edema Extremity Narrative: Right transmetatarsal amputation noted from previous well-healed, pedal pulses are 2+ bilaterally Skin Skin Narrative: Scattered ecchymotic lesions noted on legs and left buttocks Neuro moves all extremities Neuro Narrative: Patient with intermittent agitation and moves all 4 extremities spontaneously, not appropriately interactive and does not follow commands Sensorium / Orientation: awake and oriented to place Psych Psych Narrative: Unable to assess due to intubation and sedation Mood & Affect: anxious Assessment & Plan Assessment/Plan (1) Cardiomyopathy: (2) Alcohol withdrawal: QUALIFIERS: Complication of substance-induced condition: uncomplicated Qualified Code(s): F10.930 - Alcohol use, unspecified with withdrawal, uncomplicated (3) Acute HFrEF (heart failure with reduced ejection fraction): (4) Aspiration into airway: (5) Metabolic encephalopathy: (6) Acute hypoxic respiratory failure: (7) Hypokalemia: (8) Hypophosphatemia: (9) Hypomagnesemia: (10) Staphylococcus aureus pneumonia: PLAN: Plan 1. Acute hypoxic respiratory failure secondary to acute decompensated heart failure with reduced ejection fraction and MRSA pneumonia -Patient required intubation on 02/26/2023 -FiO2 has been reduced to 30% -On vent support. FiO2 35%. PEEP 5. -Volume overload appears to be compensated 03/02 : Tmax 101.2 Fahrenheit.-Sputum culture showing MRSA. ID consulted. Agree with IV vancomycin. -Critical care/pulmonary medicine following-appreciate input. Patient on paired awake and sedation protocol as per ICU protocol DTs secondary to severe alcohol withdrawal with metabolic encephalopathy -Continue Precedex but wean as able -Patient has completed a phenobarb taper -Continue IV thiamine and folate -180 consultation is pending following extubation Atrial fibrillation -Suspect related to alcohol toxicity -Remains in sinus rhythm and has had no issues with reverting back into A-fib -Continue metoprolol IV with intent to transition back to carvedilol after extubated -Patient is on therapeutic Lovenox--> chads 2 score is 2 03/02: Lasix changed to apixaban Hypokalemia -Resolved Nonischemic cardiomyopathy c -EF is 40% on echocardiogram with global LV dysfunction -Suspect related to alcohol use and or tachycardia mediated with A-fib -Recommend appropriate goal-directed optimal medical therapy with repeat echocardiogram in 6 to 8 weeks -Continue IV metoprolol with hold parameters -Hold lisinopril for now -Will need cardiology follow-up after discharge [id number] -Blood sugars were markedly elevated on presentation -Home compliance is questionable -Fasting blood sugar this morning is 240 -Increase Lantus to 42 from 36 units twice daily -Change SSI to high-dose -Hold Jardiance -Hold metformin while hospitalized -Continue to monitor sugars as ordered -Cardiac/carb controlled diet Hypotension with history of hypertension. -Blood pressures are on the lower side right now due to the use of Precedex -Continue scheduled IV metoprolol with hold parameters -Hold lisinopril -Hold home HCTZ and amlodipine Hyperlipidemia -Continue home atorvastatin GERD -Continue IV PPI History of CASE -Suspect patient noncompliant -Patient currently intubated Osteoarthritis -Hold home meloxicam -As needed Tylenol History of tobacco abuse -Quit in 2018 -Recommend ongoing cessation Obesity -BMI 32.2 -Recommend weight loss -Complicates treatment, prognosis, outcomes DVT/GI prophylaxis -Patient is on therapeutic Lovenox due to his development of A-fib -We will continue at this time with plans to transition to Eliquis -Protonix 40 mg daily IV push CODE STATUS Full code Charges/Coding Visit Charges Inpatient E&M: 52025 Subs Hosp L3
[2023-03-02] MEDS: Chlorhexidine 15 ML PO ×2 (09:33→20:55)
[2023-03-02] MEDS: Fenofibrate 145 MG Tablet GT (09:34)
[2023-03-02] MEDS: Folic Acid 1 MG in 0.9% Normal Saline (50mL Bag) 50 ML 200 MG IV (09:34)
[2023-03-02] MEDS: Senna Tablet 1 TABLET GT (09:34)
[2023-03-02] MEDS: Polyethylene Glycol 3350 17 GM PACKET GT (09:34)
[2023-03-02] MEDS: CHLORHEXIDINE GLUC 2% CLOTH 1 EACH TOWELETTE TOPICAL (09:34)
[2023-03-02] MEDS: Pantoprazole Sodium 40 MG in 0.9% Normal Saline (100mL MB+) 100 ML 330 MG IV (09:35)
[2023-03-02] MEDS: Insulin Glargine-YFGN 100 UNIT/ML Pen 45 UNIT SC ×2 (09:38→20:55)
[2023-03-02 09:45] LABS: Absolute Lymphocyte Count 1.31 X10^3/uL (0.83-4.51); Absolute Neutrophil Count 7.2 X10^3/uL (2.0-7.7); Basophil# 0.07 X10^3/uL; Basophil% 0.7 % (0-1); Eosinophil# 0.25 X10^3/uL; Eosinophils% 2.4 % (0-5); Hematocrit 39.1 % (40-54); Hemoglobin 12.7 g/dL (13.0-16.5); Lymphocyte # 1.31 X10^3/ul (0.83-4.51); Lymphocyte % 12.5 % (19-41); Mean Corp Hgb Conc 32.5 g/dL (32-36); Mean Corpuscular Hgb 30.8 pg (27.0-32.0); Mean Corpuscular Volume 94.7 fL (80-94); Mean Platelet Vol. 12.3 fl (6.2-12.0); Monocyte# 1.57 X10^3/uL; Monocyte% 14.9 % (0-10); NRBC Flagged by Analyzer 0.2 % (0-5); Neutrophil # 7.18 X10^3/uL (2.7-7.7); Neutrophil % 68.2 % (47-70); POSITIVE COUNT YES; POSITIVE DIFFERENTIAL YES; RBC Distribution Width SD 51.6 fl (35.1-43.9); Red Blood Count 4.13 M/mm3 (4.6-6.2); White Blood Count 10.5 K/mm3 (4.4-11.0)
[2023-03-02 10:02] LABS: Differential Indicated SCAN CRITERIA MET
[2023-03-02 10:03] LABS: Platelet Estimate ADEQUATE (ADEQ)
--- NOTE | 2023-03-02 10:21 | PCM.PN.INT ---
Assessment & Plan Assessment/Plan (1) Acute hypoxic respiratory failure: PLAN: Plan RECOMMENDATIONS: 1. Continue assist-control mode of mechanical ventilation. He fails SBT due to agitation 2. Continue Valium 10mg 3 times daily. Will consider Versed drip if patient continues to be agitated. He did not respond to phenobarb. Recommend administering Valium prior to sedation holiday. Discussed with pharmacy to change AM dose time 3. Remains hyperglycemic. A1c is over 10. His formula was changed. will increase lantus 4 Sputum cx +ve for MRSA. DC unasyn and cont vanc. He has been febrile being secondary to DTs versus infection. blood cultures ordered. Patient is on therapeutic Lovenox thus DVT is unlikely 5. Continue appropriate ICU prophylaxis. He is on lovenox bid for a fib IMPRESSIONS: 1. Acute hypoxemic respiratory failure The patient was initially intubated in the setting of worsening hypoxemia and profound agitation secondary to acute alcohol withdrawal. Supplemental fluids have been discontinued and the patient was initiated on appropriate diuretic therapy. Plan to continue supportive measures including assist-control mode of mechanical ventilation. FiO2 and PEEP will be weaned to maintain oxygen saturations at or above 90%. 2. Acute alcohol withdrawal The patient had severe DTs, despite phenobarbital taper. Plan to continue current sedation regimen along with thiamine and folic acid supplementation. Nutritional support via tube feeding can be started from my perspective. The patient will need to be monitored closely for electrolyte abnormalities. 3. Cardiomyopathy/heart failure with reduced ejection fraction Continue current supportive measures along with diuretics as tolerated. 4. History of diabetes mellitus/obstructive sleep apnea/GERD/hypertension/tobacco dependency in remission Complicates care, management, recovery and prognosis. Continue home medications as indicated. TIME: 32 minutes of critical care time, independent of procedures, was spent addressing the patient's acute hypoxemic respiratory failure, acute alcohol withdrawal, review of all data and collaboration with the care team. Subjective Subjective Remains intubated. Agitation when sedation is weaned off. Objective Data Objective Data Vital Signs: Vital Signs Temp Pulse Resp BP Pulse Ox O2 Del Method O2 Flow Rate 38.0 C H 70 21 H 88/71 L 95 Mechanical Ventilator 50 03/02/23 07:00 03/02/23 08:12 03/02/23 08:12 03/02/23 07:00 03/02/23 08:12 03/02/23 08:00 02/26/23 12:00 FiO2 35 03/02/23 08:12 Oxygen Flow Rate (L/min) 50 Oxygen Delivery Method Mechanical Ventilator Weight: 110.2 kg Body Mass Index (BMI) 33.8 Intake & Output: Intake and Output for Last 24 Hours 02/28/23 03/01/23 03/02/23 23:59 23:59 23:59 Intake Total 4250.89 / 4392.89 5189.32 / 5380.22 3040.39 / 3040.39 Output Total 862 / 862 675 / 675 300 / 300 Balance 3388.89 / 3530.89 4514.32 / 4705.22 2740.39 / 2740.39 Lab / Micro Data 03/02/23 09:30 03/02/23 04:00 Labs: Laboratory Results - last 24 hr 03/01/23 10:25: Vancomycin Trough 12.3 03/01/23 11:54: POC Glucose 215 H 03/01/23 17:19: POC Glucose 178 H 03/01/23 20:40: POC Glucose 195 H 03/01/23 23:35: POC Glucose 159 H 03/02/23 04:00: Sodium 139, Potassium 3.9, Chloride 109 H, Carbon Dioxide 25.0, Anion Gap 5, BUN 14, Creatinine 0.62 L, Estim Creat Clear Calc 150.13, Est GFR (MDRD) Af Amer 175, Est GFR (MDRD) Non-Af 144, BUN/Creatinine Ratio 22.5 H, Glucose 219 H, Calcium 7.9 L, Magnesium 2.0 03/02/23 05:25: POC Glucose 187 H 03/02/23 09:30: WBC 10.5, RBC 4.13 L, Hgb 12.7 L, Hct 39.1 L, MCV 94.7 H, MCH 30.8, MCHC 32.5, RDW Std Deviation 51.6 H, RDW Coeff of Eliezer 15.0 H, Plt Count TNP, MPV 12.3 H, Immature Gran % (Auto) 1.300 H, Neut % (Auto) 68.2, Lymph % (Auto) 12.5 L, [place] % (Auto) 14.9 H, Eos % (Auto) 2.4, Baso % (Auto) 0.7, Absolute Neuts (auto) 7.2, Absolute Lymphs (auto) 1.31, Nucleated RBC % 0.2, Differential Comment COMMENT, Platelet Estimate ADEQUATE Micro: Microbiology 02/26/23 12:45 Sputum, Induced/Lukens Gram Stain - Final 02/26/23 12:45 Sputum, Induced/Lukens Respiratory Culture - Final Meth. resistant Staph. aureus 02/26/23 09:15 Nasal Secretion SARS-CoV-2 Antigen (Rapid) - Final Physical Exam Const Constitutional Narrative: Currently intubated, sedated and mechanically ventilated. HEENT normocephalic and head/scalp atraumatic Eyes PERRL and EOMs intact bilaterally Neck supple General: trachea midline Chest inspection of chest normal Resp normal respiratory effort Auscultation: rales and diminished lung sounds Cardio regular rate and regular rhythm GI normal to inspection, nondistended, normoactive bowel sounds Extremity General Extremity: amputation; Negative for clubbing or edema Skin no rashes or lesions noted Neuro moves all extremities and no focal motor deficits Psych Activity / Motor Behavior: restless Charges/Coding Procedures Hospitalists Procedures: 44117 Critial Care 1st Hr
--- NOTE | 2023-03-02 10:50 | RAD_ITS ---
STUDY: X-RAY CHEST REASON FOR EXAM: Male, 52 years old. Follow up exam TECHNIQUE: Single AP portable view of the chest. COMPARISON: Comparison is made with prior study dated February 26, 2023. FINDINGS: An endotracheal tube is seen with the tip at 3 cm proximal to the lucila. An orogastric tube is seen with the tip in the body of the stomach. EKG electrodes are seen. Bibasilar opacities worse in the left lower lobe with blunting of the left costophrenic angle. Mild improvement of the vascular congestion Normal size heart. Normal mediastinum and dinorah. Normal visualized pulmonary arteries. Normal visualized aortic arch and descending thoracic aorta. There are diffuse degenerative changes of the visualized thoracic spine. Normal visualized ribs, clavicles, and shoulders. There is no demonstrated abnormality of the visualized soft tissue structures of the upper abdomen. RAD/Chest 1 View (Portable) IMPRESSION: Support tubes are in good position. Improvement in the vascular congestion with bibasilar atelectasis and/or infiltrates worse on the left side. Electronically Signed: Karan Talbert MD at 12:11 EST ,
[2023-03-02 11:43] LABS: Vancomycin, Trough Level 19.5 ug/mL (5.0-15.0)
--- NOTE | 2023-03-02 11:53 | PCM.RX.CS ---
Consult Antibiotic Management Pharmacy has been consulted to manage selected antiobiotic: Vancomycin Type of Intervention Type of Consult: Follow-up Suspected Infection Suspected Infection: Pneumonia Prior Doses of Antibiotics Prior Doses of Antibiotics Received/Current Regimen: Vancomycin 1750 mg IV given 03/01 @ 1207, 03/01 @ 2001, and 03/02 @ 5 Labs Labs: Sodium 139 mmol/L (136-145) 03/02/23 04:00 Potassium 3.9 mmol/L (3.5-5.1) 03/02/23 04:00 Chloride 109 mmol/L (98-107) H 03/02/23 04:00 Carbon Dioxide 25.0 mmol/L (21.0-32.0) 03/02/23 04:00 Anion Gap 5 (5-15) 03/02/23 04:00 BUN 14 mg/dL (7-18) 03/02/23 04:00 Creatinine 0.62 mg/dL (0.70-1.30) L 03/02/23 04:00 Est GFR (MDRD) Af Amer 175 mL/min (>60) 03/02/23 04:00 Est GFR (MDRD) Non-Af 144 mL/min (>60) 03/02/23 04:00 BUN/Creatinine Ratio 22.5 RATIO (10-20) H 03/02/23 04:00 Glucose 219 mg/dL (74-106) H 03/02/23 04:00 Vancomycin Trough 19.5 ug/mL (5.0-15.0) H 03/02/23 11:00 Microbiology Microbiology: Microbiology 02/26/23 12:45 Sputum, Induced/Lukens Gram Stain - Final 02/26/23 12:45 Sputum, Induced/Lukens Respiratory Culture - Final Meth. resistant Staph. aureus 02/26/23 09:15 Nasal Secretion SARS-CoV-2 Antigen (Rapid) - Final Dosing Weight Weight used for dosin.2 kg Estimated Creatinine Clearance Estimated Creatinine Clearance: > 100 Pharmacy Plan for Drug Dosing Pharmacy Plan for Drug Dosing: Vancomycin trough at 7.5 hours = 19.5. Continue current dosing regimen of 1750 mg IV Q8H with a trough in 2 days. Pharmacy Service will continue to monitor and adjust dosing as required. Follow-Up Labs Follow-Up Labs: Trough: Vancomycin Date/Time Labs Ordered Labs to be done on [date and time ordered]: 122/8/23 @ 7250
[2023-03-02 12:59] LABS: Bedside Glucose 188 mg/dL (74-106)
--- NOTE | 2023-03-02 14:14 | CON.PCM.ID_ITS ---
Assessment & Plan Assessment/Plan (1) Acute hypoxic respiratory failure: PLAN: MRSA pneumonia reasonable to continue parenteral vancomycin and continue supportive care. HPI Consult Data Date of Consult: 03/02/23 HPI Narrative Reason for Consultation: MRSA pneumonia HPI Narrative: OLGA PLASENCIA, is a 52 M who presents diabetes mellitus, alcohol abuse who was admitted roughly 1 week ago with alcohol intoxication and was subsidy intubated for airway protection and respiratory failure and remains on ventilator at this time. History is obtained through review of the records. Respiratory culture growing MRSA. Patient does have patchy bilateral infiltrates on chest film. Currently sedated on the ventilator FiO2 35%. PEEP of 5. PFSH Medical History Abdominal pain Arthritis Chronic pain Depression Diabetes GERD (gastroesophageal reflux disease) HTN (hypertension), benign Hyperlipidemia Screening for colon cancer Seizure disorder Sleep apnea Urinary urgency Ventral hernia Home Medications compress.stocking,knee,reg,lrg #2 ea 05/18/18 [Rx Last Taken Unknown] dextroamphetamine-amphetamine ER 50 mg capsule,3 bead,ext release 24hr (Mydayis) 50 mg PO DAILY Adult ADD 01/23/19 [History Last Taken Unknown] blood sugar diagnostic 02/15/20 [History Last Taken Unknown] buprenorphine 10 mcg/hour weekly transdermal patch 1 patch transdermal Q7D 03/26/20 [History Last Taken Unknown] trazodone 100 mg tablet 300 mg PO QHS sleep 04/24/20 [History Last Taken Unknown] pen needle, diabetic 31 gauge x 5/16 (Unifine Pentips) #200 ea 06/16/21 [Rx Last Taken Unknown] alcohol swabs 4 pad topical .qid Check with primary doctor #200 ea 09/08/21 [Rx Last Taken Unknown] empagliflozin 25 mg tablet 25 mg PO QAM diabetes #90 tabs 10/20/21 [Rx Last Taken Unknown] fluticasone propionate 50 mcg/actuation nasal spray,suspension 2 spray intranasal DAILY PRN Congestion #16 grams 10/30/21 [Rx Last Taken Unknown] albuterol sulfate 90 mcg/actuation aerosol inhaler (ProAir HFA) 1 - 2 puff inhalation Q6H PRN shortness of breath or wheezing #8.5 grams 05/18/22 [Rx Last Taken Unknown] albuterol sulfate 90 mcg/actuation aerosol inhaler (Ventolin HFA) 2 puff inhalation Q6H PRN shortness of breath or wheezing #8.5 grams 05/18/22 [Rx Last Taken Unknown] doxazosin 2 mg tablet 2 mg PO QHS blood pressure #90 tabs 05/18/22 [Rx Last Taken Unknown] meloxicam 15 mg tablet 15 mg PO DAILY PRN pain #30 tabs 05/18/22 [Rx Last Taken Unknown] blood sugar diagnostic (True Metrix Glucose Test Strip) #100 ea 06/17/22 [Rx Last Taken Unknown] blood-glucose meter (True Metrix Glucose Meter) #1 ea 06/17/22 [Rx Last Taken Unknown] lancets 28 gauge (FreeStyle Lancets) #200 ea 06/17/22 [Rx Last Taken Unknown] flash glucose scanning reader (FreeStyle Frances 2 [place]) #1 ea 07/12/22 [Rx Last Taken Unknown] insulin lispro 100 unit/mL subcutaneous pen (Humalog KwikPen (U-100) Insulin) See Rx Instructions .Route .COMPLEX #15 mL 08/02/22 [Rx Last Taken Unknown] amlodipine 10 mg tablet See Rx Instructions .Route .COMPLEX #30 tabs 01/14/23 [Rx Last Taken Unknown] atorvastatin 40 mg tablet See Rx Instructions .Route .COMPLEX #30 tabs 01/14/23 [Rx Last Taken Unknown] fenofibrate nanocrystallized 145 mg tablet See Rx Instructions .Route .COMPLEX #30 tabs 01/14/23 [Rx Last Taken Unknown] hydrochlorothiazide 25 mg tablet See Rx Instructions .Route .COMPLEX #30 tabs 01/14/23 [Rx Last Taken Unknown] flash glucose sensor (FreeStyle Frances 2 Sensor kit) #1 ea 02/01/23 [Rx Last Taken Unknown] insulin degludec 100 unit/mL (3 mL) subcutaneous pen 65 unit (0.65 mL) subcut QHS diabetes 3 months #58.5 mL 02/01/23 [Rx Last Taken Unknown] pantoprazole 40 mg tablet,delayed release See Rx Instructions .Route .COMPLEX #60 tabs 02/10/23 [Rx Last Taken Unknown] metformin 500 mg tablet,extended release 24hr (osmotic) 1,000 mg (2 x 500 mg) PO BID diabetes 3 months #360 tabs 02/16/23 [Rx Last Taken Unknown] Allergy/AdvReac Type Severity Reaction Status Date / Time No Known Allergies Allergy Verified 02/23/23 19:37 Family History Father Diabetes Mother Multiple sclerosis Other CVA (cerebral vascular accident) Surgical History cyst removed from pancreas History of amputation History of bilateral knee replacement Post-splenectomy S/P total knee arthroplasty Social History Smoking Status: Former smoker Tobacco: How many years used: 30 Smokeless tobacco user: snuff how long ago did patient quit smokin, 1ppd second hand exposure: Yes alcohol intake: former year quit: 2018 substance use type: does not use what type of physical activity do you participate in: none ROS ROS Narrative Unable to be obtained patient is on the ventilator Physical Exam Narrative Sedated on the ventilator lungs with some scattered rhonchi heart exam S1-S2 abdomen is obese but soft. Right foot metatarsal amputation Lab / Micro Data 03/02/23 09:30 03/02/23 04:00 Labs: Laboratory Results - last 24 hr 03/01/23 17:19: POC Glucose 178 H 03/01/23 20:40: POC Glucose 195 H 03/01/23 23:35: POC Glucose 159 H 03/02/23 04:00: Sodium 139, Potassium 3.9, Chloride 109 H, Carbon Dioxide 25.0, Anion Gap 5, BUN 14, Creatinine 0.62 L, Estim Creat Clear Calc 150.13, Est GFR (MDRD) Af Amer 175, Est GFR (MDRD) Non-Af 144, BUN/Creatinine Ratio 22.5 H, Glucose 219 H, Calcium 7.9 L, Magnesium 2.0 03/02/23 05:25: POC Glucose 187 H 03/02/23 09:30: WBC 10.5, RBC 4.13 L, Hgb 12.7 L, Hct 39.1 L, MCV 94.7 H, MCH 30.8, MCHC 32.5, RDW Std Deviation 51.6 H, RDW Coeff of Eliezer 15.0 H, Plt Count TNP, MPV 12.3 H, Immature Gran % (Auto) 1.300 H, Neut % (Auto) 68.2, Lymph % (Auto) 12.5 L, [place] % (Auto) 14.9 H, Eos % (Auto) 2.4, Baso % (Auto) 0.7, Absolute Neuts (auto) 7.2, Absolute Lymphs (auto) 1.31, Nucleated RBC % 0.2, Differential Comment COMMENT, Platelet Estimate ADEQUATE 03/02/23 11:00: Vancomycin Trough 19.5 H 03/02/23 12:16: POC Glucose 188 H Imagaing Radiology Impression Chest X-Ray 03/02/23 10:50 IMPRESSION: Support tubes are in good position. Improvement in the vascular congestion with bibasilar atelectasis and/or infiltrates worse on the left side. Electronically Signed: Karan Talbert MD at 12:11 EST ,
[2023-03-02] MEDS: dexMEDEtomidine 1,000 MCG in 0.9% Normal Saline (250mL Bag) 240 ML 27.6 MCG CONT INF (16:00)
[2023-03-02] MEDS: 0.9% Saline Lock 10 ML Syringe IV ×2 (17:27→23:34)
[2023-03-02 17:57] LABS: Bedside Glucose 209 mg/dL (74-106)
[2023-03-02] MEDS: Propofol 10MG/Ml 1,000 MG/100 ML Bottle 12.8 MG CONT INF (18:41)
[2023-03-02] MEDS: APIXABAN 5 MG TABLET PO (20:58)
[2023-03-02 21:33] LABS: Bedside Glucose 205 mg/dL (74-106)
[2023-03-02] MEDS: Propofol 10MG/Ml 1,000 MG/100 ML Bottle 16 MG CONT INF (23:33)
[2023-03-03] VITALS (39 sets, daily range): BP systolic 89–118; BP diastolic 63–84; PULSE 66–81; RESP 12–32; TEMP 37.2–38.4; O2SAT 90–100; BMI 35.2
[2023-03-03 00:06] LABS: Bedside Glucose 184 mg/dL (74-106)
[2023-03-03] MEDS: Ipratropium/Albuterol Sulfate 3 ML AMPUL.NEB INHALATION ×4 (01:25→20:16)
[2023-03-03] MEDS: dexMEDEtomidine 1,000 MCG in 0.9% Normal Saline (250mL Bag) 240 ML 27.6 MCG CONT INF (02:05)
[2023-03-03] MEDS: Propofol 10MG/Ml 1,000 MG/100 ML Bottle 16 MG CONT INF (03:35)
[2023-03-03] MEDS: diazePAM 5 MG Tablet 10 MG GT ×3 (03:35→21:02)
[2023-03-03] MEDS: CHLORHEXIDINE GLUC 2% CLOTH 1 EACH TOWELETTE TOPICAL (03:35)
[2023-03-03] MEDS: Vancomycin HCl 1,750 MG in 0.9% Normal Saline (500mL Bag) 500 ML 250 MG IV ×3 (03:35→20:59)
[2023-03-03] MEDS: 0.9% Saline Lock 10 ML Syringe IV ×3 (03:40→23:48)
[2023-03-03 04:13] LABS: Anion Gap 4 (5-15); BUN 15 mg/dL (7-18); Chloride 109 mmol/L (98-107); Creatinine, Serum 0.58 mg/dL (0.70-1.30); EST Glomerular Filtration Rate 158 mL/min (>60); Est Glom Filt Rate - Afr Amer 191 mL/min (>60); Estimated Creatinine Clearance 160.48 ml/min; Glucose 205 mg/dL (74-106); Magnesium 1.8 mg/dL (1.6-2.6); Potassium 4.2 mmol/L (3.5-5.1); Sodium Level 138 mmol/L (136-145)
[2023-03-03] MEDS: TITRATION PARAMETER CHANGE 1 EACH IV (05:56)
[2023-03-03] MEDS: Thiamine Hydrochloride 200 MG in 0.9% Normal Saline (50mL Bag) 50 ML IV ×2 (05:56→13:40)
[2023-03-03] MEDS: Insulin Lispro 100 UNIT/ML INSULN.PEN SC ×3 (05:57→18:05)
[2023-03-03] MEDS: Metoprolol Tartrate 5 MG/5 ML Vial IV ×4 (05:58→23:48)
[2023-03-03 06:28] LABS: Bedside Glucose 171 mg/dL (74-106)
[2023-03-03] MEDS: fentaNYL drip 100 ML 12.5 MCG CONT INF (06:50)
[2023-03-03] MEDS: Fenofibrate 145 MG Tablet GT (07:48)
[2023-03-03] MEDS: APIXABAN 5 MG TABLET PO ×2 (07:49→21:01)
[2023-03-03] MEDS: Polyethylene Glycol 3350 17 GM PACKET GT ×2 (07:49→21:01)
[2023-03-03] MEDS: Chlorhexidine 15 ML PO ×2 (07:49→20:59)
[2023-03-03] MEDS: Pantoprazole Sodium 40 MG in 0.9% Normal Saline (100mL MB+) 100 ML 330 MG IV (07:50)
[2023-03-03] MEDS: Senna Tablet 1 TABLET GT (07:50)
[2023-03-03] MEDS: Propofol 10MG/Ml 1,000 MG/100 ML Bottle 17.2 MG CONT INF ×2 (10:13→16:36)
[2023-03-03] MEDS: Insulin Glargine-YFGN 100 UNIT/ML Pen 48 UNIT SC ×2 (10:14→21:01)
[2023-03-03] MEDS: Folic Acid 1 MG in 0.9% Normal Saline (50mL Bag) 50 ML 200 MG IV (10:14)
[2023-03-03] MEDS: Senna/Docusate Sodium 1 Tablet GT (10:15)
--- NOTE | 2023-03-03 10:30 | CASEMGMT ---
Social Work SW participated in ICU rounds. Pt is still intubated. SW will meet w/pt when appropriate. BARRINGTON Junior
--- NOTE | 2023-03-03 10:41 | NURSING ---
update given to significant other, Carin and mother, Reanna when they've called into unit.
[2023-03-03] MEDS: dexMEDEtomidine 1,000 MCG in 0.9% Normal Saline (250mL Bag) 240 ML 31.5 MCG CONT INF (11:05)
[2023-03-03 11:37] LABS: Bedside Glucose 154 mg/dL (74-106)
[2023-03-03] MEDS: QUEtiapine 25 MG Tablet 50 MG PO ×2 (11:46→21:02)
--- NOTE | 2023-03-03 15:00 | PN.CC_ITS ---
Assessment & Plan Assessment/Plan (1) Acute hypoxic respiratory failure: PLAN: Plan RECOMMENDATIONS: 1. Continue assist-control mode of mechanical ventilation. He fails SBT due to agitation 2. Continue Valium 10mg 3 times daily. Added Seroquel 50 twice daily today. His QTc on twelve-lead EKG was 454. He did not respond to phenobarb had already completed the taper when he was intubated. 3. Remains hyperglycemic. A1c is over 10. His formula was changed. Further insulin adjustments done. 4 Sputum cx +ve for MRSA. DC unasyn and cont vanc. He has been febrile maybe s econdary to DTs versus infection vs both. blood cultures obtained. Patient is AC thus DVT is unlikely. Primary team consulted ID. CXR is slightly worse on the L. 5. He was switched to Eliquis by primary team 5. Continue appropriate ICU prophylaxis. IMPRESSIONS: 1. Acute hypoxemic respiratory failure The patient was initially intubated in the setting of worsening hypoxemia and profound agitation secondary to acute alcohol withdrawal. Supplemental fluids have been discontinued and the patient was initiated on appropriate diuretic therapy. Plan to continue supportive measures including assist-control mode of mechanical ventilation. FiO2 and PEEP will be weaned to maintain oxygen saturations at or above 90%. 2. Acute alcohol withdrawal The patient had severe DTs, despite phenobarbital taper. Plan to continue current sedation regimen along with thiamine and folic acid supplementation. Nutritional support via tube feeding can be started from my perspective. The patient will need to be monitored closely for electrolyte abnormalities. 3. Cardiomyopathy/heart failure with reduced ejection fraction Continue current supportive measures along with diuretics as tolerated. 4. History of diabetes mellitus/obstructive sleep apnea/GERD/hypertension/tobacco dependency in remission Complicates care, management, recovery and prognosis. Continue home medications as indicated. TIME: 33 minutes of critical care time, independent of procedures, was spent addressing the patient's acute hypoxemic respiratory failure, acute alcohol withdrawal, review of all data and collaboration with the care team. Subjective Subjective Agitationworsens with sedation holiday and thus unable to undergo SBT. Objective Data Objective Data Vital Signs: Vital Signs Temp Pulse Resp BP Pulse Ox O2 Del Method O2 Flow Rate 38.3 C H 75 19 H 115/68 93 Mechanical Ventilator 50 03/03/23 14:00 03/03/23 14:00 03/03/23 14:00 03/03/23 14:00 03/03/23 14:00 03/03/23 14:00 02/26/23 12:00 FiO2 40 03/03/23 14:00 Oxygen Flow Rate (L/min) 50 Oxygen Delivery Method Mechanical Ventilator Weight: 114.7 kg Body Mass Index (BMI) 35.2 Intake & Output: Intake and Output for Last 24 Hours 03/01/23 03/02/23 03/03/23 23:59 23:59 23:59 Intake Total 5189.32 / 5380.22 6272.19 / 6313.99 2401.92 / 2401.92 Output Total 675 / 675 800 / 1085 695 / 695 Balance 4514.32 / 4705.22 5472.19 / 5228.99 1706.92 / 1706.92 Lab / Micro Data 03/02/23 09:30 03/03/23 03:49 Labs: Laboratory Results - last 24 hr 03/02/23 17:26: POC Glucose 209 H 03/02/23 20:53: POC Glucose 205 H 03/02/23 23:28: POC Glucose 184 H 03/03/23 03:49: Sodium 138, Potassium 4.2, Chloride 109 H, Carbon Dioxide 25.0, Anion Gap 4 L, BUN 15, Creatinine 0.58 L, Estim Creat Clear Calc 160.48, Est GFR (MDRD) Af Amer 191, Est GFR (MDRD) Non-Af 158, BUN/Creatinine Ratio 26.0 H, Glucose 205 H, Calcium 8.0 L, Magnesium 1.8 03/03/23 05:57: POC Glucose 171 H 03/03/23 11:09: POC Glucose 154 H Micro: Microbiology 02/26/23 12:45 Sputum, Induced/Lukens Gram Stain - Final 02/26/23 12:45 Sputum, Induced/Lukens Respiratory Culture - Final Meth. resistant Staph. aureus 02/26/23 09:15 Nasal Secretion SARS-CoV-2 Antigen (Rapid) - Final Physical Exam Const Constitutional Narrative: Currently intubated, sedated and mechanically ventilated. HEENT normocephalic and head/scalp atraumatic Eyes PERRL and EOMs intact bilaterally Neck supple General: trachea midline Chest inspection of chest normal Resp normal respiratory effort Auscultation: rales and diminished lung sounds Cardio regular rate and regular rhythm GI normal to inspection, nondistended, normoactive bowel sounds Extremity General Extremity: amputation; Negative for clubbing or edema Skin no rashes or lesions noted Neuro moves all extremities and no focal motor deficits Psych Activity / Motor Behavior: restless Charges/Coding Procedures Hospitalists Procedures: 39098 Critial Care 1st Hr
--- NOTE | 2023-03-03 15:25 | PCM.PN.HOSP ---
Reason for Visit Reason for Visit: Diagnoses Type 2 diabetes mellitus with hyperglycemia (02/24/23) Other disorders of phosphorus metabolism (02/24/23) Hypomagnesemia (02/24/23) Hypokalemia (02/24/23) Alcohol use, unspecified with withdrawal, uncomplicated (02/24/23) Alcohol use, unspecified with withdrawal delirium (02/24/23) Metabolic encephalopathy (02/24/23) Cardiomyopathy, unspecified (02/24/23) Chronic atrial fibrillation, unspecified (02/24/23) Acute systolic (congestive) heart failure (02/24/23) Pneumonia due to Methicillin susceptible Staphylococcus aureus (02/24/23) Acute respiratory failure with hypoxia (02/24/23) Tachycardia, unspecified (02/24/23) Suicidal ideations (02/24/23) Laceration without foreign body of right upper arm, initial encounter (02/24/23) Unspecified foreign body in respiratory tract, part unspecified causing other injury, initial encounter (02/24/23) long term care social worker (current) use of insulin (02/24/23) Objective Data Objective Data Vital Signs: Vital Signs Temp Pulse Resp BP Pulse Ox O2 Del Method O2 Flow Rate 100.9 F H 74 17 104/69 93 Mechanical Ventilator 50 03/03/23 15:00 03/03/23 15:23 03/03/23 15:23 03/03/23 15:00 03/03/23 15:23 03/03/23 15:00 02/26/23 12:00 FiO2 40 03/03/23 15:23 Oxygen Flow Rate (L/min) 50 Oxygen Delivery Method Mechanical Ventilator Weight: 252 lb 13.923 oz Body Mass Index (BMI) 35.2 Intake & Output: Intake and Output for Last 24 Hours 03/01/23 03/02/23 03/03/23 23:59 23:59 23:59 Intake Total 5189.32 / 5380.22 6272.19 / 6313.99 2464.72 / 2464.72 Output Total 675 / 675 800 / 1085 695 / 695 Balance 4514.32 / 4705.22 5472.19 / 5228.99 1769.72 / 1769.72 Lab / Micro Data 03/02/23 09:30 03/03/23 03:49 Labs: Laboratory Results - last 24 hr 03/02/23 17:26: POC Glucose 209 H 03/02/23 20:53: POC Glucose 205 H 03/02/23 23:28: POC Glucose 184 H 03/03/23 03:49: Sodium 138, Potassium 4.2, Chloride 109 H, Carbon Dioxide 25.0, Anion Gap 4 L, BUN 15, Creatinine 0.58 L, Estim Creat Clear Calc 160.48, Est GFR (MDRD) Af Amer 191, Est GFR (MDRD) Non-Af 158, BUN/Creatinine Ratio 26.0 H, Glucose 205 H, Calcium 8.0 L, Magnesium 1.8 03/03/23 05:57: POC Glucose 171 H 03/03/23 11:09: POC Glucose 154 H Micro: Microbiology 02/26/23 12:45 Sputum, Induced/Lukens Gram Stain - Final 02/26/23 12:45 Sputum, Induced/Lukens Respiratory Culture - Final Meth. resistant Staph. aureus 02/26/23 09:15 Nasal Secretion SARS-CoV-2 Antigen (Rapid) - Final Physical Exam Narrative Seen and examined. Patient is sedated on IV propofol and fentanyl. On vent support. OG tube General: Sedated. HEENT: Atraumatic, PERRLA, EOMI, Normocephalic Oral: ET and OG tube Neck: Supple, No JVD, Negative Carotid Bruits Lungs: Air entry diminished in bilateral lung bases. On vent support. No crepitation/rhonchi Cardiovascular: Sinus rhythm, Normal S1, Normal S2, No murmurs Abdomen: On OG tube feeding. Bowel Sounds sluggish, Soft, Non Tender, Non-Distended : Mattson catheter insertion on 02/26. Dark-colored urine. No renal angle tenderness. No suprapubic tenderness. Extremities: Mild dependent edema, Capillary Refill Less than 3 Seconds Skin: No rashes, No breakdown Musculoskeletal: No Tenderness to Palpation of Joints or Extremities Neurological: Sedated. Detailed neuro exam not obtainable no acute focal neurological deficit. Psych/Mental Status: Flat affect Const no apparent distress and well nourished Constitutional Narrative: Obese, middle-aged, white male, intubated and sedated, currently calm but has periods of intermittent agitation, appears comfortable and nontoxic Orientation / Consciousness: confused HEENT normocephalic, head/scalp atraumatic and moist oral mucous membranes Eyes PERRL and conjunctivae normal Eyes Narrative: No scleral icterus Neck no lymphadenopathy and supple Neck Narrative: Neck is short and thick, trachea midline, no noted thyroid enlargement Resp normal respiratory effort, no retractions, no use of accessory muscles and clear to auscultation bilaterally Resp Narrative: Still with mild crackles at the bases bilaterally but improved Auscultation: crackles; Negative for rales, rhonchi or wheezes Cardio regular rate, regular rhythm, S1 normal heart sound, S2 normal heart sound, no murmurs, no rub, no gallops and no clicks Cardio Narrative: Mild sinus bradycardia GI normal to inspection, nondistended, normoactive bowel sounds, soft to palpation, non-tender and non-distended GI Narrative: Old midline incision noted, abdomen is protuberant Extremity no clubbing, cyanosis or edema Extremity Narrative: Right transmetatarsal amputation noted from previous well-healed, pedal pulses are 2+ bilaterally Skin Skin Narrative: Scattered ecchymotic lesions noted on legs and left buttocks Neuro moves all extremities Neuro Narrative: Patient with intermittent agitation and moves all 4 extremities spontaneously, not appropriately interactive and does not follow commands Sensorium / Orientation: awake and oriented to place Psych Psych Narrative: Unable to assess due to intubation and sedation Mood & Affect: anxious Assessment & Plan Assessment/Plan (1) Alcohol withdrawal: QUALIFIERS: Complication of substance-induced condition: uncomplicated Qualified Code(s): F10.930 - Alcohol use, unspecified with withdrawal, uncomplicated (2) Acute HFrEF (heart failure with reduced ejection fraction): (3) Metabolic encephalopathy: (4) Acute hypoxic respiratory failure: (5) Staphylococcus aureus pneumonia: PLAN: Plan 1. Acute hypoxic respiratory failure secondary to acute decompensated heart failure with reduced ejection fraction and MRSA pneumonia -Patient required intubation on 02/26/2023 -FiO2 has been reduced to 30% -On vent support. FiO2 35%. PEEP 5. -Volume overload appears to be compensated 03/02 : Tmax 101.2 Fahrenheit.-Sputum culture showing MRSA. ID consulted. Agree with IV vancomycin. -Critical care/pulmonary medicine following-appreciate input. Patient on paired awake and sedation protocol as per ICU protocol 03/03: Patient still has temperature Tmax 101.2 Fahrenheit. On IV antibiotic. The patient failed extubation trial. Remains intubated. Discussed with the de ionizer operator. DTs secondary to severe alcohol withdrawal with metabolic encephalopathy -Continue Precedex but wean as able -Patient has completed a phenobarb taper -Continue IV thiamine and folate -180 consultation is pending following extubation Atrial fibrillation -Suspect related to alcohol toxicity -Remains in sinus rhythm and has had no issues with reverting back into A-fib -Continue metoprolol IV with intent to transition back to carvedilol after extubated -Patient is on therapeutic Lovenox--> chads 2 score is 2 03/02: Lasix changed to apixaban 03/03: Heart rate is controlled in the 70s. Sinus rhythm on school lunch monitor. Hypokalemia -Resolved Nonischemic cardiomyopathy c -EF is 40% on echocardiogram with global LV dysfunction -Suspect related to alcohol use and or tachycardia mediated with A-fib -Recommend appropriate goal-directed optimal medical therapy with repeat echocardiogram in 6 to 8 weeks -Continue IV metoprolol with hold parameters -Hold lisinopril for now -Will need cardiology follow-up after discharge [id number] -Blood sugars were markedly elevated on presentation -Home compliance is questionable -Fasting blood sugar this morning is 240 -Increase Lantus to 42 from 36 units twice daily -Change SSI to high-dose -Hold Jardiance -Hold metformin while hospitalized -Continue to monitor sugars as ordered -Cardiac/carb controlled diet 03/03: A1c 10.9% glucose 205 in BMP. Glucose varies between 150-200. Insulin dose titrated up. Hypotension with history of hypertension. -Blood pressures are on the lower side right now due to the use of Precedex -Continue scheduled IV metoprolol with hold parameters -Hold lisinopril -Hold home HCTZ and amlodipine 03/03: Hypotension has resolved. Hyperlipidemia -Continue home atorvastatin GERD -Continue IV PPI History of CASE -Suspect patient noncompliant -Patient currently intubated Osteoarthritis -Hold home meloxicam -As needed Tylenol History of tobacco abuse -Quit in 2018 -Recommend ongoing cessation Obesity -BMI 32.2 -Recommend weight loss -Complicates treatment, prognosis, outcomes DVT/GI prophylaxis -Patient is on therapeutic Lovenox due to his development of A-fib -We will continue at this time with plans to transition to Eliquis -Protonix 40 mg daily IV push CODE STATUS Full code Charges/Coding Visit Charges Inpatient E&M: 10867 Subs Hosp L3
[2023-03-03] MEDS: fentaNYL drip 100 ML 10 MCG CONT INF (16:37)
[2023-03-03 17:30] LABS: Bedside Glucose 159 mg/dL (74-106)
[2023-03-03] MEDS: Vital High Protein 1,000 ML 55 ML GT (18:05)
[2023-03-03] MEDS: dexMEDEtomidine 1,000 MCG in 0.9% Normal Saline (250mL Bag) 240 ML 40.1 MCG CONT INF (18:16)
[2023-03-03] MEDS: Senna/Docusate Sodium 1 Tablet 2 TABLET GT (21:02)
[2023-03-03 22:34] LABS: Bedside Glucose 158 mg/dL (74-106)
--- NOTE | 2023-03-03 23:27 | NURSING ---
2230- EMAR marking propofol as infused. Propofol bottle still running at this time.
[2023-03-03] MEDS: Propofol 10MG/Ml 1,000 MG/100 ML Bottle 20.6 MG CONT INF (23:46)
[2023-03-04] VITALS (39 sets, daily range): BP systolic 97–122; BP diastolic 60–83; PULSE 60–81; RESP 12–22; TEMP 36.7–38.8; O2SAT 85–96; BMI 36.0
[2023-03-04 00:18] LABS: Bedside Glucose 142 mg/dL (74-106)
[2023-03-04] MEDS: dexMEDEtomidine 1,000 MCG in 0.9% Normal Saline (250mL Bag) 240 ML 43 MCG CONT INF (00:50)
--- NOTE | 2023-03-04 01:10 | NURSING ---
2346- new bottle of prop hung, SUJEY incorrectly marking bottle infused for approximately 30 mins
[2023-03-04] MEDS: Ipratropium/Albuterol Sulfate 3 ML AMPUL.NEB INHALATION ×4 (01:50→19:12)
[2023-03-04] MEDS: CHLORHEXIDINE GLUC 2% CLOTH 1 EACH TOWELETTE TOPICAL (02:37)
[2023-03-04] MEDS: 0.9% Saline Lock 10 ML Syringe IV ×4 (02:37→20:51)
[2023-03-04] MEDS: fentaNYL drip 100 ML 10 MCG CONT INF ×2 (02:37→14:35)
[2023-03-04] MEDS: Vancomycin HCl 1,750 MG in 0.9% Normal Saline (500mL Bag) 500 ML 250 MG IV (03:39)
[2023-03-04] MEDS: Propofol 10MG/Ml 1,000 MG/100 ML Bottle 17.2 MG CONT INF (03:54)
[2023-03-04] MEDS: diazePAM 5 MG Tablet 10 MG GT ×2 (03:54→21:41)
[2023-03-04 04:42] LABS: Anion Gap 4 (5-15); BUN 12 mg/dL (7-18); BUN/Creat Ratio 20.8 RATIO (10-20); Calcium,Total 8.4 mg/dL (8.5-10.1); Chloride 109 mmol/L (98-107); Creatinine, Serum 0.58 mg/dL (0.70-1.30); EST Glomerular Filtration Rate 158 mL/min (>60); Est Glom Filt Rate - Afr Amer 191 mL/min (>60); Estimated Creatinine Clearance 160.48 ml/min; Glucose 204 mg/dL (74-106); Potassium 4.2 mmol/L (3.5-5.1); Sodium Level 139 mmol/L (136-145); Triglycerides 134 mg/dL
[2023-03-04] MEDS: TITRATION PARAMETER CHANGE 1 EACH IV (05:27)
[2023-03-04] MEDS: Insulin Lispro 100 UNIT/ML INSULN.PEN SC ×3 (05:46→17:37)
[2023-03-04] MEDS: Metoprolol Tartrate 5 MG/5 ML Vial IV ×3 (05:47→17:37)
[2023-03-04 06:33] LABS: Bedside Glucose 232 mg/dL (74-106)
--- NOTE | 2023-03-04 06:59 | NURSING ---
EMAR marking precedex infused at 0658, precedex bag not empty at this time and still running
[2023-03-04] MEDS: Furosemide 20 MG/2 ML VIAL IV ×3 (07:11→21:40)
--- NOTE | 2023-03-04 08:29 | PN.CC_ITS ---
Assessment & Plan Assessment/Plan (1) Acute hypoxic respiratory failure: PLAN: Plan RECOMMENDATIONS: 1. Continue mechanical ventilation. Spontaneous breathing and awakening trials per protocol 2. Continue current sedation protocol 3. Continue tube feeds. Insulin sliding scale continue 4 Continue empiric antibiotics 5. Continue systemic anticoagulation with Eliquis 5. Initiate aggressive diuresis IMPRESSIONS: 1. Acute hypoxemic respiratory failure The patient was initially intubated in the setting of worsening hypoxemia and profound agitation secondary to acute alcohol withdrawal. Patient significantly positive over the course of his hospitalization. Aggressive diuresis will be initiated. Continue with spontaneous breathing and awakening trials per protocol plan to continue supportive measures including assist- control mode of mechanical ventilation. FiO2 and PEEP will be weaned to maintain oxygen saturations at or above 90%. 2. Acute alcohol withdrawal The patient had severe DTs, despite phenobarbital taper. Plan to continue current sedation regimen. Okay to discontinue thiamine and folic acid as the load was completed. Nutritional support via tube feeding can be started from my perspective. The patient will need to be monitored closely for electrolyte abnormalities. 3. Cardiomyopathy/heart failure with reduced ejection fraction Continue current supportive measures along with diuretics as tolerated. Patient does remain anticoagulated with Eliquis therapy. 4. History of diabetes mellitus/obstructive sleep apnea/GERD/hypertension/tobacco dependency in remission/opioid induced obstipation Complicates care, management, recovery and prognosis. Continue home medications as indicated. Patient has not had a bowel movement in 5 days despite laxatives and MiraLAX. Will order suppository. Patient not showing signs of obstruction and tolerating tube feeds. TIME: 37 minutes of critical care time, independent of procedures, was spent addressing the patient's acute hypoxemic respiratory failure, acute alcohol withdrawal, review of all data and collaboration with the care team. Subjective Subjective Patient did okay overnight from a hemodynamic standpoint. Patient did have desaturations as associated with a spontaneous awakening trial this morning, so no spontaneous breathing trial was obtained. Patient continues to be impulsive with intermittent fevers. Objective Data Objective Data Vital Signs: Vital Signs Temp Pulse Resp BP Pulse Ox O2 Del Method O2 Flow Rate 38.8 C H 74 19 H 107/67 89 Mechanical Ventilator 50 03/04/23 07:00 03/04/23 07:00 03/04/23 07:00 03/04/23 07:00 03/04/23 07:00 03/04/23 07:00 02/26/23 12:00 FiO2 45 03/04/23 07:00 Oxygen Flow Rate (L/min) 50 Oxygen Delivery Method Mechanical Ventilator Weight: 116.7 kg Body Mass Index (BMI) 36.0 Intake & Output: Intake and Output for Last 24 Hours 03/02/23 03/03/23 03/04/23 23:59 23:59 23:59 Intake Total 6272.19 / 6313.99 3970.71 / 4028.52 2145.91 / 2145.91 Output Total 800 / 1085 1760 / 1760 675 / 675 Balance 5472.19 / 5228.99 2210.71 / 2268.52 1470.91 / 1470.91 Lab / Micro Data Attestation: I reviewed the patient's lab results. 03/02/23 09:30 03/04/23 03:48 Labs: Laboratory Results - last 24 hr 03/03/23 11:09: POC Glucose 154 H 03/03/23 17:13: POC Glucose 159 H 03/03/23 20:54: POC Glucose 158 H 03/03/23 23:47: POC Glucose 142 H 03/04/23 03:48: Sodium 139, Potassium 4.2, Chloride 109 H, Carbon Dioxide 26.0, Anion Gap 4 L, BUN 12, Creatinine 0.58 L, Estim Creat Clear Calc 160.48, Est GFR (MDRD) Af Amer 191, Est GFR (MDRD) Non-Af 158, BUN/Creatinine Ratio 20.8 H, Glucose 204 H, Calcium 8.4 L, Magnesium 2.0, Triglycerides 134 03/04/23 05:45: POC Glucose 232 H Micro: Microbiology 02/26/23 12:45 Sputum, Induced/Lukens Gram Stain - Final 02/26/23 12:45 Sputum, Induced/Lukens Respiratory Culture - Final Meth. resistant Staph. aureus 02/26/23 09:15 Nasal Secretion SARS-CoV-2 Antigen (Rapid) - Final Physical Exam Const Constitutional Narrative: RASS +1. Anasarca General Appearance: patient mechanically ventilated HEENT normocephalic and head/scalp atraumatic Mouth: endotracheal tube in place and OG tube in place Eyes PERRL and EOMs intact bilaterally Eyes Narrative: Slight scleral injection noted Neck supple General: trachea midline Chest inspection of chest normal Resp normal respiratory effort Auscultation: rales and diminished lung sounds; Negative for rhonchi or wheezes Cardio regular rate, regular rhythm, S1 normal heart sound, S2 normal heart sound, no murmurs, no rub and no gallops GI non-tender Inspection: abdominal distention Percussion: fluid wave Extremity Extremity Narrative: Right midfoot amputation noted. Left greater than right upper extremity edema General Extremity: amputation and edema; Negative for clubbing Skin no rashes or lesions noted Neuro moves all extremities and no focal motor deficits Psych Activity / Motor Behavior: restless Charges/Coding Procedures Hospitalists Procedures: 24511 Critial Care 1st Hr
--- NOTE | 2023-03-04 08:55 | PCM.PN.HOSP ---
Reason for Visit Reason for Visit: Diagnoses Type 2 diabetes mellitus with hyperglycemia (02/24/23) Other disorders of phosphorus metabolism (02/24/23) Hypomagnesemia (02/24/23) Hypokalemia (02/24/23) Alcohol use, unspecified with withdrawal, uncomplicated (02/24/23) Alcohol use, unspecified with withdrawal delirium (02/24/23) Metabolic encephalopathy (02/24/23) Cardiomyopathy, unspecified (02/24/23) Chronic atrial fibrillation, unspecified (02/24/23) Acute systolic (congestive) heart failure (02/24/23) Pneumonia due to Methicillin susceptible Staphylococcus aureus (02/24/23) Acute respiratory failure with hypoxia (02/24/23) Tachycardia, unspecified (02/24/23) Suicidal ideations (02/24/23) Laceration without foreign body of right upper arm, initial encounter (02/24/23) Unspecified foreign body in respiratory tract, part unspecified causing other injury, initial encounter (02/24/23) intermission coordinator (current) use of insulin (02/24/23) Objective Data Objective Data Vital Signs: Vital Signs Temp Pulse Resp BP Pulse Ox O2 Del Method O2 Flow Rate 101.9 F H 74 17 107/67 90 Mechanical Ventilator 50 03/04/23 07:00 03/04/23 07:22 03/04/23 07:22 03/04/23 07:00 03/04/23 07:22 03/04/23 07:00 02/26/23 12:00 FiO2 45 03/04/23 07:22 Oxygen Flow Rate (L/min) 50 Oxygen Delivery Method Mechanical Ventilator Weight: 257 lb 4.471 oz Body Mass Index (BMI) 36.0 Intake & Output: Intake and Output for Last 24 Hours 03/02/23 03/03/23 03/04/23 23:59 23:59 23:59 Intake Total 6272.19 / 6313.99 3970.71 / 4028.52 2145.91 / 2145.91 Output Total 800 / 1085 1760 / 1760 675 / 675 Balance 5472.19 / 5228.99 2210.71 / 2268.52 1470.91 / 1470.91 Lab / Micro Data 03/02/23 09:30 03/04/23 03:48 Labs: Laboratory Results - last 24 hr 03/03/23 11:09: POC Glucose 154 H 03/03/23 17:13: POC Glucose 159 H 03/03/23 20:54: POC Glucose 158 H 03/03/23 23:47: POC Glucose 142 H 03/04/23 03:48: Sodium 139, Potassium 4.2, Chloride 109 H, Carbon Dioxide 26.0, Anion Gap 4 L, BUN 12, Creatinine 0.58 L, Estim Creat Clear Calc 160.48, Est GFR (MDRD) Af Amer 191, Est GFR (MDRD) Non-Af 158, BUN/Creatinine Ratio 20.8 H, Glucose 204 H, Calcium 8.4 L, Magnesium 2.0, Triglycerides 134 03/04/23 05:45: POC Glucose 232 H Micro: Microbiology 02/26/23 12:45 Sputum, Induced/Lukens Gram Stain - Final 02/26/23 12:45 Sputum, Induced/Lukens Respiratory Culture - Final Meth. resistant Staph. aureus 02/26/23 09:15 Nasal Secretion SARS-CoV-2 Antigen (Rapid) - Final Physical Exam Narrative Seen and examined. Patient is sedated on IV propofol and fentanyl. Fever. Remains on vent support. OG tube. Patient is +20 L of fluid. 20 mg of IV Lasix given. General: Sedated. HEENT: Atraumatic, PERRLA, EOMI, Normocephalic Oral: ET and OG tube Neck: Supple, No JVD, Negative Carotid Bruits Lungs: Air entry diminished in bilateral lung bases. On vent support. No crepitation/rhonchi Cardiovascular: Sinus rhythm, Normal S1, Normal S2, No murmurs Abdomen: On OG tube feeding. Bowel Sounds sluggish, Soft, Non Tender, Non-Distended : Mattson catheter insertion on 02/26. Dark-colored urine. No renal angle tenderness. No suprapubic tenderness. Extremities: Mild dependent edema, Capillary Refill Less than 3 Seconds Skin: No rashes, No breakdown Musculoskeletal: No Tenderness to Palpation of Joints or Extremities Neurological: Sedated. Detailed neuro exam not obtainable no acute focal neurological deficit. Psych/Mental Status: Flat affect Assessment & Plan Assessment/Plan (1) Alcohol withdrawal: QUALIFIERS: Complication of substance-induced condition: uncomplicated Qualified Code(s): F10.930 - Alcohol use, unspecified with withdrawal, uncomplicated (2) Acute HFrEF (heart failure with reduced ejection fraction): (3) Metabolic encephalopathy: (4) Acute hypoxic respiratory failure: (5) Staphylococcus aureus pneumonia: PLAN: Plan 1. Acute hypoxic respiratory failure secondary to acute decompensated heart failure with reduced ejection fraction and MRSA pneumonia -Patient required intubation on 02/26/2023 -FiO2 has been reduced to 30% -On vent support. FiO2 35%. PEEP 5. -Volume overload appears to be compensated 03/02 : Tmax 101.2 Fahrenheit.-Sputum culture showing MRSA. ID consulted. Agree with IV vancomycin. -Critical care/pulmonary medicine following-appreciate input. Patient on paired awake and sedation protocol as per ICU protocol 03/03: Patient still has temperature Tmax 101.2 Fahrenheit. On IV antibiotic. The patient failed extubation trial. Remains intubated. Discussed with the melter helper. 03/04: Patient still has fever. 45% FiO2. 45% FiO2. +20 L of fluid. Lasix 20 mg IV given. Low blood pressure. DTs secondary to severe alcohol withdrawal with metabolic encephalopathy -Continue Precedex but wean as able -Patient has completed a phenobarb taper -Continue IV thiamine and folate -180 consultation is pending following extubation 03/04: Patient alcohol level was 425 on admission. Atrial fibrillation -Suspect related to alcohol toxicity -Remains in sinus rhythm and has had no issues with reverting back into A-fib -Continue metoprolol IV with intent to transition back to carvedilol after extubated -Patient is on therapeutic Lovenox--> chads 2 score is 2 03/02: Lasix changed to apixaban 03/03: Heart rate is controlled in the 70s. Sinus rhythm on youth nutritional monitor. Close/hypertension sinus rhythm. Hypokalemia -Resolved Nonischemic cardiomyopathy c -EF is 40% on echocardiogram with global LV dysfunction -Suspect related to alcohol use and or tachycardia mediated with A-fib -Recommend appropriate goal-directed optimal medical therapy with repeat echocardiogram in 6 to 8 weeks -Continue IV metoprolol with hold parameters -Hold lisinopril for now -Will need cardiology follow-up after discharge [id number] -Blood sugars were markedly elevated on presentation -Home compliance is questionable -Fasting blood sugar this morning is 240 -Increase Lantus to 42 from 36 units twice daily -Change SSI to high-dose -Hold Jardiance -Hold metformin while hospitalized -Continue to monitor sugars as ordered -Cardiac/carb controlled diet 03/03: A1c 10.9% glucose 205 in BMP. Glucose varies between 150-200. Insulin dose titrated up. Hypotension with history of hypertension. -Blood pressures are on the lower side right now due to the use of Precedex -Continue scheduled IV metoprolol with hold parameters -Hold lisinopril -Hold home HCTZ and amlodipine 03/03: Hypotension has resolved. Hyperlipidemia -Continue home atorvastatin GERD -Continue IV PPI History of CASE -Suspect patient noncompliant -Patient currently intubated Osteoarthritis -Hold home meloxicam -As needed Tylenol History of tobacco abuse -Quit in 2018 -Recommend ongoing cessation Obesity -BMI 32.2 -Recommend weight loss -Complicates treatment, prognosis, outcomes DVT/GI prophylaxis -Patient is on therapeutic Lovenox due to his development of A-fib -We will continue at this time with plans to transition to Eliquis -Protonix 40 mg daily IV push CODE STATUS Full code Charges/Coding Visit Charges Inpatient E&M: 35120 Subs Hosp L3
[2023-03-04] MEDS: Polyethylene Glycol 3350 17 GM PACKET GT ×2 (09:44→21:40)
[2023-03-04] MEDS: QUEtiapine 25 MG Tablet 50 MG PO ×2 (09:44→21:40)
[2023-03-04] MEDS: Fenofibrate 145 MG Tablet GT (09:44)
[2023-03-04] MEDS: Chlorhexidine 15 ML PO ×2 (09:44→20:52)
[2023-03-04] MEDS: APIXABAN 5 MG TABLET PO ×2 (09:44→21:40)
[2023-03-04] MEDS: Senna/Docusate Sodium 1 Tablet 2 TABLET GT ×2 (09:44→21:40)
[2023-03-04] MEDS: Vital High Protein 1,000 ML 55 ML GT (09:45)
[2023-03-04] MEDS: Pantoprazole Sodium 40 MG in 0.9% Normal Saline (100mL MB+) 100 ML 330 MG IV (09:51)
[2023-03-04] MEDS: Bisacodyl 10 MG Suppository RC (10:09)
[2023-03-04] MEDS: Propofol 10MG/Ml 1,000 MG/100 ML Bottle 17.5 MG CONT INF ×2 (10:20→16:41)
[2023-03-04 11:51] LABS: Bedside Glucose 178 mg/dL (74-106)
[2023-03-04] MEDS: Insulin Glargine-YFGN 100 UNIT/ML Pen 48 UNIT SC ×2 (12:35→23:14)
[2023-03-04 12:39] LABS: Vancomycin, Trough Level 23.7 ug/mL (5.0-15.0)
--- NOTE | 2023-03-04 13:23 | PCM.RX.CS ---
Consult Antibiotic Management Pharmacy has been consulted to manage selected antiobiotic: Vancomycin Type of Intervention Type of Consult: Follow-up Prior Doses of Antibiotics Prior Doses of Antibiotics Received/Current Regimen: current dose is vanc 1750mg IV q8h Labs Labs: Sodium 139 mmol/L (136-145) 03/04/23 03:48 Potassium 4.2 mmol/L (3.5-5.1) 03/04/23 03:48 Chloride 109 mmol/L (98-107) H 03/04/23 03:48 Carbon Dioxide 26.0 mmol/L (21.0-32.0) 03/04/23 03:48 Anion Gap 4 (5-15) L 03/04/23 03:48 BUN 12 mg/dL (7-18) 03/04/23 03:48 Creatinine 0.58 mg/dL (0.70-1.30) L 03/04/23 03:48 Est GFR (MDRD) Af Amer 191 mL/min (>60) 03/04/23 03:48 Est GFR (MDRD) Non-Af 158 mL/min (>60) 03/04/23 03:48 BUN/Creatinine Ratio 20.8 RATIO (10-20) H 03/04/23 03:48 Glucose 204 mg/dL (74-106) H 03/04/23 03:48 Vancomycin Trough 23.7 ug/mL (5.0-15.0) H 03/04/23 11:50 Microbiology Microbiology: Microbiology 03/02/23 11:00 Blood Culture (Wb) - Right Hand Blood Culture - Preliminary No growth in 48 hours. 03/02/23 10:54 Blood Culture (Wb) - Left Hand Blood Culture - Preliminary No growth in 48 hours. 02/26/23 12:45 Sputum, Induced/Lukens Gram Stain - Final 02/26/23 12:45 Sputum, Induced/Lukens Respiratory Culture - Final Meth. resistant Staph. aureus 02/26/23 09:15 Nasal Secretion SARS-CoV-2 Antigen (Rapid) - Final Dosing Weight Weight used for dosin lb 4.471 oz Estimated Creatinine Clearance Estimated Creatinine Clearance: >100ml/min Goal Trough Goal Trough: 15-20 mcg/mL Pharmacy Plan for Drug Dosing Pharmacy Plan for Drug Dosing: The vanc trough drawn at 11:50 today (approx 8 hours after the previous dose) was 23.7. This is now above goal range so will discontinue current dose. Will get a random level tonight and re-address from there. Pharmacy Service will continue to monitor and adjust dosing as required. Follow-Up Labs Follow-Up Labs: Trough: Vancomycin (random) Date/Time Labs Ordered Labs to be done on [date and time ordered]: 03/04/23 21:00
[2023-03-04] MEDS: dexMEDEtomidine 1,000 MCG in 0.9% Normal Saline (250mL Bag) 240 ML 43.8 MCG CONT INF ×2 (13:36→20:00)
--- NOTE | 2023-03-04 14:24 | PN.ID_ITS ---
ID ID: Route of nutrition/ use of supplements: [] Nutritional Intake: [] IV Site: [] Mattson Catheter: [] Patient remains on the ventilator via ET tube. FiO2 60%. No fevers. Remains on parenteral vancomycin. Also tolerating tube feeds. Laboratory studies revie wed as well as microbiology data. Assessment & Plan Assessment/Plan (1) Staphylococcus aureus pneumonia: PLAN: At this point we will continue parenteral vancomycin and continue supportive care.
[2023-03-04 18:02] LABS: Bedside Glucose 192 mg/dL (74-106)
--- NOTE | 2023-03-04 19:55 | NURSING ---
This RN updated patient's significant other, Carin, when she called in.
[2023-03-04 20:39] LABS: Vancomycin, Random Level 15.4 ug/mL (0.0-15.0)
[2023-03-04] MEDS: 0.9% Normal Saline (250mL Bag) 250 ML 15 ML IV (20:48)
[2023-03-04] MEDS: Propofol 10MG/Ml 1,000 MG/100 ML Bottle 21 MG CONT INF (20:49)
[2023-03-04] MEDS: Vancomycin HCl 750 MG in 0.9% Normal Saline (250mL Bag) 250 ML 250 MG IV (21:44)
[2023-03-04 22:08] LABS: Bedside Glucose 112 mg/dL (74-106)
--- NOTE | 2023-03-04 22:33 | PCM.RX.CS ---
Consult Antibiotic Management Pharmacy has been consulted to manage selected antiobiotic: Vancomycin Type of Intervention Type of Consult: Follow-up Suspected Infection Suspected Infection: Pneumonia Labs Labs: Sodium 139 mmol/L (136-145) 03/04/23 03:48 Potassium 4.2 mmol/L (3.5-5.1) 03/04/23 03:48 Chloride 109 mmol/L (98-107) H 03/04/23 03:48 Carbon Dioxide 26.0 mmol/L (21.0-32.0) 03/04/23 03:48 Anion Gap 4 (5-15) L 03/04/23 03:48 BUN 12 mg/dL (7-18) 03/04/23 03:48 Creatinine 0.58 mg/dL (0.70-1.30) L 03/04/23 03:48 Est GFR (MDRD) Af Amer 191 mL/min (>60) 03/04/23 03:48 Est GFR (MDRD) Non-Af 158 mL/min (>60) 03/04/23 03:48 BUN/Creatinine Ratio 20.8 RATIO (10-20) H 03/04/23 03:48 Glucose 204 mg/dL (74-106) H 03/04/23 03:48 Vancomycin Trough 23.7 ug/mL (5.0-15.0) H 03/04/23 11:50 Random Vancomycin 15.4 ug/mL (0.0-15.0) H 03/04/23 20:10 Microbiology Microbiology: Microbiology 03/02/23 11:00 Blood Culture (Wb) - Right Hand Blood Culture - Preliminary No growth in 48 hours. 03/02/23 10:54 Blood Culture (Wb) - Left Hand Blood Culture - Preliminary No growth in 48 hours. 02/26/23 12:45 Sputum, Induced/Lukens Gram Stain - Final 02/26/23 12:45 Sputum, Induced/Lukens Respiratory Culture - Final Meth. resistant Staph. aureus 02/26/23 09:15 Nasal Secretion SARS-CoV-2 Antigen (Rapid) - Final Dosing Weight Weight used for dosin.7 kg Estimated Creatinine Clearance Estimated Creatinine Clearance: >100 Goal Trough Goal Trough: 15-20 mcg/mL Pharmacy Plan for Drug Dosing Pharmacy Plan for Drug Dosing: Vancomycin random level, drawn 16.5hrs post-dose, was back to within range at 15.4. Per dosing calculator, a new dose of 750mg q8h should give an estimated trough of 17.1. This will be started now, and a trough level will be taken prior to 4th dose of the new regimen. Pharmacy Service will continue to monitor and adjust dosing as required. Follow-Up Labs Follow-Up Labs: Trough: Vancomycin Date/Time Labs Ordered Labs to be done on [date and time ordered]: 03/05/23 @2100
[2023-03-04 23:28] LABS: Bedside Glucose 106 mg/dL (74-106)
[2023-03-05] VITALS (36 sets, daily range): BP systolic 85–115; BP diastolic 54–91; PULSE 59–77; RESP 12–22; TEMP 36.4–37.8; O2SAT 86–100; BMI 34.9
[2023-03-05] MEDS: Metoprolol Tartrate 5 MG/5 ML Vial IV ×4 (00:35→16:40)
--- NOTE | 2023-03-05 00:40 | NURSING ---
EMAR states that fentanyl ended at 0035, however bag not fully empty. Fentanyl is still running.
[2023-03-05] MEDS: dexMEDEtomidine 1,000 MCG in 0.9% Normal Saline (250mL Bag) 240 ML 43.8 MCG CONT INF (01:43)
[2023-03-05] MEDS: Ipratropium/Albuterol Sulfate 3 ML AMPUL.NEB INHALATION ×4 (02:00→19:09)
[2023-03-05] MEDS: Propofol 10MG/Ml 1,000 MG/100 ML Bottle 17.5 MG CONT INF (02:03)
[2023-03-05] MEDS: fentaNYL drip 100 ML 10 MCG CONT INF ×2 (02:18→13:39)
[2023-03-05] MEDS: Vital High Protein 1,000 ML 55 ML GT ×2 (03:43→21:33)
[2023-03-05 05:06] LABS: Absolute Lymphocyte Count 1.68 X10^3/uL (0.83-4.51); Absolute Neutrophil Count 6.9 X10^3/uL (2.0-7.7); Basophil# 0.03 X10^3/uL; Basophil% 0.3 % (0-1); Eosinophil# 0.22 X10^3/uL; Eosinophils% 2.1 % (0-5); Hematocrit 36.3 % (40-54); Hemoglobin 11.8 g/dL (13.0-16.5); Lymphocyte # 1.68 X10^3/ul (0.83-4.51); Lymphocyte % 16.3 % (19-41); Mean Corp Hgb Conc 32.5 g/dL (32-36); Mean Corpuscular Hgb 30.2 pg (27.0-32.0); Mean Corpuscular Volume 92.8 fL (80-94); Mean Platelet Vol. 10.3 fl (6.2-12.0); Monocyte# 1.43 X10^3/uL; Monocyte% 13.8 % (0-10); NRBC Flagged by Analyzer 0 % (0-5); Neutrophil # 6.94 X10^3/uL (2.7-7.7); Neutrophil % 67.2 % (47-70); Platelet Count 528 K/mm3 (150-450); RBC Distribution Width CV 14.5 % (11.6-14.6); Red Blood Count 3.91 M/mm3 (4.6-6.2); White Blood Count 10.3 K/mm3 (4.4-11.0)
[2023-03-05 05:22] LABS: Anion Gap 5 (5-15); BUN 17 mg/dL (7-18); BUN/Creat Ratio 26.9 RATIO (10-20); Calcium,Total 8.5 mg/dL (8.5-10.1); Chloride 108 mmol/L (98-107); Creatinine, Serum 0.63 mg/dL (0.70-1.30); EST Glomerular Filtration Rate 141 mL/min (>60); Est Glom Filt Rate - Afr Amer 171 mL/min (>60); Estimated Creatinine Clearance 147.74 ml/min; Glucose 239 mg/dL (74-106); Potassium 3.4 mmol/L (3.5-5.1); Sodium Level 141 mmol/L (136-145)
[2023-03-05 05:36] LABS: Magnesium 1.8 mg/dL (1.6-2.6)
[2023-03-05] MEDS: Vancomycin HCl 750 MG in 0.9% Normal Saline (250mL Bag) 250 ML 250 MG IV ×2 (05:44→12:21)
[2023-03-05] MEDS: 0.9% Saline Lock 10 ML Syringe IV ×3 (05:44→21:33)
[2023-03-05] MEDS: Furosemide 20 MG/2 ML VIAL IV (05:50)
[2023-03-05] MEDS: Insulin Lispro 100 UNIT/ML INSULN.PEN SC ×2 (05:51→16:39)
[2023-03-05] MEDS: Potassium Chloride Oral Soln 20 MEQ/15 ML UDC 40 MEQ PO ×2 (06:06→16:35)
[2023-03-05 06:13] LABS: Bedside Glucose 175 mg/dL (74-106)
[2023-03-05] MEDS: Acetaminophen 650 MG/20 ML UDC GT (06:54)
[2023-03-05] MEDS: TITRATION PARAMETER CHANGE 1 EACH IV (06:54)
[2023-03-05] MEDS: Propofol 10MG/Ml 1,000 MG/100 ML Bottle 23.9 MG CONT INF ×2 (07:05→21:25)
[2023-03-05] MEDS: dexMEDEtomidine 1,000 MCG in 0.9% Normal Saline (250mL Bag) 240 ML 42.6 MCG CONT INF ×3 (07:05→19:24)
--- NOTE | 2023-03-05 07:10 | PN.CC_ITS ---
Assessment & Plan Assessment/Plan (1) Acute hypoxic respiratory failure: PLAN: Plan RECOMMENDATIONS: 1. Continue mechanical ventilation. Spontaneous breathing and awakening trials per protocol 2. Continue current sedation protocol. Possibly decrease Valium tomorrow 3. Continue tube feeds. Continue insulin sliding scale 4 Continue empiric antibiotics 5. Continue systemic anticoagulation with Eliquis 5. Increase diuresis IMPRESSIONS: 1. Acute hypoxemic respiratory failure The patient was initially intubated in the setting of worsening hypoxemia and profound agitation secondary to acute alcohol withdrawal. Patient significantly positive over the course of his hospitalization. Aggressive diuresis will be initiated. Continue with spontaneous breathing and awakening trials per protocol plan to continue supportive measures including assist- control mode of mechanical ventilation. FiO2 and PEEP will be weaned to maintain oxygen saturations at or above 90%. Anticipate patient will need to be diuresed 8 to 10 L before he is able to tolerate a spontaneous breathing trial. 2. Acute alcohol withdrawal The patient had severe DTs, despite phenobarbital taper. Plan to continue current sedation regimen. Patient did tolerate a decrease in Valium yesterday. Likely attempt to decrease to daily dosing tomorrow. Nutritional support via tube feeding can be continued from my perspective. The patient will need to be monitored closely for electrolyte abnormalities. 3. Cardiomyopathy/heart failure with reduced ejection fraction Continue current supportive measures along with diuretics as tolerated. Patient does remain anticoagulated with Eliquis therapy. 4. History of diabetes mellitus/obstructive sleep apnea/GERD/hyp ertension/tobacco dependency in remission/opioid induced obstipation Complicates care, management, recovery and prognosis. Continue home medications as indicated. Patient has not had a bowel movement in 5 days despite laxatives and MiraLAX. Will order a repeat suppository. Patient not showing signs of obstruction and tolerating tube feeds. TIME: 33 minutes of critical care time, independent of procedures, was spent addressing the patient's acute hypoxemic respiratory failure, acute alcohol withdrawal, review of all data and collaboration with the care team. Subjective Subjective Patient did okay overnight. No hemodynamic instability has been noted. Patient did have significant fever noted. Patient's oxygenation status did require an increase in PEEP to 8. Patient did have a Dulcolax suppository yesterday and some small bowel movements have been noted, but patient remains significantly distended. Patient was able to tolerate some of his spontaneous awakening trial, but cannot have a spontaneous breathing trial secondary to agitation. Patient did have his Valium decreased yesterday and nursing reported that he tolerated this well with only minimal increase in propofol. Objective Data Objective Data Vital Signs: Vital Signs Temp Pulse Resp BP Pulse Ox O2 Del Method O2 Flow Rate 37.6 C H 69 15 104/71 90 Mechanical Ventilator 50 03/05/23 06:00 03/05/23 06:00 03/05/23 06:00 03/05/23 06:00 03/05/23 06:00 03/05/23 06:00 02/26/23 12:00 FiO2 60 03/05/23 06:00 Oxygen Flow Rate (L/min) 50 Oxygen Delivery Method Mechanical Ventilator Weight: 113.7 kg Body Mass Index (BMI) 34.9 Intake & Output: Intake and Output for Last 24 Hours 03/03/23 03/04/23 03/05/23 23:59 23:59 23:59 Intake Total 3970.71 / 4028.52 3800.95 / 3909.13 1623.96 / 1623.96 Output Total 1760 / 1760 4725 / 5275 2155 / 2155 Balance 2210.71 / 2268.52 -924.05 / -1365.87 -531.04 / -531.04 Lab / Micro Data Attestation: I reviewed the patient's lab results. 03/05/23 04:56 03/05/23 04:56 Labs: Laboratory Results - last 24 hr 03/04/23 11:34: POC Glucose 178 H 03/04/23 11:50: Vancomycin Trough 23.7 H 03/04/23 17:36: POC Glucose 192 H 03/04/23 20:10: Random Vancomycin 15.4 H 03/04/23 21:43: POC Glucose 112 H 03/04/23 23:07: POC Glucose 106 03/05/23 04:56: WBC 10.3, RBC 3.91 L, Hgb 11.8 L, Hct 36.3 L, MCV 92.8, MCH 30.2, MCHC 32.5, RDW Std Deviation 49.0 H, RDW Coeff of Eliezer 14.5, Plt Count 528 H, MPV 10.3, Immature Gran % (Auto) 0.300, Neut % (Auto) 67.2, Lymph % (Auto) 16.3 L, [place] % (Auto) 13.8 H, Eos % (Auto) 2.1, Baso % (Auto) 0.3, Absolute Neuts (auto) 6.9, Absolute Lymphs (auto) 1.68, Nucleated RBC % 0, Sodium 141, Potassium 3.4 L, Chloride 108 H, Carbon Dioxide 28.0, Anion Gap 5, BUN 17, Creatinine 0.63 L, Estim Creat Clear Calc 147.74, Est GFR (MDRD) Af Amer 171, Est GFR (MDRD) Non-Af 141, BUN/Creatinine Ratio 26.9 H, Glucose 239 H, Calcium 8.5, Magnesium 1.8 03/05/23 05:49: POC Glucose 175 H Micro: Microbiology 03/02/23 11:00 Blood Culture (Wb) - Right Hand Blood Culture - Preliminary No growth in 48 hours. 03/02/23 10:54 Blood Culture (Wb) - Left Hand Blood Culture - Preliminary No growth in 48 hours. 02/26/23 12:45 Sputum, Induced/Lukens Gram Stain - Final 02/26/23 12:45 Sputum, Induced/Lukens Respiratory Culture - Final Meth. resistant Staph. aureus 02/26/23 09:15 Nasal Secretion SARS-CoV-2 Antigen (Rapid) - Final Physical Exam Const Constitutional Narrative: RASS -1. Anasarca General Appearance: patient mechanically ventilated HEENT normocephalic and head/scalp atraumatic Eyes PERRL and EOMs intact bilaterally Eyes Narrative: Slight scleral injection noted Neck supple General: trachea midline Chest inspection of chest normal Resp normal respiratory effort Auscultation: rales and diminished lung sounds; Negative for rhonchi or wheezes Cardio regular rate, regular rhythm, S1 normal heart sound, S2 normal heart sound, no murmurs, no rub and no gallops GI normal to inspection, nondistended, normoactive bowel sounds and non-tender Inspection: abdominal distention Percussion: fluid wave Extremity Extremity Narrative: Right midfoot amputation noted. Left greater than right upper extremity edema General Extremity: amputation and edema; Negative for clubbing Skin no rashes or lesions noted Neuro moves all extremities and no focal motor deficits Psych Mood & Affect: flat affect Charges/Coding Procedures Hospitalists Procedures: [id number] Critial Care 1st Hr
[2023-03-05] MEDS: Fenofibrate 145 MG Tablet GT (07:57)
[2023-03-05] MEDS: QUEtiapine 25 MG Tablet 50 MG PO ×2 (07:58→21:33)
[2023-03-05] MEDS: Polyethylene Glycol 3350 17 GM PACKET GT ×2 (07:58→21:32)
[2023-03-05] MEDS: diazePAM 5 MG Tablet 10 MG GT ×2 (07:58→21:37)
[2023-03-05] MEDS: Pantoprazole Sodium 40 MG in 0.9% Normal Saline (100mL MB+) 100 ML 330 MG IV (07:58)
[2023-03-05] MEDS: Chlorhexidine 15 ML PO ×2 (07:58→21:34)
[2023-03-05] MEDS: Senna/Docusate Sodium 1 Tablet 2 TABLET GT ×2 (07:58→21:33)
[2023-03-05] MEDS: APIXABAN 5 MG TABLET PO ×2 (07:59→21:33)
[2023-03-05] MEDS: Insulin Glargine-YFGN 100 UNIT/ML Pen 48 UNIT SC ×2 (07:59→23:00)
[2023-03-05] MEDS: Bisacodyl 10 MG Suppository RC (07:59)
[2023-03-05] MEDS: CHLORHEXIDINE GLUC 2% CLOTH 1 EACH TOWELETTE TOPICAL (08:04)
--- NOTE | 2023-03-05 08:14 | CPS ---
Rn called this RT. RN stated pt was desatting. She 100% pt multiple times and tried suctioning. This RT talked to Dr Ross, Dr Ross said to increase peep to 10. Will continue to check on pt
--- NOTE | 2023-03-05 08:35 | PN.HOSP_ITS ---
Reason for Visit Reason for Visit: Diagnoses Type 2 diabetes mellitus with hyperglycemia (02/24/23) Other disorders of phosphorus metabolism (02/24/23) Hypomagnesemia (02/24/23) Hypokalemia (02/24/23) Alcohol use, unspecified with withdrawal, uncomplicated (02/24/23) Alcohol use, unspecified with withdrawal delirium (02/24/23) Metabolic encephalopathy (02/24/23) Cardiomyopathy, unspecified (02/24/23) Chronic atrial fibrillation, unspecified (02/24/23) Acute systolic (congestive) heart failure (02/24/23) Pneumonia due to Methicillin susceptible Staphylococcus aureus (02/24/23) Acute respiratory failure with hypoxia (02/24/23) Tachycardia, unspecified (02/24/23) Suicidal ideations (02/24/23) Laceration without foreign body of right upper arm, initial encounter (02/24/23) Unspecified foreign body in respiratory tract, part unspecified causing other injury, initial encounter (02/24/23) supervisor intermediates (current) use of insulin (02/24/23) Objective Data Objective Data Vital Signs: Vital Signs Temp Pulse Resp BP Pulse Ox O2 Del Method O2 Flow Rate 100.1 F H 72 16 111/80 92 Mechanical Ventilator 50 03/05/23 07:00 03/05/23 07:00 03/05/23 07:00 03/05/23 07:00 03/05/23 07:00 03/05/23 07:00 02/26/23 12:00 FiO2 100 03/05/23 08:14 Oxygen Flow Rate (L/min) 50 Oxygen Delivery Method Mechanical Ventilator Weight: 250 lb 10.649 oz Body Mass Index (BMI) 34.9 Intake & Output: Intake and Output for Last 24 Hours 03/03/23 03/04/23 03/05/23 23:59 23:59 23:59 Intake Total 3970.71 / 4028.52 3800.95 / 3909.13 1959.21 / 1958.21 Output Total 1760 / 1760 4725 / 5275 3055 / 3055 Balance 2210.71 / 2268.52 -924.05 / -1365.87 -1095.79 / -1095.79 Lab / Micro Data 03/05/23 04:56 03/05/23 04:56 Labs: Laboratory Results - last 24 hr 03/04/23 11:34: POC Glucose 178 H 03/04/23 11:50: Vancomycin Trough 23.7 H 03/04/23 17:36: POC Glucose 192 H 03/04/23 20:10: Random Vancomycin 15.4 H 03/04/23 21:43: POC Glucose 112 H 03/04/23 23:07: POC Glucose 106 03/05/23 04:56: WBC 10.3, RBC 3.91 L, Hgb 11.8 L, Hct 36.3 L, MCV 92.8, MCH 30.2, MCHC 32.5, RDW Std Deviation 49.0 H, RDW Coeff of Eliezer 14.5, Plt Count 528 H, MPV 10.3, Immature Gran % (Auto) 0.300, Neut % (Auto) 67.2, Lymph % (Auto) 16.3 L, [place] % (Auto) 13.8 H, Eos % (Auto) 2.1, Baso % (Auto) 0.3, Absolute Neuts (auto) 6.9, Absolute Lymphs (auto) 1.68, Nucleated RBC % 0, Sodium 141, Potassium 3.4 L, Chloride 108 H, Carbon Dioxide 28.0, Anion Gap 5, BUN 17, Creatinine 0.63 L, Estim Creat Clear Calc 147.74, Est GFR (MDRD) Af Amer 171, Est GFR (MDRD) Non-Af 141, BUN/Creatinine Ratio 26.9 H, Glucose 239 H, Calcium 8.5, Magnesium 1.8 03/05/23 05:49: POC Glucose 175 H Micro: Microbiology 03/02/23 11:00 Blood Culture (Wb) - Right Hand Blood Culture - Preliminary No growth in 48 hours. 03/02/23 10:54 Blood Culture (Wb) - Left Hand Blood Culture - Preliminary No growth in 48 hours. 02/26/23 12:45 Sputum, Induced/Lukens Gram Stain - Final 02/26/23 12:45 Sputum, Induced/Lukens Respiratory Culture - Final Meth. resistant Staph. aureus 02/26/23 09:15 Nasal Secretion SARS-CoV-2 Antigen (Rapid) - Final Physical Exam Narrative Seen and examined. Patient is sedated on IV propofol and fentanyl and Precedex drip. Low-grade fever. Remains on vent support. OG tube. Patient is +20 L of fluid. 20 mg of IV Lasix given. General: Sedated. HEENT: Atraumatic, PERRLA, EOMI, Normocephalic Oral: ET and OG tube Neck: Supple, No JVD, Negative Carotid Bruits Lungs: Air entry diminished in bilateral lung bases. Has secretions on vent support. Mild coarse crepitations Cardiovascular: Sinus rhythm, Normal S1, Normal S2, No murmurs Abdomen: On OG tube feeding. Bowel Sounds sluggish, Soft, Non Tender, Non- Distended : Mattson catheter insertion on 02/26. Dark-colored urine. No renal angle tenderness. No suprapubic tenderness. Extremities: Mild dependent edema of lower extremities and upper extremities, Capillary Refill Less than 3 Seconds Skin: No rashes, No breakdown Musculoskeletal: No Tenderness to Palpation of Joints or Extremities Neurological: Sedated. Detailed neuro exam not obtainable no acute focal neurological deficit. Psych/Mental Status: Flat affect Assessment & Plan Assessment/Plan (1) Alcohol withdrawal: QUALIFIERS: Complication of substance-induced condition: uncomplicated Qualified Code(s): F10.930 - Alcohol use, unspecified with withdrawal, uncomplicated (2) Acute HFrEF (heart failure with reduced ejection fraction): (3) Metabolic encephalopathy: (4) Acute hypoxic respiratory failure: (5) Staphylococcus aureus pneumonia: PLAN: Plan 1. Acute hypoxic respiratory failure secondary to acute decompensated heart failure with reduced ejection fraction and MRSA pneumonia -Patient required intubation on 02/26/2023 -FiO2 has been reduced to 30% -On vent support. FiO2 35%. PEEP 5. -Volume overload appears to be compensated 03/02 : Tmax 101.2 Fahrenheit.-Sputum culture showing MRSA. ID consulted. Agree with IV vancomycin. -Critical care/pulmonary medicine following-appreciate input. Patient on paired awake and sedation protocol as per ICU protocol 03/03: Patient still has temperature Tmax 101.2 Fahrenheit. On IV antibiotic. The patient failed extubation trial. Remains intubated. Discussed with the benefit authorizer. 03/04: Patient still has fever. 45% FiO2. 45% FiO2. +20 L of fluid. Lasix 20 mg IV given. Low blood pressure. 03/05: Patient is +18 L of fluid. On diuresis. Low-grade fever.May be from Precedex. DTs secondary to severe alcohol withdrawal with metabolic encephalopathy -Continue Precedex but wean as able -Patient has completed a phenobarb taper -Continue IV thiamine and folate -180 consultation is pending following extubation 03/04: Patient alcohol level was 425 on admission. Atrial fibrillation -Suspect related to alcohol toxicity -Remains in sinus rhythm and has had no issues with reverting back into A-fib -Continue metoprolol IV with intent to transition back to carvedilol after extubated -Patient is on therapeutic Lovenox--> chads 2 score is 2 03/02: Lasix changed to apixaban 03/03: Heart rate is controlled in the 70s. Sinus rhythm on registered nurse cardiac. Close/hypertension sinus rhythm. Hypokalemia -Resolved Nonischemic cardiomyopathy -EF is 40% on echocardiogram with global LV dysfunction -Suspect related to alcohol use and or tachycardia mediated with A-fib -Recommend appropriate goal-directed optimal medical therapy with repeat echocardiogram in 6 to 8 weeks -Continue IV metoprolol with hold parameters -Hold lisinopril for now -Will need cardiology follow-up after discharge [id number] -Blood sugars were markedly elevated on presentation -Home compliance is questionable -Fasting blood sugar this morning is 240 -Increase Lantus to 42 from 36 units twice daily -Change SSI to high-dose -Hold Jardiance -Hold metformin while hospitalized -Continue to monitor sugars as ordered -Cardiac/carb controlled diet 03/03: A1c 10.9% glucose 205 in BMP. Glucose varies between 150-200. Insulin dose titrated up. Hypotension with history of hypertension. -Blood pressures are on the lower side right now due to the use of Precedex -Continue scheduled IV metoprolol with hold parameters -Hold lisinopril -Hold home HCTZ and amlodipine 03/03: Hypotension has resolved. Hyperlipidemia -Continue home atorvastatin GERD -Continue IV PPI History of CASE -Suspect patient noncompliant -Patient currently intubated Osteoarthritis -Hold home meloxicam -As needed Tylenol History of tobacco abuse -Quit in 2018 -Recommend ongoing cessation Obesity -BMI 32.2 -Recommend weight loss -Complicates treatment, prognosis, outcomes DVT/GI prophylaxis -Patient is on therapeutic Lovenox due to his development of A-fib -We will continue at this time with plans to transition to Eliquis -Protonix 40 mg daily IV push CODE STATUS Full code Clinical Impression(s) from Imaging Studies Brain CT 02/23/23 20:31 IMPRESSION: Normal unenhanced CT scan of the brain. Echocardiogram 02/24/23 02:38 Interpretation Summary Normal LV size. The estimated ejection fraction is 40 %. There is mild global hypokinesis of the left ventricle. Mild concentric left ventricular hypertrophy. Pulmonary artery systolic pressure is 44 mmHg. Contrast injection was performed. Chest X-Ray 02/26/23 12:55 IMPRESSION: 1. Satisfactory placement of ET tube. 2. OG tube courses down towards the abdomen but exact location is uncertain since the abdomen is not included. 3. Suspicious interstitial pneumonitis in both lungs without obvious significant change. Chest X-Ray 03/02/23 10:50 IMPRESSION: Support tubes are in good position. Improvement in the vascular congestion with bibasilar atelectasis and/or infiltrates worse on the left side. Charges/Coding Visit Charges Inpatient E&M: 77690 Subs Hosp L3
[2023-03-05 09:34] LABS: Triglycerides 161 mg/dL
[2023-03-05 09:48] LABS: CPK Total, Creatine Kinase 137 U/L (39-308)
[2023-03-05] MEDS: Propofol 10MG/Ml 1,000 MG/100 ML Bottle 20.5 MG CONT INF (11:30)
[2023-03-05 11:54] LABS: Bedside Glucose 147 mg/dL (74-106)
[2023-03-05] MEDS: Furosemide 40 MG/4 ML Vial IV ×2 (13:33→21:37)
[2023-03-05] MEDS: Propofol 10MG/Ml 1,000 MG/100 ML Bottle 13.6 MG CONT INF (16:53)
[2023-03-05 16:59] LABS: Bedside Glucose 166 mg/dL (74-106)
[2023-03-05] MEDS: Vancomycin Trough/Random Due 1 LAB MC (21:38)
[2023-03-05 21:50] LABS: Vancomycin, Trough Level 9.8 ug/mL (5.0-15.0)
[2023-03-05] MEDS: Vancomycin HCl 1,250 MG in 0.9% Normal Saline (250mL Bag) 250 ML 167 MG IV (22:21)
--- NOTE | 2023-03-05 23:07 | PCM.RX.CS ---
Consult Antibiotic Management Pharmacy has been consulted to manage selected antiobiotic: Vancomycin Type of Intervention Type of Consult: Follow-up Suspected Infection Suspected Infection: Pneumonia Labs Labs: Sodium 141 mmol/L (136-145) 03/05/23 04:56 Potassium 3.4 mmol/L (3.5-5.1) L 03/05/23 04:56 Chloride 108 mmol/L (98-107) H 03/05/23 04:56 Carbon Dioxide 28.0 mmol/L (21.0-32.0) 03/05/23 04:56 Anion Gap 5 (5-15) 03/05/23 04:56 BUN 17 mg/dL (7-18) 03/05/23 04:56 Creatinine 0.63 mg/dL (0.70-1.30) L 03/05/23 04:56 Est GFR (MDRD) Af Amer 171 mL/min (>60) 03/05/23 04:56 Est GFR (MDRD) Non-Af 141 mL/min (>60) 03/05/23 04:56 BUN/Creatinine Ratio 26.9 RATIO (10-20) H 03/05/23 04:56 Glucose 239 mg/dL (74-106) H 03/05/23 04:56 Vancomycin Trough 9.8 ug/mL (5.0-15.0) 03/05/23 21:05 Random Vancomycin 15.4 ug/mL (0.0-15.0) H 03/04/23 20:10 Microbiology Microbiology: Microbiology 03/02/23 11:00 Blood Culture (Wb) - Right Hand Blood Culture - Preliminary No growth in 48 hours. 03/02/23 10:54 Blood Culture (Wb) - Left Hand Blood Culture - Preliminary No growth in 48 hours. 02/26/23 12:45 Sputum, Induced/Lukens Gram Stain - Final 02/26/23 12:45 Sputum, Induced/Lukens Respiratory Culture - Final Meth. resistant Staph. aureus 02/26/23 09:15 Nasal Secretion SARS-CoV-2 Antigen (Rapid) - Final Dosing Weight Weight used for dosin.7 kg Estimated Creatinine Clearance Estimated Creatinine Clearance: >100 Goal Trough Goal Trough: 15-20 mcg/mL Pharmacy Plan for Drug Dosing Pharmacy Plan for Drug Dosing: Vancomycin trough level of 9.8, drawn 8.5hrs post-dose, was now below the target range of 15-20. Will increase dose to 1250mg q8h, which should give an estimated trough of 18.2. Will re-draw a level prior to fourth dose of the new regimen. Pharmacy Service will continue to monitor and adjust dosing as required. Follow-Up Labs Follow-Up Labs: Trough: Vancomycin Date/Time Labs Ordered Labs to be done on [date and time ordered]: 03/06/23 @2200
[2023-03-06] VITALS (37 sets, daily range): BP systolic 85–114; BP diastolic 62–87; PULSE 58–79; RESP 12–24; TEMP 36.5–37.4; O2SAT 89–96; BMI 34.7
[2023-03-06] MEDS: fentaNYL drip 100 ML 10 MCG CONT INF ×3 (00:29→19:30)
[2023-03-06] MEDS: Metoprolol Tartrate 5 MG/5 ML Vial IV ×4 (00:44→16:51)
[2023-03-06] MEDS: dexMEDEtomidine 1,000 MCG in 0.9% Normal Saline (250mL Bag) 240 ML 42.6 MCG CONT INF (00:45)
[2023-03-06 01:07] LABS: Bedside Glucose 108 mg/dL (74-106)
[2023-03-06] MEDS: Propofol 10MG/Ml 1,000 MG/100 ML Bottle 23.9 MG CONT INF (01:37)
[2023-03-06] MEDS: Ipratropium/Albuterol Sulfate 3 ML AMPUL.NEB INHALATION ×4 (01:47→19:02)
[2023-03-06 03:48] LABS: Absolute Lymphocyte Count 1.77 X10^3/uL (0.83-4.51); Absolute Neutrophil Count 5.1 X10^3/uL (2.0-7.7); Basophil# 0.08 X10^3/uL; Basophil% 0.9 % (0-1); Eosinophil# 0.28 X10^3/uL; Eosinophils% 3.3 % (0-5); Hematocrit 36.5 % (40-54); Hemoglobin 11.8 g/dL (13.0-16.5); Lymphocyte # 1.77 X10^3/ul (0.83-4.51); Mean Corp Hgb Conc 32.3 g/dL (32-36); Mean Corpuscular Hgb 29.6 pg (27.0-32.0); Mean Corpuscular Volume 91.5 fL (80-94); Monocyte# 1.15 X10^3/uL; Monocyte% 13.6 % (0-10); NRBC Flagged by Analyzer 0 % (0-5); Neutrophil # 5.11 X10^3/uL (2.7-7.7); Neutrophil % 60.6 % (47-70); Platelet Count 645 K/mm3 (150-450); RBC Distribution Width CV 14.3 % (11.6-14.6); Red Blood Count 3.99 M/mm3 (4.6-6.2); White Blood Count 8.4 K/mm3 (4.4-11.0)
[2023-03-06 03:58] LABS: Anion Gap 5 (5-15); BUN 16 mg/dL (7-18); BUN/Creat Ratio 27.7 RATIO (10-20); Calcium,Total 8.9 mg/dL (8.5-10.1); Chloride 106 mmol/L (98-107); Creatinine, Serum 0.58 mg/dL (0.70-1.30); EST Glomerular Filtration Rate 157 mL/min (>60); Est Glom Filt Rate - Afr Amer 190 mL/min (>60); Estimated Creatinine Clearance 160.48 ml/min; Glucose 121 mg/dL (74-106); Potassium 3.5 mmol/L (3.5-5.1); Sodium Level 142 mmol/L (136-145)
[2023-03-06] MEDS: 0.9% Saline Lock 10 ML Syringe IV (05:21)
[2023-03-06] MEDS: Furosemide 40 MG/4 ML Vial IV ×3 (05:22→22:21)
[2023-03-06] MEDS: Vancomycin HCl 1,250 MG in 0.9% Normal Saline (250mL Bag) 250 ML 167 MG IV ×2 (05:30→13:55)
[2023-03-06] MEDS: CHLORHEXIDINE GLUC 2% CLOTH 1 EACH TOWELETTE TOPICAL (05:35)
[2023-03-06] MEDS: Propofol 10MG/Ml 1,000 MG/100 ML Bottle 17.1 MG CONT INF (05:54)
[2023-03-06] MEDS: TITRATION PARAMETER CHANGE 1 EACH IV (06:05)
[2023-03-06] MEDS: dexMEDEtomidine 1,000 MCG in 0.9% Normal Saline (250mL Bag) 240 ML 42.2 MCG CONT INF ×3 (06:34→19:30)
--- NOTE | 2023-03-06 07:01 | PN.CC_ITS ---
Assessment & Plan Assessment/Plan (1) Acute hypoxic respiratory failure: PLAN: Plan RECOMMENDATIONS: 1. Continue mechanical ventilation. Spontaneous breathing and awakening trials per protocol 2. Continue current sedation protocol. Decrease Valium to daily 3. Continue tube feeds. Continue insulin sliding scale 4 Continue empiric antibiotics to complete a 10-day course 5. Continue systemic anticoagulation with Eliquis 5. Continue diuresis with potassium supplementation IMPRESSIONS: 1. Acute hypoxemic respiratory failure The patient was initially intubated in the setting of worsening hypoxemia and profound agitation secondary to acute alcohol withdrawal. Patient significantly positive over the course of his hospitalization. Aggressive diuresis has been initiated. Continue with spontaneous breathing and awakening trials per protocol plan to continue supportive measures including assist- control mode of mechanical ventilation. FiO2 and PEEP will be weaned to maintain oxygen saturations at or above 90%. Anticipate patient will need to be diuresed 6-8 L before he is able to tolerate a spontaneous breathing trial. 2. Acute alcohol withdrawal The patient had severe DTs, despite phenobarbital taper. Plan to continue current sedation regimen. Patient did tolerate a decrease in Valium on Tuesday. Will decreased Valium to daily today. Nutritional support via tube feeding can be continued from my perspective. The patient will need to be monitored closely for electrolyte abnormalities. 3. Cardiomyopathy/heart failure with reduced ejection fraction Continue current supportive measures along with diuretics as tolerated. Patient does remain anticoagulated with Eliquis therapy. 4. History of diabetes mellitus/obstructive sleep apnea/GERD/hypertension/tobacco dependency in remission/opioid induced obstipation Complicates care, management, recovery and prognosis. Continue home medications as indicated. Patient has had a significant bowel movement today with improvement in fevers. Patient has received significant laxatives, so will not test for C. difficile despite liquid stool. Patient not showing signs of obstruction and tolerating tube feeds. TIME: 35 minutes of critical care time, independent of procedures, was spent addressing the patient's acute hypoxemic respiratory failure, acute alcohol withdrawal, review of all data and collaboration with the care team. Subjective Subjective Patient did okay overnight. Patient did have a large bowel movement this morn ing requiring frequent change in bed position. Patient did have an increase in oxygen demands with this manipulation. Patient did not have a spontaneous awakening and breathing trial this morning secondary to FiO2 requirements. Objective Data Objective Data Vital Signs: Vital Signs Temp Pulse Resp BP Pulse Ox O2 Del Method O2 Flow Rate 37.0 C 67 23 H 88/62 L 90 Mechanical Ventilator 50 03/06/23 06:00 03/06/23 06:00 03/06/23 06:00 03/06/23 06:00 03/06/23 06:00 03/06/23 06:00 02/26/23 12:00 FiO2 100 03/06/23 06:00 Oxygen Flow Rate (L/min) 50 Oxygen Delivery Method Mechanical Ventilator Weight: 112.6 kg Body Mass Index (BMI) 34.7 Intake & Output: Intake and Output for Last 24 Hours 03/04/23 03/05/23 03/06/23 23:59 23:59 23:59 Intake Total 3800.95 / 3909.13 4789.97 / 4866.47 1270.34 / 1270.34 Output Total 4725 / 5275 5255 / 8155 3500 / 3500 Balance -924.05 / -1365.87 -465.03 / -3288.53 -2229.66 / -2229.66 Lab / Micro Data Attestation: I reviewed the patient's lab results. 03/06/23 03:35 03/06/23 03:35 Labs: Laboratory Results - last 24 hr 03/05/23 04:56: Total Creatine Kinase 137, Triglycerides 161 03/05/23 11:29: POC Glucose 147 H 03/05/23 16:39: POC Glucose 166 H 03/05/23 21:05: Vancomycin Trough 9.8 03/06/23 00:39: POC Glucose 108 H 03/06/23 03:35: WBC 8.4, RBC 3.99 L, Hgb 11.8 L, Hct 36.5 L, MCV 91.5, MCH 29.6, MCHC 32.3, RDW Std Deviation 48.0 H, RDW Coeff of Eliezer 14.3, Plt Count 645 H, MPV 10.0, Immature Gran % (Auto) 0.600, Neut % (Auto) 60.6, Lymph % (Auto) 21.0, [place] % (Auto) 13.6 H, Eos % (Auto) 3.3, Baso % (Auto) 0.9, Absolute Neuts (auto) 5.1, Absolute Lymphs (auto) 1.77, Nucleated RBC % 0, Sodium 142, Potassium 3.5, Chloride 106, Carbon Dioxide 31.0, Anion Gap 5, BUN 16, Creatinine 0.58 L, Estim Creat Clear Calc 160.48, Est GFR (MDRD) Af Amer 190, Est GFR (MDRD) Non-Af 157, BUN/Creatinine Ratio 27.7 H, Glucose 121 H, Calcium 8.9 Micro: Microbiology 03/02/23 11:00 Blood Culture (Wb) - Right Hand Blood Culture - Preliminary No growth in 48 hours. 03/02/23 10:54 Blood Culture (Wb) - Left Hand Blood Culture - Preliminary No growth in 48 hours. 02/26/23 12:45 Sputum, Induced/Lukens Gram Stain - Final 02/26/23 12:45 Sputum, Induced/Lukens Respiratory Culture - Final Meth. resistant Staph. aureus 02/26/23 09:15 Nasal Secretion SARS-CoV-2 Antigen (Rapid) - Final Physical Exam Const Constitutional Narrative: RASS -1. Anasarca improving General Appearance: patient mechanically ventilated HEENT normocephalic and head/scalp atraumatic Eyes PERRL and EOMs intact bilaterally Eyes Narrative: Slight scleral injection noted Neck supple General: trachea midline Chest inspection of chest normal Resp normal respiratory effort Auscultation: rales and diminished lung sounds; Negative for rhonchi or wheezes Cardio regular rate, regular rhythm, S1 normal heart sound, S2 normal heart sound, no murmurs, no rub and no gallops GI normal to inspection, nondistended, normoactive bowel sounds and non-tender GI Narrative: Abdominal distention much improved after bowel movement Percussion: fluid wave Extremity Extremity Narrative: Right midfoot amputation noted. Left greater than right upper extremity edema General Extremity: amputation and edema; Negative for clubbing Skin no rashes or lesions noted Neuro moves all extremities and no focal motor deficits Psych Activity / Motor Behavior: restless Mood & Affect: flat affect Charges/Coding Procedures Hospitalists Procedures: 52253 Critial Care 1st Hr
[2023-03-06] MEDS: Senna/Docusate Sodium 1 Tablet 2 TABLET GT ×2 (07:31→22:21)
[2023-03-06] MEDS: Potassium Chloride Oral Soln 20 MEQ/15 ML UDC 40 MEQ GT (07:31)
[2023-03-06] MEDS: Potassium Chloride Oral Soln 20 MEQ/15 ML UDC 40 MEQ PO ×2 (07:31→15:41)
[2023-03-06] MEDS: Chlorhexidine 15 ML PO ×2 (07:32→22:22)
[2023-03-06] MEDS: Insulin Glargine-YFGN 100 UNIT/ML Pen 48 UNIT SC ×2 (07:32→23:22)
[2023-03-06] MEDS: APIXABAN 5 MG TABLET PO ×2 (07:32→22:21)
[2023-03-06] MEDS: QUEtiapine 25 MG Tablet 50 MG PO ×2 (07:33→22:21)
[2023-03-06] MEDS: Fenofibrate 145 MG Tablet GT (07:33)
[2023-03-06] MEDS: Pantoprazole Sodium 40 MG in 0.9% Normal Saline (100mL MB+) 100 ML 330 MG IV (07:41)
[2023-03-06] MEDS: diazePAM 5 MG Tablet 10 MG GT (09:48)
--- NOTE | 2023-03-06 10:00 | PCM.PN.HOSP ---
Reason for Visit Reason for Visit: Diagnoses Type 2 diabetes mellitus with hyperglycemia (02/24/23) Other disorders of phosphorus metabolism (02/24/23) Hypomagnesemia (02/24/23) Hypokalemia (02/24/23) Alcohol use, unspecified with withdrawal, uncomplicated (02/24/23) Alcohol use, unspecified with withdrawal delirium (02/24/23) Metabolic encephalopathy (02/24/23) Cardiomyopathy, unspecified (02/24/23) Chronic atrial fibrillation, unspecified (02/24/23) Acute systolic (congestive) heart failure (02/24/23) Pneumonia due to Methicillin susceptible Staphylococcus aureus (02/24/23) Acute respiratory failure with hypoxia (02/24/23) Tachycardia, unspecified (02/24/23) Suicidal ideations (02/24/23) Laceration without foreign body of right upper arm, initial encounter (02/24/23) Unspecified foreign body in respiratory tract, part unspecified causing other injury, initial encounter (02/24/23) 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 Objective Data Objective Data Vital Signs: Vital Signs Temp Pulse Resp BP Pulse Ox O2 Del Method O2 Flow Rate 99.2 F H 71 18 109/76 95 Mechanical Ventilator 50 03/06/23 09:00 03/06/23 09:16 03/06/23 09:16 03/06/23 09:00 03/06/23 09:16 03/06/23 09:00 02/26/23 12:00 FiO2 80 03/06/23 09:16 Oxygen Flow Rate (L/min) 50 Oxygen Delivery Method Mechanical Ventilator Weight: 248 lb 3.848 oz Body Mass Index (BMI) 34.7 Intake & Output: Intake and Output for Last 24 Hours 03/04/23 03/05/23 03/06/23 23:59 23:59 23:59 Intake Total 3800.95 / 3909.13 4789.97 / 4866.47 Output Total 9336 / 5275 5255 / 8121 4550 / 4550 Balance -924.05 / -1365.87 -465.03 / -3288.53 -2614.77 / -2614.77 Lab / Micro Data 03/06/23 03:35 03/06/23 03:35 Labs: Laboratory Results - last 24 hr 03/05/23 11:29: POC Glucose 147 H 03/05/23 16:39: POC Glucose 166 H 03/05/23 21:05: Vancomycin Trough 9.8 03/06/23 00:39: POC Glucose 108 H 03/06/23 03:35: WBC 8.4, RBC 3.99 L, Hgb 11.8 L, Hct 36.5 L, MCV 91.5, MCH 29.6, MCHC 32.3, RDW Std Deviation 48.0 H, RDW Coeff of Eliezer 14.3, Plt Count 645 H, MPV 10.0, Immature Gran % (Auto) 0.600, Neut % (Auto) 60.6, Lymph % (Auto) 21.0, Cobb % (Auto) 13.6 H, Eos % (Auto) 3.3, Baso % (Auto) 0.9, Absolute Neuts (auto) 5.1, Absolute Lymphs (auto) 1.77, Nucleated RBC % 0, Sodium 142, Potassium 3.5, Chloride 106, Carbon Dioxide 31.0, Anion Gap 5, BUN 16, Creatinine 0.58 L, Estim Creat Clear Calc 160.48, Est GFR (MDRD) Af Amer 190, Est GFR (MDRD) Non-Af 157, BUN/Creatinine Ratio 27.7 H, Glucose 121 H, Calcium 8.9 Micro: Microbiology 03/02/23 11:00 Blood Culture (Wb) - Right Hand Blood Culture - Preliminary No growth in 48 hours. 03/02/23 10:54 Blood Culture (Wb) - Left Hand Blood Culture - Preliminary No growth in 48 hours. 02/26/23 12:45 Sputum, Induced/Lukens Gram Stain - Final 02/26/23 12:45 Sputum, Induced/Lukens Respiratory Culture - Final Meth. resistant Staph. aureus 02/26/23 09:15 Nasal Secretion SARS-CoV-2 Antigen (Rapid) - Final Physical Exam Narrative Seen and examined. Patient is sedated on IV propofol and fentanyl and Precedex drip. Patient had respiratory distress and hypoxic therefore overnight FiO2 increased to 100%, PEEP 10 but in the morning decreased to 50% FiO2. No fever in last 24 hours. Remains on vent support. OG tube. Positive fluid balance. On IV diuretic. Physical exam General: Sedated. HEENT: Atraumatic, PERRLA, EOMI, Normocephalic Oral: ET and OG tube Neck: Supple, No JVD, Negative Carotid Bruits Lungs: Air entry diminished in bilateral lung bases. Has secretions on vent support. Mild coarse crepitations Cardiovascular: Sinus rhythm, Normal S1, Normal S2, No murmurs Abdomen: On OG tube feeding. Bowel Sounds sluggish, Soft, Non Tender, Non-Distended : Mattson catheter insertion on 02/26. Dark-colored urine. No renal angle tenderness. No suprapubic tenderness. Extremities: Mild dependent edema of lower extremities and upper extremities, Capillary Refill Less than 3 Seconds Skin: No rashes, No breakdown Musculoskeletal: No Tenderness to Palpation of Joints or Extremities Neurological: Sedated. Detailed neuro exam not obtainable. No acute focal neurological deficit. Psych/Mental Status: Flat affect Assessment & Plan Assessment/Plan (1) Alcohol withdrawal: QUALIFIERS: Complication of substance-induced condition: uncomplicated Qualified Code(s): F10.930 - Alcohol use, unspecified with withdrawal, uncomplicated (2) Acute HFrEF (heart failure with reduced ejection fraction): (3) Metabolic encephalopathy: (4) Acute hypoxic respiratory failure: (5) Staphylococcus aureus pneumonia: PLAN: Plan 1. Acute hypoxic respiratory failure secondary to acute decompensated heart failure with reduced ejection fraction and MRSA pneumonia -Patient required intubation on 02/26/2023 -FiO2 has been reduced to 30% -On vent support. FiO2 35%. PEEP 5. -Volume overload appears to be compensated 03/02 : Tmax 101.2 Fahrenheit.-Sputum culture showing MRSA. ID consulted. Agree with IV vancomycin. -Critical care/pulmonary medicine following-appreciate input. Patient on paired awake and sedation protocol as per ICU protocol 03/03: Patient still has temperature Tmax 101.2 Fahrenheit. On IV antibiotic. The patient failed extubation trial. Remains intubated. Discussed with the pharmacy customer care specialist. 03/04: Patient still has fever. 45% FiO2. 45% FiO2. +20 L of fluid. Lasix 20 mg IV given. Low blood pressure. 03/05: Patient is +18 L of fluid. On diuresis. Low-grade fever.May be from Precedex. 03/06: Patient is still +30 L. Continue diuretic. Vent management as per pharmacy customer care specialist. Continue IV antibiotic. DTs secondary to severe alcohol withdrawal with metabolic encephalopathy -Continue Precedex but wean as able -Patient has completed a phenobarb taper -Continue IV thiamine and folate -180 consultation is pending following extubation 03/04: Patient alcohol level was 425 on admission. Atrial fibrillation -Suspect related to alcohol toxicity -Remains in sinus rhythm and has had no issues with reverting back into A-fib -Continue metoprolol IV with intent to transition back to carvedilol after extubated -Patient is on therapeutic Lovenox--> chads 2 score is 2 03/02: Lasix changed to apixaban 03/03: Heart rate is controlled in the 70s. Sinus rhythm on playground monitor. Close/hypertension sinus rhythm. Hypokalemia -Resolved Nonischemic cardiomyopathy -EF is 40% on echocardiogram with global LV dysfunction -Suspect related to alcohol use and or tachycardia mediated with A-fib -Recommend appropriate goal-directed optimal medical therapy with repeat echocardiogram in 6 to 8 weeks -Continue IV metoprolol with hold parameters -Hold lisinopril for now -Will need cardiology follow-up after discharge [id number] -Blood sugars were markedly elevated on presentation -Home compliance is questionable -Fasting blood sugar this morning is 240 -Increase Lantus to 42 from 36 units twice daily -Change SSI to high-dose -Hold Jardiance -Hold metformin while hospitalized -Continue to monitor sugars as ordered -Cardiac/carb controlled diet 03/03: A1c 10.9% glucose 205 in BMP. Glucose varies between 150-200. Insulin dose titrated up. Hypotension with history of hypertension. -Blood pressures are on the lower side right now due to the use of Precedex -Continue scheduled IV metoprolol with hold parameters -Hold lisinopril -Hold home HCTZ and amlodipine 03/03: Hypotension has resolved. Hyperlipidemia -Continue home atorvastatin GERD -Continue IV PPI History of CASE -Suspect patient noncompliant -Patient currently intubated Osteoarthritis -Hold home meloxicam -As needed Tylenol History of tobacco abuse -Quit in 2018 -Recommend ongoing cessation Obesity -BMI 32.2 -Recommend weight loss -Complicates treatment, prognosis, outcomes DVT/GI prophylaxis -Patient is on therapeutic Lovenox due to his development of A-fib -We will continue at this time with plans to transition to Eliquis -Protonix 40 mg daily IV push CODE STATUS Full code Clinical Impression(s) from Imaging Studies Brain CT 02/23/23 20:31 IMPRESSION: Normal unenhanced CT scan of the brain. Echocardiogram 02/24/23 02:38 Interpretation Summary Normal LV size. The estimated ejection fraction is 40 %. There is mild global hypokinesis of the left ventricle. Mild concentric left ventricular hypertrophy. Pulmonary artery systolic pressure is 44 mmHg. Contrast injection was performed. Chest X-Ray 02/26/23 12:55 IMPRESSION: 1. Satisfactory placement of ET tube. 2. OG tube courses down towards the abdomen but exact location is uncertain since the abdomen is not included. 3. Suspicious interstitial pneumonitis in both lungs without obvious significant change. Chest X-Ray 03/02/23 10:50 IMPRESSION: Support tubes are in good position. Improvement in the vascular congestion with bibasilar atelectasis and/or infiltrates worse on the left side. Charges/Coding Visit Charges Inpatient E&M: 14033 Subs Hosp L3
[2023-03-06] MEDS: Propofol 10MG/Ml 1,000 MG/100 ML Bottle 20.3 MG CONT INF ×3 (10:58→21:16)
[2023-03-06] MEDS: Insulin Lispro 100 UNIT/ML INSULN.PEN SC ×2 (11:02→16:51)
[2023-03-06 11:28] LABS: Bedside Glucose 180 mg/dL (74-106)
[2023-03-06] MEDS: Vital High Protein 1,000 ML 55 ML GT (15:44)
[2023-03-06 17:15] LABS: Bedside Glucose 173 mg/dL (74-106)
[2023-03-06] MEDS: Vancomycin Trough/Random Due 1 LAB MC (21:08)
[2023-03-06 22:00] LABS: Vancomycin, Trough Level 21.3 ug/mL (5.0-15.0)
[2023-03-06] MEDS: Vancomycin IV 1,000 MG/200 ML BAG 200 MG IV (22:21)
--- NOTE | 2023-03-06 22:24 | PCM.RX.CS ---
Consult Antibiotic Management Pharmacy has been consulted to manage selected antiobiotic: Vancomycin Type of Intervention Type of Consult: Follow-up Suspected Infection Suspected Infection: Pneumonia Labs Labs: Sodium 142 mmol/L (136-145) 03/06/23 03:35 Potassium 3.5 mmol/L (3.5-5.1) 03/06/23 03:35 Chloride 106 mmol/L (98-107) 03/06/23 03:35 Carbon Dioxide 31.0 mmol/L (21.0-32.0) 03/06/23 03:35 Anion Gap 5 (5-15) 03/06/23 03:35 BUN 16 mg/dL (7-18) 03/06/23 03:35 Creatinine 0.58 mg/dL (0.70-1.30) L 03/06/23 03:35 Est GFR (MDRD) Af Amer 190 mL/min (>60) 03/06/23 03:35 Est GFR (MDRD) Non-Af 157 mL/min (>60) 03/06/23 03:35 BUN/Creatinine Ratio 27.7 RATIO (10-20) H 03/06/23 03:35 Glucose 121 mg/dL (74-106) H 03/06/23 03:35 Vancomycin Trough 21.3 ug/mL (5.0-15.0) H 03/06/23 21:25 Random Vancomycin 15.4 ug/mL (0.0-15.0) H 03/04/23 20:10 Microbiology Microbiology: Microbiology 03/02/23 11:00 Blood Culture (Wb) - Right Hand Blood Culture - Preliminary No growth in 48 hours. 03/02/23 10:54 Blood Culture (Wb) - Left Hand Blood Culture - Preliminary No growth in 48 hours. 02/26/23 12:45 Sputum, Induced/Lukens Gram Stain - Final 02/26/23 12:45 Sputum, Induced/Lukens Respiratory Culture - Final Meth. resistant Staph. aureus 02/26/23 09:15 Nasal Secretion SARS-CoV-2 Antigen (Rapid) - Final Dosing Weight Weight used for dosin.6 kg Estimated Creatinine Clearance Estimated Creatinine Clearance: >100 Pharmacy Plan for Drug Dosing Pharmacy Plan for Drug Dosing: With a vancomycin trough level of 21.3, drawn 7.5hrs post-dose, we have gone slightly above the target range of 15-20. Will again slightly tweak the vanco dosing to 1000mg q8h. We will follow closely with another trough level in four doses. Pharmacy Service will continue to monitor and adjust dosing as required. Follow-Up Labs Follow-Up Labs: Trough: Vancomycin Date/Time Labs Ordered Labs to be done on [date and time ordered]: 03/07/23 @2200
[2023-03-06 23:33] LABS: Bedside Glucose 122 mg/dL (74-106)
[2023-03-07] VITALS (38 sets, daily range): BP systolic 82–102; BP diastolic 60–77; PULSE 57–77; RESP 12–23; TEMP 36.8–38; O2SAT 89–97; BMI 34.0
[2023-03-07] MEDS: Metoprolol Tartrate 5 MG/5 ML Vial IV ×4 (00:54→22:54)
[2023-03-07] MEDS: dexMEDEtomidine 1,000 MCG in 0.9% Normal Saline (250mL Bag) 240 ML 42.2 MCG CONT INF (01:25)
[2023-03-07] MEDS: Propofol 10MG/Ml 1,000 MG/100 ML Bottle 20.3 MG CONT INF (01:49)
[2023-03-07] MEDS: Ipratropium/Albuterol Sulfate 3 ML AMPUL.NEB INHALATION ×4 (02:09→19:03)
[2023-03-07] MEDS: fentaNYL drip 100 ML 10 MCG CONT INF (05:30)
[2023-03-07] MEDS: Furosemide 40 MG/4 ML Vial IV ×3 (05:35→20:32)
[2023-03-07] MEDS: Vancomycin IV 1,000 MG/200 ML BAG 200 MG IV ×3 (05:56→22:20)
[2023-03-07] MEDS: Dextrose 50%-Water 25 GM/50 ML DISP.SYRIN IV (05:56)
[2023-03-07 06:06] LABS: Bedside Glucose 68 mg/dL (74-106)
[2023-03-07] MEDS: 0.9% Saline Lock 10 ML Syringe IV ×4 (06:08→22:20)
[2023-03-07] MEDS: Propofol 10MG/Ml 1,000 MG/100 ML Bottle 19.9 MG CONT INF ×4 (06:54→20:31)
[2023-03-07] MEDS: TITRATION PARAMETER CHANGE 1 EACH IV (07:06)
[2023-03-07] MEDS: dexMEDEtomidine 1,000 MCG in 0.9% Normal Saline (250mL Bag) 240 ML 41.6 MCG CONT INF ×3 (07:21→20:09)
--- NOTE | 2023-03-07 08:13 | PCM.PN.INT ---
Assessment & Plan Assessment/Plan (1) Acute hypoxic respiratory failure: PLAN: Plan RECOMMENDATIONS: 1. Continue to wean FiO2 and PEEP to maintain oxygen saturations at or above 90%. 2. Continue tube feeding as tolerated. 3. Continue current sedation regimen and increase Seroquel. Attempt to discontinue Valium today. 4. Ongoing diuresis as tolerated by hemodynamics and renal function. 5. Continue scheduled bronchodilators. 6. Continue systemic anticoagulation with Eliquis. 7. Antimicrobials to complete 10 days of therapy. 8. Continue appropriate GI prophylaxis. IMPRESSIONS: 1. Acute hypoxemic respiratory failure The patient was initially intubated in the setting of worsening hypoxemia and profound agitation secondary to acute alcohol withdrawal. He remains significantly overall net positive from a volume status for the hospitalization. In addition, the patient had evidence of MRSA pneumonia. The patient has remained on appropriate antimicrobial therapy, which will be continued to complete 10 days of therapy. In the interim, the patient will remain on assist control mode mechanical ventilation. Plan to continue attempts at volume optimization as tolerated by hemodynamics and renal function. 2. Acute alcohol withdrawal The patient had severe DTs, despite phenobarbital taper. Plan to continue current sedation regimen. The patient Seroquel will be increased today. When to discontinue Valium. 3. Cardiomyopathy/heart failure with reduced ejection fraction Continue current supportive measures along with diuretics as tolerated. The patient does remain anticoagulated with Eliquis therapy. 4. History of diabetes mellitus/obstructive sleep apnea/GERD/hypertension/tobacco dependency in remission/opioid induced obstipation Complicates care, management, recovery and prognosis. Continue home medications as indicated. Continue tube feeding as tolerated. TIME: 32 minutes of critical care time, independent of procedures, was spent addressing the patient's acute hypoxemic respiratory failure, acute alcohol withdrawal, cardiomyopathy, review of all data and collaboration with care team. Subjective Subjective The patient was seen and examined at the bedside this morning. Events from the last 24 hours have been reviewed. The patient is currently afebrile, hemodynamically stable and maintaining appropriate oxygen saturations on assist control mode of mechanical ventilation with an FiO2 requirement of 60% and PEEP of 10. Today is ventilator day #10. The patient is currently documented to be overall net +13.8 L for the hospitalization. Despite his current sedation regimen, he remains intermittently agitated and restless. Objective Data Objective Data The patient's most recent lab work, culture data and imaging studies have all been personally reviewed. Surface echocardiogram demonstrated mild concentric LVH with an ejection fraction of 40%. Pulmonary artery systolic pressure was estimated to be 44 mmHg. Sputum culture dated February 26 was positive for MRSA. Vital Signs: Vital Signs Temp Pulse Resp BP Pulse Ox O2 Del Method O2 Flow Rate 99.8 F H 73 23 H 101/76 91 Mechanical Ventilator 50 03/07/23 07:00 03/07/23 07:25 03/07/23 07:25 03/07/23 07:00 03/07/23 07:25 03/07/23 07:00 02/26/23 12:00 FiO2 60 03/07/23 07:25 Oxygen Flow Rate (L/min) 50 Oxygen Delivery Method Mechanical Ventilator Weight: 244 lb 4.355 oz Body Mass Index (BMI) 34.0 Intake & Output: Intake and Output for Last 24 Hours 03/05/23 03/06/23 03/07/23 23:59 23:59 23:59 Intake Total 4789.97 / 4866.47 4349.03 / 4402.41 878.38 / 878.38 Output Total 5255 / 8155 6550 / 6750 1600 / 1600 Balance -465.03 / -3288.53 -2200.97 / -2347.59 -721.62 / -721.62 Lab / Micro Data Attestation: I reviewed the patient's lab results. 03/06/23 03:35 03/06/23 03:35 Labs: Laboratory Results - last 24 hr 03/06/23 11:02: POC Glucose 180 H 03/06/23 16:50: POC Glucose 173 H 03/06/23 21:25: Vancomycin Trough 21.3 H 03/06/23 23:14: POC Glucose 122 H 03/07/23 05:32: POC Glucose 68 L Micro: Microbiology 03/02/23 11:00 Blood Culture (Wb) - Right Hand Blood Culture - Preliminary No growth in 48 hours. 03/02/23 10:54 Blood Culture (Wb) - Left Hand Blood Culture - Preliminary No growth in 48 hours. 02/26/23 12:45 Sputum, Induced/Lukens Gram Stain - Final 02/26/23 12:45 Sputum, Induced/Lukens Respiratory Culture - Final Meth. resistant Staph. aureus 02/26/23 09:15 Nasal Secretion SARS-CoV-2 Antigen (Rapid) - Final Physical Exam Const Constitutional Narrative: Intubated, sedated and mechanically ventilated. HEENT normocephalic and head/scalp atraumatic Mouth: endotracheal tube in place and OG tube in place Eyes PERRL, EOMs intact bilaterally and conjunctivae normal Neck supple General: trachea midline Chest inspection of chest normal Resp normal respiratory effort Auscultation: Negative for rales, rhonchi or wheezes Cardio regular rate and regular rhythm GI normal to inspection, nondistended, normoactive bowel sounds Extremity Extremity Narrative: Right midfoot amputation. Improving lower extremity edema. Skin no rashes or lesions noted Neuro moves all extremities and no focal motor deficits Sensorium / Orientation: sedated on vent Psych Activity / Motor Behavior: restless Charges/Coding Procedures Hospitalists Procedures: 20833 Critial Care 1st Hr
[2023-03-07] MEDS: Polyethylene Glycol 3350 17 GM PACKET GT ×2 (08:33→20:31)
[2023-03-07] MEDS: Fenofibrate 145 MG Tablet GT (08:33)
[2023-03-07] MEDS: Potassium Chloride Oral Soln 20 MEQ/15 ML UDC 40 MEQ PO ×2 (08:33→17:47)
[2023-03-07] MEDS: APIXABAN 5 MG TABLET PO ×2 (08:33→20:31)
[2023-03-07] MEDS: Senna/Docusate Sodium 1 Tablet 2 TABLET GT ×2 (08:34→20:31)
[2023-03-07 08:45] LABS: Absolute Lymphocyte Count 2.02 X10^3/uL (0.83-4.51); Absolute Neutrophil Count 5.8 X10^3/uL (2.0-7.7); Basophil% 1.1 % (0-1); Eosinophils% 2.2 % (0-5); Hematocrit 36.9 % (40-54); Hemoglobin 11.8 g/dL (13.0-16.5); Lymphocyte # 2.02 X10^3/ul (0.83-4.51); Lymphocyte % 21.9 % (19-41); Mean Corpuscular Hgb 29.8 pg (27.0-32.0); Mean Corpuscular Volume 93.2 fL (80-94); Mean Platelet Vol. 10.4 fl (6.2-12.0); Monocyte# 1.02 X10^3/uL; Monocyte% 11.1 % (0-10); NRBC Flagged by Analyzer 0 % (0-5); Neutrophil # 5.83 X10^3/uL (2.7-7.7); POSITIVE COUNT YES; RBC Distribution Width CV 14.2 % (11.6-14.6); RBC Distribution Width SD 48.5 fl (35.1-43.9); Red Blood Count 3.96 M/mm3 (4.6-6.2); White Blood Count 9.2 K/mm3 (4.4-11.0)
[2023-03-07 08:48] LABS: Differential Indicated SCAN CRITERIA MET; Platelet Count 787 K/mm3 (150-450)
[2023-03-07 08:57] LABS: Anion Gap 3 (5-15); BUN 22 mg/dL (7-18); BUN/Creat Ratio 32.2 RATIO (10-20); Calcium,Total 9.7 mg/dL (8.5-10.1); Chloride 106 mmol/L (98-107); Creatinine, Serum 0.68 mg/dL (0.70-1.30); EST Glomerular Filtration Rate 130 mL/min (>60); Est Glom Filt Rate - Afr Amer 157 mL/min (>60); Estimated Creatinine Clearance 136.88 ml/min; Glucose 80 mg/dL (74-106); Potassium 3.8 mmol/L (3.5-5.1); Sodium Level 142 mmol/L (136-145)
[2023-03-07 09:00] LABS: Differential Comment SCANNED; Platelet Estimate MKD INC (ADEQ)
--- NOTE | 2023-03-07 09:51 | CASEMGMT ---
Addendum entered by Kenyetta Worthy 03/07/23 10:09: Social Work Pt's significant other Carin called SW back. She is not aware of pt having completed POA papers. SW offered support to Carin. SW will continue to follow. BARRINGTON Junior Original Note: Social Work SW participated in ICU rounds this morning. Physician would like to speak w/family in regard to pt and the plan going forward. SW called pt's mother, explained physician would like to speak w/her. SW inquired if pt has any children. Pt's mother states he has an 18 year old son at [place], Karri, who will be here 1am Tuesday night/Tuesday. Pt also has a brother Bill who pt's mother states is his best friend. Pt's mother does not know if pt ever completed POA papers, states his girlfriend may know. SW called Carin, message left to call SW back. SW spoke w/Dr. Sadler, he would like to speak w/any available family, plan would be for Tuesday. SW called pt's mother back, she will reach out to son Karri and brother Blil to see if they can meet Tuesday morning, will let SW know. She states Bill is in the [facility] as his brother in law just , SW explained he can always join by phone. She is going to call [facility]OUT back and let SW know if they can meet Tuesday. BARRINGTON Junior
[2023-03-07] MEDS: Chlorhexidine 15 ML PO ×2 (10:50→20:30)
[2023-03-07] MEDS: QUEtiapine 100 MG Tablet PO ×2 (10:51→20:32)
[2023-03-07] MEDS: Pantoprazole Sodium 40 MG in 0.9% Normal Saline (100mL MB+) 100 ML 330 MG IV (10:53)
[2023-03-07] MEDS: CHLORHEXIDINE GLUC 2% CLOTH 1 EACH TOWELETTE TOPICAL (10:54)
[2023-03-07] MEDS: Vital High Protein 1,000 ML 55 ML GT (11:40)
--- NOTE | 2023-03-07 11:48 | PN_ITS ---
Subjective Subjective Patient seen and examined. He remains intubated and sedated. Unable to do review of systems. Objective Data Objective Data Vital Signs: Vital Signs Temp Pulse Resp BP Pulse Ox O2 Del Method O2 Flow Rate 100.2 F H 63 13 93/75 92 Mechanical Ventilator 50 03/07/23 08:00 03/07/23 11:40 03/07/23 11:20 03/07/23 11:40 03/07/23 11:20 03/07/23 09:00 02/26/23 12:00 FiO2 65 03/07/23 11:20 Oxygen Flow Rate (L/min) 50 Oxygen Delivery Method Mechanical Ventilator Weight: 244 lb 4.355 oz Body Mass Index (BMI) 34.0 Intake & Output: Intake and Output for Last 24 Hours 03/05/23 03/06/23 03/07/23 23:59 23:59 23:59 Intake Total 4789.97 / 4866.47 4349.03 / 4402.41 1931.35 / 1931.35 Output Total 5255 / 8155 6550 / 6750 1600 / 1600 Balance -465.03 / -3288.53 -2200.97 / -2347.59 331.35 / 331.35 Lab / Micro Data 03/07/23 05:40 03/07/23 05:40 Labs: Laboratory Results - last 24 hr 03/06/23 16:50: POC Glucose 173 H 03/06/23 21:25: Vancomycin Trough 21.3 H 03/06/23 23:14: POC Glucose 122 H 03/07/23 05:32: POC Glucose 68 L 03/07/23 05:40: WBC 9.2, RBC 3.96 L, Hgb 11.8 L, Hct 36.9 L, MCV 93.2, MCH 29.8, MCHC 32.0, RDW Std Deviation 48.5 H, RDW Coeff of Eliezer 14.2, Plt Count 787 H*, MPV 10.4, Immature Gran % (Auto) 0.700, Neut % (Auto) 63.0, Lymph % (Auto) 21.9, Chester % (Auto) 11.1 H, Eos % (Auto) 2.2, Baso % (Auto) 1.1 H, Absolute Neuts (auto) 5.8, Absolute Lymphs (auto) 2.02, Nucleated RBC % 0, Differential Comment SCANNED, Diff Path Review May foll, Platelet Estimate MKD INC, Sodium 142, Potassium 3.8, Chloride 106, Carbon Dioxide 33.0 H, Anion Gap 3 L, BUN 22 H, Creatinine 0.68 L, Estim Creat Clear Calc 136.88, Est GFR (MDRD) Af Amer 157, Est GFR (MDRD) Non-Af 130, BUN/Creatinine Ratio 32.2 H, Glucose 80, Calcium 9.7 Micro: Microbiology 03/02/23 11:00 Blood Culture (Wb) - Right Hand Blood Culture - Preliminary No growth in 48 hours. 03/02/23 10:54 Blood Culture (Wb) - Left Hand Blood Culture - Preliminary No growth in 48 hours. 02/26/23 12:45 Sputum, Induced/Lukens Gram Stain - Final 02/26/23 12:45 Sputum, Induced/Lukens Respiratory Culture - Final Meth. resistant Staph. aureus 02/26/23 09:15 Nasal Secretion SARS-CoV-2 Antigen (Rapid) - Final Physical Exam Const Constitutional Narrative: intubated, sedated, RASS score is -4 HEENT normocephalic and head/scalp atraumatic Mouth: dry mucous membranes Eyes PERRL Neck no lymphadenopathy Lymph Lymphatic: no lymphadenopathy noted Resp Resp Narrative: intubated, sedated, diminished breath sounds bibasally, no wheezes or crackles. Cardio regular rate, regular rhythm, S1 normal heart sound, S2 normal heart sound and no murmurs GI normal to inspection, nondistended, normoactive bowel sounds, soft to palpation and non-tender Extremity normal capillary refill General Extremity: no tenderness to palpation of joints or extremities Skin General Skin Exam: no breakdown Neuro Neuro Narrative: intubated, sedated, RASS score is -4 Assessment & Plan Assessment/Plan (1) Staphylococcus aureus pneumonia: (2) Acute hypoxic respiratory failure: (3) Metabolic encephalopathy: PLAN: Plan #Acute hypoxic respiratory failure due to acute HFrEF and MRSA pneumonia * remains intubated. * critical care on board * ID and critical care on board. on IV vancomycin * also being diuresed as he is fluid overloaded. * has failed spontaneous breathing trials. * sputum cultures grew MRSA. blood cultures negative after 48 hours. * #Acute metabolic encephalopathy due to Delirium tremens from severe alcohol withdrawal * on precedex drip * has completed a phenobarbital taper. * critical care on board * on thiamine and folic acid * #Atrial fibrillation * thought to be due to alcohol * on IV metoprolol * now in normal sinus rhythm * to resume carvedilol once he is extubated * on eliquis * #Type 2 diabetes mellitus * on high dose sliding scale * jardiance and metformin on hold * A2C is 10.9 * on lantus 48 units BID * #Hypertension * resolved. HCTZ and amlodipine on hold, as well as lisinopril * #Hyperlipidemia: on statin #GERD: on PPI #History of CASE; not compliant with CPAP #Osteoarthritis: on tylenol prn. meloxicam held #DVT prophylaxis; on eliquis Charges/Coding Visit Charges Inpatient E&M: 01293 [facility] Hosp L3
--- NOTE | 2023-03-07 12:31 | PCM.PN.ID ---
Physical Exam Narrative On vent, no fever Const no apparent distress Resp normal air movement Effort and Inspection: mechanically ventilated Cardio regular rate and regular rhythm GI soft to palpation, non-tender and non-distended Extremity General Extremity: Negative for edema Skin no rashes or lesions noted ID ID: Route of nutrition/ use of supplements: [] Nutritional Intake: [] IV Site: [] Mattson Catheter: [] Assessment & Plan Assessment/Plan (1) Staphylococcus aureus pneumonia: PLAN: MRSA pneumonia, remains on vent. On vanc, day 8 of treatment. No fever, wbc normal. Will follow
[2023-03-07 13:45] LABS: Bedside Glucose 91 mg/dL (74-106)
[2023-03-07] MEDS: fentaNYL drip 100 ML 12.5 MCG CONT INF ×2 (14:14→22:15)
[2023-03-07] MEDS: Insulin Lispro 100 UNIT/ML INSULN.PEN SC ×2 (17:47→22:54)
[2023-03-07 18:14] LABS: Bedside Glucose 182 mg/dL (74-106)
[2023-03-07 22:02] LABS: Vancomycin, Trough Level 18.6 ug/mL (5.0-15.0)
[2023-03-07] MEDS: Insulin Glargine-YFGN 100 UNIT/ML Pen 48 UNIT SC (22:53)
[2023-03-07 23:15] LABS: Bedside Glucose 228 mg/dL (74-106)
[2023-03-08] VITALS (39 sets, daily range): BP systolic 79–103; BP diastolic 58–80; PULSE 56–73; RESP 12–20; TEMP 36.4–38.1; O2SAT 91–96; BMI 33.7
--- NOTE | 2023-03-08 00:59 | PCM.RX.CS ---
Consult Antibiotic Management Pharmacy has been consulted to manage selected antiobiotic: Vancomycin Type of Intervention Type of Consult: Follow-up Suspected Infection Suspected Infection: Pneumonia Labs Labs: Sodium 142 mmol/L (136-145) 03/07/23 05:40 Potassium 3.8 mmol/L (3.5-5.1) 03/07/23 05:40 Chloride 106 mmol/L (98-107) 03/07/23 05:40 Carbon Dioxide 33.0 mmol/L (21.0-32.0) H 03/07/23 05:40 Anion Gap 3 (5-15) L 03/07/23 05:40 BUN 22 mg/dL (7-18) H 03/07/23 05:40 Creatinine 0.68 mg/dL (0.70-1.30) L 03/07/23 05:40 Est GFR (MDRD) Af Amer 157 mL/min (>60) 03/07/23 05:40 Est GFR (MDRD) Non-Af 130 mL/min (>60) 03/07/23 05:40 BUN/Creatinine Ratio 32.2 RATIO (10-20) H 03/07/23 05:40 Glucose 80 mg/dL (74-106) 03/07/23 05:40 Vancomycin Trough 18.6 ug/mL (5.0-15.0) H 03/07/23 21:37 Random Vancomycin 15.4 ug/mL (0.0-15.0) H 03/04/23 20:10 Microbiology Microbiology: Microbiology 03/02/23 11:00 Blood Culture (Wb) - Right Hand Blood Culture - Final No growth in 5 days. 03/02/23 10:54 Blood Culture (Wb) - Left Hand Blood Culture - Final No growth in 5 days. 02/26/23 12:45 Sputum, Induced/Lukens Gram Stain - Final 02/26/23 12:45 Sputum, Induced/Lukens Respiratory Culture - Final Meth. resistant Staph. aureus 02/26/23 09:15 Nasal Secretion SARS-CoV-2 Antigen (Rapid) - Final Dosing Weight Weight used for dosin.8 kg Estimated Creatinine Clearance Estimated Creatinine Clearance: >100 Goal Trough Goal Trough: 15-20 mcg/mL Pharmacy Plan for Drug Dosing Pharmacy Plan for Drug Dosing: Vancomycin trough level of 18.6 was within the target range of 15-20. Will continue dosing at 1000mg q8h until the scheduled stop date of 03/09. Unless the stop date is amended, we will not need another level drawn. Pharmacy Service will continue to monitor and adjust dosing as required.
[2023-03-08] MEDS: Propofol 10MG/Ml 1,000 MG/100 ML Bottle 19.9 MG CONT INF (01:33)
[2023-03-08] MEDS: Ipratropium/Albuterol Sulfate 3 ML AMPUL.NEB INHALATION ×4 (01:52→19:05)
[2023-03-08] MEDS: dexMEDEtomidine 1,000 MCG in 0.9% Normal Saline (250mL Bag) 240 ML 41.6 MCG CONT INF (02:10)
[2023-03-08] MEDS: 0.9% Saline Lock 10 ML Syringe IV (02:35)
[2023-03-08 02:48] LABS: Absolute Lymphocyte Count 2.27 X10^3/uL (0.83-4.51); Basophil# 0.13 X10^3/uL; Basophil% 1.3 % (0-1); Eosinophil# 0.33 X10^3/uL; Eosinophils% 3.3 % (0-5); Hemoglobin 12.1 g/dL (13.0-16.5); Lymphocyte # 2.27 X10^3/ul (0.83-4.51); Lymphocyte % 22.7 % (19-41); Mean Corp Hgb Conc 31.8 g/dL (32-36); Mean Corpuscular Hgb 29.4 pg (27.0-32.0); Mean Corpuscular Volume 92.5 fL (80-94); Mean Platelet Vol. 9.7 fl (6.2-12.0); Monocyte# 1.13 X10^3/uL; Monocyte% 11.3 % (0-10); NRBC Flagged by Analyzer 0.2 % (0-5); Neutrophil # 6.02 X10^3/uL (2.7-7.7); POSITIVE COUNT YES; RBC Distribution Width CV 14.1 % (11.6-14.6); RBC Distribution Width SD 47.7 fl (35.1-43.9); Red Blood Count 4.11 M/mm3 (4.6-6.2)
[2023-03-08 02:52] LABS: Differential Indicated SCAN CRITERIA MET; Platelet Count 841 K/mm3 (150-450)
[2023-03-08 03:05] LABS: Anion Gap 5 (5-15); BUN 21 mg/dL (7-18); BUN/Creat Ratio 31.8 RATIO (10-20); Calcium,Total 9.1 mg/dL (8.5-10.1); Chloride 102 mmol/L (98-107); Creatinine, Serum 0.66 mg/dL (0.70-1.30); EST Glomerular Filtration Rate 135 mL/min (>60); Est Glom Filt Rate - Afr Amer 163 mL/min (>60); Estimated Creatinine Clearance 141.03 ml/min; Glucose 173 mg/dL (74-106); Potassium 3.9 mmol/L (3.5-5.1); Sodium Level 139 mmol/L (136-145)
[2023-03-08 03:39] LABS: Platelet Estimate MKD INC (ADEQ)
[2023-03-08] MEDS: Vital High Protein 1,000 ML 55 ML GT ×2 (04:27→22:22)
[2023-03-08] MEDS: TITRATION PARAMETER CHANGE 1 EACH IV (04:30)
[2023-03-08] MEDS: CHLORHEXIDINE GLUC 2% CLOTH 1 EACH TOWELETTE TOPICAL (04:30)
[2023-03-08] MEDS: Metoprolol Tartrate 5 MG/5 ML Vial IV ×4 (05:08→22:21)
[2023-03-08] MEDS: Furosemide 40 MG/4 ML Vial IV ×3 (05:08→20:09)
[2023-03-08] MEDS: Insulin Lispro 100 UNIT/ML INSULN.PEN SC ×4 (05:12→22:22)
[2023-03-08 05:32] LABS: Bedside Glucose 205 mg/dL (74-106)
[2023-03-08] MEDS: Vancomycin IV 1,000 MG/200 ML BAG 200 MG IV ×3 (05:35→22:28)
[2023-03-08] MEDS: fentaNYL drip 100 ML 12.5 MCG CONT INF ×3 (06:15→22:09)
[2023-03-08] MEDS: Propofol 10MG/Ml 1,000 MG/100 ML Bottle 19.7 MG CONT INF ×3 (06:54→20:08)
--- NOTE | 2023-03-08 07:15 | PN.CC_ITS ---
Assessment & Plan Assessment/Plan (1) Acute hypoxic respiratory failure: PLAN: Plan RECOMMENDATIONS: 1. Continue to wean FiO2 and PEEP to maintain oxygen saturations at or above 90%. 2. Continue tube feeding as tolerated. 3. Continue current sedation regimen including Seroquel. 4. Ongoing diuresis as tolerated by hemodynamics and renal function. Will add dose of metolazone today. 5. Continue scheduled bronchodilators. 6. Continue systemic anticoagulation with Eliquis. 7. Antimicrobials to complete 10 days of therapy. 8. Continue appropriate GI prophylaxis. 9. Consider hematology evaluation given worsening thrombocytosis. IMPRESSIONS: 1. Acute hypoxemic respiratory failure The patient was initially intubated in the setting of worsening hypoxemia and profound agitation secondary to acute alcohol withdrawal. He remains significantly overall net positive from a volume status for the hospitalization. In addition, the patient had evidence of MRSA pneumonia. The patient has remained on appropriate antimicrobial therapy, which will be continued to complete 10 days of therapy. In the interim, the patient will remain on assist control mode mechanical ventilation. Plan to continue attempts at volume optimization as tolerated by hemodynamics and renal function. 2. Acute alcohol withdrawal The patient had severe DTs, despite phenobarbital taper. Plan to continue current sedation regimen. 3. Cardiomyopathy/heart failure with reduced ejection fraction Continue current supportive measures along with diuretics as tolerated. The patient does remain anticoagulated with Eliquis therapy. 4. Thrombocytosis Most likely reactive in nature. However, given worsening platelet count over the last 4 days, would consider hematology evaluation. 5. History of diabetes mellitus/obstructive sleep apnea/GERD/hyper tension/tobacco dependency in remission/opioid induced obstipation Complicates care, management, recovery and prognosis. Continue home medications as indicated. Continue tube feeding as tolerated. TIME: 34 minutes of critical care time, independent of procedures, was spent addressing the patient's acute hypoxemic respiratory failure, acute alcohol withdrawal, cardiomyopathy, thrombocytosis, review of all data and collaboration with care team. Subjective Subjective The patient was seen and examined at the bedside this morning. Events from the last 24 hours have been reviewed. The patient is currently afebrile, hemodynamically stable and maintaining appropriate oxygen saturations on assist control mode of mechanical ventilation with an FiO2 requirement of 55% and PEEP of 10. Today is vent day #11. The patient is documented to be overall net +12.9 L for the hospitalization. The patient's platelet count continues to rise. Creatinine remains stable. The patient remains on 3 times daily Lasix. Objective Data Objective Data The patient's most recent lab work, culture data and imaging studies have all been personally reviewed. Surface echocardiogram demonstrated mild concentric LVH with an ejection fraction of 40%. Pulmonary artery systolic pressure was estimated to be 44 mmHg. Sputum culture dated February 26 was positive for MRSA. Vital Signs: Vital Signs Temp Pulse Resp BP Pulse Ox O2 Del Method O2 Flow Rate 100.6 F H 70 14 92/70 92 Mechanical Ventilator 50 03/08/23 07:00 03/08/23 07:00 03/08/23 07:00 03/08/23 07:00 03/08/23 07:00 03/08/23 07:00 02/26/23 12:00 FiO2 55 03/08/23 07:00 Oxygen Flow Rate (L/min) 50 Oxygen Delivery Method Mechanical Ventilator Weight: 240 lb 11.916 oz Body Mass Index (BMI) 33.7 Intake & Output: Intake and Output for Last 24 Hours 03/06/23 03/07/23 03/08/23 23:59 23:59 23:59 Intake Total 4349.03 / 4402.41 3731.87 / 3805.87 1762.95 / 1762.95 Output Total 6550 / 6750 6700 / 6700 400 / 400 Balance -2200.97 / -2347.59 -2968.13 / -2894.13 1362.95 / 1362.95 Lab / Micro Data Attestation: I reviewed the patient's lab results. 03/08/23 02:41 03/08/23 02:41 Labs: Laboratory Results - last 24 hr 03/07/23 05:40: WBC 9.2, RBC 3.96 L, Hgb 11.8 L, Hct 36.9 L, MCV 93.2, MCH 29.8, MCHC 32.0, RDW Std Deviation 48.5 H, RDW Coeff of Eliezer 14.2, Plt Count 787 H*, MPV 10.4, Immature Gran % (Auto) 0.700, Neut % (Auto) 63.0, Lymph % (Auto) 21.9, [place] % (Auto) 11.1 H, Eos % (Auto) 2.2, Baso % (Auto) 1.1 H, Absolute Neuts (auto) 5.8, Absolute Lymphs (auto) 2.02, Nucleated RBC % 0, Differential Comment SCANNED, Diff Path Review July kaveh, Platelet Estimate MKD INC, Sodium 142, Potassium 3.8, Chloride 106, Carbon Dioxide 33.0 H, Anion Gap 3 L, BUN 22 H, Creatinine 0.68 L, Estim Creat Clear Calc 136.88, Est GFR (MDRD) Af Amer 157, Est GFR (MDRD) Non-Af 130, BUN/Creatinine Ratio 32.2 H, Glucose 80, Calcium 9.7 03/07/23 11:35: POC Glucose 91 03/07/23 17:44: POC Glucose 182 H 03/07/23 21:37: Vancomycin Trough 18.6 H 03/07/23 22:52: POC Glucose 228 H 03/08/23 02:41: WBC 10.0, RBC 4.11 L, Hgb 12.1 L, Hct 38.0 L, MCV 92.5, MCH 29.4, MCHC 31.8 L, RDW Std Deviation 47.7 H, RDW Coeff of Eliezer 14.1, Plt Count 841 H*, MPV 9.7, Immature Gran % (Auto) 1.400 H, Neut % (Auto) 60.0, Lymph % (Auto) 22.7, [place] % (Auto) 11.3 H, Eos % (Auto) 3.3, Baso % (Auto) 1.3 H, Absolute Neuts (auto) 6.0, Absolute Lymphs (auto) 2.27, Nucleated RBC % 0.2, Diff Path Review July kaveh, Platelet Estimate MKD INC, Sodium 139, Potassium 3.9, Chloride 102, Carbon Dioxide 32.0, Anion Gap 5, BUN 21 H, Creatinine 0.66 L, Estim Creat Clear Calc 141.03, Est GFR (MDRD) Af Amer 163, Est GFR (MDRD) Non-Af 135, BUN/Creatinine Ratio 31.8 H, Glucose 173 H, Calcium 9.1 03/08/23 05:12: POC Glucose 205 H Micro: Microbiology 03/02/23 11:00 Blood Culture (Wb) - Right Hand Blood Culture - Final No growth in 5 days. 03/02/23 10:54 Blood Culture (Wb) - Left Hand Blood Culture - Final No growth in 5 days. 02/26/23 12:45 Sputum, Induced/Lukens Gram Stain - Final 02/26/23 12:45 Sputum, Induced/Lukens Respiratory Culture - Final Meth. resistant Staph. aureus 02/26/23 09:15 Nasal Secretion SARS-CoV-2 Antigen (Rapid) - Final Physical Exam Const Constitutional Narrative: Intubated, sedated and mechanically ventilated. HEENT normocephalic and head/scalp atraumatic Mouth: endotracheal tube in place and OG tube in place Eyes PERRL, EOMs intact bilaterally and conjunctivae normal Neck supple General: trachea midline Chest inspection of chest normal Resp normal respiratory effort Auscultation: Negative for rales, rhonchi or wheezes Cardio regular rate and regular rhythm GI normal to inspection, nondistended, normoactive bowel sounds Extremity Extremity Narrative: Right midfoot amputation. Improving lower extremity edema. Skin no rashes or lesions noted Neuro moves all extremities and no focal motor deficits Sensorium / Orientation: sedated on vent Charges/Coding Procedures Hospitalists Procedures: 60780 Critial Care 1st Hr
[2023-03-08] MEDS: dexMEDEtomidine 1,000 MCG in 0.9% Normal Saline (250mL Bag) 240 ML 41 MCG CONT INF ×3 (08:06→20:08)
[2023-03-08] MEDS: Potassium Chloride Oral Soln 20 MEQ/15 ML UDC 40 MEQ PO ×2 (08:08→15:57)
[2023-03-08] MEDS: Polyethylene Glycol 3350 17 GM PACKET GT ×2 (08:09→20:08)
[2023-03-08] MEDS: Senna/Docusate Sodium 1 Tablet 2 TABLET GT ×2 (08:09→20:08)
[2023-03-08] MEDS: APIXABAN 5 MG TABLET PO ×2 (08:09→20:08)
[2023-03-08] MEDS: QUEtiapine 100 MG Tablet PO ×2 (08:09→20:08)
[2023-03-08] MEDS: Fenofibrate 145 MG Tablet GT (08:09)
[2023-03-08] MEDS: Chlorhexidine 15 ML PO ×2 (08:10→20:08)
--- NOTE | 2023-03-08 08:57 | ONC.CONSULT ---
Assessment & Plan Assessment/Plan (1) Thrombocytosis: Status: Acute Code(s): D75.839 - Thrombocytosis, unspecified Plan: Acute progressive thrombocytosis during an acute hospital stay with pneumonia and multisystem organ failure. History notable for being postsplenectomy. The findings are consistent with an acute phase reaction plus delay in all platelet clearance postsplenectomy. No findings to suggest a primary myeloproliferative disease. No further workup from hematology indicated. If the thrombocytosis does not resolve at the time of discharge, would follow-up 1 month later. Carolina Diallo MD [employer], [facility] Divisions of Medical Oncology & Hematology Department of Internal Medicine [place] [id number] This note was generated using a voice recognition system software. Although it was reviewed by the author prior to finalization, it may still contain incorrect words, spelling, and punctuation that were not noted when reviewing prior to saving. If a clinically significant typo or inaccurately typed phrase is noted, please notify the author. 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 Asha Arreaga MD Attending: Dr. Sherri Rogers MD Chief Complaint Chief Complaint: Patient was hospitalized with acute alcohol intoxication History of Present Illness History of Present Illness: Patient hospitalized with complications of alcoholism and is acutely ill with multiorgan system failure including pneumonia and respiratory failure on ventilation. Hematology consulted for thrombocytosis. Past medical history notable for postsplenectomy status (cause unclear from records) see table below: Laboratory Tests 03/05/20 06/23/21 07/07/22 05:10 11:15 11:58 Plt Count 445 513 H 593 H 08/14/22 02/23/23 02/24/23 13:04 19:48 03:10 Plt Count 500 H 476 H 413 02/26/23 02/27/23 02/28/23 06:57 04:27 03:21 Plt Count 330 353 352 03/01/23 03/05/23 03/06/23 03:40 04:56 03:35 Plt Count 348 528 H 645 H 03/07/23 03/08/23 05:40 02:41 Plt Count 787 H* 841 H* Advanced Directives Power of Cardiac/Vascular Sonographer: Yes Living Will: Yes [facility] Medical History (Updated 03/08/23 @ 12:[address] Carolina Diallo MD) Abdominal pain Arthritis Chronic pain Depression Diabetes GERD (gastroesophageal reflux disease) HTN (hypertension), benign Hyperlipidemia Screening for colon cancer Seizure disorder Sleep apnea Urinary urgency Ventral hernia Home Medications compress.stocking,knee,reg,lrg #2 ea 05/18/18 [Rx Last Taken Unknown] dextroamphetamine-amphetamine ER 50 mg capsule,3 bead,ext release 24hr (Mydayis) 50 mg PO DAILY Adult ADD 01/23/19 [History Last Taken Unknown] blood sugar diagnostic 02/15/20 [History Last Taken Unknown] buprenorphine 10 mcg/hour weekly transdermal patch 1 patch transdermal Q7D 03/26/20 [History Last Taken Unknown] trazodone 100 mg tablet 300 mg PO QHS sleep 04/24/20 [History Last Taken Unknown] pen needle, diabetic 31 gauge x 5/16 (Unifine Pentips) #200 ea 06/16/21 [Rx Last Taken Unknown] alcohol swabs 4 pad topical .qid Check with primary doctor #200 ea 09/08/21 [Rx Last Taken Unknown] empagliflozin 25 mg tablet 25 mg PO QAM diabetes #90 tabs 10/20/21 [Rx Last Taken Unknown] fluticasone propionate 50 mcg/actuation nasal spray,suspension 2 spray intranasal DAILY PRN Congestion #16 grams 10/30/21 [Rx Last Taken Unknown] albuterol sulfate 90 mcg/actuation aerosol inhaler (ProAir HFA) 1 - 2 puff inhalation Q6H PRN shortness of breath or wheezing #8.5 grams 05/18/22 [Rx Last Taken Unknown] albuterol sulfate 90 mcg/actuation aerosol inhaler (Ventolin HFA) 2 puff inhalation Q6H PRN shortness of breath or wheezing #8.5 grams 05/18/22 [Rx Last Taken Unknown] doxazosin 2 mg tablet 2 mg PO QHS blood pressure #90 tabs 05/18/22 [Rx Last Taken Unknown] meloxicam 15 mg tablet 15 mg PO DAILY PRN pain #30 tabs 05/18/22 [Rx Last Taken Unknown] blood sugar diagnostic (True Metrix Glucose Test Strip) #100 ea 06/17/22 [Rx Last Taken Unknown] blood-glucose meter (True Metrix Glucose Meter) #1 ea 06/17/22 [Rx Last Taken Unknown] lancets 28 gauge (FreeStyle Lancets) #200 ea 06/17/22 [Rx Last Taken Unknown] flash glucose scanning reader (FreeStyle Frances 2 [place]) #1 ea 07/12/22 [Rx Last Taken Unknown] insulin lispro 100 unit/mL subcutaneous pen (Humalog KwikPen (U-100) Insulin) See Rx Instructions .Route .COMPLEX #15 mL 08/02/22 [Rx Last Taken Unknown] amlodipine 10 mg tablet See Rx Instructions .Route .COMPLEX #30 tabs 01/14/23 [Rx Last Taken Unknown] atorvastatin 40 mg tablet See Rx Instructions .Route .COMPLEX #30 tabs 01/14/23 [Rx Last Taken Unknown] fenofibrate nanocrystallized 145 mg tablet See Rx Instructions .Route .COMPLEX #30 tabs 01/14/23 [Rx Last Taken Unknown] hydrochlorothiazide 25 mg tablet See Rx Instructions .Route .COMPLEX #30 tabs 01/14/23 [Rx Last Taken Unknown] flash glucose sensor (FreeStyle Frances 2 Sensor kit) #1 ea 02/01/23 [Rx Last Taken Unknown] insulin degludec 100 unit/mL (3 mL) subcutaneous pen 65 unit (0.65 mL) subcut QHS diabetes 3 months #58.5 mL 02/01/23 [Rx Last Taken Unknown] pantoprazole 40 mg tablet,delayed release See Rx Instructions .Route .COMPLEX #60 tabs 02/10/23 [Rx Last Taken Unknown] metformin 500 mg tablet,extended release 24hr (osmotic) 1,000 mg (2 x 500 mg) PO BID diabetes 3 months #360 tabs 02/16/23 [Rx Last Taken Unknown] Allergy/AdvReac Type Severity Reaction Status Date / Time No Known Allergies Allergy Verified 02/23/23 19:37 Family History Father Diabetes Mother Multiple sclerosis Other CVA (cerebral vascular accident) Surgical History (Updated 03/08/23 @ 12:[address] Carolina Diallo MD) cyst removed from pancreas History of amputation History of bilateral knee replacement Post-splenectomy S/P total knee arthroplasty Social History Smoking Status: Former smoker Tobacco: How many years used: 30 Smokeless tobacco user: snuff how long ago did patient quit smokin, 1ppd second hand exposure: Yes alcohol intake: former year quit: 2017 substance use type: does not use what type of physical activity do you participate in: none ROS ROS Narrative Patient intubated and sedated. Physical Exam Narrative Patient intubated and sedated. No acute ischemic changes in the extremities, patient is status post right forefoot amputation (old) Vital Signs Temperature 100.1 F H 03/08/23 08:00 Temperature Source Core 03/08/23 08:00 Pulse Rate 70 03/08/23 08:00 Pulse Strength Weak (1+) 03/07/23 19:49 Respiratory Rate 14 03/08/23 08:00 Respiratory Effort Mechanically Ventilated 03/08/23 08:00 Respiratory Depth Normal 03/08/23 08:00 Respiratory Pattern Normal 03/08/23 08:00 Blood Pressure 103/80 03/08/23 08:00 Blood Pressure Mean 87 03/08/23 08:00 Blood Pressure Source Monitor 03/08/23 08:00 Blood Pressure Position Semi-Fowlers 03/08/23 08:00 Blood Pressure Location Right Arm 03/08/23 08:00 Pulse Ox 96 03/08/23 08:00 Oxygen Delivery Method Mechanical Ventilator 03/08/23 08:00 Oxygen Flow Rate (L/min) 50 02/26/23 12:00 Fraction of Inspired Oxygen (FIO2) 55 03/08/23 08:00 Laboratory Results - last 24 hr 03/07/23 05:40: Differential Comment SCANNED, Diff Path Review May foll, Platelet Estimate MKD INC, Sodium 142, Potassium 3.8, Chloride 106, Carbon Dioxide 33.0 H, Anion Gap 3 L, BUN 22 H, Creatinine 0.68 L, Estim Creat Clear Calc 136.88, Est GFR (MDRD) Af Amer 157, Est GFR (MDRD) Non-Af 130, BUN/Creatinine Ratio 32.2 H, Glucose 80, Calcium 9.7 03/07/23 11:35: POC Glucose 91 03/07/23 17:44: POC Glucose 182 H 03/07/23 21:37: Vancomycin Trough 18.6 H 03/07/23 22:52: POC Glucose 228 H 03/08/23 02:41: WBC 10.0, RBC 4.11 L, Hgb 12.1 L, Hct 38.0 L, MCV 92.5, MCH 29.4, MCHC 31.8 L, RDW Std Deviation 47.7 H, RDW Coeff of Eliezer 14.1, Plt Count 841 H*, MPV 9.7, Immature Gran % (Auto) 1.400 H, Neut % (Auto) 60.0, Lymph % (Auto) 22.7, [place] % (Auto) 11.3 H, Eos % (Auto) 3.3, Baso % (Auto) 1.3 H, Absolute Neuts (auto) 6.0, Absolute Lymphs (auto) 2.27, Nucleated RBC % 0.2, Diff Path Review July, Platelet Estimate MKD INC, Sodium 139, Potassium 3.9, Chloride 102, Carbon Dioxide 32.0, Anion Gap 5, BUN 21 H, Creatinine 0.66 L, Estim Creat Clear Calc 141.03, Est GFR (MDRD) Af Amer 163, Est GFR (MDRD) Non-Af 135, BUN/Creatinine Ratio 31.8 H, Glucose 173 H, Calcium 9.1 03/08/23 05:12: POC Glucose 205 H Microbiology 03/02/23 11:00 Blood Culture (Wb) - Right Hand Blood Culture - Final No growth in 5 days. 03/02/23 10:54 Blood Culture (Wb) - Left Hand Blood Culture - Final No growth in 5 days. Diagnostic Data Brain CT 02/23/23 20:31 IMPRESSION: Normal unenhanced CT scan of the brain. Electronically Signed: Mauricio Leigh MD at 21:21 EST , Echocardiogram 02/24/23 02:38 Interpretation Summary Normal LV size. The estimated ejection fraction is 40 %. There is mild global hypokinesis of the left ventricle. Mild concentric left ventricular hypertrophy. Pulmonary artery systolic pressure is 44 mmHg. Contrast injection was performed. Ordering Physician: Bill Moran Referring Physician: Asha Arreaga Performed By: Michelle Stanley RDCS Chest X-Ray 03/02/23 10:50 IMPRESSION: Support tubes are in good position. Improvement in the vascular congestion with bibasilar atelectasis and/or infiltrates worse on the left side. Electronically Signed: Karan Talbert MD at 12:11 EST ,
[2023-03-08] MEDS: metOLazone 5 MG Tablet PO (09:25)
[2023-03-08] MEDS: Pantoprazole Sodium 40 MG in 0.9% Normal Saline (100mL MB+) 100 ML 330 MG IV (09:26)
--- NOTE | 2023-03-08 10:39 | PCM.PN.ID ---
Physical Exam Narrative Low grade fever, on vent Const no apparent distress Resp clear to auscultation bilaterally Auscultation: diminished lung sounds Cardio regular rate and regular rhythm GI soft to palpation, non-tender and non-distended Skin no rashes or lesions noted ID ID: Route of nutrition/ use of supplements: [] Nutritional Intake: [] IV Site: [] Mattson Catheter: [] Assessment & Plan Assessment/Plan (1) Staphylococcus aureus pneumonia: PLAN: MRSA pneumonia, remains on vent. On vanc, day 9 of treatment. No fever, wbc normal. FiO2 improving. Will follow
--- NOTE | 2023-03-08 10:45 | PN_ITS ---
Subjective Subjective Patient seen and examined. He remains intubated and sedated. He is able to open his eyes today, but doesnt unable to respond to questions. Unable to do review of systems. Wbc is 10, and platelets are up to 841. Objective Data Objective Data Vital Signs: Vital Signs Temp Pulse Resp BP Pulse Ox O2 Del Method O2 Flow Rate 100.2 F H 70 15 99/73 94 Mechanical Ventilator 50 03/08/23 10:00 03/08/23 10:00 03/08/23 10:00 03/08/23 10:00 03/08/23 10:00 03/08/23 10:00 02/26/23 12:00 FiO2 50 03/08/23 10:00 Oxygen Flow Rate (L/min) 50 Oxygen Delivery Method Mechanical Ventilator Weight: 240 lb 11.916 oz Body Mass Index (BMI) 33.7 Intake & Output: Intake and Output for Last 24 Hours 03/06/23 03/07/23 03/08/23 23:59 23:59 23:59 Intake Total 4349.03 / 4402.41 3731.87 / 3805.87 2194.92 / 2194.92 Output Total 6550 / 6750 6700 / 6700 1400 / 1400 Balance -2200.97 / -2347.59 -2968.13 / -2894.13 794.92 / 794.92 Lab / Micro Data 03/08/23 02:41 03/08/23 02:41 Labs: Laboratory Results - last 24 hr 03/07/23 11:35: POC Glucose 91 03/07/23 17:44: POC Glucose 182 H 03/07/23 21:37: Vancomycin Trough 18.6 H 03/07/23 22:52: POC Glucose 228 H 03/08/23 02:41: WBC 10.0, RBC 4.11 L, Hgb 12.1 L, Hct 38.0 L, MCV 92.5, MCH 29.4, MCHC 31.8 L, RDW Std Deviation 47.7 H, RDW Coeff of Eliezer 14.1, Plt Count 841 H*, MPV 9.7, Immature Gran % (Auto) 1.400 H, Neut % (Auto) 60.0, Lymph % (Auto) 22.7, [place] % (Auto) 11.3 H, Eos % (Auto) 3.3, Baso % (Auto) 1.3 H, Ab solute Neuts (auto) 6.0, Absolute Lymphs (auto) 2.27, Nucleated RBC % 0.2, Diff Path Review May foll, Platelet Estimate MKD INC, Sodium 139, Potassium 3.9, Chloride 102, Carbon Dioxide 32.0, Anion Gap 5, BUN 21 H, Creatinine 0.66 L, Estim Creat Clear Calc 141.03, Est GFR (MDRD) Af Amer 163, Est GFR (MDRD) Non-Af 135, BUN/Creatinine Ratio 31.8 H, Glucose 173 H, Calcium 9.1 03/08/23 05:12: POC Glucose 205 H Micro: Microbiology 03/02/23 11:00 Blood Culture (Wb) - Right Hand Blood Culture - Final No growth in 5 days. 03/02/23 10:54 Blood Culture (Wb) - Left Hand Blood Culture - Final No growth in 5 days. 02/26/23 12:45 Sputum, Induced/Lukens Gram Stain - Final 02/26/23 12:45 Sputum, Induced/Lukens Respiratory Culture - Final Meth. resistant Staph. aureus 02/26/23 09:15 Nasal Secretion SARS-CoV-2 Antigen (Rapid) - Final Physical Exam Const Constitutional Narrative: intubated, sedated, RASS score is +1 HEENT normocephalic, head/scalp atraumatic and moist oral mucous membranes Eyes PERRL and conjunctivae normal Neck no lymphadenopathy and supple Lymph Lymphatic: no lymphadenopathy noted Resp Resp Narrative: intubated, sedated, diminished breath sounds bibasally, no wheezes or crackles. Auscultation: crackles; Negative for rales, rhonchi or wheezes Cardio regular rate, regular rhythm, S1 normal heart sound, S2 normal heart sound, no murmurs, no rub, no gallops and no clicks GI normal to inspection, nondistended, normoactive bowel sounds, soft to palpation, non-tender and non-distended Extremity normal capillary refill and no clubbing, cyanosis or edema Extremity Narrative: Right transmetatarsal amputation noted from previous well-healed, pedal pulses are 2+ bilaterally General Extremity: no tenderness to palpation of joints or extremities Skin General Skin Exam: no breakdown Neuro moves all extremities Neuro Narrative: intubated, sedated, RASS score is -1 Psych Psych Narrative: Unable to assess due to intubation and sedation Assessment & Plan Assessment/Plan (1) Staphylococcus aureus pneumonia: (2) Acute hypoxic respiratory failure: (3) Metabolic encephalopathy: PLAN: Plan #Acute hypoxic respiratory failure due to acute HFrEF and MRSA pneumonia * still remains intubated. * critical care on board * ID and critical care on board. on IV vancomycin * also being diuresed as he is fluid overloaded. metolazone added on today * has failed spontaneous breathing trials. to have another attempt at spontaneous breathing trial today. * sputum cultures grew MRSA. blood cultures negative after 48 hours. * #Acute metabolic encephalopathy due to Delirium tremens from severe alcohol withdrawal * on precedex drip * has completed a phenobarbital taper. * critical care on board * on thiamine and folic acid * #THrombocytosis * platelets are up to >840 * Been trending upwards. Hematology consulted today. Await recs. * #Atrial fibrillation * thought to be due to alcohol * on IV metoprolol * now in normal sinus rhythm * to resume carvedilol once he is extubated * on eliquis * #Type 2 diabetes mellitus * on high dose sliding scale * jardiance and metformin on hold * A2C is 10.9 * on lantus 48 units BID * #Hypertension * resolved. HCTZ and amlodipine on hold, as well as lisinopril * #Hyperlipidemia: on statin #GERD: on PPI #History of CASE; not compliant with CPAP #Osteoarthritis: on tylenol prn. meloxicam held #DVT prophylaxis; on eliquis Total time spent on evaluation and management of patient, reviewing chart and specialist notes, discussion with nursing and ancillary staff as well as documentation: 50 mins Charges/Coding Visit Charges Inpatient E&M: 76509 [facility] L[facility]
[2023-03-08] MEDS: Insulin Glargine-YFGN 100 UNIT/ML Pen 48 UNIT SC ×2 (11:02→22:21)
[2023-03-08 11:28] LABS: Bedside Glucose 203 mg/dL (74-106)
--- NOTE | 2023-03-08 12:13 | CASEMGMT ---
Social Work Pt's mother called back, they will be here tomorrow for the family meeting. Pt's mother Reanna will be there, his father Chace may show up. Also his son Karri will be there and his brother Bill may participate by phone. Reanna will reach out to pt's significant other to see if she wants to participate. Reanna state's pt's ex Jocelyne wants to be there also(Karri's mother), SW explained that this may not be appropriate. The meeting is to be at 9:30am tomorrow, SW covering ICU will let the doctor know. BARRINGTON Junior
[2023-03-08 12:47] LABS: Pathologist Review Reviewed
--- NOTE | 2023-03-08 13:00 | CASEMGMT ---
ARTURO Burton notified SCOUT that patient's brother Bill called in and is aware of the meeting tomorrow. Bill would like the social services manager to call him regarding the meeting. Bill's phone number is [phone]. SCOUT passed along this message to Zully BUTTERFIELD that is covering this patient. Jaylene Hines MSW RICCO
[2023-03-08 13:01] LABS: Pathologist Review Reviewed
[2023-03-08] MEDS: Propofol 10MG/Ml 1,000 MG/100 ML Bottle 16.4 MG CONT INF (15:55)
[2023-03-08 17:25] LABS: Bedside Glucose 202 mg/dL (74-106)
--- NOTE | 2023-03-08 18:40 | CASEMGMT ---
Social Work Handoff received from DEVON Junior today, that patient's 18 year old son Karri, mother Reanna, and potentially patient's father Chace can be present at 0930 on 03.09.23 for a family meeting to discuss goals of care with Dr. Sadler. Patient's brother Bill to possibly join by phone. This senior copywriter communicated with Dr. Sadler, who was in agreement with time. Received call from patient's brother Bill ([phone]) requesting meeting be moved to 1030 or 1100, as Bill has calling hours for another family member at 0930 in [place]. Bill reports has talked to Reanna who is okay with changing the time, but has not confirmed with Karri or Chace. Bill reports could get an update from the other family members, if cannot change time, but hoping to be present. Bill voiced belief may have POAHC paperwork back home but is not certain. Educated Bill that without substantiated POAHC paperwork, decision making falls to: spouse, adult child, parent, siblings. Educated that it appears adult son, Karri, is in line for decision making. Educated Bill, that patients parents and sibling Bill were included in the invitation for the meeting so all parties can hear, and also provide support to Karri as Karri makes decisions. Bill expressed understanding and acceptance of information provided. This senior copywriter agreed to ask the physician as to if the new time is even a possibility for the doctor. Checked with Dr. Sadler, who is not available at [phone]. Called Bill back and left message that 0930 meeting time still stands. Plan: Family meeting with Dr. Sadler to discuss goals of care at 0930 on 03.09.23. Social work following. -DEVON Chilel
[2023-03-08 22:51] LABS: Bedside Glucose 202 mg/dL (74-106)
[2023-03-09] VITALS (34 sets, daily range): BP systolic 79–111; BP diastolic 58–95; PULSE 56–81; RESP 12–25; TEMP 36.9–38.3; O2SAT 92–96; BMI 32.6
[2023-03-09] MEDS: Propofol 10MG/Ml 1,000 MG/100 ML Bottle 19.7 MG CONT INF (00:46)
[2023-03-09] MEDS: Ipratropium/Albuterol Sulfate 3 ML AMPUL.NEB INHALATION ×4 (01:38→19:31)
[2023-03-09] MEDS: dexMEDEtomidine 1,000 MCG in 0.9% Normal Saline (250mL Bag) 240 ML 41 MCG CONT INF (02:14)
[2023-03-09] MEDS: CHLORHEXIDINE GLUC 2% CLOTH 1 EACH TOWELETTE TOPICAL (02:15)
[2023-03-09 03:47] LABS: Absolute Lymphocyte Count 1.93 X10^3/uL (0.83-4.51); Absolute Neutrophil Count 9.6 X10^3/uL (2.0-7.7); Basophil# 0.15 X10^3/uL; Basophil% 1.1 % (0-1); Eosinophil# 0.27 X10^3/uL; Hematocrit 37.6 % (40-54); Hemoglobin 12.2 g/dL (13.0-16.5); Lymphocyte # 1.93 X10^3/ul (0.83-4.51); Lymphocyte % 14.3 % (19-41); Mean Corp Hgb Conc 32.4 g/dL (32-36); Mean Corpuscular Hgb 29.5 pg (27.0-32.0); Mean Platelet Vol. 9.8 fl (6.2-12.0); Monocyte# 1.39 X10^3/uL; Monocyte% 10.3 % (0-10); NRBC Flagged by Analyzer 0 % (0-5); Neutrophil % 71.5 % (47-70); POSITIVE COUNT YES; RBC Distribution Width CV 13.6 % (11.6-14.6); RBC Distribution Width SD 45.8 fl (35.1-43.9); Red Blood Count 4.13 M/mm3 (4.6-6.2); White Blood Count 13.5 K/mm3 (4.4-11.0)
[2023-03-09 04:03] LABS: Anion Gap 5 (5-15); BUN 26 mg/dL (7-18); BUN/Creat Ratio 33.6 RATIO (10-20); Calcium,Total 9.6 mg/dL (8.5-10.1); Chloride 97 mmol/L (98-107); Creatinine, Serum 0.77 mg/dL (0.70-1.30); EST Glomerular Filtration Rate 112 mL/min (>60); Est Glom Filt Rate - Afr Amer 136 mL/min (>60); Estimated Creatinine Clearance 120.88 ml/min; Glucose 206 mg/dL (74-106); Potassium 3.8 mmol/L (3.5-5.1); Sodium Level 136 mmol/L (136-145)
[2023-03-09 04:22] LABS: Differential Comment SCANNED; Differential Indicated SCAN CRITERIA MET; Platelet Count 897 K/mm3 (150-450)
[2023-03-09] MEDS: Furosemide 40 MG/4 ML Vial IV ×3 (04:54→20:48)
[2023-03-09] MEDS: Acetaminophen 650 MG/20 ML UDC GT (04:54)
[2023-03-09] MEDS: Insulin Lispro 100 UNIT/ML INSULN.PEN SC ×3 (04:54→17:03)
[2023-03-09] MEDS: Metoprolol Tartrate 5 MG/5 ML Vial IV (04:55)
[2023-03-09] MEDS: Propofol 10MG/Ml 1,000 MG/100 ML Bottle 28.7 MG CONT INF (05:01)
[2023-03-09] MEDS: 0.9% Saline Lock 10 ML Syringe IV (05:18)
[2023-03-09 05:20] LABS: Bedside Glucose 157 mg/dL (74-106)
[2023-03-09] MEDS: TITRATION PARAMETER CHANGE 1 EACH IV (05:20)
[2023-03-09 05:57] LABS: Phosphorus 4.1 mg/dL (2.5-4.9)
[2023-03-09] MEDS: fentaNYL drip 100 ML 12.5 MCG CONT INF (06:09)
[2023-03-09] MEDS: Vancomycin IV 1,000 MG/200 ML BAG 200 MG IV ×3 (06:10→22:33)
--- NOTE | 2023-03-09 07:08 | RAD_ITS ---
INDICATION: Respiratory Failure EXAMINATION/TECHNIQUE: X-RAY - XR Chest 1 View AP portable. 7:26 AM COMPARISON: 03/02/2023 FINDINGS: LINES/DEVICES: Tip of the endotracheal tube is 5 cm above the lucila. NG tube tip in the stomach. PICC from left brachial approach tip in the region of the SVC/right atrial junction which was not present on the prior. LUNGS: Opacities at the lung bases, decreased compared to prior. Small residual left pleural effusion. No pneumothorax. MEDIASTINUM: Unremarkable. CARDIAC SILHOUETTE: Not enlarged. BONES AND SOFT TISSUES: No acute abnormalities. RAD/Chest 1 View (Portable) IMPRESSION: Bibasilar opacities and small left pleural effusion overall decreased compared to the prior. This may represent residual or recurrent edema or pneumonia. Electronically Signed: Penny Jamison MD at 7:41 EST ,
--- NOTE | 2023-03-09 07:16 | PN.CC_ITS ---
Assessment & Plan Assessment/Plan (1) Acute hypoxic respiratory failure: PLAN: Plan RECOMMENDATIONS: 1. Continue to wean FiO2 and PEEP to maintain oxygen saturations at or above 90%. 2. Continue tube feeding as tolerated. 3. Continue current sedation regimen including Seroquel. Attempt to wean propofol. 4. Ongoing diuresis as tolerated by hemodynamics and renal function. 5. Continue scheduled bronchodilators. 6. Continue systemic anticoagulation with Eliquis. 7. Antimicrobials to complete 10 days of therapy. 8. Continue appropriate GI prophylaxis. IMPRESSIONS: 1. Acute hypoxemic respiratory failure The patient was initially intubated in the setting of worsening hypoxemia and profound agitation secondary to acute alcohol withdrawal. He remains significantly overall net positive from a volume status for the hospitalization. In addition, the patient had evidence of MRSA pneumonia. The patient has remained on appropriate antimicrobial therapy, which will be continued to complete 10 days of therapy. In the interim, the patient will remain on assist control mode mechanical ventilation. Plan to continue attempts at volume optimization as tolerated by hemodynamics and renal function. 2. Acute alcohol withdrawal The patient had severe DTs, despite phenobarbital taper. Plan to continue current sedation regimen. 3. Cardiomyopathy/heart failure with reduced ejection fraction Continue current supportive measures along with diuretics as tolerated. The patient does remain anticoagulated with Eliquis therapy. 4. Thrombocytosis Most likely reactive in nature. The patient was seen in consultation by hematology who felt that the thrombocytosis was consistent with an acute phase reaction plus delay in all platelet clearance postsplenectomy. 5. History of diabetes mellitus/obstructive sleep apnea/NICOLA D/hypertension/tobacco dependency in remission/opioid induced obstipation Complicates care, management, recovery and prognosis. Continue home medications as indicated. Continue tube feeding as tolerated. TIME: 46 minutes of critical care time, independent of procedures, was spent addressing the patient's acute hypoxemic respiratory failure, acute alcohol wi thdrawal, cardiomyopathy, thrombocytosis, review of all data and collaboration with care team. Subjective Subjective The patient was seen and examined at the bedside this morning. Events from the last 24 hours have been reviewed. The patient continues to have low-grade fevers with tenuous hemodynamics. He is now documented to be overall net +10.5 L for the hospitalization. He remains sedated on a combination of propofol, fentanyl, Precedex and Seroquel. Platelet count has risen to 897,000. There are plans for a family meeting this morning to discuss overall goals of care, including the potential need for tracheostomy and PEG tube placement. I personally met with the patient's family this morning, including his mother, significant other and son regarding overall prognosis and goals of care this morning. I explained to them my feeling that we should attempt to optimize the patient is much as possible over the next 24 hours and then attempt a trial of extubation tomorrow morning. If the patient does not do well from a respiratory perspective, he would then be reintubated with plans to proceed with tra cheostomy and PEG tube placement. The family is all in agreement with this plan. I did call and speak with Dr. Early of ENT, who indicated that he would be able to provide a tracheostomy, if needed. Objective Data Objective Data The patient's most recent lab work, culture data and imaging studies have all been personally reviewed. Surface echocardiogram demonstrated mild concentric LVH with an ejection fraction of 40%. Pulmonary artery systolic pressure was estimated to be 44 mmHg. Sputum culture dated February 26 was positive for MRSA. Vital Signs: Vital Signs Temp Pulse Resp BP Pulse Ox O2 Del Method O2 Flow Rate 100.4 F H 60 13 79/62 L 95 Mechanical Ventilator 50 03/09/23 06:00 03/09/23 06:00 03/09/23 06:00 03/09/23 06:00 03/09/23 06:00 03/09/23 06:00 02/26/23 12:00 FiO2 55 03/09/23 06:00 Oxygen Flow Rate (L/min) 50 Oxygen Delivery Method Mechanical Ventilator Weight: 234 lb 5.622 oz Body Mass Index (BMI) 32.6 Intake & Output: Intake and Output for Last 24 Hours 03/07/23 03/08/23 03/09/23 23:59 23:59 23:59 Intake Total 3731.87 / 3805.87 4725.17 / 4798.37 673.58 / 673.58 Output Total 6700 / 6700 5450 / 5450 950 / 950 Balance -2968.13 / -2894.13 -724.83 / -651.63 -276.42 / -276.42 Lab / Micro Data Attestation: I reviewed the patient's lab results. 03/09/23 03:38 03/09/23 03:38 Labs: Laboratory Results - last 24 hr 03/07/23 05:40: Diff Path Review Reviewed 03/08/23 02:41: Diff Path Review Reviewed 03/08/23 11:00: POC Glucose 203 H 03/08/23 16:59: POC Glucose 202 H 03/08/23 22:21: POC Glucose 202 H 03/09/23 03:38: WBC 13.5 H, RBC 4.13 L, Hgb 12.2 L, Hct 37.6 L, MCV 91.0, MCH 29.5, MCHC 32.4, RDW Std Deviation 45.8 H, RDW Coeff of Eliezer 13.6, Plt Count 897 H*, MPV 9.8, Immature Gran % (Auto) 0.800, Neut % (Auto) 71.5 H, Lymph % (Auto) 14.3 L, Beauregard % (Auto) 10.3 H, Eos % (Auto) 2.0, Baso % (Auto) 1.1 H, Absolute Neuts (auto) 9.6 H, Absolute Lymphs (auto) 1.93, Nucleated RBC % 0, Differential Comment SCANNED, Diff Path Review July, Sodium 136, Potassium 3.8, Chloride 97 L, Carbon Dioxide 34.0 H, Anion Gap 5, BUN 26 H, Creatinine 0.77, Estim Creat Clear Calc 120.88, Est GFR (MDRD) Af Amer 136, Est GFR (MDRD) Non-Af 112, BUN/Creatinine Ratio 33.6 H, Glucose 206 H, Calcium 9.6, Phosphorus 4.1, Magnesium 2.0 03/09/23 04:53: POC Glucose 157 H Micro: Microbiology 03/02/23 11:00 Blood Culture (Wb) - Right Hand Blood Culture - Final No growth in 5 days. 03/02/23 10:54 Blood Culture (Wb) - Left Hand Blood Culture - Final No growth in 5 days. 02/26/23 12:45 Sputum, Induced/Lukens Gram Stain - Final 02/26/23 12:45 Sputum, Induced/Lukens Respiratory Culture - Final Meth. resistant Staph. aureus 02/26/23 09:15 Nasal Secretion SARS-CoV-2 Antigen (Rapid) - Final Physical Exam Const Constitutional Narrative: Intubated, sedated and mechanically ventilated. HEENT normocephalic and head/scalp atraumatic Mouth: endotracheal tube in place and OG tube in place Eyes PERRL, EOMs intact bilaterally and conjunctivae normal Neck supple General: trachea midline Chest inspection of chest normal Resp normal respiratory effort Auscultation: Negative for rales, rhonchi or wheezes Cardio regular rate and regular rhythm GI normal to inspection, nondistended, normoactive bowel sounds Extremity Extremity Narrative: Right midfoot amputation. Improving lower extremity edema. Skin no rashes or lesions noted Neuro moves all extremities and no focal motor deficits Sensorium / Orientation: sedated on vent Charges/Coding Procedures Hospitalists Procedures: 96152 Critial Care 1st Hr
[2023-03-09] MEDS: dexMEDEtomidine 1,000 MCG in 0.9% Normal Saline (250mL Bag) 240 ML 39.9 MCG CONT INF ×3 (08:09→20:33)
[2023-03-09] MEDS: QUEtiapine 100 MG Tablet PO ×2 (08:10→20:49)
[2023-03-09] MEDS: Fenofibrate 145 MG Tablet GT (08:10)
[2023-03-09] MEDS: metOLazone 5 MG Tablet PO (08:10)
[2023-03-09] MEDS: Chlorhexidine 15 ML PO ×2 (08:10→20:48)
[2023-03-09] MEDS: APIXABAN 5 MG TABLET PO ×2 (08:10→20:48)
[2023-03-09] MEDS: Potassium Chloride Oral Soln 20 MEQ/15 ML UDC 40 MEQ PO ×2 (08:10→17:04)
[2023-03-09] MEDS: Propofol 10MG/Ml 1,000 MG/100 ML Bottle 6.4 MG CONT INF (10:10)
[2023-03-09] MEDS: Pantoprazole Sodium 40 MG in 0.9% Normal Saline (100mL MB+) 100 ML 330 MG IV (10:11)
--- NOTE | 2023-03-09 10:56 | CASEMGMT ---
Addendum entered by Traci Nam 03/09/23 12:10: Social Work Return fax from [facility]. Pt does not have advance directives on file at [facility]. SCOUT updated pt's mother and requested that if pt's brother Bill has a copy of documents that they be brought in to the hospital. POWER Larson Original Note: Social Work Family meeting held to discuss goals of care. In attendance: Son Karri, Mother Reanna, Father Chace, Significant Other Carin and Ex Jocelyne. Dr. Sadler, Marcelina RN, and this lyric writer. Medical updated given and options moving forward explained. Family questions answered and family plans to proceed with extubation and if unsuccessful, reintubation with trach, peg and transfer to LTACH will be planned. SCOUT spoke with family regarding self pay status. Family states pt has been employed by [employer] for over a year and has employer sponsored insurance through [employer] [facility]. Significant Other called [employer] Rafia who confirms pt's insurance is current. Copy of card emailed to the worker. SCOUT updated and faxed card to registration. Family state that pt completed a HCPOA while at [facility]. SCOUT Faxed a request for these documents to [facility]. RNCM updated that pt may need LTACH. SCOUT will continue to follow for support and discharge planning. POWER Larson
[2023-03-09] MEDS: Insulin Glargine-YFGN 100 UNIT/ML Pen 48 UNIT SC ×2 (11:15→22:33)
[2023-03-09 11:39] LABS: Bedside Glucose 194 mg/dL (74-106)
[2023-03-09] MEDS: fentaNYL drip 100 ML 20 MCG CONT INF ×3 (12:15→22:07)
--- NOTE | 2023-03-09 13:35 | PN_ITS ---
Subjective Subjective Patient seen and examined. His significant other was by his bedside. He remains intubated. He was more alert today; RASS score is 0. Unable to do review of systems. Objective Data Objective Data Vital Signs: Vital Signs Temp Pulse Resp BP Pulse Ox O2 Del Method O2 Flow Rate 100 F H 69 14 102/81 H 95 Mechanical Ventilator 50 03/09/23 12:00 03/09/23 12:54 03/09/23 12:54 03/09/23 12:00 03/09/23 12:54 03/09/23 12:00 02/26/23 12:00 FiO2 50 03/09/23 12:54 Oxygen Flow Rate (L/min) 50 Oxygen Delivery Method Mechanical Ventilator Weight: 234 lb 5.622 oz Body Mass Index (BMI) 32.6 Intake & Output: Intake and Output for Last 24 Hours 03/07/23 03/08/23 03/09/23 23:59 23:59 23:59 Intake Total 3731.87 / 3805.87 4725.17 / 4798.37 1532.74 / 1532.74 Output Total 6700 / 6700 5450 / 5450 2400 / 2400 Balance -2968.13 / -2894.13 -724.83 / -651.63 -867.26 / -867.26 Lab / Micro Data 03/09/23 03:38 03/09/23 03:38 Labs: Laboratory Results - last 24 hr 03/08/23 16:59: POC Glucose 202 H 03/08/23 22:21: POC Glucose 202 H 03/09/23 03:38: WBC 13.5 H, RBC 4.13 L, Hgb 12.2 L, Hct 37.6 L, MCV 91.0, MCH 29.5, MCHC 32.4, RDW Std Deviation 45.8 H, RDW Coeff of Eliezer 13.6, Plt Count 897 H*, MPV 9.8, Immature Gran % (Auto) 0.800, Neut % (Auto) 71.5 H, Lymph % (Auto) 14.3 L, Bell % (Auto) 10.3 H, Eos % (Auto) 2.0, Baso % (Auto) 1.1 H, Absolute Neuts (auto) 9.6 H, Absolute Lymphs (auto) 1.93, Nucleated RBC % 0, Differential Comment SCANNED, Diff Path Review May foll, Sodium 136, Potassium 3.8, Chloride 97 L, Carbon Dioxide 34.0 H, Anion Gap 5, BUN 26 H, Creatinine 0.77, Estim Creat Clear Calc 120.88, Est GFR (MDRD) Af Amer 136, Est GFR (MDRD) Non-Af 112, BUN/Creatinine Ratio 33.6 H, Glucose 206 H, Calcium 9.6, Phosphorus 4.1, Magnesium 2.0 03/09/23 04:53: POC Glucose 157 H 03/09/23 11:14: POC Glucose 194 H Micro: Microbiology 03/02/23 11:00 Blood Culture (Wb) - Right Hand Blood Culture - Final No growth in 5 days. 03/02/23 10:54 Blood Culture (Wb) - Left Hand Blood Culture - Final No growth in 5 days. 02/26/23 12:45 Sputum, Induced/Lukens Gram Stain - Final 02/26/23 12:45 Sputum, Induced/Lukens Respiratory Culture - Final Meth. resistant Staph. aureus 02/26/23 09:15 Nasal Secretion SARS-CoV-2 Antigen (Rapid) - Final Radiography Diagnostic Testing: Radiology Impression Chest X-Ray 03/09/23 07:08 IMPRESSION: Bibasilar opacities and small left pleural effusion overall decreased compared to the prior. This may represent residual or recurrent edema or pneumonia. Electronically Signed: Penny Jamison MD at 7:41 EST Reading Location ID and State: [address] [place] [address] Tel , Service support , Physical Exam Const no apparent distress and well nourished Constitutional Narrative: intubated, sedated, RASS score is 0 Orientation / Consciousness: confused HEENT normocephalic, head/scalp atraumatic and moist oral mucous membranes Eyes PERRL, EOMs intact bilaterally and conjunctivae normal Neck no lymphadenopathy and supple Lymph Lymphatic: no lymphadenopathy noted Resp Resp Narrative: intubated, sedated, diminished breath sounds bibasally, no wheezes or crackles. Auscultation: crackles; Negative for rales, rhonchi or wheezes Cardio regular rate, regular rhythm, S1 normal heart sound, S2 normal heart sound, no murmurs, no rub, no gallops and no clicks GI normal to inspection, nondistended, normoactive bowel sounds, soft to palpation, non-tender and non-distended GI Narrative: Extremity normal capillary refill and no clubbing, cyanosis or edema Extremity Narrative: Right transmetatarsal amputation General Extremity: no tenderness to palpation of joints or extremities Skin General Skin Exam: no breakdown Neuro moves all extremities Neuro Narrative: intubated, sedated, RASS score is 0 Psych Psych Narrative: Unable to assess due to intubation and sedation Assessment & Plan Assessment/Plan (1) Staphylococcus aureus pneumonia: (2) Acute hypoxic respiratory failure: (3) Metabolic encephalopathy: PLAN: Plan #Acute hypoxic respiratory failure due to acute HFrEF and MRSA pneumonia * still remains intubated. * critical care on board * ID and critical care on board. on IV vancomycin * also being diuresed as he is fluid overloaded. metolazone added on today * has failed spontaneous breathing trials. * sputum cultures grew MRSA. blood cultures negative after 48 hours. * critical care having a meeting with family today to determine if they want him to have a trach and PEG * #Acute metabolic encephalopathy due to Delirium tremens from severe alcohol withdrawal * on precedex drip * has completed a phenobarbital taper. * critical care on board * on thiamine and folic acid * #THrombocytosis * platelets are up to >840 * Been trending upwards. Hematology consulted; per hematology, it is thought to be due to decreased platelet clearance in the setting of acute illness and patient's splenectomy. * #Atrial fibrillation * thought to be due to alcohol * on IV metoprolol * now in normal sinus rhythm * to resume carvedilol once he is extubated * on eliquis * #Type 2 diabetes mellitus * on high dose sliding scale * jardiance and metformin on hold * A2C is 10.9 * on lantus 48 units BID * #Hypertension * resolved. HCTZ and amlodipine on hold, as well as lisinopril * #Hyperlipidemia: on statin #GERD: on PPI #History of CASE; not compliant with CPAP #Osteoarthritis: on tylenol prn. meloxicam held #DVT prophylaxis; on eliquis Total time spent on evaluation and management of patient, reviewing chart and specialist notes, discussion with nursing and ancillary staff as well as documentation: 40 mins Charges/Coding Visit Charges Inpatient E&M: 37706 Subs Hosp L3
[2023-03-09] MEDS: Vital High Protein 1,000 ML 55 ML GT (14:18)
[2023-03-09] MEDS: Propofol 10MG/Ml 1,000 MG/100 ML Bottle 9.6 MG CONT INF (17:04)
[2023-03-09 17:31] LABS: Bedside Glucose 171 mg/dL (74-106)
[2023-03-09] MEDS: Senna/Docusate Sodium 1 Tablet 2 TABLET GT (20:49)
[2023-03-09 22:57] LABS: Bedside Glucose 126 mg/dL (74-106)
[2023-03-10] VITALS (30 sets, daily range): BP systolic 82–155; BP diastolic 54–93; PULSE 69–96; RESP 12–20; TEMP 36–38.3; O2SAT 86–98; BMI 31.6
[2023-03-10] MEDS: Propofol 10MG/Ml 1,000 MG/100 ML Bottle 9.6 MG CONT INF (00:17)
[2023-03-10] MEDS: Ipratropium/Albuterol Sulfate 3 ML AMPUL.NEB INHALATION ×4 (02:07→18:33)
[2023-03-10] MEDS: dexMEDEtomidine 1,000 MCG in 0.9% Normal Saline (250mL Bag) 240 ML 39.9 MCG CONT INF (02:49)
[2023-03-10 03:15] LABS: Absolute Lymphocyte Count 2.21 X10^3/uL (0.83-4.51); Absolute Neutrophil Count 9.3 X10^3/uL (2.0-7.7); Basophil# 0.15 X10^3/uL; Basophil% 1.1 % (0-1); Eosinophil# 0.25 X10^3/uL; Eosinophils% 1.8 % (0-5); Hematocrit 38.3 % (40-54); Hemoglobin 12.4 g/dL (13.0-16.5); Lymphocyte # 2.21 X10^3/ul (0.83-4.51); Lymphocyte % 16.2 % (19-41); Mean Corp Hgb Conc 32.4 g/dL (32-36); Mean Corpuscular Hgb 29.3 pg (27.0-32.0); Mean Corpuscular Volume 90.5 fL (80-94); Mean Platelet Vol. 9.9 fl (6.2-12.0); Monocyte# 1.61 X10^3/uL; Monocyte% 11.8 % (0-10); NRBC Flagged by Analyzer 0 % (0-5); Neutrophil # 9.34 X10^3/uL (2.7-7.7); Neutrophil % 68.4 % (47-70); POSITIVE COUNT YES; POSITIVE DIFFERENTIAL YES; RBC Distribution Width CV 13.4 % (11.6-14.6); RBC Distribution Width SD 44.7 fl (35.1-43.9); Red Blood Count 4.23 M/mm3 (4.6-6.2); White Blood Count 13.7 K/mm3 (4.4-11.0)
[2023-03-10 03:21] LABS: Differential Indicated SCAN CRITERIA MET; Platelet Count 954 K/mm3 (150-450)
[2023-03-10] MEDS: CHLORHEXIDINE GLUC 2% CLOTH 1 EACH TOWELETTE TOPICAL (03:23)
[2023-03-10] MEDS: 0.9% Saline Lock 10 ML Syringe IV ×2 (03:23→15:55)
[2023-03-10 03:27] LABS: Anion Gap 6 (5-15); BUN 28 mg/dL (7-18); BUN/Creat Ratio 38.1 RATIO (10-20); Chloride 94 mmol/L (98-107); Creatinine, Serum 0.74 mg/dL (0.70-1.30); EST Glomerular Filtration Rate 119 mL/min (>60); Est Glom Filt Rate - Afr Amer 144 mL/min (>60); Estimated Creatinine Clearance 125.78 ml/min; Glucose 123 mg/dL (74-106); Potassium 3.5 mmol/L (3.5-5.1); Sodium Level 137 mmol/L (136-145)
[2023-03-10 03:32] LABS: CPK Total, Creatine Kinase 87 U/L (39-308); Triglycerides 144 mg/dL
[2023-03-10 03:53] LABS: Differential Comment SCANNED; Platelet Estimate MKD INC (ADEQ); Reactive Lymphocyte 2+
[2023-03-10] MEDS: Furosemide 40 MG/4 ML Vial IV ×3 (04:47→20:42)
[2023-03-10 05:08] LABS: Bedside Glucose 106 mg/dL (74-106)
--- NOTE | 2023-03-10 06:35 | PN.CC_ITS ---
Assessment & Plan Assessment/Plan (1) Acute hypoxic respiratory failure: PLAN: Plan RECOMMENDATIONS: 1. Proceed with extubation. 2. Once extubated, transition to heated high flow oxygen and wean FiO2 to maintain saturations at or above 90%. 3. Continue Seroquel as ordered. 4. Continue diuresis as tolerated by hemodynamics and renal function. 5. Continue scheduled bronchodilators. 6. Continue systemic anticoagulation with Eliquis. 7. Obtain speech therapy evaluation prior to consideration for advancement of diet. 8. Aggressive PT/OT. 9. Encourage incentive spirometer use and mobilize patient as tolerated. IMPRESSIONS: 1. Acute hypoxemic respiratory failure The patient was initially intubated in the setting of worsening hypoxemia and profound agitation secondary to acute alcohol withdrawal. The patient was found to have an MRSA pneumonia, for which he successfully completed 10 days of antimicrobial therapy. The patient was volume positive for the hospitalization and has been responding appropriately to aggressive diuretics. Given that he passed his spontaneous breathing trial, we will plan to proceed with extubation this morning. The patient will be transitioned to heated high flow oxygen following extubation, with FiO2 weaned to maintain saturations at or above 90%. He will remain on scheduled bronchodilators and diuretics, as tolerated by hemodynamics and renal function. The patient will require evaluation by speech therapy prior to consideration for advancement of diet. 2. Cardiomyopathy/heart failure with reduced ejection fraction Continue current supportive measures along with diuretics as tolerated. The patient does remain anticoagulated with Eliquis therapy. 3. Thrombocytosis Most likely reactive in nature. The patient was seen in consultation by hematology who felt that the thrombocytosis was consistent with an acute phase reaction plus delay in all platelet clearance postsplenectomy. 4. History of diabetes mellitus/obstructive sleep apnea/GERD/hypertension/tobacco dependency in remission/opioid induced obstipation Complicates care, management, recovery and prognosis. Continue home medications as indicated. Speech therapy to evaluate the patient prior to advancement of diet. Recommend aggressive PT/OT. TIME: 38 minutes of critical care time, independent of procedures, was spent addressing the patient's acute hypoxemic respiratory failure, acute alcohol withdrawal, cardiomyopathy, thrombocytosis, review of all data and collaboration with care team. Subjective Subjective The patient was seen and examined at the bedside this morning. Events from the last 24 hours have been reviewed. The patient did well overnight from a respiratory perspective. He was able to be weaned to an FiO2 of 45% and PEEP of 5. The patient actually did pretty well this morning on his spontaneous breathing trial. Therefore, he was successfully extubated to heated high flow oxygen. The patient is documented to be overall net +7.6 L for the hospitalization. He remains on scheduled diuretics and has been intermittently receiving metolazone as well. Platelet count remains elevated at 954,000. Objective Data Objective Data The patient's most recent lab work, culture data and imaging studies have all been personally reviewed. Surface echocardiogram demonstrated mild concentric LVH with an ejection fraction of 40%. Pulmonary artery systolic pressure was estimated to be 44 mmHg. Sputum culture dated February 26 was positive for MRSA. Vital Signs: Vital Signs Temp Pulse Resp BP Pulse Ox O2 Del Method O2 Flow Rate 100.5 F H 71 20 H 96/73 95 Mechanical Ventilator 50 03/10/23 06:00 03/10/23 06:00 03/10/23 06:00 03/10/23 06:00 03/10/23 06:00 03/10/23 06:00 02/26/23 12:00 FiO2 45 03/10/23 06:00 Oxygen Flow Rate (L/min) 50 Oxygen Delivery Method Mechanical Ventilator Weight: 225 lb 12.054 oz Body Mass Index (BMI) 31.6 Intake & Output: Intake and Output for Last 24 Hours 03/08/23 03/09/23 03/10/23 23:59 23:59 23:59 Intake Total 4725.17 / 4798.37 3489.98 / 3539.78 1383.50 / 1383.50 Output Total 5450 / 5450 6400 / 6400 1750 / 1750 Balance -724.83 / -651.63 -2910.02 / -2860.22 -366.50 / -366.50 Lab / Micro Data Attestation: I reviewed the patient's lab results. 03/10/23 03:00 03/10/23 03:00 Labs: Laboratory Results - last 24 hr 03/09/23 11:14: POC Glucose 194 H 03/09/23 17:02: POC Glucose 171 H 03/09/23 22:32: POC Glucose 126 H 03/10/23 03:00: WBC 13.7 H, RBC 4.23 L, Hgb 12.4 L, Hct 38.3 L, MCV 90.5, MCH 29.3, MCHC 32.4, RDW Std Deviation 44.7 H, RDW Coeff of Eliezer 13.4, Plt Count 954 H*, MPV 9.9, Immature Gran % (Auto) 0.700, Neut % (Auto) 68.4, Lymph % (Auto) 16.2 L, [place] % (Auto) 11.8 H, Eos % (Auto) 1.8, Baso % (Auto) 1.1 H, Absolute Neuts (auto) 9.3 H, Absolute Lymphs (auto) 2.21, Nucleated RBC % 0, Differential Comment SCANNED, Diff Path Review July, Reactive Lymphocytes 2+, Platelet Estimate MKD INC, Sodium 137, Potassium 3.5, Chloride 94 L, Carbon Dioxide 37.0 H, Anion Gap 6, BUN 28 H, Creatinine 0.74, Estim Creat Clear Calc 125.78, Est GFR (MDRD) Af Amer 144, Est GFR (MDRD) Non-Af 119, BUN/Creatinine Ratio 38.1 H, Glucose 123 H, Calcium 10.0, Total Creatine Kinase 87, Triglycerides 144 03/10/23 04:46: POC Glucose 106 Micro: Microbiology 03/02/23 11:00 Blood Culture (Wb) - Right Hand Blood Culture - Final No growth in 5 days. 03/02/23 10:54 Blood Culture (Wb) - Left Hand Blood Culture - Final No growth in 5 days. 02/26/23 12:45 Sputum, Induced/Lukens Gram Stain - Final 02/26/23 12:45 Sputum, Induced/Lukens Respiratory Culture - Final Meth. resistant Staph. aureus 02/26/23 09:15 Nasal Secretion SARS-CoV-2 Antigen (Rapid) - Final Radiography Diagnostic Testing: Radiology Impression Chest X-Ray 03/09/23 07:08 IMPRESSION: Bibasilar opacities and small left pleural effusion overall decreased compared to the prior. This may represent residual or recurrent edema or pneumonia. Electronically Signed: Penny Jamison MD at 7:41 EST , Physical Exam Const Constitutional Narrative: Remains intubated and mechanically ventilated. Doing well on spontaneous breathing trial. HEENT normocephalic and head/scalp atraumatic Mouth: endotracheal tube in place and OG tube in place Eyes PERRL, EOMs intact bilaterally and conjunctivae normal Neck supple General: trachea midline Chest inspection of chest normal Resp normal respiratory effort Auscultation: Negative for rales, rhonchi or wheezes Cardio regular rate and regular rhythm GI normal to inspection, nondistended, normoactive bowel sounds Extremity Extremity Narrative: Right midfoot amputation. Improving lower extremity edema. Skin no rashes or lesions noted Neuro moves all extremities and no focal motor deficits Neuro Narrative: Able to follow some simple commands. Intermittently restless. Charges/Coding Procedures Hospitalists Procedures: 50288 Critical Care 1st Hr
[2023-03-10] MEDS: fentaNYL drip 100 ML 5 MCG CONT INF (06:58)
[2023-03-10 08:48] LABS: Pathologist Review Reviewed
--- NOTE | 2023-03-10 09:45 | NURSING ---
Precedex is still infusing despite being empty on MAY, RASS 0 Precedex weaned to 1.3 mcg/kg/hr
--- NOTE | 2023-03-10 10:17 | PN_ITS ---
Subjective Subjective Patient seen and examined. His mother, significant other and son were by his bedside. He was successfully extubated this morning to high flow nasal canula. He had no active complaints and denied any fever, chills, chest pain, palpitations, dizziness, nausea, vomiting or any other symptoms. Review of systems is otherwise negative. Objective Data Objective Data Vital Signs: Vital Signs Temp Pulse Resp BP Pulse Ox O2 Del Method O2 Flow Rate 100.8 F H 79 16 115/86 H 93 Airvo 60 03/10/23 10:00 03/10/23 10:00 03/10/23 10:00 03/10/23 10:00 03/10/23 10:00 03/10/23 10:00 03/10/23 10:00 FiO2 60 03/10/23 10:00 Oxygen Flow Rate (L/min) 60 Oxygen Delivery Method Airvo Weight: 225 lb 12.054 oz Body Mass Index (BMI) 31.6 Intake & Output: Intake and Output for Last 24 Hours 03/08/23 03/09/23 03/10/23 23:59 23:59 23:59 Intake Total 4725.17 / 4798.37 3489.98 / 3539.78 1518.66 / 1518.66 Output Total 5450 / 5450 6400 / 6400 1750 / 1750 Balance -724.83 / -651.63 -2910.02 / -2860.22 -231.34 / -231.34 Lab / Micro Data 03/10/23 03:00 03/10/23 03:00 Labs: Laboratory Results - last 24 hr 03/09/23 03:38: Diff Path Review Reviewed 03/09/23 11:14: POC Glucose 194 H 03/09/23 17:02: POC Glucose 171 H 03/09/23 22:32: POC Glucose 126 H 03/10/23 03:00: WBC 13.7 H, RBC 4.23 L, Hgb 12.4 L, Hct 38.3 L, MCV 90.5, MCH 29.3, MCHC 32.4, RDW Std Deviation 44.7 H, RDW Coeff of Eliezer 13.4, Plt Count 954 H*, MPV 9.9, Immature Gran % (Auto) 0.700, Neut % (Auto) 68.4, Lymph % (Auto) 16.2 L, [place] % (Auto) 11.8 H, Eos % (Auto) 1.8, Baso % (Auto) 1.1 H, Absolute Neuts (auto) 9.3 H, Absolute Lymphs (auto) 2.21, Nucleated RBC % 0, Differential Comment SCANNED, Diff Path Review May foll, Reactive Lymphocytes 2+, Platelet Estimate MKD INC, Sodium 137, Potassium 3.5, Chloride 94 L, Carbon Dioxide 37.0 H, Anion Gap 6, BUN 28 H, Creatinine 0.74, Estim Creat Clear Calc 125.78, Est GFR (MDRD) Af Amer 144, Est GFR (MDRD) Non-Af 119, BUN/Creatinine Ratio 38.1 H, Glucose 123 H, Calcium 10.0, Total Creatine Kinase 87, Triglycerides 144 03/10/23 04:46: POC Glucose 106 Micro: Microbiology 03/02/23 11:00 Blood Culture (Wb) - Right Hand Blood Culture - Final No growth in 5 days. 03/02/23 10:54 Blood Culture (Wb) - Left Hand Blood Culture - Final No growth in 5 days. 02/26/23 12:45 Sputum, Induced/Lukens Gram Stain - Final 02/26/23 12:45 Sputum, Induced/Lukens Respiratory Culture - Final Meth. resistant Staph. aureus 02/26/23 09:15 Nasal Secretion SARS-CoV-2 Antigen (Rapid) - Final Physical Exam Const no apparent distress and well nourished Constitutional Narrative: extubated, communicative Orientation / Consciousness: confused HEENT normocephalic, head/scalp atraumatic and moist oral mucous membranes Eyes PERRL, EOMs intact bilaterally and conjunctivae normal Eyes Narrative: No scleral icterus Neck no lymphadenopathy and supple Lymph Lymphatic: no lymphadenopathy noted Resp Resp Narrative: extubated, diminished breath sounds bibasally, few crackles. NO wheezing. On 60L of oxygen by hi flow nasal cannula Auscultation: crackles; Negative for rales, rhonchi or wheezes Cardio regular rate, regular rhythm, S1 normal heart sound, S2 normal heart sound, no murmurs, no rub, no gallops and no clicks GI normal to inspection, nondistended, normoactive bowel sounds, soft to palpation, non-tender and non-distended GI Narrative: Extremity normal capillary refill and no clubbing, cyanosis or edema Extremity Narrative: Right transmetatarsal amputation General Extremity: no tenderness to palpation of joints or extremities Skin Skin Narrative: Scattered ecchymotic lesions noted on legs and left buttocks General Skin Exam: no breakdown Neuro CN's II-XII intact bilaterally and moves all extremities Sensorium / Orientation: awake and oriented to place Motor Exam: general weakness Assessment & Plan Assessment/Plan (1) Staphylococcus aureus pneumonia: (2) Acute hypoxic respiratory failure: (3) Metabolic encephalopathy: PLAN: Plan #Acute hypoxic respiratory failure due to acute HFrEF and MRSA pneumonia * extubated this morning to high flow nasal caula at 60L per minute * critical care on board * ID and critical care on board. on IV vancomycin * on IV lasix. * sputum cultures grew MRSA. blood cultures negative after 48 hours. * #Acute metabolic encephalopathy due to Delirium tremens from severe alcohol withdrawal * now off precedex drip * has completed a phenobarbital taper. * critical care on board * on thiamine and folic acid * successfully extubated today * #THrombocytosis * platelets are up to >950 today * Been trending upwards. Hematology consulted; per hematology, it is thought to be due to decreased platelet clearance in the setting of acute illness and patient's splenectomy. * #Atrial fibrillation * thought to be due to alcohol * on IV metoprolol * now in normal sinus rhythm * to resume carvedilol once he is extubated * on eliquis * #Type 2 diabetes mellitus * on high dose sliding scale * jardiance and metformin on hold * A2C is 10.9 * on lantus 48 units BID * #Hypertension * resolved. HCTZ and amlodipine on hold, as well as lisinopril * #Hyperlipidemia: on statin #GERD: on PPI #History of CASE; not compliant with CPAP #Osteoarthritis: on tylenol prn. meloxicam held #DVT prophylaxis; on eliquis Total time spent on evaluation and management of patient, reviewing chart and specialist notes, discussion with nursing and ancillary staff as well as documentation: 42 mins Charges/Coding Visit Charges Inpatient E&M: 67194 [facility] Hosp L3
--- NOTE | 2023-03-10 10:21 | PCM.PN.ID ---
Physical Exam Narrative Off vent, breathing ok, some cough. Const alert and no apparent distress Resp Auscultation: rhonchi Cardio regular rate and regular rhythm GI soft to palpation, non-tender and non-distended Skin no rashes or lesions noted ID ID: Route of nutrition/ use of supplements: [] Nutritional Intake: [] IV Site: [] Mattson Catheter: []
[2023-03-10] MEDS: Pantoprazole Sodium 40 MG in 0.9% Normal Saline (100mL MB+) 100 ML 330 MG IV (10:37)
[2023-03-10] MEDS: Ondansetron 4 MG/2 ML Vial IV (10:41)
--- NOTE | 2023-03-10 11:26 | NURSING ---
Precedex bag dry at approx 1045, not restarted
[2023-03-10] MEDS: dexMEDEtomidine 1,000 MCG in 0.9% Normal Saline (250mL Bag) 240 ML 13.3 MCG CONT INF (13:00)
[2023-03-10 13:58] LABS: Pathologist Review Reviewed
[2023-03-10] MEDS: Insulin Lispro 100 UNIT/ML INSULN.PEN SC (18:04)
[2023-03-10] MEDS: Potassium Chloride Oral Soln 20 MEQ/15 ML UDC 40 MEQ PO (18:04)
[2023-03-10] MEDS: APIXABAN 5 MG TABLET PO (20:42)
[2023-03-10] MEDS: QUEtiapine 100 MG Tablet PO (20:42)
[2023-03-10] MEDS: Insulin Glargine-YFGN 100 UNIT/ML Pen 48 UNIT SC (20:47)
[2023-03-10 21:12] LABS: Bedside Glucose 214 mg/dL (74-106)
[2023-03-10 21:12] LABS: Bedside Glucose 243 mg/dL (74-106)
[2023-03-11] VITALS (18 sets, daily range): BP systolic 107–146; BP diastolic 75–90; PULSE 71–100; RESP 13–18; TEMP 36.6–37.5; O2SAT 85–97; BMI 31.0
[2023-03-11 04:00] LABS: Absolute Lymphocyte Count 1.81 X10^3/uL (0.83-4.51); Absolute Neutrophil Count 7.8 X10^3/uL (2.0-7.7); Basophil# 0.12 X10^3/uL; Basophil% 1.1 % (0-1); Eosinophil# 0.06 X10^3/uL; Eosinophils% 0.5 % (0-5); Hematocrit 38.1 % (40-54); Hemoglobin 12.4 g/dL (13.0-16.5); Lymphocyte # 1.81 X10^3/ul (0.83-4.51); Mean Corp Hgb Conc 32.5 g/dL (32-36); Mean Corpuscular Hgb 29.4 pg (27.0-32.0); Mean Corpuscular Volume 90.3 fL (80-94); Mean Platelet Vol. 9.7 fl (6.2-12.0); Monocyte# 1.43 X10^3/uL; Monocyte% 12.6 % (0-10); NRBC Flagged by Analyzer 0 % (0-5); Neutrophil # 7.82 X10^3/uL (2.7-7.7); Neutrophil % 69.2 % (47-70); POSITIVE COUNT YES; RBC Distribution Width CV 13.2 % (11.6-14.6); RBC Distribution Width SD 43.3 fl (35.1-43.9); Red Blood Count 4.22 M/mm3 (4.6-6.2); White Blood Count 11.3 K/mm3 (4.4-11.0)
[2023-03-11 04:05] LABS: Differential Comment SCANNED; Differential Indicated SCAN CRITERIA MET; Platelet Count 959 K/mm3 (150-450)
[2023-03-11 04:20] LABS: Anion Gap 5 (5-15); BUN 29 mg/dL (7-18); BUN/Creat Ratio 32.3 RATIO (10-20); Calcium,Total 10.5 mg/dL (8.5-10.1); Chloride 93 mmol/L (98-107); EST Glomerular Filtration Rate 95 mL/min (>60); Est Glom Filt Rate - Afr Amer 114 mL/min (>60); Estimated Creatinine Clearance 103.42 ml/min; Glucose 230 mg/dL (74-106); Potassium 3.2 mmol/L (3.5-5.1); Sodium Level 135 mmol/L (136-145)
[2023-03-11] MEDS: Furosemide 40 MG/4 ML Vial IV ×2 (05:58→22:50)
[2023-03-11] MEDS: Ipratropium/Albuterol Sulfate 3 ML AMPUL.NEB INHALATION ×3 (07:46→19:48)
[2023-03-11] MEDS: Insulin Lispro 100 UNIT/ML INSULN.PEN SC ×4 (08:09→22:54)
[2023-03-11] MEDS: Potassium Chloride Oral Soln 20 MEQ/15 ML UDC 40 MEQ PO ×2 (08:09→16:50)
[2023-03-11] MEDS: Insulin Glargine-YFGN 100 UNIT/ML Pen 48 UNIT SC ×2 (08:11→22:55)
[2023-03-11] MEDS: Fenofibrate 145 MG Tablet GT (08:16)
[2023-03-11] MEDS: CHLORHEXIDINE GLUC 2% CLOTH 1 EACH TOWELETTE TOPICAL (08:16)
[2023-03-11] MEDS: APIXABAN 5 MG TABLET PO ×2 (08:17→22:49)
[2023-03-11] MEDS: QUEtiapine 100 MG Tablet PO ×2 (08:17→22:49)
[2023-03-11 08:38] LABS: Bedside Glucose 190 mg/dL (74-106)
[2023-03-11] MEDS: Pantoprazole Sodium 40 MG in 0.9% Normal Saline (100mL MB+) 100 ML 330 MG IV (09:44)
[2023-03-11] MEDS: 0.9% Normal Saline (250mL Bag) 250 ML 15 ML IV (09:44)
[2023-03-11] MEDS: 0.9% Saline Lock 10 ML Syringe IV ×3 (09:44→23:03)
--- NOTE | 2023-03-11 09:46 | CASEMGMT ---
Social Work SW spoke w/pt. Pt is alert, oriented to person and place, not quite yet with time as he thought is was January. Pt came into the hospital in January, was then confused and intubated and just recently extubated. Pt knows his address, all his family members and their names, where he works, the person at work that SW should speak with(Rafia). SW spoke w/pt initially about completing POA papers. Pt is interested in completing POA papers, he is not quite sure if he wants to put his brother or significant other. We spoke about the importance of completing the documents, SW explained without them the decisions would fall to Karri, his son who is 18. Pt asked who made decisions for him during this hospitalization. SW explained to pt that the doctor had a meeting with his family, mother, son, girlfriend and they all made decisions together. Pt states understanding. We also spoke about pt's work, pt is anxious to get back to work, is concerned about his job. SW explained we have a form and will see if physician here or his PCP can complete the form for him. Pt states understanding and does want the form completed. He states to call Rafia at [employer]. SW explained will come back after ICU rounds to complete the POA papers. SW called [employer], nobody answers. SW texted physician to inquire if she would be willing to assist w/the form for pt's work. SCOUT called pt's mother, as she had asked for a brief letter. She asked SW to email it to her--left SW a message and stated that her email is on pt's board in his room. SW cannot read the email, SW left a message for her to call SCOUT Traci with the email so she can send her the letter. SW attempted to go speak w/pt after rounds, pt is now back in bed sound asleep. SW to follow up w/pt regarding LW/POA, and also to speak about discharge options. Pt has not yet walked with therapy, so pt's discharge plan is yet to be determined. SW will continue to follow. BARRINGTON Junior
--- NOTE | 2023-03-11 10:19 | PN_ITS ---
Subjective Subjective Patient seen and examined. He is down to 2 L of oxygen. He is complaining of feeling like he has spiders crawling all over him. He has made hemodynamically stable. Objective Data Objective Data Vital Signs: Vital Signs Temp Pulse Resp BP Pulse Ox O2 Del Method O2 Flow Rate 98 F 86 18 123/83 H 94 Nasal Cannula 2 03/11/23 07:00 03/11/23 07:46 03/11/23 07:46 03/11/23 07:00 03/11/23 07:46 03/11/23 08:00 03/11/23 08:00 FiO2 60 03/10/23 15:00 Oxygen Flow Rate (L/min) 2 Oxygen Delivery Method Nasal Cannula Weight: 221 lb 9.033 oz Body Mass Index (BMI) 31.0 Intake & Output: Intake and Output for Last 24 Hours 03/09/23 03/10/23 03/11/23 23:59 23:59 23:59 Intake Total 3489.98 / 3539.78 1996.41 / 1998. 365.28 / 365.28 Output Total 6400 / 6400 2750 / 2750 325 / 325 Balance -2910.02 / -2860.22 -752.59 / -750.59 40.28 / 40.28 Lab / Micro Data 03/11/23 03:50 03/11/23 03:50 Labs: Laboratory Results - last 24 hr 03/10/23 03:00: Diff Path Review Reviewed 03/10/23 17:57: POC Glucose 214 H 03/10/23 20:46: POC Glucose 243 H 03/11/23 03:50: WBC 11.3 H, RBC 4.22 L, Hgb 12.4 L, Hct 38.1 L, MCV 90.3, MCH 29.4, MCHC 32.5, RDW Std Deviation 43.3, RDW Coeff of Leiezer 13.2, Plt Count 959 H* , MPV 9.7, Immature Gran % (Auto) 0.600, Neut % (Auto) 69.2, Lymph % (Auto) 16.0 L, [place] % (Auto) 12.6 H, Eos % (Auto) 0.5, Baso % (Auto) 1.1 H, Absolute Neuts (auto) 7.8 H, Absolute Lymphs (auto) 1.81, Nucleated RBC % 0, Differential Comment SCANNED, Diff Path Review May foll, Sodium 135 L, Potassium 3.2 L, Chloride 93 L, Carbon Dioxide 37.0 H, Anion Gap 5, BUN 29 H, Creatinine 0.90, Estim Creat Clear Calc 103.42, Est GFR (MDRD) Af Amer 114, Est GFR (MDRD) Non-Af 95, BUN/Creatinine Ratio 32.3 H, Glucose 230 H, Calcium 10.5 H 03/11/23 08:06: POC Glucose 190 H Micro: Microbiology 03/02/23 11:00 Blood Culture (Wb) - Right Hand Blood Culture - Final No growth in 5 days. 03/02/23 10:54 Blood Culture (Wb) - Left Hand Blood Culture - Final No growth in 5 days. 02/26/23 12:45 Sputum, Induced/Lukens Gram Stain - Final 02/26/23 12:45 Sputum, Induced/Lukens Respiratory Culture - Final Meth. resistant Staph. aureus 02/26/23 09:15 Nasal Secretion SARS-CoV-2 Antigen (Rapid) - Final Physical Exam Const alert, oriented x3, no apparent distress and well nourished General Appearance: cooperative HEENT normocephalic, head/scalp atraumatic and moist oral mucous membranes Eyes PERRL, EOMs intact bilaterally and conjunctivae normal Neck no lymphadenopathy and supple Neck Narrative: Neck is short and thick, trachea midline Lymph Lymphatic: no lymphadenopathy noted Resp normal respiratory effort, no retractions, no use of accessory muscles and clear to auscultation bilaterally Resp Narrative: extubated, diminished breath sounds bibasally, few crackles. NO wheezing. On 2L of oxygen by nasal canula Auscultation: crackles; Negative for rales, rhonchi or wheezes Cardio regular rate, regular rhythm, S1 normal heart sound, S2 normal heart sound, no murmurs, no rub, no gallops and no clicks GI normal to inspection, nondistended, normoactive bowel sounds, soft to palpation, non-tender and non-distended GI Narrative: Extremity normal capillary refill and no clubbing, cyanosis or edema Extremity Narrative: Right transmetatarsal amputation General Extremity: no tenderness to palpation of joints or extremities Skin General Skin Exam: no breakdown Neuro CN's II-XII intact bilaterally and moves all extremities Sensorium / Orientation: awake and oriented to place Motor Exam: general weakness Psych thought process normal and cooperative Mood & Affect: flat affect Assessment & Plan Assessment/Plan (1) Staphylococcus aureus pneumonia: (2) Acute hypoxic respiratory failure: (3) Metabolic encephalopathy: PLAN: Plan #Acute hypoxic respiratory failure due to acute HFrEF and MRSA pneumonia * now extubated, on 2L of oxygen. * ID and critical care on board. on IV vancomycin * still on IV lasix. * sputum cultures grew MRSA. blood cultures negative after 48 hours. * #Acute metabolic encephalopathy due to Delirium tremens from severe alcohol withdrawal * now off precedex drip * has completed a phenobarbital taper. * critical care on board * on thiamine and folic acid * successfully extubated yesterday and now on 2L of oxygen * #THrombocytosis * platelets are still elevated, at 959 today * Been trending upwards. Hematology consulted; per hematology, it is thought to be due to decreased platelet clearance in the setting of acute illness and patient's splenectomy. * #Atrial fibrillation * thought to be due to alcohol * on IV metoprolol * now in normal sinus rhythm * will resume carvedilol * on eliquis * #Type 2 diabetes mellitus * on high dose sliding scale * jardiance and metformin on hold * A2C is 10.9 * on lantus 48 units BID * #Hypertension * resolved. HCTZ and amlodipine on hold, as well as lisinopril * #Hyperlipidemia: on statin #GERD: on PPI #History of CASE; not compliant with CPAP #Osteoarthritis: on tylenol prn. meloxicam held #DVT prophylaxis; on eliquis Total time spent on evaluation and management of patient, reviewing chart and specialist notes, discussion with nursing and ancillary staff as well as documentation: 39 mins Charges/Coding Visit Charges Inpatient E&M: 93948 Subs Hosp L2
[2023-03-11] MEDS: Carvedilol 12.5 MG Tablet PO ×2 (10:48→22:49)
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
--- NOTE | 2023-03-11 11:26 | PCM.PN.INT ---
Assessment & Plan Assessment/Plan (1) Acute hypoxic respiratory failure: PLAN: Plan RECOMMENDATIONS: 1. Tolerating nasal cannula at 2 L 2. Continue Seroquel. He has been off Precedex since 4 AM. Continue to hold Precedex. Agitation is much improved 3. Peers to be diuresing well although bicarb is starting to creep up. Will reduce Lasix to 40 twice daily. 4. Continue scheduled bronchodilators 5. Tolerating pur?ed diet. Speech is on board 6. Provide resources given his alcoholism and substance abuse. Social work is on board 7. Obtain speech therapy evaluation prior to consideration for advancement of diet. 8. Aggressive PT/OT. able to sit in the chair today 9. Okay to transfer to [facility] IMPRESSIONS: 1. Acute hypoxemic respiratory failure The patient was initially intubated in the setting of worsening hypoxemia and profound agitation secondary to acute alcohol withdrawal. The patient was found to have an MRSA pneumonia, for which he successfully completed 10 days of antimicrobial therapy. The patient was volume positive for the hospitalization and has been responding appropriately to aggressive diuretics. patient was extubated successfully on 03/10 initially requiring Airvo and weaned down to 2 L nasal cannula 2. Cardiomyopathy/heart failure with reduced ejection fraction Continue current supportive measures along with diuretics as tolerated. The patient remains anticoagulated with Eliquis therapy. 3. Thrombocytosis Most likely reactive in nature. The patient was seen in consultation by hematology who felt that the thrombocytosis was consistent with an acute phase reaction plus delay in all platelet clearance postsplenectomy. 4. History of diabetes mellitus/obstructive sleep apnea/GERD/hypertension/tobacco dependency in remission/opioid induced obstipation Complicates care, management, recovery and prognosis. Continue home medications as indicated. Subjective Subjective no acute events. He was weaned down to 2 L nasal cannula. He is off Precedex since 4 AM Objective Data Objective Data Vital Signs: Vital Signs Temp Pulse Resp BP Pulse Ox O2 Del Method O2 Flow Rate 37.5 C H 95 14 125/81 H 95 Nasal Cannula 2 03/11/23 10:00 03/11/23 10:00 03/11/23 10:00 03/11/23 10:00 03/11/23 10:00 03/11/23 10:00 03/11/23 10:00 FiO2 60 03/10/23 15:00 Oxygen Flow Rate (L/min) 2 Oxygen Delivery Method Nasal Cannula Weight: 100.5 kg Body Mass Index (BMI) 31.0 Intake & Output: Intake and Output for Last 24 Hours 03/09/23 03/10/23 03/11/23 23:59 23:59 23:59 Intake Total 3489.98 / 3539.78 41 / 1998. 381.78 / 381.78 Output Total 6400 / 6400 2750 / 2750 325 / 325 Balance -2910.02 / -2860.22 -752.59 / -750.59 56.78 / 56.78 Lab / Micro Data 03/11/23 03:50 03/11/23 03:50 Labs: Laboratory Results - last 24 hr 03/10/23 03:00: Diff Path Review Reviewed 03/10/23 17:57: POC Glucose 214 H 03/10/23 20:46: POC Glucose 243 H 03/11/23 03:50: WBC 11.3 H, RBC 4.22 L, Hgb 12.4 L, Hct 38.1 L, MCV 90.3, MCH 29.4, MCHC 32.5, RDW Std Deviation 43.3, RDW Coeff of Eliezer 13.2, Plt Count 959 H*, MPV 9.7, Immature Gran % (Auto) 0.600, Neut % (Auto) 69.2, Lymph % (Auto) 16.0 L, [place] % (Auto) 12.6 H, Eos % (Auto) 0.5, Baso % (Auto) 1.1 H, Absolute Neuts (auto) 7.8 H, Absolute Lymphs (auto) 1.81, Nucleated RBC % 0, Differential Comment SCANNED, Diff Path Review July, Sodium 135 L, Potassium 3.2 L, Chloride 93 L, Carbon Dioxide 37.0 H, Anion Gap 5, BUN 29 H, Creatinine 0.90, Estim Creat Clear Calc 103.42, Est GFR (MDRD) Af Amer 114, Est GFR (MDRD) Non-Af 95, BUN/Creatinine Ratio 32.3 H, Glucose 230 H, Calcium 10.5 H 03/11/23 08:06: POC Glucose 190 H Micro: Microbiology 03/02/23 11:00 Blood Culture (Wb) - Right Hand Blood Culture - Final No growth in 5 days. 03/02/23 10:54 Blood Culture (Wb) - Left Hand Blood Culture - Final No growth in 5 days. 02/26/23 12:45 Sputum, Induced/Lukens Gram Stain - Final 02/26/23 12:45 Sputum, Induced/Lukens Respiratory Culture - Final Meth. resistant Staph. aureus 02/26/23 09:15 Nasal Secretion SARS-CoV-2 Antigen (Rapid) - Final Physical Exam Narrative General alert in no acute distress HEENT. Normocephalic atraumatic, pupils equal and reactive Respiratory reduced air entry bilaterally, no wheezing Cardiac S1-S2, regular rate and rhythm GI abdomen soft and nontender MSK no lower extremity edema Skin no rashes Neuro moves all extremities, no dysarthria, no facial droop Charges/Coding Visit Charges Inpatient E&M: 54888 Subs Hosp L3
[2023-03-11] MEDS: Potassium Chloride 10mEq/100mL 10 MEQ/100 ML IV.SOLN. 100 MEQ IV BOLUS (12:32)
[2023-03-11 12:45] LABS: Bedside Glucose 239 mg/dL (74-106)
--- NOTE | 2023-03-11 12:52 | ADDICTION ---
This continuity writer met with PT to plan for d/c and discuss treatment options. PT A+Ox4 and participated actively. Pt reports and identifies a need for changes. PT plans to f/u at [facility] for follow-up outpatient treatment services. Pt did not identify a need for transportation upon d/c.
[2023-03-11 13:24] LABS: Pathologist Review Reviewed
[2023-03-11] MEDS: Magnesium Sulfate 4gm/100mL 4 GM/100 ML IV.SOLN. IV (13:43)
[2023-03-11 17:12] LABS: Bedside Glucose 317 mg/dL (74-106)
[2023-03-11] MEDS: Atorvastatin Calcium 40 MG Tablet PO (22:50)
[2023-03-11 23:24] LABS: Bedside Glucose 303 mg/dL (74-106)
[2023-03-12] VITALS: BP 129/97; PULSE 75; RESP 16; TEMP 36.9; O2SAT 94
[2023-03-12 02:45] VITALS: BMI 30.7
[2023-03-12 05:39] VITALS: BP 115/86; PULSE 72; RESP 16; TEMP 37.2; O2SAT 92
[2023-03-12 06:16] LABS: Bedside Glucose 213 mg/dL (74-106)
[2023-03-12] MEDS: Insulin Lispro 100 UNIT/ML INSULN.PEN SC ×2 (06:50→12:46)
[2023-03-12 07:04] LABS: Absolute Lymphocyte Count 2.75 X10^3/uL (0.83-4.51); Absolute Neutrophil Count 7.8 X10^3/uL (2.0-7.7); Basophil# 0.17 X10^3/uL; Basophil% 1.4 % (0-1); Eosinophil# 0.09 X10^3/uL; Eosinophils% 0.7 % (0-5); Hemoglobin 12.9 g/dL (13.0-16.5); Lymphocyte # 2.75 X10^3/ul (0.83-4.51); Lymphocyte % 22.3 % (19-41); Mean Corp Hgb Conc 32.3 g/dL (32-36); Mean Corpuscular Hgb 29.3 pg (27.0-32.0); Mean Corpuscular Volume 90.7 fL (80-94); Mean Platelet Vol. 9.7 fl (6.2-12.0); Monocyte# 1.44 X10^3/uL; Monocyte% 11.7 % (0-10); NRBC Flagged by Analyzer 0 % (0-5); Neutrophil # 7.79 X10^3/uL (2.7-7.7); Neutrophil % 63.3 % (47-70); POSITIVE COUNT YES; RBC Distribution Width SD 43.3 fl (35.1-43.9); Red Blood Count 4.41 M/mm3 (4.6-6.2); White Blood Count 12.3 K/mm3 (4.4-11.0)
[2023-03-12 07:28] LABS: Anion Gap 4 (5-15); BUN 24 mg/dL (7-18); BUN/Creat Ratio 27.7 RATIO (10-20); Chloride 97 mmol/L (98-107); Creatinine, Serum 0.87 mg/dL (0.70-1.30); EST Glomerular Filtration Rate 98 mL/min (>60); Est Glom Filt Rate - Afr Amer 119 mL/min (>60); Estimated Creatinine Clearance 106.99 ml/min; Glucose 216 mg/dL (74-106); Magnesium 2.2 mg/dL (1.6-2.6); Potassium 3.2 mmol/L (3.5-5.1); Sodium Level 135 mmol/L (136-145)
[2023-03-12 07:34] VITALS: PULSE 88; RESP 20; O2SAT 95
[2023-03-12] MEDS: Ipratropium/Albuterol Sulfate 3 ML AMPUL.NEB INHALATION (07:34)
[2023-03-12 08:53] LABS: Platelet Count 1086 K/mm3 (150-450)
[2023-03-12 08:54] LABS: Differential Indicated SCAN CRITERIA MET
[2023-03-12] MEDS: QUEtiapine 100 MG Tablet PO (10:10)
[2023-03-12] MEDS: Pantoprazole Sodium 40 MG in 0.9% Normal Saline (100mL MB+) 100 ML 330 MG IV (10:10)
[2023-03-12] MEDS: APIXABAN 5 MG TABLET PO (10:10)
[2023-03-12] MEDS: Fenofibrate 145 MG Tablet PO (10:11)
[2023-03-12] MEDS: Insulin Glargine-YFGN 100 UNIT/ML Pen 48 UNIT SC (10:12)
[2023-03-12] MEDS: Carvedilol 12.5 MG Tablet PO (10:12)
[2023-03-12] MEDS: Furosemide 40 MG/4 ML Vial IV (10:16)
[2023-03-12] MEDS: CHLORHEXIDINE GLUC 2% CLOTH 1 EACH TOWELETTE TOPICAL (10:17)
[2023-03-12] MEDS: 0.9% Saline Lock 10 ML Syringe IV (10:19)
[2023-03-12] MEDS: Potassium Chloride Oral Tablet 20 MEQ 40 MEQ PO (10:19)
--- NOTE | 2023-03-12 10:36 | CASEMGMT ---
Social Work SW assisted pt in completing POA document this morning, pt put his girlfriend Carin as POA. He did not complete LW at this time. Copies and original of POA given to pt, and a copy placed on chart. SW also gave pt the blank copy of the living will should he want to complete it at a later date. SW also gave pt the paperwork needed by [facility], directed him to have is primary care doctor complete it. Pt is going to go to a hotel for a couple of weeks, he states his girlfriend needs some time. He states he is going to follow up at [facility] on Tuesday. He states he walked the whole floor today on [facility]. Pt does not need SNF, not wanting HHC. Pt wants to get back to work as soon as possible, and he states he is not going to drink. No further needs are anticipated, pt plans to go to a hotel today, plans to take a taxi there. BARRINGTON Junior
--- NOTE | 2023-03-12 10:40 | CASEMGMT ---
Social Work SW assisted pt in completing POA, he named his girlfriend Carin as POA. LW not completed at this time, pt has the information to complete at a later time should he choose to do so. BARRINGTON Junior
[2023-03-12 12:00] VITALS: BP 123/84; PULSE 84; RESP 16; TEMP 36.7; O2SAT 95
[2023-03-12 12:07] LABS: Differential Comment SCANNED; Platelet Estimate MKD INC (ADEQ)
[2023-03-12 13:11] LABS: Bedside Glucose 428 mg/dL (74-106)
--- NOTE | 2023-03-12 13:57 | PN_ITS ---
Subjective Subjective Patient seen and examined. He feels well. He was on room air. He had no complaints. Review of systems otherwise negative. He has remained hemodynamically stable. He is now awaiting potential placement. Objective Data Objective Data Vital Signs: Vital Signs Temp Pulse Resp BP Pulse Ox O2 Del Method O2 Flow Rate 98.0 F 84 16 123/84 H 95 Room Air 2 03/12/23 12:00 03/12/23 12:00 03/12/23 12:00 03/12/23 12:00 03/12/23 12:00 03/12/23 12:00 03/11/23 10:00 FiO2 60 03/10/23 15:00 Oxygen Flow Rate (L/min) 2 Oxygen Delivery Method Room Air Weight: 219 lb 12.814 oz Body Mass Index (BMI) 30.7 Intake & Output: Intake and Output for Last 24 Hours 03/10/23 03/11/23 03/12/23 23:59 23:59 23:59 Intake Total 1996.41 / 1998.1990.78 / 1990.78 443.5 / 443.5 Output Total 2750 / 2750 525 / 525 Balance -752.59 / -750.59 1466.78 / 1466.78 443.5 / 443.5 Lab / Micro Data 03/12/23 06:54 03/12/23 06:54 Labs: Laboratory Results - last 24 hr 03/11/23 16:48: POC Glucose 317 H 03/11/23 22:54: POC Glucose 303 H 03/12/23 05:44: POC Glucose 213 H 03/12/23 06:54: WBC 12.3 H, RBC 4.41 L, Hgb 12.9 L, Hct 40.0, MCV 90.7, MCH 29.3, MCHC 32.3, RDW Std Deviation 43.3, RDW Coeff of Eliezer 13.0, Plt Count 1086 H*, MPV 9.7, Immature Gran % (Auto) 0.600, Neut % (Auto) 63.3, Lymph % (Auto) 22.3, [place] % (Auto) 11.7 H, Eos % (Auto) 0.7, Baso % (Auto) 1.4 H, Absolute Neuts (auto) 7.8 H, Absolute Lymphs (auto) 2.75, Nucleated RBC % 0, Differential Comment SCANNED, Diff Path Review May foll, Platelet Estimate [employer] INC, Sodium 135 L, Potassium 3.2 L, Chloride 97 L, Carbon Dioxide 34.0 H, Anion Gap 4 L, BUN 24 H, Creatinine 0.87, Estim Creat Clear Calc 106.99, Est GFR (MDRD) Af Amer 119, Est GFR (MDRD) Non-Af 98, BUN/Creatinine Ratio 27.7 H, Glucose 216 H, Calcium 10.0, Magnesium 2.2 03/12/23 12:44: POC Glucose 428 H Micro: Microbiology 03/02/23 11:00 Blood Culture (Wb) - Right Hand Blood Culture - Final No growth in 5 days. 03/02/23 10:54 Blood Culture (Wb) - Left Hand Blood Culture - Final No growth in 5 days. 02/26/23 12:45 Sputum, Induced/Lukens Gram Stain - Final 02/26/23 12:45 Sputum, Induced/Lukens Respiratory Culture - Final Meth. resistant Staph. aureus 02/26/23 09:15 Nasal Secretion SARS-CoV-2 Antigen (Rapid) - Final Physical Exam Const alert, oriented x3, no apparent distress and well nourished General Appearance: cooperative Orientation / Consciousness: confused HEENT normocephalic, head/scalp atraumatic and moist oral mucous membranes Eyes PERRL, EOMs intact bilaterally and conjunctivae normal Eyes Narrative: Neck no lymphadenopathy and supple Lymph Lymphatic: no lymphadenopathy noted Resp normal respiratory effort, normal air movement, no retractions, no use of acces esau muscles and clear to auscultation bilaterally Resp Narrative: extubated, diminished breath sounds bibasally, few crackles. NO wheezing. On room. Auscultation: crackles; Negative for rales, rhonchi or wheezes Cardio regular rate, regular rhythm, S1 normal heart sound, S2 normal heart sound, no murmurs, no rub, no gallops and no clicks Cardio Narrative: Mild sinus bradycardia GI normal to inspection, nondistended, normoactive bowel sounds, soft to palpation, non-tender and non-distended GI Narrative: Extremity normal capillary refill and no clubbing, cyanosis or edema Extremity Narrative: Right transmetatarsal amputation General Extremity: no tenderness to palpation of joints or extremities Skin General Skin Exam: no breakdown Neuro CN's II-XII intact bilaterally and moves all extremities Sensorium / Orientation: awake and oriented to place Motor Exam: strength 5/5 throughout and general weakness Psych thought process normal and cooperative Appearance: appropriate Assessment & Plan Assessment/Plan (1) Staphylococcus aureus pneumonia: (2) Acute hypoxic respiratory failure: (3) Metabolic encephalopathy: PLAN: Plan #Acute hypoxic respiratory failure due to acute HFrEF and MRSA pneumonia * now extubated, on room air. * ID and critical care on board. now off IV vancomycin * still on IV lasix. * sputum cultures grew MRSA. blood cultures negative after 48 hours. * #Acute metabolic encephalopathy due to Delirium tremens from severe alcohol withdrawal * now off precedex drip * has completed a phenobarbital taper. * critical care on board * on thiamine and folic acid * successfully extubated and now on room air. * #THrombocytosis * platelets are still elevated, and have trended even highter to 1086. * Been trending upwards. Hematology consulted; per hematology, it is thought to be due to acute phase reaction plus decreased platelet clearance in the setting of acute illness and patient's splenectomy. * will need to follow up with hematology on outpatient upon discharge. * #Atrial fibrillation * thought to be due to alcohol * on IV metoprolol * now in normal sinus rhythm * on carvedilol * on eliquis * #Type 2 diabetes mellitus * on high dose sliding scale * jardiance and metformin on hold * A2C is 10.9 * on lantus 48 units BID * #Hypertension * resolved. HCTZ and amlodipine on hold, as well as lisinopril * #Hyperlipidemia: on statin #GERD: on PPI #History of CASE; not compliant with CPAP #Osteoarthritis: on tylenol prn. meloxicam held #DVT prophylaxis; on eliquis Total time spent on evaluation and management of patient, reviewing chart and specialist notes, discussion with nursing and ancillary staff as well as documentation: 35 mins Disposition: Patient amenable to possible placement. Case management on board to help facilitate discharge.
--- NOTE | 2023-03-12 16:47 | DS.PCM_ITS ---
Providers Date of Admission: 02/24/23 Date of Discharge: 03/12/23 Primary Care Physician: Dr. Asha Arreaga MD Consultations 02/26/23 12:50 Consult: Toll Line Repairer / Pulmonary Medicine Routine Consulting Provider: [facility] Reason for Consult: Acute hypoxic respiratory failure EMERGENT Consult: No Notified: Yes Date Notified: 02/26/23 Time Notified: 12:50 Method of Notification: Verbal 03/02/23 08:05 Consult: Infectious Disease Routine Consulting Provider: Gilles Palmer Reason for Consult: MRSA Pneumonia EMERGENT Consult: No Notified: Yes Date Notified: 03/02/23 Time Notified: 08:07 Method of Notification: Text 03/08/23 07:20 Consult: Oncology/Hematology Routine Consulting Provider: [facility]) Reason for Consult: Worsening Thrombocytosis EMERGENT Consult: No Notified: Yes Date Notified: 03/08/23 Time Notified: 07:38 Method of Notification: Text Reason For Visit: ALCOHOL WITHDRAWAL, TACHYCARDIA Diagnosis Discharge Diagnosis (1) Staphylococcus aureus pneumonia: Status: Acute Code(s): J15.211 - Pneumonia due to Methicillin susceptible Staphylococcus aureus (2) Acute hypoxic respiratory failure: Status: Acute Code(s): J96.01 - Acute respiratory failure with hypoxia (3) Metabolic encephalopathy: Status: Acute Code(s): G93.41 - Metabolic encephalopathy Plan #Acute hypoxic respiratory failure due to acute HFrEF and MRSA pneumonia * now extubated, on room air. * ID and critical care on board. now off IV vancomycin * still on IV lasix. * sputum cultures grew MRSA. blood cultures negative after 48 hours. * #Acute metabolic encephalopathy due to Delirium tremens from severe alcohol withdrawal * now off precedex drip * has completed a phenobarbital taper. * critical care on board * on thiamine and folic acid * successfully extubated and now on room air. * #THrombocytosis * platelets are still elevated, and have trended even highter to 1086. * Been trending upwards. Hematology consulted; per hematology, it is thought to be due to acute phase reaction plus decreased platelet clearance in the setting of acute illness and patient's splenectomy. * will need to follow up with hematology on outpatient upon discharge. * #Atrial fibrillation * thought to be due to alcohol * on IV metoprolol * now in normal sinus rhythm * on carvedilol * on eliquis * #Type 2 diabetes mellitus * on high dose sliding scale * jardiance and metformin on hold * A2C is 10.9 * on lantus 48 units BID * #Hypertension * resolved. HCTZ and amlodipine on hold, as well as lisinopril * #Hyperlipidemia: on statin #GERD: on PPI #History of CASE; not compliant with CPAP #Osteoarthritis: on tylenol prn. meloxicam held #DVT prophylaxis; on eliquis Total time spent on evaluation and management of patient, reviewing chart and specialist notes, discussion with nursing and ancillary staff as well as documentation: 35 mins Disposition: Patient amenable to possible placement. Case management on board to help facilitate discharge. Medications at Discharge Home Medications compress.stocking,knee,reg,lrg #2 ea 05/18/18 dextroamphetamine-amphetamine ER 50 mg capsule,3 bead,ext release 24hr (Mydayis) 50 mg PO DAILY Adult ADD 01/23/19 blood sugar diagnostic 02/15/20 buprenorphine 10 mcg/hour weekly transdermal patch 1 patch transdermal Q7D 03/26/20 trazodone 100 mg tablet 300 mg PO QHS sleep 04/24/20 pen needle, diabetic 31 gauge x 5/16 (Unifine Pentips) #200 ea 06/16/21 alcohol swabs 4 pad topical .qid Check with primary doctor #200 ea 09/08/21 empagliflozin 25 mg tablet 25 mg PO QAM diabetes #90 tabs 10/20/21 fluticasone propionate 50 mcg/actuation nasal spray,suspension 2 spray intranasal DAILY PRN Congestion #16 grams 10/30/21 albuterol sulfate 90 mcg/actuation aerosol inhaler (ProAir HFA) 1 - 2 puff inhalation Q6H PRN shortness of breath or wheezing #8.5 grams 05/18/22 albuterol sulfate 90 mcg/actuation aerosol inhaler (Ventolin HFA) 2 puff inh alation Q6H PRN shortness of breath or wheezing #8.5 grams 05/18/22 doxazosin 2 mg tablet 2 mg PO QHS blood pressure #90 tabs 05/18/22 meloxicam 15 mg tablet 15 mg PO DAILY PRN pain #30 tabs 05/18/22 blood sugar diagnostic (True Metrix Glucose Test Strip) #100 ea 06/17/22 blood-glucose meter (True Metrix Glucose Meter) #1 ea 06/17/22 lancets 28 gauge (FreeStyle Lancets) #200 ea 06/17/22 flash glucose scanning reader (FreeStyle Frances 2 Saxton) #1 ea 07/12/22 insulin lispro 100 unit/mL subcutaneous pen (Humalog KwikPen (U-100) Insulin) See Rx Instructions .Route .COMPLEX #15 mL 08/02/22 amlodipine 10 mg tablet See Rx Instructions .Route .COMPLEX #30 tabs 01/14/23 atorvastatin 40 mg tablet See Rx Instructions .Route .COMPLEX #30 tabs 01/14/23 fenofibrate nanocrystallized 145 mg tablet See Rx Instructions .Route .COMPLEX #30 tabs 01/14/23 hydrochlorothiazide 25 mg tablet See Rx Instructions .Route .COMPLEX #30 tabs 01/14/23 flash glucose sensor (FreeStyle Frances 2 Sensor kit) #1 ea 02/01/23 insulin degludec 100 unit/mL (3 mL) subcutaneous pen 65 unit (0.65 mL) subcut QHS diabetes 3 months #58.5 mL 02/01/23 pantoprazole 40 mg tablet,delayed release See Rx Instructions .Route .COMPLEX #60 tabs 02/10/23 metformin 500 mg tablet,extended release 24hr (osmotic) 1,000 mg (2 x 500 mg) PO BID diabetes 3 months #360 tabs 02/16/23 Hospital Course Operations None Procedures None Summary of Care Provided Minutes Spent on Discharge: 55 Hospital Course: Patient is a 52-year-old male with a past medical history as outlined was admitted through the ED on 02/24/2023 after being found in an altered mental status by the police. He did not have any clothes on. He had acutely intoxicated. He had a long history of alcohol abuse and drank a significant amount of whiskey, vodka and 4 Montgomery's daily. He was apparently also expressing suicidal ideation. He was admitted to the hospital and placed on phenobarb taper as well as adjunctive meds for symptomatic relief. Patient remained very agitated and was short of breath. He also became very tachycardic with heart rate going up to the 160s and 170s. 2D echo done showed EF of 40% and pulmonary artery systolic pressure of 44 mmHg. Due to significant agitation patient was transferred to the ICU and placed on a Precedex drip. He was eventually intubated due to fluid overload. He was therefore managed for acute hypoxic respiratory failure due to fluid overload and acute alcohol withdrawal as well as heart failure with reduced ejection fraction. He was placed on broad- spectrum antibiotics. Sputum culture was positive for MRSA. Unasyn was therefore discontinued and was continued on vancomycin. Patient had a protracted hospital course and failed multiple spontaneous breathing trials. Patient's family was considering inserting a trach and a PEG. However patient was subsequently able to be extubated. He was weaned down to room air. He was transferred out of the ICU. Repeat blood cultures were negative after 48 hours. He was weaned off the Precedex drip and completed a phenobarb taper. Hospital course was also complicated by significant thrombocytosis with platelets peaking at over thousand. Hematology was consulted and felt that this was likely due to acute phase reaction and also decreased platelets clearance on account of patient's history of splenectomy. Plan is for patient to follow-up with hematology on outpatient basis after discharge. Patient was weaned down to room air as stated and plan was for possible placement. Patient however signed out AGAINST MEDICAL ADVICE on 03/12/2023. Patient was seen on the morning of 03/12/2023. He had stated then that his girlfriend did not want him back in the house. He had however not talked about signing out AMA and was willing to stay until discharge. He had no complaints then. However he subsequently decided to sign out AGAINST MEDICAL ADVICE. Physical Exam Const alert, oriented x3, no apparent distress and well nourished General Appearance: cooperative and comfortable Orientation / Consciousness: awake Exam Limitations: no limitations HEENT normocephalic, head/scalp atraumatic, hearing grossly normal bilaterally and moist oral mucous membranes Mouth: oral and palatal mucosa normal Eyes PERRL, EOMs intact bilaterally and conjunctivae normal Eyes Narrative: Neck no lymphadenopathy and supple Neck Narrative: Neck is short and thick, trachea midline Lymph Lymphatic: no lymphadenopathy noted Resp normal respiratory effort, normal air movement, no retractions, no use of accessory muscles and clear to auscultation bilaterally Cardio regular rate, regular rhythm, S1 normal heart sound, S2 normal heart sound, no murmurs, no rub, no gallops and no clicks GI normal to inspection, nondistended, normoactive bowel sounds, soft to palpation, non-tender and non-distended GI Narrative: Extremity normal capillary refill and no clubbing, cyanosis or edema Extremity Narrative: Right transmetatarsal amputation General Extremity: no tenderness to palpation of joints or extremities Skin General Skin Exam: no breakdown Neuro oriented x3, CN's II-XII intact bilaterally and moves all extremities Sensorium / Orientation: awake, alert, oriented to person and oriented to place Motor Exam: strength 5/5 throughout and general weakness Psych thought process normal and cooperative Appearance: appropriate Mood & Affect: anxious and flat affect Weight / BMI Weight Weight: 219 lb 12.814 oz Body Mass Index (BMI) 30.7 ABG / Lab / Microbiology Data 03/12/23 06:54 03/12/23 06:54 Laboratory: Laboratory Results - last 24 hr 03/11/23 16:48: POC Glucose 317 H 03/11/23 22:54: POC Glucose 303 H 03/12/23 05:44: POC Glucose 213 H 03/12/23 06:54: WBC 12.3 H, RBC 4.41 L, Hgb 12.9 L, Hct 40.0, MCV 90.7, MCH 29.3, MCHC 32.3, RDW Std Deviation 43.3, RDW Coeff of Eliezer 13.0, Plt Count 1086 H*, MPV 9.7, Immature Gran % (Auto) 0.600, Neut % (Auto) 63.3, Lymph % (Auto) 22.3, [place] % (Auto) 11.7 H, Eos % (Auto) 0.7, Baso % (Auto) 1.4 H, Absolute Neuts (auto) 7.8 H, Absolute Lymphs (auto) 2.75, Nucleated RBC % 0, Differential Comment SCANNED, Diff Path Review May foll, Platelet Estimate MKD INC, Sodium 135 L, Potassium 3.2 L, Chloride 97 L, Carbon Dioxide 34.0 H, Anion Gap 4 L, BUN 24 H, Creatinine 0.87, Estim Creat Clear Calc 106.99, Est GFR (MDRD) Af Amer 119, Est GFR (MDRD) Non-Af 98, BUN/Creatinine Ratio 27.7 H, Glucose 216 H, Calcium 10.0, Magnesium 2.2 03/12/23 12:44: POC Glucose 428 H Microbiology: Microbiology 03/02/23 11:00 Blood Culture (Wb) - Right Hand Blood Culture - Final No growth in 5 days. 03/02/23 10:54 Blood Culture (Wb) - Left Hand Blood Culture - Final No growth in 5 days. 02/26/23 12:45 Sputum, Induced/Lukens Gram Stain - Final 02/26/23 12:45 Sputum, Induced/Lukens Respiratory Culture - Final Meth. resistant Staph. aureus 02/26/23 09:15 Nasal Secretion SARS-CoV-2 Antigen (Rapid) - Final Meaningful Use Info Meaningful Use Diagnoses (Choose all that apply): None applicable Discharge Plan Admission Admit Date/Time: 02/24/23 02:20 Attending Provider: Sherri Rogers Primary Care Provider: Asha Arreaga Consulting Providers: Bill Moran; Jon Valdes; Luis E Ross; Francisco Sadler; Andrés Martinez; Hamilton Tolliver; Fransisca Langston NATURAL RESOURCES EXTENSION EDUCATOR; Rosetta Smith; Gilles Palmer; Khris Nair; Orion Mina; Mathieu Cordova; Carolina Diallo; Jose Luis Trujillo; Joey Olson; Rob Ross; Mason Duarte; Natty Lipscomb NATURAL RESOURCES EXTENSION EDUCATOR Discharge Orders/Prescriptions Prescriptions: No Action (DME) compress.stocking,knee,reg,lrg misc See Dose Instructions .ROUTE .MEDSUPPLY Qty: 2 1RF Dose Instruction: As directed Rx Instructions: wear daily for venous insufficiency 20-30 mmhg Mydayis 50 mg capsule, ER triphasic 24 hr 50 mg PO DAILY buprenorphine 10 mcg/hour patch weekly 1 patch TD Q7D fluticasone propionate 50 mcg/actuation spray,suspension 2 spray INTRANASAL DAILY PRN (Reason: Congestion) Qty: 16 2RF doxazosin 2 mg tablet 2 mg PO QHS Qty: 90 3RF meloxicam 15 mg tablet 15 mg PO DAILY PRN (Reason: pain) Qty: 30 2RF albuterol sulfate [ProAir HFA] 90 mcg/actuation HFA aerosol inhaler 1 - 2 puff inhalation Q6H PRN (Reason: shortness of breath or wheezing) Qty: 8.5 1RF (DME) blood sugar diagnostic 1 EACH strip .Route .MEDSUPPLY Rx Instructions: Use QID for Diabetes 2 trazodone 100 mg tablet 300 mg PO QHS (DME) pen needle, diabetic [Unifine Pentips] 31 gauge x 5/16 needle See Rx Instructions .ROUTE .COMPLEX Qty: 200 3RF Dose Instruction: USE DIRECTED Rx Instructions: USE DIRECTED alcohol swabs Pads, Medicated 4 pad TOPICAL .qid Qty: 200 3RF empagliflozin 25 mg tablet 25 mg PO QAM Qty: 90 3RF albuterol sulfate [Ventolin HFA] 90 mcg/actuation HFA aerosol inhaler 2 puff inhalation Q6H PRN (Reason: shortness of breath or wheezing) Qty: 8.5 0RF (DME) True Metrix Glucose Test Strip Strip See Rx Instructions .ROUTE .MEDSUPPLY Qty: 100 3RF Rx Instructions: As directed 3 times daily (DME) blood-glucose meter [True Metrix Glucose Meter] Misc See Rx Instructions .ROUTE .MEDSUPPLY Qty: 1 0RF Rx Instructions: As directed (DME) lancets [FreeStyle Lancets] 28 gauge misc See Dose Instructions .ROUTE .MEDSUPPLY Qty: 200 11RF Rx Instructions: As directed (DME) FreeStyle Frances 2 Saxton Misc See Rx Instructions .Route Qty: 1 3RF Rx Instructions: As directed insulin lispro [Humalog KwikPen Insulin] 100 unit/mL insulin pen See Rx Instructions .ROUTE .COMPLEX Qty: 15 3RF Dose Instruction: INJECT 25 UNITS SUBCUTANEOUSLY THREE TIMES A DAY FOR DIABETES Rx Instructions: INJECT 25 UNITS SUBCUTANEOUSLY THREE TIMES A DAY FOR DIABETES atorvastatin 40 mg tablet See Rx Instructions .ROUTE .COMPLEX Qty: 30 1RF Dose Instruction: TAKE 1 TABLET BY MOUTH DAILY Rx Instructions: TAKE 1 TABLET BY MOUTH DAILY fenofibrate nanocrystallized 145 mg tablet See Rx Instructions .ROUTE .COMPLEX Qty: 30 1RF Dose Instruction: TAKE 1 TABLET BY MOUTH DAILY Rx Instructions: TAKE 1 TABLET BY MOUTH DAILY hydrochlorothiazide 25 mg tablet See Rx Instructions .ROUTE .COMPLEX Qty: 30 1RF Dose Instruction: TAKE 1 TABLET BY MOUTH DAILY FOR WATER PILL Rx Instructions: TAKE 1 TABLET BY MOUTH DAILY FOR WATER PILL amlodipine 10 mg tablet See Rx Instructions .ROUTE .COMPLEX Qty: 30 1RF Dose Instruction: TAKE 1 TABLET BY MOUTH DAILY FOR BLOOD PRESSURE Rx Instructions: TAKE 1 TABLET BY MOUTH DAILY FOR BLOOD PRESSURE insulin degludec 100 unit/mL (3 mL) insulin pen 65 unit SC QHS 90 Days Qty: 58.5 0RF (DME) FreeStyle Frances 2 Sensor Kit See Rx Instructions .ROUTE .COMPLEX Qty: 1 3RF Dose Instruction: TEST BLOOD SUGAR FOUR TIMES A DAY Rx Instructions: TEST BLOOD SUGAR FOUR TIMES A DAY pantoprazole 40 mg tablet,delayed release (DR/EC) See Rx Instructions .ROUTE .COMPLEX Qty: 60 0RF Dose Instruction: TAKE 1 TABLET BY MOUTH DAILY FOR GERD Rx Instructions: TAKE 1 TABLET BY MOUTH DAILY FOR GERD metformin 500 mg tablet extended release 24hr 1,000 mg PO BID 90 Days Qty: 360 0RF Referrals / Follow Up: Masoud Torres MD [Med Staff - Active Staff] - Within 1 Month (hospital follow up for cardiomyopathy) Asha Arreaga MD [Primary Care Provider] - Within 1 Week Disposition Disposition (needs filled in before D/C Order can be placed): Against Medical Advice Charges/Coding Visit Charges Inpatient E&M: 04627 Disch Hosp >30min
[2023-03-14 13:24] LABS: Pathologist Review Reviewed
== END 2023-03-12 14:30 | disposition left against medical advice (07) | DRG 207 ==
LOC: ED 02-24 01:45 → ICU 02-24 03:04 → PCU 03-11 16:50
PROVIDERS: Emergency Medicine; Family Medicine; Internal Medicine; Internal Medicine Critical Care Medicine; Emergency Provider Emergency Medicine; PCP Internal Medicine; Visit Provider Student in an Organized Health Care Education/Training Program
DX: J15.212 Pneumonia due to Methicillin resistant Staphylococcus aureus (principal); I50.21 Acute systolic (congestive) heart failure; G93.41 Metabolic encephalopathy; J96.01 Acute respiratory failure with hypoxia; F10.221 Alcohol dependence with intoxication delirium; F10.231 Alcohol dependence with withdrawal delirium; I42.8 Other cardiomyopathies; R45.851 Suicidal ideations; I11.0 Hypertensive heart disease with heart failure; E11.65 Type 2 diabetes mellitus with hyperglycemia; I48.0 Paroxysmal atrial fibrillation; Z79.4 Long term (current) use of insulin; E83.39 Other disorders of phosphorus metabolism; E78.5 Hyperlipidemia, unspecified; K21.9 Gastro-esophageal reflux disease without esophagitis; G47.33 Obstructive sleep apnea (adult) (pediatric); M19.90 Unspecified osteoarthritis, unspecified site; F17.220 Nicotine dependence, chewing tobacco, uncomplicated; S51.811A Laceration without foreign body of right forearm, initial encounter; E87.6 Hypokalemia; E83.42 Hypomagnesemia; I95.2 Hypotension due to drugs; K59.03 Drug induced constipation; D75.838 Other thrombocytosis; E66.9 Obesity, unspecified; T40.605A Adverse effect of unspecified narcotics, initial encounter; T41.295A Adverse effect of other general anesthetics, initial encounter; Z68.32 Body mass index [BMI] 32.0-32.9, adult; Y90.8 Blood alcohol level of 240 mg/100 ml or more; Z78.1 Physical restraint status; Z90.81 Acquired absence of spleen; Z91.148 Patient's other noncompliance with medication regimen for other reason; Z91.198 Patient's noncompliance with other medical treatment and regimen for other reason; Z79.01 Long term (current) use of anticoagulants; Z79.84 Long term (current) use of oral hypoglycemic drugs; Z79.899 Other long term (current) drug therapy; Z53.29 Procedure and treatment not carried out because of patient's decision for other reasons
CPT/HCPCS: 31500; 31720; 36415; 36569; 36600; 70450; 71045; 80048; 80053; 80202; 80307; 82077; 82140; 82550; 82803; 82962; 83036; 83735; 83880; 84100; 84443; 84478; 85025; 87040; 87070; 87077; 87186; 87205; 87426; 90715; 92526; 92610; 93005; 93306; 94002; 94003; 94640; 94660; 94668; 94762; 97110; 97162; 97166; 97530; 97535; 97802; 97803; 99252; 99285; J7030; J7040; J7050; Q9957; A4216; C8929; G0463; J0295; J1940; J2405; J3486; J3490